=== PATIENT | male | born 1940 | race Caucasian/White ===

== ENCOUNTER 2017-05-05 18:05 | Emergency (ER) | payer OTHER ==
[~2017-05-05] VITALS: Ht 167.6 cm; Wt 92.5 kg
[~2017-05-05 18:05] MED LIST: ACET-1311 PO; ASCO500T3 PO; ASPEC81 PO; ATV5 PO; BROM0.07 OPL; LISI5TAB3 PO; METO25TA56 PO; MULT-506 PO; NTRGSL/4 UT; OXYC-57 PO; PRED1SUS3 OPL; PRLSR20 PO; SERT-234 PO; SIMV80TA2 PO
[2017-05-05 18:07] VITALS: TEMP 37.1; Ht 167.6 cm; Wt 92.5 kg
--- NOTE | 2017-05-05 18:42 | DIAGNOSTIC IMAGING REPORT ---
CHEST ONE VIEW PORTABLE CLINICAL HISTORY: 76 years-old Male presenting with ABDOMINAL PAIN/GI. TECHNIQUE: Portable upright AP view of the chest was obtained. COMPARISON: 01/05/2014. FINDINGS: Atherosclerosis of aortic arch. Cardiac silhouette top normal in size, unchanged. Mildly prominent lung markings at the bases. Otherwise lungs and pleural spaces clear. Osseous structures normal. Upper abdomen normal. IMPRESSION: 1. No acute cardiopulmonary disease. Electronically signed by: Jose Roberto Gordon M.D. 05/05/2017 6:40 PM Dictated Date/Time: 05/05/2017 6:39 PM
--- NOTE | 2017-05-05 18:47 | EMERGENCY ROOM VISIT NOTE ---
History Report prepared by Christi: Gabby Ellis Under the Supervision of: Dr. Reginald Hidalgo D.O. First contact with patient: 18:11 Chief Complaint: ABDOMINAL PAIN Stated Complaint: STOMACH PAIN,ACHES ALL OVER History of Present Illness The patient is a 76 year old male who presents to the Emergency Room with complaints of persistent constipation starting 3 days ago. He has not had any bowel movements in the past 3 days. He tried taking Mylanta yesterday to no significant relief. He started taking Miralax today. He is now having abdominal pain. It worsens with deep breaths. He had some diarrhea 1 week ago which resolved. He denies any melena, hematochezia, chest pain, SOB, or back pain. He has been on Percocet for back pain for the past 4-5 years. He has a history of spinal stenosis. He has not had constipation from Percocet before. He has not started any new medications recently. He does smoke. He denies any alcohol use. He denies any history of diverticulitis, diverticulosis, or kidney stones. He is currently not on any blood thinners. He has had a colonoscopy in the past. He states that he is due for a colonoscopy soon. Source of History: patient Onset: 3 days ago Position: other (global) Quality: other (constipation) Timing: other (persistent) Associated Symptoms: + abdominal pain, No chest pain, No SOB, No back pain, No melena, No hematochezia, No diarrhea Review of Systems See HPI for pertinent positives & negatives. A total of 10 systems reviewed and were otherwise negative. Past Medical & Surgical Medical Problems: (1) Acute cholecystitis (2) Hypertension Family History Cancer Heart disease Hypertension Social History Smoking Status: Current Every Day Smoker Alcohol Use: none Marital Status: Housing Status: lives with family Occupation Status: retired Current/Historical Medications Scheduled Ascorbic Acid (Vitamin C), 1 TAB PO DAILY Finasteride (Proscar), 1 TAB PO DAILY Fluticasone Propionate (Nasal) (Flonase Allergy Relief), 2 SPRAYS SIMONA DAILY Lisinopril (Lisinopril), 5 MG PO HS Loratadine (Claritin), 1 TAB PO DAILY Metoprolol Tartrate (Lopressor) (Lopressor), 25 MG PO BID Multivitamin (Multivitamin), 1 TAB PO DAILY Omeprazole (Prilosec), 20 MG PO BID Sertraline (Zoloft), 100 MG PO HS Simvastatin (Zocor), 80 MG PO HS Tamsulosin Hcl (Flomax), 0.4 MG PO HS Tolterodine Tartrate (Detrol LA), 1 CAP PO DAILY Trazodone Hcl (Trazodone), 100 MG PO HS Scheduled PRN Nitroglycerin (Nitrostat), 0.4 MG UT PRN PRN for CHEST PAIN Oxycodone/Acetaminophen 5MG/325MG (Percocet 5MG/325MG), 1 TABLET PO Q6H PRN for Pain Allergies Coded Allergies: Cefaclor (Verified Allergy, Intermediate, "SWELLED-UP", 05/05/17) Aspirin (Verified Allergy, Unknown, BLEEDING ULCER, 05/05/17) States he now takes 81mg daily with no trouble. Physical Exam Vital Signs Date Time Temp Pulse Resp B/P (MAP) Pulse Ox O2 Delivery O2 Flow Rate FiO2 05/05/17 21:27 100 20 130/76 95 05/05/17 19:54 106 20 121/82 94 Room Air 05/05/17 18:07 37.1 107 20 142/79 96 Room Air Physical Exam GENERAL: Patient is awake, alert, and in no acute distress. Patient is resting comfortably and showing no signs of anxiety EYES: The conjunctivae are clear. The pupils are round and reactive. EARS, NOSE, MOUTH AND THROAT: The nose is without any evidence of any deformity. Mucous membranes are moist tongue is midline NECK: The neck is nontender and supple. RESPIRATORY: Normal respiratory effort is noted there is no evidence of wheezing rhonchi or rales CARDIOVASCULAR: Regular rate and rhythm noted there no murmurs rubs or gallops normal S1 normal S2 GASTROINTESTINAL: The abdomen is moderately distended but soft. Diffuse tenderness to palpation but no guarding or rigidity. BACK: No midline tenderness or or step-off noted range of motion in flexion extension as well as rotation no signs of muscle spasm noted MUSCULOSKELETAL/EXTREMITIES: There is no evidence of gross deformity full range of motion is noted in the hips and shoulders SKIN: There is no obvious evidence of any rash. There are no petechiae, pallor or cyanosis noted. NEUROLOGIC: Patient is awake alert and oriented x3 Medical Decision & Procedures ER Provider Diagnostic Interpretation: X-ray results as stated below per interpretation by me and the radiologist. Radiology results as stated below per my review and radiologist interpretation: CHEST ONE VIEW PORTABLE CLINICAL HISTORY: 76 years-old Male presenting with ABDOMINAL PAIN/GI. TECHNIQUE: Portable upright AP view of the chest was obtained. COMPARISON: 01/05/2014. FINDINGS: Atherosclerosis of aortic arch. Cardiac silhouette top normal in size, unchanged. Mildly prominent lung markings at the bases. Otherwise lungs and pleural spaces clear. Osseous structures normal. Upper abdomen normal. IMPRESSION: 1. No acute cardiopulmonary disease. Electronically signed by: Jose Roberto Gordon M.D. 05/05/2017 6:40 PM Dictated Date/Time: 05/05/2017 6:39 PM ABD/PELVIS NO IV OR ORAL CONT CLINICAL HISTORY: 76 years-old Male presenting with pain, decreased BM. TECHNIQUE: Multidetector CT of the abdomen and pelvis was performed without the use of intravenous contrast. IV contrast: None. A dose lowering technique was used consistent with the principles of ALARA (as low as reasonably achievable). COMPARISON: None. CT DOSE (mGy.cm): The estimated cumulative dose is 921.74 mGy.cm. FINDINGS: Shopfitter topogram: Unremarkable. Lung bases: Minimal dependent changes likely atelectasis. Mosaic attenuation could suggest small airways disease. Multichamber enlargement of the heart. Coronary artery and aortic valve calcification. Trace pericardial effusion. No pleural effusion. Liver: Normal morphology. Density consistent with hepatic steatosis. Biliary: Mild dilatation of the extrahepatic bile duct allowing for noncontrast technique. Cholelithiasis with mild gallbladder distention and gallbladder wall thickening. Trace pericholecystic inflammatory change inferiorly. Pancreas: Mild parenchymal atrophy. Spleen: Normal noncontrast appearance. Adrenal glands: Normal noncontrast appearance. Kidneys and ureters: Bilateral nonobstructing renal calculi, the largest on the left measuring 3 mm and on the right measuring 2 mm. No hydronephrosis. Bladder: Incompletely evaluated secondary to underdistention. Pelvic organs: Prostate enlargement likely secondary to benign prostatic hyperplasia. Bowel: Diverticulosis of the sigmoid colon with mild wall thickening suggestive of chronic diverticular disease. Intramural fat deposition is suggested at multiple sites in the large bowel, which is nonspecific but could suggest chronic inflammatory change, extend exposure to steroids, or obesity. Normal appendix. No bowel obstruction. Peritoneal cavity: No free fluid or intraperitoneal gas. Lymph nodes: No gross lymphadenopathy allowing for noncontrast technique. Few prominent subcentimeter lymph nodes in the portacaval region likely reactive. Vasculature: Atherosclerosis of the normal caliber abdominal aorta. Displacement of intimal calcifications towards the lumen (series 3 image 169) suggest chronic dissection. Abdominal wall: Diastasis of the rectus abdominis. Musculoskeletal: Degenerative changes of the spine. Severe osteopenia. IMPRESSION: 1. Findings highly suspicious for acute cholecystitis. 2. Hepatic steatosis. 3. Bilateral nonobstructing nephrolithiasis. 4. 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 5. Osteopenia. The report will be called/faxed according to standard departmental protocol. Electronically signed by: Jose Roberto Gordon M.D. 05/05/2017 8:00 PM Dictated Date/Time: 05/05/2017 7:53 PM Laboratory Results 05/05/17 18:50 Red Blood Count 4.63, Mean Corpuscular Volume 89.4, Mean Corpuscular Hemoglobin 32.4, Mean Corpuscular Hemoglobin Concent 36.2, Mean Platelet Volume 9.8, Neutrophils (%) (Auto) 79.6, Lymphocytes (%) (Auto) 10.5, Monocytes (%) (Auto) 9.2, Eosinophils (%) (Auto) 0.3, Basophils (%) (Auto) 0.1, Neutrophils # (Auto) 11.80, Lymphocytes # (Auto) 1.56, Monocytes # (Auto) 1.37, Eosinophils # (Auto) 0.04, Basophils # (Auto) 0.02 05/05/17 18:50 Test 05/05/17 18:50 White Blood Count 14.83 K/uL (4.8-10.8) Red Blood Count 4.63 M/uL (4.7-6.1) Hemoglobin 15.0 g/dL (14.0-18.0) Hematocrit 41.4 % (42-52) Mean Corpuscular Volume 89.4 fL (80-100) Mean Corpuscular Hemoglobin 32.4 pg (25-34) Mean Corpuscular Hemoglobin Concent 36.2 g/dl (32-36) Platelet Count 205 K/uL (130-400) Mean Platelet Volume 9.8 fL (7.4-10.4) Neutrophils (%) (Auto) 79.6 % Lymphocytes (%) (Auto) 10.5 % Monocytes (%) (Auto) 9.2 % Eosinophils (%) (Auto) 0.3 % Basophils (%) (Auto) 0.1 % Neutrophils # (Auto) 11.80 K/uL (1.4-6.5) Lymphocytes # (Auto) 1.56 K/uL (1.2-3.4) Monocytes # (Auto) 1.37 K/uL (0.11-0.59) Eosinophils # (Auto) 0.04 K/uL (0-0.5) Basophils # (Auto) 0.02 K/uL (0-0.2) RDW Standard Deviation 44.7 fL (36.4-46.3) RDW Coefficient of Variation 13.6 % (11.5-14.5) Immature Granulocyte % (Auto) 0.3 % Immature Granulocyte # (Auto) 0.04 K/uL (0.00-0.02) Urine Color DK YELLOW Urine Appearance CLEAR (CLEAR) Urine pH 7.5 (4.5-7.5) Urine Specific [place] 1.026 (1.000-1.030) Urine Protein 1+ (NEG) Urine Glucose (UA) NEG (NEG) Urine Ketones TRACE (NEG) Urine Occult Blood 2+ (NEG) Urine Nitrite NEG (NEG) Urine Bilirubin NEG (NEG) Urine Urobilinogen NEG (NEG) Urine Leukocyte Esterase TRACE (NEG) Urine WBC (Auto) 1-5 /hpf (0-5) Urine RBC (Auto) >30 /hpf (0-4) Urine Hyaline Casts (Auto) >30 /lpf (0-5) Urine Epithelial Cells (Auto) >30 /lpf (0-5) Urine Bacteria (Auto) 1+ (NEG) Urine Renal Epithelial Cells /lpf (0-5) Urine Pathogenic Casts /lpf (0) Urine Mucus PRESENT (NONE PRSENT) Anion Gap 9.0 mmol/L (3-11) Est Creatinine Clear Calc Drug Dose 70.0 ml/min Estimated GFR () 88.1 Estimated GFR (Non- 76.1 BUN/Creatinine Ratio 14.2 (10-20) Calcium Level 9.2 mg/dl (8.5-10.1) Total Bilirubin 0.7 mg/dl (0.2-1) Direct Bilirubin 0.2 mg/dl (0-0.2) Aspartate Amino Transf (AST/SGOT) 19 U/L (15-37) Alanine Aminotransferase (ALT/SGPT) 22 U/L (12-78) Alkaline Phosphatase 90 U/L (45-117) Troponin I < 0.015 ng/ml (0-0.045) Total Protein 8.5 gm/dl (6.4-8.2) Albumin 3.7 gm/dl (3.4-5.0) Lipase 63 U/L (73-393) Laboratory results per my review. Medications Administered Medications (Trade) Dose Ordered Sig/Cristina Route Start Time Stop Time Status Last Admin Dose Admin Amoxicillin/ Clavulanate Potassium (Augmentin 875MG Home Pack) 1 homepack UD ONCE PO 05/05/17 20:15 05/05/17 20:16 DC 05/05/17 20:47 1 HOMEPACK Amoxicillin/ Clavulanate Potassium (Augmentin Tab) 875 mg NOW ONCE PO 05/05/17 20:15 05/05/17 20:16 DC 05/05/17 20:47 875 MG ECG Indication: tachycardia Rate (beats per minute): 101 Rhythm: sinus tachycardia Findings: PVC, other (LVH by voltage criteria, no acute ST segment abnormality) Comparison ECG Date: 05-Jan-2011 Change: Increased rate otherwise no change. ED Course 1817: The patient was evaluated in room C7. A complete history and physical examination were performed. 1926: I reevaluated the patient. He is stable. He would like to go home. 2004: NSS 1000 ml @ 999 mls/hr IV, Zofran Inj 4 mg IV, Zosyn Iv 4.5 gm IV. 2005: I discussed the patient's case with Dr. Bustillos, [facility] [place] general surgery. He will evaluate the patient. 2006: I reevaluated the patient. I discussed the results with him. He states that he does not want to stay because his granddaughter needs the car. He will sign out against medical advice. 2015: Augmentin Tab 875 mg PO, Augmentin 875 mg 1 homepack PO, Morphine Sulfate 4 mg IV. 2016: Dr. Bustillos has evaluated the patient. The patient is still refusing to stay. He will sign out again medical advice. Medical Decision Prior records/ancillary studies reviewed. Triage Nursing notes reviewed. The patient's history was concerning for abdominal pain. Differential diagnosis: Etiologies such as appendicitis, diverticulitis, PUD, biliary pathology, UTI, pancreatitis, obstruction, mesenteric ischemia, aortic pathology, infections, inflammatory bowel disease, renal colic, as well as others were entertained. The patient is a 76-year-old male who presented to the emergency department for abdominal pain. The patient also felt constipated. On physical exam he did have significant right upper quadrant tenderness but also diffuse tenderness. The patient's workup was consistent with cholecystitis. He was ordered IV pain medicine IV fluids IV antiemetics and IV antibiotics but the patient did not wish to stay in the hospital for an evaluation and for further management of this cholecystitis. I discussed his case with the on-call general surgeon. He was evaluated by the on-call general surgeon while he was in the emergency department. The patient still signed out against medical dermatologist and was encouraged to return immediately after he went home. The patient stated he had some things he needed to do at home. The patient was encouraged to return to the emergency Department immediately and not have any food or drink. He was started on a course of oral antibiotics but I told him that this would not be a replacement for what he needed which was a cholecystectomy and further evaluation of his hepatobiliary system. The patient was reevaluated multiple times. Medication Reconcilliation Current Medication List: was personally reviewed by me Blood Pressure Screening Patient's blood pressure: Normal blood pressure Blood pressure disposition: Did not require urgent referral Consults Consulting Physician: Dr. Bustillos, [facility] [place] general surgery Returned Call: [phone] I discussed the patient's case with him. He will evaluate the patient. Impression Primary Impression: Cholecystitis Additional Impression: Abdominal pain Scribe Attestation The scribe's documentation has been prepared under my direction and personally reviewed by me in its entirety. I confirm that the note above accurately reflects all work, treatment, procedures, and medical decision making performed by me. Departure Information Dispostion Home / Self-Care Referrals Cindy Gibbons D.O. (PCP) Salas Gibbons D.O. Forms Call Back Authorization, HOME CARE DOCUMENTATION FORM, IMPORTANT VISIT INFORMATION Patient Instructions ED Gallbladder Infec Conf, [facility] Additional Instructions Return to the emergency department immediately as soon as he can for further evaluation and IV antibiotics IV fluids and further evaluation for surgical intervention on your gallbladder. Try not to eat or drink prior to coming back to the emergency department. Continue all medications as prescribed. Problem Qualifiers Additional Impression: Abdominal pain Abdominal location: generalized Qualified Codes: R10.84 - Generalized abdominal pain
[2017-05-05] MEDS ORDERED: FLUT0.15 NAE (18:56)
[2017-05-05] MEDS ORDERED: ASPI81TA21 PO (18:56)
[2017-05-05] MEDS ORDERED: ANXIETY MED PO (18:56)
[2017-05-05] MEDS ORDERED: LSN5 PO (18:56)
[2017-05-05 19:02] LABS: BASO % 0.1 %; BASO ABS # 0.02 K/uL (0-0.2); COMPLETE YES; EOS % 0.3 %; HEMATOCRIT 41.4 % (42-52); IG% 0.3 %; LYMPH % 10.5 %; LYMPH ABS # 1.56 K/uL (1.2-3.4); MEAN CELL VOLUME 89.4 fL (80-100); MEAN CORPUSCULAR HEMOGLOBIN 32.4 pg (25-34); MEAN CORPUSCULAR HGB CONC 36.2 g/dl (32-36); MEAN PLATELET VOLUME 9.8 fL (7.4-10.4); MONO % 9.2 %; NEUT % 79.6 %; PLATELET COUNT 205 K/uL (130-400); RED BLOOD COUNT 4.63 M/uL (4.7-6.1); WHITE BLOOD COUNT 14.83 K/uL (4.8-10.8)
[2017-05-05 19:13] LABS: URINE APPEARANCE CLEAR (CLEAR); URINE COLOR DK YELLOW; URINE EPITHELIAL CELL AUTO >30 /lpf (0-5); URINE NITRITE NEG (NEG); URINE PH 7.5 (4.5-7.5); URINE SPECIFIC GRAVITY 1.026 (1.000-1.030); UROBILINOGEN NEG (NEG)
[2017-05-05 19:19] LABS: BUN/CREATININE RATIO 14.2 (10-20); CALCIUM 9.2 mg/dl (8.5-10.1); CREATININE 0.97 mg/dl (0.60-1.40); POTASSIUM 3.6 mmol/L (3.5-5.1)
[2017-05-05 19:24] LABS: MANUAL MICROSCOPIC REQUIRED? NO; REVIEW REQ? YES; SULFASALICYLIC ACID POS (NEG); URINE BILIRUBIN NEG (NEG)
[2017-05-05 19:26] LABS: URINE MUCUS PRESENT (NONE PRSENT)
--- NOTE | 2017-05-05 20:02 | DIAGNOSTIC IMAGING REPORT ---
ABD/PELVIS NO IV OR ORAL CONT CLINICAL HISTORY: 76 years-old Male presenting with pain, decreased BM. TECHNIQUE: Multidetector CT of the abdomen and pelvis was performed without the use of intravenous contrast. IV contrast: None. A dose lowering technique was used consistent with the principles of ALARA (as low as reasonably achievable). COMPARISON: None. CT DOSE (mGy.cm): The estimated cumulative dose is 921.74 mGy.cm. FINDINGS: Brass Plater topogram: Unremarkable. Lung bases: Minimal dependent changes likely atelectasis. Mosaic attenuation could suggest small airways disease. Multichamber enlargement of the heart. Coronary artery and aortic valve calcification. Trace pericardial effusion. No pleural effusion. Liver: Normal morphology. Density consistent with hepatic steatosis. Biliary: Mild dilatation of the extrahepatic bile duct allowing for noncontrast technique. Cholelithiasis with mild gallbladder distention and gallbladder wall thickening. Trace pericholecystic inflammatory change inferiorly. Pancreas: Mild parenchymal atrophy. Spleen: Normal noncontrast appearance. Adrenal glands: Normal noncontrast appearance. Kidneys and ureters: Bilateral nonobstructing renal calculi, the largest on the left measuring 3 mm and on the right measuring 2 mm. No hydronephrosis. Bladder: Incompletely evaluated secondary to underdistention. Pelvic organs: Prostate enlargement likely secondary to benign prostatic hyperplasia. Bowel: Diverticulosis of the sigmoid colon with mild wall thickening suggestive of chronic diverticular disease. Intramural fat deposition is suggested at multiple sites in the large bowel, which is nonspecific but could suggest chronic inflammatory change, extend exposure to steroids, or obesity. Normal appendix. No bowel obstruction. Peritoneal cavity: No free fluid or intraperitoneal gas. Lymph nodes: No gross lymphadenopathy allowing for noncontrast technique. Few prominent subcentimeter lymph nodes in the portacaval region likely reactive. Vasculature: Atherosclerosis of the normal caliber abdominal aorta. Displacement of intimal calcifications towards the lumen (series 3 image 169) suggest chronic dissection. Abdominal wall: Diastasis of the rectus abdominis. Musculoskeletal: Degenerative changes of the spine. Severe osteopenia. IMPRESSION: 1. Findings highly suspicious for acute cholecystitis. 2. Hepatic steatosis. 3. Bilateral nonobstructing nephrolithiasis. 4. 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 5. Osteopenia. The report will be called/faxed according to standard departmental protocol. Electronically signed by: Jose Roberto Gordon M.D. 05/05/2017 8:00 PM Dictated Date/Time: 05/05/2017 7:53 PM
[2017-05-05] MEDS ORDERED: PIPERACILLIN/TAZOBACTAM 4.5 GM/100ML D5W IV STA (20:04)
[2017-05-05] MEDS ORDERED: ONDANSETRON INJ 2 MG/ML 2 ML VIAL IV STA (20:04)
[2017-05-05] MEDS ORDERED: SODIUM CHLORIDE 0.9% 1000ML 1,000 ML IV STA (20:04)
[2017-05-05] MEDS ORDERED: AMOXICIL/CLAVU 875MG HOME PACK PO ONE (20:15)
[2017-05-05] MEDS ORDERED: AMOXICILLIN/CLAVULANATE TAB 875 MG TAB PO ONE (20:15)
[2017-05-05] MEDS ORDERED: MoRPHine SULFATE 4 MG/ML 1 ML CARP\\VIAL IV PRN (20:15)
--- NOTE | 2017-05-05 20:54 | Medical Consult ---
Consultation Date of Consultation: May 05, 2017. Attending Physician: Reason for Consultation: Cholecystitis History of Present Illness 76-year-old male presented to the emergency department with several day history of abdominal pain. Initially thought this was constipation and gas pains. He denies any history of postprandial pain or similar pains in the past. He had an elevated white count was very tender on exam in the right upper quadrant. A CT scan revealed what appears to be acute cholecystitis. The patient has a history of possible myocardial infarction in the past that was seen on a nuclear stress test, and he occasionally takes nitroglycerin tablets for angina. He denies ever having a history of stent placed. He is not on any blood thinning medications except for a baby aspirin. He says he can walk up 2 flights of stairs without difficulty. He is an active smoker. He endorses some nausea, but denies any fevers. He states he has some things to do before he would be admitted to the hospital. Past Medical/Surgical History Past medical history: Hypertension, nicotine dependence, hyperlipidemia, history of bleeding gastric ulcer, history of myocardial infarction Past surgical history: Denies history of abdominal surgery. Family History Cancer Heart disease Hypertension Social History Smoking Status: Current Every Day Smoker Marital Status: Housing Status: lives with family Occupation Status: retired Allergies Coded Allergies: Cefaclor (Verified Allergy, Intermediate, "SWELLED-UP", 05/05/17) Aspirin (Verified Allergy, Unknown, BLEEDING ULCER, 05/05/17) States he now takes 81mg daily with no trouble. Home Medications Active Reported [Anxiety Med(New)] Unknown Dose PO DIRECTED PRN Flonase Allergy Relief (Fluticasone Propionate (Nasal)) 50 Mcg/Act Spr 2 Sprays SIMONA DAILY Lisinopril 5 Mg Tab 5 Mg PO HS Ecotrin Or Generic (Aspirin) 81 Mg Tab 81 Mg PO HS Tylenol (Acetaminophen) 325 Mg Tab 325 Mg PO PRN Zoloft (Sertraline HCl) 100 Mg Tab 100 Mg PO HS Vitamin C (Ascorbic Acid) 500 Mg Tab 1 Tab PO DAILY Nitrostat (Nitroglycerin) 0.4 Mg Tab 0.4 Mg UT PRN PRN Percocet 5MG/325MG (Oxycodone/Acetaminophen) Tab 1 Tablet PO Q6H PRN PAIN Lopressor (Metoprolol Tartrate) 25 Mg Tab 25 Mg PO BID Prilosec (Omeprazole) 20 Mg Capcr 20 Mg PO BID Multivitamin (Multivitamins) Tab 1 Tab PO DAILY Zocor (Simvastatin) 80 Mg Tab 80 Mg PO HS Current Inpatient Medications 10 point review of systems negative except as above Physical Exam Date Time Temp Pulse Resp B/P (MAP) Pulse Ox O2 Delivery O2 Flow Rate FiO2 05/05/17 19:54 106 20 121/82 94 Room Air 05/05/17 18:07 37.1 107 20 142/79 96 Room Air General Appearance: WD/WN, + moderate distress, + obese Head: normocephalic, atraumatic Eyes: normal inspection, PERRL, EOMI ENT: normal ENT inspection, hearing grossly normal Neck: supple, no adenopathy, no JVD Respiratory/Chest: chest non-tender, no respiratory distress, no accessory muscle use, + crackles Cardiovascular: regular rate, rhythm, no edema, no JVD, normal peripheral pulses Abdomen/GI: normal bowel sounds, soft, no organomegaly, no pulsatile mass, + tenderness (tender to palpation in right upper quadrant with localized guarding and positive Schaefer sign.) Back: normal inspection, no muscle spasm Extremities/Musculoskelatal: normal inspection, no calf tenderness, no pedal edema Neurologic/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: 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, alert, normal mood/affect, oriented x 3 Skin: normal color, warm/dry, no rash Lymphatic: no adenopathy Laboratory Results Last 24 Hours Test 05/05/17 18:50 White Blood Count 14.83 K/uL Red Blood Count 4.63 M/uL Hemoglobin 15.0 g/dL Hematocrit 41.4 % Mean Corpuscular Volume 89.4 fL Mean Corpuscular Hemoglobin 32.4 pg Mean Corpuscular Hemoglobin Concent 36.2 g/dl Platelet Count 205 K/uL Mean Platelet Volume 9.8 fL Neutrophils (%) (Auto) 79.6 % Lymphocytes (%) (Auto) 10.5 % Monocytes (%) (Auto) 9.2 % Eosinophils (%) (Auto) 0.3 % Basophils (%) (Auto) 0.1 % Neutrophils # (Auto) 11.80 K/uL Lymphocytes # (Auto) 1.56 K/uL Monocytes # (Auto) 1.37 K/uL Eosinophils # (Auto) 0.04 K/uL Basophils # (Auto) 0.02 K/uL RDW Standard Deviation 44.7 fL RDW Coefficient of Variation 13.6 % Immature Granulocyte % (Auto) 0.3 % Immature Granulocyte # (Auto) 0.04 K/uL Urine Color DK YELLOW Urine Appearance CLEAR Urine pH 7.5 Urine Specific [place] 1.026 Urine Protein 1+ Urine Glucose (UA) NEG Urine Ketones TRACE Urine Occult Blood 2+ Urine Nitrite NEG Urine Bilirubin NEG Urine Urobilinogen NEG Urine Leukocyte Esterase TRACE Urine WBC (Auto) 1-5 /hpf Urine RBC (Auto) >30 /hpf Urine Hyaline Casts (Auto) >30 /lpf Urine Epithelial Cells (Auto) >30 /lpf Urine Bacteria (Auto) 1+ Urine Renal Epithelial Cells /lpf Urine Pathogenic Casts /lpf Urine Mucus PRESENT Sodium Level 130 mmol/L Potassium Level 3.6 mmol/L Chloride Level 95 mmol/L Carbon Dioxide Level 26 mmol/L Anion Gap 9.0 mmol/L Blood Urea Nitrogen 14 mg/dl Creatinine 0.97 mg/dl Est Creatinine Clear Calc Drug Dose 70.0 ml/min Estimated GFR () 88.1 Estimated GFR (Non- 76.1 BUN/Creatinine Ratio 14.2 Random Glucose 147 mg/dl Calcium Level 9.2 mg/dl Total Bilirubin 0.7 mg/dl Direct Bilirubin 0.2 mg/dl Aspartate Amino Transf (AST/SGOT) 19 U/L Alanine Aminotransferase (ALT/SGPT) 22 U/L Alkaline Phosphatase 90 U/L Troponin I < 0.015 ng/ml Total Protein 8.5 gm/dl Albumin 3.7 gm/dl Lipase 63 U/L ABD/PELVIS NO IV OR ORAL CONT CLINICAL HISTORY: 76 years-old Male presenting with pain, decreased BM. TECHNIQUE: Multidetector CT of the abdomen and pelvis was performed without the use of intravenous contrast. IV contrast: None. A dose lowering technique was used consistent with the principles of ALARA (as low as reasonably achievable). COMPARISON: None. CT DOSE (mGy.cm): The estimated cumulative dose is 921.74 mGy.cm. FINDINGS: Hospitality Housekeeper topogram: Unremarkable. Lung bases: Minimal dependent changes likely atelectasis. Mosaic attenuation could suggest small airways disease. Multichamber enlargement of the heart. Coronary artery and aortic valve calcification. Trace pericardial effusion. No pleural effusion. Liver: Normal morphology. Density consistent with hepatic steatosis. Biliary: Mild dilatation of the extrahepatic bile duct allowing for noncontrast technique. Cholelithiasis with mild gallbladder distention and gallbladder wall thickening. Trace pericholecystic inflammatory change inferiorly. Pancreas: Mild parenchymal atrophy. Spleen: Normal noncontrast appearance. Adrenal glands: Normal noncontrast appearance. Kidneys and ureters: Bilateral nonobstructing renal calculi, the largest on the left measuring 3 mm and on the right measuring 2 mm. No hydronephrosis. Bladder: Incompletely evaluated secondary to underdistention. Pelvic organs: Prostate enlargement likely secondary to benign prostatic hyperplasia. Bowel: Diverticulosis of the sigmoid colon with mild wall thickening suggestive of chronic diverticular disease. Intramural fat deposition is suggested at multiple sites in the large bowel, which is nonspecific but could suggest chronic inflammatory change, extend exposure to steroids, or obesity. Normal appendix. No bowel obstruction. Peritoneal cavity: No free fluid or intraperitoneal gas. Lymph nodes: No gross lymphadenopathy allowing for noncontrast technique. Few prominent subcentimeter lymph nodes in the portacaval region likely reactive. Vasculature: Atherosclerosis of the normal caliber abdominal aorta. Displacement of intimal calcifications towards the lumen (series 3 image 169) suggest chronic dissection. Abdominal wall: Diastasis of the rectus abdominis. Musculoskeletal: Degenerative changes of the spine. Severe osteopenia. IMPRESSION: 1. Findings highly suspicious for acute cholecystitis. 2. Hepatic steatosis. 3. Bilateral nonobstructing nephrolithiasis. 4. 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 5. Osteopenia. The report will be called/faxed according to standard departmental protocol. Assessment & Plan 76-year-old male with likely acute calculus cholecystitis. He does have a history of prior myocardial infarction and some intermittent angina, therefore he will need a cardiac workup prior to any surgical intervention. He also needs a right upper quadrant AROUND for further evaluation of his gallbladder and bile ducts. The patient states that he has to go home and take care of some things, and then he will return to be admitted later this evening Recommend admission to the hospitalist service Nothing by mouth, IV fluids, IV antibiotics Recommend right upper quadrant ultrasound when he returns Recurrent preop cardiac evaluation given history of myocardial infarction We will plan for endoscopic cholecystectomy with possible intraoperative cholangiogram during his hospital stay The risks of the procedure were discussed include but are not limited to bleeding, infection, damage, bile duct, retained stone, bile leak, conversion to open, damage to surrounding structures, need for future more extensive surgery, and the risks of anesthesia The diagnosis, details of the surgery, the plan of care were discussed with the patient, all questions were answered, the patient expressed understanding and agreed with the plan of care as stated. He states he'll return to admitted to the hospitalist service later this evening
[2017-05-05 21:27] VITALS: BP 130/76; PULSE 100; O2SAT 95
[2017-05-05] MEDS ORDERED: FINA5TAB4 PO (23:40)
[2017-05-05] MEDS ORDERED: TAMS0.4C38 PO (23:40)
[2017-05-05] MEDS ORDERED: DTRSR4 PO (23:40)
[2017-05-05] MEDS ORDERED: LORA10TA51 PO (23:40)
[2017-05-05] MEDS ORDERED: TRAZ100T29 PO (23:40)
== END 2017-05-05 20:46 | disposition left against medical advice (07) ==
LOC: C.EDB 18:06 → C.EDC 20:46
DX: K81.2 Acute cholecystitis with chronic cholecystitis (principal); I10 Essential (primary) hypertension; F17.200 Nicotine dependence, unspecified, uncomplicated; Z79.891 Long term (current) use of opiate analgesic; Z82.49 Family history of ischemic heart disease and other diseases of the circulatory system

== ENCOUNTER 2017-05-05 21:41 | Inpatient (IN) | payer OTHER ==
[~2017-05-05] VITALS: Ht 170.2 cm; Wt 92.4 kg
[~2017-05-05 21:41] MED LIST changes: +ANXIETY MED PO; +ASPI81TA21 PO; +FLUT0.15 NAE; +LSN5 PO
[2017-05-05] MEDS ORDERED: ONDANSETRON INJ 2 MG/ML 2 ML VIAL IV STA (21:53)
[2017-05-05] MEDS ORDERED: HYDROmorphone INJ 0.5 MG/0.5 ML SYR IV STA (21:53)
[2017-05-05] MEDS ORDERED: METRONIDAZOLE 500MG / 100ML NSS IV STA (21:53)
[2017-05-05] MEDS ORDERED: LEVAQUIN 750MG / 150ML D5W IV ONE (22:00)
[2017-05-05] MEDS ORDERED: SODIUM CHLORIDE 0.9% 1000ML 1,000 ML IV ONE (22:00)
--- NOTE | 2017-05-05 22:19 | EMERGENCY ROOM VISIT NOTE ---
ED Visit Note First contact with patient: 21:47 76-year-old male with abdominal pain returned after an earlier visit today and was evaluated by Rambo Sebastian PA-C. Please see his note. I also independently evaluated the patient. The patient will be admitted and prepared for possible cholecystectomy. The patient was given IV antibiotics.
[2017-05-05] MEDS ORDERED: ACETAMINOPHEN 325 MG TAB PO PRN (23:00)
[2017-05-05] MEDS ORDERED: ONDANSETRON INJ 2 MG/ML 2 ML VIAL IV PRN (23:00)
[2017-05-05] MEDS ORDERED: TAMS0.4C38 PO (23:40)
[2017-05-05] MEDS ORDERED: DTRSR4 PO (23:40)
[2017-05-05] MEDS ORDERED: FINA5TAB4 PO (23:40)
[2017-05-05] MEDS ORDERED: LORA10TA51 PO (23:40)
[2017-05-05] MEDS ORDERED: TRAZ100T29 PO (23:40)
[2017-05-05] MEDS: MoRPHine SULFATE 2 MG/ML CARP IV PRN (23:42)
[2017-05-06] MEDS ORDERED: PIPERACILL/TAZOBAC CONSULT ACTIVE PRN (00:15)
[2017-05-06] MEDS ORDERED: PIPERACILL/TAZOBAC IV 3.375 GM in DEXTROSE 5% 100ML 100 ML IV ONE (00:30)
[2017-05-06 00:45] VITALS: BP 128/72; PULSE 105; TEMP 36.6; O2SAT 95; Ht 170.2 cm; Wt 92.4 kg
--- NOTE | 2017-05-06 00:50 | History and Physical ---
History & Physical Date & Time of Service: May 05, 2017 at 23:45 Chief Complaint: Gallbladder, Infection Primary Care Physician: Salas Gibbons D.OIsabel History of Present Illness Source: patient, family, clinic records, hospital records 76 year old male with PMH CAD, tobacco use, dyslipidemia, chronic rhinitis presents to the Emergency Room with complaints of Abdominal pain. Pt was in the ER early and signed AMA because he had to gave the car to his granddaughter. Now return back to the ER. Pt said that He continue to have 10/10 abdominal pain , constant, located across the abdomen. Worsening with deep breathing. Pt said that He has not had any bowel movements in the past 3 days. He thought the pain was due to the constipation. He tried taking Mylanta yesterday with no significant relief. He said about 1 week ago he had diarrhea. He does have some nausea but no episodes of vomiting. He was seen by surgery early Dr. Tressa molina recommended to get an U/S and plan for endoscopic cholecystectomy with possible intraoperative cholangiogram. Pt said that he is very active. He said that last time he took nitro for chest discomfort was about 6 to 8 months ago. He denies any chest pain, palpitation, dizziness, fever , vomiting and SOB Past Medical/Surgical History Medical Problems: (1) Hypertension Status: Chronic Family History Cancer Heart disease Hypertension Social History Smoking Status: Current Every Day Smoker Marital Status: Housing status: lives alone Occupational Status: retired Immunizations History of Influenza Vaccine: Yes History of Tetanus Vaccine?: Yes History of Pneumococcal: No History of Hepatitis B Vaccine: Unknown Allergies Coded Allergies: Cefaclor (Verified Allergy, Intermediate, "SWELLED-UP", 05/05/17) Aspirin (Verified Allergy, Unknown, BLEEDING ULCER, 05/05/17) States he now takes 81mg daily with no trouble. Home Medications Scheduled Ascorbic Acid (Vitamin C), 1 TAB PO DAILY Finasteride (Proscar), 1 TAB PO DAILY Fluticasone Propionate (Nasal) (Flonase Allergy Relief), 2 SPRAYS SIMONA DAILY Lisinopril (Lisinopril), 5 MG PO HS Loratadine (Claritin), 1 TAB PO DAILY Metoprolol Tartrate (Lopressor) (Lopressor), 25 MG PO BID Multivitamin (Multivitamin), 1 TAB PO DAILY Omeprazole (Prilosec), 20 MG PO BID Sertraline (Zoloft), 100 MG PO HS Simvastatin (Zocor), 80 MG PO HS Tamsulosin Hcl (Flomax), 0.4 MG PO HS Tolterodine Tartrate (Detrol LA), 1 CAP PO DAILY Trazodone Hcl (Trazodone), 100 MG PO HS Scheduled PRN Nitroglycerin (Nitrostat), 0.4 MG UT PRN PRN for CHEST PAIN Oxycodone/Acetaminophen 5MG/325MG (Percocet 5MG/325MG), 1 TABLET PO Q6H PRN for Pain Review of Systems Constitutional: No fever, No chills Eyes: No worsening of vision, No eye pain ENT: + nasal symptoms, No hearing loss, No sore throat Respiratory: No cough, No sputum, No shortness of breath Cardiovascular: No chest pain, No orthopnea, No claudication, No palpitations Abdomen: + pain, + nausea, + constipation Musculoskeletal: No calf pain Genitourinary - Male: No hematuria, No dysuria Neurologic: No paralysis Psychiatric: No substance abuse Endocrine: No excessive thirst Hematologic / Lymphatic: No abnormal bleeding/bruising Integumentary: No rash, No itch Physical Exam Vital Signs Date Time Temp Pulse Resp B/P (MAP) Pulse Ox O2 Delivery O2 Flow Rate FiO2 05/05/17 23:19 96 20 125/81 93 Room Air 05/05/17 21:44 36.8 112 18 122/71 97 Room Air General Appearance: WD/WN, no apparent distress Head: normocephalic, atraumatic Eyes: PERRL, EOMI ENT: hearing grossly normal Neck: no JVD, trachea midline Respiratory/Chest: normal breath sounds, no respiratory distress, no accessory muscle use Cardiovascular: no edema, no gallop, no JVD, + tachycardia Abdomen/GI: normal bowel sounds, + tenderness (difuse tenderness), + guarding Back: normal inspection Extremities/Musculoskelatal: no calf tenderness Neurologic/Psych: no motor/sensory deficits, alert, normal mood/affect, oriented x 3 Skin: warm/dry, no rash Diagnostics Laboratory Results ABD/PELVIS NO IV OR ORAL CONT CLINICAL HISTORY: 76 years-old Male presenting with pain, decreased BM. TECHNIQUE: Multidetector CT of the abdomen and pelvis was performed without the use of intravenous contrast. IV contrast: None. A dose lowering technique was used consistent with the principles of ALARA (as low as reasonably achievable). COMPARISON: None. CT DOSE (mGy.cm): The estimated cumulative dose is 921.74 mGy.cm. 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 Lung bases: Minimal dependent changes likely atelectasis. Mosaic attenuation could suggest small airways disease. Multichamber enlargement of the heart. Coronary artery and aortic valve calcification. Trace pericardial effusion. No pleural effusion. Liver: Normal morphology. Density consistent with hepatic steatosis. Biliary: Mild dilatation of the extrahepatic bile duct allowing for noncontrast technique. Cholelithiasis with mild gallbladder distention and gallbladder wall thickening. Trace pericholecystic inflammatory change inferiorly. Pancreas: Mild parenchymal atrophy. Spleen: Normal noncontrast appearance. Adrenal glands: Normal noncontrast appearance. Kidneys and ureters: Bilateral nonobstructing renal calculi, the largest on the left measuring 3 mm and on the right measuring 2 mm. No hydronephrosis. Bladder: Incompletely evaluated secondary to underdistention. Pelvic organs: Prostate enlargement likely secondary to benign prostatic hyperplasia. Bowel: Diverticulosis of the sigmoid colon with mild wall thickening suggestive of chronic diverticular disease. Intramural fat deposition is suggested at multiple sites in the large bowel, which is nonspecific but could suggest chronic inflammatory change, extend exposure to steroids, or obesity. Normal appendix. No bowel obstruction. Peritoneal cavity: No free fluid or intraperitoneal gas. Lymph nodes: No gross lymphadenopathy allowing for noncontrast technique. Few prominent subcentimeter lymph nodes in the portacaval region likely reactive. Vasculature: Atherosclerosis of the normal caliber abdominal aorta. Displacement of intimal calcifications towards the lumen (series 3 image 169) suggest chronic dissection. Abdominal wall: Diastasis of the rectus abdominis. Musculoskeletal: Degenerative changes of the spine. Severe osteopenia. IMPRESSION: 1. Findings highly suspicious for acute cholecystitis. 2. Hepatic steatosis. 3. Bilateral nonobstructing nephrolithiasis. 4. 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 5. Osteopenia. The report will be called/faxed according to standard departmental protocol. Electronically signed by: Jose Roberto Gordon M.D. 05/05/2017 8:00 PM Dictated Date/Time: 05/05/2017 7:53 PM Impression Assessment and Plan Acute cholecystitis Present with severe diffuse abdominal pain CT abd/pelvis showed findings highly suspicious for acute cholecystitis Elevated WBC with normal LFTs Was seen by Surgery Dr. Bustillos plan for endoscopic cholecystectomy with possible intraoperative cholangiogram U/S gallbladder pending Received Levaquin and flagyl in the ER Will change abx to zosyn due to QTC prolongation Will keep NPO will need preop cardiac clearance Morphine for pain and IVF CAD Denies any chest pain EKG showed no significant ST changes Cardiac cath done 11/02 showed moderate atherosclerotic coronary artery disease nonobstructive with 25% proximal LAD narrowing and 40% narrowing in the mid LAD. EF 65 % will need preop cardiac clearance Will get an Echo in am aspirin allergies noted on chart Continue metoprolol QTC prolong will repeat EKG in am Avoid meds that cause QTC prolong Hyponatremia Possible related to poor intake On IVF Monitor BMP Dyslipidemia LDL 113 Continue statin Tobacco abuse Counseling on smoking cessation will start on nicotine patch HTN on Lisinopril Will hold AM dose Continue monitor BP BPH Continue flomax/proscar/Detrol Chronic Rhinitis Continue flonase and loratadine Stable DVT px on SCDs ( Anticipate surgery) CODE STATUS FULL CODE Level of Care Med/Surg Resuscitation Status FULL RESUSCITATION VTE Prophylaxis VTE Risk Assessment Done? Y/N: Yes Risk Level: Moderate Given or contraindicated: SCD's
[2017-05-06] MEDS: SODIUM CHLORIDE 0.9% 1000ML 1,000 ML IV SCH ×2 (01:02→11:47)
--- NOTE | 2017-05-06 01:28 | EMERGENCY ROOM VISIT NOTE ---
History First contact with patient: 21:47 Chief Complaint: ABDOMINAL PAIN Stated Complaint: ACUTE CHOLECYSTITIS Nursing Triage Summary: c/o bilateral abd pain x 2 days with nausea. pt was seen here today and left AMA with abx. History of Present Illness The patient is a 76 year old male who presents to the Emergency Room with complaints of abdominal pain for the past 2 days. The patient was seen and evaluated at this emergency department a few hours ago for his symptoms. He had a CT scan consistent with acute cholecystitis. The patient was evaluated by surgery, and recommended admission to the facility. The patient evidently had things that he needed to take care of at home before he could be admitted to the hospital, and signed out AGAINST MEDICAL ADVICE. The patient now returns essentially for admission. He has not had any improvement or worsening of his symptoms over these past few hours. He has not had anything to eat, but does admit having a small amount of water to drink. He is not have new complaints. Please see the ER visit from earlier today for further history of present illness. Review of Systems More than 10 systems were reviewed and otherwise negative with the exception of history of present illness. Past Medical/Surgical History Medical Problems: (1) Acute cholecystitis (2) Hypertension Family History Cancer Heart disease Hypertension Social History Smoking Status: Current Every Day Smoker Alcohol Use: none Marital Status: Housing Status: lives with family Occupation Status: retired Current/Historical Medications Scheduled Ascorbic Acid (Vitamin C), 1 TAB PO DAILY Finasteride (Proscar), 1 TAB PO DAILY Fluticasone Propionate (Nasal) (Flonase Allergy Relief), 2 SPRAYS SIMONA DAILY Lisinopril (Lisinopril), 5 MG PO HS Loratadine (Claritin), 1 TAB PO DAILY Metoprolol Tartrate (Lopressor) (Lopressor), 25 MG PO BID Multivitamin (Multivitamin), 1 TAB PO DAILY Omeprazole (Prilosec), 20 MG PO BID Sertraline (Zoloft), 100 MG PO HS Simvastatin (Zocor), 80 MG PO HS Tamsulosin Hcl (Flomax), 0.4 MG PO HS Tolterodine Tartrate (Detrol LA), 1 CAP PO DAILY Trazodone Hcl (Trazodone), 100 MG PO HS Scheduled PRN Nitroglycerin (Nitrostat), 0.4 MG UT PRN PRN for CHEST PAIN Oxycodone/Acetaminophen 5MG/325MG (Percocet 5MG/325MG), 1 TABLET PO Q6H PRN for Pain Allergies Coded Allergies: Cefaclor (Verified Allergy, Intermediate, "SWELLED-UP", 05/05/17) Aspirin (Verified Allergy, Unknown, BLEEDING ULCER, 05/05/17) States he now takes 81mg daily with no trouble. Physical Exam Vital Signs Date Time Temp Pulse Resp B/P (MAP) Pulse Ox O2 Delivery O2 Flow Rate FiO2 05/05/17 21:44 36.8 112 18 122/71 97 Room Air Physical Exam VITALS: Vitals are noted on the nurse's note and reviewed by myself. Vital signs stable. GENERAL: Well-developed, well-nourished, white male who appears moderately uncomfortable. He is holding his right side abdomen with his right hand. HEART: Regular rate and rhythm without murmurs gallops or rubs. LUNGS: Clear to auscultation bilaterally without wheezes, rales or rhonchi. No retractions or accessory muscle use. ABDOMEN: Positive normal bowel sounds x 4. Soft with right upper quadrant tenderness on palpation. Medical Decision & Procedures Medications Administered Medications (Trade) Dose Ordered Sig/Cristina Route Start Time Stop Time Status Last Admin Dose Admin Sodium Chloride 1,000 ml @ 999 mls/hr Q1H1M ONCE IV 05/05/17 22:00 05/05/17 23:00 DC 05/05/17 22:08 999 MLS/HR Levofloxacin (Levaquin / D5W) 750 mg NOW ONCE IV 05/05/17 22:00 05/05/17 22:02 DC 05/05/17 23:18 750 MG Metronidazole (Flagyl / Nss) 500 mg NOW STAT IV 05/05/17 21:53 05/05/17 22:02 DC 05/05/17 22:08 500 MG Hydromorphone HCl (Dilaudid Inj) 0.5 mg NOW STAT IV 05/05/17 21:53 05/05/17 22:02 DC 05/05/17 22:07 0.5 MG Ondansetron HCl (Zofran Inj) 4 mg NOW STAT IV 05/05/17 21:53 05/05/17 22:02 DC 05/05/17 22:06 4 MG ED Course Physical exam and history were performed. Nursing notes, EMR, and Medication List were personally reviewed. Patient appears to have acute cholecystitis on CT scan performed earlier today. The patient left the department AGAINST MEDICAL ADVICE as he had home responsibilities to attend to. The patient now returns for care. IV access was established. The patient is allergic to cephalosporins and was started on Levaquin and Flagyl here in the department. He was medicated for pain. I discussed the case with the [facility] hospitalist who will admit the patient for further care. The patient had been seen previously by surgeon, Dr. Bustillos , who is also aware of the patient's return and will follow along. Please see the hospitalist dictation for further patient course, plan, and disposition. The chart was completed utilizing [employer] Speech Voice Recognition Software. Grammatical errors, random word insertions, pronoun errors, and incomplete sentences are an occasional consequence of this system due to software limitations, ambient noise, and hardware issues. Any formal questions or concerns about the content, text, or information contained within the body of this dictation should be directly addressed to the provider for clarification. . Medical Decision Differential diagnosis: Etiologies such as appendicitis, diverticulitis, PUD, biliary pathology, UTI, pancreatitis, obstruction, mesenteric ischemia, aortic pathology, infections, inflammatory bowel disease, renal colic, as well as others were entertained. Impression Primary Impression: Acute cholecystitis Departure Information Dispostion Still a Patient Condition FAIR Referrals Salas Gibbons DIsabelO. (PCP) Forms Call Back Authorization, HOME CARE DOCUMENTATION FORM, IMPORTANT VISIT INFORMATION Patient Instructions [facility]
[2017-05-06] MEDS: MoRPHine SULFATE 2 MG/ML CARP IV PRN ×3 (03:21→15:25)
[2017-05-06] MEDS: PIPERACILL/TAZOBAC IV 3.375 GM in DEXTROSE 5% 100ML IV SCH ×3 (05:51→22:41)
--- NOTE | 2017-05-06 06:08 | DIAGNOSTIC IMAGING REPORT ---
GALLBLADDER-ABD LIMITED HISTORY: 76 years-old Male RUQ abd pain. Acute stephon on CT acute right upper quadrant abdominal pain COMPARISON: CT 05/05/2017 TECHNIQUE: Multiple real-time sonographic images of the abdominal right upper quadrant were obtained assessing grayscale appearance and color flow FINDINGS: Pancreas is obscured by bowel gas. There is increased echogenicity of the hepatic parenchyma with the liver measuring up to 19 cm in length. Imaged right kidney is unremarkable without hydronephrosis measuring up to 10 cm in length. Layering stones and sludge are seen within the gallbladder lumen which is mildly distended with the wall measuring 4 mm in width. Trace pericholecystic fluid also noted with positive sonographic Schaefer's sign. Common bile duct is mildly dilated, 1.0 cm. No obstructing stone or mass identified. IMPRESSION: 1. Cholelithiasis and gallbladder sludge with findings suggesting acute cholecystitis. Clinical correlation and surgical consultation recommended. 2. Mild dilation of the common bile duct at 1 cm without obstructing stone or mass identified. The above report was generated using voice recognition software. It may contain grammatical, syntax or spelling errors. Electronically signed by: Cameron Martel M.D. 05/06/2017 6:07 AM Dictated Date/Time: 05/06/2017 6:04 AM
[2017-05-06 06:43] LABS: HEMATOCRIT 40.3 % (42-52); MEAN CORPUSCULAR HEMOGLOBIN 32.4 pg (25-34); MEAN CORPUSCULAR HGB CONC 35.2 g/dl (32-36); PLATELET COUNT 203 K/uL (130-400); RED BLOOD COUNT 4.38 M/uL (4.7-6.1)
[2017-05-06 06:51] LABS: PARTIAL THROMBOPLASTIN RATIO 1.2; PROTHROMBIN TIME (PATIENT) 11.1 SECONDS (9.0-12.0)
[2017-05-06 07:07] LABS: BUN/CREATININE RATIO 14.9 (10-20); CALCIUM 8.3 mg/dl (8.5-10.1); CREATININE 1.03 mg/dl (0.60-1.40); POTASSIUM 3.5 mmol/L (3.5-5.1)
[2017-05-06 07:10] LABS: ALB/GLOB RATIO 0.7 (0.9-2)
[2017-05-06] MEDS ORDERED: PERFLUTREN LIPID MICROSPHERE (DEFINITY) IV ONE (07:17)
[2017-05-06] MEDS ORDERED: MIDAZOLAM HCL 1 MG/ML 2ML VIAL ONE (07:34)
[2017-05-06] MEDS ORDERED: GLYCOPYRROLATE INJ 0.2 MG/ML VIAL ONE (07:34)
[2017-05-06] MEDS ORDERED: LIDOCAINE HCL 2% 2 ML VIAL (20MG/ML) ONE (07:34)
[2017-05-06] MEDS ORDERED: DEXAMETHASONE SOD INJ 4 MG/ML VIAL ONE (07:34)
[2017-05-06] MEDS ORDERED: PROPOFOL IV EMULSION 10 MG/ML 20 ML VIAL IV ONE (07:34)
[2017-05-06] MEDS ORDERED: FENTANYL CITRATE INJ 50 MCG/1 ML 2 ML VIAL ONE (07:34)
[2017-05-06] MEDS ORDERED: ONDANSETRON INJ 2 MG/ML 2 ML VIAL ONE (07:34)
[2017-05-06] MEDS ORDERED: NEOSTIGMINE METHYLSULFATE 5 MG/5 ML SYR ONE (07:34)
[2017-05-06 08:03] VITALS: BP 118/64; PULSE 95; TEMP 37.1; O2SAT 93
--- NOTE | 2017-05-06 08:19 | Surgery Progress Note ---
Surgery Progress Note Date of Service May 06, 2017. Subjective 76 year old male admitted overnight with acute cholecystitis. I saw him in the ED yesterday evening, but he had to go home. Please see my note from yesterday regarding full consultation note. He returned last night, and had a RUQUS that showed gallstones, cholecystitis, and a dilated CBD to 1cm. He was admitted and started on abx. He does have a history of prior [place], and a cardiology consult was placed this morning which is pending. Objective Vital Signs: Date Time Temp Pulse Resp B/P (MAP) Pulse Ox O2 Delivery O2 Flow Rate FiO2 05/06/17 00:45 36.6 105 18 128/72 95 Room Air 05/05/17 23:41 Room Air 05/05/17 23:19 96 20 125/81 93 Room Air 05/05/17 21:44 36.8 112 18 122/71 97 Room Air General Appearance: WD/WN, no apparent distress, + mild distress, + obese Head: normocephalic, atraumatic Neck: supple, no adenopathy, no JVD, trachea midline Respiratory/Chest: chest non-tender, lungs clear, normal breath sounds Cardiovascular: regular rate, rhythm, no edema, no gallop Abdomen: normal bowel sounds, non distended, + tenderness (tender to palpation in RUQ with guarding, + schaefer's sign) Laboratory Results: Results Past 24 Hours Test 05/06/17 06:04 Range/Units White Blood Count 10.70 4.8-10.8 K/uL Red Blood Count 4.38 4.7-6.1 M/uL Hemoglobin 14.2 14.0-18.0 g/dL Hematocrit 40.3 42-52 % Mean Corpuscular Volume 92.0 80-100 fL Mean Corpuscular Hemoglobin 32.4 25-34 pg Mean Corpuscular Hemoglobin Concent 35.2 32-36 g/dl RDW Standard Deviation 46.1 36.4-46.3 fL RDW Coefficient of Variation 13.8 11.5-14.5 % Platelet Count 203 130-400 K/uL Mean Platelet Volume 10.0 7.4-10.4 fL Prothrombin Time 11.1 9.0-12.0 SECONDS Prothromb Time International Ratio 1.0 0.9-1.1 Activated Partial Thromboplast Time 32.2 21.0-31.0 SECONDS Partial Thromboplastin Ratio 1.2 Sodium Level 133 136-145 mmol/L Potassium Level 3.5 3.5-5.1 mmol/L Chloride Level 97 98-107 mmol/L Carbon Dioxide Level 26 21-32 mmol/L Anion Gap 10.0 3-11 mmol/L Blood Urea Nitrogen 15 7-18 mg/dl Creatinine 1.03 0.60-1.40 mg/dl Est Creatinine Clear Calc Drug Dose 67.2 ml/min Estimated GFR () 82.0 Estimated GFR (Non- 70.7 BUN/Creatinine Ratio 14.9 10-20 Random Glucose 118 70-99 mg/dl Calcium Level 8.3 8.5-10.1 mg/dl Total Bilirubin 1.0 0.2-1 mg/dl Aspartate Amino Transf (AST/SGOT) 59 15-37 U/L Alanine Aminotransferase (ALT/SGPT) 52 12-78 U/L Alkaline Phosphatase 87 45-117 U/L Total Protein 7.7 6.4-8.2 gm/dl Albumin 3.3 3.4-5.0 gm/dl Globulin 4.4 2.5-4.0 gm/dl Albumin/Globulin Ratio 0.7 0.9-2 Diagnostic Interpretation: GALLBLADDER-ABD LIMITED HISTORY: 76 years-old Male RUQ abd pain. Acute stephon on CT acute right upper quadrant abdominal pain COMPARISON: CT 05/05/2017 TECHNIQUE: Multiple real-time sonographic images of the abdominal right upper quadrant were obtained assessing grayscale appearance and color flow FINDINGS: Pancreas is obscured by bowel gas. There is increased echogenicity of the hepatic parenchyma with the liver measuring up to 19 cm in length. Imaged right kidney is unremarkable without hydronephrosis measuring up to 10 cm in length. Layering stones and sludge are seen within the gallbladder lumen which is mildly distended with the wall measuring 4 mm in width. Trace pericholecystic fluid also noted with positive sonographic Schaefer's sign. Common bile duct is mildly dilated, 1.0 cm. No obstructing stone or mass identified. IMPRESSION: 1. Cholelithiasis and gallbladder sludge with findings suggesting acute cholecystitis. Clinical correlation and surgical consultation recommended. 2. Mild dilation of the common bile duct at 1 cm without obstructing stone or mass identified. Assessment & Plan 76-year-old male with likely acute calculus cholecystitis. He does have a history of prior myocardial infarction and some intermittent angina, and cardiology consult has been placed. NPO, IV fluids, IV antibiotics We will plan for laparoscopic cholecystectomy with possible intraoperative cholangiogram during his hospital stay, possibly later today or tomorrow pending cardiology recommendations The risks of the procedure were discussed include but are not limited to bleeding, infection, damage, bile duct, retained stone, bile leak, conversion to open, damage to surrounding structures, need for future more extensive surgery, and the risks of anesthesia The diagnosis, details of the surgery, the plan of care were discussed with the patient, all questions were answered, the patient expressed understanding and agreed with the plan of care as stated.
[2017-05-06] MEDS: LORATADINE 10 MG TAB PO SCH (08:57)
[2017-05-06] MEDS: FLUTICASONE PROPIONATE NA SPR 16 GM BTL NAE SCH (08:57)
[2017-05-06] MEDS: METOPROLOL TARTRATE 25 MG TAB PO SCH ×2 (08:58→22:35)
[2017-05-06] MEDS: FINASTERIDE 5 MG TAB PO SCH (08:58)
[2017-05-06] MEDS: PANTOprazole SOD 40 MG TAB PO SCH ×2 (08:58→22:37)
[2017-05-06] MEDS: TOLTERODINE TARTRATE LA 4 MG CAPCR PO SCH (08:59)
--- NOTE | 2017-05-06 09:31 | ECHOCARDIOGRAM REPORT ---
*NOTICE TO RECEIVING [employer] This information is strictly Confidential and protected under [place] law. [place] law prohibits you from making any further disclosure of this information unless further disclosure is expressly permitted by the written consent of the person to whom it pertains or is authorized by law. A general authorization for the release of medical or other information is not sufficient for this purpose. Hospital accepts no responsibility if the information is made available to any other person, INCLUDING THE PATIENT. 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 * Normal LV systolic function, EF 60-65%. * No segmental left ventricular wall motion abnormalities are noted. * Grade III diastolic dysfunction (restrictive physiology). * Aortic valve sclerosis mild, without significant aortic valvular stenosis. * Mild left atrial enlargement. Procedure Details * A complete two-dimensional transthoracic echocardiogram was performed (2D, M-mode, Doppler and color flow Doppler). * A contrast injection of Definity was performed to improve assessment of LV function. * Contrast was injected into an intravenous site in the left arm. * One vial of Definity ultrasound contrast was diluted in normal saline to a total volume of 10 ml. A total of '5' ml of solution was administered during imaging. * Lot # [id number] of Definity utilized for procedure. * Expiration date 06/11. * The attending nurse who injected the contrast agent was CHEL VELAZQUEZ RN. Left Ventricle * The left ventricle is normal in size. * There is mild concentric left ventricular hypertrophy. * The basal septum is thickened and angulated consistent with sigmoid septum. * Ejection Fraction = 60-65%. * Left ventricular systolic function is normal. * No segmental left ventricular wall motion abnormalities are noted. * The left ventricular wall motion is normal. Right Ventricle * The right ventricular cavity size is normal (basal dimension <4.2 cm in right ventricular apical 4-chamber view). * The right ventricular systolic function is normal as assessed by tricuspid annular plane systolic excursion (TAPSE) (normal >1.5 cm). Atria * The left atrium is mildly dilated. * Right atrial size is normal. * No ASD detected; PFO is not assessed. Mitral Valve * The mitral valve is normal in structure and function. Tricuspid Valve * The tricuspid valve is normal in structure and function. Aortic Valve * The aortic valve is trileaflet. * Aortic valve sclerosis mild, without significant aortic valvular stenosis. * No hemodynamically significant valvular aortic stenosis. * There is no significant aortic regurgitation. Pulmonic Valve * The pulmonary valve is not well seen, but the Doppler examination is normal without significant regurgitation or stenosis. Great Vessels * The aortic root is normal size. Pericardium/Pleural * There is no pericardial effusion. Left Ventricular Diastolic Function * Diastolic dysfunction, Grade III (restrictive pattern), consistent with markedly increased left atrial pressure. MMode 2D Measurements and Calculations IVSd 1.8 cm IVSs 2.5 cm LVIDd 4.9 cm LVIDs 3.4 cm LVPWd 1.1 cm LVPWs 2.5 cm IVS/LVPW 1.6 FS 31.1 % EDV(Teich) 114.0 ml ESV(Teich) 47.2 ml EF(Teich) 58.6 % EDV(cubed) 119.3 ml ESV(cubed) 39.1 ml EF(cubed) 67.2 % % IVS thick 40.0 % % LVPW thick 126.6 % LV mass(C)d 289.7 grams LV mass(C)dI 142.4 grams/m\S\2 LV mass(C)s 443.9 grams LV mass(C)sI 218.1 grams/m\S\2 SV(Teich) 66.8 ml SI(Teich) 32.8 ml/m\S\2 SV(cubed) 80.2 ml SI(cubed) 39.4 ml/m\S\2 ACS 0.83 cm asc Aorta Diam 3.2 cm LVOT diam 2.2 cm LVOT area 4.0 cm\S\2 LVAd ap4 34.1 cm\S\2 LVLd ap4 9.1 cm EDV(MOD-sp4) 102.2 ml EDV(sp4-el) 108.2 ml LVAs ap4 19.8 cm\S\2 LVLs ap4 7.7 cm ESV(MOD-sp4) 42.6 ml ESV(sp4-el) 43.2 ml EF(MOD-sp4) 58.3 % EF(sp4-el) 60.1 % LVAd ap2 29.1 cm\S\2 LVLd ap2 9.1 cm EDV(MOD-sp2) 77.6 ml EDV(sp2-el) 78.4 ml LVAs ap2 16.5 cm\S\2 LVLs ap2 7.4 cm ESV(MOD-sp2) 30.7 ml ESV(sp2-el) 31.2 ml EF(MOD-sp2) 60.4 % EF(sp2-el) 60.2 % LVLd %diff 0.02 % EDV(MOD-bp) 89.1 ml LVLs %diff -4.19 % ESV(MOD-bp) 36.7 ml EF(MOD-bp) 58.8 % SV(MOD-sp4) 59.6 ml SI(MOD-sp4) 29.3 ml/m\S\2 SV(MOD-sp2) 46.9 ml SI(MOD-sp2) 23.0 ml/m\S\2 SV(MOD-bp) 52.4 ml SI(MOD-bp) 25.8 ml/m\S\2 SV(sp4-el) 65.0 ml SI(sp4-el) 32.0 ml/m\S\2 SV(sp2-el) 47.2 ml SI(sp2-el) 23.2 ml/m\S\2 Doppler Measurements and Calculations MV E max raul 114.6 cm/sec MV dec time 0.14 sec Ao V2 max 225.9 cm/sec Ao max PG 20.4 mmHg Ao max PG (full) 17.7 mmHg Ao V2 mean 147.0 cm/sec Ao mean PG 10.4 mmHg Ao V2 VTI 40.8 cm CHARMAINE(V,A) 1.4 cm\S\2 CHARMAINE(V,D) 1.4 cm\S\2 AI max raul 328.4 cm/sec AI max PG 43.1 mmHg AI dec slope 212.9 cm/sec\S\2 AI P1/2t 451.8 msec LV V1 max PG 2.7 mmHg LV V1 max 81.9 cm/sec PA V2 max 87.4 cm/sec PA max PG 3.1 mmHg
[2017-05-06 11:54] VITALS: BP 116/72; PULSE 84; TEMP 37.1; O2SAT 94
--- NOTE | 2017-05-06 13:18 | CARDIOLOGY CONSULTATION ---
DATE OF CONSULTATION: 05/06/2017 CONSULTATION REQUESTED BY: Dr. Pacheco. REASON FOR CONSULTATION: Preop risk assessment. HISTORY OF PRESENT ILLNESS: Mr. Hyman is a very pleasant 76-year-old gentleman who presented to [facility] Emergency Department on 05/05/2017 with a complaint of severe abdominal pain. The patient initially left AMA and then came back with continued pain after said he had to give his granddaughter the car. He states his pain has been going on for several days and was not controlled with his p.r.n. oxycodone at home which he used for chronic back pain. He was recently seen by surgery with Dr. Bustillos and was recommended an endoscopic cholecystectomy and possible intraoperative cholangiogram, but it appears that he is now suffering from acute cholecystitis. Cardiac conti, he is without complaint. He denies any chest pain, shortness of breath, palpitations, lightheadedness, dizziness, or syncope. Of note, he has not seen a genetic supervisor since Dr. Cortes in 2010. PAST SURGICAL HISTORY: 1. Cardiac catheterization in 2000 showing moderate nonobstructive coronary artery disease. 2. Knee surgery x2. 3. Colonoscopy. 4. [place] balloon angioplasty to the LAD in 2007. 5. Upper endoscopy. 6. Tonsil and adenoidectomy. 7. Cataract surgery. MEDICAL ILLNESSES: 1. Coronary artery disease. 2. Chronic tobacco abuse. 3. Dyslipidemia. 4. Peptic ulcer disease. 5. History of rheumatic fever as a child. 6. Chronic sinusitis. 7. Spinal stenosis. FAMILY HISTORY: Noncontributory. SOCIAL HISTORY: The patient is a lifelong smoker and continues to smoke a half pack of cigarettes a day. Denies any alcohol or recreational drug use. He is . He lives at home with his granddaughter. He is able to perform all his ADLs. REVIEW OF SYSTEMS: As per HPI, all other review of systems reviewed and negative at this time. ALLERGIES: 1. ASPIRIN, INFLUENZA BLEEDING ULCER. 2. CEFACLOR. MEDICATIONS AN OUTPATIENT: 1. Lisinopril 5 mg daily. 2. Metoprolol tartrate 25 mg b.i.d. 3. Flonase daily. 4. Zoloft daily. 5. Prilosec b.i.d. 6. Claritin daily. 7. Simvastatin 80 mg at bedtime. 8. Flomax daily. 9. Proscar daily. 10. Detrol-LA daily. PHYSICAL EXAMINATION: VITALS: Temperature 37.1, pulse 84, respiratory rate 12, blood pressure 116/72. GENERAL: Awake, alert, oriented x3, in no acute distress. HEENT: Normocephalic, atraumatic. Pupils equal, round, and reactive to light and accommodation. Extraocular muscles intact. Anicteric sclerae. Moist mucous membranes. NECK: No JVD, no bruit. CARDIOVASCULAR: Regular. Positive S4. Normal S1 and S2. No S3. No murmurs or rubs. PULMONARY: Decreased air movement bilaterally with no rales, rhonchi or wheezing. ABDOMEN: Diffusely tender. EXTREMITIES: No clubbing, cyanosis or edema. EXTREMITIES: +2 pedal pulses bilaterally. SKIN: Warm and dry. TEST RESULTS: A 2D echocardiogram was read as normal LV chamber size with mild concentric LVH, sigmoid-appearing septum, normal LV systolic function, EF 60-65%, no segmental left ventricular wall motion abnormalities were noted, grade 3 diastolic dysfunction, restrictive physiology, mild aortic valve sclerosis without stenosis, mild left atrial enlargement. A 12-lead EKG performed in the Emergency Department independently reviewed at this time shows normal sinus rhythm at 94 beats per minute, possible LVH pattern, inverted T waves in the inferior and lateral leads. IMPRESSION: 1. Preoperative risk assessment prior to undergoing cholecystectomy. 2. Coronary artery disease. 3. Restrictive physiology with normal left ventricular systolic function, ejection fraction 60-65%. 4. Tobacco abuse. 5. Hypertension. 6. Dyslipidemia. RECOMMENDATIONS: It was my pleasure to see Mr. Hyman in consultation today. The patient was counseled given his cardiac history but lack of symptoms, at this point, I would place him on a moderate risk for any adverse perioperative cardiovascular event with his risk being approximately less than 5%. He was further counseled that no further cardiac testing or intervention would further lower that risk. He states that he understands, he is accepting of that risk and wishes to proceed with surgery. To medically optimize him, I would continue his metoprolol uninterrupted throughout the yarely and postoperative period. I would also be very cautious with his fluid given the fact he does have a restrictive physiology. Should become volume overload, we can easily diurese him, but I have decreased his fluids from 100 mL per hour to KVO at this time. Thank you very much for allowing me to participate in the care of your patient.
--- NOTE | 2017-05-06 13:24 | Progress Note ---
Internal Med Progress Note Date of Service: May 06, 2017. Provider Documentation: SUBJECTIVE: Seen and examined at bedside States having persistent generalized abd pain, intermittent nausea Denies chest pain, SOB, dizziness No other complaints OBJECTIVE: Vital Signs-as noted below Physical Exam: General Appearance:Moderately built and nourished, no apparent distress Head: normocephalic, Atraumatic Eyes: normal inspection, EOMI, PERRL Neck: supple, Trachea midline Respiratory/Chest: Normal breath sounds, CTA Cardiovascular: S1, S2, No murmur Abdomen/GI:Soft, tender, Bowel sounds diminished Extremities/Musculoskelatal:normal inspection, no edema Neurologic/Psych:AAOX3, grossly no focal neurological deficits Skin: normal color, warm Lab data as noted below. ASSESSMENT & PLAN: Acute cholecystitis CT abd/pelvis: showed findings suggestive of acute cholecystitis normal LFTs Continue IV Fluids, Abx Pain control Appreciate surgery Help Received Levaquin and flagyl in the ER Continue zosyn NPO for now QTC prolongation: Avoid QTC prolonging meds CAD Denies any chest pain EKG: ST-T wave changes S/P Cardiac cath in 11/02 showed moderate atherosclerotic coronary artery disease nonobstructive with 25% proximal LAD narrowing and 40% narrowing in the mid LAD. EF 65 % Cardiology consulted for preop clearance ECHO: no segmental wall motion abnormalities aspirin allergies noted on chart On metoprolol Hyponatremia Possible related to poor intake On IVF Monitor sodium levels Dyslipidemia LDL 113 Continue statin Tobacco abuse Counseling on smoking cessation nicotine patch HTN stable monitor BPH Continue flomax/proscar/Detrol Chronic Rhinitis Continue flonase and loratadine Stable DVT px SCDs as planned for surgery CODE STATUS: Full Code Disposition: Plan to discharge home when stable PROCEDURES: ECHO: Normal LV chamber size with mild concentric LVH, sigmoid appearing septum. * Normal LV systolic function, EF 60-65%. * No segmental left ventricular wall motion abnormalities are noted. * Grade III diastolic dysfunction (restrictive physiology). * Aortic valve sclerosis mild, without significant aortic valvular stenosis. * Mild left atrial enlargement. Vital Signs: Date Time Temp Pulse Resp B/P (MAP) Pulse Ox O2 Delivery O2 Flow Rate FiO2 05/06/17 15:00 36.6 82 16 131/77 (95) 93 Room Air 05/06/17 11:54 37.1 84 18 116/72 (87) 94 Room Air 05/06/17 08:03 37.1 95 18 118/64 (82) 93 Room Air 05/06/17 07:35 Room Air 05/06/17 00:45 36.6 105 18 128/72 95 Room Air 05/05/17 23:41 Room Air 05/05/17 23:19 96 20 125/81 93 Room Air 05/05/17 21:44 36.8 112 18 122/71 97 Room Air Lab Results: Results Past 24 Hours Test 05/06/17 06:04 Range/Units White Blood Count 10.70 4.8-10.8 K/uL Red Blood Count 4.38 4.7-6.1 M/uL Hemoglobin 14.2 14.0-18.0 g/dL Hematocrit 40.3 42-52 % Mean Corpuscular Volume 92.0 80-100 fL Mean Corpuscular Hemoglobin 32.4 25-34 pg Mean Corpuscular Hemoglobin Concent 35.2 32-36 g/dl RDW Standard Deviation 46.1 36.4-46.3 fL RDW Coefficient of Variation 13.8 11.5-14.5 % Platelet Count 203 130-400 K/uL Mean Platelet Volume 10.0 7.4-10.4 fL Prothrombin Time 11.1 9.0-12.0 SECONDS Prothromb Time International Ratio 1.0 0.9-1.1 Activated Partial Thromboplast Time 32.2 21.0-31.0 SECONDS Partial Thromboplastin Ratio 1.2 Sodium Level 133 136-145 mmol/L Potassium Level 3.5 3.5-5.1 mmol/L Chloride Level 97 98-107 mmol/L Carbon Dioxide Level 26 21-32 mmol/L Anion Gap 10.0 3-11 mmol/L Blood Urea Nitrogen 15 7-18 mg/dl Creatinine 1.03 0.60-1.40 mg/dl Est Creatinine Clear Calc Drug Dose 67.2 ml/min Estimated GFR () 82.0 Estimated GFR (Non- 70.7 BUN/Creatinine Ratio 14.9 10-20 Random Glucose 118 70-99 mg/dl Calcium Level 8.3 8.5-10.1 mg/dl Total Bilirubin 1.0 0.2-1 mg/dl Aspartate Amino Transf (AST/SGOT) 59 15-37 U/L Alanine Aminotransferase (ALT/SGPT) 52 12-78 U/L Alkaline Phosphatase 87 45-117 U/L Total Protein 7.7 6.4-8.2 gm/dl Albumin 3.3 3.4-5.0 gm/dl Globulin 4.4 2.5-4.0 gm/dl Albumin/Globulin Ratio 0.7 0.9-2
[2017-05-06] MEDS ORDERED: NURSING VERBAL MED ORDER ONE (14:45)
[2017-05-06 15:00] VITALS: BP 131/77; PULSE 82; TEMP 36.6; O2SAT 93
--- NOTE | 2017-05-06 17:27 | Anesthesiology Progress Note ---
Anesthesia Progress Note Date of Service May 06, 2017. Progress Notes Pt is scheduled for lap choly on 05/07/17. Pt is a 76M h/o CAD, COPD, HTN, GERD , smoker, OA, obesity, h/o rheumatic fever as child. Pt was evaluated by cardiology and is an acceptable risk for surgery. Pt had an TTE on 05/06/17 showing normal LV motion with grade 3 diastolic dysfunction, EF 60-65%. Pt is an acceptable candidate for general anesthesia. Consent was obtained from the patient. All questions and concerns were addressed.
[2017-05-06 22:33] VITALS: BP 156/79; PULSE 87
[2017-05-06] MEDS: TRAZODONE HCL 100 MG TAB PO SCH (22:36)
[2017-05-06] MEDS: SIMVASTATIN 80 MG TAB PO SCH (22:36)
[2017-05-06] MEDS: TAMSULOSIN HCL 0.4 MG CAP PO SCH (22:37)
[2017-05-06] MEDS: LISINOPRIL 5 MG TAB PO SCH (22:37)
[2017-05-06] MEDS: SERTRALINE HCL 100 MG TAB PO SCH (22:37)
[2017-05-06 23:17] VITALS: BP 150/81; PULSE 82; TEMP 36.9; O2SAT 93
[2017-05-07] VITALS (9 sets, daily range): BP systolic 103–138; BP diastolic 66–83; PULSE 70–80; TEMP 36.4–36.6; O2SAT 90–92
[2017-05-07] MEDS: MoRPHine SULFATE 2 MG/ML CARP IV PRN (05:49)
[2017-05-07] MEDS: PIPERACILL/TAZOBAC IV 3.375 GM in DEXTROSE 5% 100ML IV SCH ×3 (05:49→23:17)
[2017-05-07 06:19] LABS: BASO % 0.4 %; BASO ABS # 0.03 K/uL (0-0.2); COMPLETE YES; EOS % 2.8 %; HEMATOCRIT 36.7 % (42-52); IG% 0.3 %; LYMPH % 22.1 %; LYMPH ABS # 1.76 K/uL (1.2-3.4); MEAN CELL VOLUME 91.5 fL (80-100); MEAN CORPUSCULAR HEMOGLOBIN 31.4 pg (25-34); MEAN CORPUSCULAR HGB CONC 34.3 g/dl (32-36); MEAN PLATELET VOLUME 10.1 fL (7.4-10.4); MONO % 11.6 %; NEUT % 62.8 %; PLATELET COUNT 173 K/uL (130-400); RED BLOOD COUNT 4.01 M/uL (4.7-6.1); WHITE BLOOD COUNT 7.96 K/uL (4.8-10.8)
--- NOTE | 2017-05-07 06:51 | Surgery Progress Note ---
Surgery Progress Note Date of Service May 07, 2017. Subjective 76 year old male admitted with acute cholecystitis. Please see my note from first ER visit regarding full consultation note. Patient had cardiology consultation yesterday and echocardiogram which showed some grade 3 diastolic dysfunction. He was deemed to be appropriate risk for surgery. Due to number of add-on cases yesterday, the surgery was deferred to today. This morning he is feeling better, though is continuous still operator in his right upper quadrant. Denies any fevers. Objective Vital Signs: Date Time Temp Pulse Resp B/P (MAP) Pulse Ox O2 Delivery O2 Flow Rate FiO2 05/06/17 23:34 Room Air 05/06/17 23:17 36.9 82 16 150/81 (104) 93 Room Air 05/06/17 22:33 87 156/79 (104) 05/06/17 15:30 Room Air 05/06/17 15:00 36.6 82 16 131/77 (95) 93 Room Air 05/06/17 11:54 37.1 84 18 116/72 (87) 94 Room Air 05/06/17 08:03 37.1 95 18 118/64 (82) 93 Room Air 05/06/17 07:35 Room Air General Appearance: WD/WN, no apparent distress Abdomen: normal bowel sounds, soft, + tenderness (tender to palpation in right upper quadrant, positive Schaefer sign) Laboratory Results: Results Past 24 Hours Test 05/07/17 05:40 Range/Units White Blood Count 7.96 4.8-10.8 K/uL Red Blood Count 4.01 4.7-6.1 M/uL Hemoglobin 12.6 14.0-18.0 g/dL Hematocrit 36.7 42-52 % Mean Corpuscular Volume 91.5 80-100 fL Mean Corpuscular Hemoglobin 31.4 25-34 pg Mean Corpuscular Hemoglobin Concent 34.3 32-36 g/dl Platelet Count 173 130-400 K/uL Mean Platelet Volume 10.1 7.4-10.4 fL Neutrophils (%) (Auto) 62.8 % Lymphocytes (%) (Auto) 22.1 % Monocytes (%) (Auto) 11.6 % Eosinophils (%) (Auto) 2.8 % Basophils (%) (Auto) 0.4 % Neutrophils # (Auto) 5.01 1.4-6.5 K/uL Lymphocytes # (Auto) 1.76 1.2-3.4 K/uL Monocytes # (Auto) 0.92 0.11-0.59 K/uL Eosinophils # (Auto) 0.22 0-0.5 K/uL Basophils # (Auto) 0.03 0-0.2 K/uL RDW Standard Deviation 45.7 36.4-46.3 fL RDW Coefficient of Variation 13.8 11.5-14.5 % Immature Granulocyte % (Auto) 0.3 % Immature Granulocyte # (Auto) 0.02 0.00-0.02 K/uL Assessment & Plan 76-year-old male with likely acute calculus cholecystitis. He has been deemed appropriate risk for surgery from cardiology. NPO, IV fluids, IV antibiotics Plan for laparoscopic cholecystectomy with possible intraoperative cholangiogram today The risks of the procedure were discussed include but are not limited to bleeding, infection, damage, bile duct, retained stone, bile leak, conversion to open, damage to surrounding structures, need for future more extensive surgery, and the risks of anesthesia The diagnosis, details of the surgery, the plan of care were discussed with the patient, all questions were answered, the patient expressed understanding and agreed with the plan of care as stated.
[2017-05-07 06:53] LABS: BUN/CREATININE RATIO 12.2 (10-20); CALCIUM 8.5 mg/dl (8.5-10.1); CREATININE 0.93 mg/dl (0.60-1.40); MAGNESIUM 1.8 mg/dl (1.8-2.4); POTASSIUM 3.4 mmol/L (3.5-5.1)
[2017-05-07] MEDS: FLUTICASONE PROPIONATE NA SPR 16 GM BTL NAE SCH (09:18)
[2017-05-07] MEDS: FINASTERIDE 5 MG TAB PO SCH (09:18)
[2017-05-07] MEDS: PANTOprazole SOD 40 MG TAB PO SCH ×2 (09:19→20:46)
[2017-05-07] MEDS: LORATADINE 10 MG TAB PO SCH (09:19)
[2017-05-07] MEDS: METOPROLOL TARTRATE 25 MG TAB PO SCH ×2 (09:19→20:46)
[2017-05-07] MEDS: TOLTERODINE TARTRATE LA 4 MG CAPCR PO SCH (09:19)
[2017-05-07] MEDS: SODIUM CHLORIDE 0.9% 1000ML 1,000 ML IV SCH ×2 (10:47→16:16)
[2017-05-07] MEDS ORDERED: FENTANYL CITRATE INJ 50 MCG/1 ML 2 ML VIAL ONE ×2 (11:54→13:23)
[2017-05-07] MEDS ORDERED: BUPIVACAINE 0.5 % 5 MG/1 ML MPF 30ML VIAL ONE (12:33)
[2017-05-07] MEDS ORDERED: PROMETHAZINE HCL INJ 12.5 MG in SODIUM CHLORIDE 0.9% 50ML 50 ML IV PRN (14:15)
[2017-05-07] MEDS ORDERED: EpHEDrine SULFATE INJ 50 MG/ML AMP IV PRN (14:15)
[2017-05-07] MEDS ORDERED: ONDANSETRON INJ 2 MG/ML 2 ML VIAL IV PRN (14:15)
[2017-05-07] MEDS ORDERED: FENTANYL CITRATE INJ 50 MCG/1 ML 2 ML VIAL IV PRN (14:15)
[2017-05-07] MEDS ORDERED: ATROPINE SULFATE 0.1 MG/ML 5ML SYR IV PRN (14:15)
[2017-05-07] MEDS ORDERED: NALOXONE HCL 0.4 MG/1 ML VIAL/CARP IV PRN (14:15)
[2017-05-07] MEDS ORDERED: FLUMAZENIL 0.1 MG/1 ML 10 ML VIAL IV PRN (14:15)
[2017-05-07] MEDS ORDERED: LABETALOL HCL IV 5 MG/ML 20ML IV PRN (14:15)
--- NOTE | 2017-05-07 14:24 | DIAGNOSTIC IMAGING REPORT ---
CHOLANGIOGRAM O.R. CLINICAL HISTORY: Upper scopic cholecystectomy COMPARISON STUDY: Gallbladder ultrasound dated 05/05/2017 FLUOROSCOPY TIME: 47 seconds. NUMBER OF FLUOROSCOPIC IMAGES: 12 FINDINGS: The cystic duct was cannulated and contrast was instilled. There are multiple gallbladder filling defects consistent with calculi. There is no evidence of 12 demonstrates a distal common bile duct meniscus. A small nonobstructing calculus cannot be excluded. No additional filling defects are visualized. Contrast was visualized within the duodenum. IMPRESSION: 1. Multiple gallbladder calculi 2. Distal common bile duct meniscus. A small nonobstructing calculus cannot be excluded. Contrast was visualized within the duodenum Electronically signed by: Frank Montoya M.D. 05/07/2017 2:23 PM Dictated Date/Time: 05/07/2017 2:20 PM
[2017-05-07] MEDS ORDERED: ATROPINE SULFATE 0.4 MG/ML 1 ML VIAL ONE (14:43)
[2017-05-07] MEDS ORDERED: IOPAMIDOL 15 ML IV ONE (14:55)
[2017-05-07] MEDS ORDERED: MoRPHine SULFATE 4 MG/ML 1 ML CARP\\VIAL IV PRN (15:00)
[2017-05-07] MEDS ORDERED: EpHEDrine SULFATE 50MG/5ML SYR ONE (15:02)
--- NOTE | 2017-05-07 15:17 | [facility] Post Operative Brief Note ---
Immediate Operative Summary Operative Date May 07, 2017. Pre-Operative Diagnosis Acute Cholecystitis Post-Operative Diagnosis Acute Cholecystitis Procedure(s) Performed Laparoscopic cholecystectomy with intraoperative cholangiogram Surgeon Dr. Bustillos Public Service Administrator Surgeon(s) Jethro Martin PA-C Estimated Blood Loss 20ml Findings very inflamed gallbladder, aspirated, fluid sent for culture. Window of safety obtained, cholangiogram performed and no filling defects. cystic duct divided with 30mm amezcua loaded stapler. cystic artery doubly clipped and divided. gallbladder intrahepatic. Liver bed cauterized, drain left. Specimens A) Gallbladder contents - for culture (sent at 1336) B) Gallbladder Drains 7mm MARVA drain in gallbladder fossa Anesthesia GETA Complication(s) None Disposition Recovery Room / PACU
--- NOTE | 2017-05-07 15:27 | [facility] Operative Report ---
Operative Report Operative Date May 07, 2017. Pre-Operative Diagnosis Acute Cholecystitis Post-Operative Diagnosis acute cholecystitis Procedure(s) Performed Laparoscopic cholecystectomy with intraoperative cholangiogram Surgeon Dr. Bustillos Specialty Transformer Assembler Surgeon(s) Jethro Martin PA-C Estimated Blood Loss 20ml Findings very inflamed gallbladder, aspirated, fluid sent for culture. Window of safety obtained, cholangiogram performed and no filling defects. cystic duct divided with 30mm amezcua loaded stapler. cystic artery doubly clipped and divided. gallbladder intrahepatic. Liver bed cauterized, drain left. Specimens A) Gallbladder contents - for culture (sent at 1336) B) Gallbladder Drains 7mm MARVA drain in gallbladder fossa Anesthesia GETA Complication(s) None Disposition Recovery Room / PACU Indications 76-year-old male presented to the emergency department on Sunday night with acute cholecystitis. He was admitted to the medicine service and placed on antibiotics. He had a preoperative echocardiogram and cardiology risk assessment, and he was deemed an appropriate risk for surgery. Plan for laparoscopic cholecystectomy with intraoperative cholangiogram. The risks of the procedure were discussed, all questions were answered, and the patient agreed to proceed with surgery as planned. Description of Procedure The patient was properly identified, consented, and taken to the operating room where he was placed in the supine position. General endotracheal anesthesia was induced. SCDs and a safety belt were placed. Preoperative antibiotics were administered. The patient's abdomen was prepped and draped in the standard sterile fashion. A surgical timeout was performed and all parties were in agreement that this was the correct patient and procedure to be performed and we continued as planned. A stab incision was made in the left upper quadrant and the Veress needle was inserted. Saline drop test confirmed entry into the peritoneum. The abdomen was insufflated with carbon dioxide, and initially the patient had some bradycardia, and the pneumoperitoneum was released. We then reinflated the abdomen with carbon dioxide which the patient tolerated without incident. An incision was made superior and to the left of the umbilicus overlying the rectus muscle. The abdomen was then entered using the Optiview technique and a 5 mm trocar. The laparoscope was inserted and no damage from initial trocar or Veress needle placement was noted, no gross abnormalities were noted within the 4 quadrants of the abdomen. A 12 mm port was placed in the subxiphoid position and two 5 mm ports were then placed in the right subcostal position. The patient was placed in reverse Trendelenburg position and rotated towards the left. The gallbladder was very inflamed. Multiple omental adhesions were taken down with blunt dissection. We were not able to grasp the gallbladder, so it was aspirated with a large needle. The fluid appeared to be hydropic and was sent for culture. The dome of the gallbladder was then retracted towards the left upper quadrant and the infundibulum was retracted toward the right lower quadrant revealing Calot's triangle. Peritoneal attachments were taken down with electrocautery and blunt dissection. The cystic duct and artery were circumferentially dissected. A window of safety was obtained showing the cystic duct entering the gallbladder with no aberrant structures noted. The Estrada cholangiocatheter was then used to perform an intraoperative cholangiogram which showed no obvious filling defects, and good filling of the duodenum and hepatic radicals with contrast. The cystic duct was dilated and was divided with a 30 mm amezcua loaded endoscopic FLAVIA stapler. The cystic artery was doubly clipped and divided. The gallbladder was then lifted off the gallbladder fossa with electrocautery. The gallbladder was intrahepatic. The liver bed was cauterized for hemostasis. The gallbladder was placed in an Endo Catch bag and removed through the subxiphoid port site. The right upper quadrant was irrigated and hemostasis was found to be good. A 7 mm MARVA drain was then placed in the gallbladder fossa and exited through the right subcostal incision. It was later secured into place with a 3-0 nylon suture. 5 mm trochars were removed under direct visualization and the abdomen was allowed to collapse. The subxiphoid port site fascia was closed with 0 Vicryl suture. The wound was irrigated, and the skin of all ports was closed with 4-0 Monocryl subcuticular sutures. Dermabond was placed over the wounds. The patient was extubated in the operating room and taken to the PACU where he recovered without apparent incident. All sponge, instrument and needle counts were correct at the conclusion of the procedure. The patient tolerated the procedure well. I attest to the content of the Intraoperative Record and any orders documented therein. Any exceptions are noted below.
--- NOTE | 2017-05-07 16:03 | Anesthesiology Progress Note ---
Anesthesia Post Op Note Date & Time May 07, 2017 at 16:03 Vital Signs Pain Intensity: 0 Vital Signs Past 12 Hours Date Time Temp Pulse Resp B/P (MAP) Pulse Ox O2 Delivery O2 Flow Rate FiO2 05/07/17 15:45 36.4 80 16 111/51 93 Nasal Cannula 4 05/07/17 15:40 77 16 126/62 93 Nasal Cannula 4 05/07/17 15:30 79 18 126/78 97 Oxymask 8 05/07/17 15:20 73 16 141/63 97 Oxymask 8 05/07/17 15:13 36.2 77 16 130/56 95 Oxymask 8 05/07/17 09:17 73 128/74 (92) 05/07/17 07:55 90 Room Air 05/07/17 07:52 36.5 70 14 122/70 (87) 90 Room Air 05/07/17 07:30 Room Air Notes Mental Status: alert / awake / arousable, participated in evaluation Pt Amnestic to Procedure: Yes Nausea / Vomiting: adequately controlled Pain: adequately controlled Airway Patency, RR, SpO2: stable & adequate BP & HR: stable & adequate Hydration State: stable & adequate Anesthetic Complications: no major complications apparent
--- NOTE | 2017-05-07 16:47 | Progress Note ---
Internal Med Progress Note Date of Service: May 07, 2017. Provider Documentation: SUBJECTIVE: Seen and examined at bedside, just returned from OR Currently very drowsy from sedation States having pain at surgical site Denies SOB Family at bedside OBJECTIVE: Vital Signs-as noted below Physical Exam: General Appearance:Moderately built and nourished, no apparent distress Head: normocephalic, Atraumatic Eyes: normal inspection, EOMI, PERRL Neck: supple, Trachea midline Respiratory/Chest: Normal breath sounds, CTA Cardiovascular: S1, S2, No murmur Abdomen/GI:Soft, tender, Bowel sounds heard, + drain, Surgical site in bandage Extremities/Musculoskelatal:normal inspection, no edema Neurologic/Psych:AAOX3, grossly no focal neurological deficits Skin: normal color, warm Lab data as noted below. ASSESSMENT & PLAN: Acute cholecystitis CT abd/pelvis: showed findings suggestive of acute cholecystitis S/P Laparoscopic cholecystectomy with intraoperative cholangiogram pod #0 normal LFTs Continue IV Fluids, Abx Pain control Appreciate surgery Help Continue zosyn Advance diet as tolerated QTC prolongation: Avoid QTC prolonging meds CAD Denies any chest pain EKG: ST-T wave changes S/P Cardiac cath in 11/02 showed moderate atherosclerotic coronary artery disease nonobstructive with 25% proximal LAD narrowing and 40% narrowing in the mid LAD. EF 65 % Cardiology consulted for preop clearance ECHO: no segmental wall motion abnormalities aspirin allergies noted on chart On metoprolol Hyponatremia Possible related to poor intake On IVF Monitor sodium levels Resolved Dyslipidemia LDL 113 Continue statin Tobacco abuse Counseling on smoking cessation nicotine patch HTN stable monitor BPH Continue flomax/proscar/Detrol Chronic Rhinitis Continue flonase and loratadine Stable DVT px SCDs for now CODE STATUS: Full Code Disposition: Plan to discharge home when stable PROCEDURES: ECHO: Normal LV chamber size with mild concentric LVH, sigmoid appearing septum. * Normal LV systolic function, EF 60-65%. * No segmental left ventricular wall motion abnormalities are noted. * Grade III diastolic dysfunction (restrictive physiology). * Aortic valve sclerosis mild, without significant aortic valvular stenosis. * Mild left atrial enlargement. Vital Signs: Date Time Temp Pulse Resp B/P (MAP) Pulse Ox O2 Delivery O2 Flow Rate FiO2 05/07/17 16:00 Nasal Cannula 4.0 05/07/17 16:00 Nasal Cannula 4.0 05/07/17 15:45 36.4 80 16 111/51 93 Nasal Cannula 4 05/07/17 15:40 77 16 126/62 93 Nasal Cannula 4 05/07/17 15:30 79 18 126/78 97 Oxymask 8 05/07/17 15:20 73 16 141/63 97 Oxymask 8 05/07/17 15:13 36.2 77 16 130/56 95 Oxymask 8 05/07/17 09:17 73 128/74 (92) 05/07/17 07:55 90 Room Air 05/07/17 07:52 36.5 70 14 122/70 (87) 90 Room Air 05/07/17 07:30 Room Air 05/06/17 23:34 Room Air 05/06/17 23:17 36.9 82 16 150/81 (104) 93 Room Air 05/06/17 22:33 87 156/79 (104) Lab Results: Results Past 24 Hours Test 05/07/17 05:40 Range/Units White Blood Count 7.96 4.8-10.8 K/uL Red Blood Count 4.01 4.7-6.1 M/uL Hemoglobin 12.6 14.0-18.0 g/dL Hematocrit 36.7 42-52 % Mean Corpuscular Volume 91.5 80-100 fL Mean Corpuscular Hemoglobin 31.4 25-34 pg Mean Corpuscular Hemoglobin Concent 34.3 32-36 g/dl Platelet Count 173 130-400 K/uL Mean Platelet Volume 10.1 7.4-10.4 fL Neutrophils (%) (Auto) 62.8 % Lymphocytes (%) (Auto) 22.1 % Monocytes (%) (Auto) 11.6 % Eosinophils (%) (Auto) 2.8 % Basophils (%) (Auto) 0.4 % Neutrophils # (Auto) 5.01 1.4-6.5 K/uL Lymphocytes # (Auto) 1.76 1.2-3.4 K/uL Monocytes # (Auto) 0.92 0.11-0.59 K/uL Eosinophils # (Auto) 0.22 0-0.5 K/uL Basophils # (Auto) 0.03 0-0.2 K/uL RDW Standard Deviation 45.7 36.4-46.3 fL RDW Coefficient of Variation 13.8 11.5-14.5 % Immature Granulocyte % (Auto) 0.3 % Immature Granulocyte # (Auto) 0.02 0.00-0.02 K/uL Sodium Level 139 136-145 mmol/L Potassium Level 3.4 3.5-5.1 mmol/L Chloride Level 103 98-107 mmol/L Carbon Dioxide Level 25 21-32 mmol/L Anion Gap 11.0 3-11 mmol/L Blood Urea Nitrogen 11 7-18 mg/dl Creatinine 0.93 0.60-1.40 mg/dl Est Creatinine Clear Calc Drug Dose 74.4 ml/min Estimated GFR () 92.7 Estimated GFR (Non- 80.0 BUN/Creatinine Ratio 12.2 10-20 Random Glucose 107 70-99 mg/dl Calcium Level 8.5 8.5-10.1 mg/dl Magnesium Level 1.8 1.8-2.4 mg/dl Microbiology Results 05/07/17 Gram Stain, Received Pending 05/07/17 Bacterial Culture, Received Pending
[2017-05-07] MEDS: OXYCODONE/ACETAMINOPHEN 5-325 TAB PO PRN (20:46)
[2017-05-07] MEDS: SIMVASTATIN 80 MG TAB PO SCH (20:46)
[2017-05-07] MEDS: TRAZODONE HCL 100 MG TAB PO SCH (20:46)
[2017-05-07] MEDS: LISINOPRIL 5 MG TAB PO SCH (20:47)
[2017-05-07] MEDS: SERTRALINE HCL 100 MG TAB PO SCH (20:47)
[2017-05-07] MEDS: TAMSULOSIN HCL 0.4 MG CAP PO SCH (20:47)
[2017-05-08] VITALS (8 sets, daily range): BP systolic 102–143; BP diastolic 59–76; PULSE 80–89; TEMP 36.8–37.5; O2SAT 91–94
[2017-05-08] MEDS: OXYCODONE/ACETAMINOPHEN 5-325 TAB PO PRN ×4 (01:47→19:12)
[2017-05-08] MEDS: MoRPHine SULFATE 2 MG/ML CARP IV PRN ×3 (03:40→22:00)
[2017-05-08] MEDS: SODIUM CHLORIDE 0.9% 1000ML 1,000 ML IV SCH ×2 (04:25→17:06)
[2017-05-08 05:38] LABS: BASO % 0.2 %; BASO ABS # 0.02 K/uL (0-0.2); COMPLETE YES; EOS % 0.9 %; HEMATOCRIT 35.9 % (42-52); IG% 0.3 %; LYMPH % 8.9 %; LYMPH ABS # 0.93 K/uL (1.2-3.4); MEAN CELL VOLUME 93.5 fL (80-100); MEAN CORPUSCULAR HEMOGLOBIN 31.5 pg (25-34); MEAN CORPUSCULAR HGB CONC 33.7 g/dl (32-36); MEAN PLATELET VOLUME 9.5 fL (7.4-10.4); MONO % 8.8 %; NEUT % 80.9 %; PLATELET COUNT 171 K/uL (130-400); RED BLOOD COUNT 3.84 M/uL (4.7-6.1)
[2017-05-08] MEDS: PIPERACILL/TAZOBAC IV 3.375 GM in DEXTROSE 5% 100ML IV SCH ×3 (05:42→21:53)
[2017-05-08 06:04] LABS: BUN/CREATININE RATIO 15.1 (10-20); CREATININE 0.94 mg/dl (0.60-1.40); MAGNESIUM 1.8 mg/dl (1.8-2.4); POTASSIUM 3.5 mmol/L (3.5-5.1)
--- NOTE | 2017-05-08 08:07 | Anesthesiology Progress Note ---
Anesthesia Post Op Note Date & Time May 08, 2017 at 08:07 Vital Signs Pain Intensity: 10.0 Vital Signs Past 12 Hours Date Time Temp Pulse Resp B/P (MAP) Pulse Ox O2 Delivery O2 Flow Rate FiO2 05/08/17 07:03 37.2 82 16 102/64 (77) 92 Room Air 05/08/17 03:28 37.0 80 17 117/73 (88) 91 Room Air 05/07/17 23:15 Room Air 05/07/17 23:00 36.6 79 18 103/66 (78) 92 Room Air Notes Mental Status: alert / awake / arousable, participated in evaluation Pt Amnestic to Procedure: Yes Nausea / Vomiting: adequately controlled Pain: adequately controlled Airway Patency, RR, SpO2: stable & adequate BP & HR: stable & adequate Hydration State: stable & adequate Anesthetic Complications: no major complications apparent
[2017-05-08] MEDS: LORATADINE 10 MG TAB PO SCH (08:59)
[2017-05-08] MEDS: TOLTERODINE TARTRATE LA 4 MG CAPCR PO SCH (08:59)
[2017-05-08] MEDS: FINASTERIDE 5 MG TAB PO SCH (08:59)
[2017-05-08] MEDS: FLUTICASONE PROPIONATE NA SPR 16 GM BTL NAE SCH (08:59)
[2017-05-08] MEDS: PANTOprazole SOD 40 MG TAB PO SCH ×2 (09:00→21:52)
[2017-05-08] MEDS: METOPROLOL TARTRATE 25 MG TAB PO SCH ×2 (09:03→21:51)
--- NOTE | 2017-05-08 10:26 | Progress Note ---
Internal Med Progress Note Date of Service: May 08, 2017. Provider Documentation: SUBJECTIVE: Seen and examined at bedside States having pain at surgical site No BM or passing gas yet Denies chest pain, SOB, nausea, dizziness No other complaints OBJECTIVE: Vital Signs-as noted below Physical Exam: General Appearance:Moderately built and nourished, no apparent distress Head: normocephalic, Atraumatic Eyes: normal inspection, EOMI, PERRL Neck: supple, Trachea midline Respiratory/Chest: Normal breath sounds, CTA Cardiovascular: S1, S2, No murmur Abdomen/GI:Soft, tender, Bowel sounds heard, + drain, Surgical site in bandage Extremities/Musculoskelatal:normal inspection, no edema Neurologic/Psych:AAOX3, grossly no focal neurological deficits Skin: normal color, warm Lab data as noted below. ASSESSMENT & PLAN: Acute cholecystitis CT abd/pelvis: showed findings suggestive of acute cholecystitis S/P Laparoscopic cholecystectomy with intraoperative cholangiogram pod #1 normal LFTs Continue IV Fluids, Abx Pain control Appreciate surgery Help Continue zosyn for now Advance diet as tolerated FU cultures Start bowel regimen QTC prolongation: Avoid QTC prolonging meds CAD Denies any chest pain EKG: ST-T wave changes S/P Cardiac cath in 11/02 showed moderate atherosclerotic coronary artery disease nonobstructive with 25% proximal LAD narrowing and 40% narrowing in the mid LAD. EF 65 % Cardiology consulted for preop clearance ECHO: no segmental wall motion abnormalities aspirin allergies noted on chart On metoprolol Hyponatremia Possible related to poor intake On IVF Monitor sodium levels Resolved Dyslipidemia LDL 113 Continue statin Tobacco abuse Counseling on smoking cessation nicotine patch HTN stable monitor BPH Continue flomax/proscar/Detrol Chronic Rhinitis Continue flonase and loratadine Stable DVT px SCDs for now. Encourage ambulation CODE STATUS: Full Code Disposition: Plan to discharge home when stable PROCEDURES: ECHO: Normal LV chamber size with mild concentric LVH, sigmoid appearing septum. * Normal LV systolic function, EF 60-65%. * No segmental left ventricular wall motion abnormalities are noted. * Grade III diastolic dysfunction (restrictive physiology). * Aortic valve sclerosis mild, without significant aortic valvular stenosis. * Mild left atrial enlargement. Vital Signs: Date Time Temp Pulse Resp B/P (MAP) Pulse Ox O2 Delivery O2 Flow Rate FiO2 05/08/17 09:01 86 106/59 (75) 05/08/17 07:15 Room Air 05/08/17 07:03 37.2 82 16 102/64 (77) 92 Room Air 05/08/17 03:28 37.0 80 17 117/73 (88) 91 Room Air 05/07/17 23:15 Room Air 05/07/17 23:00 36.6 79 18 103/66 (78) 92 Room Air 05/07/17 19:15 36.6 18 114/71 (85) 92 Room Air 05/07/17 18:00 36.4 80 16 137/83 (101) 92 Room Air 05/07/17 17:00 36.5 80 16 127/78 (94) 90 Room Air 05/07/17 16:30 36.5 79 16 138/78 (98) 91 Room Air 05/07/17 16:00 Nasal Cannula 4.0 05/07/17 16:00 36.4 79 16 111/69 (83) 91 Nasal Cannula 4.0 05/07/17 16:00 Nasal Cannula 4.0 05/07/17 15:45 36.4 80 16 111/51 93 Nasal Cannula 4 05/07/17 15:40 77 16 126/62 93 Nasal Cannula 4 05/07/17 15:30 79 18 126/78 97 Oxymask 8 05/07/17 15:20 73 16 141/63 97 Oxymask 8 05/07/17 15:13 36.2 77 16 130/56 95 Oxymask 8 Lab Results: Results Past 24 Hours Test 05/08/17 05:26 Range/Units White Blood Count 10.40 4.8-10.8 K/uL Red Blood Count 3.84 4.7-6.1 M/uL Hemoglobin 12.1 14.0-18.0 g/dL Hematocrit 35.9 42-52 % Mean Corpuscular Volume 93.5 80-100 fL Mean Corpuscular Hemoglobin 31.5 25-34 pg Mean Corpuscular Hemoglobin Concent 33.7 32-36 g/dl Platelet Count 171 130-400 K/uL Mean Platelet Volume 9.5 7.4-10.4 fL Neutrophils (%) (Auto) 80.9 % Lymphocytes (%) (Auto) 8.9 % Monocytes (%) (Auto) 8.8 % Eosinophils (%) (Auto) 0.9 % Basophils (%) (Auto) 0.2 % Neutrophils # (Auto) 8.42 1.4-6.5 K/uL Lymphocytes # (Auto) 0.93 1.2-3.4 K/uL Monocytes # (Auto) 0.91 0.11-0.59 K/uL Eosinophils # (Auto) 0.09 0-0.5 K/uL Basophils # (Auto) 0.02 0-0.2 K/uL RDW Standard Deviation 48.1 36.4-46.3 fL RDW Coefficient of Variation 14.0 11.5-14.5 % Immature Granulocyte % (Auto) 0.3 % Immature Granulocyte # (Auto) 0.03 0.00-0.02 K/uL Sodium Level 138 136-145 mmol/L Potassium Level 3.5 3.5-5.1 mmol/L Chloride Level 104 98-107 mmol/L Carbon Dioxide Level 24 21-32 mmol/L Anion Gap 10.0 3-11 mmol/L Blood Urea Nitrogen 14 7-18 mg/dl Creatinine 0.94 0.60-1.40 mg/dl Est Creatinine Clear Calc Drug Dose 73.6 ml/min Estimated GFR () 91.6 Estimated GFR (Non- 79.0 BUN/Creatinine Ratio 15.1 10-20 Random Glucose 125 70-99 mg/dl Calcium Level 8.0 8.5-10.1 mg/dl Magnesium Level 1.8 1.8-2.4 mg/dl Microbiology Results 05/07/17 Gram Stain - Final, Resulted 05/07/17 Bacterial Culture - Preliminary, Resulted Sally Albicans
--- NOTE | 2017-05-08 10:52 | Surgery Progress Note ---
Surgery Progress Note Date of Service May 08, 2017. Subjective POD#1 lap stephon w/ IOC for cholecystitis, drain left. Overall doing well, very sore, tolerating clears. Objective Vital Signs: Date Time Temp Pulse Resp B/P (MAP) Pulse Ox O2 Delivery O2 Flow Rate FiO2 05/08/17 09:01 86 106/59 (75) 05/08/17 07:15 Room Air 05/08/17 07:03 37.2 82 16 102/64 (77) 92 Room Air 05/08/17 03:28 37.0 80 17 117/73 (88) 91 Room Air 05/07/17 23:15 Room Air 05/07/17 23:00 36.6 79 18 103/66 (78) 92 Room Air 05/07/17 19:15 36.6 18 114/71 (85) 92 Room Air 05/07/17 18:00 36.4 80 16 137/83 (101) 92 Room Air 05/07/17 17:00 36.5 80 16 127/78 (94) 90 Room Air 05/07/17 16:30 36.5 79 16 138/78 (98) 91 Room Air 05/07/17 16:00 Nasal Cannula 4.0 05/07/17 16:00 36.4 79 16 111/69 (83) 91 Nasal Cannula 4.0 05/07/17 16:00 Nasal Cannula 4.0 05/07/17 15:45 36.4 80 16 111/51 93 Nasal Cannula 4 05/07/17 15:40 77 16 126/62 93 Nasal Cannula 4 05/07/17 15:30 79 18 126/78 97 Oxymask 8 05/07/17 15:20 73 16 141/63 97 Oxymask 8 05/07/17 15:13 36.2 77 16 130/56 95 Oxymask 8 Physical Exam: MARVA drainage (60 (70cc) ss fluid) General Appearance: WD/WN, no apparent distress Abdomen: normal bowel sounds, non distended, soft, + tenderness (ttp in RUQ, no guarding) Incision(s): clean, dry, intact, no erythema Laboratory Results: Results Past 24 Hours Test 05/08/17 05:26 Range/Units White Blood Count 10.40 4.8-10.8 K/uL Red Blood Count 3.84 4.7-6.1 M/uL Hemoglobin 12.1 14.0-18.0 g/dL Hematocrit 35.9 42-52 % Mean Corpuscular Volume 93.5 80-100 fL Mean Corpuscular Hemoglobin 31.5 25-34 pg Mean Corpuscular Hemoglobin Concent 33.7 32-36 g/dl Platelet Count 171 130-400 K/uL Mean Platelet Volume 9.5 7.4-10.4 fL Neutrophils (%) (Auto) 80.9 % Lymphocytes (%) (Auto) 8.9 % Monocytes (%) (Auto) 8.8 % Eosinophils (%) (Auto) 0.9 % Basophils (%) (Auto) 0.2 % Neutrophils # (Auto) 8.42 1.4-6.5 K/uL Lymphocytes # (Auto) 0.93 1.2-3.4 K/uL Monocytes # (Auto) 0.91 0.11-0.59 K/uL Eosinophils # (Auto) 0.09 0-0.5 K/uL Basophils # (Auto) 0.02 0-0.2 K/uL RDW Standard Deviation 48.1 36.4-46.3 fL RDW Coefficient of Variation 14.0 11.5-14.5 % Immature Granulocyte % (Auto) 0.3 % Immature Granulocyte # (Auto) 0.03 0.00-0.02 K/uL Sodium Level 138 136-145 mmol/L Potassium Level 3.5 3.5-5.1 mmol/L Chloride Level 104 98-107 mmol/L Carbon Dioxide Level 24 21-32 mmol/L Anion Gap 10.0 3-11 mmol/L Blood Urea Nitrogen 14 7-18 mg/dl Creatinine 0.94 0.60-1.40 mg/dl Est Creatinine Clear Calc Drug Dose 73.6 ml/min Estimated GFR () 91.6 Estimated GFR (Non- 79.0 BUN/Creatinine Ratio 15.1 10-20 Random Glucose 125 70-99 mg/dl Calcium Level 8.0 8.5-10.1 mg/dl Magnesium Level 1.8 1.8-2.4 mg/dl Microbiology Results 05/07/17 Gram Stain - Final, Resulted 05/07/17 Bacterial Culture - Preliminary, Resulted Sally Albicans Assessment & Plan 76-year-old male POD#1 lap stephon with IOC and drain placement for acute cholecystitis, doing well advance diet as tolerated h/l iv when tolerating fluids stop abx cont drain possible discharge tomorrow
[2017-05-08] MEDS: DOCUSATE SODIUM 100 MG CAP PO SCH (21:51)
[2017-05-08] MEDS: TRAZODONE HCL 100 MG TAB PO SCH (21:52)
[2017-05-08] MEDS: SIMVASTATIN 80 MG TAB PO SCH (21:52)
[2017-05-08] MEDS: TAMSULOSIN HCL 0.4 MG CAP PO SCH (21:52)
[2017-05-08] MEDS: SERTRALINE HCL 100 MG TAB PO SCH (21:53)
[2017-05-08] MEDS: LISINOPRIL 5 MG TAB PO SCH (21:53)
[2017-05-09] MEDS: OXYCODONE/ACETAMINOPHEN 5-325 TAB PO PRN ×2 (00:15→07:21)
[2017-05-09] MEDS: PIPERACILL/TAZOBAC IV 3.375 GM in DEXTROSE 5% 100ML IV SCH (05:42)
[2017-05-09] MEDS: SODIUM CHLORIDE 0.9% 1000ML 1,000 ML IV SCH (06:32)
[2017-05-09 07:09] VITALS: BP 128/74; PULSE 81; TEMP 37.1; O2SAT 93
[2017-05-09] MEDS: LORATADINE 10 MG TAB PO SCH (08:43)
[2017-05-09] MEDS: TOLTERODINE TARTRATE LA 4 MG CAPCR PO SCH (08:43)
[2017-05-09] MEDS: DOCUSATE SODIUM 100 MG CAP PO SCH (08:43)
[2017-05-09] MEDS: FLUTICASONE PROPIONATE NA SPR 16 GM BTL NAE SCH (08:43)
[2017-05-09] MEDS: METOPROLOL TARTRATE 25 MG TAB PO SCH (08:43)
[2017-05-09] MEDS: FINASTERIDE 5 MG TAB PO SCH (08:43)
[2017-05-09] MEDS: PANTOprazole SOD 40 MG TAB PO SCH (08:43)
[2017-05-09 08:58] LABS: BASO % 0.5 %; BASO ABS # 0.05 K/uL (0-0.2); COMPLETE YES; EOS % 3.2 %; HEMATOCRIT 33.4 % (42-52); IG% 0.2 %; LYMPH % 11.5 %; LYMPH ABS # 1.16 K/uL (1.2-3.4); MEAN CELL VOLUME 92.3 fL (80-100); MEAN CORPUSCULAR HEMOGLOBIN 31.2 pg (25-34); MEAN CORPUSCULAR HGB CONC 33.8 g/dl (32-36); MEAN PLATELET VOLUME 9.9 fL (7.4-10.4); MONO % 12.3 %; NEUT % 72.3 %; PLATELET COUNT 206 K/uL (130-400); RED BLOOD COUNT 3.62 M/uL (4.7-6.1); WHITE BLOOD COUNT 10.07 K/uL (4.8-10.8)
[2017-05-09 09:03] LABS: BUN/CREATININE RATIO 10.7 (10-20); CALCIUM 8.2 mg/dl (8.5-10.1); MAGNESIUM 1.7 mg/dl (1.8-2.4); POTASSIUM 3.7 mmol/L (3.5-5.1)
--- NOTE | 2017-05-09 09:17 | Surgery Progress Note ---
Surgery Progress Note Date of Service May 09, 2017. Subjective Post OP Day: 2 + feeling well, + complaints (Abdominal tenderness around surgical incision sites), + pain controlled, + diet (Tolerating low fiber diet), No bowel movement , No flatus, No nausea, No vomiting POD # 2 s/p laparoscopic cholecystectomy with IOC, MARVA drain left in place. Doing well, still sore. Denies any pain associated with meals. Objective Vital Signs: Date Time Temp Pulse Resp B/P (MAP) Pulse Ox O2 Delivery O2 Flow Rate FiO2 05/09/17 07:20 Room Air 05/09/17 07:09 37.1 81 16 128/74 (92) 93 Room Air 05/09/17 00:05 Room Air 05/08/17 22:49 37.4 84 17 133/76 (95) 93 Room Air 05/08/17 22:17 83 128/72 (90) 05/08/17 19:15 36.8 87 18 143/70 (94) 94 Room Air 05/08/17 15:30 Room Air 05/08/17 15:24 37.5 81 18 112/66 (81) 94 Room Air 05/08/17 12:00 37.3 89 16 102/60 (74) 94 Room Air 05/08/17 09:01 86 106/59 (75) Physical Exam: MARVA drainage (20 ml this AM. 110 ml 05/08/17.) General Appearance: WD/WN, no apparent distress Head: normocephalic, atraumatic Neck: supple, trachea midline Abdomen: no organomegaly, + distended (Mildly), + guarding, + tenderness ( Generalized abdominal TTP) Incision(s): clean, dry, intact, no erythema, no drainage Laboratory Results: Results Past 24 Hours Test 05/08/17 16:59 05/09/17 07:51 Range/Units Bedside Glucose 146 70-99 mg/dl Assessment & Plan POD # 2 s/p laparoscopic cholecystectomy with IOC, MARVA drain in place Doing well, pump tender over abdomen. Reports not quite as bad - Pain Controlled on PO Percocet. Tolerating Low fiber diet, no nausea, vomiting. No BM yet, continue stool softener. MARVA drainage minimal - 20 mL - Will remove today. Okay to D/C from surgical standpoint. Recommend d/c with PO Percocet for pain and PO Colace F/U in 2 weeks in [facility]
[2017-05-09 10:54] VITALS: BP 117/67
--- NOTE | 2017-05-09 11:48 | Progress Note ---
Medicine Progress Note Date & Time of Visit: May 09, 2017 at 11:41. Subjective seen resting in bedside chair in good spirits has some mild abdominal pain on the surgical site after ambulating/tying his shoes pain has been improving as per patient tolerating diet well had BM today no nausea, fever/chills weakness denies chest pain, palpitations, dyspnea, dizziness no other symptoms states he is ready and would like to be discharged today Objective Last 8 Hrs Date Time Temp Pulse Resp B/P (MAP) Pulse Ox O2 Delivery O2 Flow Rate FiO2 05/09/17 10:54 117/67 (84) 05/09/17 07:20 Room Air 05/09/17 07:09 37.1 81 16 128/74 (92) 93 Room Air Physical Exam: General- oriented x 3, not in distress, speaks in sentences with no effort Head- atraumatic Eyes- EOMI, anicteric ENT- oropharynx clear Neck- supple, no JVD, no adenopathy, no thyromegaly Lungs- clear breath sounds bilaterally, no rales/wheezes Heart- regular rhythm; no murmur, normal rate Abdomen- normal bowel sounds, non distended, soft, mild tenderness lap stephon scars: no discharge, bleeding Extremities- no pretibial edema, no calf tenderness; peripheral pulses intact Neuro- alert, oriented x 3;no gross focal deficits Skin- warm & dry Laboratory Results: Last 24 Hours Test 05/08/17 16:59 05/09/17 07:51 Bedside Glucose 146 mg/dl White Blood Count 10.07 K/uL Red Blood Count 3.62 M/uL Hemoglobin 11.3 g/dL Hematocrit 33.4 % Mean Corpuscular Volume 92.3 fL Mean Corpuscular Hemoglobin 31.2 pg Mean Corpuscular Hemoglobin Concent 33.8 g/dl Platelet Count 206 K/uL Mean Platelet Volume 9.9 fL Neutrophils (%) (Auto) 72.3 % Lymphocytes (%) (Auto) 11.5 % Monocytes (%) (Auto) 12.3 % Eosinophils (%) (Auto) 3.2 % Basophils (%) (Auto) 0.5 % Neutrophils # (Auto) 7.28 K/uL Lymphocytes # (Auto) 1.16 K/uL Monocytes # (Auto) 1.24 K/uL Eosinophils # (Auto) 0.32 K/uL Basophils # (Auto) 0.05 K/uL RDW Standard Deviation 46.4 fL RDW Coefficient of Variation 13.7 % Immature Granulocyte % (Auto) 0.2 % Immature Granulocyte # (Auto) 0.02 K/uL Sodium Level 136 mmol/L Potassium Level 3.7 mmol/L Chloride Level 102 mmol/L Carbon Dioxide Level 25 mmol/L Anion Gap 9.0 mmol/L Blood Urea Nitrogen 11 mg/dl Creatinine 1.00 mg/dl Est Creatinine Clear Calc Drug Dose 69.2 ml/min Estimated GFR () 85.0 Estimated GFR (Non- 73.3 BUN/Creatinine Ratio 10.7 Random Glucose 146 mg/dl Calcium Level 8.2 mg/dl Magnesium Level 1.7 mg/dl Chemistry Specimen Hemolysis Assessment & Plan Acute cholecystitis CT abd/pelvis: showed findings suggestive of acute cholecystitis normal LFTs 05/07/17: S/P Laparoscopic cholecystectomy with intraoperative cholangiogram by Dr. Bustillos Pathology: Gangrenous Cholecystitis, no Cholelithiasis Culture: rare Sally placed on Zosyn - cleared for d/c by General Surgery low fiber diet PRN Percocet Colace BID - ff up with Gen Surg Dr. Bustillos in 2 weeks QTC prolongation: QT corrected 510 x 2 days monitor QT interval closely while on Sertraline and Trazodone CAD Cardiology consulted for preop clearance ECHO: no segmental wall motion abnormalities aspirin allergies noted on chart continue metoprolol Hyponatremia Possible related to poor intake resolved Dyslipidemia LDL 113 Continue statin Tobacco abuse Counseling on smoking cessation nicotine patch HTN stable monitor BPH Continue flomax/proscar/Detrol Chronic Rhinitis Continue flonase and loratadine Stable Disposition: d/c home ff up with PCP in 1 week ff up with Gen Surg Dr. Bustillos in 2 weeks Current Inpatient Medications: Current Inpatient Medications Medications (Trade) Dose Ordered Sig/Cristina Route Start Time Stop Time Status Last Admin Dose Admin Acetaminophen (Tylenol Tab) 650 mg Q4H PRN PO 05/05/17 23:00 06/04/17 22:59 Ondansetron HCl (Zofran Inj) 4 mg Q6H PRN IV 05/05/17 23:00 06/04/17 22:59 Morphine Sulfate (MoRPHine SULFATE INJ) 2 mg Q3HWA PRN IV 05/05/17 23:30 05/19/17 23:29 05/08/17 22:00 2 MG Finasteride (Proscar Tab) 5 mg DAILY PO 05/06/17 09:00 06/05/17 08:59 05/09/17 08:43 5 MG Fluticasone Propionate (Flonase Nasal [place]) 2 sprays DAILY SIMONA 05/06/17 09:00 06/05/17 08:59 05/09/17 08:43 2 SPRAYS Lisinopril (Zestril Tab) 5 mg HS PO 05/06/17 21:00 06/05/17 20:59 05/08/17 21:53 5 MG Loratadine (Claritin Tab) 10 mg DAILY PO 05/06/17 09:00 06/05/17 08:59 05/09/17 08:43 10 MG Metoprolol Tartrate (Lopressor Tab) 25 mg BID PO 05/06/17 09:00 06/05/17 08:59 05/09/17 08:43 25 MG Sertraline HCl (Zoloft Tab) 100 mg HS PO 05/06/17 21:00 06/05/17 20:59 05/08/17 21:53 100 MG Simvastatin (Zocor Tab) 80 mg HS PO 05/06/17 21:00 06/05/17 20:59 05/08/17 21:52 80 MG Tamsulosin HCl (Flomax Cap) 0.4 mg HS PO 05/06/17 21:00 06/05/17 20:59 05/08/17 21:52 0.4 MG Tolterodine Tartrate (Detrol LA Cap) 4 mg DAILY PO 05/06/17 09:00 06/05/17 08:59 05/09/17 08:43 4 MG Trazodone HCl (Desyrel Tab) 100 mg HS PO 05/06/17 21:00 06/05/17 20:59 05/08/17 21:52 100 MG Pantoprazole Sodium (Protonix Tab) 40 mg BID PO 05/06/17 09:00 06/05/17 08:59 05/09/17 08:43 40 MG Piperacillin Sod/ Tazobactam Sod 3.375 gm/Dextrose 115 ml @ 28.75 mls/ hr Q8H IV 05/06/17 06:00 05/16/17 05:59 05/09/17 05:42 28.75 MLS/HR Piperacillin Sod/ Tazobactam Sod (Consult) 1 ea UD PRN N/A 05/06/17 00:15 06/05/17 00:14 Morphine Sulfate (MoRPHine SULFATE INJ) 4 mg Q1H PRN IV 05/07/17 15:00 05/21/17 14:59 05/07/17 17:36 4 MG Oxycodone/ Acetaminophen (Percocet 5-325mg Tab) 1 tab Q4H PRN PO 05/07/17 15:00 05/21/17 14:59 05/09/17 07:21 1 TAB Sodium Chloride 1,000 ml @ 75 mls/hr [id number] IV 05/07/17 15:00 06/06/17 14:59 05/09/17 06:32 75 MLS/HR Docusate Sodium (coLACE CAP) 100 mg BID PO 05/08/17 21:00 06/07/17 20:59 05/09/17 08:43 100 MG
[2017-05-09 11:49] VITALS: BP 117/67; PULSE 81; TEMP 37.1; O2SAT 93
[2017-05-09] MEDS ORDERED: CLC100 PO (11:55)
--- NOTE | 2017-05-09 12:00 | Discharge Instructions ---
Discharge Instructions Date of Service May 09, 2017. Admission Reason for Admission: Acute Cholecystitis Discharge Discharge Diagnosis / Problem: Acute Cholecystitis Discharge Goals Goal(s): Diagnostic testing, Therapeutic intervention Activity Recommendations Activity Limitations: as noted below (no heavy exertion until re-evaluated by Primary Care Physician) Driving or Machine Use: no driving while taking Percocet . Instructions / Follow-Up Instructions / Follow-Up TAKE COLACE TWICE A DAY, DRINK PLENTY OF FLUIDS. CALL PRIMARY CARE PHYSICIAN, GENERAL SURGEON OR RETURN TO ER IMMEDIATELY IF WITH : INCREASING ABDOMINAL PAIN, NAUSEA, FEVER/CHILLS. FOLLOW UP WITH PRIMARY CARE PHYSICIAN DR. BRISENO ON Sunday05/01/17 AT 1:05 PM. FOLLOW UP WITH GENERAL SURGEON DR. ANGELA ADAMS IN 2 WEEKS, PLEASE CALL HIS OFFICE FOR AN APPOINTMENT. TEL. NO. Current Hospital Diet Patient's current hospital diet: Low Fiber Diet Discharge Diet Recommended Diet: AHA Diet (Heart Healthy), Low Fiber Diet Procedures Procedures Performed: Laparoscopic cholecystectomy with intraoperative cholangiogram Pending Studies Studies pending at discharge: no Medical Emergencies . Who to Call and When: Medical Emergencies: If at any time you feel your situation is an emergency, please call 911 immediately. . Non-Emergent Contact Non-Emergency issues call your: Primary Care Provider, Surgeon Call Non-Emergent contact if: you have a fever, your pain is not controlled, your pain is worsening, wound has increased drainage, wound has increased redness, wound has increased pain, you have any medication questions . . "Provider Documentation" section prepared by Chuck Guaman. . VTE Core Measure Inpt VTE Proph given/why not?: SCD's
--- NOTE | 2017-05-09 12:06 | Discharge Summary ---
Discharge Summary Date of Service May 09, 2017. Discharge Summary Admission Date: May 05, 2017 at 22:55 Discharge Date: May 09, 2017 Discharge Disposition: Home Principal Diagnosis: Acute cholecystitis Procedures: s/p Laparoscopic Cholecystectomy 05/07/[address] Angela Adams Echo: * -- Conclusions -- * Normal LV chamber size with mild concentric LVH, sigmoid appearing septum. * Normal LV systolic function, EF 60-65%. * No segmental left ventricular wall motion abnormalities are noted. * Grade III diastolic dysfunction (restrictive physiology). * Aortic valve sclerosis mild, without significant aortic valvular stenosis. * Mild left atrial enlargement. Consultations: General Surgery Dr. Angela Adams Pending Studies/Follow-Up: Please refer to hospital course below. Medication Reconciliation New Medications: Docusate Sodium (Docusate Sodium) 100 Mg Cap 100 MG PO BID for 15 Days, #30 CAP 2 Refills Continued Medications: Ascorbic Acid (Vitamin C) 500 Mg Tab 1 TAB PO DAILY Finasteride (Proscar) 5 Mg Tab 1 TAB PO DAILY for 30 Days, #30 TAB 11 Refills Fluticasone Propionate (Nasal) (Flonase Allergy Relief) 50 Mcg/Act Spr 2 SPRAYS SIMONA DAILY Lisinopril (Lisinopril) 5 Mg Tab 5 MG PO HS Loratadine (Claritin) 10 Mg Tab 1 TAB PO DAILY, TAB 5 Refills Metoprolol Tartrate (Lopressor) (Lopressor) 25 Mg Tab 25 MG PO BID, TAB Multivitamin (Multivitamin) Tab 1 TAB PO DAILY, 0 Refills Nitroglycerin (Nitrostat) 0.4 Mg Tab 0.4 MG UT PRN PRN for CHEST PAIN, BTL Omeprazole (Prilosec) 20 Mg Capcr 20 MG PO BID Oxycodone/Acetaminophen 5MG/325MG (Percocet 5MG/325MG) Tab 1 TABLET PO Q6H PRN for Pain, TAB PAIN Sertraline (Zoloft) 100 Mg Tab 100 MG PO HS, TAB Simvastatin (Zocor) 80 Mg Tab 80 MG PO HS Tamsulosin Hcl (Flomax) 0.4 Mg Cap 0.4 MG PO HS, CAP Tolterodine Tartrate (Detrol LA) 4 Mg Capcr 1 CAP PO DAILY for 90 Days, #90 CAP 1 Refill Trazodone Hcl (Trazodone) 100 Mg Tab 100 MG PO HS, TAB Admission Information HPI (per Admitting provider): 76 year old male with PMH CAD, tobacco use, dyslipidemia, chronic rhinitis presents to the Emergency Room with complaints of Abdominal pain. Pt was in the ER early and signed AMA because he had to gave the car to his granddaughter. Now return back to the ER. Pt said that He continue to have 10/10 abdominal pain , constant, located across the abdomen. Worsening with deep breathing. Pt said that He has not had any bowel movements in the past 3 days. He thought the pain was due to the constipation. He tried taking Mylanta yesterday with no significant relief. He said about 1 week ago he had diarrhea. He does have some nausea but no episodes of vomiting. He was seen by surgery early Dr. Adams early recommended to get an U/S and plan for endoscopic cholecystectomy with possible intraoperative cholangiogram. Pt said that he is very active. He said that last time he took nitro for chest discomfort was about 6 to 8 months ago. He denies any chest pain, palpitation, dizziness, fever , vomiting and SOB Physical Exam (per Admitting): General Appearance: WD/WN, no apparent distress Head: normocephalic, atraumatic Eyes: PERRL, EOMI ENT: hearing grossly normal Neck: no JVD, trachea midline Respiratory/Chest: normal breath sounds, no respiratory distress, no accessory muscle use Cardiovascular: no edema, no gallop, no JVD, + tachycardia Abdomen/GI: normal bowel sounds, + tenderness (difuse tenderness), + guarding Back: normal inspection Extremities/Musculoskelatal: no calf tenderness Neurologic/Psych: no motor/sensory deficits, alert, normal mood/affect, oriented x 3 Skin: warm/dry, no rash Hospital Course Acute cholecystitis CT abd/pelvis: showed findings suggestive of acute cholecystitis normal LFTs 05/07/17: S/P Laparoscopic cholecystectomy with intraoperative cholangiogram by Dr. Adams Pathology: Gangrenous Cholecystitis, no Cholelithiasis Culture: rare Sally placed on Zosyn - cleared for d/c by General Surgery low fiber diet PRN Percocet Colace BID - ff up with Gen Surg Dr. Adams in 2 weeks QTC prolongation: QT corrected 510 x 2 days monitor QT interval closely while on Sertraline and Trazodone CAD Cardiology consulted for preop clearance ECHO: no segmental wall motion abnormalities aspirin allergies noted on chart continue metoprolol Hyponatremia Possible related to poor intake resolved Dyslipidemia LDL 113 Continue statin Tobacco abuse Counseling on smoking cessation nicotine patch HTN stable monitor BPH Continue flomax/proscar/Detrol Disposition: d/c home ff up with PCP in 1 week ff up with Gen Surg Dr. Adams in 2 weeks Total time spent on discharge = 30 minutes This includes examination of the patient, discharge planning, medication reconciliation, and communication with other providers. Discharge Instructions Discharge Instructions Date of Service May 09, 2017. Admission Reason for Admission: Acute Cholecystitis Discharge Discharge Diagnosis / Problem: Acute Cholecystitis Discharge Goals Goal(s): Diagnostic testing, Therapeutic intervention Activity Recommendations Activity Limitations: as noted below (no heavy exertion until re-evaluated by Primary Care Physician) Driving or Machine Use: no driving while taking Percocet . Instructions / Follow-Up Instructions / Follow-Up TAKE COLACE TWICE A DAY, DRINK PLENTY OF FLUIDS. CALL PRIMARY CARE PHYSICIAN, GENERAL SURGEON OR RETURN TO ER IMMEDIATELY IF WITH : INCREASING ABDOMINAL PAIN, NAUSEA, FEVER/CHILLS. FOLLOW UP WITH PRIMARY CARE PHYSICIAN DR. BRISENO ON Sunday05/01/17 AT 1:05 PM. FOLLOW UP WITH GENERAL SURGEON DR. ANGELA ADAMS IN 2 WEEKS, PLEASE CALL HIS OFFICE FOR AN APPOINTMENT. TEL. NO. Current Hospital Diet Patient's current hospital diet: Low Fiber Diet Discharge Diet Recommended Diet: AHA Diet (Heart Healthy), Low Fiber Diet Procedures Procedures Performed: Laparoscopic cholecystectomy with intraoperative cholangiogram Pending Studies Studies pending at discharge: no Medical Emergencies . Who to Call and When: Medical Emergencies: If at any time you feel your situation is an emergency, please call 911 immediately. . Non-Emergent Contact Non-Emergency issues call your: Primary Care Provider, Surgeon Call Non-Emergent contact if: you have a fever, your pain is not controlled, your pain is worsening, wound has increased drainage, wound has increased redness, wound has increased pain, you have any medication questions . . "Provider Documentation" section prepared by Chuck Guaman. . VTE Core Measure Inpt VTE Proph given/why not?: SCD's
== END 2017-05-09 13:20 | disposition home or self-care (01) | DRG 418 ==
LOC: C.EDB 21:42 → C.MSW 22:55 → ENRESERV 23:07 → CANRESERV 23:07 → ENRESERV 23:54
PROVIDERS: ADMIT Internal Medicine; ATTEND Internal Medicine
PROC: BF13YZZ Fluoroscopy of Gallbladder and Bile Ducts using Other Contrast (ICD-10-PCS; principal; 2017-05-07 07:30)
PROC: 0FT44ZZ Resection of Gallbladder, Percutaneous Endoscopic Approach (ICD-10-PCS; principal; 2017-05-07 07:30)
DX: K81.0 Acute cholecystitis (principal); E87.1 Hypo-osmolality and hyponatremia; F17.210 Nicotine dependence, cigarettes, uncomplicated; I10 Essential (primary) hypertension; Z82.49 Family history of ischemic heart disease and other diseases of the circulatory system; I25.10 Atherosclerotic heart disease of native coronary artery without angina pectoris; N40.0 Benign prostatic hyperplasia without lower urinary tract symptoms; E78.5 Hyperlipidemia, unspecified

== ENCOUNTER 2017-07-17 12:03 | Emergency (ER) | payer OTHER ==
[~2017-07-17] VITALS: Ht 167.6 cm; Wt 90.7 kg
[~2017-07-17 12:03] MED LIST changes: -ACET-1311 PO; -ANXIETY MED PO; -ASPEC81 PO; -ASPI81TA21 PO; -ATV5 PO; -BROM0.07 OPL; +CLC100 PO; +DTRSR4 PO; +FINA5TAB4 PO; -LISI5TAB3 PO; +LORA10TA51 PO; -PRED1SUS3 OPL; +TAMS0.4C38 PO; +TRAZ100T29 PO
[2017-07-17 12:17] VITALS: TEMP 36.7; Ht 167.6 cm; Wt 90.7 kg
[2017-07-17] MEDS ORDERED: SODIUM CHLORIDE 0.9% 1000ML 1,000 ML IV STA (12:26)
--- NOTE | 2017-07-17 12:56 | EMERGENCY ROOM VISIT NOTE ---
History Report prepared by Christi: Sen Flowers Under the Supervision of: Dr. Severiano Vicente M.D. First contact with patient: 12:22 Chief Complaint: RECTAL BLEEDING Stated Complaint: BLEEDING FROM RECTUM Nursing Triage Summary: rectal bleeding for several days. states it is "gushing like i have a period" History of Present Illness The patient is a 76 year old male who presents to the Emergency Room with complaints of worsening rectal bleeding over the past three days. The patient states that he is going to the bathroom 3-4 times rer day, and every time he is having bright red blood in his stool. He notes that there is no black stools. The patient notes that he had a similar episode happen 2-3 years ago when he was on Plavix, though he is not currently on any blood thinners. He denies any chest pain, shortness of breath, abdominal pain, pain with bowel movements, nausea, vomiting, history of liver disease, any recent transfusions. The patient additionally notes that he got his gall bladder out in April. He has a history of COPD and hypertension. Source of History: patient Onset: three days ago Position: other (rectum) Quality: other (bleeding) Timing: worsening Associated Symptoms: No chest pain, No SOB, No nausea, No vomiting, No abdominal pain, No melena Review of Systems See HPI for pertinent positives and negatives. A total of ten systems were reviewed and were otherwise negative. Past Medical & Surgical Medical Problems: (1) Acute cholecystitis (2) Hypertension Family History Cancer Heart disease Hypertension Social History Smoking Status: Current Every Day Smoker Alcohol Use: none Marital Status: Housing Status: lives with family Occupation Status: retired Current/Historical Medications Scheduled Ascorbic Acid (Vitamin C), 1 TAB PO DAILY Docusate Sodium (Docusate Sodium), 100 MG PO BID Finasteride (Proscar), 1 TAB PO DAILY Fluticasone Propionate (Nasal) (Flonase Allergy Relief), 2 SPRAYS SIMONA DAILY Lisinopril (Lisinopril), 5 MG PO HS Loratadine (Claritin), 1 TAB PO DAILY Metoprolol Tartrate (Lopressor) (Lopressor), 25 MG PO BID Multivitamin (Multivitamin), 1 TAB PO DAILY Omeprazole (Prilosec), 20 MG PO BID Sertraline (Zoloft), 100 MG PO HS Simvastatin (Zocor), 80 MG PO HS Tamsulosin Hcl (Flomax), 0.4 MG PO HS Tolterodine Tartrate (Detrol LA), 1 CAP PO DAILY Trazodone Hcl (Trazodone), 100 MG PO HS Scheduled PRN Nitroglycerin (Nitrostat), 0.4 MG UT PRN PRN for CHEST PAIN Oxycodone/Acetaminophen 5MG/325MG (Percocet 5MG/325MG), 1 TABLET PO Q6H PRN for Pain Allergies Coded Allergies: Cefaclor (Verified Allergy, Intermediate, "SWELLED-UP", 07/17/17) Aspirin (Verified Allergy, Unknown, BLEEDING ULCER, 07/17/17) States he now takes 81mg daily with no trouble. Physical Exam Vital Signs Date Time Temp Pulse Resp B/P (MAP) Pulse Ox O2 Delivery O2 Flow Rate FiO2 07/17/17 14:23 66 20 128/108 95 Room Air 07/17/17 13:07 95 Room Air 07/17/17 13:03 66 07/17/17 12:17 36.7 73 20 131/70 95 Room Air Physical Exam Physical Exam GENERAL: He is oriented to person, place, and time. He appears well-developed and well-nourished. He does not appear distressed. ____ HENT: Exam performed. Head: Normocephalic and atraumatic. Right Ear: External ear normal. No mastoid tenderness. Left Ear: External ear normal. No mastoid tenderness. Mouth/Throat: The oropharynx is clear and moist. No trismus in the jaw. No dental abscesses or uvula swelling. No oropharyngeal exudate or tonsillar abscesses. ____ EYES: Conjunctivae and EOM are normal. Pupils are equal, round, and reactive to light. Right eye exhibits no discharge. Left eye exhibits no discharge. No scleral icterus. ____ NECK: Normal range of motion. Neck supple. No JVD present. No spinous process tenderness present. No carotid bruit present. No rigidity. No tracheal deviation and normal range of motion present. No Brudzinski's sign and no Kernig 's sign noted. ____ CV: Mild systolic murmur grade 1/2. Normal rate, regular rhythm, intact distal pulses. There is no peripheral edema. Palpable radial pulses bue. ____ PULM/CHEST: Scant expiratory wheezes. Effort normal. No respiratory distress. No stridor. He has no rales. Chest Wall: He exhibits no tenderness. ____ ABD: The abdomen is soft. Bowel sounds are normal. He has no distension. No mass is present. There is no tenderness. There is no rebound, no guarding, no Schaefer's sign and no tenderness at McBurney's point. Rovsig negative RECTAL; Hematochezia/ bright red blood per rectum with clots. No hemorrhoids or fissures MUSC/SKEL: Normal range of motion. There is no peripheral edema, tenderness or deformity. LYMPH: No cervical adenopathy. ____ NEURO: He is alert and oriented to person, place, and time. He has normal strength. No cranial nerve deficit or sensory deficit. Coordination and gait normal. GCS eye subscore is 4. GCS verbal subscore is 5. GCS motor subscore is 6. cerbellar tests wnl. ____ SKIN: Skin is warm and dry. He is not diaphoretic. ____ PSYCH: He has a normal mood and affect. His behavior is normal. Judgment and thought content normal. ____ Medical Decision & Procedures Laboratory Results 07/17/17 12:40 Red Blood Count 4.36, Mean Corpuscular Volume 89.7, Mean Corpuscular Hemoglobin 31.2, Mean Corpuscular Hemoglobin Concent 34.8, Mean Platelet Volume 9.7, Neutrophils (%) (Auto) 54.9, Lymphocytes (%) (Auto) 34.6, Monocytes (%) (Auto) 6.4, Eosinophils (%) (Auto) 3.2, Basophils (%) (Auto) 0.8, Neutrophils # (Auto) 4.27, Lymphocytes # (Auto) 2.69, Monocytes # (Auto) 0.50, Eosinophils # (Auto) 0.25, Basophils # (Auto) 0.06 07/17/17 16:11 07/17/17 12:40 Test 07/17/17 12:40 White Blood Count 7.78 K/uL (4.8-10.8) Red Blood Count 4.36 M/uL (4.7-6.1) Hemoglobin 13.6 g/dL (14.0-18.0) Hematocrit 39.1 % (42-52) Mean Corpuscular Volume 89.7 fL (80-100) Mean Corpuscular Hemoglobin 31.2 pg (25-34) Mean Corpuscular Hemoglobin Concent 34.8 g/dl (32-36) Platelet Count 202 K/uL (130-400) Mean Platelet Volume 9.7 fL (7.4-10.4) Neutrophils (%) (Auto) 54.9 % Lymphocytes (%) (Auto) 34.6 % Monocytes (%) (Auto) 6.4 % Eosinophils (%) (Auto) 3.2 % Basophils (%) (Auto) 0.8 % Neutrophils # (Auto) 4.27 K/uL (1.4-6.5) Lymphocytes # (Auto) 2.69 K/uL (1.2-3.4) Monocytes # (Auto) 0.50 K/uL (0.11-0.59) Eosinophils # (Auto) 0.25 K/uL (0-0.5) Basophils # (Auto) 0.06 K/uL (0-0.2) RDW Standard Deviation 48.1 fL (36.4-46.3) RDW Coefficient of Variation 14.7 % (11.5-14.5) Immature Granulocyte % (Auto) 0.1 % Immature Granulocyte # (Auto) 0.01 K/uL (0.00-0.02) Prothrombin Time 10.2 SECONDS (9.0-12.0) Prothromb Time International Ratio 1.0 (0.9-1.1) Activated Partial Thromboplast Time 25.9 SECONDS (21.0-31.0) Partial Thromboplastin Ratio 1.0 Anion Gap 6.0 mmol/L (3-11) Est Creatinine Clear Calc Drug Dose 62.9 ml/min Estimated GFR () 78.3 Estimated GFR (Non- 67.5 BUN/Creatinine Ratio 14.5 (10-20) Calcium Level 8.7 mg/dl (8.5-10.1) Total Bilirubin 0.3 mg/dl (0.2-1) Aspartate Amino Transf (AST/SGOT) 17 U/L (15-37) Alanine Aminotransferase (ALT/SGPT) 22 U/L (12-78) Alkaline Phosphatase 72 U/L (45-117) Total Protein 7.2 gm/dl (6.4-8.2) Albumin 3.7 gm/dl (3.4-5.0) Globulin 3.5 gm/dl (2.5-4.0) Albumin/Globulin Ratio 1.1 (0.9-2) Lipase 106 U/L (73-393) Laboratory results reviewed by me Medications Administered Medications (Trade) Dose Ordered Sig/Cristina Route Start Time Stop Time Status Last Admin Dose Admin Sodium Chloride 1,000 ml @ 125 mls/hr Q8H STAT IV 07/17/17 12:26 07/17/17 17:51 DC 07/17/17 12:53 125 MLS/HR ED Course 1222: The patient was evaluated in room C9. A complete history and physical exam was performed. 1226: Sodium Chloride 1000 ml @ 125 mls/hr IV 1419: VSS. I discussed the results with the patient, and he is feeling better. The bleeding was under control. Hemoglobin was stable, and the patient does not want to stay in the hospital. I discussed the plan of care. If the repeat hemoglobin does not show a significant drop on repeat, then the patient will be discharged to follow up with his PCP. I spoke with the patients PCP, and if there is no significant decline, the patient will follow up ads an outpatient, and if there is a drop, then he will be evaluated by the hospitalist. 1641: VSS. Serial abdominal exam was within normal limits. His repeat hemoglobin was stable, and he will follow up with his PCP. DISCHARGE - Plan of care discussed with patient and questions answered. The patient was given both verbal and printed discharge instructions. The patient verbalized understanding and ability to comply. The patient is to seek outpatient follow up as noted in the discharge instructions. The patient verbalized understanding and ability to comply. The patient is discharged in stable condition. The patient was instructed to return for worsening symptoms. Medical Decision Vital signs stable serial abdominal exams within normal limits repeat hemoglobins within normal limits. Patient will follow-up with PCP. Medication Reconcilliation Current Medication List: was personally reviewed by me Blood Pressure Screening Patient's blood pressure: Normal blood pressure Impression Primary Impression: Hematochezia Scribe Attestation The scribe's documentation has been prepared under my direction and personally reviewed by me in its entirety. I confirm that the note above accurately reflects all work, treatment, procedures, and medical decision making performed by me. The chart was completed utilizing [employer] Speech voice recognition software. Grammatical errors, random word insertions, pronoun errors, and incomplete sentences are an occasional consequence of this system due to software limitations, ambient noise, and hardware issues. Any formal questions or concerns about the content, text, or information contained within the body of this dictation should be directly addressed to the physician for clarification. Departure Information Dispostion Home / Self-Care Referrals Salas Gibbons D.O. (PCP) Forms HOME CARE DOCUMENTATION FORM, IMPORTANT VISIT INFORMATION, WORK / SCHOOL INSTRUCTIONS Patient Instructions ED Hematochezia Stable, My [facility] Additional Instructions Return to the emergency department if you experience chest pain, shortness of breath, abdominal pain, nausea, vomiting, bloody vomit, or worsening of symptoms
[2017-07-17 13:06] LABS: BASO % 0.8 %; BASO ABS # 0.06 K/uL (0-0.2); EOS % 3.2 %; EOS ABS # 0.25 K/uL (0-0.5); HEMATOCRIT 39.1 % (42-52); HEMOGLOBIN 13.6 g/dL (14.0-18.0); IG# 0.01 K/uL (0.00-0.02); LYMPH % 34.6 %; LYMPH ABS # 2.69 K/uL (1.2-3.4); MEAN CELL VOLUME 89.7 fL (80-100); MEAN CORPUSCULAR HEMOGLOBIN 31.2 pg (25-34); MEAN CORPUSCULAR HGB CONC 34.8 g/dl (32-36); MEAN PLATELET VOLUME 9.7 fL (7.4-10.4); MONO % 6.4 %; NEUT % 54.9 %; NEUT ABS # 4.27 K/uL (1.4-6.5); PLATELET COUNT 202 K/uL (130-400); RED CELL DISTRIBUTION WIDTH CV 14.7 % (11.5-14.5); RED CELL DISTRIBUTION WIDTH SD 48.1 fL (36.4-46.3); WHITE BLOOD COUNT 7.78 K/uL (4.8-10.8)
[2017-07-17 13:07] VITALS: O2SAT 95
[2017-07-17 13:16] LABS: PTT PATIENT 25.9 SECONDS (21.0-31.0)
[2017-07-17 13:35] LABS: ALBUMIN 3.7 gm/dl (3.4-5.0); CALCIUM 8.7 mg/dl (8.5-10.1); CREATININE 1.07 mg/dl (0.60-1.40); POTASSIUM 4.1 mmol/L (3.5-5.1)
[2017-07-17 13:37] LABS: TOTAL PROTEIN 7.2 gm/dl (6.4-8.2)
[2017-07-17 14:23] VITALS: BP 128/108; PULSE 66; O2SAT 95
[2017-07-17 16:29] LABS: HEMATOCRIT 40.5 % (42-52); HEMOGLOBIN 14.2 g/dL (14.0-18.0)
== END 2017-07-17 17:01 | disposition home or self-care (01) ==
LOC: C.EDB 12:05 → C.EDC 17:01
DX: K92.1 Melena (principal); J44.9 Chronic obstructive pulmonary disease, unspecified; I10 Essential (primary) hypertension; Z90.49 Acquired absence of other specified parts of digestive tract; Z80.9 Family history of malignant neoplasm, unspecified; Z82.49 Family history of ischemic heart disease and other diseases of the circulatory system; F17.210 Nicotine dependence, cigarettes, uncomplicated; Z79.899 Other long term (current) drug therapy

== ENCOUNTER 2019-05-27 04:43 | Inpatient (IN) ==
--- NOTE | 2019-05-01 16:18 | PAT Medication Instructions ---
Medication Instructions Date of Service May 01, 2019 Home Medications aspirin 81 mg PO QPM 05/01/19 [History Confirmed 05/01/19] atorvastatin 80 mg PO PM 05/01/19 [History Confirmed 05/01/19] diclofenac sodium [Voltaren] 2 g TOPICAL QID 05/01/19 [History Confirmed 05/01/19] finasteride 5 mg PO QPM 05/01/19 [History Confirmed 05/01/19] fluticasone propionate [Flonase Allergy Relief] 1 spray INTRANASAL DAILY 05/01/19 [History Confirmed 05/01/19] gabapentin 100 mg PO TID 05/01/19 [History Confirmed 05/01/19] hydrocortisone 1 applic TOPICAL BID PRN 05/01/19 [History Confirmed 05/01/19] lisinopril 5 mg PO QPM 05/01/19 [History Confirmed 05/01/19] loratadine [Claritin] 10 mg PO DAILY PRN 05/01/19 [History Confirmed 05/01/19] metoprolol tartrate 25 mg PO BID 05/01/19 [History Confirmed 05/01/19] multivitamin 1 tab PO QAM 05/01/19 [History Confirmed 05/01/19] nitroglycerin 0.4 mg SUBLINGUAL UD PRN 05/01/19 [History Confirmed 05/01/19] omeprazole 20 mg PO BID 05/01/19 [History Confirmed 05/01/19] oxycodone-acetaminophen 1 tab PO QID 05/01/19 [History Confirmed 05/01/19] ropinirole 0.5 mg PO HS 05/01/19 [History Confirmed 05/01/19] sertraline 100 mg PO QPM 05/01/19 [History Confirmed 05/01/19] tamsulosin 0.4 mg PO HS 05/01/19 [History Confirmed 05/01/19] tolterodine [Detrol LA] 4 mg PO QPM 05/01/19 [History Confirmed 05/01/19] trazodone 100 mg PO HS 05/01/19 [History Confirmed 05/01/19] varenicline [Chantix] 1 mg PO BID 05/01/19 [History Confirmed 05/01/19] Continue as directed nitroglycerin 0.4 mg SUBLINGUAL UD PRN (if needed) STOP taking 24 hours before surgery ropinirole 0.5 mg PO HS 05/01/19 [History Confirmed 05/01/19] diclofenac sodium [Voltaren] 2 g TOPICAL QID 05/01/19 [History Confirmed 05/01/19] DO NOT take the morning of surgery loratadine [Claritin] 10 mg PO DAILY PRN 05/01/19 [History Confirmed 05/01/19] multivitamin 1 tab PO QAM 05/01/19 [History Confirmed 05/01/19] varenicline [Chantix] 1 mg PO BID 05/01/19 [History Confirmed 05/01/19] Take morning of surgery With a small sip of water, OTHERWISE NOTHING TO EAT OR DRINK AFTER MIDNIGHT: fluticasone propionate [Flonase Allergy Relief] 1 spray INTRANASAL DAILY 05/01/19 [History Confirmed 05/01/19] gabapentin 100 mg PO TID 05/01/19 [History Confirmed 05/01/19] metoprolol tartrate 25 mg PO BID 05/01/19 [History Confirmed 05/01/19] omeprazole 20 mg PO BID 05/01/19 [History Confirmed 05/01/19] oxycodone-acetaminophen 1 tab PO QID 05/01/19 [History Confirmed 05/01/19] (okay to take up to 4 hours prior to surgery if needed) Take evening before surgery aspirin 81 mg PO QPM 05/01/19 [History Confirmed 05/01/19] atorvastatin 80 mg PO PM 05/01/19 [History Confirmed 05/01/19] finasteride 5 mg PO QPM 05/01/19 [History Confirmed 05/01/19] gabapentin 100 mg PO TID 05/01/19 [History Confirmed 05/01/19] lisinopril 5 mg PO QPM 05/01/19 [History Confirmed 05/01/19] loratadine [Claritin] 10 mg PO DAILY PRN 05/01/19 [History Confirmed 05/01/19] (if needed) metoprolol tartrate 25 mg PO BID 05/01/19 [History Confirmed 05/01/19] omeprazole 20 mg PO BID 05/01/19 [History Confirmed 05/01/19] oxycodone-acetaminophen 1 tab PO QID 05/01/19 [History Confirmed 05/01/19] sertraline 100 mg PO QPM 05/01/19 [History Confirmed 05/01/19] tamsulosin 0.4 mg PO HS 05/01/19 [History Confirmed 05/01/19] tolterodine [Detrol LA] 4 mg PO QPM 05/01/19 [History Confirmed 05/01/19] trazodone 100 mg PO HS 05/01/19 [History Confirmed 05/01/19] varenicline [Chantix] 1 mg PO BID 05/01/19 [History Confirmed 05/01/19] Other Notes If you have any questions please call us at [phone] or [phone] or [phone] or [phone]
--- NOTE | 2019-05-02 08:23 | Anesthesiology Consultation ---
Date of Service May 02, 2019 Assessment & Plan (1) Encounter for pre-operative examination: - Awaiting review preop testing (labs). - Awaiting surgeon-ordered PCP clearance ([facility]). - Cardiology: 02/21/19: Stable cardiac symptoms with Mild intermittent chest pain unchanged (cardiac cath done 09/2018 revealed moderate, non-obstructive CAD). Continued on same regimen. T/C addition of nitrates to regimen in future if anginal symptoms become more pronounced. Plan for next ECHO 08/2019. [No chest pain complaints at PAT visit subsequently 05/02/19]. History Surgery Operation Date: 05/27/19 07:00 Proposed Procedures p Right Total Knee Arthroplasty - Erlin Alves MD Height/Weight Height: 5 ft 6 in Weight: 94.1 kg Allergies Allergy/AdvReac Type Severity Reaction Status Date / Time cefaclor Allergy Intermediate swelling Verified 05/02/19 08:23 aspirin Allergy Unknown bleeding Verified 05/02/19 08:23 ulcer (tolerates 81mg) Medications Home Medications Medication Instructions Recorded Confirmed Last Taken aspirin 81 mg PO QPM 05/01/19 05/01/19 Unknown atorvastatin 80 mg PO PM 05/01/19 05/01/19 Unknown diclofenac sodium [Voltaren] 2 g TOPICAL QID 05/01/19 05/01/19 Unknown finasteride 5 mg PO QPM 05/01/19 05/01/19 Unknown fluticasone propionate [Flonase 1 spray INTRANASAL DAILY 05/01/19 05/01/19 Unknown Allergy Relief] gabapentin 100 mg PO TID 05/01/19 05/01/19 Unknown hydrocortisone 1 applic TOPICAL BID PRN 05/01/19 05/01/19 Unknown lisinopril 5 mg PO QPM 05/01/19 05/01/19 Unknown loratadine [Claritin] 10 mg PO DAILY PRN 05/01/19 05/01/19 Unknown metoprolol tartrate 25 mg PO BID 05/01/19 05/01/19 Unknown multivitamin 1 tab PO QAM 05/01/19 05/01/19 Unknown nitroglycerin 0.4 mg SUBLINGUAL UD PRN 05/01/19 05/01/19 Unknown omeprazole 20 mg PO BID 05/01/19 05/01/19 Unknown oxycodone-acetaminophen 1 tab PO QID 05/01/19 05/01/19 Unknown ropinirole 0.5 mg PO HS 05/01/19 05/01/19 Unknown sertraline 100 mg PO QPM 05/01/19 05/01/19 Unknown tamsulosin 0.4 mg PO HS 05/01/19 05/01/19 Unknown tolterodine [Detrol LA] 4 mg PO QPM 05/01/19 05/01/19 Unknown trazodone 100 mg PO HS 05/01/19 05/01/19 Unknown varenicline [Chantix] 1 mg PO BID 05/01/19 05/01/19 Unknown Past Medical History Medical History Anxiety BPH (benign prostatic hyperplasia) CAD (coronary artery disease) moderate, non-obstructive per 09/2018 cardiac cath, hx balloon angioplasty in 2007 per records Depression GERD (gastroesophageal reflux disease) controlled [place] (hard of hearing) History of GI bleed + gastric ulcer Hyperlipidemia Hypertension Insomnia Obesity Osteoarthritis Poor historian Restless leg Sciatica Sleep apnea non compliant w/ cpap Spinal stenosis Valvular heart disease mild aortic stenosis per 09/2018 cardiac cath Exercise / Class Metabolic Activity III < 4 Walking/Shop/Light housework Past Surgical History Surgical History History of cardiac cath 09/2018 - [facility] - CP - NO STENTS 2010 [facility] - NO STENTS 2007 - BALLOON ANGIOPLASTY LAD PER MEDICAL RECORD 2000 - [facility] - NO STENTS History of cataract surgery History of cholecystectomy History of colonoscopy History of esophagogastroduodenoscopy (EGD) History of right knee surgery x 2 History of tonsillectomy and adenoidectomy Past Anesthesia History No Hx of Anesthesia Complications and No Family Hx of Anesthesia Complications History of PONV No Hx of PONV and No Hx of Motion Sickness Social History Smoking Status: Current every day smoker tobacco type: cigarettes Smoking cigarettes per day: 1/4 ppd Do You Dip or Chew Tobacco: No Hx Alcohol Use: No Hx Substance Use: No substance use type: does not use Review of Systems Reflux controlled. Patient denies chest pain, shortness of breath, cough, wheezing, palpitations. Physical Exam Vital Signs VITALS BP 154/80 P 65 TEMP 98.3 SP02 97%RA RESP 16 PHYSICAL Full neck and c-spine range of motion. Full TMJ range of motion. TMD 3.5 finger breaths Mallampati Score 3 Dentition: no remaining teeth Lungs: clear throughout to auscultation Cardiac: regular rate and rhythm, II/ systolic murmur Spine: normal Carotid arteries: negative bruit Extremities: no edema Testing Electrocardiogram Date: 09/13/18 ST with first degree AVB at 73bpm. Anteroseptal infarct, age undertermined. ST/TWA, consider inferior ischemia. *Subsequent cardiac cath done 10/02/18 revealing moderate, non-obstructive CAD." Echocardiogram Date: 05/06/17 EF 60-65%. No RWMA. Mild cLVH. Sigmoid appearing septum. Grade III DD. Mild AV sclerosis. Mild LAE. Cardiac Catheterization Date: 10/02/18 Coronary Anatomy Dominant: Left Left Main (% Stenosis): Normal (Very short) LAD (% Stenosis): Proximal (40%) and Distal (Mild irregularities) D1 (% Stenosis): Ostial (100%, thin vessel) D2 (% Stenosis): Normal Circumflex (% Stenosis): Mid (Mild irregularity) OM1 (% Stenosis): Normal (Large trifurcating vessel) L PL1 (% Stenosis): Normal L PL2 (% Stenosis): Normal L PDA (% Stenosis): Normal R PDA (% Stenosis): Mid (30% in nondominant vessel) Aortic Regurgitation: 2+ (Mildly dilated aortic root) Mildly calcified aortic valve with 12 mm peak to peak aortic valve gradient reflecting mild aortic stenosis Medical therapy recommended Other Testing CT Thorax: 03/30/19: No evidence of lung cancer. Ectatatic ascending aorta measuring 3.9cm. Severe coronary artery calcification.
[2019-05-02 10:10] LABS: Basophils # (auto) 0.04 K/uL (0-0.2); Basophils % (auto) 0.6 %; Eosinophils # (auto) 0.18 K/uL (0-0.5); Eosinophils % (auto) 2.6 %; Hematocrit (blood only) 39.2 % (42-52); Hemoglobin 13.4 g/dL (14.0-18.0); Immature Granulocytes # (auto) 0.02 K/uL (0.00-0.02); Immature Granulocytes % (auto) 0.3 %; Lymphocytes # (auto) 2.08 K/uL (1.2-3.4); Lymphocytes % (auto) 30.2 %; Mean Corpuscular Hgb Conc 34.2 g/dL (32-36); Mean Corpuscular Volume 90.7 fL (80-100); Mean Platelet Volume 10.3 fL (7.4-10.4); Monocytes # (auto) 0.49 K/uL (0.11-0.59); Monocytes % (auto) 7.1 %; Neutrophils # (auto) 4.07 K/uL (1.4-6.5); Neutrophils % (auto) 59.2 %; Platelet Count 191 K/uL (130-400); RDW Coefficient of Variation 14.7 % (11.5-14.5); RDW Standard Deviation 49.1 fL (36.4-46.3); Red Blood Count 4.32 M/uL (4.7-6.1); White Blood Count 6.88 K/uL (4.8-10.8)
[2019-05-02 10:18] LABS: Alanine Aminotransferase 24 U/L (12-78); Albumin Level 3.5 gm/dl (3.4-5.0); Aspartate Aminotransferase 19 U/L (15-37); BUN Creatinine Ratio 14.7 (10-20); Bilirubin Direct < 0.1 mg/dl (0-0.2); Blood Urea Nitrogen 16 mg/dl (7-18); Calcium 8.7 mg/dl (8.5-10.1); Carbon Dioxide 25 mmol/L (21-32); Chloride 107 mmol/L (98-107); Creatinine Clr Calc Pharmacy 62.1 ml/min; Est GFR (African American) 77.2; Est GFR (Non-African American) 66.6; Glucose 147 mg/dl (70-99); Potassium 3.6 mmol/L (3.5-5.1); Sodium 138 mmol/L (136-145)
[2019-05-02 10:21] LABS: Alkaline Phosphatase 69 U/L (45-117); Bilirubin,Total 0.3 mg/dl (0.2-1); Total Protein 7.4 gm/dl (6.4-8.2)
[2019-05-02 10:32] LABS: Partial Thromboplastin Ratio 0.9; Partial Thromboplastin Time 25.7 Seconds (21.0-31.0); Prothrombin Time 10.3 Seconds (9.0-12.0)
[2019-05-27] MEDS ORDERED: SCOPOLAMINE 1.5 MG TDSY ONE (05:42)
[2019-05-27] MEDS ORDERED: SCOPOLAMINE 1.5 MG TDSY TD SCH (06:00)
[2019-05-27] MEDS ORDERED: ROPIVACAINE 0.5% HCL/PF 150 MG, BUPIVACAINE 0.5% MPF 30 ML, EPINEPHrine 0.15 MG, Ketoro... INFIL SCH (06:00)
[2019-05-27] MEDS ORDERED: LR 60ML/HR IV SCH (06:00)
[2019-05-27] MEDS ORDERED: LR 500ML BOLUS IV SCH (06:00)
[2019-05-27] MEDS ORDERED: CEFAZOLIN 2000MG 2,000 MG/15 ML SYR IV SCH (06:00)
[2019-05-27] MEDS ORDERED: TRANEXAMIC ACID 1,000 MG **IV Pre-op IV SCH (06:00)
[2019-05-27] MEDS ORDERED: BUPIVACAINE 0.5 % 5 MG/1 ML PF 10ML VIAL ONE (06:20)
[2019-05-27] MEDS ORDERED: EPINEPHrine INJ 1 MG/ML AMP ONE (06:21)
[2019-05-27] MEDS ORDERED: ROPIVACAINE 0.5% 5 MG/ML 30 ML VIAL ONE (06:21)
[2019-05-27] MEDS ORDERED: TRANEXAMIC ACID 1,000 MG **IV Intra-op IV SCH (06:30)
[2019-05-27] MEDS ORDERED: fentaNYL citrate 100 MCG/2 ML VIAL ONE (06:32)
[2019-05-27] MEDS ORDERED: MIDAZOLAM HCL 1 MG/ML 2ML VIAL ONE (06:33)
[2019-05-27] MEDS ORDERED: PROPOFOL IV EMULSION 10 MG/ML 20 ML VIAL IV ONE ×2 (06:36→09:13)
--- NOTE | 2019-05-27 06:40 | History & Physical Bridge Note ---
Date of Service May 27, 2019 History & Physical Bridge Note I have examined the patient, reviewed the History & Physical and in the interval since the performance of the History & Physical I have noted the following changes of clinical significance: no changes noted
[2019-05-27] MEDS ORDERED: ORTHO JOINT ANESTHETIC ONE (07:03)
[2019-05-27] MEDS ORDERED: ONDANSETRON INJ 2 MG/ML 2 ML VIAL IV PRN ×2 (07:24→10:20)
[2019-05-27] MEDS ORDERED: LABETALOL HCL IV 5 MG/ML 20ML IV PRN (07:24)
[2019-05-27] MEDS ORDERED: ePHEDrine sulfate 50 MG/ML AMP IV PRN (07:24)
[2019-05-27] MEDS ORDERED: fentaNYL citrate 100 MCG/2 ML VIAL IV PRN (07:24)
[2019-05-27] MEDS ORDERED: ATROPINE SULFATE 0.1 MG/ML 10ML SYR IV PRN (07:24)
[2019-05-27] MEDS ORDERED: PHENYLEPHRINE 100MCG/ML 5ML SYR IV PRN (07:24)
[2019-05-27] MEDS ORDERED: DEXAMETHASONE SOD INJ 4 MG/ML VIAL ONE (07:38)
[2019-05-27] MEDS ORDERED: ONDANSETRON INJ 2 MG/ML 2 ML VIAL ONE (09:09)
--- NOTE | 2019-05-27 09:57 | Post Operative Brief Note ---
Immediate Post Op Note v1 Date of Surgery May 27, 2019 Pre & Post Diagnosis Operation Date: 05/27/19 07:00 Pre-Op Diagnosis: Right Knee Osteoarthritis Post-Op Diagnosis: Right Knee Osteoarthritis I identified the patient and participated in the time-out.: Yes Procedure Operation Date: 05/27/19 07:00 Actual Procedures p Right Total Knee Arthroplasty(Right) - Erlin Alves MD Surgeon Erlin Alves MD Filament Cutter J STUART PAAllen Estimated Blood Loss 100 Findings Consistent with Post-Op Diagnosis Fluids 1200 cc Specimens Right knee contents Anesthesia Type MAC Spinal Regional Complications none
--- NOTE | 2019-05-27 10:01 | Operative Report ---
Post Operative Report Pre & Post Diagnosis Operation Date: 05/27/19 07:00 Pre-Op Diagnosis: Right Knee Osteoarthritis Post-Op Diagnosis: Right Knee Osteoarthritis I identified the patient and participated in the time-out.: Yes Procedure Operation Date: 05/27/19 07:00 Actual Procedures p Right Total Knee Arthroplasty(Right) - Erlin Alves MD Surgeon Erlin Alves MD Spool Winder Rajinder DAVIDSON PA-C Estimated Blood Loss 100 Findings See Below Severe degenerative right knee OA with bone on bone medial compartment, absent patella with advancement of quad muscle distally. Scarring of quad to pouch. Fluids 1200 cc Specimens Right knee contents Drains n/a Anesthesia Type MAC Spinal Regional Complications none Indications This is a 78-year-old male who has clinical and radiographic findings consistent with end-stage osteoarthritis of the a right knee, following a long history of previous patellectomy. I recommended that a right total knee replacement be pe rformed. The patient understands the risks of surgery, which include but not limited to: bleeding, infection, re-operation, damage to nerves and arteries, continued knee pain, knee stiffness, DVT, and . The patient understands all of these instructions and explanations, all of his questions have been satisfactorily addressed and the patient has elected to proceed. Informed consent was signed. Description of Procedure FINDINGS: Examined Under Anesthesia: ROM -- There was 5 degrees to 125 degrees of flexion Ligamentous examination -- revealed stable Minor, posterior drawer, varus stress at 0 and 30 degrees, valgus stress at zero and 30 and 1 mm of opening. [place] Type IV changes of the medial compartment with [id number], the meniscus was macerated. Type II-III changes of the lateral compartment. The patella was absent per prior patellectomy may and the VMO complex was advanced distal and centrally. Varus alignment of the right lower extremity. Indications: IMPLANTS: 1. Femur: Triathlon #5 Right PS. 2. Tibia: Triathlon #5 [place] with 12 x 50 mm stem. 3. Insert: Triathlon #5 x 11 mm PS X3 poly. 4. Simplex cement. Procedure: The patient was taken to the Operating Room and placed in the supine position after spinal and adductor canal nerve block was administered. My initials and a multidisciplinary time-out were used to identify the right leg as the correct operative limb. A tourniquet was placed high in the thigh. Prior to the incision, 2 grams of intravenous Ancef were given. The right leg was then prepped and draped in a standard sterile fashion. An Esmarch was used to exsanguinate the leg and the tourniquet was inflated to 250 mmHg. The planned mid-line 16 cm incision was created exposing the extensor mechanism and advanced VMO. A medial parapatellar arthrotomy was made and the VMO was elevated with a Hendricks, the overlying fascia of the VMO was split in line with the fibers, to allow exposure of the distal femur. There was significant scarring of the undersurface of the quad tendon in the suprapatellar pouch that was bluntly dissected. The femur was addressed first and the guide jone was placed intramedullary. The initial cutting block was placed with 5 degrees of valgus and removing 10 mm for the anterior cut. The cut was made and the 4-in-1 cutting block for a size 5 femur was placed. These cuts and the cuts to place the box were made in the standard fashion. Our attention was then drawn to the tibia cut with the external cutting guide, taking 4 mm from the medial low side. There was sufficient extension and flexion gap to fit a 11 mm spacer. A #5 Tibial baseplate fit well. A trial with a 11 mm spacer showed excellent stability in both flexion and extension, with good ligament balance. Range of motion of 0-120 degrees. The tibial baseplate was pinned and the final preparation for the keel and stem was made. A stem was used due to some areas of soft bone, to avoid subsidence. All components were removed. The tourniquet was deflated. Hemostasis was obtained. 90 ml of total knee cocktail were injected into the soft tissues and periosteum. A bone plug was placed in the femur and covered with bone wax. After a 15 minute break, the limb was exsanguinated again and the tourniquet was re-inflated. All surfaces were copiously irrigated prior to placement of the components. The femoral component and Tibial baseplate were cemented and an 11 mm trial placed and the range of motion and stability were unchanged. Once the cement had cured, the 11 mm X3 poly was placed. The extensor mechanism and VMO fascia were closed with 1-0 and 0 Vicryl with the knee bent approximately 60 degrees in a standard fashion. The subcutaneous layer was closed with 3-0 Vicryl. The skin was closed with Zipline. The limb was cleaned and dried. 4x4 dressing was placed over top followed by ABDs, sterile Webril, and a foot to thigh Kameron bandage. The patient was then transferred to the Recovery Room in stable condition. The sponge and needle counts were correct. POST-OP INSTRUCTIONS: The patient will be WBAT. The patient will be admitted to the hospital. The patient will use the knee immobilizer when ambulating and standing for 48 hours max or until good quad control is achieved. Labs will be obtained during the stay. DVT prophylaxis will included aspirin for 6 weeks, TEDs, and mechanical foot pumps. The dressing will be changed prior to their discharge or postop day #2 and covered with a Silverlon dressing, whichever comes first. I attest to the content of the Intraoperative Record and any orders documented therein. Any exceptions are noted below.
[2019-05-27] MEDS ORDERED: METOCLOPRAMIDE HCL INJ 5 MG/ML 2 ML VIAL IV PRN (10:20)
[2019-05-27] MEDS ORDERED: DiphenhydrAMINE HCL 50 MG/ML VIAL IV PRN (10:20)
[2019-05-27] MEDS ORDERED: LORATADINE 10 MG TAB PO PRN (10:20)
[2019-05-27] MEDS ORDERED: ALUMINUM/MAGNESIUM SUSP 30 ML UDC PO PRN (10:20)
[2019-05-27] MEDS ORDERED: MAGNESIUM HYDROXIDE SUSP 30 ML UDC PO PRN (10:20)
[2019-05-27] MEDS ORDERED: BISACODYL 10 MG SUPP PR PRN (10:20)
[2019-05-27] MEDS ORDERED: NITROGLYCERIN SL 0.4 MG/TAB TAB SL PRN (10:20)
[2019-05-27] MEDS ORDERED: NALOXONE HCL 0.4 MG/1 ML VIAL/CARP IV PRN (10:20)
[2019-05-27] MEDS ORDERED: HYDROmorphone INJ 0.5 MG/0.5 ML SYR IV PRN (10:20)
--- NOTE | 2019-05-27 10:22 | Operative Report ---
Post Operative Report Pre & Post Diagnosis Operation Date: 05/27/19 07:00 Pre-Op Diagnosis: Right Knee Osteoarthritis Post-Op Diagnosis: Right Knee Osteoarthritis I identified the patient and participated in the time-out.: Yes Procedure Operation Date: 05/27/19 07:00 Actual Procedures p Right Total Knee Arthroplasty(Right) - Erlin Alves MD Surgeon Erlin Alves MD Child Care Director Rajinder DAVIDSON PA-C Estimated Blood Loss 100 Findings Consistent with Post-Op Diagnosis Specimens bone and soft tissue Complications none Description of Procedure Please see Dr Alves operative report for full details. I was assistant chief nursing officer during entire case to include prepping, draping, limb and instrument handling, wound closure, dressings. I attest to the content of the Intraoperative Record and any orders documented therein. Any exceptions are noted below.
--- NOTE | 2019-05-27 10:43 | Anesthesiology Progress Note ---
Date of Service May 27, 2019 Anesthesia Post Procedure Vital Signs Vital Signs: Temp Pulse Pulse Resp BP Pulse Ox 05/27/19 10:35 69 17 129/66 94 05/27/19 10:25 72 18 136/66 95 05/27/19 10:15 78 24 126/65 96 05/27/19 10:07 36.6 C 80 13 117/56 L 92 05/27/19 05:33 36.7 C 73 20 132/66 95 Pain Intensity Lower Back: Pain Intensity: 1 Right Knee: Pain Intensity: 1 Transfer of Care Handoff Completed per policy Notes Mental Status: alert / awake / arousable Patient Amnestic to Procedure: Yes Nausea / Vomiting: adequately controlled Pain: adequately controlled Airway Patency, RR, SpO2: stable & adequate BP & HR: stable & adequate Hydration State: stable & adequate Neuraxial Anesthesia: was administered and sensory block is resolving Anesthetic Complications: no major complications apparent and Pt Satisfied with anesthetic care
--- NOTE | 2019-05-27 10:52 | XRay Report ---
XR knee RT 1 or 2V routine CLINICAL HISTORY: Postoperative study. DEGENERATIVE ARTHRITIS COMPARISON: 04/30/2019 DISCUSSION: There are postsurgical changes of a total right knee arthroplasty. No patella is visualiz ed. There are stable soft tissue calcifications within the anterolateral soft tissues. There are vasc ular calcifications present posteriorly. There is air present within the joint consistent with recent surgery. IMPRESSION: 1. Postsurgical changes of a total right knee arthroplasty 2. Absent patella Electronically signed by: Frank Montoya M.D. 05/27/2019 10:51 AM
[2019-05-27] MEDS ORDERED: HYDROCORTISONE HC 2.5% CRM 30GM TUBE EXT PRN (11:43)
--- NOTE | 2019-05-27 13:03 | Hospitalist Consultation ---
Date of Consultation May 27, 2019 History of Present Illness Attending Physician: Erlin Alves MD Allergies Allergy/AdvReac Type Severity Reaction Status Date / Time cefaclor Allergy Intermediate swelling Verified 05/27/19 05:23 aspirin Allergy Mild bleeding Verified 05/27/19 05:23 ulcer (tolerates 81mg) Home Medications Home Medications Medication Instructions Recorded Confirmed Type aspirin 81 mg PO QPM 05/01/19 05/27/19 History atorvastatin 80 mg PO PM 05/01/19 05/27/19 History diclofenac sodium [Voltaren] 4 g TOPICAL QID 05/01/19 05/27/19 History finasteride 5 mg PO QPM 05/01/19 05/27/19 History fluticasone propionate [Flonase 1 spray INTRANASAL DAILY 05/01/19 05/27/19 History Allergy Relief] gabapentin 100 mg PO TID 05/01/19 05/27/19 History lisinopril 5 mg PO QPM 05/01/19 05/27/19 History loratadine [Claritin] 10 mg PO DAILY PRN 05/01/19 05/27/19 History metoprolol tartrate 25 mg PO BID 05/01/19 05/27/19 History multivitamin 1 tab PO QAM 05/01/19 05/27/19 History nitroglycerin 0.4 mg SUBLINGUAL UD PRN 05/01/19 05/27/19 History omeprazole 20 mg PO BID 05/01/19 05/27/19 History oxycodone-acetaminophen 1 tab PO Q6H PRN 05/01/19 05/27/19 History ropinirole 0.5 mg PO HS 05/01/19 05/27/19 History sertraline 100 mg PO QPM 05/01/19 05/27/19 History tamsulosin 0.4 mg PO HS 05/01/19 05/27/19 History tolterodine [Detrol LA] 4 mg PO QPM 05/01/19 05/27/19 History trazodone 100 mg PO HS 05/01/19 05/27/19 History hydrocortisone [Proctosol HC] 1 applic HI QPM PRN 05/27/19 05/27/19 History Patient History Social History Preferred Language: Georgian Communication Ability: Effective Lamp Decorator Required: No Beliefs That Will Affect Care: None Current Living Situation: Alone Other Information That Helps Us Care for You: No Feels Safe at Home: Yes Safety Concerns: Feels Safe At This Time Smoking Status: Current every day smoker Tobacco Type: cigarettes ; Cigarettes Per Day: 1/4 ppd ; Do You Dip or Chew Tobacco: No ; Second Hand Exposure: Yes ; Tobacco Cessation Education Requested by Patient: No Hx Alcohol Use: No Hx Substance Use: No Results & Data Vital Signs (Past 12 Hours) Vital Signs Temp Pulse Pulse Resp BP Pulse Ox 05/27/19 12:08 66 16 151/68 H 96 05/27/19 11:45 36.5 C 67 16 132/67 95 05/27/19 11:18 36.4 C L 67 15 128/73 96 05/27/19 10:55 75 15 119/69 96 05/27/19 10:45 36.4 C L 66 22 139/58 L 95 05/27/19 10:35 69 17 129/66 94 05/27/19 10:25 72 18 136/66 95 05/27/19 10:15 78 24 126/65 96 05/27/19 10:07 36.6 C 80 13 117/56 L 92 05/27/19 05:33 36.7 C 73 20 132/66 95
[2019-05-27] MEDS: ACETAMINOPHEN 500 MG TAB PO SCH ×2 (13:30→22:09)
[2019-05-27] MEDS: GABAPENTIN 100 MG CAP PO SCH ×2 (13:30→22:07)
[2019-05-27] MEDS: SODIUM CHLORIDE 0.9% 1000ML 1,000 ML IV SCH ×2 (13:31→23:31)
--- NOTE | 2019-05-27 16:32 | Orthopedic Progress Note ---
Date of Service May 27, 2019 Assessment & Plan (1) Osteoarthritis of right knee: POD # 0 s/p R TKA, doing as well as expected. Resume diet. Continue pain control. PT/OT. WBAT RLE: use immobilizer for 48 hours max or until demonstrates good quad control, and walker. Medicine consult for medical management. DVT Prophylaxis: TEDs and foot pumps while in hospital, ASA BID for 6 weeks. D/C planning. Present on Admission?: Yes Subjective Expected pain right knee. Overall doing well. Review of Systems Review of Systems: All systems reviewed & are unremarkable except as noted in HPI & below Physical Exam Physical Exam: RLE: Dressing clean, dry, intact. Neurovascularly intact. Calf soft and non-tender. Results & Data Vital Signs (Past 12 Hours) Vital Signs Temp Pulse Pulse Resp BP Pulse Ox 05/27/19 15:15 36.4 C L 77 18 156/73 H 97 05/27/19 14:19 36.6 C 72 16 150/67 H 96 05/27/19 13:07 36.7 C 74 16 150/71 H 92 05/27/19 12:08 66 16 151/68 H 96 05/27/19 11:45 36.5 C 67 16 132/67 95 05/27/19 11:18 36.4 C L 67 15 128/73 96 05/27/19 10:55 75 15 119/69 96 05/27/19 10:45 36.4 C L 66 22 139/58 L 95 05/27/19 10:35 69 17 129/66 94 05/27/19 10:25 72 18 136/66 95 05/27/19 10:15 78 24 126/65 96 05/27/19 10:07 36.6 C 80 13 117/56 L 92 05/27/19 05:33 36.7 C 73 20 132/66 95 Diagnostic Findings AP & Lateral Right knee show expected findings following cemented right TKA, components in excellent position. o fracture or dislocation. Patient has a previous history of patellectomy.
--- NOTE | 2019-05-27 17:19 | Internal Medicine Consult Note ---
Date of Consultation May 27, 2019 Assessment & Plan (1) Status post total right knee replacement: POD # 0. Doing well postop. (2) CAD (coronary artery disease): Preoperative echocardiogram showed segmental wall motion abnormalities, overall EF 50-54%. No anginal symptoms. Resume aspirin when okay from surgical perspective. Continue metoprolol, lisinopril, statin. (3) Hypertension: Continue metoprolol and lisinopril with hold parameters. (4) Hyperlipidemia: Continue atorvastatin. (5) BPH (benign prostatic hyperplasia): Continue finasteride and tamsulosin. Monitor for postoperative urinary retention. (6) DVT prophylaxis: Per Ortho protocol. (7) Encounter for consultation: Thank you for this consultation. We will follow the patient with you during their hospital stay. My cell # is [phone]. You can reach a member of the [facility] Medicine Team 15/01 via pager @ [phone]. History of Present Illness Reason for Consultation: Consult for medical management Requesting Physician: Dr. Alves Attending Physician: Erlin Alves MD History of Present Illness 78-year-old male followed by Dr. Krystal Ferrera for Family Medicine. History of ischemic heart disease, hypertension, dyslipidemia, BPH, and other problems noted below. Right total knee arthroplasty performed today by Dr. Alves under MAC spinal regional anesthesia. Doing well postoperatively. No chest pain, cough, SOB, nausea, vomiting. Pain well-controlled. Allergies Allergy/AdvReac Type Severity Reaction Status Date / Time cefaclor Allergy Intermediate swelling Verified 05/27/19 05:23 aspirin Allergy Mild bleeding Verified 05/27/19 05:23 ulcer (tolerates 81mg) Home Medications Home Medications Medication Instructions Recorded Confirmed Type aspirin 81 mg PO QPM 05/01/19 05/27/19 History atorvastatin 80 mg PO PM 05/01/19 05/27/19 History diclofenac sodium [Voltaren] 4 g TOPICAL QID 05/01/19 05/27/19 History finasteride 5 mg PO QPM 05/01/19 05/27/19 History fluticasone propionate [Flonase 1 spray INTRANASAL DAILY 05/01/19 05/27/19 Hi story Allergy Relief] gabapentin 100 mg PO TID 05/01/19 05/27/19 History lisinopril 5 mg PO QPM 05/01/19 05/27/19 History loratadine [Claritin] 10 mg PO DAILY PRN 05/01/19 05/27/19 History metoprolol tartrate 25 mg PO BID 05/01/19 05/27/19 History multivitamin 1 tab PO QAM 05/01/19 05/27/19 History nitroglycerin 0.4 mg SUBLINGUAL UD PRN 05/01/19 05/27/19 History omeprazole 20 mg PO BID 05/01/19 05/27/19 History oxycodone-acetaminophen 1 tab PO Q6H PRN 05/01/19 05/27/19 History ropinirole 0.5 mg PO HS 05/01/19 05/27/19 History sertraline 100 mg PO QPM 05/01/19 05/27/19 History tamsulosin 0.4 mg PO HS 05/01/19 05/27/19 History tolterodine [Detrol LA] 4 mg PO QPM 05/01/19 05/27/19 History trazodone 100 mg PO HS 05/01/19 05/27/19 History hydrocortisone [Proctosol HC] 1 applic ND QPM PRN 05/27/19 05/27/19 History Patient History Medical History Anxiety BPH (benign prostatic hyperplasia) CAD (coronary artery disease) moderate, non-obstructive per 09/2018 cardiac cath, hx balloon angioplasty in 2007 per records Depression GERD (gastroesophageal reflux disease) controlled History of GI bleed + gastric ulcer KNIK (hard of hearing) Hyperlipidemia Hypertension Insomnia Obesity Osteoarthritis Poor historian Restless leg Sciatica Sleep apnea non compliant w/ cpap Spinal stenosis Valvular heart disease mild aortic stenosis per 09/2018 cardiac cath Surgical History History of cardiac cath 09/2018 - [facility] - CP - NO STENTS 2010 - [facility] - NO STENTS 2007 - BALLOON ANGIOPLASTY LAD PER MEDICAL RECORD 2000 - [facility] - NO STENTS History of cataract surgery History of cholecystectomy History of colonoscopy History of esophagogastroduodenoscopy (EGD) History of right knee surgery x 2 History of tonsillectomy and adenoidectomy Family History (Updated 05/27/19 @ 22:59 by Nando Ann MD) Mother Heart disease Leukemia Father Lung cancer Brother Cancer Social History Preferred Language: Syriac Communication Ability: Effective Animal Sticker Required: No Beliefs That Will Affect Care: None Current Living Situation: Alone Other Information That Helps Us Care for You: No Feels Safe at Home: Yes Safety Concerns: Feels Safe At This Time Smoking Status: Current every day smoker Tobacco Type: cigarettes ; Cigarettes Per Day: 1/4 ppd ; Do You Dip or Chew Tobacco: No ; Second Hand Exposure: Yes ; Tobacco Cessation Education Requested by Patient: No Hx Alcohol Use: No Hx Substance Use: No Review of Systems Constitutional: no fever and no weight loss Ear, Nose, Mouth, Throat: + post nasal drip Respiratory: + cough (cough from postnasal drainage); no dyspnea Cardiovascular: no chest pain and no edema Gastrointestinal: + diarrhea/loose stools; no nausea, no vomiting and no blood in stools Genitourinary: + urinary hesitancy and + urinary urgency; no dysuria and no hematuria Musculoskeletal: + joint pain Hematologic / Lymphatic: + easy bruising Physical Exam Constitutional: WD/WN, vitals as above no acute distress Eyes: PERRL, conjunctivae normal, anicteric sclerae ENMT: external ear and nose normal, oropharynx normal Mouth: + edentulous Neck: trachea midline, no thyromegaly Respiratory: normal respiratory effort, lungs clear to auscultation Cardiovascular: Rate/Rhythm: regular rate Heart Sounds: + murmur (II/ systolic murmur at base); no gallop and no cardiac rub Vessels: no JVD Extremities: no calf tenderness and no edema Gastrointestinal (Abdomen): normal bowel sounds, soft, nontender, no hepatosplenomegaly Musculoskeletal: Head/Neck/Chest: neck supple Extremities: no cyanosis and no clubbing Knee: + knee abnormal to inspection (right knee wrapped with elastic bandage) Skin: no rashes, warm and dry Neurologic: PERRL, EOMI no facial palsy no dysarthria or aphasia Psychiatric: Orientation: alert and oriented x 3 Affect: euthymic affect Lymphatic: no cervical lymphadenopathy Results & Data Vital Signs (Past 12 Hours) Vital Signs Temp Pulse Pulse Resp BP Pulse Ox 05/27/19 15:15 36.4 C L 77 18 156/73 H 97 05/27/19 14:19 36.6 C 72 16 150/67 H 96 05/27/19 13:07 36.7 C 74 16 150/71 H 92 05/27/19 12:08 66 16 151/68 H 96 05/27/19 11:45 36.5 C 67 16 132/67 95 05/27/19 11:18 36.4 C L 67 15 128/73 96 05/27/19 10:55 75 15 119/69 96 05/27/19 10:45 36.4 C L 66 22 139/58 L 95 05/27/19 10:35 69 17 129/66 94 05/27/19 10:25 72 18 136/66 95 05/27/19 10:15 78 24 126/65 96 05/27/19 10:07 36.6 C 80 13 117/56 L 92 05/27/19 05:33 36.7 C 73 20 132/66 95 Laboratory Results Preoperative labs were done on 05/02/2019. Hemoglobin 13.4, white count 6880, platelet count 191,000. PT, INR, PTT normal. Normal electrolytes, BUN 16, creatinine 1.07, glucose 147. Diagnostic Findings Echocardiogram performed at [facility] on 05/13/2019 demonstrated mild concentric LVH, mid inferior wall hypokinesis, posterior wall hypokinesis, overall LVEF 50-54%, moderate calcification of aortic valve with moderate aortic stenosis and moderate aortic regurgitation, mild mitral regurgitation. ECG Additional Comments: EKG performed 05/15/2019 reviewed and demonstrated normal sinus rhythm at 84/minute, possible age-indeterminate septal infarct, T wave inversions inferiorly and laterally.
[2019-05-27] MEDS: FERROUS GLUCONATE 324 MG TAB PO SCH (17:27)
[2019-05-27] MEDS: CHECK SCOPOLAMINE PATCH PLACEMENT SCH ×2 (17:27→23:31)
[2019-05-27] MEDS: CEFAZOLIN 2000MG 2,000 MG/15 ML SYR IV SCH ×2 (17:27→23:30)
[2019-05-27] MEDS: ASCORBIC ACID 500 MG TAB PO SCH (17:27)
[2019-05-27] MEDS ORDERED: SENNA 8.6 MG TAB PO SCH (21:00)
[2019-05-27] MEDS ORDERED: ROPINIROLE HCL 0.25 MG TABLET PO SCH (21:00)
[2019-05-27] MEDS ORDERED: SERTRALINE HCL 100 MG TABLET PO SCH (21:00)
[2019-05-27] MEDS ORDERED: FINASTERIDE 5 MG TAB PO SCH (21:00)
[2019-05-27] MEDS ORDERED: TOLTERODINE TARTRATE LA 4 MG CAPCR PO SCH (21:00)
[2019-05-27] MEDS ORDERED: ATORVASTATIN 40 MG TAB PO SCH (21:00)
[2019-05-27] MEDS ORDERED: LISINOPRIL 5 MG TAB PO SCH (21:00)
[2019-05-27] MEDS ORDERED: TAMSULOSIN HCL 0.4 MG CAP PO SCH (21:00)
[2019-05-27] MEDS ORDERED: TRAZODONE HCL 100 MG TAB PO SCH (21:00)
[2019-05-27] MEDS: OXYCODONE HCL IR 5 MG TAB (IMMEDIATE RELEASE) PO PRN (21:43)
[2019-05-27] MEDS: DOCUSATE SODIUM 100 MG CAP PO SCH (22:06)
[2019-05-27] MEDS: PANTOprazole 40 MG TAB PO SCH (22:06)
[2019-05-27] MEDS: ASPIRIN 81 MG ECTAB PO SCH (22:08)
[2019-05-27] MEDS: METOPROLOL TARTRATE 25 MG TAB PO SCH (22:08)
[2019-05-28] MEDS: OXYCODONE HCL IR 5 MG TAB (IMMEDIATE RELEASE) PO PRN ×2 (03:46→07:50)
[2019-05-28] MEDS: ACETAMINOPHEN 500 MG TAB PO SCH ×2 (06:10→13:11)
[2019-05-28 07:46] LABS: Hematocrit (blood only) 30.6 % (42-52); Hemoglobin 10.6 g/dL (14.0-18.0); Mean Corpuscular Hemoglobin 31.3 pg (25-34); Mean Corpuscular Hgb Conc 34.6 g/dL (32-36); Mean Corpuscular Volume 90.3 fL (80-100); Mean Platelet Volume 10.3 fL (7.4-10.4); Platelet Count 166 K/uL (130-400); RDW Coefficient of Variation 14.5 % (11.5-14.5); RDW Standard Deviation 47.9 fL (36.4-46.3); Red Blood Count 3.39 M/uL (4.7-6.1); White Blood Count 11.46 K/uL (4.8-10.8)
[2019-05-28] MEDS: ASPIRIN 81 MG ECTAB PO SCH (07:51)
[2019-05-28] MEDS: METOPROLOL TARTRATE 25 MG TAB PO SCH (07:51)
[2019-05-28] MEDS: GABAPENTIN 100 MG CAP PO SCH ×2 (07:52→13:11)
[2019-05-28] MEDS: FERROUS GLUCONATE 324 MG TAB PO SCH (07:52)
[2019-05-28] MEDS: PANTOprazole 40 MG TAB PO SCH (07:52)
[2019-05-28] MEDS: DOCUSATE SODIUM 100 MG CAP PO SCH (07:52)
[2019-05-28] MEDS: ASCORBIC ACID 500 MG TAB PO SCH (07:52)
--- NOTE | 2019-05-28 08:11 | Anesthesiology Progress Note ---
Date of Service May 28, 2019 Anesthesia Post Procedure Vital Signs Vital Signs: Temp Pulse Pulse Pulse Pulse Resp BP 05/28/19 08:02 36.7 C 65 13 130/70 05/28/19 03:41 36.7 C 65 16 122/62 05/27/19 23:21 36.4 C L 65 16 159/62 H 05/27/19 19:50 36.6 C 70 18 158/88 H 05/27/19 15:15 36.4 C L 77 18 156/73 H 05/27/19 14:19 36.6 C 72 16 150/67 H 05/27/19 13:07 36.7 C 74 16 150/71 H 05/27/19 12:08 66 16 151/68 H 05/27/19 11:45 36.5 C 67 16 132/67 05/27/19 11:18 36.4 C L 67 15 128/73 05/27/19 10:55 75 15 119/69 05/27/19 10:45 36.4 C L 66 22 139/58 L 05/27/19 10:35 69 17 129/66 05/27/19 10:25 72 18 136/66 05/27/19 10:15 78 24 126/65 05/27/19 10:07 36.6 C 80 13 117/56 L Pulse Ox 05/28/19 08:02 92 05/28/19 03:41 94 05/27/19 23:21 94 05/27/19 19:50 96 05/27/19 15:15 97 05/27/19 14:19 96 05/27/19 13:07 92 05/27/19 12:08 96 05/27/19 11:45 95 05/27/19 11:18 96 05/27/19 10:55 96 05/27/19 10:45 95 05/27/19 10:35 94 05/27/19 10:25 95 05/27/19 10:15 96 05/27/19 10:07 92 Pain Intensity Lower Back: Pain Intensity: 1 Right Knee: Pain Intensity: 3 Notes Mental Status: alert / awake / arousable and participated in evaluation Patient Amnestic to Procedure: Yes Nausea / Vomiting: adequately controlled Pain: adequately controlled Airway Patency, RR, SpO2: stable & adequate BP & HR: stable & adequate Hydration State: stable & adequate Neuraxial Anesthesia: was administered and sensory block resolved Anesthetic Complications: no major complications apparent and Pt Satisfied with anesthetic care
[2019-05-28 08:14] LABS: BUN Creatinine Ratio 15.9 (10-20); Calcium 8.5 mg/dl (8.5-10.1); Creatinine Clr Calc Pharmacy 53.9 ml/min; Est GFR (African American) 65.2; Est GFR (Non-African American) 56.3; Potassium 3.6 mmol/L (3.5-5.1)
--- NOTE | 2019-05-28 08:36 | Orthopedic Progress Note ---
Date of Service May 28, 2019 Assessment & Plan (1) Osteoarthritis of right knee: POD # 1 s/p R TKA, doing as well as expected. Resume diet. Continue pain control. PT/OT. WBAT RLE: use immobilizer for 48 hours max or until demonstrates good quad control, and walker. May sit without immobilizer. Medicine consult for medical management. DVT Prophylaxis: TEDs and foot pumps while in hospital, ASA BID for 6 weeks. Will change dressing to Silverlon POD #2 or prior to d/c. D/C planning. Subjective Feeling pretty good. Sciatic symptoms are bothering more than right knee. Review of Systems Review of Systems: All systems reviewed & are unremarkable except as noted in HPI & below Physical Exam Physical Exam: Sitting comfortably eating brakfast. LLE: dressing clean, dry, intact. Neuro unchanged. Results & Data Vital Signs (Past 12 Hours) Vital Signs Temp Pulse Pulse Resp BP Pulse Ox 05/28/19 08:02 36.7 C 65 13 130/70 92 05/28/19 03:41 36.7 C 65 16 122/62 94 05/27/19 23:21 36.4 C L 65 16 159/62 H 94 Laboratory Results 05/28/19 05/28/19 Range/Units 07:01 07:01 WBC 11.46 H (4.8-10.8) K/uL RBC 3.39 L (4.7-6.1) M/uL Hgb 10.6 L (14.0-18.0) g/dL Hct 30.6 L (42-52) % MCV 90.3 (80-100) fL MCH 31.3 (25-34) pg MCHC 34.6 (32-36) g/dL RDW Std Deviation 47.9 H (36.4-46.3) fL RDW Coeff of Deborah 14.5 (11.5-14.5) % Plt Count 166 (130-400) K/uL MPV 10.3 (7.4-10.4) fL Sodium 137 (136-145) mmol/L Potassium 3.6 (3.5-5.1) mmol/L Chloride 107 (98-107) mmol/L Carbon Dioxide 25 (21-32) mmol/L Anion Gap 5.0 (3-11) BUN 20 H (7-18) mg/dl Creatinine 1.23 (0.6-1.4) mg/dl Est Cr Clr Drug Dosing 53.9 ml/min Est GFR ( Amer) 65.2 Est GFR (Non-Af Amer) 56.3 BUN/Creatinine Ratio 15.9 (10-20) Glucose 140 H (70-99) mg/dl Calcium 8.5 (8.5-10.1) mg/dl
[2019-05-28] MEDS ORDERED: FLUTICASONE PROPIONATE NA SPR 16 GM BTL SCH (09:00)
[2019-05-28] MEDS ORDERED: MULTIVITAMIN TAB PO SCH ×2 (09:00)
--- NOTE | 2019-05-29 20:09 | Discharge Summary ---
ADMITTING DIAGNOSIS: Right knee osteoarthritis. DISCHARGE DIAGNOSIS: Right knee osteoarthritis. CONDITION ON DISCHARGE: Stable. PROCEDURE PERFORMED: Status post right total knee arthroplasty on 05/27/[address] Alves. CONSULTATIONS: Anesthesia, medicine. HOSPITAL COURSE: A 78-year-old male admitted to [facility] status post right total knee arthroplasty on 05/27/2019 with spinal anesthetic and a femoral nerve block. The patient tolerated surgery without complication. He was admitted to the med/surg floor. Postoperative day zero, able to tolerate a regular diet, received in house physical therapy. Initially did have loose stools that improved throughout the hospital stay. The patient continued to receive IV and p.o. pain medication throughout the night. Postop day 1, labs were performed and within normal limits. Some mild postop anemia with hemoglobin at 10.6. The patient is asymptomatic. The patient tolerating p.o. fluids. IV fluids were discontinued. The patient tolerating p.o. pain medication, p.o. diet, able to void. DVT prophylaxis included TAVO hose and foot pumps during his hospital stay. Oral DVT prophylaxis included aspirin 81 mg b.i.d., which on postop day 1 was given. The patient met with social work and would like to go home with home health physical therapy. Dr. Alves met with the patient on postop day 1 in the morning. He was hoping to go home later that day. He was then rounded on in the early afternoon around lunchtime after receiving a round of physical therapy and would like to proceed with discharge. DISCHARGE INSTRUCTIONS AND MEDICATIONS: The patient was discharged to home where he lives by himself with a granddaughter nearby. He was discharged on a regular diet. Weightbear as tolerated to the right lower extremity with knee immobilizer for another 24 hours with mobility for a total of 48 hours while ambulating. He also has a walker. Dressing was changed to a Silverlon dressing, which will remain on for 14 days until followup. This is waterproof. The patient will continue with bilateral lower extremity TAVO hose when he is up and about. He can remove to bathe and at night. DVT prophylaxis will also include 81 mg aspirin twice a day. The patient was discharged on medications to include [id number] Tylenol 1000 mg every 8 hours, aspirin 81 mg b.i.d. x6 weeks, vitamin C 500 mg b.i.d. x2 weeks, ferrous sulfate 324 mg b.i.d. x2 weeks, oxycodone 5 mg 1-2 tablets every 6 hours p.r.n. pain, dispensed #30 tablets with zero refills. These were all e-prescribed to his pharmacy. The patient is scheduled to follow up at our office on 06/11/2019 at 11:15 a.m. He was advised otherwise to call if he has any further problems, questions, or concerns. Our number is [phone]. MTDD
== END 2019-05-28 16:00 | disposition home health service (06) | DRG 470 ==
LOC: ASU 04:43 → 3E 10:20

== ENCOUNTER 2019-06-02 15:17 | Observation (INO) ==
[2019-06-02 17:04] LABS: Basophils # (auto) 0.04 K/uL (0-0.2); Basophils % (auto) 0.4 %; Eosinophils # (auto) 0.15 K/uL (0-0.5); Eosinophils % (auto) 1.6 %; Hematocrit (blood only) 36.2 % (42-52); Hemoglobin 12.4 g/dL (14.0-18.0); Immature Granulocytes # (auto) 0.04 K/uL (0.00-0.02); Immature Granulocytes % (auto) 0.4 %; Lymphocytes # (auto) 1.57 K/uL (1.2-3.4); Mean Corpuscular Hemoglobin 31.2 pg (25-34); Mean Corpuscular Hgb Conc 34.3 g/dL (32-36); Mean Corpuscular Volume 91.2 fL (80-100); Mean Platelet Volume 9.7 fL (7.4-10.4); Monocytes # (auto) 0.69 K/uL (0.11-0.59); Monocytes % (auto) 7.5 %; Neutrophils # (auto) 6.74 K/uL (1.4-6.5); Neutrophils % (auto) 73.1 %; Platelet Count 269 K/uL (130-400); RDW Coefficient of Variation 14.6 % (11.5-14.5); RDW Standard Deviation 48.3 fL (36.4-46.3); Red Blood Count 3.97 M/uL (4.7-6.1); White Blood Count 9.23 K/uL (4.8-10.8)
[2019-06-02] MEDS ORDERED: OXYCODONE HCL IR 5 MG TAB (IMMEDIATE RELEASE) PO STA (17:10)
--- NOTE | 2019-06-02 17:10 | XRay Report ---
XR chest 1V portable CLINICAL HISTORY: Dyspnea COMPARISON STUDY: 05/05/2017 FINDINGS: The heart is mildly enlarged. There is mild basilar interstitial prominence similar to the prior study, and likely chronic. There is no overt failure. There is no lobar consolidation. There ar e no pleural effusions.[ IMPRESSION: Mild cardiomegaly and stable mild basilar interstitial thickening. No acute findings. Electronically signed by: Frank Montoya M.D. 06/02/2019 5:09 PM
[2019-06-02 17:20] LABS: Partial Thromboplastin Time 25.8 Seconds (21.0-31.0); Prothrombin Time 10.3 Seconds (9.0-12.0)
[2019-06-02 17:21] LABS: Albumin Level 3.7 gm/dl (3.4-5.0); BUN Creatinine Ratio 11.4 (10-20); Calcium 9.5 mg/dl (8.5-10.1); Creatinine Clr Calc Pharmacy 66.9 ml/min; Est GFR (African American) 84.8; Est GFR (Non-African American) 73.2; Potassium 3.7 mmol/L (3.5-5.1)
[2019-06-02 17:29] LABS: Albumin Globulin Ratio 0.8 (0.9-2); Bilirubin,Total 0.6 mg/dl (0.2-1); Globulin 4.4 gm/dl (2.5-4.0); Total Protein 8.1 gm/dl (6.4-8.2); Troponin I 0.124 ng/ml (0-0.045)
[2019-06-02 17:52] LABS: Influenza A virus by PCR Neg for Influ A (Neg); Influenza B virus by PCR Neg for Influ B (Neg)
[2019-06-02 18:13] LABS: Appearance Urine Clear (Clear); Bacteria Urine Automated Negative (Negative); Bilirubin Urine Negative (Negative); Blood Urine Trace (Negative); Cast Urine Automated 0 /lpf (0-5); Color Urine Yellow; Glucose Urine UA Negative (Negative); Ketones Urine Negative (Negative); Leukocyte Esterase Urine 1+ (Negative); Nitrite Urine Negative (Negative); Specific Gravity Urine 1.011 (1.000-1.030); Urobilinogen Urine Negative (Negative)
[2019-06-02 18:22] LABS: Protein Urine Negative (Negative); Sulfosalicylic Acid Urine Negative (Negative)
[2019-06-02] MEDS ORDERED: OPTIRAY 320 125ml IV PRN (18:37)
--- NOTE | 2019-06-02 18:49 | CT Scan Report ---
CT ANGIOGRAM OF THE CHEST CLINICAL HISTORY: Dyspnea POSSIBLE PULMONARY EMBOLISM COMPARISON STUDY: 01/05/2011, chest x-ray dated 06/02/2019 TECHNIQUE: Following the IV administration of 115 mL of Optiray-320, CT angiogram of the thorax was p erformed from the thoracic inlet to the lung bases utilizing the pulmonary embolus protocol. Images a re reviewed in the axial, sagittal, and coronal planes. IV contrast was administered without complica tion. MIP imaging was performed. A dose lowering technique was utilized adhering to the principles o f ALARA. CT DOSE: 642.38 mGy.cm FINDINGS: No pathologically enlarged axillary mediastinal or hilar lymph nodes were visualized. There is mild ectasia of the ascending thoracic aorta which measures 38 mm at the level of the main p ulmonary artery. Atheromatous changes are present within the distal descending thoracic aorta. There were no pulmonary artery filling defects to indicate acute pulmonary embolism. No pleural effusions are visualized. There are minor dependent atelectatic changes. There are no areas of focal parenchymal consolidation to indicate a pneumonia. There are coronary artery calcifications. IMPRESSION: 1. No acute intrathoracic findings 2. No evidence of acute pulmonary embolism 3. No evidence of focal pulmonary consolidation Electronically signed by: Frank Montoya M.D. 06/02/2019 6:47 PM
[2019-06-02] MEDS ORDERED: NITROGLYCERIN 2% OINTMENT 30GM TUBE EXT SCH (19:15)
[2019-06-02] MEDS ORDERED: METOPROLOL TARTRATE 25 MG TAB PO STA (19:19)
[2019-06-02] MEDS ORDERED: ACETAMINOPHEN 325 MG TAB PO STA (20:13)
--- NOTE | 2019-06-02 20:35 | CT Scan Report ---
CT head/brain wo con CLINICAL HISTORY: Severe headache. COMPARISON STUDY: No previous studies for comparison. TECHNIQUE: Axial CT of the brain is performed from the vertex to the skull base. IV contrast was not administered for this examination. A dose lowering technique was utilized adhering to the principles of ALARA. CT DOSE: 1949.28 mGycm FINDINGS: No intra or extra-axial mass lesions are visualized. There is no CT evidence of acute cortical infarc tion. There is no evidence of midline shift. There is no acute hemorrhage. No calvarial fractures ar e visualized. There are patchy white matter hypodensities likely on a small vessel basis. There is no evidence of pathologic ventricular dilatation. There is minimal paranasal sinus mucosal thickening. There is no evidence of acute sinusitis. There are tiny incidental parafalcine lipomas. The contrast appears enhanced, secondary to a CT scan of the chest performed earlier in the evening IMPRESSION: No acute intracranial findings Electronically signed by: Frank Montoya M.D. 06/02/2019 8:34 PM
--- NOTE | 2019-06-02 20:38 | History & Physical Report ---
Date of Service June 02, 2019 Assessment & Plan (1) Uncontrolled hypertension: Unclear precipitant Troponin elevation secondary to above hx CAD status post stent hyperlipidemia COPD, ongoing tobacco abuse, no acute lung issues past alcohol abuse Recent right knee surgery, no issues as per patient Hyperglycemia, likely prediabetes, hemoglobin A1c of 6.26 April 2019 OBS PCU Facilitate home BP meds, may need titration Follow troponin, TTE if with progression PT OT eval nicotine patch PRN DVT Prophylaxis. Aspirin BID as per postop orthopedic rx Full code History of Present Illness Chief Complaint: Feeling woozy Primary Care Provider: Salas Gibbons, History obtained from patient, family, and records. Medical history significant for CAD, hypertension, hyperlipidemia, COPD, ongoing tobacco abuse, past alcohol abuse. Recent confinement last week under orthopedic service for elective right knee surgery for osteoarthritis. Patient discharged on aspirin 81 mg twice daily 6-week course for DVT prophylaxis. Last night, patient noted symptoms of wooziness, not feeling right. Achy headache symptoms. Usual sinus congestion. No chest pain, S OB. Tolerable right knee discomfort. Does not check blood pressure at home. Compliant with home meds. Denies dietary indiscretion. No unusual stress. 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 Allergies Allergy/AdvReac Type Severity Reaction Status Date / Time cefaclor Allergy Intermediate swelling Verified 06/02/19 19:47 aspirin Allergy Mild bleeding Verified 06/02/19 19:47 ulcer (tolerates 81mg) Home Medications Home Medications Medication Instructions Recorded Confirmed Type atorvastatin 80 mg PO PM 05/01/19 06/02/19 History finasteride 5 mg PO QPM 05/01/19 06/02/19 History fluticasone propionate [Flonase 1 spray INTRANASAL DAILY 05/01/19 06/02/19 History Allergy Relief] gabapentin 100 mg PO TID 05/01/19 06/02/19 History lisinopril 5 mg PO QPM 05/01/19 06/02/19 History loratadine [Claritin] 10 mg PO DAILY PRN 05/01/19 06/02/19 History metoprolol tartrate 25 mg PO BID 05/01/19 06/02/19 History multivitamin 1 tab PO QAM 05/01/19 06/02/19 History nitroglycerin 0.4 mg SUBLINGUAL UD PRN 05/01/19 06/02/19 History omeprazole 20 mg PO BID 05/01/19 06/02/19 History ropinirole 0.5 mg PO HS 05/01/19 06/02/19 History sertraline 100 mg PO QPM 05/01/19 06/02/19 History tamsulosin 0.4 mg PO HS 05/01/19 06/02/19 History tolterodine [Detrol LA] 4 mg PO QPM 05/01/19 06/02/19 History trazodone 100 mg PO HS 05/01/19 06/02/19 History hydrocortisone [Proctosol HC] 1 applic MI QPM PRN 05/27/19 06/02/19 History acetaminophen [Tylenol Extra 1,000 mg PO Q8 PRN #60 tab 05/28/19 06/02/19 Rx Strength] ascorbic acid (vitamin C) [Vitamin 500 mg PO BIDM 14 Days #28 tab 05/28/19 06/02/19 Rx C] aspirin [Ecotrin Low Strength] 81 mg PO BID 45 Days #90 tab 05/28/19 06/02/19 Rx ferrous gluconate 324 mg PO BIDM 14 Days #28 tab 05/28/19 06/02/19 Rx oxycodone 5 - 10 mg PO Q4H PRN #30 tab 05/28/19 06/02/19 Rx celecoxib 200 mg PO BID 06/02/19 06/02/19 History oxycodone-acetaminophen 1 tab PO Q6H PRN 06/02/19 06/02/19 History Past Med/Surg History Medical History Anxiety BPH (benign prostatic hyperplasia) CAD (coronary artery disease) moderate, non-obstructive per 09/2018 cardiac cath, hx balloon angioplasty in 2007 per records Depression GERD (gastroesophageal reflux disease) controlled History of GI bleed + gastric ulcer FALSE PASS (hard of hearing) Hyperlipidemia Hypertension Insomnia Obesity Osteoarthritis Poor historian Restless leg Sciatica Sleep apnea non compliant w/ cpap Spinal stenosis Valvular heart disease mild aortic stenosis per 09/2018 cardiac cath Surgical History History of cardiac cath 09/2018 - [facility] - CP - NO STENTS 2010 - [facility] - NO STENTS 2007 - BALLOON ANGIOPLASTY LAD PER MEDICAL RECORD 2000 - [facility] - NO STENTS History of cataract surgery History of cholecystectomy History of colonoscopy History of esophagogastroduodenoscopy (EGD) History of right knee surgery x 2 History of tonsillectomy and adenoidectomy Status post total right knee replacement Family History Mother Heart disease Leukemia Father Lung cancer Brother Cancer Social History Preferred Language: Icelandic Communication Ability: Effective Sustainability Engineer Required: No Beliefs That Will Affect Care: None marital status: / Current Living Situation: Alone Current Living Situation Comment: Lives in apartment Other Information That Helps Us Care for You: No Feels Safe at Home: Yes Safety Concerns: Feels Safe At This Time Smoking Status: Current every day smoker Tobacco Type: cigarettes ; Cigarettes Per Day: 5 ; Second Hand Exposure: Yes ; Tobacco Cessation Education Requested by Patient: No Hx Alcohol Use: No Hx Substance Use: Yes (post-op pain medication) substance use type: painkillers Last Used Substance: Hours (ago) Review of Systems Review of Systems: As per HPI, all 10 systems reviewed, all other ROS negative Physical Exam Physical Exam: GENERAL: Slightly anxious and comfortable, episodic jerking in pain (chronic as per family), no respiratory distress, slightly hard of hearing, somewhat restless, obese SKIN: Pallor , warm HEENT: Pale palpebral conjunctivae, chronic ptosis, moist buccal mucosa NECK : Supple, short neck, no tenderness CHEST : Decreased breath sounds, no tenderness HEART : RRR, no obvious murmurs ABDOMEN: Some distention, nontender EXTREMITIES : Minimal RLE swelling/tenderness, no other conspicuous deformities noted NEUROLOGIC : Coherent, slightly hard of hearing, no facial asymmetry, episodic jerking in pain (chronic as per family), no other gross focality Results & Data Vital Signs (Past 12 Hours) Vital Signs Temp Pulse Pulse Resp BP BP Pulse Ox 06/02/19 18:12 98 H 21 181/96 H 95 06/02/19 17:10 97 H 16 93 06/02/19 17:01 88 14 93 06/02/19 17:00 86 23 183/84 H 94 06/02/19 16:53 83 17 93 06/02/19 16:49 86 16 168/81 H 92 06/02/19 15:36 36.8 C 90 20 170/88 H 96 Laboratory Results Laboratory Results WBC 9.23 K/uL (4.8-10.8) 06/02/19 16:34 RBC 3.97 M/uL (4.7-6.1) L 06/02/19 16:34 Hgb 12.4 g/dL (14.0-18.0) L 06/02/19 16:34 Hct 36.2 % (42-52) L 06/02/19 16:34 MCV 91.2 fL (80-100) 06/02/19 16:34 MCH 31.2 pg (25-34) 06/02/19 16:34 MCHC 34.3 g/dL (32-36) 06/02/19 16:34 RDW Std Deviation 48.3 fL (36.4-46.3) H 06/02/19 16:34 RDW Coeff of Deborah 14.6 % (11.5-14.5) H 06/02/19 16:34 Plt Count 269 K/uL (130-400) 06/02/19 16:34 MPV 9.7 fL (7.4-10.4) 06/02/19 16:34 Immature Gran % (Auto) 0.4 % 06/02/19 16:34 Neut % (Auto) 73.1 % 06/02/19 16:34 Lymph % (Auto) 17.0 % 06/02/19 16:34 Clare % (Auto) 7.5 % 06/02/19 16:34 Eos % (Auto) 1.6 % 06/02/19 16:34 Baso % (Auto) 0.4 % 06/02/19 16:34 Immature Gran # (Auto) 0.04 K/uL (0.00-0.02) H 06/02/19 16:34 Neut # (Auto) 6.74 K/uL (1.4-6.5) H 06/02/19 16:34 Lymph # (Auto) 1.57 K/uL (1.2-3.4) 06/02/19 16:34 Clare # (Auto) 0.69 K/uL (0.11-0.59) H 06/02/19 16:34 Eos # (Auto) 0.15 K/uL (0-0.5) 06/02/19 16:34 Baso # (Auto) 0.04 K/uL (0-0.2) 06/02/19 16:34 PT 10.3 Seconds (9.0-12.0) 06/02/19 16:34 INR 1.0 (0.9-1.1) 06/02/19 16:34 APTT 25.8 Seconds (21.0-31.0) 06/02/19 16:34 PTT Ratio 1.0 06/02/19 16:34 Sodium 137 mmol/L (136-145) 06/02/19 16:34 Potassium 3.7 mmol/L (3.5-5.1) 06/02/19 16:34 Chloride 103 mmol/L (98-107) 06/02/19 16:34 Carbon Dioxide 28 mmol/L (21-32) 06/02/19 16:34 Anion Gap 6.0 (3-11) 06/02/19 16:34 BUN 11 mg/dl (7-18) 06/02/19 16:34 Creatinine 0.99 mg/dl (0.6-1.4) 06/02/19 16:34 Est Cr Clr Drug Dosing 66.9 ml/min 06/02/19 16:34 Est GFR ( Amer) 84.8 06/02/19 16:34 Est GFR (Non-Af Amer) 73.2 06/02/19 16:34 BUN/Creatinine Ratio 11.4 (10-20) 06/02/19 16:34 Glucose 122 mg/dl (70-99) H 06/02/19 16:34 Calcium 9.5 mg/dl (8.5-10.1) 06/02/19 16:34 Total Bilirubin 0.6 mg/dl (0.2-1) 06/02/19 16:34 AST 33 U/L (15-37) 06/02/19 16:34 ALT 24 U/L (12-78) 06/02/19 16:34 Alkaline Phosphatase 81 U/L (45-117) 06/02/19 16:34 Troponin I 0.124 ng/ml (0-0.045) H* 06/02/19 16:34 Total Protein 8.1 gm/dl (6.4-8.2) 06/02/19 16:34 Albumin 3.7 gm/dl (3.4-5.0) 06/02/19 16:34 Globulin 4.4 gm/dl (2.5-4.0) H 06/02/19 16:34 Albumin/Globulin Ratio 0.8 (0.9-2) L 06/02/19 16:34 Urine Color Yellow 06/02/19 17:21 Urine Appearance Clear (Clear) 06/02/19 17:21 Urine pH 8.0 (4.5-7.5) H 06/02/19 17:21 Ur Specific [place] 1.011 (1.000-1.030) 06/02/19 17:21 Urine Protein Negative (Negative) 06/02/19 17:21 Urine Glucose (UA) Negative (Negative) 06/02/19 17:21 Urine Ketones Negative (Negative) 06/02/19 17:21 Urine Blood Trace (Negative) H 06/02/19 17:21 Urine Nitrite Negative (Negative) 06/02/19 17:21 Urine Bilirubin Negative (Negative) 06/02/19 17:21 Urine Urobilinogen Negative (Negative) 06/02/19 17:21 Ur Leukocyte Esterase 1+ (Negative) H 06/02/19 17:21 Urine WBC (Auto) 1-5 /hpf (0-5) 06/02/19 17:21 Urine RBC (Auto) 5-10 /hpf (0-4) H 06/02/19 17:21 U Hyaline Cast (Auto) 0 /lpf (0-5) 06/02/19 17:21 U Epithel Cells (Auto) 10-20 /lpf (0-5) H 06/02/19 17:21 Urine Bacteria (Auto) Negative (Negative) 06/02/19 17:21 Influenza Type A (PCR) Neg for Influ A (Neg) 06/02/19 16:54 Influenza Type B (PCR) Neg for Influ B (Neg) 06/02/19 16:[address] head: No acute intracranial findings CT chest angio: 1. No acute intrathoracic findings 2. No evidence of acute pulmonary embolism 3. No evidence of focal pulmonary consolidation. EKG as per my interpretation : rate 85, NSR, LAD, LAFB, 1 AVB, LVH, MI WP
[2019-06-02] MEDS ORDERED: lisinopriL 5 MG TAB PO SCH (20:45)
[2019-06-02 21:06] LABS: Magnesium 1.5 mg/dl (1.8-2.4); Thyroid Stimulating Hormone 0.721 uIu/ml (0.300-4.500)
[2019-06-02] MEDS ORDERED: NSS + 20MEQ KCL 20 MEQ/1,000 ML BAG IV ONE (22:05)
[2019-06-02] MEDS ORDERED: ACETAMINOPHEN 325 MG TAB PO PRN (22:05)
[2019-06-02] MEDS ORDERED: LORATADINE 10 MG TAB PO PRN (22:05)
[2019-06-02] MEDS ORDERED: NITROGLYCERIN SL 0.4 MG/TAB TAB SL PRN (22:05)
[2019-06-02] MEDS ORDERED: LORazepam 0.25 MG/0.5 ML VIAL IV PRN (22:05)
[2019-06-02] MEDS ORDERED: MoRPHine SULFATE 4 MG/ML 1 ML CARP\\VIAL IV PRN (22:05)
[2019-06-02] MEDS ORDERED: ATORVASTATIN 40 MG TAB PO SCH (22:05)
[2019-06-02] MEDS ORDERED: FINASTERIDE 5 MG TAB PO SCH (22:05)
[2019-06-02] MEDS ORDERED: PROMETHAZINE HCL 12.5 MG in SODIUM CHLORIDE 0.9% 50 ML IV PRN (22:05)
--- NOTE | 2019-06-02 22:26 | Emergency Department Note ---
Entered by Cornelia John acting as a scribe for Jamison Palacios DO History of Present Illness General Chief complaint: Shortness of Breath/Dyspnea Stated complaint: SOB, NOT FEELING RIGHT Source: patient History of Present Illness Onset (ago): day(s) 1 Location: left (lung) and right (lung) Pain Consistency: + other (persistent) Maximum Pain Intensity: 6 Quality: + other (shortness of breath) Exacerbated By: + movement Associated symptoms: + shortness of breath and + other (Positive light he adedness, shaky. Negative abdominal pain, dysuria.); no chest pain Treatments prior to arrival: none The patient is a 78 year old male presenting to the Emergency Department complaining of persistent shortness of breath starting 1 day ago. The patient reports that he is short of breath and doesnt feel like he is getting enough air. He states that he is congested and is draining a clear phlegm into his throat and that he usually experiences this but it is worse than usual. He explains that he feels light headed. He notes that walking around worsens his symptoms. He adds that he had a right total knee replacement done [address] Reilly Orthopedic surgeon. The patient reports that he feels shaky. He notes that he has not taken any medications for his shortness of breath. He patient denies new cough, abdominal pain, dysuria, chest pain, new redness to or drainage to his right knee. Home Medications Home Medications Medication Instructions Recorded Confirmed Type atorvastatin 80 mg PO PM 05/01/19 06/02/19 History finasteride 5 mg PO QPM 05/01/19 06/02/19 History fluticasone propionate [Flonase 1 spray INTRANASAL DAILY 05/01/19 06/02/19 Hi story Allergy Relief] gabapentin 100 mg PO TID 05/01/19 06/02/19 History lisinopril 5 mg PO QPM 05/01/19 06/02/19 History loratadine [Claritin] 10 mg PO DAILY PRN 05/01/19 06/02/19 History metoprolol tartrate 25 mg PO BID 05/01/19 06/02/19 History multivitamin 1 tab PO QAM 05/01/19 06/02/19 History nitroglycerin 0.4 mg SUBLINGUAL UD PRN 05/01/19 06/02/19 History omeprazole 20 mg PO BID 05/01/19 06/02/19 History ropinirole 0.5 mg PO HS 05/01/19 06/02/19 History sertraline 100 mg PO QPM 05/01/19 06/02/19 History tamsulosin 0.4 mg PO HS 05/01/19 06/02/19 History tolterodine [Detrol LA] 4 mg PO QPM 05/01/19 06/02/19 History trazodone 100 mg PO HS 05/01/19 06/02/19 History hydrocortisone [Proctosol HC] 1 applic MI QPM PRN 05/27/19 06/02/19 History acetaminophen [Tylenol Extra 1,000 mg PO Q8 PRN #60 tab 05/28/19 06/02/19 Rx Strength] ascorbic acid (vitamin C) [Vitamin 500 mg PO BIDM 14 Days #28 tab 05/28/19 06/02/19 Rx C] aspirin [Ecotrin Low Strength] 81 mg PO BID 45 Days #90 tab 05/28/19 06/02/19 Rx ferrous gluconate 324 mg PO BIDM 14 Days #28 tab 05/28/19 06/02/19 Rx oxycodone 5 - 10 mg PO Q4H PRN #30 tab 05/28/19 06/02/19 Rx celecoxib 200 mg PO BID 06/02/19 06/02/19 History oxycodone-acetaminophen 1 tab PO Q6H PRN 06/02/19 06/02/19 History Allergies Allergy/AdvReac Type Severity Reaction Status Date / Time cefaclor Allergy Intermediate swelling Verified 06/02/19 19:47 aspirin Allergy Mild bleeding Verified 06/02/19 19:47 ulcer (tolerates 81mg) Past Med/Surg History Medical History Anxiety BPH (benign prostatic hyperplasia) CAD (coronary artery disease) moderate, non-obstructive per 09/2018 cardiac cath, hx balloon angioplasty in 2007 per records Depression GERD (gastroesophageal reflux disease) controlled History of GI bleed + gastric ulcer [place] (hard of hearing) Hyperlipidemia Hypertension Insomnia Obesity Osteoarthritis Poor historian Restless leg Sciatica Sleep apnea non compliant w/ cpap Spinal stenosis Valvular heart disease mild aortic stenosis per 09/2018 cardiac cath Surgical History History of cardiac cath 09/2018 - [facility] - CP - NO STENTS 2010 - [facility] - NO STENTS 2007 - BALLOON ANGIOPLASTY LAD PER MEDICAL RECORD 2000 - [facility] - NO STENTS History of cataract surgery History of cholecystectomy History of colonoscopy History of esophagogastroduodenoscopy (EGD) History of right knee surgery x 2 History of tonsillectomy and adenoidectomy Status post total right knee replacement Family History Mother Heart disease Leukemia Father Lung cancer Brother Cancer Social History Preferred Language: Tamazight Communication Ability: Effective Art Psychotherapist Required: No Beliefs That Will Affect Care: None marital status: / Current Living Situation: Alone Feels Safe at Home: Yes Smoking Status: Current every day smoker Tobacco Type: cigarettes ; Cigarettes Per Day: 1/4 ppd ; Second Hand Exposure: Yes ; Hx Alcohol Use: No Hx Substance Use: No Review of Systems See HPI for pertinent positives & negatives. and A total of 10 systems reviewed and were otherwise negative Physical Exam Vital Signs Vital Signs - 24 hr 06/02/19 15:36 06/02/19 16:49 06/02/19 16:52 Temperature 36.8 C Temperature Source Oral Pulse Rate 90 86 Pulse Rate [Left Finger] Pulse Rate from SpO2 Sensor 86 Pulse Rhythm Regular Pulse Strength Normal Respiratory Rate 20 16 Respiratory Effort / Characteristics Non-Labored Spontaneous Respiratory Depth Normal Respiratory Pattern Regular Blood Pressure 170/88 H 168/81 H Blood Pressure [Right Arm] Blood Pressure Mean 115 117 Blood Pressure Mean [Right Arm] Blood Pressure Position Sitting Pulse Oximetry 96 92 Oxygen Delivery Method Room Air Room Air Room Air Sepsis Recent Fever Within 48 Hours No Sepsis New/Unexplained Change in Mental Status No Sepsis Action Taken by Nursing No Action Required 06/02/19 16:53 06/02/19 17:00 06/02/19 17:01 Temperature Temperature Source Pulse Rate 83 86 88 Pulse Rate [Left Finger] Pulse Rate from SpO2 Sensor 83 87 88 Pulse Rhythm Pulse Strength Respiratory Rate 17 23 14 Respiratory Effort / Characteristics Respiratory Depth Respiratory Pattern Blood Pressure 183/84 H Blood Pressure [Right Arm] Blood Pressure Mean 121 Blood Pressure Mean [Right Arm] Blood Pressure Position Pulse Oximetry 93 94 93 Oxygen Delivery Method Room Air Room Air Room Air Sepsis Recent Fever Within 48 Hours Sepsis New/Unexplained Change in Mental Status Sepsis Action Taken by Nursing 06/02/19 17:10 06/02/19 17:24 06/02/19 17:30 Temperature Temperature Source Pulse Rate 97 H 92 H 96 H Pulse Rate [Left Finger] Pulse Rate from SpO2 Sensor 97 H 92 H 92 H Pulse Rhythm Pulse Strength Respiratory Rate 16 18 17 Respiratory Effort / Characteristics Respiratory Depth Respiratory Pattern Blood Pressure 166/100 H Blood Pressure [Right Arm] Blood Pressure Mean 131 Blood Pressure Mean [Right Arm] Blood Pressure Position Pulse Oximetry 93 95 95 Oxygen Delivery Method Room Air Room Air Room Air Sepsis Recent Fever Within 48 Hours Sepsis New/Unexplained Change in Mental Status Sepsis Action Taken by Nursing 06/02/19 17:31 06/02/19 17:40 06/02/19 17:50 Temperature Temperature Source Pulse Rate 95 H 94 H 98 H Pulse Rate [Left Finger] Pulse Rate from SpO2 Sensor 96 H 92 H 98 H Pulse Rhythm Pulse Strength Respiratory Rate 14 9 L 34 H Respiratory Effort / Characteristics Respiratory Depth Respiratory Pattern Blood Pressure Blood Pressure [Right Arm] Blood Pressure Mean Blood Pressure Mean [Right Arm] Blood Pressure Position Pulse Oximetry 95 94 96 Oxygen Delivery Method Room Air Room Air Room Air Sepsis Recent Fever Within 48 Hours Sepsis New/Unexplained Change in Mental Status Sepsis Action Taken by Nursing 06/02/19 18:00 06/02/19 18:01 06/02/19 18:10 Temperature Temperature Source Pulse Rate 99 H 97 H 98 H Pulse Rate [Left Finger] Pulse Rate from SpO2 Sensor 99 H 97 H 98 H Pulse Rhythm Pulse Strength Respiratory Rate 20 19 28 H Respiratory Effort / Characteristics Respiratory Depth Respiratory Pattern Blood Pressure 181/96 H Blood Pressure [Right Arm] Blood Pressure Mean 146 Blood Pressure Mean [Right Arm] Blood Pressure Position Pulse Oximetry 96 94 93 Oxygen Delivery Method Room Air Room Air Room Air Sepsis Recent Fever Within 48 Hours Sepsis New/Unexplained Change in Mental Status Sepsis Action Taken by Nursing 06/02/19 18:12 06/02/19 18:20 06/02/19 20:32 Temperature Temperature Source Pulse Rate 97 H 94 H Pulse Rate [Left Finger] 98 H Pulse Rate from SpO2 Sensor 97 H 94 H Pulse Rhythm Pulse Strength Respiratory Rate 21 23 23 Respiratory Effort / Characteristics Respiratory Depth Respiratory Pattern Blood Pressure 151/93 H Blood Pressure [Right Arm] 181/96 H Blood Pressure Mean 107 Blood Pressure Mean [Right Arm] 124 Blood Pressure Position Pulse Oximetry 95 95 95 Oxygen Delivery Method Room Air Room Air Room Air Sepsis Recent Fever Within 48 Hours Sepsis New/Unexplained Change in Mental Status Sepsis Action Taken by Nursing 06/02/19 20:40 06/02/19 20:43 Temperature Temperature Source Pulse Rate 95 H 92 H Pulse Rate [Left Finger] Pulse Rate from SpO2 Sensor 98 H 93 H Pulse Rhythm Pulse Strength Respiratory Rate 22 22 Respiratory Effort / Characteristics Respiratory Depth Respiratory Pattern Blood Pressure 177/104 H Blood Pressure [Right Arm] Blood Pressure Mean 125 Blood Pressure Mean [Right Arm] Blood Pressure Position Pulse Oximetry 93 95 Oxygen Delivery Method Room Air Room Air Sepsis Recent Fever Within 48 Hours Sepsis New/Unexplained Change in Mental Status Sepsis Action Taken by Nursing GENERAL: Patient is sitting at edge of bed. Walker at bedside. Talking in full sentences. Nontoxic. EYE EXAM: normal conjunctiva. OROPHARYNX: no exudate, no erythema, lips, buccal mucosa, and tongue normal and mucous membranes are moist NECK: supple, no nuchal rigidity, no adenopathy, non-tender LUNGS: Clear to auscultation. Normal chest wall mechanics HEART: no murmurs, S1 normal and S2 normal ABDOMEN: abdomen soft, non-tender, normo-active bowel sounds, no masses, no rebound or guarding. BACK: Back is symmetrical on inspection and there is no deformity, no midline tenderness, no CVA tenderness. SKIN: no rashes and no bruising UPPER EXTREMITIES: upper extremities are grossly normal. LOWER EXTREMITIES: Right calf larger than left with mild pitting edema. Surgical dressing in place. Right knee mild surrounding bruising. NEURO EXAM: Normal sensorium, cranial nerves II-XII grossly intact, normal speech, no gross weakness of arms, no gross weakness of legs. Course Course ED COURSE: Vital signs were reviewed and showed hypertensive. The patients medical record was reviewed The above diagnostic studies were performed and reviewed. ED treatments and interventions as stated above. 1621: The patient was evaluated in room A9B. A complete history and physical examination was performed. 1904: I discussed the patients case with Dr. Pablo Arenas hospitalist. He will evaluate the patient for further management. 1909: I updated the patient. 1911: Upon reevaluation, I discussed my findings with the patient and his sister in law who understands and agrees with the treatment plan. Based on the patients age, coexisting illnesses, exam and lab findings the decision to treat as an inpatient was made. The patient remained stable while under my care. The patient will be evaluated for further management. Administered Medications Lisinopril (Zestril) 5 mg PO QPM KD Stop: 07/02/19 20:44 Last Admin: 06/02/19 21:42 Dose: 5 mg Documented by: [id number] Discontinued Medications Acetaminophen (Tylenol) 650 mg PO NOW STA Stop: 06/02/19 20:14 Last Admin: 06/02/19 20:44 Dose: 650 mg Documented by: [id number] Ioversol (Optiray 320 125ml) 115 ml IV ONCE PRN PRN Reason: Interaction Checking Stop: 06/06/19 18:36 Last Admin: 06/02/19 18:38 Dose: 115 ml Documented by: [id number] Metoprolol Tartrate (Lopressor) 25 mg PO NOW STA Stop: 06/02/19 19:20 Last Admin: 06/02/19 20:44 Dose: 25 mg Documented by: [id number] Nitroglycerin (Nitro-Bid 2%) 2 inch EXT Q6H KD Stop: 07/02/19 19:14 Last Admin: 06/02/19 20:24 Dose: Not Given Documented by: [id number] Oxycodone HCl (Roxicodone Immediate Rel) 5 mg PO NOW STA Stop: 06/02/19 17:11 Last Admin: 06/02/19 17:19 Dose: 5 mg Documented by: [id number] Medical Decision Making Differential Diagnosis Differential diagnoses includes but is not limited to pneumonia, bronchitis, COPD/Asthma exacerbation, pneumothorax, pulmonary embolism, congestive heart failure, acute coronary syndrome Medical Records Attestation: I reviewed the patient's medical records. Home Medications Current Medication List: was personally reviewed by me Laboratory Data Attestation: I reviewed the patient's lab results. Result diagrams: 06/02/19 16:34 06/02/19 16:34 Lab Results 06/02/19 06/02/19 06/02/19 Range/Units 16:34 16:34 16:34 WBC 9.23 (4.8-10.8) K/uL RBC 3.97 L (4.7-6.1) M/uL Hgb 12.4 L (14.0-18.0) g/dL Hct 36.2 L (42-52) % MCV 91.2 (80-100) fL MCH 31.2 (25-34) pg MCHC 34.3 (32-36) g/dL RDW Std Deviation 48.3 H (36.4-46.3) fL RDW Coeff of Deborah 14.6 H (11.5-14.5) % Plt Count 269 (130-400) K/uL MPV 9.7 (7.4-10.4) fL Immature Gran % (Auto) 0.4 % Neut % (Auto) 73.1 % Lymph % (Auto) 17.0 % Sampson % (Auto) 7.5 % Eos % (Auto) 1.6 % Baso % (Auto) 0.4 % Immature Gran # (Auto) 0.04 H (0.00-0.02) K/uL Neut # (Auto) 6.74 H (1.4-6.5) K/uL Lymph # (Auto) 1.57 (1.2-3.4) K/uL Sampson # (Auto) 0.69 H (0.11-0.59) K/uL Eos # (Auto) 0.15 (0-0.5) K/uL Baso # (Auto) 0.04 (0-0.2) K/uL PT 10.3 (9.0-12.0) Seconds INR 1.0 (0.9-1.1) APTT 25.8 (21.0-31.0) Seconds PTT Ratio 1.0 Sodium 137 (136-145) mmol/L Potassium 3.7 (3.5-5.1) mmol/L Chloride 103 (98-107) mmol/L Carbon Dioxide 28 (21-32) mmol/L Anion Gap 6.0 (3-11) BUN 11 (7-18) mg/dl Creatinine 0.99 (0.6-1.4) mg/dl Est Cr Clr Drug Dosing 66.9 ml/min Est GFR ( Amer) 84.8 Est GFR (Non-Af Amer) 73.2 BUN/Creatinine Ratio 11.4 (10-20) Glucose 122 H (70-99) mg/dl Calcium 9.5 (8.5-10.1) mg/dl Magnesium 1.5 L (1.8-2.4) mg/dl Total Bilirubin 0.6 (0.2-1) mg/dl AST 33 (15-37) U/L ALT 24 (12-78) U/L Alkaline Phosphatase 81 (45-117) U/L Troponin I 0.124 H* (0-0.045) ng/ml Total Protein 8.1 (6.4-8.2) gm/dl Albumin 3.7 (3.4-5.0) gm/dl Globulin 4.4 H (2.5-4.0) gm/dl Albumin/Globulin Ratio 0.8 L (0.9-2) TSH 0.721 (0.300-4.500) uIu/ml Urine Color Urine Appearance (Clear) Urine pH (4.5-7.5) Ur Specific [place] (1.000-1.030) Urine Protein (Negative) Urine Glucose (UA) (Negative) Urine Ketones (Negative) Urine Blood (Negative) Urine Nitrite (Negative) Urine Bilirubin (Negative) Urine Urobilinogen (Negative) Ur Leukocyte Esterase (Negative) Urine WBC (Auto) (0-5) /hpf Urine RBC (Auto) (0-4) /hpf U Hyaline Cast (Auto) (0-5) /lpf U Epithel Cells (Auto) (0-5) /lpf Urine Bacteria (Auto) (Negative) Influenza Type A (PCR) (Neg) Influenza Type B (PCR) (Neg) 06/02/19 06/02/19 Range/Units 16:54 17:21 WBC (4.8-10.8) K/uL RBC (4.7-6.1) M/uL Hgb (14.0-18.0) g/dL Hct (42-52) % MCV (80-100) fL MCH (25-34) pg MCHC (32-36) g/dL RDW Std Deviation (36.4-46.3) fL RDW Coeff of Deborah (11.5-14.5) % Plt Count (130-400) K/uL MPV (7.4-10.4) fL Immature Gran % (Auto) % Neut % (Auto) % Lymph % (Auto) % Sampson % (Auto) % Eos % (Auto) % Baso % (Auto) % Immature Gran # (Auto) (0.00-0.02) K/uL Neut # (Auto) (1.4-6.5) K/uL Lymph # (Auto) (1.2-3.4) K/uL Sampson # (Auto) (0.11-0.59) K/uL Eos # (Auto) (0-0.5) K/uL Baso # (Auto) (0-0.2) K/uL PT (9.0-12.0) Seconds INR (0.9-1.1) APTT (21.0-31.0) Seconds PTT Ratio Sodium (136-145) mmol/L Potassium (3.5-5.1) mmol/L Chloride (98-107) mmol/L Carbon Dioxide (21-32) mmol/L Anion Gap (3-11) BUN (7-18) mg/dl Creatinine (0.6-1.4) mg/dl Est Cr Clr Drug Dosing ml/min Est GFR ( Amer) Est GFR (Non-Af Amer) BUN/Creatinine Ratio (10-20) Glucose (70-99) mg/dl Calcium (8.5-10.1) mg/dl Magnesium (1.8-2.4) mg/dl Total Bilirubin (0.2-1) mg/dl AST (15-37) U/L ALT (12-78) U/L Alkaline Phosphatase (45-117) U/L Troponin I (0-0.045) ng/ml Total Protein (6.4-8.2) gm/dl Albumin (3.4-5.0) gm/dl Globulin (2.5-4.0) gm/dl Albumin/Globulin Ratio (0.9-2) TSH (0.300-4.500) uIu/ml Urine Color Yellow Urine Appearance Clear (Clear) Urine pH 8.0 H (4.5-7.5) Ur Specific [place] 1.011 (1.000-1.030) Urine Protein Negative (Negative) Urine Glucose (UA) Negative (Negative) Urine Ketones Negative (Negative) Urine Blood Trace H (Negative) Urine Nitrite Negative (Negative) Urine Bilirubin Negative (Negative) Urine Urobilinogen Negative (Negative) Ur Leukocyte Esterase 1+ H (Negative) Urine WBC (Auto) 1-5 (0-5) /hpf Urine RBC (Auto) 5-10 H (0-4) /hpf U Hyaline Cast (Auto) 0 (0-5) /lpf U Epithel Cells (Auto) 10-20 H (0-5) /lpf Urine Bacteria (Auto) Negative (Negative) Influenza Type A (PCR) Neg for Influ A (Neg) Influenza Type B (PCR) Neg for Influ B (Neg) Imaging Data Radiologist's Impression: Radiology results as stated below per my review and the radiologist's interpretation: CT ANGIOGRAM OF THE CHEST CLINICAL HISTORY: Dyspnea POSSIBLE PULMONARY EMBOLISM COMPARISON STUDY: 01/05/2011, chest x-ray dated 06/02/2019 TECHNIQUE: Following the IV administration of 115 mL of Optiray-320, CT a ngiogram of the thorax was performed from the thoracic inlet to the lung bases utilizing the pulmonary embolus protocol. Images are reviewed in the axial, sagittal, and coronal planes. IV contrast was administered without complication. MIP imaging was performed. A dose lowering technique was utilized adhering to the principles of ALARA. CT DOSE: 642.38 mGy.cm FINDINGS: No pathologically enlarged axillary mediastinal or hilar lymph nodes were visualized. There is mild ectasia of the ascending thoracic aorta which measures 38 mm at the level of the main pulmonary artery. Atheromatous changes are present within the distal descending thoracic aorta. There were no pulmonary artery filling defects to indicate acute pulmonary embolism. No pleural effusions are visualized. There are minor dependent atelectatic changes. There are no areas of focal parenchymal consolidation to indicate a pneumonia. There are coronary artery calcifications. IMPRESSION: 1. No acute intrathoracic findings 2. No evidence of acute pulmonary embolism 3. No evidence of focal pulmonary consolidation Electronically signed by: Frank Montoya M.D. 06/02/2019 6:47 PM XR chest 1V portable CLINICAL HISTORY: Dyspnea COMPARISON STUDY: 05/05/2017 FINDINGS: The heart is mildly enlarged. There is mild basilar interstitial prominence similar to the prior study, and likely chronic. There is no overt failure. There is no lobar consolidation. There are no pleural effusions.[ IMPRESSION: Mild cardiomegaly and stable mild basilar interstitial thickening. No acute findings. Electronically signed by: Frank Montoya M.D. 06/02/2019 5:09 PM ECG Data Attestation: I personally reviewed and interpreted this ECG as follows: Indication: + SOB/dyspnea Rate (beats per minute): 85 Rhythm: + sinus rhythm ECG Mobile: + Left axis deviation ECG Findings: + Other (Septal Q waves. Normal QTC. Non-specific ST changes in high lateral leads.); no PVCs Comparison ECG Date: from (05/06/17) Change: the following changes noted (Lateral leads have improved. ) Blood Pressure Blood Pressure Findings: Elevated blood pressure Blood Pressure Disposition: further management by hospitalist JERRELL Narrative Patient is a 78-year-old male that presents the ER for can ingestion shortness of breath and lightheadedness which is been present for last night. Denies any chest pain. IV was established blood work was obtained and shows no significant leukocytosis or anemia. INR was unremarkable. BMP was unremarkable but there is a mild hypo-magnesium at 1.5. Troponin was detectable at 0.125. EKG was nondiagnostic. Chest x-ray unremarkable. UA was contaminated. Influenza was negative. Patient was fairly hypertensive and placed on Nitropaste with systolic blood pressures in the 180s. He was updated bedside and admitted to the hospital for non-STEMI on 2 inch Nitropaste. Patient had also received aspirin orally. Impression & Plan Non-ST elevation IN (NSTEMI), SOB (shortness of breath) Discharge Plan Visit Data *Final* Discharge Date/Time: 06/02/19 21:39 Chief Complaint: Shortness of Breath/Dyspnea Stated Complaint: SOB, NOT FEELING RIGHT ED Provider: Jamison Palacios Discharge Problem: Non-ST elevation IN (NSTEMI), SOB (shortness of breath) Patient Disposition: Admitted As Inpatient Discharge Instructions Interventions: ED Discharge Assessment Last Done: 06/02/19 21:39 The scribe's documentation has been prepared under my direction and personally reviewed by me in its entirety. I confirm that the note above accurately reflects all work, treatment, procedures, and medical decision making performed by me.
[2019-06-02] MEDS: OXYCODONE HCL IR 5 MG TAB (IMMEDIATE RELEASE) PO PRN (22:48)
[2019-06-02] MEDS: GABAPENTIN 100 MG CAP PO SCH (22:49)
[2019-06-02] MEDS: ASPIRIN 81 MG ECTAB PO SCH (22:49)
[2019-06-02] MEDS ORDERED: lisinopriL 5 MG TAB PO ONE (23:15)
[2019-06-02] MEDS: MAGNESIUM SULFATE / D5W 1 GM/100 ML BAG IV SCH (23:32)
[2019-06-03] MEDS: MAGNESIUM SULFATE / D5W 1 GM/100 ML BAG IV SCH (00:26)
[2019-06-03] MEDS ORDERED: METOPROLOL TARTRATE 25 MG TAB PO SCH ×2 (05:15→09:00)
[2019-06-03 05:46] LABS: Basophils # (auto) 0.05 K/uL (0-0.2); Basophils % (auto) 0.7 %; Eosinophils # (auto) 0.26 K/uL (0-0.5); Eosinophils % (auto) 3.4 %; Hematocrit (blood only) 35.2 % (42-52); Immature Granulocytes # (auto) 0.02 K/uL (0.00-0.02); Immature Granulocytes % (auto) 0.3 %; Lymphocytes # (auto) 2.12 K/uL (1.2-3.4); Lymphocytes % (auto) 27.6 %; Mean Corpuscular Hemoglobin 31.5 pg (25-34); Mean Corpuscular Hgb Conc 34.1 g/dL (32-36); Mean Corpuscular Volume 92.4 fL (80-100); Mean Platelet Volume 9.2 fL (7.4-10.4); Monocytes # (auto) 0.78 K/uL (0.11-0.59); Monocytes % (auto) 10.1 %; Neutrophils # (auto) 4.46 K/uL (1.4-6.5); Neutrophils % (auto) 57.9 %; Platelet Count 227 K/uL (130-400); RDW Coefficient of Variation 14.7 % (11.5-14.5); RDW Standard Deviation 49.6 fL (36.4-46.3); Red Blood Count 3.81 M/uL (4.7-6.1); White Blood Count 7.69 K/uL (4.8-10.8)
[2019-06-03 06:16] LABS: Calcium 9.2 mg/dl (8.5-10.1); Creatinine Clr Calc Pharmacy 76.2 ml/min; Est GFR (Non-African American) 82.9; Potassium 3.7 mmol/L (3.5-5.1)
[2019-06-03 06:30] LABS: Troponin I 0.157 ng/ml (0-0.045)
[2019-06-03] MEDS: OXYCODONE HCL IR 5 MG TAB (IMMEDIATE RELEASE) PO PRN (07:47)
[2019-06-03] MEDS: ASPIRIN 81 MG ECTAB PO SCH (07:48)
[2019-06-03] MEDS: GABAPENTIN 100 MG CAP PO SCH ×2 (07:50→14:31)
[2019-06-03] MEDS ORDERED: CeleBREX 200 MG CAP PO SCH (08:00)
[2019-06-03] MEDS ORDERED: FERROUS GLUCONATE 324 MG TAB PO SCH (08:00)
[2019-06-03] MEDS ORDERED: FLUTICASONE PROPIONATE NA SPR 16 GM BTL SCH (09:00)
[2019-06-03] MEDS ORDERED: MULTIVITAMIN TAB PO SCH (09:00)
[2019-06-03] MEDS ORDERED: PANTOprazole 40 MG TAB PO SCH (09:00)
[2019-06-03] MEDS ORDERED: lisinopriL 5 MG TAB PO ONE ×2 (13:16→14:57)
--- NOTE | 2019-06-03 20:17 | Discharge Summary ---
Date of Service June 03, 2019 Admission HPI Per Admitting Provider History obtained from patient, family, and records. Medical history significant for CAD, hypertension, hyperlipidemia, COPD, ongoing tobacco abuse, past alcohol abuse. Recent confinement last week under orthopedic service for elective right knee surgery for osteoarthritis. Patient discharged on aspirin 81 mg twice daily 6-week course for DVT prophylaxis. Last night, patient noted symptoms of wooziness, not feeling right. Achy headache symptoms. Usual sinus congestion. No chest pain, SOB. Tolerable right knee discomfort. Does not check blood pressure at home. Compliant with home meds. Denies dietary indiscretion. No unusual stress. 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 Admission Exam Per Admitting Provider GENERAL: Slightly anxious and comfortable, episodic jerking in pain (chronic as per family), no respiratory distress, slightly hard of hearing, somewhat restless, obese SKIN: Pallor , warm HEENT: Pale palpebral conjunctivae, chronic ptosis, moist buccal mucosa NECK : Supple, short neck, no tenderness CHEST : Decreased breath sounds, no tenderness HEART : RRR, no obvious murmurs ABDOMEN: Some distention, nontender EXTREMITIES : Minimal RLE swelling/tenderness, no other conspicuous deformities noted NEUROLOGIC : Coherent, slightly hard of hearing, no facial asymmetry, episodic jerking in pain (chronic as per family), no other gross focality Principal Diagnosis Hypertensive urgency, NSTEMI Discharge Exam GENERAL: Elderly male, anxious, episodic jerking in pain (post op knee), in no respiratory distress HEENT: EOMI, PERRL, moist buccal mucosa NECK : Supple, short neck, no tenderness CHEST/LUNGS : Decreased breath sounds, no wheezing, rhonchi, crackles HEART : RRR, no obvious murmurs ABDOMEN:positive bowel sounds, mild distention, nontender, no guarding EXTREMITIES : Minimal RLE swelling/tenderness, moves all 4 extremities spontaneously SKIN: Pallor , warm, dry, no rashes or lesions noted NEURO/PSYCH : alert and oriented, anxious, slightly hard of hearing, no facial asymmetry, episodic jerking in pain (from knee pain/ recent surgery),moves all 4 extremities spontaneously Discharge Data Allergies Allergy/AdvReac Type Severity Reaction Status Date / Time cefaclor Allergy Intermediate swelling Verified 06/02/19 19:47 aspirin Allergy Mild bleeding Verified 06/02/19 19:47 ulcer (tolerates 81mg) Consultations 06/02/19 19:05 ED Decision to Admit Stat 06/02/19 22:05 Consult Case Management - Discharge Planning Routine Ordered Studies 06/02/19 16:29 CT angio chest PE protocol Stat 06/02/19 20:09 CT head/brain wo con Stat Hospital Course (1) Uncontrolled hypertension: Unclear precipitant NSTEMI Troponin elevation secondary to above - peaked at 0.16, will stop trending - pt denies any current chest pain Hypertensive urgency Hypertension (uncontrolled) - BP home meds adjusted (increased lisinopril from 5 mg to 10 mg daily) - discussed with the pt that anxiety and knee pain likely contribute to his BP elevation as well - pt did not wish to stay in the hospital for BP control - on last re-check his SBP was 210 mm Hg - pt had family members at the bedside who came to pick him up, despite our discussion and explanation of possible end organ damage and even poss. due to uncontrolled BP, pt decided to leave AMA, signed the form in front of the nurse who co-signed as witness - recommended to cont. lisinopril 10 mg daily - recommended to check BP at home 3 times a day and keep a log of these numbers - recommended to follow up with PCP within 1 week Hx CAD status post stent hyperlipidemia COPD, ongoing tobacco abuse, no acute lung issues Past alcohol abuse Recent right knee surgery, no issues as per patient - however cont. to have intermittent pain in his knee Hyperglycemia, likely prediabetes -hemoglobin A1c of 6.2% April 2019 Tobacco abuse nicotine patch PRN - pt not interested DVT Prophylaxis. Aspirin BID as per postop orthopedic rx Total Time Total Time Spent Total Time Spent (In Minutes): 40 Total Time Includes: Examination of the Patient, Discharge Planning, Medication Reconciliation and Communication With Other Providers Discharge Plan Discharge Items Patient Disposition: Against Medical Advice Reason For Visit: HTN URGENCY Discharge Diagnosis: Hypertensive urgency, NSTEMI Activity: Resume your previous activity Activity Comment: as tolerated, pace yourself, ask for help as needed Non-emergency contact: Primary Care Provider Call non-emergency contact if: you have any medication questions and your symptoms worsen Follow-up/Referrals: Salas Gibbons, DO [Primary Care Provider] - Diet: Heart Healthy and Low Sodium (2gm) Addtl Attending Provider Instructions: Take lisinopril 10 mg daily instead of 5 mg daily. Check your blood pressure at home, 3 times a day, and keep a log. Bring this to your primary care provider so your blood pressure medications can be adjusted. You should see your primary care doctor within 1 week. Pending Studies at Discharge: No Stand-Alone Forms: [facility], Smoking Cessation Medications and DC Order Prescriptions: New lisinopril 10 mg Tablet 10 mg PO QPM 30 Days Qty: 30 RF: 0 Continued multivitamin Tablet 1 tab PO QAM RF: 0 atorvastatin 80 mg Tablet 80 mg PO PM RF: 0 tolterodine [Detrol LA] 4 mg Capsule,Extended Release 24hr 4 mg PO QPM RF: 0 sertraline 100 mg Tablet 100 mg PO QPM RF: 0 tamsulosin 0.4 mg Capsule 0.4 mg PO HS RF: 0 trazodone 100 mg Tablet 100 mg PO HS RF: 0 ropinirole 0.5 mg Tablet 0.5 mg PO HS RF: 0 nitroglycerin 0.4 mg Tablet, Sublingual 0.4 mg sublingual UD PRN (Reason: Chest Pain) RF: 0 gabapentin 100 mg Capsule 100 mg PO TID RF: 0 fluticasone propionate [Flonase Allergy Relief] 50 mcg/actuation [place],[employer] pension 1 spray INTRANASAL DAILY RF: 0 finasteride 5 mg Tablet 5 mg PO QPM RF: 0 loratadine [Claritin] 10 mg Tablet 10 mg PO DAILY PRN (Reason: Allergy Symptoms) RF: 0 metoprolol tartrate 25 mg Tablet 25 mg PO BID RF: 0 omeprazole 20 mg Tablet,Delayed Release (Dr/Ec) 20 mg PO BID RF: 0 hydrocortisone [Proctosol HC] 2.5 % cream with perineal applicator 1 applic [place] QPM PRN (Reason: Hemorrhoids) RF: 0 aspirin [Ecotrin Low Strength] 81 mg Tablet,Delayed Release (Dr/Ec) 81 mg PO BID 45 Days Qty: 90 RF: 0 acetaminophen [Tylenol Extra Strength] 500 mg Tablet 1,000 mg PO Q8 PRN (Reason: pain) Qty: 60 RF: 0 oxycodone 5 mg Tablet 5 - 10 mg PO Q4H PRN (Reason: pain) Qty: 30 RF: 0 ferrous gluconate 324 mg (38 mg iron) Tablet 324 mg PO BIDM 14 Days Qty: 28 RF: 0 ascorbic acid (vitamin C) [Vitamin C] 500 mg Tablet 500 mg PO BIDM 14 Days Qty: 28 RF: 0 celecoxib 200 mg capsule 200 mg PO BID RF: 0 oxycodone-acetaminophen 5-325 mg tablet 1 tab PO Q6H PRN (Reason: Pain) RF: 0 Discontinued lisinopril 5 mg Tablet 5 mg PO QPM RF: 0 Discharge Orders: Left Against Medical Advice (Routine); Ordered 06/03/19 Ordered By: Diego Melvin Admission Data Admit Date/Time: 06/02/19 20:45 Attending Provider: Diego Melvin Admit Provider: Kenny Dye Primary Care Provider: Slaas Gibbons Other Providers: Radha Shah ; [facility] Other Interventions: Discharge Summary Assessment (RN) Last Done: 06/03/19 16:30 DC Date/Time DO NOT enter until pt leaves facility: 06/03/19 16:20
[2019-06-03] MEDS ORDERED: lisinopriL 10 MG TAB PO SCH (21:00)
== END 2019-06-03 16:20 | disposition left against medical advice (07) ==
LOC: ED 15:17 → 2S 15:17

== ENCOUNTER 2019-09-12 21:38 | Inpatient (IN) ==
--- NOTE | 2019-09-12 22:00 | Emergency Department Note ---
History of Present Illness General Chief complaint: Shortness of Breath/Dyspnea Time Seen by Provider: 09/12/19 21:46 History of Present Illness Maximum Pain Intensity: 5 This is a 78-year-old male presenting to the emergency department for evaluation of shortness of breath symptoms for the past 3 days. The patient symptoms seem to worsen when he lays down, and he has not been able to sleep the last 3 days because of this. He did contact the ambulance as he felt worse tonight, and did receive a DuoNeb in route to the ER. The DuoNeb did help his breathing, and he evidently feels much better. The patient has a history of an STEMI and coronary artery disease. He evidently is on a course of prednisone and amoxicillin for his symptoms, but this does not seem to be helping his discomfort. He does not report fever or recent travel history. No weight gain or swelling of his legs. He rates his current discomfort a 5/10, which is improved from his 8/10 earlier. Home Medications Home Medications Medication Instructions Recorded Confirmed Type atorvastatin [Lipitor] 80 mg PO HS 05/01/19 09/12/19 History finasteride [Proscar] 5 mg PO QAM 05/01/19 09/12/19 History fluticasone propionate [Flonase 2 spray INTRANASAL DAILY 05/01/19 09/12/19 History Allergy Relief] gabapentin [Neurontin] 100 mg PO TID 05/01/19 09/12/19 History loratadine [Claritin] 10 mg PO DAILY PRN 05/01/19 09/12/19 History multivitamin 1 tab PO QAM 05/01/19 09/12/19 History nitroglycerin [Nitrostat] 0.4 mg SUBLINGUAL UD PRN 05/01/19 09/12/19 History omeprazole 20 mg PO BID 05/01/19 09/12/19 History ropinirole 0.5 mg PO HS 05/01/19 09/12/19 History sertraline [Zoloft] 100 mg PO QAM 05/01/19 09/12/19 History tamsulosin [Flomax] 0.4 mg PO HS 05/01/19 09/12/19 History trazodone 100 mg PO HS 05/01/19 09/12/19 History hydrocortisone [Proctosol HC] 1 applic [place] QPM PRN 05/27/19 09/12/19 History oxycodone-acetaminophen [Percocet] 1 tab PO Q6H PRN 06/02/19 09/12/19 History acetaminophen [Tylenol Extra 1,000 mg PO Q8 PRN 09/12/19 09/12/19 History Strength] aspirin [Ecotrin Low Strength] 162 mg PO QAM 09/12/19 09/12/19 History fluticasone furoate-vilanterol 1 inh INHALATION DAILY 09/12/19 09/12/19 History [Breo Ellipta] isosorbide mononitrate 30 mg PO QAM 09/12/19 09/12/19 History lisinopril [Zestril] 40 mg PO DAILY 09/12/19 09/12/19 History metoprolol succinate [Toprol XL] 25 mg PO QAM 09/12/19 09/12/19 History oxycodone [Roxicodone] 5 - 10 mg PO Q4H PRN 09/12/19 09/12/19 History prednisone 0 mg PO DAILY 09/12/19 09/12/19 History Allergies Allergy/AdvReac Type Severity Reaction Status Date / Time cefaclor Allergy Intermediate swelling Verified 09/12/19 22:50 aspirin Allergy Mild bleeding Verified 09/12/19 22:50 ulcer (tolerates 81mg) Past Med/Surg History Medical History Anxiety BPH (benign prostatic hyperplasia) CAD (coronary artery disease) moderate, non-obstructive per 09/2018 cardiac cath, hx balloon angioplasty in 2007 per records Depression GERD (gastroesophageal reflux disease) controlled History of GI bleed + gastric ulcer QUINAULT (hard of hearing) Hyperlipidemia Hypertension Insomnia Obesity Osteoarthritis Poor historian Restless leg Sciatica Sleep apnea non compliant w/ cpap Spinal stenosis Valvular heart disease mild aortic stenosis per 09/2018 cardiac cath Surgical History History of cardiac cath 09/2018 - [facility] - CP - NO STENTS 2010 - [facility] - NO STENTS 2007 - BALLOON ANGIOPLASTY LAD PER MEDICAL RECORD 2000 - [facility] - NO STENTS History of cataract surgery History of cholecystectomy History of colonoscopy History of esophagogastroduodenoscopy (EGD) History of right knee surgery x 2 History of tonsillectomy and adenoidectomy Status post total right knee replacement Social History Preferred Language: Malawian Communication Ability: Effective Paid Search Analyst Required: No Beliefs That Will Affect Care: None marital status: / Current Living Situation: Alone Current Living Situation Comment: Lives in apartment Other Information That Helps Us Care for You: No Feels Safe at Home: Yes Safety Concerns: Feels Safe At This Time Smoking Status: Current every day smoker Tobacco Type: cigarettes ; Cigarettes Per Day: 20 ; Second Hand Exposure: Yes ; Hx Alcohol Use: No Hx Substance Use: No Review of Systems A total of 10 systems reviewed and were otherwise negative Physical Exam Vital Signs Vital Signs - 24 hr 09/12/19 21:40 09/12/19 21:42 09/12/19 21:50 Temperature 36.7 C Temperature Source Oral Pulse Rate 102 H Pulse Rate [Apical] Respiratory Rate 22 Respiratory Effort / Characteristics Respiratory Depth Normal Blood Pressure 157/91 H Blood Pressure [Right Arm] Blood Pressure Mean 113 Blood Pressure Mean [Right Arm] Pulse Oximetry 87 L Oxygen Delivery Method Room Air Room Air Nasal Cannula Oxygen Flow Rate 2 Sepsis Recent Fever Within 48 Hours No Sepsis Action Taken by Nursing No Action Required 09/12/19 21:59 09/12/19 22:35 09/12/19 23:34 Temperature Temperature Source Pulse Rate Pulse Rate [Apical] 94 H 93 H Respiratory Rate 18 22 Respiratory Effort / Characteristics Non-Labored Spontaneous Short of Breath Respiratory Depth Normal Blood Pressure Blood Pressure [Right Arm] 153/77 H Blood Pressure Mean Blood Pressure Mean [Right Arm] 102 Pulse Oximetry 94 96 Oxygen Delivery Method Nasal Cannula Nasal Cannula Nasal Cannula Oxygen Flow Rate 2 2 2.5 Sepsis Recent Fever Within 48 Hours Sepsis Action Taken by Nursing VITALS: Vitals are noted on the nurse's note and reviewed by myself. Vital signs with O2 saturation of 87% on room air GENERAL: Elderly white male who appears in mild discomfort. He is able to speak in full sentences and does have a noted dry cough. HEAD: Normocephalic atraumatic. EARS: External ear normal. External auditory canals clear, tympanic membranes pearly christine without erythema or effusion bilaterally. NECK: Supple without nuchal rigidity. No lymphadenopathy. No thyromegaly. Cervical spine is nontender. HEART: Regular rate and rhythm with coarse systolic murmur LUNGS: Generally clear in the upper [place] with mild bibasilar crackles ABDOMEN: Positive normal bowel sounds x 4. Soft, nontender, without masses or organomegaly. No guarding or rebound tenderness. MUSCULOSKELETAL: No muscle atrophy, erythema, or edema noted. Full range of motion in all extremities. NEURO: Patient was alert and oriented to person place and time. CN II through XII grossly intact. SKIN: The skin was without rashes, erythema, edema, or bruising. Capillary refill less than 2 seconds. Course Administered Medications Acetaminophen (Tylenol) 650 mg PO Q4H PRN PRN Reason: Pain or Fever Stop: 10/13/19 00:31 Last Admin: 09/13/19 02:57 Dose: 650 mg Documented by: [id number] Oxycodone HCl (Roxicodone Immediate Rel) 5 mg PO Q4H PRN PRN Reason: Pain Stop: 09/27/19 00:54 Last Admin: 09/13/19 01:45 Dose: 5 mg Documented by: [id number] Discontinued Medications Albuterol (Duoneb) 3 ml NEB NOW STA Stop: 09/12/19 23:05 Last Admin: 09/12/19 23:33 Dose: 3 ml Documented by: [id number] Furosemide (Lasix) 40 mg IV NOW STA Stop: 09/12/19 22:29 Last Admin: 09/12/19 22:45 Dose: 40 mg Documented by: [id number] Calcium Gluconate 1,000 mg/ (Sodium Chloride) 60 mls @ 240 mls/hr IV NOW STA Stop: 09/12/19 23:17 Last Infusion: 09/12/19 23:50 Dose: 0 mls/hr Documented by: [id number] Admin: 09/12/19 23:27 Dose: 240 mls/hr Documented by: [id number] Magnesium Sulfate/Dextrose (Magnesium Sulfate / D5w) 1 gm in 100 mls @ 100 mls/hr IV Q1H KD Stop: 09/13/19 05:13 Last Admin: 09/13/19 04:46 Dose: 100 mls/hr Documented by: [id number] Infusion: 09/13/19 04:41 Dose: 100 mls/hr Documented by: [id number] Admin: 09/13/19 03:41 Dose: 100 mls/hr Documented by: [id number] Infusion: 09/13/19 03:41 Dose: 0 mls/hr Documented by: [id number] Admin: 09/13/19 02:37 Dose: 100 mls/hr Documented by: [id number] Infusion: 09/13/19 02:37 Dose: 100 mls/hr Documented by: [id number] Admin: 09/13/19 01:45 Dose: 100 mls/hr Documented by: [id number] Metoprolol Tartrate (Lopressor) 12.5 mg PO NOW STA Stop: 09/13/19 00:16 Last Admin: 09/13/19 01:46 Dose: 12.5 mg Documented by: [id number] Potassium Chloride (Klor-Con M20) 40 meq PO NOW STA Stop: 09/12/19 23:04 Last Admin: 09/12/19 23:26 Dose: 40 meq Documented by: [id number] Medical Decision Making Differential Diagnosis Differential diagnosis: Etiologies such as infections, reactive airway disease, COPD, pneumonia, pleural effusion, pulmonary edema, ARDS, pneumothorax, CHF, cardiac ischemia, cardiac tamponade, dysrhythmia, anemia, pulmonary embolism, musculoskeletal, gastrointestinal process, as well as others were entertained. Laboratory Data Result diagrams: 09/12/19 21:45 09/12/19 21:45 Lab Results 09/12/19 09/12/19 09/12/19 Range/Units 21:45 21:45 22:05 WBC 9.39 (4.8-10.8) K/uL RBC 4.08 L (4.7-6.1) M/uL Hgb 12.0 L (14.0-18.0) g/dL Hct 35.9 L (42-52) % MCV 88.0 (80-100) fL MCH 29.4 (25-34) pg MCHC 33.4 (32-36) g/dL RDW Std Deviation 47.9 H (36.4-46.3) fL RDW Coeff of Deborah 14.9 H (11.5-14.5) % Plt Count 211 (130-400) K/uL MPV 10.3 (7.4-10.4) fL Immature Gran % (Auto) 0.1 % Neut % (Auto) 87.7 % Lymph % (Auto) 9.4 % [place] % (Auto) 2.1 % Eos % (Auto) 0.4 % Baso % (Auto) 0.3 % Immature Gran # (Auto) 0.01 (0.00-0.02) K/uL Neut # (Auto) 8.23 H (1.4-6.5) K/uL Lymph # (Auto) 0.88 L (1.2-3.4) K/uL [place] # (Auto) 0.20 (0.11-0.59) K/uL Eos # (Auto) 0.04 (0-0.5) K/uL Baso # (Auto) 0.03 (0-0.2) K/uL PT (9.0-12.0) Seconds INR (0.9-1.1) APTT (21.0-31.0) Seconds PTT Ratio VBG pH (7.36-7.41) VBG pCO2 (38-50) mmHg VBG pO2 mmHg VBG HCO3 mmol/L VBG O2 Saturation % VBG Base Excess mEq/L Barometric Pressure mm/Hg Sodium 135 L (136-145) mmol/L Potassium 3.5 (3.5-5.1) mmol/L Chloride 104 (98-107) mmol/L Carbon Dioxide 24 (21-32) mmol/L Anion Gap 7.0 (3-11) BUN 15 (7-18) mg/dl Creatinine 1.01 (0.6-1.4) mg/dl Est Cr Clr Drug Dosing Not Reportable Est GFR ( Amer) 82.8 Est GFR (Non-Af Amer) 71.4 BUN/Creatinine Ratio 15.0 (10-20) Glucose 150 H (70-99) mg/dl Calcium 8.1 L (8.5-10.1) mg/dl Magnesium 0.8 L* (1.8-2.4) mg/dl Total Bilirubin 0.4 (0.2-1) mg/dl AST 27 (15-37) U/L ALT 31 (12-78) U/L Alkaline Phosphatase 99 (45-117) U/L Troponin I 0.031 (0-0.045) ng/ml NT-Pro-B Natriuret Pep 4592 H (0-1800) pg/ml Total Protein 7.6 (6.4-8.2) gm/dl Albumin 3.6 (3.4-5.0) gm/dl Globulin 4.0 (2.5-4.0) gm/dl Albumin/Globulin Ratio 0.9 (0.9-2) Lipase 64 L (73-393) U/L TSH 0.665 (0.300-4.500) uIu/ml Influenza Type A Ag Neg for Influ A (Neg) Influenza Type B Ag Neg for Influ B (Neg) 09/12/19 09/12/19 Range/Units 22:12 22:12 WBC (4.8-10.8) K/uL RBC (4.7-6.1) M/uL Hgb (14.0-18.0) g/dL Hct (42-52) % MCV (80-100) fL MCH (25-34) pg MCHC (32-36) g/dL RDW Std Deviation (36.4-46.3) fL RDW Coeff of Edborah (11.5-14.5) % Plt Count (130-400) K/uL MPV (7.4-10.4) fL Immature Gran % (Auto) % Neut % (Auto) % Lymph % (Auto) % [place] % (Auto) % Eos % (Auto) % Baso % (Auto) % Immature Gran # (Auto) (0.00-0.02) K/uL Neut # (Auto) (1.4-6.5) K/uL Lymph # (Auto) (1.2-3.4) K/uL [place] # (Auto) (0.11-0.59) K/uL Eos # (Auto) (0-0.5) K/uL Baso # (Auto) (0-0.2) K/uL PT 11.6 (9.0-12.0) Seconds INR 1.1 (0.9-1.1) APTT 29.1 (21.0-31.0) Seconds PTT Ratio 1.0 VBG pH 7.42 H (7.36-7.41) VBG pCO2 39 (38-50) mmHg VBG pO2 47 mmHg VBG HCO3 25 mmol/L VBG O2 Saturation 81.0 % VBG Base Excess 0.4 mEq/L Barometric Pressure 733.7 mm/Hg Sodium (136-145) mmol/L Potassium (3.5-5.1) mmol/L Chloride (98-107) mmol/L Carbon Dioxide (21-32) mmol/L Anion Gap (3-11) BUN (7-18) mg/dl Creatinine (0.6-1.4) mg/dl Est Cr Clr Drug Dosing Est GFR ( Amer) Est GFR (Non-Af Amer) BUN/Creatinine Ratio (10-20) Glucose (70-99) mg/dl Calcium (8.5-10.1) mg/dl Magnesium (1.8-2.4) mg/dl Total Bilirubin (0.2-1) mg/dl AST (15-37) U/L ALT (12-78) U/L Alkaline Phosphatase (45-117) U/L Troponin I (0-0.045) ng/ml NT-Pro-B Natriuret Pep (0-1800) pg/ml Total Protein (6.4-8.2) gm/dl Albumin (3.4-5.0) gm/dl Globulin (2.5-4.0) gm/dl Albumin/Globulin Ratio (0.9-2) Lipase (73-393) U/L TSH (0.300-4.500) uIu/ml Influenza Type A Ag (Neg) Influenza Type B Ag (Neg) Imaging Data Radiologist's Impression: XR chest 1V portable HISTORY: 78 years-old Male Cough, SOB acute cough with shortness of breath COMPARISON: CTA of the chest and chest radiograph 06/02/2019 TECHNIQUE: Portable AP view of the chest FINDINGS: Cardiac silhouette is enlarged, unchanged. Pulmonary vascular congestion with mild interstitial coarsening. Bibasilar consolidative opacities are noted along with small pleural effusions. No pneumothorax. Degenerative changes of the shoulders and spine. IMPRESSION: 1. Cardiomegaly with pulmonary edema. 2. Bibasilar consolidation suggests atelectasis, pneumonia or aspiration pneumonitis. 3. Small pleural effusions. ECG Data Attestation: I personally reviewed and interpreted this ECG as follows: Indication: + SOB/dyspnea Additional Comments: Sinus tachycardia with occasional Premature ventricular complexes @102bpm Left anterior fascicular block Left ventricular hypertrophy with QRS widening Anteroseptal infarct (cited on or before 02-JUN-2019) T wave abnormality When compared with ECG of 02-JUN-2019 16:52, Premature ventricular complexes are now Present MDM Narrative Physical exam and history were performed. Nursing notes, EMR, and Medication List were personally reviewed. Patient appears to have difficulty breathing worsening over the past few days. On examination the patient is slightly tachycardic and does have an O2 sat of 87% on room air. He does have bibasilar crackles on exam. IV access was established and labs were obtained. Chest x-ray was performed and he was placed on the butcher fish. The patient was given oxygen via nasal cannula which immediately corrected his oxygen was 94%. The patient's blood work is as above and was reviewed. He does not have a significantly elevated white blood cell count. He is mildly anemic at 12. INR is 1.1 and VBG is essentially normal. BUN is 15 and creatinine is 1.01. Glucose is 150. He is hypomagnesemic at 0.8. Troponin is not elevated, but is detectable at 0.031. BNP is over 4500 and this certainly could contribute to his symptoms. He was given IV Lasix here in the ER. Chest x-ray was reviewed by myself and radiology showing bibasilar consolidations which could be atelectasis or pneumonia. Clinically at this time he does not seem to have a distinct pneumonia, but certainly could be in CHF. Influenza swab was performed and negative. The patient remained in normal sinus rhythm on the butcher fish with a rate of 75. He did not have significant ST changes but did have frequent PVCs. On reevaluation the patient does feel improved and is much more comfortable. He does not seem well for discharge home. The case was discussed with the on-call hospitalist, who agreed to evaluate the patient here in the ER. Please see their dictation for further patient course, plan, and disposition. The chart was completed utilizing [facility] Speech Voice Recognition Software. Grammatical errors, random word insertions, pronoun errors, and incomplete sentences are an occasional consequence of this system due to software limitations, ambient noise, and hardware issues. Any formal questions or concerns about the content, text, or information contained within the body of this dictation should be directly addressed to the provider for clarification. . Impression & Plan Acute hypoxemic respiratory failure, SOB (shortness of breath), CHF (congestive heart failure), Hypomagnesemia Discharge Plan Visit Data *Final* Discharge Date/Time: 09/13/19 00:12 Chief Complaint: Shortness of Breath/Dyspnea ED Provider: Jamison Palacios ED Midlevel Provider: Rambo Sebastian Discharge Problem: Acute hypoxemic respiratory failure, SOB (shortness of breath), CHF (congestive heart failure), Hypomagnesemia Patient Disposition: Admitted As Inpatient Discharge Instructions Interventions: ED Discharge Assessment Last Done: 09/13/19 00:12
[2019-09-12 22:11] LABS: Basophils # (auto) 0.03 K/uL (0-0.2); Basophils % (auto) 0.3 %; Eosinophils # (auto) 0.04 K/uL (0-0.5); Eosinophils % (auto) 0.4 %; Hematocrit (blood only) 35.9 % (42-52); Immature Granulocytes # (auto) 0.01 K/uL (0.00-0.02); Immature Granulocytes % (auto) 0.1 %; Lymphocytes # (auto) 0.88 K/uL (1.2-3.4); Lymphocytes % (auto) 9.4 %; Mean Corpuscular Hemoglobin 29.4 pg (25-34); Mean Corpuscular Hgb Conc 33.4 g/dL (32-36); Mean Platelet Volume 10.3 fL (7.4-10.4); Monocytes % (auto) 2.1 %; Neutrophils # (auto) 8.23 K/uL (1.4-6.5); Neutrophils % (auto) 87.7 %; Platelet Count 211 K/uL (130-400); RDW Coefficient of Variation 14.9 % (11.5-14.5); RDW Standard Deviation 47.9 fL (36.4-46.3); Red Blood Count 4.08 M/uL (4.7-6.1); White Blood Count 9.39 K/uL (4.8-10.8)
[2019-09-12 22:18] LABS: Alanine Aminotransferase 31 U/L (12-78); Albumin Level 3.6 gm/dl (3.4-5.0); Aspartate Aminotransferase 27 U/L (15-37); Blood Urea Nitrogen 15 mg/dl (7-18); Calcium 8.1 mg/dl (8.5-10.1); Carbon Dioxide 24 mmol/L (21-32); Chloride 104 mmol/L (98-107); Est GFR (African American) 82.8; Est GFR (Non-African American) 71.4; Glucose 150 mg/dl (70-99); Lipase 64 U/L (73-393); Potassium 3.5 mmol/L (3.5-5.1); Sodium 135 mmol/L (136-145)
[2019-09-12 22:22] LABS: Albumin Globulin Ratio 0.9 (0.9-2); Alkaline Phosphatase 99 U/L (45-117); Bilirubin,Total 0.4 mg/dl (0.2-1); NT Pro B Type Natriuretic Pept 4592 pg/ml (0-1800); Total Protein 7.6 gm/dl (6.4-8.2); Troponin I 0.031 ng/ml (0-0.045)
--- NOTE | 2019-09-12 22:23 | XRay Report ---
XR chest 1V portable HISTORY: 78 years-old Male Cough, SOB acute cough with shortness of breath COMPARISON: CTA of the chest and chest radiograph 06/02/2019 TECHNIQUE: Portable AP view of the chest FINDINGS: Cardiac silhouette is enlarged, unchanged. Pulmonary vascular congestion with mild interstitial coars ening. Bibasilar consolidative opacities are noted along with small pleural effusions. No pneumothora x. Degenerative changes of the shoulders and spine. IMPRESSION: 1. Cardiomegaly with pulmonary edema. 2. Bibasilar consolidation suggests atelectasis, pneumonia or aspiration pneumonitis. 3. Small pleural effusions. ACT 112: Negative or not required by law. The above report was generated using voice recognition software. It may contain grammatical, syntax o r spelling errors. Electronically signed by: Cameron Martel M.D. 09/12/2019 10:21 PM
[2019-09-12 22:24] LABS: Base Excess VBG 0.4 mEq/L; pH VBG 7.42 (7.36-7.41)
[2019-09-12] MEDS ORDERED: FUROSEMIDE 40 MG/4 ML VIAL IV STA (22:28)
[2019-09-12 22:33] LABS: INR 1.1 (0.9-1.1); Partial Thromboplastin Time 29.1 Seconds (21.0-31.0); Prothrombin Time 11.6 Seconds (9.0-12.0)
[2019-09-12] MEDS ORDERED: CALCIUM GLUCONATE 10% 1,000 MG in SODIUM CHLORIDE 0.9% 50 ML IV STA (23:03)
[2019-09-12] MEDS ORDERED: POTASSIUM CHLORIDE 20 MEQ TABCR PO STA (23:03)
[2019-09-12] MEDS ORDERED: ALBUT/IPRATROP 3MG/0.5MG NEB 3 ML VIAL NEB STA (23:04)
--- NOTE | 2019-09-12 23:36 | History & Physical Report ---
Date of Service September 12, 2019 Assessment & Plan (1) Acute hypoxemic respiratory failure: Secondary tp decompensated heart failure hx chronic systolic heart failure EF 45%, TTE 2019) hx CAD status post angioplasty hx valvular heart disease (moderate aortic stenosis/aortic regurgitation) Possible progression of cardiomyopathy hypertension, slightly elevated hyperlipidemia on statin Rx COPD, pulmonary status at baseline (symptoms did not respond to outpatient prednisone course) chronic anemia, hemoglobin at baseline prediabetes as per records, recent hemoglobin A1c of 6.26 May 2019 Past alcohol use ongoing tobacco abuse PCU Supplemental O2 Diuretic rx Strict I/Os, daily weights, CHF education, fluid restriction for now Cardiology consult RE decompensated heart failure Stop prednisone Nicotine patch DVT prophylaxis per Lovenox subcu Full code Text document was generated using [employer] voice recognition software. It may contain grammatical or spelling errors. Kindly contact undersigned for clarification of any documentation item in question. History of Present Illness Chief Complaint: Shortness of breath Primary Care Provider: Salas Gibbons DO History obtained from patient, family, and records. Medical history significant for chronic systolic heart failure EF 45%, TTE 2019), CAD status post angioplasty, valvular heart disease (moderate aortic stenosis/aortic regurgitation), hypertension, hyperlipidemia, COPD, chronic anemia (baseline hemoglobin of 12 ), prediabetes as per records, ongoing tobacco abuse, past alcohol abuse. Recent confinement last May 2019 for hypertensive urgency. Patient left hospital AGAINST MEDICAL ADVICE. 2 months ago, patient complaining of chest pain at Cardiology appointment. l Patient declined confinement as per records. Nuclear stress test demonstrated small area of apical posterior lateral ischemia with mild diffuse hypokinesis. Intermittent chest tightness complaints on outpatient [facility] follow-up visit last month. Updated TTE result from 07/2019 showed EF 45 to 49%. Mild diffuse LV hypokinesis. Diastolic dysfunction, concentric LVH. Moderate aortic valve stenosis. Moderate aortic valve regurgitation. Mild mitral regurgitation. Mild tricuspid regurgitation. Option of medical management versus cardiac catheterization for anginal symptoms discussed with patient. Patient chose medical management consisting of addition of Toprol XL and isosorbide to her regimen. 3 days history of shortness of breath even at rest and worse on lying down. No unusual cough symptoms. No chest pain. Compliant with home medications. Does not think he is retaining fluid. Seen at PCPs office 3 days ago. Breo Ellipta inhaler prescribed for COPD. Prednisone later added to regimen without improvement of symptoms. Patient brought to the ER for evaluation. Received IV Lasix for CHF. 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 Allergies Allergy/AdvReac Type Severity Reaction Status Date / Time cefaclor Allergy Intermediate swelling Verified 09/12/19 22:50 aspirin Allergy Mild bleeding Verified 09/12/19 22:50 ulcer (tolerates 81mg) Home Medications Home Medications Medication Instructions Recorded Confirmed Type atorvastatin [Lipitor] 80 mg PO HS 05/01/19 09/12/19 History finasteride [Proscar] 5 mg PO QAM 05/01/19 09/12/19 History fluticasone propionate [Flonase 2 spray INTRANASAL DAILY 05/01/19 09/12/19 History Allergy Relief] gabapentin [Neurontin] 100 mg PO TID 05/01/19 09/12/19 History loratadine [Claritin] 10 mg PO DAILY PRN 05/01/19 09/12/19 History multivitamin 1 tab PO QAM 05/01/19 09/12/19 History nitroglycerin [Nitrostat] 0.4 mg SUBLINGUAL UD PRN 05/01/19 09/12/19 History omeprazole 20 mg PO BID 05/01/19 09/12/19 History ropinirole 0.5 mg PO HS 05/01/19 09/12/19 History sertraline [Zoloft] 100 mg PO QAM 05/01/19 09/12/19 History tamsulosin [Flomax] 0.4 mg PO HS 05/01/19 09/12/19 History trazodone 100 mg PO HS 05/01/19 09/12/19 History hydrocortisone [Proctosol HC] 1 applic MD QPM PRN 05/27/19 09/12/19 History oxycodone-acetaminophen [Percocet] 1 tab PO Q6H PRN 06/02/19 09/12/19 History acetaminophen [Tylenol Extra 1,000 mg PO Q8 PRN 09/12/19 09/12/19 History Strength] aspirin [Ecotrin Low Strength] 162 mg PO QAM 09/12/19 09/12/19 History fluticasone furoate-vilanterol 1 inh INHALATION DAILY 09/12/19 09/12/19 History [Breo Ellipta] isosorbide mononitrate 30 mg PO QAM 09/12/19 09/12/19 History lisinopril [Zestril] 40 mg PO DAILY 09/12/19 09/12/19 History metoprolol succinate [Toprol XL] 25 mg PO QAM 09/12/19 09/12/19 History oxycodone [Roxicodone] 5 - 10 mg PO Q4H PRN 09/12/19 09/12/19 History prednisone 0 mg PO DAILY 09/12/19 09/12/19 History Past Med/Surg History Medical History Anxiety BPH (benign prostatic hyperplasia) CAD (coronary artery disease) moderate, non-obstructive per 09/2018 cardiac cath, hx balloon angioplasty in 2007 per records Depression GERD (gastroesophageal reflux disease) controlled History of GI bleed + gastric ulcer [place] (hard of hearing) Hyperlipidemia Hypertension Insomnia Obesity Osteoarthritis Poor historian Restless leg Sciatica Sleep apnea non compliant w/ cpap Spinal stenosis Valvular heart disease mild aortic stenosis per 09/2018 cardiac cath Surgical History History of cardiac cath 09/2018 - [facility] - CP - NO STENTS 2010 - [facility] - NO STENTS 2007 - BALLOON ANGIOPLASTY LAD PER MEDICAL RECORD 2000 - [facility] - NO STENTS History of cataract surgery History of cholecystectomy History of colonoscopy History of esophagogastroduodenoscopy (EGD) History of right knee surgery x 2 History of tonsillectomy and adenoidectomy Status post total right knee replacement Social History Preferred Language: Mexican Communication Ability: Effective Cloud Administrator Required: No Beliefs That Will Affect Care: None marital status: / Current Living Situation: Alone Current Living Situation Comment: Lives in apartment Other Information That Helps Us Care for You: No Feels Safe at Home: Yes Safety Concerns: Feels Safe At This Time Smoking Status: Current every day smoker Tobacco Type: cigarettes ; Cigarettes Per Day: 20 ; Second Hand Exposure: Yes ; Hx Alcohol Use: No Hx Substance Use: No Review of Systems Review of Systems: As per HPI, all 10 systems reviewed, all other ROS negative Physical Exam Physical Exam: GENERAL: slightly uncomfortable, hard of hearing, obese, minimal respiratory distress, somewhat restless SKIN: Pallor , warm HEENT: Pale palpebral conjunctivae, no ptosis, moist buccal mucosa, nasal cannula in place NECK : Supple, short neck, no tenderness CHEST : Decreased breath sounds, bibasilar crackles , no tenderness HEART : RRR, systolic murmur ABDOMEN: Some distention, nontender EXTREMITIES : Minimal LE swelling, no LE tenderness, no other conspicuous deformities noted NEUROLOGIC : Coherent, no facial asymmetry, mild hearing impairment, no other gross focality Results & Data Vital Signs (Past 12 Hours) Vital Signs Temp Pulse Pulse Resp BP BP Pulse Ox 09/12/19 23:34 93 H 22 96 09/12/19 22:35 94 H 18 153/77 H 94 09/12/19 21:40 36.7 C 102 H 22 157/91 H 87 L Laboratory Results Laboratory Results WBC 9.39 K/uL (4.8-10.8) 09/12/19 21:45 RBC 4.08 M/uL (4.7-6.1) L 09/12/19 21:45 Hgb 12.0 g/dL (14.0-18.0) L 09/12/19 21:45 Hct 35.9 % (42-52) L 09/12/19 21:45 MCV 88.0 fL (80-100) 09/12/19 21:45 MCH 29.4 pg (25-34) 09/12/19 21:45 MCHC 33.4 g/dL (32-36) 09/12/19 21:45 RDW Std Deviation 47.9 fL (36.4-46.3) H 09/12/19 21:45 RDW Coeff of Deborah 14.9 % (11.5-14.5) H 09/12/19 21:45 Plt Count 211 K/uL (130-400) 09/12/19 21:45 MPV 10.3 fL (7.4-10.4) 09/12/19 21:45 Immature Gran % (Auto) 0.1 % 09/12/19 21:45 Neut % (Auto) 87.7 % 09/12/19 21:45 Lymph % (Auto) 9.4 % 09/12/19 21:45 Cache % (Auto) 2.1 % 09/12/19 21:45 Eos % (Auto) 0.4 % 09/12/19 21:45 Baso % (Auto) 0.3 % 09/12/19 21:45 Immature Gran # (Auto) 0.01 K/uL (0.00-0.02) 09/12/19 21:45 Neut # (Auto) 8.23 K/uL (1.4-6.5) H 09/12/19 21:45 Lymph # (Auto) 0.88 K/uL (1.2-3.4) L 09/12/19 21:45 Cache # (Auto) 0.20 K/uL (0.11-0.59) 09/12/19 21:45 Eos # (Auto) 0.04 K/uL (0-0.5) 09/12/19 21:45 Baso # (Auto) 0.03 K/uL (0-0.2) 09/12/19 21:45 PT 11.6 Seconds (9.0-12.0) 09/12/19 22:12 INR 1.1 (0.9-1.1) 09/12/19 22:12 APTT 29.1 Seconds (21.0-31.0) 09/12/19 22:12 PTT Ratio 1.0 09/12/19 22:12 VBG pH 7.42 (7.36-7.41) H 09/12/19 22:12 VBG pCO2 39 mmHg (38-50) 09/12/19 22:12 VBG pO2 47 mmHg 09/12/19 22:12 VBG HCO3 25 mmol/L 09/12/19 22:12 VBG O2 Saturation 81.0 % 09/12/19 22:12 VBG Base Excess 0.4 mEq/L 09/12/19 22:12 Barometric Pressure 733.7 mm/Hg 09/12/19 22:12 Sodium 135 mmol/L (136-145) L 09/12/19 21:45 Potassium 3.5 mmol/L (3.5-5.1) 09/12/19 21:45 Chloride 104 mmol/L (98-107) 03/20/20 21:45 Carbon Dioxide 24 mmol/L (21-32) 09/12/19 21:45 Anion Gap 7.0 (3-11) 09/12/19 21:45 BUN 15 mg/dl (7-18) 09/12/19 21:45 Creatinine 1.01 mg/dl (0.6-1.4) 09/12/19 21:45 Est Cr Clr Drug Dosing Not Reportable 09/12/19 21:45 Est GFR ( Amer) 82.8 09/12/19 21:45 Est GFR (Non-Af Amer) 71.4 09/12/19 21:45 BUN/Creatinine Ratio 15.0 (10-20) 09/12/19 21:45 Glucose 150 mg/dl (70-99) H 09/12/19 21:45 Calcium 8.1 mg/dl (8.5-10.1) L 09/12/19 21:45 Total Bilirubin 0.4 mg/dl (0.2-1) 09/12/19 21:45 AST 27 U/L (15-37) 09/12/19 21:45 ALT 31 U/L (12-78) 09/12/19 21:45 Alkaline Phosphatase 99 U/L (45-117) 09/12/19 21:45 Troponin I 0.031 ng/ml (0-0.045) 09/12/19 21:45 NT-Pro-B Natriuret Pep 4592 pg/ml (0-1800) H 09/12/19 21:45 Total Protein 7.6 gm/dl (6.4-8.2) 09/12/19 21:45 Albumin 3.6 gm/dl (3.4-5.0) 09/12/19 21:45 Globulin 4.0 gm/dl (2.5-4.0) 09/12/19 21:45 Albumin/Globulin Ratio 0.9 (0.9-2) 09/12/19 21:45 Lipase 64 U/L (73-393) L 09/12/19 21:45 Influenza Type A Ag Neg for Influ A (Neg) 09/12/19 22:05 Influenza Type B Ag Neg for Influ B (Neg) 09/12/19 22:05 Diagnostic Findings Chest x-ray : 1. Cardiomegaly with pulmonary edema. 2. Bibasilar consolidation suggests atelectasis, pneumonia or aspiration pneumonitis. 3. Small pleural effusions. EKG as per my interpretation : Rate 105, sinus tachycardia, LAD, LAFB, LVH, T wave inversion, lateral leads, MD WP
[2019-09-13 00:02] LABS: Magnesium 0.8 mg/dl (1.8-2.4)
[2019-09-13] MEDS ORDERED: METOPROLOL TARTRATE 25 MG TAB PO STA (00:15)
[2019-09-13] MEDS ORDERED: LEVALBUTEROL 1.25MG/0.5ML NEB INH PRN (00:32)
[2019-09-13] MEDS ORDERED: PROMETHAZINE HCL 12.5 MG in SODIUM CHLORIDE 0.9% 50 ML IV PRN (00:32)
[2019-09-13] MEDS ORDERED: IPRATROPIUM BROMIDE NEB SOLN 0.02% 2.5 ML VIAL INH PRN (00:32)
[2019-09-13] MEDS ORDERED: LORATADINE 10 MG TAB PO PRN (00:32)
[2019-09-13] MEDS ORDERED: XOPENEX/ATROVENT 1.25mg/0.5MG NEB COMBO NEB PRN (00:32)
[2019-09-13 01:04] LABS: Thyroid Stimulating Hormone 0.665 uIu/ml (0.300-4.500)
[2019-09-13] MEDS: MAGNESIUM SULFATE / D5W 1 GM/100 ML BAG IV SCH ×5 (01:45→05:55)
[2019-09-13] MEDS: OXYCODONE HCL IR 5 MG TAB (IMMEDIATE RELEASE) PO PRN ×3 (01:45→14:09)
[2019-09-13] MEDS: ACETAMINOPHEN 325 MG TAB PO PRN (02:57)
[2019-09-13 05:58] LABS: Basophils # (auto) 0.01 K/uL (0-0.2); Basophils % (auto) 0.1 %; Eosinophils # (auto) 0.01 K/uL (0-0.5); Eosinophils % (auto) 0.1 %; Hematocrit (blood only) 34.5 % (42-52); Hemoglobin 11.5 g/dL (14.0-18.0); Immature Granulocytes # (auto) 0.02 K/uL (0.00-0.02); Immature Granulocytes % (auto) 0.3 %; Lymphocytes % (auto) 15.2 %; Mean Corpuscular Hemoglobin 29.8 pg (25-34); Mean Corpuscular Hgb Conc 33.3 g/dL (32-36); Mean Corpuscular Volume 89.4 fL (80-100); Mean Platelet Volume 10.1 fL (7.4-10.4); Monocytes # (auto) 0.53 K/uL (0.11-0.59); Monocytes % (auto) 6.7 %; Neutrophils % (auto) 77.6 %; Platelet Count 222 K/uL (130-400); RDW Standard Deviation 48.4 fL (36.4-46.3); Red Blood Count 3.86 M/uL (4.7-6.1); White Blood Count 7.87 K/uL (4.8-10.8)
[2019-09-13 06:27] LABS: BUN Creatinine Ratio 15.5 (10-20); Calcium 8.2 mg/dl (8.5-10.1); Creatinine Clr Calc Pharmacy 58.5 ml/min; Est GFR (African American) 73.8; Est GFR (Non-African American) 63.7; Magnesium 2.4 mg/dl (1.8-2.4)
[2019-09-13 06:52] LABS: Troponin I 0.233 ng/ml (0-0.045)
[2019-09-13 07:37] LABS: Estimated Average Glucose 131 mg/dl; Hemoglobin A1C 6.2 % (4.5-5.6)
[2019-09-13] MEDS: METOPROLOL SUCC 25MG EXT REL TAB PO SCH (07:51)
[2019-09-13] MEDS: PANTOprazole 40 MG TAB PO SCH ×2 (07:51→20:38)
[2019-09-13] MEDS: FINASTERIDE 5 MG TAB PO SCH (07:51)
[2019-09-13] MEDS: FUROSEMIDE 40 MG in SYRINGE 0 ML IV SCH ×2 (07:52→20:35)
[2019-09-13] MEDS: lisinopriL 40 MG TAB PO SCH (07:52)
[2019-09-13] MEDS: MULTIVITAMIN TAB PO SCH (07:52)
[2019-09-13] MEDS: GABAPENTIN 100 MG CAP PO SCH ×3 (07:52→20:38)
[2019-09-13] MEDS: ASPIRIN 81 MG ECTAB PO SCH (07:52)
[2019-09-13] MEDS: SERTRALINE HCL 100 MG TABLET PO SCH (07:53)
[2019-09-13] MEDS: ENOXAPARIN INJ 30 MG/0.3 ML SYR SQ SCH (07:53)
[2019-09-13] MEDS: ISOSORBIDE MONO EXTENDED REL 30 MG TABCR PO SCH (07:54)
[2019-09-13] MEDS: POTASSIUM CHLORIDE 20 MEQ TABCR PO SCH ×2 (07:54→20:40)
[2019-09-13] MEDS ORDERED: FUROSEMIDE 40 MG/4 ML VIAL IV SCH (09:00)
--- NOTE | 2019-09-13 10:42 | Electrocardiogram Report ---
Test Reason : Blood Pressure : / mmHG Vent. Rate : 102 BPM Atrial Rate : 102 BPM P-R Int : 184 ms QRS Dur : 124 ms QT Int : 388 ms P-R-T Axes : 000 -46 098 degrees QTc Int : 505 ms Sinus tachycardia with occasional Premature ventricular complexes Left anterior fascicular block Left ventricular hypertrophy with QRS widening Anteroseptal infarct (cited on or before 02-JUN-2019) T wave abnormality, consider lateral ischemia Abnormal ECG When compared with ECG of 02-JUN-2019 16:52, Premature ventricular complexes are now Present Left anterior fascicular block is now Present Confirmed by Demario Chowdhury ([id number]) on 09/13/2019 10:42:08 AM Referred By: REFERRED SELF Confirmed By:Bunny Chowdhury
--- NOTE | 2019-09-13 12:06 | Cardiology Consultation ---
Date of Consultation September 13, 2019 Assessment & Plan (1) CHF (congestive heart failure): (2) Acute hypoxemic respiratory failure: (3) Non-ST elevation AR (NSTEMI): (4) Aortic stenosis: 78 patient admitted with acute decompensated heart failure with subsequent hypoxemic respiratory failure. Continue IV diuretic therapy, Lasix 40 mg every 12 hours. Repeat resting 2D transthoracic echocardiogram to reassess LV systolic function/wall motion. Troponins are mildly elevated, however, possibly secondary to hypoxemic respiratory failure in the setting of acute decompensated heart failure with mildly reduced ejection fraction. Recent EF 45% per echocardiogram and nuclear stress testing. Recommend repeat troponin. If trending upward significantly, will add IV heparin. Continue aspirin, beta-maximino, statin, and TOM inhibitor at this time. Results of recent Lexiscan nuclear stress test reviewed suggesting apical posterior lateral ischemia. Patient has a chronic occlusion of of a large diagonal branch vessel that may account for this area of ischemia. Continue medical management for time being. Patient is requesting discharge today, however, I have convinced him to stay an additional 24 hours for medical management. We will continue to reassess him on a daily basis. Consider performing left heart catheterization with coronary angiography prior to discharge given results of recent Lexiscan nuclear stress test and mild further decline in LV systolic function. Thank you for allowing to participate in the care of your patient. History of Present Illness Reason for Consultation: Congestive heart failure Requesting Physician: Dr. Ann Attending Physician: Nando Ann MD History of Present Illness 78-year-old patient with complex cardiovascular history listed below presents with 3-day history of progressive shortness of breath at rest and with activity. Positive orthopnea. Patient evaluated by cardiology 08/11/2019. Medical management versus repeat cardiac catheterization discussed during that visit. Patient prescribed isosor bide monohydrate 30 mg daily. Patient reports worsening congestion, rhinorrhea, postnasal drip, and cough over the past week. Minimal sputum production noted. Denies fever, chills, or sick contacts. Progressive dyspnea over the past 48 hours. He awoke to use the restroom last evening. Had difficulty returning to his room. Notes associated lightheadedness and near syncope. Currently denies any chest pain or heaviness. Occasional lower extremity edema noted. Admits to excessive fluid intake, 2 L of diet Coke daily. Denies any alcohol use. Smokes 1 pack of cigarettes per day. Patient would like to be discharged home now. States "I go crazy in the hospital". Tolerated a.m. meal. No signs/symptoms of GI/ blood loss. Cardiac history copied from the medical center medical record: 1. Atherosclerotic coronary disease status post balloon angioplasty of the left anterior descending November of 2007 2. Diagnostic cardiac catheterization 2010 with moderate nonobstructive coronary disease 3. Diagnostic cardiac catheterization for intermittent chest discomfort October 02, 2018, 40% left anterior descending with chronic total occlusion thin small diagonal branch 4.. Chronic obstructive lung disease 5. Chronic tobacco use in cessation 6. Hyperlipidemia on therapy 7. Calcific non rheumatic aortic valve disease with mild/mod aortic stenosis, moderate aortic insufficiency Lexiscan nuclear stress test report 07/24/2019: Abnormal Lexiscan nuclear stress test demonstrating a small area of apical posterior lateral ischemia. Abnormal gated SPECT imaging demonstrating mild diffuse left ventricular hypokinesis. The LV ejection fraction is calculated at 43%. 2D echocardiogram report 07/24/2019: The qualitative LV ejection fraction is 45-49% (mildly reduced). There is mild diffuse left ventricular hypokinesis. The LV wall thickness is mildly increased (concentric). The left ventricular diastolic function is moderately abnormal (grade II). The aortic valve is moderately calcified. Moderate aortic valve stenosis is present. Moderate aortic valve regurgitation is present. Mild mitral regurgitation is present. Mild tricuspid regurgitation is present. Compared to last available study changes are noted as follows: Left ventricular systolic function has mildly declined. Cardiac cath report summary 09/2018: Left dominant coronary anatomy Near separate origins left anterior descending and left circumflex with very short left main Left anterior descending: Type III vessel with 40% proximal lesion at diagonal/septal moderate irregularities distally. Thin long first diagonal branch with chronic occlusion filling via left to left collaterals Left circumflex: Very large and long, dominant giving rise to very large tri furcating obtuse marginal, 3 posterior lateral branches and a small posterior descending artery along the AV groove. There is moderate irregularities in the left circumflex Right coronary artery: Essentially nondominant with 2 large right ventricular branches the terminal right ventricular branch does supply a small portion of the PDA distribution LV angiography: Not performed Aortic angiography: Mild aortic root dilatation, moderate 2+ aortic insufficiency Mildly calcified aortic valve with 12 mm peak to peak aortic valve gradient reflecting mild aortic stenosis Allergies Allergy/AdvReac Type Severity Reaction Status Date / Time cefaclor Allergy Intermediate swelling Verified 09/12/19 22:50 aspirin Allergy Mild bleeding Verified 09/12/19 22:50 ulcer (tolerates 81mg) Home Medications Home Medications Medication Instructions Recorded Confirmed Type atorvastatin [Lipitor] 80 mg PO HS 05/01/19 09/12/19 History finasteride [Proscar] 5 mg PO QAM 05/01/19 09/12/19 History fluticasone propionate [Flonase 2 spray INTRANASAL DAILY 05/01/19 09/12/19 History Allergy Relief] gabapentin [Neurontin] 100 mg PO TID 05/01/19 09/12/19 History loratadine [Claritin] 10 mg PO DAILY PRN 05/01/19 09/12/19 History multivitamin 1 tab PO QAM 05/01/19 09/12/19 History nitroglycerin [Nitrostat] 0.4 mg SUBLINGUAL UD PRN 05/01/19 09/12/19 History omeprazole 20 mg PO BID 05/01/19 09/12/19 History ropinirole 0.5 mg PO HS 05/01/19 09/12/19 History sertraline [Zoloft] 100 mg PO QAM 05/01/19 09/12/19 History tamsulosin [Flomax] 0.4 mg PO HS 05/01/19 09/12/19 History trazodone 100 mg PO HS 05/01/19 09/12/19 History hydrocortisone [Proctosol HC] 1 applic SD QPM PRN 05/27/19 09/12/19 History oxycodone-acetaminophen [Percocet] 1 tab PO Q6H PRN 06/02/19 09/12/19 History acetaminophen [Tylenol Extra 1,000 mg PO Q8 PRN 09/12/19 09/12/19 History Strength] aspirin [Ecotrin Low Strength] 162 mg PO QAM 09/12/19 09/12/19 History fluticasone furoate-vilanterol 1 inh INHALATION DAILY 09/12/19 09/12/19 History [Breo Ellipta] isosorbide mononitrate 30 mg PO QAM 09/12/19 09/12/19 History lisinopril [Zestril] 40 mg PO DAILY 09/12/19 09/12/19 History metoprolol succinate [Toprol XL] 25 mg PO QAM 09/12/19 09/12/19 History oxycodone [Roxicodone] 5 - 10 mg PO Q4H PRN 09/12/19 09/12/19 History prednisone 0 mg PO DAILY 09/12/19 09/12/19 History Patient History Medical History Anxiety BPH (benign prostatic hyperplasia) CAD (coronary artery disease) moderate, non-obstructive per 09/2018 cardiac cath, hx balloon angioplasty in 2007 per records Depression GERD (gastroesophageal reflux disease) controlled History of GI bleed + gastric ulcer [place] (hard of hearing) Hyperlipidemia Hypertension Insomnia Obesity Osteoarthritis Poor historian Restless leg Sciatica Sleep apnea non compliant w/ cpap Spinal stenosis Valvular heart disease mild aortic stenosis per 09/2018 cardiac cath Surgical History History of cardiac cath 09/2018 - [facility] - - NO STENTS 2010 - [facility] - NO STENTS 2007 - BALLOON ANGIOPLASTY LAD PER MEDICAL RECORD 2000 - [facility] - NO STENTS History of cataract surgery History of cholecystectomy History of colonoscopy History of esophagogastroduodenoscopy (EGD) History of right knee surgery x 2 History of tonsillectomy and adenoidectomy Status post total right knee replacement Family History Mother Heart disease Leukemia Father Lung cancer Brother Cancer Social History Preferred Language: Bengali Communication Ability: Effective Lab Systems Analyst Required: No Beliefs That Will Affect Care: None marital status: / Current Living Situation: Alone Current Living Situation Comment: Lives in apartment Other Information That Helps Us Care for You: No Feels Safe at Home: Yes Safety Concerns: Feels Safe At This Time Smoking Status: Current every day smoker Tobacco Type: cigarettes ; Cigarettes Per Day: 20 ; Second Hand Exposure: Yes ; Hx Alcohol Use: No Hx Substance Use: No Review of Systems Review of Systems: All systems reviewed & are unremarkable except as noted in HPI & below Physical Exam Constitutional: well developed, well nourished and + ill appearing Respiratory: Auscultation: + diminished lung sounds (Bases bilaterally), + rales (Bases bilaterally), + rhonchi and + wheezes (Mild end expiratory wheeze) Cardiovascular: Rate/Rhythm: regular rate and regular rhythm Heart Sounds: normal S1, normal S2 and + murmur (2/6 systolic ejection murmur heard best at the right second intercostal space.) Vessels: + JVD and radial pulses present Extremities: no edema Gastrointestinal (Abdomen): Inspection/Auscultation: abdomen normal to inspection and normal bowel sounds; abdomen not distended Percussion/Palpation: abdomen soft; abdomen nontender, no guarding and abdomen not rigid Musculoskeletal: no cyanosis or clubbing, extremities motor strength 5/5 Skin: no rashes, warm and dry Neurologic: moves all extremities; no focal motor deficits Psychiatric: A+Ox3, euthymic affect Results & Data ([facility]) Vital Signs (Past 12 Hours) Vital Signs Temp Pulse Pulse Resp BP Pulse Ox 09/13/19 11:30 36.3 C L 69 20 125/65 95 09/13/19 07:49 94 09/13/19 07:34 36.4 C L 69 22 127/71 97 09/13/19 07:21 71 09/13/19 04:28 36.4 C L 75 20 132/66 94 09/13/19 00:18 36.6 C 94 H 24 148/77 H 91 09/13/19 00:10 96 H 20 152/90 H 96 ECG Additional Comments: ECG demonstrates sinus tachycardia with left ventricular hypertrophy and secondary QRS widening. Compared to prior ECGs reviewed in the epic record, QRS duration has increased from 104 ms up to [address]-T wave abnormality in the inferior leads has resolved. (1) CHF (congestive heart failure) Heart failure chronicity: acute on chronic Heart failure type: combined systolic and diastolic Qualified Code(s): I50.43 - Acute on chronic combined systolic (congestive) and diastolic (congestive) heart failure (2) Aortic stenosis Cardiac valve disease etiology: nonrheumatic Qualified Code(s): I35.0 - Nonrheumatic aortic (valve) stenosis
[2019-09-13] MEDS: LORazepam 0.5 MG TAB PO PRN (18:01)
--- NOTE | 2019-09-13 18:23 | Electrocardiogram Report ---
Test Reason : Blood Pressure : / mmHG Vent. Rate : 066 BPM Atrial Rate : 066 BPM P-R Int : 242 ms QRS Dur : 108 ms QT Int : 470 ms P-R-T Axes : 052 -27 181 degrees QTc Int : 492 ms Sinus rhythm with 1st degree A-V block with Fusion complexes Minimal voltage criteria for LVH, may be normal variant T wave abnormality, consider lateral ischemia vs LVH Abnormal ECG Compared to the last EKG, T wave inversions are new Confirmed by Demario Chowdhury ([id number]) on 09/13/2019 6:23:32 PM Referred By: REFERRED SELF Confirmed By:Bunny Chowdhury
--- NOTE | 2019-09-13 18:59 | Hospitalist Progress Note ---
Date of Service September 13, 2019 Assessment & Plan (1) CHF (congestive heart failure): Presented with dyspnea and hypoxia. Checks x-ray demonstrated pulmonary edema. Acute on chronic CHF. Cardiology consulted. Check echocardiogram. Continue diuretics. (2) CAD (coronary artery disease): No anginal symptoms. Troponins slightly elevated, trending downward-demand ischemia versus non-STEMI. Continue aspirin, metoprolol, statin. (3) Aortic stenosis: Check echocardiogram. Management per Cardiology. (4) Acute hypoxemic respiratory failure: Presented with acute hypoxic respiratory failure secondary to pulmonary edema. Supplemental oxygen as necessary. (5) Hypomagnesemia: Serum magnesium 0.8. Received replacement. Magnesium today 2.4. Hypomagnesemia could be secondary to PPI. Follow. (6) DVT prophylaxis: Subcutaneous enoxaparin. Follow. (7) Discharge planning issues: Anticipated discharge to home. Family Practice follow-up with Dr. Salas Ferrera. Cardiology follow-up. Admission and Anticipated Discharge Date Admission Date: September 12, 2019 Subjective Recheck for CHF and other problems. Patient seen in their room around 1410. Admitted last night with CHF and hypoxic respiratory failure. Received IV furosemide with improvement. Less short of breath today. No chest pain. Anxious to go home, but encouraged to stay at least another 24 hours by Cardiology. Review of Systems: Constitutional- no fever. Cardiac- as noted above. Pulmonary- no cough. GI- no nausea, vomiting, diarrhea, melena, hematochezia. - no urinary symptoms. Otherwise, as noted above. Physical Exam Constitutional: no acute distress Respiratory: no respiratory distress Auscultation: + rales (bibasilar) Cardiovascular: Rate/Rhythm: regular rate and regular rhythm (with ectopy) Heart Sounds: + murmur (III/ sys murmur at base); no gallop (none appreciated) and no cardiac rub Vessels: + JVD Extremities: no calf tenderness and no edema Gastrointestinal (Abdomen): normal bowel sounds, soft, nontender, no hepatosplenomegaly Skin: no rashes, warm and dry Psychiatric: Orientation: alert and oriented x 3 Results & Data ([facility]) Vital Signs (Past 12 Hours) Vital Signs Temp Pulse Pulse Resp BP Pulse Ox 09/13/19 15:33 36.6 C 72 18 151/80 H 93 09/13/19 14:50 67 09/13/19 11:30 36.3 C L 69 20 125/65 95 09/13/19 07:49 94 09/13/19 07:34 36.4 C L 69 22 127/71 97 09/13/19 07:21 71 Laboratory Results Laboratory Results - last 24 hr 09/12/19 09/12/19 09/12/19 21:45 21:45 21:45 WBC 9.39 RBC 4.08 L Hgb 12.0 L Hct 35.9 L MCV 88.0 MCH 29.4 MCHC 33.4 RDW Std Deviation 47.9 H RDW Coeff of Deborah 14.9 H Plt Count 211 MPV 10.3 Immature Gran % (Auto) 0.1 Neut % (Auto) 87.7 Lymph % (Auto) 9.4 [place] % (Auto) 2.1 Eos % (Auto) 0.4 Baso % (Auto) 0.3 Immature Gran # (Auto) 0.01 Neut # (Auto) 8.23 H Lymph # (Auto) 0.88 L [place] # (Auto) 0.20 Eos # (Auto) 0.04 Baso # (Auto) 0.03 PT INR APTT PTT Ratio VBG pH VBG pCO2 VBG pO2 VBG HCO3 VBG O2 Saturation VBG Base Excess Barometric Pressure Sodium 135 L Potassium 3.5 Chloride 104 Carbon Dioxide 24 Anion Gap 7.0 BUN 15 Creatinine 1.01 Est Cr Clr Drug Dosing Not Reportable Est GFR ( Amer) 82.8 Est GFR (Non-Af Amer) 71.4 BUN/Creatinine Ratio 15.0 Glucose 150 H Estimat Average Glucose 131 Hemoglobin A1c 6.2 H Calcium 8.1 L Magnesium 0.8 L* Total Bilirubin 0.4 AST 27 ALT 31 Alkaline Phosphatase 99 Troponin I 0.031 NT-Pro-B Natriuret Pep 4592 H Total Protein 7.6 Albumin 3.6 Globulin 4.0 Albumin/Globulin Ratio 0.9 Lipase 64 L TSH 0.665 Influenza Type A Ag Influenza Type B Ag 09/12/19 09/12/19 09/12/19 22:05 22:12 22:12 WBC RBC Hgb Hct MCV MCH MCHC RDW Std Deviation RDW Coeff of Deborah Plt Count MPV Immature Gran % (Auto) Neut % (Auto) Lymph % (Auto) [place] % (Auto) Eos % (Auto) Baso % (Auto) Immature Gran # (Auto) Neut # (Auto) Lymph # (Auto) [place] # (Auto) Eos # (Auto) Baso # (Auto) PT 11.6 INR 1.1 APTT 29.1 PTT Ratio 1.0 VBG pH 7.42 H VBG pCO2 39 VBG pO2 47 VBG HCO3 25 VBG O2 Saturation 81.0 VBG Base Excess 0.4 Barometric Pressure 733.7 Sodium Potassium Chloride Carbon Dioxide Anion Gap BUN Creatinine Est Cr Clr Drug Dosing Est GFR ( Amer) Est GFR (Non-Af Amer) BUN/Creatinine Ratio Glucose Estimat Average Glucose Hemoglobin A1c Calcium Magnesium Total Bilirubin AST ALT Alkaline Phosphatase Troponin I NT-Pro-B Natriuret Pep Total Protein Albumin Globulin Albumin/Globulin Ratio Lipase TSH Influenza Type A Ag Neg for Influ A Influenza Type B Ag Neg for Influ B 09/13/19 09/13/19 09/13/19 05:18 05:18 12:44 WBC 7.87 RBC 3.86 L Hgb 11.5 L Hct 34.5 L MCV 89.4 MCH 29.8 MCHC 33.3 RDW Std Deviation 48.4 H RDW Coeff of Deborah 15.0 H Plt Count 222 MPV 10.1 Immature Gran % (Auto) 0.3 Neut % (Auto) 77.6 Lymph % (Auto) 15.2 [place] % (Auto) 6.7 Eos % (Auto) 0.1 Baso % (Auto) 0.1 Immature Gran # (Auto) 0.02 Neut # (Auto) 6.10 Lymph # (Auto) 1.20 [place] # (Auto) 0.53 Eos # (Auto) 0.01 Baso # (Auto) 0.01 PT INR APTT PTT Ratio VBG pH VBG pCO2 VBG pO2 VBG HCO3 VBG O2 Saturation VBG Base Excess Barometric Pressure Sodium 135 L Potassium 4.0 Chloride 102 Carbon Dioxide 28 Anion Gap 5.0 BUN 17 Creatinine 1.11 Est Cr Clr Drug Dosing 58.5 Est GFR ( Amer) 73.8 Est GFR (Non-Af Amer) 63.7 BUN/Creatinine Ratio 15.5 Glucose 135 H Estimat Average Glucose Hemoglobin A1c Calcium 8.2 L Magnesium 2.4 Total Bilirubin AST ALT Alkaline Phosphatase Troponin I 0.233 H* 0.186 H* NT-Pro-B Natriuret Pep Total Protein Albumin Globulin Albumin/Globulin Ratio Lipase TSH Influenza Type A Ag Influenza Type B Ag ECG Additional Comments: EKG performed at 1239 reviewed and demonstrated NSR at 70 / min, PVC's, first degree AV block, biphasic & inverted T waves laterally. (1) CHF (congestive heart failure) Heart failure chronicity: acute on chronic Heart failure type: combined systolic and diastolic Qualified Code(s): I50.43 - Acute on chronic combined systolic (congestive) and diastolic (congestive) heart failure (2) Aortic stenosis Cardiac valve disease etiology: nonrheumatic Qualified Code(s): I35.0 - Nonrheumatic aortic (valve) stenosis
[2019-09-13] MEDS: ROPINIROLE HCL 0.25 MG TABLET PO SCH (20:39)
[2019-09-13] MEDS: TRAZODONE HCL 100 MG TAB PO SCH (20:39)
[2019-09-13] MEDS: TAMSULOSIN HCL 0.4 MG CAP PO SCH (20:40)
[2019-09-13] MEDS: ATORVASTATIN 40 MG TAB PO SCH (20:41)
[2019-09-14] MEDS: OXYCODONE HCL IR 5 MG TAB (IMMEDIATE RELEASE) PO PRN ×2 (06:02→21:31)
[2019-09-14 06:51] LABS: BUN Creatinine Ratio 20.9 (10-20); Calcium 8.4 mg/dl (8.5-10.1); Creatinine Clr Calc Pharmacy 59.6 ml/min; Est GFR (African American) 77.2; Est GFR (Non-African American) 66.6; Magnesium 2.1 mg/dl (1.8-2.4); Potassium 3.8 mmol/L (3.5-5.1)
--- NOTE | 2019-09-14 07:49 | XRay Report ---
XR chest 1V portable HISTORY: 78 years-old Male CHF acute shortness of breath with congestive heart failure COMPARISON: Chest radiograph 09/12/2019, CTA of the chest 06/02/2019 TECHNIQUE: Portable AP view of the chest FINDINGS: Cardiac silhouette is enlarged. Pulmonary vascular congestion with moderately decreased pulmonary dean ma. Small pleural effusions persist along with mild bibasilar opacities, also improved in the interva l. No pneumothorax. Degenerative changes of the shoulders and spine. Calcified plaque of the thoracic aorta. IMPRESSION: 1. Cardiomegaly and pulmonary vascular congestion with moderately improved pulmonary edema. 2. Small pleural effusions with decreased bibasilar consolidative opacities. ACT 112: Negative or not required by law. The above report was generated using voice recognition software. It may contain grammatical, syntax o r spelling errors. Electronically signed by: Cameron Martel M.D. 09/14/2019 7:47 AM
[2019-09-14] MEDS: ENOXAPARIN INJ 30 MG/0.3 ML SYR SQ SCH (08:07)
[2019-09-14] MEDS: SERTRALINE HCL 100 MG TABLET PO SCH (08:08)
[2019-09-14] MEDS: PANTOprazole 40 MG TAB PO SCH ×2 (08:08→20:04)
[2019-09-14] MEDS: GABAPENTIN 100 MG CAP PO SCH ×3 (08:08→20:04)
[2019-09-14] MEDS: FINASTERIDE 5 MG TAB PO SCH (08:09)
[2019-09-14] MEDS: ISOSORBIDE MONO EXTENDED REL 30 MG TABCR PO SCH (08:09)
[2019-09-14] MEDS: POTASSIUM CHLORIDE 20 MEQ TABCR PO SCH ×2 (08:09→20:06)
[2019-09-14] MEDS: MULTIVITAMIN TAB PO SCH (08:09)
[2019-09-14] MEDS: METOPROLOL SUCC 25MG EXT REL TAB PO SCH (08:09)
[2019-09-14] MEDS: ASPIRIN 81 MG ECTAB PO SCH (08:09)
[2019-09-14] MEDS: lisinopriL 40 MG TAB PO SCH (08:10)
[2019-09-14] MEDS ORDERED: SODIUM CHLORIDE 0.65% NA SOLN 45 ML (OCEAN) ONE (09:59)
--- NOTE | 2019-09-14 11:34 | Cardiology Progress Note ---
Date of Service September 14, 2019 Assessment & Plan (1) Acute on chronic systolic ACC/AHA stage C congestive heart failure: (2) Acute hypoxemic respiratory failure: (3) Non-ST elevation DC (NSTEMI): (4) Aortic stenosis: Volume status improved with IV diuretic therapy. Recommend discontinuat ion of IV Lasix today. Results of recent cardiac studies as well as further decline of LV systolic function discussed with patient at bedside. Risk versus benefit of repeat cardiac catheterization with coronary angiography discussed at length. Patient is agreeable to proceed with cardiac catheterization in a.m. With presence of diminished right femoral pulse, recommend arterial duplex for further evaluation. Previous coronary angiogram films reviewed from 09/2018. N.p.o. except medications after midnight. Subjective Patient seen and examined the bedside. Respiratory status improved. Weight is down approximately 4 kg since admission. Fluid balance remains negative. Renal function is stable. Patient denies chest pain or palpitations. Voices concern regarding results of recent cardiovascular tests. Denies cough, fever, or chills. No orthopnea or paroxysmal nocturnal dyspnea. Review of Systems Review of Systems: All systems reviewed & are unremarkable except as noted in HPI & below Physical Exam Constitutional: well developed, well nourished and + ill appearing Respiratory: Auscultation: + diminished lung sounds (Bases bilaterally); no rales (Bases bilaterally), no rhonchi and no wheezes (Mild end expiratory wheeze) Cardiovascular: Rate/Rhythm: regular rate and regular rhythm Heart Sounds: normal S1, normal S2 and + murmur (2/6 systolic ejection murmur heard best at the right second intercostal space.) Vessels: radial pulses present; no JVD and + femoral pulses abnormal (Diminished right femoral arterial pulse. Palpable left femoral arterial pulse.) Extremities: no edema Gastrointestinal (Abdomen): Inspection/Auscultation: abdomen normal to inspection and normal bowel sounds; abdomen not distended Percussion/Palpation: abdomen soft; abdomen nontender, no guarding and abdomen not rigid Musculoskeletal: no cyanosis or clubbing, extremities motor strength 5/5 Skin: no rashes, warm and dry Neurologic: moves all extremities; no focal motor deficits Psychiatric: A+Ox3, euthymic affect Results & Data Vital Signs (Past 12 Hours) Vital Signs Temp Pulse Pulse Resp BP Pulse Ox 09/14/19 08:16 36.4 C L 73 20 116/68 91 03/22/20 07:35 72 09/14/19 04:30 36.7 C 76 20 137/68 92 09/13/19 23:35 73 (1) Aortic stenosis Cardiac valve disease etiology: nonrheumatic Qualified Code(s): I35.0 - Nonrheumatic aortic (valve) stenosis
--- NOTE | 2019-09-14 13:57 | Ultrasound Report ---
US arterial duplex LE RT HISTORY: 78 years-old Male Diminished right femoral artery pulse. COMPARISON: None TECHNIQUE: Multiple real-time sonographic images of the right lower extremity arterial structures wer e obtained assessing grayscale appearance, color and spectral flow FINDINGS: There is a least moderate mostly calcified plaque noted throughout the right lower extremity arterial structures. Triphasic waveforms are noted within the common femoral, profunda femoris, superficial f emoral, popliteal and peroneal arteries. Blunted monophasic waveforms of the proximal posterior tibia l artery. The mid and distal portions of the posterior tibial artery are not visualized. Biphasic wav eforms within the anterior tibial artery. Monophasic and blunted dorsalis pedis arteries.. Peak systo lic velocity of 210 cm/s noted within the superficial femoral artery. IMPRESSION: 1. Blunted monophasic waveforms of the proximal posterior tibial artery with the mid and distal porti ons of the vessel not visualized, possibly secondary to vessel occlusion versus high-grade stenosis. 2. Blunted monophasic waveforms of the dorsalis pedis artery suggests high-grade stenosis.. ACT 112: Negative or not required by law. The above report was generated using voice recognition software. It may contain grammatical, syntax o r spelling errors. Electronically signed by: Cameron Martel M.D. 09/14/2019 1:56 PM
[2019-09-14] MEDS: LORazepam 0.5 MG TAB PO PRN (14:04)
--- NOTE | 2019-09-14 19:55 | Hospitalist Progress Note ---
Date of Service September 14, 2019 Assessment & Plan (1) CHF (congestive heart failure): Presented with dyspnea and hypoxia. Checks x-ray demonstrated pulmonary edema. Acute on chronic CHF. Cardiology consulted. Echocardiogram showed segmental wall motion abnormalities, overall LVEF 35-40%, moderate , mild-moderate AI, mild-moderate MR. Continue diuretics. (2) CAD (coronary artery disease): No anginal symptoms. Troponins slightly elevated, trending downward-demand ischemia versus non-STEMI. Cardiac cath recommended and anticipated for tomorrow. Continue aspirin, metoprolol, statin. (3) Aortic stenosis: Moderate per echo Management per Cardiology. (4) Acute hypoxemic respiratory failure: Presented with acute hypoxic respiratory failure secondary to pulmonary edema. Supplemental oxygen as necessary. (5) Hypomagnesemia: Serum magnesium 0.8. Received replacement. Magnesium yesterday 2.4. Hypomagnesemia could be secondary to PPI. Follow. (6) Hyperlipidemia: LDL-c = 46. Continue atorvastatin. (7) DVT prophylaxis: Subcutaneous enoxaparin. Follow. (8) Discharge planning issues: Anticipated discharge to home. Family Practice follow-up with Dr. Salas Ferrera. Cardiology follow-up. Admission and Anticipated Discharge Date Admission Date: September 12, 2019 Subjective Recheck for CHF and other problems. Patient seen in their room around 1030. Feels better. No chest pain. Less SOB. Review of Systems: Constitutional- no fever. Cardiac- as noted above. Pulmonary- no cough. GI- no nausea, vomiting, diarrhea, melena, hematochezia. - no urinary symptoms. Otherwise, as noted above. Physical Exam Constitutional: no acute distress Respiratory: no respiratory distress Auscultation: + rales (bibasilar) Cardiovascular: Rate/Rhythm: regular rate and regular rhythm Heart Sounds: + murmur (III/ sys murmur at base); no gallop (none appreciated) and no cardiac rub Vessels: + JVD Extremities: no calf tenderness and no edema Gastrointestinal (Abdomen): normal bowel sounds, soft, nontender, no hepatosplenomegaly Skin: no rashes, warm and dry Psychiatric: Orientation: alert and oriented x 3 Results & Data ([facility]) Vital Signs (Past 12 Hours) Vital Signs Temp Pulse Pulse Resp BP BP Pulse Ox 09/14/19 19:00 36.5 C 73 18 154/73 H 94 09/14/19 16:27 68 09/14/19 15:12 36.8 C 70 18 111/68 93 09/14/19 12:22 36.4 C L 76 20 109/65 98 09/14/19 08:16 36.4 C L 73 20 116/68 91 Laboratory Results Laboratory Results - last 24 hr 09/14/19 05:17 Sodium 137 Potassium 3.8 Chloride 104 Carbon Dioxide 28 Anion Gap 5.0 BUN 22 H Creatinine 1.07 Est Cr Clr Drug Dosing 59.6 Est GFR ( Amer) 77.2 Est GFR (Non-Af Amer) 66.6 BUN/Creatinine Ratio 20.9 H Glucose 107 H Calcium 8.4 L Magnesium 2.1 Triglycerides 158 H Cholesterol 117 LDL Cholesterol, Calc 46 VLDL Cholesterol, Calc 32 HDL Cholesterol 39 Cholesterol/HDL Ratio 3 Diagnostic Findings Chest x-ray- CHF improved. (1) CHF (congestive heart failure) Heart failure chronicity: acute on chronic Heart failure type: combined systolic and diastolic Qualified Code(s): I50.43 - Acute on chronic combined systolic (congestive) and diastolic (congestive) heart failure (2) Aortic stenosis Cardiac valve disease etiology: nonrheumatic Qualified Code(s): I35.0 - Nonrheumatic aortic (valve) stenosis
[2019-09-14] MEDS: ATORVASTATIN 40 MG TAB PO SCH (20:04)
[2019-09-14] MEDS: TAMSULOSIN HCL 0.4 MG CAP PO SCH (20:05)
[2019-09-14] MEDS: TRAZODONE HCL 100 MG TAB PO SCH (20:05)
[2019-09-14] MEDS: ROPINIROLE HCL 0.25 MG TABLET PO SCH (20:06)
[2019-09-15] MEDS: OXYCODONE HCL IR 5 MG TAB (IMMEDIATE RELEASE) PO PRN ×2 (04:59→22:48)
[2019-09-15 06:43] LABS: BUN Creatinine Ratio 22.8 (10-20); Calcium 8.6 mg/dl (8.5-10.1); Creatinine Clr Calc Pharmacy 55.3 ml/min; Est GFR (Non-African American) 60.4; Potassium 4.1 mmol/L (3.5-5.1)
[2019-09-15] MEDS ORDERED: HEPARIN (PORCINE) 1000 UNIT/ML 10 ML (CATH LAB USE ONLY) ONE (07:14)
[2019-09-15] MEDS ORDERED: NiCARDipine HCL INJ 2.5 MG/ML 10 ML AMP ONE (07:14)
[2019-09-15] MEDS ORDERED: MIDAZOLAM HCL 1 MG/ML 2ML VIAL ONE (07:14)
[2019-09-15] MEDS ORDERED: fentaNYL citrate 100 MCG/2 ML VIAL ONE (07:14)
[2019-09-15] MEDS ORDERED: NITROGLYCERIN/D5W 100MCG/ML 20ML SYR ONE (07:15)
--- NOTE | 2019-09-15 08:18 | Pre Anesthesia Assessment ---
Date of Service September 15, 2019 Pre Sedation Assessment Vital Signs Temp Pulse Pulse Resp BP BP Pulse Ox 09/15/19 09:40 68 18 168/68 H 94 09/15/19 09:25 66 18 150/69 H 90 09/15/19 08:06 67 09/15/19 07:31 66 18 129/63 96 09/15/19 03:28 36.4 C L 79 19 147/76 H 94 09/14/19 23:09 36.6 C 80 20 131/64 92 09/14/19 22:19 72 09/14/19 19:00 36.5 C 73 18 154/73 H 94 09/14/19 16:27 68 09/14/19 15:12 36.8 C 70 18 111/68 93 09/14/19 12:22 36.4 C L 76 20 109/65 98 Cardiovascular RRR, no murmur, no edema + S1 normal and + S2 normal no JVD Respiratory + respiratory effort normal no crackles (bases ), no rales, no rhonchi and no wheezes Pre-Sedation Airway Assessment Smoking Status: Current every day smoker Hx Sleep Apnea: No Short, Thick Neck: No Thyromental Distance: > or= 3.5 Finger Breadths Oral Cavity: + WNL Mallampati Class: III ASA: ASA3 NPO Status Date of Last Intake of Fluids: 09/14/19 Time of Last Intake of Fluids: 20:00 Date of Last Intake of Solid Food: 09/14/19 Time of Last Intake of Solid Foods: 20:00 Procedure Planning Contraindications for Sedation: none Current Medications Reviewed: Yes Notes The planned sedation has been discussed with the patient. Informed Consent was obtained. I have identified the patient, determined the appropriateness of sedation and have assessed the patient immediately prior to the procedure. All medicine(s) and interventions are by my order.
--- NOTE | 2019-09-15 09:23 | Post Anesthesia Assessment ---
Date of Service September 15, 2019 Post Sedation Assessment Vital Signs Temp Pulse Pulse Resp BP BP Pulse Ox 09/15/19 09:40 68 18 168/68 H 94 09/15/19 09:25 66 18 150/69 H 90 09/15/19 08:06 67 09/15/19 07:31 66 18 129/63 96 09/15/19 03:28 36.4 C L 79 19 147/76 H 94 09/14/19 23:09 36.6 C 80 20 131/64 92 09/14/19 22:19 72 09/14/19 19:00 36.5 C 73 18 154/73 H 94 09/14/19 16:27 68 09/14/19 15:12 36.8 C 70 18 111/68 93 09/14/19 12:22 36.4 C L 76 20 109/65 98 Recovery Score Activity: Moves 4 extremities Respiration: Deep Breath/Cough Circulation: +/-20% PreAnes Value Consciousness: Fully Awake Oxygen Saturation: > 92% On Room Air Discharge Sedation Level of Care: Fast Track Phase II Post Sedation Plan On clinical assessment, the patient appears to have tolerated the sedation without complications. Patient is recovering as anticipated. Patient will continue to be monitored by nursing and may be discharged when sedation discharge criteria are met per below protocol. Upon Completions of procedure up to 15 minutes continue every 5 minute vital signs and the P.A.R. score; then discharge to a Phase I or Fast Track to Phase II per the following guidelines: * Discharge Patient to appropriate Phase II area if PAR is 8 or greater or return to pre- procedure baseline. The post - procedure orders will be as di rected. * If PAR score is less than 8 or not return to pre-procedure baseline then patient will follow Phase I monitoring till PAR is reached for Phase II. The Phase I may be done in procedure room or may call to secure a Phase I area. * If naloxone or flumazenil are used for reversal, hold in Phase I for continued monitoring from when last reversal dose was given for a minimum of 60 minutes or longer pending the nurse and/or physician discretion of patient condition before discharge to Phase II. Please call the Sedation Physician to re-evaluate and complete post-note for discharge to Phase II area. Do NOT discharge from procedure sedation or Phase 1 until post- sedation evaluation note is complete by procedure /sedation MD Sedation Discharge Instructions to be given to the patient at discharge to home.
--- NOTE | 2019-09-15 09:25 | Cardiac Catheterization ---
Cardiac Cath Procedure Full Procedure Date September 15, 2019 Pre-Procedure Diagnosis Pre-Procedure Diagnosis: Non STEMI and CHF AUC Score AUC Score: 8 Post-Procedure Diagnosis Post-Procedure Diagnosis: Moderate CAD Procedure(s) Performed Procedure(s) Performed: Coronary Angiography Hospital Medical Assistant Devon Harrison DO Export Administrator(s) Marlena PERSONNEL MANAGER Estimated Blood Loss Estimated Blood Loss: 8cc Medication(s) Medication(s): Fentanyl, Heparin, Lidocaine 1%, Nicardipine, Nitroglycerin and Versed Summary of Findings The quality of the study is fair. Patient had difficulty lying still during procedure due to chronic low back pain. Codominant coronary anatomy. The left main is a very short vessel with nearly separate ostia of the left anterior descending and left circumflex arteries. The LAD is a large type III vessel which wraps around the left ventricular apex. The first diagonal branch vessel is totally occluded proximally and could be seen filling late via left to left collaterals. There is a second and third diagonal branch vessel which are of small to moderate caliber demonstrating diffuse mild to moderate luminal irregularities with stenosis ranging from 10 to 30%. The proximal LAD is moderately calcified and mild to moderately diseased with a 30% stenosis followed by a small area of aneurysmal dilatation. The remainder of the LAD demonstrates mild luminal irregularities with stenosis ranging from 10 to 20%. The left circumflex is a large codominant vessel gives rise to a large first obtuse marginal branch vessel which then bifurcates in its midsegment. It then wraps around the AV groove giving rise to 2 small posterior lateral branch vessel and a small posterior descending artery. The left circumflex and its branch vessels demonstrated mild luminal irregularities with stenosis ranging from 10 to 20%. The right coronary artery is a small codominant vessel. Mode rate focal ostial calcification. 60% ostial stenosis noted on initial injections. Patient treated with a total of 200 mcg of intracoronary nitro as well as 1 sublingual nitroglycerin during the procedure. The stenosis improved to approximately 50% with nitrates. There is a 40% proximal stenosis noted. 30% distal stenosis. Small RV marginal branch and posterior descending artery demonstrate mild luminal irregularities without significant stenosis. No EKG changes or angina appreciated. Hemodynamics Rest Ao:: 116/51/77 Final Ao: 132/65/98 LV: N/A Recommendations Recommendations: Medical Therapy and/or Counseling (Continue evidence-based treatment for systolic heart failure. Titrate long-acting nitrates and beta- maximino as tolerated.) Specimens Specimens: None Radiation Exposure (mGy) 1975 Contrast (mls) 110cc Fluids (cc crystalloids) Fluids (cc crystalloids): 97 Nss Anesthesia Moderate sedation. Start 0840. End 0916. Sedation monitor: Adiel TOLENTINO Procedural Complication(s) None Disposition PCU I attest to the content of the Intraoperative Record and any orders documented therein. Any exceptions are noted below. ACC Data: Territory Account Executive Cardiac Status Clinical evaluation leading to the procedure CAD Presenation: Non STEMI Anginal Classification: CCS II Heart Failure: NYHA Class: CCS IV Cardiogenic Shock within 24 Hours: No Cardiac Arrest within 24 Hours: No Imaging Studies Past 6 Months: Yes Stress Studies Past 6 Months: Yes Stress Testing w/SPECT MPI: Yes - Positive and Risk/Extent of Ischemia (High) STEMI OR Non-STEMI Symptom Onset Date: 09/12/19 Symptom Onset Time: 09:40 Coronary Anatomy Dominant: Co-Dominant Left Main (% Stenosis): Normal (Short vessel with near separate ostium's of the left anterior descending and left circumflex arteries.) LAD (% Stenosis): Proximal (30% followed by a focal area of aneurysmal dilatation.), Mid (10-20%) and Distal (10-20%) D1 (% Stenosis): Proximal (100% fills via left to left collaterals) D2 (% Stenosis): Mid (10-20% diffuse) D3 (% Stenosis): Mid (10-20% diffuse) Circumflex (% Stenosis): Proximal (10%) OM1 (% Stenosis): Proximal (10%) L PL1 (% Stenosis): Mid (10%) L PL2 (% Stenosis): Mid (10%) L PDA (% Stenosis): Mid (10%) RCA (% Stenosis): Ostial (Moderate focal calcification, 60% stenosis improving to 50% with addition of nitroglycerin), Proximal (40%) and Distal (30%) R PDA (% Stenosis): Normal AM (% Stenosis): Normal Diagnostic Physicians Name: Devon Harrison DO Status: Urgent Closure Device Percutaneous Entry Location: Radial Closure Device: Radial Band Recommendations: Medical Therapy and/or Counseling (Continue evidence-based treatment for systolic heart failure. Titrate long-acting nitrates and beta- maximino as tolerated.) Intraprocedure Events Significant Disection: No Perforation: No
[2019-09-15] MEDS ORDERED: ACETAMINOPHEN 325 MG TAB PO PRN (09:44)
--- NOTE | 2019-09-15 09:56 | Cardiology Progress Note ---
Date of Service September 15, 2019 Assessment & Plan (1) Acute on chronic systolic ACC/AHA stage C congestive heart failure: (2) Acute hypoxemic respiratory failure: (3) Non-ST elevation TN (NSTEMI): (4) Aortic stenosis: Cardiac catheterization performed today without intervention. Stable mo derate coronary artery disease noted. Recommend titration of isosorbide monohydrate to 60 mg daily. Consider transition of lisinopril to Entresto pending review of repeat renal function panel in 1 week. Continue beta-maximino therapy, Toprol-XL 25 mg daily. With decline in left ventricular ejection fraction patient will require maintenance diuretic therapy in the outpatient setting. Recommend Lasix 40 mg daily to begin tomorrow, 09/16/2019. Repeat basic metabolic panel in 1 week. Outpatient heart failure clinic follow-up in 1 week. Post-procedural activity restrictions: ACTIVITY RECOMMENDATIONS: It is common to feel weak and fatigue for a few days. * Do not drive or operate any motorized equipment for the next three days. * Limit stair usage (2 or 3 trips a day only) for the next three days. * Do not lift anything heavier than 10 pounds for the next three days. * Do not engage in vigorous exercise or any sports for the next five days. * You may shower the day after your procedure, but do not immerse the area for three days. Cleanse the site gently with soap and water. SPECIAL CARE INSTRUCTIONS: * You may replace the pressure dressing or band-aid the morning after the procedure. * After your procedure, it is normal to have a small bruise or small lump at the site. Examine your site daily for any change in the bruise or lump, redness, swelling, drainage or numbness. Notify your doctor if any change. BLEEDING: * If there is a small amount of bleeding at the site, lie down and apply firm pressure with a clean cloth for ten minutes. When the bleeding stops, lie quietly keeping the procedure limb straight for six hours. Notify your doctor as soon as possible. * If the bleeding does not stop after ten minutes or if there is a large amount of bleeding or spurting, call 911 immediately. Continue to lie down and hold firm pressure until help arrives. SKIN IRRITATION: * You may experience some redness and/or swelling in the area where radiation was administered. If any skin irritation occurs, please contact your family physician. Subjective Patient seen and examined the bedside. Cardiac catheterization demonstrating stable moderate coronary artery disease. No significant change in anatomy when compared to prior angiogram performed 09/2018. Patient tolerated procedure well. Shortness of breath markedly improved with diuretic therapy since admission. Lasix on hold this morning in anticipation of cardiac catheterization. Review of Systems Review of Systems: All systems reviewed & are unremarkable except as noted in HPI & below Physical Exam Constitutional: well developed, well nourished and + ill appearing ENMT: Mallampati Class: III Respiratory: normal respiratory effort Auscultation: + diminished lung sounds (Bases bilaterally); no crackles (bases ), no rales, no rhonchi and no wheezes Cardiovascular: RRR, no murmur, no edema Rate/Rhythm: regular rate and regular rhythm Heart Sounds: normal S1, normal S2 and + murmur (2/6 systolic ejection murmur heard best at the right second intercostal space.) Vessels: radial pulses present; no JVD and + femoral pulses abnormal (Diminished right femoral arterial pulse. Palpable left femoral arterial pulse.) Extremities: no edema Gastrointestinal (Abdomen): Inspection/Auscultation: abdomen normal to inspection and normal bowel sounds; abdomen not distended Percussion/Palpation: abdomen soft; abdomen nontender, no guarding and abdomen not rigid Musculoskeletal: no cyanosis or clubbing, extremities motor strength 5/5 Skin: no rashes, warm and dry Neurologic: moves all extremities; no focal motor deficits Psychiatric: A+Ox3, euthymic affect Results & Data Vital Signs (Past 12 Hours) Vital Signs Temp Pulse Pulse Resp BP BP Pulse Ox 09/15/19 09:40 68 18 168/68 H 94 09/15/19 09:25 66 18 150/69 H 90 09/15/19 08:06 67 09/15/19 07:31 66 18 129/63 96 09/15/19 03:28 36.4 C L 79 19 147/76 H 94 09/14/19 23:09 36.6 C 80 20 131/64 92 09/14/19 22:19 72 (1) Aortic stenosis Cardiac valve disease etiology: nonrheumatic Qualified Code(s): I35.0 - Nonrheumatic aortic (valve) stenosis
[2019-09-15] MEDS: ISOSORBIDE MONO EXTENDED REL 30 MG TABCR PO SCH (10:04)
[2019-09-15] MEDS: GABAPENTIN 100 MG CAP PO SCH ×3 (10:40→20:24)
[2019-09-15] MEDS: POTASSIUM CHLORIDE 20 MEQ TABCR PO SCH ×2 (10:40→20:25)
[2019-09-15] MEDS: MULTIVITAMIN TAB PO SCH (10:40)
[2019-09-15] MEDS: ASPIRIN 81 MG ECTAB PO SCH (10:41)
[2019-09-15] MEDS: SERTRALINE HCL 100 MG TABLET PO SCH (10:41)
[2019-09-15] MEDS: PANTOprazole 40 MG TAB PO SCH ×2 (10:41→20:25)
[2019-09-15] MEDS: lisinopriL 40 MG TAB PO SCH (10:41)
[2019-09-15] MEDS: METOPROLOL SUCC 25MG EXT REL TAB PO SCH (10:41)
[2019-09-15] MEDS: FINASTERIDE 5 MG TAB PO SCH (10:41)
[2019-09-15] MEDS: ISOSORBIDE MONO EXTENDED REL 60 MG TABCR PO SCH (11:14)
[2019-09-15] MEDS: TRAZODONE HCL 100 MG TAB PO SCH (20:24)
[2019-09-15] MEDS: TAMSULOSIN HCL 0.4 MG CAP PO SCH (20:24)
[2019-09-15] MEDS: ROPINIROLE HCL 0.25 MG TABLET PO SCH (20:25)
[2019-09-15] MEDS: ATORVASTATIN 40 MG TAB PO SCH (20:25)
--- NOTE | 2019-09-15 21:32 | Hospitalist Progress Note ---
Date of Service September 15, 2019 Assessment & Plan (1) CHF (congestive heart failure): Presented with dyspnea and hypoxia. Checks x-ray demonstrated pulmonary edema. Acute on chronic CHF. Cardiology consulted. Echocardiogram showed segmental wall motion abnormalities, overall LVEF 35-40%, moderate , mild-moderate AI, mild-moderate MR. Continue diuretics. (2) CAD (coronary artery disease): No anginal symptoms. Troponins slightly elevated, trending downward-demand ischemia versus non-STEMI. Cardiac cath showed multivessel disease, no targets for intervention. Increase isosorbide mononitrate to 60 mg daily. Continue aspirin, metoprolol, statin. (3) Aortic stenosis: Moderate per echo Management per Cardiology. (4) Acute hypoxemic respiratory failure: Presented with acute hypoxic respiratory failure secondary to pulmonary edema. Supplemental oxygen as necessary. (5) Hypomagnesemia: Serum magnesium 0.8. Received replacement. Magnesium 2.1 on 09/13. Hypomagnesemia could be secondary to PPI. Follow. (6) Hyperlipidemia: LDL-c = 46. Continue atorvastatin. (7) DVT prophylaxis: Subcutaneous enoxaparin. Follow. (8) Discharge planning issues: Anticipated discharge to home. [facility] Practice follow-up with Dr. Salas Ferrera. Cardiology follow-up. Admission and Anticipated Discharge Date Admission Date: September 12, 2019 Subjective Recheck for CHF and other problems. Patient seen in their room around 1400. Cardiac cath went well today; no PCI, medical management recommended. No chest pain. Less SOB. Review of Systems: Constitutional- no fever. Cardiac- as noted above. Pulmonary- no cough. GI- no nausea, vomiting, diarrhea, melena, hematochezia. - no urinary symptoms. Otherwise, as noted above. Physical Exam Constitutional: no acute distress Respiratory: no respiratory distress Auscultation: + rales (bibasilar) Cardiovascular: Rate/Rhythm: regular rate and regular rhythm Heart Sounds: + murmur (III/ sys murmur at base); no gallop (none appreciated) and no cardiac rub Vessels: + JVD Extremities: no calf tenderness and no edema Gastrointestinal (Abdomen): normal bowel sounds, soft, nontender, no hepatosplenomegaly Musculoskeletal: right radial cath site without hematoma Skin: no rashes, warm and dry Psychiatric: Orientation: alert and oriented x 3 Results & Data ([place]) Vital Signs (Past 12 Hours) Vital Signs Temp Pulse Pulse Resp BP Pulse Ox 09/15/19 19:11 36.4 C L 67 18 123/65 95 09/15/19 15:29 36.4 C L 70 18 115/61 94 09/15/19 15:01 71 09/15/19 12:53 79 20 123/63 93 09/15/19 12:25 71 20 118/63 92 09/15/19 11:59 36.4 C L 71 20 104/60 93 09/15/19 11:45 72 20 149/73 H 98 09/15/19 11:30 36.7 C 73 18 136/62 97 09/15/19 11:13 36.3 C L 70 20 149/64 H 97 09/15/19 11:03 63 14 140/67 95 09/15/19 10:45 71 16 142/66 H 94 09/15/19 10:29 36.3 C L 69 20 144/61 H 93 09/15/19 10:15 73 20 143/74 H 93 09/15/19 09:59 63 20 153/76 H 93 09/15/19 09:40 68 18 168/68 H 94 Laboratory Results 09/15/19 05:23 (1) CHF (congestive heart failure) Heart failure chronicity: acute on chronic Heart failure type: combined systolic and diastolic Qualified Code(s): I50.43 - Acute on chronic combined systolic (congestive) and diastolic (congestive) heart failure (2) Aortic stenosis Cardiac valve disease etiology: nonrheumatic Qualified Code(s): I35.0 - Nonrheumatic aortic (valve) stenosis
[2019-09-15] MEDS: ACETAMINOPHEN 325 MG TAB PO PRN (22:48)
[2019-09-16] MEDS: PANTOprazole 40 MG TAB PO SCH (08:00)
[2019-09-16] MEDS: POTASSIUM CHLORIDE 20 MEQ TABCR PO SCH (08:00)
[2019-09-16] MEDS: ASPIRIN 81 MG ECTAB PO SCH (08:01)
[2019-09-16] MEDS: SERTRALINE HCL 100 MG TABLET PO SCH (08:01)
[2019-09-16] MEDS: GABAPENTIN 100 MG CAP PO SCH (08:01)
[2019-09-16] MEDS: FINASTERIDE 5 MG TAB PO SCH (08:02)
[2019-09-16] MEDS: ISOSORBIDE MONO EXTENDED REL 60 MG TABCR PO SCH (08:02)
[2019-09-16] MEDS: MULTIVITAMIN TAB PO SCH (08:02)
[2019-09-16] MEDS: METOPROLOL SUCC 25MG EXT REL TAB PO SCH (08:02)
[2019-09-16] MEDS: lisinopriL 40 MG TAB PO SCH (08:02)
[2019-09-16 08:20] LABS: Magnesium 1.9 mg/dl (1.8-2.4)
[2019-09-16] MEDS ORDERED: FUROSEMIDE 40 MG TAB PO SCH (09:00)
[2019-09-16] MEDS: OXYCODONE HCL IR 5 MG TAB (IMMEDIATE RELEASE) PO PRN (09:04)
--- NOTE | 2019-09-16 10:33 | Hospitalist Progress Note ---
Date of Service September 16, 2019 Assessment & Plan (1) CHF (congestive heart failure): Presented with dyspnea and hypoxia. Checks x-ray demonstrated pulmonary edema. Acute on chronic CHF. Cardiology consulted. Echocardiogram showed segmental wall motion abnormalities, overall LVEF 35-40%, moderate , mild-moderate AI, mild-moderate MR. Discharge on furosemide 40 mg daily. CHF instructions given. (2) CAD (coronary artery disease): No anginal symptoms. Troponins slightly elevated, trending downward-demand ischemia versus non-STEMI. Cardiac cath showed multivessel disease, no targets for intervention. Increased isosorbide mononitrate to 60 mg daily. Continue aspirin, metoprolol, statin. (3) Aortic stenosis: Moderate per echo Follow-up management per Cardiology. (4) Acute hypoxemic respiratory failure: Presented with acute hypoxic respiratory failure secondary to pulmonary edema. Supplemental oxygen as necessary. (5) Hypomagnesemia: Serum magnesium 0.8. Received replacement. Magnesium today = 1.9. Hypomagnesemia could be secondary to PPI. Discharge on Mg oxide 400 BID. Follow. (6) Hyperlipidemia: LDL-c = 46. Continue atorvastatin. (7) DVT prophylaxis: Subcutaneous enoxaparin. Follow. (8) Discharge planning issues: Discharge to home. Family Practice follow-up with Dr. Salas Ferrera. Cardiology follow-up with Lata Munoz PA-C. Admission and Anticipated Discharge Date Admission Date: September 12, 2019 Subjective Recheck for CHF and other problems. Patient seen in their room around 1020. Doing well. No chest pain or SOB. Ready to go home. Review of Systems: Constitutional- no fever. Cardiac- as noted above. Pulmonary- no cough. GI- no nausea, vomiting, diarrhea, melena, hematochezia. - no urinary symptoms. Otherwise, as noted above. Physical Exam Constitutional: no acute distress Respiratory: no respiratory distress Auscultation: + rales (bibasilar) Cardiovascular: Rate/Rhythm: regular rate and regular rhythm Heart Sounds: + murmur (III/ sys murmur at base); no gallop (none appreciated) and no cardiac rub Vessels: + JVD Extremities: no calf tenderness and no edema Gastrointestinal (Abdomen): normal bowel sounds, soft, nontender, no hepatosplenomegaly Skin: no rashes, warm and dry Psychiatric: Orientation: alert and oriented x 3 Results & Data ([facility]) Vital Signs (Past 12 Hours) Vital Signs Temp Pulse Resp BP Pulse Ox 09/16/19 08:09 74 117/68 09/16/19 07:26 36.9 C 77 18 139/74 96 09/16/19 04:00 36.4 C L 77 17 148/80 H 91 09/15/19 23:08 36.4 C L 64 19 132/69 94 Laboratory Results Laboratory Results - last 24 hr 09/16/19 07:57 Potassium 4.0 Magnesium 1.9 (1) CHF (congestive heart failure) Heart failure chronicity: acute on chronic Heart failure type: combined systolic and diastolic Qualified Code(s): I50.43 - Acute on chronic combined systolic (congestive) and diastolic (congestive) heart failure (2) Aortic stenosis Cardiac valve disease etiology: nonrheumatic Qualified Code(s): I35.0 - Nonrheumatic aortic (valve) stenosis
--- NOTE | 2019-09-16 11:17 | Discharge Summary ---
Date of Service Date of Admission: 09/12/19 Date of Discharge: 09/16/19 Admission HPI Per Admitting Provider History obtained from patient, family, and records. Medical history significant for chronic systolic heart failure EF 45%, TTE 2019), CAD status post angioplasty, valvular heart disease (moderate aortic stenosis/aortic regurgitation), hypertension, hyperlipidemia, COPD, chronic anemia (baseline hemoglobin of 12 ), prediabetes as per records, ongoing tobacco abuse, past alcohol abuse. Recent confinement last May 2019 for hypertensive urgency. Patient left hospital AGAINST MEDICAL ADVICE. 2 months ago, patient complaining of chest pain at Cardiology appointment. l Patient declined confinement as per records. Nuclear stress test demonstrated small area of apical posterior lateral ischemia with mild diffuse hypokinesis. Intermittent chest tightness complaints on outpatient [facility] Cardiology follow-up visit last month. Updated TTE result from 07/2019 showed EF 45 to 49%. Mild diffuse LV hypokinesis. Diastolic dysfunction, concentric LVH. Moderate aortic valve stenosis. Moderate aortic valve regurgitation. Mild mitral regurgitation. Mild tricuspid regurgitation. Option of medical management versus cardiac catheterization for anginal symptoms discussed with patient. Patient chose medical management consisting of addition of Toprol XL and isosorbide to her regimen. 3 days history of shortness of breath even at rest and worse on lying down. No unusual cough symptoms. No chest pain. Compliant with home medications. Does not think he is retaining fluid. Seen at PCPs office 3 days ago. Breo Ellipta inhaler prescribed for COPD. Prednisone later added to regimen without improvement of symptoms. Patient brought to the ER for evaluation. Received IV Lasix for CHF. Principal Diagnosis acute on chronic left ventricular systolic heart failure OTHER ACUTE / NEW DIAGNOSES: acute hypoxic respiratory failure non-ST elevation myocardial infarction aortic stenosis, moderate peripheral vascular disease hypomagnesemia Discharge Data Allergies Allergy/AdvReac Type Severity Reaction Status Date / Time cefaclor Allergy Intermediate swelling Verified 09/12/19 22:50 aspirin Allergy Mild bleeding Verified 09/12/19 22:50 ulcer (tolerates 81mg) Consultations 09/12/19 22:59 ED Decision to Admit Stat 09/13/19 00:32 Consult Cardiology Routine Consult Case Management - Discharge Planning Routine 09/15/19 07:00 Consult Cardiac Catheterization Routine Procedures Performed Operation Date: 09/15/19 08:00 Actual Procedures s Cineradiography w/Routine Exam - Devon Harrison, DO p Cath, Left with Cors and Albert Osorio O DO [place] Ordered Studies 09/14/19 11:54 US arterial duplex LE RT Urgent 09/15/19 06:36 CL Cath Imgs for PACS use only Routine Hospital Course (1) CHF (congestive heart failure): Presented with dyspnea and hypoxia. Checks x-ray demonstrated pulmonary edema. Acute on chronic CHF. Cardiology consulted. Echocardiogram showed segmental wall motion abnormalities, overall LVEF 35-40%, moderate , mild-moderate AI, mild-moderate MR. Discharged on furosemide 40 mg daily. CHF instructions given. (2) CAD (coronary artery disease): No anginal symptoms. Troponins slightly elevated, trending downward-demand ischemia versus non-STEMI. Cardiac cath showed multivessel disease, no targets for intervention. Increased isosorbide mononitrate to 60 mg daily. Continue aspirin, metoprolol, statin. (3) Aortic stenosis: Moderate per echo Follow-up management per Cardiology. (4) Acute hypoxemic respiratory failure: Presented with acute hypoxic respiratory failure secondary to pulmonary edema. Supplemental oxygen as necessary. (5) Hypomagnesemia: Serum magnesium 0.8. Received replacement. Magnesium day of discharge 1.9. Hypomagnesemia could be secondary to PPI. Discharge on Mg oxide 400 BID. Follow. (6) Hyperlipidemia: LDL-c = 46. Continue atorvastatin. (7) Peripheral vascular disease: Arterial duplex of right lower extremity performed in preparation for cardiac catheterization. Plaque was noted throughout the right lower extremity arteries. Triphasic waveforms were noted within the common femoral, profunda femoris, superficial femoral, popliteal, and peroneal arteries. Blunted monophasic waveforms noted in the proximal posterior tibial artery. Mid and distal portions of the posterior tibial artery not visualized. Biphasic waveforms noted within the anterior tibial artery. Monophasic and blunted dorsalis pedis arteries. Ongoing risk factor modification. Referral to Vascular Surgery if symptoms develop. (8) DVT prophylaxis: Subcutaneous enoxaparin. Follow. (9) Discharge planning issues: Discharged to home. Family Practice follow-up with Dr. Salas Ferrera. Cardiology follow-up with Lata Munoz PA-C. Total Time Total Time Spent Total Time Spent (In Minutes): 40 Discharge Plan Discharge Items Patient Disposition: Home - Self-Care Reason For Visit: trouble breathing Discharge Diagnosis: congestive heart failure (fluid in lungs) Activity: As commented below Activity Comment: Gradually increase activity. Rest when necessary. Non-emergency contact: Primary Care Provider, Hospitalist and Chemical Engineering Professor Call non-emergency contact if: you have any medication questions and your symptoms worsen Follow-up/Referrals: Tyler Pennington MD [Physician] - (10/24/2019 1:00 PM Tyler Pennington MD) Salas Gibbons DO [Primary Care Provider] - 09/19/19 11:10 am (09/19/2019 11:10 AM Provider Salas Gibbons DO [facility] ) Lata Munoz PA-C [Physician [employer]] - (09/22/2019 11:00 AM Lata Munoz PA-C) Diet: Heart Healthy Addtl Attending Provider Instructions: MEDICATION CHANGES: furosemide (Lasix) 40 mg daily in the morning potassium chloride 10 mEq twice a day magnesium oxide 400 mg twice a day isosorbide mononitrate (Imdur) 60 mg daily (new dose) SUMMARY OF TEST RESULTS: Flu test was negative. Chest x-ray showed fluid in lungs (congestive heart failure). Heart catheterization showed some blockage in the coronary arteries, but no need for stents or bypass surgery. Magnesium level was low. OTHER INSTRUCTIONS: Seek medical attention if you have: * temperature above 101 * chest pain or trouble breathing * abdominal pain, nausea, vomiting * diarrhea, dark stools or bloody stools * any unanswered questions or concerns Call 911 if symptoms are severe. Please take good care of yourself. Call if you have any questions or problems. You can reach a [facility] hospitalist on duty at [facility] 24 hours a day by calling [phone]. My cell # is [phone]. INSTRUCTIONS FOR CONGESTIVE HEART FAILURE Call 911 and go to the Emergency Room if: * You have tightness or pain in your chest that does not go away with rest or Nitroglycerin * You are very short of breath even with rest Call your doctor if any of the following symptoms or problems start or get worse: * Shortness of breath or difficulty breathing * Wake up at night short of breath * Chest pain * Cough * Swelling of your hands, fee, or legs * More fatigued or tired with your normal activity * Palpitations - sudden fast heart beats WEIGHT * Weigh yourself every morning after using the bathroom. * Use the same scale. * Wear the same amount of clothing. * Write your weight down on your chart. * Call your doctor if you gain more than 2-3 pounds in 1-2 days. MEDICATIONS * Use this discharge instruction sheet for instructions. * Take your medications at the time your doctor ordered. * Do not skip a dose of your medicines. * If you miss a dose of medicine, take as soon as possible, but DO NOT DOUBLE A DOSE. * Read your medicine information when you get home. * Know all of the side effects of your medicine. * Call your doctor's office if you have any side effects. * Be sure all of your doctors know what medicine and herbs you take (including cold, flu, and herbal medicine). * Pain Medicine: If you do not get relief from your pain, please call your doctor for help. Take the following with you to your follow-up doctor appointments: * Weight Chart * Medication List * List of questions Do not drink excessive alcohol, beer or wine. Pending Studies at Discharge: No Stand-Alone Forms: My [facility] [place], Smoking Cessation Medications and DC Order Prescriptions: New furosemide 40 mg Tablet 40 mg PO QAM Qty: 30 RF: 5 isosorbide mononitrate 60 mg Tablet Extended Release 24 Hr 60 mg PO QAM Qty: 30 RF: 5 potassium chloride 10 mEq tablet,ER particles/crystals 10 meq PO BID Qty: 60 RF: 5 magnesium oxide 400 mg magnesium tablet 400 mg PO BID Qty: 60 RF: 5 Continued multivitamin Tablet 1 tab PO QAM RF: 0 atorvastatin [Lipitor] 80 mg Tablet 80 mg PO HS RF: 0 sertraline [Zoloft] 100 mg Tablet 100 mg PO QAM RF: 0 tamsulosin [Flomax] 0.4 mg Capsule 0.4 mg PO HS RF: 0 trazodone 100 mg Tablet 100 mg PO HS RF: 0 ropinirole 0.5 mg Tablet 0.5 mg PO HS RF: 0 nitroglycerin [Nitrostat] 0.4 mg Tablet, Sublingual 0.4 mg sublingual UD PRN (Reason: Chest Pain) RF: 0 gabapentin [Neurontin] 100 mg Capsule 100 mg PO TID RF: 0 fluticasone propionate [Flonase Allergy Relief] 50 mcg/actuation [place],Suspension 2 spray INTRANASAL DAILY RF: 0 finasteride [Proscar] 5 mg Tablet 5 mg PO QAM RF: 0 loratadine [Claritin] 10 mg Tablet 10 mg PO DAILY PRN (Reason: Allergy Symptoms) RF: 0 omeprazole 20 mg Tablet,Delayed Release (Dr/Ec) 20 mg PO BID RF: 0 hydrocortisone [Proctosol HC] 2.5 % cream with perineal applicator 1 applic OK QPM PRN (Reason: Hemorrhoids) RF: 0 oxycodone-acetaminophen [Percocet] 5-325 mg tablet 1 tab PO Q6H PRN (Reason: Pain) RF: 0 lisinopril [Zestril] 20 mg tablet 40 mg PO DAILY RF: 0 aspirin [Ecotrin Low Strength] 81 mg tablet,delayed release (DR/EC) 162 mg PO QAM RF: 0 metoprolol succinate [Toprol XL] 25 mg tablet extended release 24 hr 25 mg PO QAM RF: 0 Breo Ellipta 100-25 mcg/dose blister with device 1 inh INHALATION DAILY RF: 0 oxycodone [Roxicodone] 5 mg tablet 5 - 10 mg PO Q4H PRN (Reason: Pain) RF: 0 acetaminophen [Tylenol Extra Strength] 500 mg tablet 1,000 mg PO Q8 PRN (Reason: Pain) RF: 0 Discontinued prednisone 20 mg tablet 0 mg PO DAILY RF: 0 isosorbide mononitrate 30 mg tablet extended release 24 hr 30 mg PO QAM RF: 0 Discharge Orders: Discharge Order (Routine); Ordered 09/16/19 Ordered By: Nando Rendon/Other Patient Handouts: ED Cardiac Cath Post Bleed Hematom, Furosemide tablets, A1C Admission Data Admit Date/Time: 09/12/19 23:39 Attending Provider: Nando Ann Admit Provider: Kenny Dye Primary Care Provider: Salas Gibbons Other Providers: Tyler Pennington ; Kenny Dye ; Devon Harrison Other Interventions: Discharge Summary Assessment (RN) Last Done: 09/16/19 11:40 DC Date/Time DO NOT enter until pt leaves facility: 09/16/19 13:30
--- NOTE | 2019-09-16 12:56 | Cardiology Progress Note ---
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 Isosorbide monohydrate titrated to 60 mg daily. Continue Lasix 40 mg daily in the outpatient setting. Repeat basic metabolic panel in 1 week. Consider transition of lisinopril to Entresto pending review of repeat BMP. Toprol-XL 25 mg daily will be continued as previously ordered. Close cardiology follow-up with heart failure clinic in 1 week. Appointment scheduled 09/22/2019. Post catheterization activity restrictions: ACTIVITY RECOMMENDATIONS: It is common to feel weak and fatigue for a few days. * Do not drive or operate any motorized equipment for the next three days. * Limit stair usage (2 or 3 trips a day only) for the next three days. * Do not lift anything heavier than 10 pounds for the next three days. * Do not engage in vigorous exercise or any sports for the next five days. * You may shower the day after your procedure, but do not immerse the area for three days. Cleanse the site gently with soap and water. SPECIAL CARE INSTRUCTIONS: * You may replace the pressure dressing or band-aid the morning after the procedure. * After your procedure, it is normal to have a small bruise or small lump at the site. Examine your site daily for any change in the bruise or lump, redness, swelling, drainage or numbness. Notify your doctor if any change. BLEEDING: * If there is a small amount of bleeding at the site, lie down and apply firm pressure with a clean cloth for ten minutes. When the bleeding stops, lie quietly keeping the procedure limb straight for six hours. Notify your doctor as soon as possible. * If the bleeding does not stop after ten minutes or if there is a large amount of bleeding or spurting, call 911 immediately. Continue to lie down and hold firm pressure until help arrives. SKIN IRRITATION: * You may experience some redness and/or swelling in the area where radiation was administered. If any skin irritation occurs, please contact your family physician. Subjective Patient seen and examined the bedside. Feeling well from a cardiovascular perspective. Notes mild residual nonproductive cough. No lightheadedness, diz ziness, syncope, or near syncope. Denies chest discomfort or heaviness. Anxious for discharge. Review of Systems Review of Systems: All systems reviewed & are unremarkable except as noted in HPI & below Physical Exam Constitutional: well developed, well nourished and + ill appearing ENMT: Mallampati Class: III Respiratory: normal respiratory effort Auscultation: + diminished lung sounds (Bases bilaterally); no crackles (bases ), no rales, no rhonchi and no wheezes Cardiovascular: RRR, no murmur, no edema Rate/Rhythm: regular rate and regular rhythm Heart Sounds: normal S1, normal S2 and + murmur (2/6 systolic ejection murmur heard best at the right second intercostal space.) Vessels: radial pulses present (No ecchymosis or hematoma of the right anterior wrist.); no JVD and + femoral pulses abnormal (Diminished right femoral arterial pulse. Palpable left femoral arterial pulse.) Extremities: no edema Gastrointestinal (Abdomen): Inspection/Auscultation: abdomen normal to inspection and normal bowel sounds; abdomen not distended Percussion/Palpation: abdomen soft; abdomen nontender, no guarding and abdomen not rigid Musculoskeletal: no cyanosis or clubbing, extremities motor strength 5/5 Skin: no rashes, warm and dry Neurologic: moves all extremities; no focal motor deficits Psychiatric: A+Ox3, euthymic affect Results & Data Vital Signs (Past 12 Hours) Vital Signs Temp Pulse Pulse Resp BP BP Pulse Ox 09/16/19 11:42 36.8 C 69 20 129/63 98 09/16/19 11:40 36.9 C 74 18 117/68 129/63 96 09/16/19 08:09 74 117/68 09/16/19 07:26 36.9 C 77 18 139/74 96 09/16/19 07:15 81 09/16/19 04:00 36.4 C L 77 17 148/80 H 91 (1) Aortic stenosis Cardiac valve disease etiology: nonrheumatic Qualified Code(s): I35.0 - Nonrheumatic aortic (valve) stenosis
== END 2019-09-16 13:30 | disposition home or self-care (01) | DRG 280 ==
LOC: ED 21:38 → 2S 23:39 → SUATTDRO 23:39 → 2S 09-13 00:12

== ENCOUNTER 2020-10-05 00:08 | Inpatient (IN) ==
--- NOTE | 2020-10-05 00:53 | Emergency Department Note ---
Impression & Plan Paranoid delusion ED Provider Note Name: SHYAM PINK Age: 79 Sex: M Arrives Via: Ambulance Informant: Patient, Police ED Provider: Emanuel Mccrary MD Chief Complaint: Mental Health Evaluation Impression: Paranoid Delusions Medical Decision Makin yr old male with what appears to be history of visual hallucinations per chart, arrives with police after making increasingly bizarre statements and feeling he is being watched. Apparently this evening he had a loaded gun he was carrying around in his walker. On exam he appears to admit he is being monit ored and watched. He appears medically clear and CT head, ekg, labs, are all unremarkable. There is no clear evidence of infection nor significant electrolyte abnormality. Medically cleared and signed out to Dr Rosas pending mental health evaluation. Prior Medical Record and Triage/Nursing Notes reviewed by Me Additional history obtained from chart Differentials:Mood disorder, infection, hypoglycemia, electrolyte abnormalities, cardiac sources, intracerebral event, toxicologic, trauma, neurologic, as well as other pathologies. Vital Signs: reviewed and remarkable for no significant abnormalitie Labs:Reviewed and remarkable for no significant abnormalities Imaging:[facility] Radiologist interpretation reviewed by me: CT Head no acute findings EKG:Per My Interpretation: Indication : Sinus with 1st av block 83 bpm and qtc 507 with similar LBBB to EKG 06/20/20. No ischemia nor ectopy appreciated Consults:Mental health case management Plan: Disposition: Signed out to Dr Rosas Condition: Good History of Present Illness:79 yr old male arrives for evaluation of acute psychiatric illness. patient with worsening hallucinations and agitation over the last few days. Associated with increased falls. He notes he hit his head yesterday. he states he is being watched and that he had to load his gun. Per police he has been walking around with a loaded gun in his walker. Apparently worsening agitation has worried family. Patient states he feels well and denies headache, neck pain, back pain, leg swelling, weakness, urinary/bowel changes, chest pain, sob, abdominal pain nor other symptoms. Denies drug nor alcohol u se. Denies anyone harming him. ROS: See above HPI for pertinent positives & negatives. A total of 10 systems reviewed and were otherwise negative. Past Medical History:See Below Past Surgical History:See Below Family History:See Below Social History:See Below Home Medications:See Below Allergies:cefaclor, aspirin Vitals:Blood Pressure: 106/62, Pulse 95, RR 20, T 37.1C, O2 95% on RA Physical Exam: GENERAL: Patient is elderly and mildly agitated appearing and in minimal distress. EYES: No scleral icterus, unremarkable pupils. ENT: Mucous membranes moist, no nasal congestion. NECK: No masses appreciated, nomeningismus, trachea is midline. RESPIRATORY: No dyspnea. Clear to auscultation and equal bilaterally. No wheeze, no rhonchi. CARDIOVASCULAR: Regular rate and rhythm.No murmurs, rubs, gallops appreciated. GASTROINTESTINAL: Abdomen soft, non-tender, no peritonitis.Bowel sounds positive.No masses appreciated. BACK: No midline tenderness, no CVA tenderness EXTREMITIES: Normal motion all extremities, no cyanosis, no edema. NEUROLOGIC: Alert and oriented, no acute motor or sensory deficits, no focal weakness, cranial nerves grossly intact. SKIN: No rash, no jaundice, no diaphoresis. PSYCH: Seems a bit distant and agitated though follows commands and answer questions, periodically looking in corners of room. GCS: 15 ED Course: Times/Reassessments: multiple, sleeping, no distress Emanuel Mccrary MD Past Med/Surg History Medical History (Updated 10/05/20 @ 06:33 by Emanuel Mccrary MD) Anxiety BPH (benign prostatic hyperplasia) CAD (coronary artery disease) cath 09/15/19 demonstrated 100% occlusion D1 with collaterals, otherwise multivessel disease without severe stenosis COPD (chronic obstructive pulmonary disease) Depression GERD (gastroesophageal reflux disease) controlled Heart attack History of GI bleed + gastric ulcer [place] (hard of [place]) Hyperlipidemia Insomnia Irregular heartbeat Non-ST elevation [place] (NSTEMI) Obesity Osteoarthritis Peripheral vascular disease Poor historian Restless leg Sciatica Seasonal allergies Sleep apnea non compliant w/ cpap Smoking Spinal stenosis Stomach ulcer Valvular heart disease mild aortic stenosis per 09/2018 cardiac cath Surgical History (Updated 06/20/20 @ 00:18 by Nando Ann MD) History of cardiac cath 09/2018 - [facility] - CP - NO STENTS 2010 - [facility] - NO STENTS 2007 - BALLOON ANGIOPLASTY LAD PER MEDICAL RECORD 2000 - [facility] - NO STENTS History of cataract surgery History of cholecystectomy History of colonoscopy History of esophagogastroduodenoscopy (EGD) History of right knee surgery x 2 History of tonsillectomy and adenoidectomy Status post total right knee replacement Family History Mother Heart disease Leukemia Father Lung cancer Brother Cancer Other Allergies Hypertension Denies family history of No family history of adverse response to anesthesia Stroke Social History Smoking Status: Current every day smoker Cigarettes Per Day: 20; Second Hand Exposure: Yes; Hx Alcohol Use: No Hx Substance Use: No Preferred Language: Kinyarwanda Communication Ability: Effective Lead Shop Operator Required: No Beliefs That Will Affect Care: None marital status: / Current Living Situation: Alone Current Living Situation Comment: Lives in apartment Feels Safe at Home: Yes Assistive Devices: Glasses and Walker Allergies Allergies Allergy/AdvReac Type Severity Reaction Status Date / Time cefaclor Allergy Intermediate swelling Verified 10/05/20 01:44 aspirin Allergy Mild bleeding Verified 10/05/20 01:44 ulcer (tolerates 81mg) Home Meds Home Medications Medication Instructions Recorded Confirmed atorvastatin [Lipitor] 80 mg PO HS 05/01/19 10/05/20 finasteride [Proscar] 5 mg PO QAM 05/01/19 10/05/20 fluticasone propionate [Flonase 2 spray INTRANASAL DAILY 05/01/19 10/05/20 Allergy Relief] loratadine [Claritin] 10 mg PO DAILY PRN 05/01/19 10/05/20 multivitamin 1 tab PO QAM 05/01/19 10/05/20 nitroglycerin [Nitrostat] 0.4 mg SUBLINGUAL UD PRN 05/01/19 10/05/20 omeprazole 20 mg PO BID 05/01/19 10/05/20 ropinirole 0.5 mg PO HS 05/01/19 10/05/20 tamsulosin [Flomax] 0.4 mg PO HS 05/01/19 10/05/20 trazodone 50 mg PO HS 05/01/19 10/05/20 hydrocortisone [Proctosol HC] 1 applic [place] QPM PRN 05/27/19 10/05/20 oxycodone-acetaminophen [Percocet] 1 tab PO Q6H PRN 06/02/19 10/05/20 acetaminophen [Tylenol Extra 1,000 mg PO Q8 PRN 09/12/19 10/05/20 Strength] aspirin [Ecotrin Low Strength] 162 mg PO QAM 09/12/19 10/05/20 metoprolol succinate [Toprol XL] 25 mg PO QAM 09/12/19 10/05/20 Entresto 1 tab PO BID 06/19/20 10/05/20 duloxetine 60 mg PO HS 06/19/20 10/05/20 ipratropium-albuterol 3 ml INHALATION TID 06/19/20 10/05/20 Previous Rx's Medication Instructions Recorded furosemide 40 mg PO QAM #30 tab 09/16/19 isosorbide mononitrate 60 mg PO QAM #30 tab 09/16/19 lidocaine 1 patch TOPICAL DAILY #15 ea 06/21/20 magnesium oxide 400 mg PO BID #60 cap 06/21/20 potassium chloride 10 meq PO BID #60 cap 06/21/20 Results & Data (ED) Vital Signs Vital Signs - 24 hr 10/05/20 00:24 10/05/20 07:11 Temperature 37.1 C Temperature Source Oral Pulse Rate 95 H Pulse Rate [Finger] 90 Respiratory Rate 20 20 Respiratory Effort / Characteristics Non-Labored Respiratory Depth Normal Respiratory Pattern Regular Blood Pressure 106/62 Blood Pressure [Left Arm] 129/80 Blood Pressure Mean 76 Blood Pressure Mean [Left Arm] 96 Blood Pressure Position Sitting Pulse Oximetry 95 94 Oxygen Delivery Method Room Air Room Air Sepsis Recent Fever Within 48 Hours No Sepsis New/Unexplained Change in Mental Status No Sepsis Action Taken by Nursing No Action Required Laboratory Data Result diagrams: 10/05/20 01:23 10/05/20 01:23 Lab Results 10/05/20 10/05/20 10/05/20 Range/Units 01:23 01:23 01:23 WBC 8.25 (4.8-10.8) K/uL RBC 4.08 L (4.7-6.1) M/uL Hgb 12.4 L (14.0-18.0) g/dL Hct 35.0 L (42-52) % MCV 85.8 (80-100) fL MCH 30.4 (25-34) pg MCHC 35.4 (32-36) g/dL RDW Std Deviation 47.0 H (36.4-46.3) fL RDW Coeff of Deborah 14.9 H (11.5-14.5) % Plt Count 224 (130-400) K/uL MPV 9.7 (7.4-10.4) fL Immature Gran % (Auto) 0.2 % Neut % (Auto) 67.4 % Lymph % (Auto) 23.2 % [place] % (Auto) 7.2 % Eos % (Auto) 1.6 % Baso % (Auto) 0.4 % Neut # (Auto) 5.57 (1.4-6.5) K/uL Lymph # (Auto) 1.91 (1.2-3.4) K/uL [place] # (Auto) 0.59 (0.11-0.59) K/uL Eos # (Auto) 0.13 (0-0.5) K/uL Baso # (Auto) 0.03 (0-0.2) K/uL Immature Gran # (Auto) 0.02 (0.00-0.02) K/uL Sodium 130 L (136-145) mmol/L Potassium 3.8 (3.5-5.1) mmol/L Chloride 98 (98-107) mmol/L Carbon Dioxide 23 (21-32) mmol/L Anion Gap 9.0 (3-11) BUN 11 (7-18) mg/dl Creatinine 0.91 (0.6-1.4) mg/dl Est Cr Clr Drug Dosing Not Reportable Est GFR ( Amer) 93.2 Est GFR (Non-Af Amer) 80.4 BUN/Creatinine Ratio 12.5 (10-20) Glucose 103 H (70-99) mg/dl Calcium 6.8 L (8.5-10.1) mg/dl Total Bilirubin 0.4 (0.2-1) mg/dl AST 25 (15-37) U/L ALT 26 (12-78) U/L Alkaline Phosphatase 79 (45-117) U/L Total Protein 7.3 (6.4-8.2) gm/dl Albumin 3.6 (3.4-5.0) gm/dl Globulin 3.7 (2.5-4.0) gm/dl Albumin/Globulin Ratio 1.0 (0.9-2) TSH 0.524 (0.300-4.500) uIu/ml Urine Color Urine Appearance (Clear) Urine pH (4.5-7.5) Ur Specific [place] (1.000-1.030) Urine Protein (Negative) Urine Glucose (UA) (Negative) Urine Ketones (Negative) Urine Blood (Negative) Urine Nitrite (Negative) Urine Bilirubin (Negative) Urine Urobilinogen (Negative) Ur Leukocyte Esterase (Negative) Urine WBC (Auto) (0-5) /hpf Urine RBC (Auto) (0-4) /hpf U Hyaline Cast (Auto) (0-5) /lpf U Epithel Cells (Auto) (0-5) /lpf Urine Bacteria (Auto) (Negative) Salicylates 5.1 (2.8-20) mg/dl Urine Opiates Screen (Neg) Ur Methadone, Qual (Neg) Acetaminophen < 2 L (10-30) ug/ml Urine Barbiturates (Neg) Ur Phencyclidine (PCP) (Neg) U Amphetamin/Meth Scrn (Neg) MDMA (Ecstasy) Screen (Neg) U Benzodiazepines Scrn (Neg) Ur Cocaine Metabolite (Neg) U Marijuana (THC) Screen (Neg) Ethyl Alcohol mg/dL (0-3) mg/dl COVID-19 Eval Order SARS-CoV-2 (PCR) (Negative) Influenza Type A (PCR) (Neg) Influenza Type B (PCR) (Neg) RSV (RT-PCR) (Neg) 10/05/20 10/05/20 10/05/20 Range/Units 01:23 02:00 02:00 WBC (4.8-10.8) K/uL RBC (4.7-6.1) M/uL Hgb (14.0-18.0) g/dL Hct (42-52) % MCV (80-100) fL MCH (25-34) pg MCHC (32-36) g/dL RDW Std Deviation (36.4-46.3) fL RDW Coeff of Deborah (11.5-14.5) % Plt Count (130-400) K/uL MPV (7.4-10.4) fL Immature Gran % (Auto) % Neut % (Auto) % Lymph % (Auto) % [place] % (Auto) % Eos % (Auto) % Baso % (Auto) % Neut # (Auto) (1.4-6.5) K/uL Lymph # (Auto) (1.2-3.4) K/uL [place] # (Auto) (0.11-0.59) K/uL Eos # (Auto) (0-0.5) K/uL Baso # (Auto) (0-0.2) K/uL Immature Gran # (Auto) (0.00-0.02) K/uL Sodium (136-145) mmol/L Potassium (3.5-5.1) mmol/L Chloride (98-107) mmol/L Carbon Dioxide (21-32) mmol/L Anion Gap (3-11) BUN (7-18) mg/dl Creatinine (0.6-1.4) mg/dl Est Cr Clr Drug Dosing Est GFR ( Amer) Est GFR (Non-Af Amer) BUN/Creatinine Ratio (10-20) Glucose (70-99) mg/dl Calcium (8.5-10.1) mg/dl Total Bilirubin (0.2-1) mg/dl AST (15-37) U/L ALT (12-78) U/L Alkaline Phosphatase (45-117) U/L Total Protein (6.4-8.2) gm/dl Albumin (3.4-5.0) gm/dl Globulin (2.5-4.0) gm/dl Albumin/Globulin Ratio (0.9-2) TSH (0.300-4.500) uIu/ml Urine Color Yellow Urine Appearance Clear (Clear) Urine pH 6.5 (4.5-7.5) Ur Specific [place] 1.010 (1.000-1.030) Urine Protein Trace H (Negative) Urine Glucose (UA) Negative (Negative) Urine Ketones Negative (Negative) Urine Blood Negative (Negative) Urine Nitrite Negative (Negative) Urine Bilirubin Negative (Negative) Urine Urobilinogen Negative (Negative) Ur Leukocyte Esterase Negative (Negative) Urine WBC (Auto) 1-5 (0-5) /hpf Urine RBC (Auto) 5-10 H (0-4) /hpf U Hyaline Cast (Auto) 0 (0-5) /lpf U Epithel Cells (Auto) 10-20 H (0-5) /lpf Urine Bacteria (Auto) Negative (Negative) Salicylates (2.8-20) mg/dl Urine Opiates Screen Neg (Neg) Ur Methadone, Qual Neg (Neg) Acetaminophen (10-30) ug/ml Urine Barbiturates Neg (Neg) Ur Phencyclidine (PCP) Neg (Neg) U Amphetamin/Meth Scrn Neg (Neg) MDMA (Ecstasy) Screen Neg (Neg) U Benzodiazepines Scrn Neg (Neg) Ur Cocaine Metabolite Neg (Neg) U Marijuana (THC) Screen Neg (Neg) Ethyl Alcohol mg/dL < 3.0 (0-3) mg/dl COVID-19 Eval Order SARS-CoV-2 (PCR) (Negative) Influenza Type A (PCR) (Neg) Influenza Type B (PCR) (Neg) RSV (RT-PCR) (Neg) 10/05/20 10/05/20 Range/Units Unknown Unknown WBC (4.8-10.8) K/uL RBC (4.7-6.1) M/uL Hgb (14.0-18.0) g/dL Hct (42-52) % MCV (80-100) fL MCH (25-34) pg MCHC (32-36) g/dL RDW Std Deviation (36.4-46.3) fL RDW Coeff of Deborah (11.5-14.5) % Plt Count (130-400) K/uL MPV (7.4-10.4) fL Immature Gran % (Auto) % Neut % (Auto) % Lymph % (Auto) % [place] % (Auto) % Eos % (Auto) % Baso % (Auto) % Neut # (Auto) (1.4-6.5) K/uL Lymph # (Auto) (1.2-3.4) K/uL [place] # (Auto) (0.11-0.59) K/uL Eos # (Auto) (0-0.5) K/uL Baso # (Auto) (0-0.2) K/uL Immature Gran # (Auto) (0.00-0.02) K/uL Sodium (136-145) mmol/L Potassium (3.5-5.1) mmol/L Chloride (98-107) mmol/L Carbon Dioxide (21-32) mmol/L Anion Gap (3-11) BUN (7-18) mg/dl Creatinine (0.6-1.4) mg/dl Est Cr Clr Drug Dosing Est GFR ( Amer) Est GFR (Non-Af Amer) BUN/Creatinine Ratio (10-20) Glucose (70-99) mg/dl Calcium (8.5-10.1) mg/dl Total Bilirubin (0.2-1) mg/dl AST (15-37) U/L ALT (12-78) U/L Alkaline Phosphatase (45-117) U/L Total Protein (6.4-8.2) gm/dl Albumin (3.4-5.0) gm/dl Globulin (2.5-4.0) gm/dl Albumin/Globulin Ratio (0.9-2) TSH (0.300-4.500) uIu/ml Urine Color Urine Appearance (Clear) Urine pH (4.5-7.5) Ur Specific [place] (1.000-1.030) Urine Protein (Negative) Urine Glucose (UA) (Negative) Urine Ketones (Negative) Urine Blood (Negative) Urine Nitrite (Negative) Urine Bilirubin (Negative) Urine Urobilinogen (Negative) Ur Leukocyte Esterase (Negative) Urine WBC (Auto) (0-5) /hpf Urine RBC (Auto) (0-4) /hpf U Hyaline Cast (Auto) (0-5) /lpf U Epithel Cells (Auto) (0-5) /lpf Urine Bacteria (Auto) (Negative) Salicylates (2.8-20) mg/dl Urine Opiates Screen (Neg) Ur Methadone, Qual (Neg) Acetaminophen (10-30) ug/ml Urine Barbiturates (Neg) Ur Phencyclidine (PCP) (Neg) U Amphetamin/Meth Scrn (Neg) MDMA (Ecstasy) Screen (Neg) U Benzodiazepines Scrn (Neg) Ur Cocaine Metabolite (Neg) U Marijuana (THC) Screen (Neg) Ethyl Alcohol mg/dL (0-3) mg/dl COVID-19 Eval Order CovFluRsv at [facility] SARS-CoV-2 (PCR) NEGATIVE (Negative) Influenza Type A (PCR) Negative (Neg) Influenza Type B (PCR) Negative (Neg) RSV (RT-PCR) Negative (Neg) Imaging Data Radiologist's Impression: Head CT 10/05/20 00:50 CT OF THE HEAD WITHOUT CONTRAST CLINICAL HISTORY: falls, psychosis COMPARISON STUDY: Head CT June 12, 2019. CT DOSE: 829.26 mGy.cm TECHNIQUE: Helical axial images of the head were obtained without IV contrast. Automated exposure control was utilized for the study. A dose lowering technique was utilized adhering to the principles of ALARA. FINDINGS: No acute intracranial hemorrhage, midline shift or mass effect is present. White matter hypodensities suggest small vessel disease. The ventricular system is unremarkable. The basal cisterns are patent. No extra- axial collections are present. There are no findings to suggest acute dural sinus thrombosis or acute territorial infarct. No significant calvarial abnormalities are present. There is mild ethmoid sinus mucosal thickening. IMPRESSION: No acute intracranial findings. ACT 112: Negative or not required by law. Electronically signed by: Lionel Sprague M.D. 10/05/2020 6:51 AM Discharge Plan Visit Data Chief Complaint: Mental Health Evaluation Stated Complaint: MENTAL HEALTH ED Provider: Emanuel Mccrary Discharge Problem: Paranoid delusion Forms Stand Alone Forms: [facility], Suicide Prevention Resources Prescriptions Prescriptions: No Action multivitamin Tablet 1 tab PO QAM RF: 0 atorvastatin [Lipitor] 80 mg Tablet 80 mg PO HS RF: 0 tamsulosin [Flomax] 0.4 mg Capsule 0.4 mg PO HS RF: 0 trazodone 100 mg Tablet 50 mg PO HS RF: 0 ropinirole 0.5 mg Tablet 0.5 mg PO HS RF: 0 nitroglycerin [Nitrostat] 0.4 mg Tablet, Sublingual 0.4 mg sublingual UD PRN (Reason: Chest Pain) RF: 0 fluticasone propionate [Flonase Allergy Relief] 50 mcg/actuation [place],S uspension 2 spray INTRANASAL DAILY RF: 0 finasteride [Proscar] 5 mg Tablet 5 mg PO QAM RF: 0 loratadine [Claritin] 10 mg Tablet 10 mg PO DAILY PRN (Reason: Allergy Symptoms) RF: 0 omeprazole 20 mg Tablet,Delayed Release (Dr/Ec) 20 mg PO BID RF: 0 hydrocortisone [Proctosol HC] 2.5 % cream with perineal applicator 1 applic [place] QPM PRN (Reason: Hemorrhoids) RF: 0 oxycodone-acetaminophen [Percocet] 5-325 mg tablet 1 tab PO Q6H PRN (Reason: Pain) RF: 0 ipratropium-albuterol 0.5 mg-3 mg(2.5 mg base)/3 mL solution for nebulization 3 ml INHALATION TID RF: 0 duloxetine 60 mg capsule,delayed release(DR/EC) 60 mg PO HS RF: 0 Entresto 24-26 mg Tablet 1 tab PO BID RF: 0 lidocaine 5 % adhesive patch,medicated 1 patch topical DAILY Qty: 15 RF: 0 potassium chloride 10 mEq capsule, extended release 10 meq PO BID Qty: 60 RF: 5 magnesium oxide 400 mg magnesium capsule 400 mg PO BID Qty: 60 RF: 5 aspirin [Ecotrin Low Strength] 81 mg tablet,delayed release (DR/EC) 162 mg PO QAM RF: 0 metoprolol succinate [Toprol XL] 25 mg tablet extended release 24 hr 25 mg PO QAM RF: 0 acetaminophen [Tylenol Extra Strength] 500 mg tablet 1,000 mg PO Q8 PRN (Reason: Pain) RF: 0 furosemide 40 mg Tablet 40 mg PO QAM Qty: 30 RF: 5 isosorbide mononitrate 60 mg Tablet Extended Release 24 Hr 60 mg PO QAM Qty: 30 RF: 5
[2020-10-05 01:43] LABS: Basophils # (auto) 0.03 K/uL (0-0.2); Basophils % (auto) 0.4 %; Eosinophils # (auto) 0.13 K/uL (0-0.5); Eosinophils % (auto) 1.6 %; Hemoglobin 12.4 g/dL (14.0-18.0); Immature Granulocytes # (auto) 0.02 K/uL (0.00-0.02); Immature Granulocytes % (auto) 0.2 %; Lymphocytes # (auto) 1.91 K/uL (1.2-3.4); Lymphocytes % (auto) 23.2 %; Mean Corpuscular Hemoglobin 30.4 pg (25-34); Mean Corpuscular Hgb Conc 35.4 g/dL (32-36); Mean Corpuscular Volume 85.8 fL (80-100); Mean Platelet Volume 9.7 fL (7.4-10.4); Monocytes # (auto) 0.59 K/uL (0.11-0.59); Monocytes % (auto) 7.2 %; Neutrophils # (auto) 5.57 K/uL (1.4-6.5); Neutrophils % (auto) 67.4 %; Platelet Count 224 K/uL (130-400); RDW Coefficient of Variation 14.9 % (11.5-14.5); Red Blood Count 4.08 M/uL (4.7-6.1); White Blood Count 8.25 K/uL (4.8-10.8)
[2020-10-05 02:08] LABS: Acetaminophen < 2 ug/ml (10-30); Salicylate 5.1 mg/dl (2.8-20)
[2020-10-05 02:09] LABS: Alanine Aminotransferase 26 U/L (12-78); Albumin Level 3.6 gm/dl (3.4-5.0); Aspartate Aminotransferase 25 U/L (15-37); BUN Creatinine Ratio 12.5 (10-20); Blood Urea Nitrogen 11 mg/dl (7-18); Calcium 6.8 mg/dl (8.5-10.1); Carbon Dioxide 23 mmol/L (21-32); Chloride 98 mmol/L (98-107); Est GFR (African American) 93.2; Est GFR (Non-African American) 80.4; Glucose 103 mg/dl (70-99); Potassium 3.8 mmol/L (3.5-5.1); Sodium 130 mmol/L (136-145)
[2020-10-05 02:19] LABS: Alkaline Phosphatase 79 U/L (45-117); Bilirubin,Total 0.4 mg/dl (0.2-1); Globulin 3.7 gm/dl (2.5-4.0); Thyroid Stimulating Hormone 0.524 uIu/ml (0.300-4.500); Total Protein 7.3 gm/dl (6.4-8.2)
[2020-10-05 02:28] LABS: Appearance Urine Clear (Clear); Bacteria Urine Automated Negative (Negative); Bilirubin Urine Negative (Negative); Blood Urine Negative (Negative); Cast Urine Automated 0 /lpf (0-5); Color Urine Yellow; Glucose Urine UA Negative (Negative); Ketones Urine Negative (Negative); Leukocyte Esterase Urine Negative (Negative); Nitrite Urine Negative (Negative); Protein Urine Trace (Negative); Urobilinogen Urine Negative (Negative); pH Urine 6.5 (4.5-7.5)
[2020-10-05 02:40] LABS: Influenza A virus by PCR Negative (Neg); Influenza B virus by PCR Negative (Neg); RSV by PCR Negative (Neg); SARS CoV2 RNA(COVID-19) InHosp NEGATIVE (Negative)
[2020-10-05 02:43] LABS: Amphetamines+Metham, Urine Neg (Neg); Barbiturates, Urine Neg (Neg); Benzodiazepine, Urine Neg (Neg); Cocaine, Urine Neg (Neg); MDMA (Ecstacy), Urine Neg (Neg); Methadone, Urine Neg (Neg); Opiate, Urine Neg (Neg); Phencyclidine, Urine Neg (Neg)
--- NOTE | 2020-10-05 06:52 | CT Scan Report ---
CT OF THE HEAD WITHOUT CONTRAST CLINICAL HISTORY: falls, psychosis COMPARISON STUDY: Head CT June 12, 2019. CT DOSE: 829.26 mGy.cm TECHNIQUE: Helical axial images of the head were obtained without IV contrast. Automated exposure con trol was utilized for the study. A dose lowering technique was utilized adhering to the principles o f ALARA. FINDINGS: No acute intracranial hemorrhage, midline shift or mass effect is present. White matter hyp odensities suggest small vessel disease. The ventricular system is unremarkable. The basal cisterns a re patent. No extra-axial collections are present. There are no findings to suggest acute dural sinus thrombosis or acute territorial infarct. No significant calvarial abnormalities are present. There i s mild ethmoid sinus mucosal thickening. IMPRESSION: No acute intracranial findings. ACT 112: Negative or not required by law. Electronically signed by: Lionel Sprague M.D. 10/05/2020 6:51 AM
[2020-10-05] MEDS ORDERED: oxyCODONE/ACETAMINOPHEN 5mg/325mg TAB PO PRN (07:32)
[2020-10-05] MEDS ORDERED: LORATADINE 10 MG TAB PO PRN (07:32)
[2020-10-05] MEDS ORDERED: ACETAMINOPHEN HOME PACK 500 MG TABLET PO PRN (07:32)
--- NOTE | 2020-10-05 08:28 | Emergency Department Note ---
ED Visit Note I assumed care at the change of shift. The patient had presented paranoid and delusional. Laboratory work returned showing a somewhat low sodium. A magnesium was added onto the laboratory testing and this returned with a critically low value. The patient was ordered for IV saline, IV magnesium. Given the electrolyte abnormalities, the patient will require a medical hospitalization with a psychiatric consult. I did speak with case management, the on-call hospitalist has been consulted. Diagnosis: Hyponatremia, hypomagnesia, confusion, paranoia .
[2020-10-05] MEDS ORDERED: FUROSEMIDE 40 MG TAB PO SCH (09:00)
[2020-10-05] MEDS: ASPIRIN 81 MG ECTAB PO SCH (09:38)
[2020-10-05] MEDS: SACUBITRIL-VALSARTAN 24-26 MG TAB PO SCH ×2 (09:39→20:02)
[2020-10-05] MEDS: ISOSORBIDE MONO EXTENDED REL 60 MG TABCR PO SCH (09:40)
[2020-10-05] MEDS: POTASSIUM CHLORIDE 10 MEQ TABCR PO SCH ×2 (09:40→20:02)
[2020-10-05] MEDS: FINASTERIDE 5 MG TAB PO SCH (09:41)
[2020-10-05] MEDS: MULTIVITAMIN TAB PO SCH (09:41)
[2020-10-05] MEDS: METOPROLOL SUCC 25MG EXT REL TAB PO SCH (09:43)
[2020-10-05 10:16] LABS: Magnesium 0.9 mg/dl (1.8-2.4); Phosphorus 3.2 mg/dl (2.5-4.9)
[2020-10-05] MEDS ORDERED: SODIUM CHLORIDE 0.9% 1000ML 500 ML IV ONE (10:22)
[2020-10-05] MEDS: ALBUT/IPRATROP 3MG/0.5MG NEB 3 ML VIAL INH SCH ×3 (10:33→19:23)
[2020-10-05] MEDS ORDERED: CALCIUM GLUCONATE 10% 10 ML VIAL IV STA (10:41)
[2020-10-05] MEDS: MAGNESIUM SULFATE / D5W 1 GM/100 ML BAG IV SCH ×2 (10:45→12:45)
[2020-10-05] MEDS ORDERED: CALCIUM GLUCONATE 1000 MG/60 ML NSS IV ONE (11:06)
[2020-10-05] MEDS ORDERED: POTASSIUM CHLORIDE CRTAB 20 MEQ TABCR PO STA ×2 (11:29→13:45)
[2020-10-05] MEDS ORDERED: CALCIUM GLUCONATE 10% 1,000 MG in SODIUM CHLORIDE 0.9% 50 ML IV ONE ×2 (11:30→16:05)
--- NOTE | 2020-10-05 11:43 | History & Physical Report ---
Date of Service October 05, 2020 Assessment & Plan (1) Visual hallucination: (2) Paranoid delusion: This is a 79-year-old male who has significant past medical history of chronic HFrEF, CAD, HTN, HLD, moderate aortic stenosis, T2DM, COPD, long-term tobacco abuse, RLS, LS as with neurogenic claudication, LOLA not on CPAP, depression with anxiety, GERD who presents to ED via 302 petition by police secondary to visual hallucinations x1 day. Patient is alert and oriented x3 but with strong visual hallucinations that occurred yesterday while at home. Patient felt he saw multiple people in his house, "spraying webs," and also saw a "skinny, unsure of gender, person dressed in blue jeans and a red shirt," in his room. He had 2 loaded guns at bedside prior to going to bed. He denied any suicidal or homicidal ideations but was very frightened of the unknown individuals in house; therefore he called police. Police were unable to find anybody in the home. He was brought to ED on 302 petition. Initially felt to be medically stable but upon further lab evaluation was found to have severe electrolyte derangements and therefore medical admission was warranted. No prior history of psychiatric illness. Does have diagnosis depression with anxiety on epic. Admit to med telemetry 1:1 prn consult psych correct electrolyte abnormalities, ? playing a role although mental status is intact check vit b12, rpr ct head negative hold narcotics, pt denies elicit drug use, drug tox screen negative no s/sx of infection consider neuro eval if sx persist Diarrhea pt reports diarrhea x 2 weeks, no other abd sx or signs of infection check stool culture, stool for cdiff likely culprit of hypomag (3) Hypomagnesemia: mag, 0.9 received 2g IV mag sulfate in ED repeat @ 1500, replace as needed (4) Hypocalcemia: Calcium 6.8, may be in setting of low mag Obtain vitamin D and PTH levels Received 1 g calcium gluconate in ED Repeat BMP this afternoon (5) Hyponatremia: Sodium 130 Hold Lasix, although he did receive dose today Serum osm, urine sodium and urine osm Received 1 L of IVF in ED Repeat BMP at 1500 Denies any excessive thirst or drinking (6) CAD (coronary artery disease): (7) CHF (congestive heart failure): (8) Aortic stenosis: Chronic HFrEF Last echo 05/2020-EF 40 to 45%, left ventricular hypokinesis, moderate aortic valve stenosis, mild AR Continue ASA, statin, Imdur, Entresto, metoprolol Hold Lasix for now in setting of hyponatremia Daily weights, strict I's and O's Heart healthy diet (9) COPD (chronic obstructive pulmonary disease): No acute exacerbation Continue nebs (10) Smoking: Tobacco abuse will nicotine supplementation as patient has prior history of hallucinations with Chantix (11) BPH (benign prostatic hyperplasia): Continue finasteride and Flomax (12) DVT prophylaxis: Lovenox Dispo: Admit to med telemetry, consult psychiatry, consult case management given 302 petition and possible placement needed Full code PCP: Junaid Gibbons Patient was seen and examined in collaboration with Dr. Cesar, please see addendum History of Present Illness Chief Complaint: Visual hallucinations x1 day. Primary Care Provider: Salas Gibbons, DO This is a 79-year-old male who has significant past medical history of chronic HFrEF, CAD, HTN, HLD, moderate aortic stenosis, T2DM, COPD, long-term tobacco abuse, RLS, LS as with neurogenic claudication, LOLA not on CPAP, depression with anxiety, GERD who presents to ED via 302 petition by police secondary to visual hallucinations x1 day. Patient lives on his own but recently granddaughter has been staying with him and checks on him frequently. He states he was in his normal state of health until yesterday when he noticed people in his house, "spraying webs." He thought people were associated with granddaughter but is really unsure who they were. He told his granddaughter what he was seeing. Later that night when he was going to bed he went to his room, shot and locked his door. He then got to guns out of bedside drawer, loaded 1 and tried to go to sleep. When he tried to go to sleep he noticed somebody come in his room who was, "very skinny, in jeans and a red short, and then they disappeared." Patient was extremely frightened by somebody in his room who he did not know and he called 911. When 911 arrived he states the very skinny individual in jeans and a red shirt disappeared, he thinks maybe they went under his TV stand because they were so skinny. His granddaughter was very frightened. Due to visual hallucinations and loaded weapons at bedside police obtain 302 petition and brought patient to ED. Patient continues to smoke 1 pack a day but denies alcohol use. He states 25 years ago he was a heavy alcohol user but quit at the request of his . He denies any illicit drug use including marijuana or cocaine. He does use prescription opiates and states he takes 4 a day. He denies taking extra medications. He admits to being compliant with his medications and he is able to tell me what he is taking. He feels this is all very, "silly and calling the police was a mistake." "What I am seeing is there and nobody leaves me." He denies any recent illness, fever, chills, sweats, lightheadedness, dizziness, chest pain, shortness breath, cough, nausea, vomiting, abdominal pain, melena, hematochezia. He has been having episodes of diarrhea for the past 2 weeks. He admits to 3-4 bowel movements daily. He stopped taking his oral magnesium and this did improve slightly. He also has been taking Imodium with improvement. Per chart patient does have history of depression with anxiety but he denies any perfecto mental illness or psychiatric hospitalizations. He does take Cymbalta but elicits this is secondary to chronic back pain with radiculopathy. He denies any suicidal or homicidal ideations and had no intentions to hurt anyone with his guns. He was afraid secondary to an unknown stranger in his room. In ED patient remained hemodynamically stable. He was alert and oriented and able to answer all questions appropriately. He did have significant electrolyte abnormalities including magnesium 1.9, calcium 6.8, sodium 130. Lab work otherwise unremarkable and urine drug tox screen negative. CT of head was negative. Allergies Allergy/AdvReac Type Severity Reaction Status Date / Time cefaclor Allergy Intermediate swelling Verified 10/05/20 01:44 aspirin Allergy Mild bleeding Verified 10/05/20 01:44 ulcer (tolerates 81mg) Home Medications Medication Instructions Recorded Confirmed Type atorvastatin [Lipitor] 80 mg PO HS 05/01/19 10/05/20 History finasteride [Proscar] 5 mg PO QAM 05/01/19 10/05/20 History fluticasone propionate [Flonase 2 spray INTRANASAL DAILY 05/01/19 10/05/20 History Allergy Relief] loratadine [Claritin] 10 mg PO DAILY PRN 05/01/19 10/05/20 History multivitamin 1 tab PO QAM 05/01/19 10/05/20 History nitroglycerin [Nitrostat] 0.4 mg SUBLINGUAL UD PRN 05/01/19 10/05/20 History omeprazole 20 mg PO BID 05/01/19 10/05/20 History ropinirole 0.5 mg PO HS 05/01/19 10/05/20 History tamsulosin [Flomax] 0.4 mg PO HS 05/01/19 10/05/20 History trazodone 50 mg PO HS 05/01/19 10/05/20 History hydrocortisone [Proctosol HC] 1 applic PA QPM PRN 05/27/19 10/05/20 History oxycodone-acetaminophen [Percocet] 1 tab PO Q6H PRN 06/02/19 10/05/20 History acetaminophen [Tylenol Extra 1,000 mg PO Q8 PRN 09/12/19 10/05/20 History Strength] aspirin [Ecotrin Low Strength] 162 mg PO QAM 09/12/19 10/05/20 History metoprolol succinate [Toprol XL] 25 mg PO QAM 09/12/19 10/05/20 History furosemide 40 mg PO QAM #30 tab 09/16/19 10/05/20 Rx isosorbide mononitrate 60 mg PO QAM #30 tab 09/16/19 10/05/20 Rx Entresto 1 tab PO BID 06/19/20 10/05/20 History duloxetine 60 mg PO HS 06/19/20 10/05/20 History ipratropium-albuterol 3 ml INHALATION TID 06/19/20 10/05/20 History lidocaine 1 patch TOPICAL DAILY #15 ea 06/21/20 10/05/20 Rx magnesium oxide 400 mg PO BID #60 cap 06/21/20 10/05/20 Rx potassium chloride 10 meq PO BID #60 cap 06/21/20 10/05/20 Rx duloxetine 30 mg PO HS 10/05/20 10/05/20 History Past Med/Surg History Medical History Anxiety BPH (benign prostatic hyperplasia) CAD (coronary artery disease) cath 09/15/19 demonstrated 100% occlusion D1 with collaterals, otherwise multivessel disease without severe stenosis COPD (chronic obstructive pulmonary disease) Depression GERD (gastroesophageal reflux disease) controlled Heart attack History of GI bleed + gastric ulcer [place] (hard of hearing) Hyperlipidemia Insomnia Irregular heartbeat Non-ST elevation MA (NSTEMI) Obesity Osteoarthritis Peripheral vascular disease Poor historian Restless leg Sciatica Seasonal allergies Sleep apnea non compliant w/ cpap Smoking Spinal stenosis Stomach ulcer Valvular heart disease mild aortic stenosis per 09/2018 cardiac cath Surgical History History of cardiac cath 09/2018 - [facility] - CP - NO STENTS 2010 - [facility] - NO STENTS 2007 - B[facility]OON ANGIOPLASTY LAD PER MEDICAL RECORD 2000 - [facility] - NO STENTS History of cataract surgery History of cholecystectomy History of colonoscopy History of esophagogastroduodenoscopy (EGD) History of right knee surgery x 2 History of tonsillectomy and adenoidectomy Status post total right knee replacement Family History Mother Heart disease Leukemia Father Lung cancer Brother Cancer Other Allergies Hypertension Denies family history of No family history of adverse response to anesthesia Stroke Social History Smoking Status: Current every day smoker Cigarettes Per Day: 20; Second Hand Exposure: Yes; Tobacco Cessation Education Requested by Patient: Yes Hx Alcohol Use: No Hx Substance Use: No Preferred Language: Stateless Communication Ability: Unable Director Of Orthopedics Required: No Beliefs That Will Affect Care: None (raised Christianity ) marital status: / Current Living Situation: Alone Current Living Situation Comment: Lives in apartment Other Information That Helps Us Care for You: No Feels Safe at Home: Yes Safety Concerns: Feels Safe At This Time Assistive Devices: Cane Review of Systems Review of Systems: All systems reviewed & are unremarkable except as noted in HPI & below Physical Exam Physical Exam: Constitutional: Elderly, male, sitting up in wheelchair, WD/WN, vitals as above, NAD, sitting up in bed, pleasant, conversing easily but slightly difficult to understand secondary edentulous Head: Normocephalic, Atraumatic Eyes: PERRL, conjunctivae normal, anicteric sclerae ENMT: external ear and nose normal, oropharynx normal Neck: trachea midline, no thyromegaly normal visual inspection Respiratory: normal respiratory effort, lungs clear to auscultation, no wheeze, rales, rhonchi. Normal insp/exp effort, no accessory muscle use Cardiovascular: RRR, 2/6 harsh RON noted RUSB, bilateral nonpitting ankle and pedal edema, no erythema Vessels: no JVD or carotid bruit Chest: normal inspection of chest Abdomen: normal bowel sounds, soft, nontender, no hepatosplenomegaly Musculoskeletal: no cyanosis or clubbing, extremities motor strength 5/5 Skin: no rashes, warm and dry normal turgor Neurologic: PERRL, EOMI, accommodation nl, no face palsy, no dysarthria CN's II-XI intact bilaterally and moves all extremities Psychiatric: A+Ox3, euthymic affect Lymphatic: no cervical or axillary lymphadenopathy : deferred Results & Data Results & Data ([facility]) Vital Signs (Past 12 Hours) Vital Signs Temp Pulse Pulse Resp BP BP Pulse Ox 10/05/20 10:42 78 16 97 10/05/20 07:11 90 20 129/80 94 10/05/20 00:24 37.1 C 95 H 20 106/[address] 10/05/20 00:50 CT OF THE HEAD WITHOUT CONTRAST CLINICAL HISTORY: falls, psychosis COMPARISON STUDY: Head CT June 12, 2019. CT DOSE: 829.26 mGy.cm TECHNIQUE: Helical axial images of the head were obtained without IV contrast. Automated exposure control was utilized for the study. A dose lowering technique was utilized adhering to the principles of ALARA. FINDINGS: No acute intracranial hemorrhage, midline shift or mass effect is present. White matter hypodensities suggest small vessel disease. The ventricular system is unremarkable. The basal cisterns are patent. No extra- axial collections are present. There are no findings to suggest acute dural sinus thrombosis or acute territorial infarct. No significant calvarial abnormalities are present. There is mild ethmoid sinus mucosal thickening. IMPRESSION: No acute intracranial findings. ACT 112: Negative or not required by law. Electronically signed by: Lionel Sprague M.D. 10/05/2020 6:51 AM Medications Administered Home Medications Medication Instructions Recorded Confirmed atorvastatin [Lipitor] 80 mg PO HS 05/01/19 10/05/20 finasteride [Proscar] 5 mg PO QAM 05/01/19 10/05/20 fluticasone propionate [Flonase 2 spray INTRANASAL DAILY 05/01/19 10/05/20 Allergy Relief] loratadine [Claritin] 10 mg PO DAILY PRN 05/01/19 10/05/20 multivitamin 1 tab PO QAM 05/01/19 10/05/20 nitroglycerin [Nitrostat] 0.4 mg SUBLINGUAL UD PRN 05/01/19 10/05/20 omeprazole 20 mg PO BID 05/01/19 10/05/20 ropinirole 0.5 mg PO HS 05/01/19 10/05/20 tamsulosin [Flomax] 0.4 mg PO HS 05/01/19 10/05/20 trazodone 50 mg PO HS 05/01/19 10/05/20 hydrocortisone [Proctosol HC] 1 applic PA QPM PRN 05/27/19 10/05/20 oxycodone-acetaminophen [Percocet] 1 tab PO Q6H PRN 06/02/19 10/05/20 acetaminophen [Tylenol Extra 1,000 mg PO Q8 PRN 09/12/19 10/05/20 Strength] aspirin [Ecotrin Low Strength] 162 mg PO QAM 09/12/19 10/05/20 metoprolol succinate [Toprol XL] 25 mg PO QAM 09/12/19 10/05/20 Entresto 1 tab PO BID 06/19/20 10/05/20 duloxetine 60 mg PO HS 06/19/20 10/05/20 ipratropium-albuterol 3 ml INHALATION TID 06/19/20 10/05/20 duloxetine 30 mg PO HS 10/05/20 10/05/20 Previous Rx's Medication Instructions Recorded furosemide 40 mg PO QAM #30 tab 09/16/19 isosorbide mononitrate 60 mg PO QAM #30 tab 09/16/19 lidocaine 1 patch TOPICAL DAILY #15 ea 06/21/20 magnesium oxide 400 mg PO BID #60 cap 06/21/20 potassium chloride 10 meq PO BID #60 cap 06/21/20 Albuterol (Albut/Ipratrop 3mg/0.5mg Neb 3 Ml Vial) 3 ml INH TID [facility] Stop: 11/04/20 08:59 Last Admin: 10/05/20 10:33 Dose: 3 ml Documented by: [id number] Aspirin (Aspirin 81 Mg Ectab) 162 mg PO [facility] Stop: 11/04/20 08:59 Last Admin: 10/05/20 09:38 Dose: 162 mg Documented by: [id number] Finasteride ([facility]aster[facility] 5 Mg Tab) [facility] Stop: 11/04/20 08:59 Last Admin: 10/05/20 09:41 Dose: 5 mg Documented by: [id number] Magnesium Sulfate/Dextrose (Magnesium Sulfate / D5w) 1 gm in 100 mls @ 100 mls/hr IV Q1H [facility] Stop: 10/05/20 12:21 Last Admin: 10/05/20 10:45 Dose: 100 mls/hr Documented by: [id number] Calcium Gluconate 1,000 mg/ (Sodium Chloride) 60 mls @ 240 mls/hr IV ONE ONE Stop: 10/05/20 11:44 Last Admin: 10/05/20 11:40 Dose: 240 mls/hr Documented by: [id number] Isosorbide Mononitrate (Isosorbide [place] Extended Rel 60 Mg Tabcr) 60 mg PO [facility] Stop: 11/04/20 08:59 Last Admin: 10/05/20 09:40 Dose: 60 mg Documented by: [id number] Metoprolol Succinate (Metoprolol Succ 25mg Ext Rel Tab) 25 mg PO [facility] Stop: 11/04/20 08:59 Last Admin: 10/05/20 09:43 Dose: 25 mg Documented by: [id number] Multivitamins (Multivitamin Tab) 1 tab PO [facility] Stop: 11/04/20 08:59 Last Admin: 10/05/20 09:41 Dose: 1 tab Documented by: [id number] Non-Formulary Medication (Magnesium Oxide) 400 mg PO BID [facility] Stop: 11/04/20 08:59 Last Admin: 10/05/20 10:45 Dose: Not Given Documented by: [id number] Non-Formulary Medication (Omeprazole) 20 mg PO BID [facility] Stop: 11/04/20 08:59 Last Admin: 10/05/20 10:58 Dose: Not Given Documented by: [id number] Potassium Chloride (Potassium Chloride 10 Meq Tabcr) 10 meq PO BID [facility] Stop: 11/04/20 08:59 Last Admin: 10/05/20 09:40 Dose: 10 meq Documented by: [id number] Sacubitril/Valsartan (Sacubitril-Valsartan 24-26 Mg Tab) 1 tab PO BID [facility] Stop: 11/04/20 08:59 Last Admin: 10/05/20 09:39 Dose: 1 tab Documented by: [id number] Discontinued Medications Calcium Gluconate (Calcium Gluconate 1000 Mg/60 Ml Nss) Confirm Administered Dose 1,000 mg IV .STK-MED ONE Stop: 10/05/20 11:07 Last Admin: 10/05/20 11:16 Dose: Not Given Documented by: [id number] Furosemide (Furosemide 40 Mg Tab) 40 mg PO QAM [facility] Stop: 11/04/20 08:59 Last Admin: 10/05/20 09:40 Dose: 40 mg Documented by: [id number] Sodium Chloride (Nss 1000ml) 500 mls @ 999 mls/hr IV .Q31M ONE Stop: 10/05/20 10:52 Last Admin: 10/05/20 10:58 Dose: 999 mls/hr Documented by: [id number] ECG Rate (beats per minute): 83 Rhythm: normal sinus Findings: + 1st degree AV block and + LBBB COVID-19 Results Results COVID-19 Adm Lab Results: RBC 4.37 M/uL (4.7-6.1) L 10/12/20 WBC 6.00 K/uL (4.8-10.8) 10/12/20 Hgb 13.3 g/dL (14.0-18.0) L 10/12/20 Hct 38.4 % (42-52) L 10/12/20 Plt Count 247 K/uL (130-400) 10/12/20 Neutrophils (%) (Auto) 67.4 % 10/05/20 Lymphocytes (%) (Auto) 23.2 % 10/05/20 Monocytes # (Auto) 0.59 K/uL (0.11-0.59) 10/05/20 Eosinophils # (Auto) 0.13 K/uL (0-0.5) 10/05/20 Immature Granulocyte % (Auto) 0.2 % 10/05/20 Neutrophils # (Auto) 5.57 K/uL (1.4-6.5) 10/05/20 Lymphocytes # (Auto) 1.91 K/uL (1.2-3.4) 10/05/20 Monocytes # (Auto) 0.59 K/uL (0.11-0.59) 10/05/20 Eosinophils # (Auto) 0.13 K/uL (0-0.5) 10/05/20 Basophils # (Auto) 0.03 K/uL (0-0.2) 10/05/20 Immature Granulocyte # (Auto) 0.02 K/uL (0.00-0.02) 10/05/20 Na 131 mmol/L (136-145) L 10/12/20 K 4.3 mmol/L (3.5-5.1) 10/12/20 Cl 99 mmol/L (98-107) 10/12/20 CO2 27 mmol/L (21-32) 10/12/20 Anion Gap 5.0 (3-11) 10/12/20 BUN 18 mg/dl (7-18) 10/12/20 Creatinine 0.89 mg/dl (0.6-1.4) 10/12/20 BUN/Creatinine Ratio 19.6 (10-20) 10/12/20 Glucose Level 100 mg/dl (70-99) H 10/12/20 Ca 9.1 mg/dl (8.5-10.1) 10/12/20 Phosphorus Level 3.4 mg/dl (2.5-4.9) 10/11/20 Total Bilirubin 0.6 mg/dl (0.2-1) 10/08/20 AST/SGOT 48 U/L (15-37) H 10/08/20 ALT/SGPT 33 U/L (12-78) 10/08/20 Alkaline Phosphatase 74 U/L (45-117) 10/08/20 Total Protein 7.2 gm/dl (6.4-8.2) 10/08/20 Albumin 3.1 gm/dl (3.4-5.0) L 10/08/20 Globulin 4.1 gm/dl (2.5-4.0) H 10/08/20 Albumin/Globulin Ratio 0.8 (0.9-2) L 10/08/20 Total CK 1323 U/L (39-308) H 10/07/20 Troponin I 1.520 ng/ml (0-0.045) H* 10/08/20 OV-Hmc-B-Type Natriuretic Pep 3149 pg/ml (0-1800) H 10/10/20 Procalcitonin < 0.05 ng/ml (0-0.5) 10/09/20 PTT 25.0 Seconds (21.0-31.0) 10/07/20 INR 1.1 (0.9-1.1) 10/07/20 COVID-19 PCR NEGATIVE (Negative) 10/05/20 Influenza Virus Type A (PCR) Negative (Neg) 10/05/20 Influenza Virus Type B (PCR) Negative (Neg) 10/05/20 POC pH 7.43 (7.35-7.45) 10/07/20 POC pCO2 40 mmHg (35-46) 10/07/20 POC pO2 114 mmHg (80-95) H 10/07/20 POC HCO3 26 tj/L (19-24) H 10/07/20 POC Total CO2 28 mmol/L (24-31) 10/07/20 POC Base Excess 2.0 tj/L (-9-1.8) H 10/07/20 ABG pH 7.45 (7.35-7.45) 10/06/20 ABG pCO2 33 mmHg (35-46) L 10/06/20 ABG pO2 60 mmHg (80-95) L 10/06/20 ABG HCO3 22 mmol/L (19-24) 10/06/20 ABG O2 Saturation 91.6 % (90-95) 10/06/20 ABG Base Excess -1.1 mEq/L (-9-1.8) 10/06/20 Chest X-Ray 10/10/20 Code Status & VTE Plan Code Status Full code VTE Prophylaxis Plan VTE Prophylaxis will be ordered: Yes Supervising Physician Co-Signing Physician Notes Pt was seen and examined. Agreed with Tana MUSTAFA exam, assessment and plan. 79-year-old male who has significant past medical history of chronic HFrEF, CAD, HTN, HLD, moderate aortic stenosis, T2DM, COPD, long-term tobacco abuse, RLS, LS as with neurogenic claudication, LOLA not on CPAP, depression with anxiety, GERD who presents to ED via 302 petition by police secondary to visual hallucinations. Pt said that last night he noticed there were people in his house spraying webs. He said that he could not tell who they were and informed his granddaughter about it. Later that night he locked himself in his room and loaded his gun and placed it in the drawer. He said that he tried to fall asleep he noticed someone was in his room. He was frightened and called 911. When the survey associate came he explained them what he saw. He said to the survey associate maybe the person went under his TV stand because the person was so skinny. Due to visual hallucinations and loaded weapons at bedside police obtain 302 petition and brought patient to ED for eval. denies any illicit drug use including marijuana or cocaine, alcohol. He takes prescription opiates and He denies taking extra medications. In the ED lab showed calcium 6.8 and Na 130. urine drug tox screen negative. CT of head was negative. Pt is back to his baseline. Psych consult. Will replace calcium. Will check PTH, Mag. EKG read LBBB, but when i compared his EKG with his previous one there were no significant changes. I spoke to cardio about the EKG and cardiology reviewed it (No official consult was placed), no significant changed. Pt is asymptomatic. Will get a resting echo. Will monitor electrolytes. Continue 1 to 1 observation. Continue monitor closely. MD Arsenio (1) CHF (congestive heart failure) Heart failure chronicity: acute on chronic Heart failure type: combined systolic and diastolic Qualified Code(s): I50.43 - Acute on chronic combined systolic (congestive) and diastolic (congestive) heart failure (2) Aortic stenosis Cardiac valve disease etiology: nonrheumatic Qualified Code(s): I35.0 - Nonrheumatic aortic (valve) stenosis
[2020-10-05] MEDS ORDERED: ONDANSETRON INJ 2 MG/ML 2 ML VIAL IV PRN (12:27)
[2020-10-05] MEDS ORDERED: ACETAMINOPHEN 325 MG TAB PO PRN (12:27)
[2020-10-05] MEDS ORDERED: MAGNESIUM HYDROXIDE SUSP 30 ML UDC PO PRN (12:27)
[2020-10-05] MEDS ORDERED: ALUMINUM/MAGNESIUM SUSP 30 ML UDC PO PRN (12:27)
[2020-10-05] MEDS ORDERED: POLYETHYLENE (MIRALAX) 17 GM PACK PO PRN (12:27)
[2020-10-05] MEDS ORDERED: MAGNESIUM SULFATE / D5W 1 GM/100 ML BAG IV SCH (12:45)
--- NOTE | 2020-10-05 13:57 | Psychiatric Consultation ---
Date of Consultation October 05, 2020 Impression / Recommendations Impression Dr. Lucero Melendez was directly involved in review and discussion of the patient's case and participated in medical decision making regarding treatment recommendations. RECOMMENDATIONS: 10/05/20 - Psychiatric consultation was requested by our hospitalist team to evaluate the patient due to acute onset of paranoia/delusions and visual hallucinations. Pt is prescribed 90mg of duloxetine daily - which he states was initiated for chronic back pain and has been helpful. - Agree with further work-up to assess for possible organic etiology. Onset of confusion/paranoia/delusions seems to be rather acute, which indicates his symptoms are less likely to be directly related to a primary psychiatric condition. Furthermore, visual hallucinations more likely associated with organic etiology (metabolic encephalopathy/delirium, neurodegenerative diseases, seizures, retinal pathology, drug/alcohol withdrawal). It is highly unlikely that patient is developing a new onset thought disorder at his age. - Stretching the differential, there is also possibility that these are hypnagogic/hypnopompic visual hallucinations, which could indicate possible narcolepsy or other sleep disorder. It is being mentioned by the patient that he has been falling out of bed intermittently due to excessive movements while sleeping/dreaming - last known fall was 3 weeks ago. He denies history of sleep studies. This history also begs the question of possible head injury leading to acute mental status change. - It will be helpful to get collateral information from the patient's granddaughter. He did sign an TESSA for communication, but requested we use "discretion", allowing us to gather information but requesting only "general stuff" be revealed to family. This will help to further determine recommendations regarding discharge planning. - Recommend contacting police to confirm that firearms have been secured, given the acute safety concerns for possible harm to self or others that occurred prior to patient's admission. - Appreciate the opportunity to participate in this interesting case, please reach out to our service with any additional questions or updates. Risk Factors Assessment Do You Have Access To A Gun?: Yes (though reported to have been secured by police) Psych History Identifying Data 79-year-old male admitted medically on 10/05/20 after presenting to the ED with reports of visual hallucinations and paranoia/delusions. Pt was brought to the ED by police, who completed a 302 petitioning statement based on his paranoid behaviors and having unsafe access to guns. Psychiatric consultation was requested to evaluate patient for hallucinations, paranoia. Chief Complaint "Where are you from? Ah...[place] people." History of Present Illness Eugene Hyman is a 79-year-old male admitted medically on 10/05/20 after presenting to the ED with reported paranoia/delusions and visual hallucinations. ED documentation suggests the police had been dispatched to the patient's home by the patient himself, stating that someone was in his living room. Pt had reported seeing an individual in his living room, but could not see their face. He had armed himself with a loaded gun and had a second unloaded gun accessible due to the "intruder" being in his house. The patient was able to give a detailed report of the events he observed, but when police arrived there was no evidence of what patient had described. Due to concern regarding "delusions and hallucinations" as well as patient having access to firearms in this state, police encouraged the patient to present to the ED. 302 petitioning statement completed by police - "Eugene Hyman called 911 saying someone was in his living room, that he was with them but that they can't see him. Boogie had armed himself with a loaded 38 special 5-shot revolver. Boogie was unable to see the intruder's faces to describe them, but said she was wearing a plaid shirt and jeans. When police arrived she disappeared. The intruder was painting/spraying cobwebs that were dissolving while officers were there. Boogie also said the intruder was painting spots on his weinberg. Boogie is partially aware he is seeing things. There was a second unloaded revolver in his walker." Pt was admitted medically after work-up showed electrolyte abnormalities; QTc was 507. Pt was cooperative with psychiatric assessment. While exchanging introductions, the patient states "where are you from? [place]." He was asked what led to his hospitalization and states "Eh...nothing" then elaborated with "I pulled a gun on someone and they got upset." Pt is agreeable with sharing details. He states prior to the event mentioned above, he believed he had seen 3-4 people (his granddaughter included) who had been "looking like they were entertaining or something, didn't think nothing of it." He states that later in the evening he had seen a woman in his home, and though he initially thought his granddaughter let her in, he was concerned about the intruder. He states he had a loaded gun in case he needed to use it "to defend myself." Pt describes her as "a skinny thing, wearing jeans and a red flannel shirt. I couldn't see her face cause she was wearing one of those gas mask things." Pt states that the woman disappeared when the police arrived at his home and he continues to be surprised that they found no evidence of the "break-in." Pt did report a history of visual hallucinations when on Chantix in the past. Pt does indicate that his family has been more concerned about him "misreading things", but he was unable to provide an example. He states his granddaughter does not live with him, but visits "2-3 times a day, she's around. Comes over when she needs something." Pt states he had been and twice and does miss his . Pt admits to episodes of low mood in the past, but states "they were short, a couple days at most." Pt admits that he worries sometimes, but states "it all depends on the situation. You gotta take everything into consideration." He states he had been started on duloxetine for chronic back pain and does find that it has been helpful. He does not have a history of formal psychiatric treatment per his report. Pt admits to history of alcohol abuse, but quit 30 years ago. Denies other substance use and toxicology was negative for other concerning substances. Pt denies acute concerns, and is normalizing the role that the firearms played in his situation. 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 Ya know?" Past Psychiatric History Current Psychiatric Diagnosis: Pt denies Outpatient Services: None; PCP prescribes duloxetine, though patient states this is for chronic back pain. Previous Psych Admissions: Denied Do You Have Access To A Gun?: Yes (though reported to have been secured by police) History of Previous Suicide Attempt: No Past Medication Trials: Per external medication list - Cymbalta - Chantix - reported hallucinations - Zoloft - Trazodone Allergies Allergy/AdvReac Type Severity Reaction Status Date / Time cefaclor Allergy Intermediate swelling Verified 10/05/20 01:44 aspirin Allergy Mild bleeding Verified 10/05/20 01:44 ulcer (tolerates 81mg) Home Medications Medication Instructions Recorded Confirmed Type atorvastatin [Lipitor] 80 mg PO HS 05/01/19 10/05/20 History finasteride [Proscar] 5 mg PO QAM 05/01/19 10/05/20 History fluticasone propionate [Flonase 2 spray INTRANASAL DAILY 05/01/19 10/05/20 History Allergy Relief] loratadine [Claritin] 10 mg PO DAILY PRN 05/01/19 10/05/20 History multivitamin 1 tab PO QAM 05/01/19 10/05/20 History nitroglycerin [Nitrostat] 0.4 mg SUBLINGUAL UD PRN 05/01/19 10/05/20 History omeprazole 20 mg PO BID 05/01/19 10/05/20 History ropinirole 0.5 mg PO HS 05/01/19 10/05/20 History tamsulosin [Flomax] 0.4 mg PO HS 05/01/19 10/05/20 History trazodone 50 mg PO HS 05/01/19 10/05/20 History hydrocortisone [Proctosol HC] 1 applic MN QPM PRN 05/27/19 10/05/20 History oxycodone-acetaminophen [Percocet] 1 tab PO Q6H PRN 06/02/19 10/05/20 History acetaminophen [Tylenol Extra 1,000 mg PO Q8 PRN 09/12/19 10/05/20 History Strength] aspirin [Ecotrin Low Strength] 162 mg PO QAM 09/12/19 10/05/20 History metoprolol succinate [Toprol XL] 25 mg PO QAM 09/12/19 10/05/20 History furosemide 40 mg PO QAM #30 tab 09/16/19 10/05/20 Rx isosorbide mononitrate 60 mg PO QAM #30 tab 09/16/19 10/05/20 Rx Entresto 1 tab PO BID 06/19/20 10/05/20 History duloxetine 60 mg PO HS 06/19/20 10/05/20 History ipratropium-albuterol 3 ml INHALATION TID 06/19/20 10/05/20 History lidocaine 1 patch TOPICAL DAILY #15 ea 06/21/20 10/05/20 Rx magnesium oxide 400 mg PO BID #60 cap 06/21/20 10/05/20 Rx potassium chloride 10 meq PO BID #60 cap 06/21/20 10/05/20 Rx duloxetine 30 mg PO HS 10/05/20 10/05/20 History Family History "My family was all nuts, but my oldest brother had it real bad." Unable to be more specific with family history of psychiatric diagnoses. Substance Abuse History Pt admits to smoking "little cigars" - generally a pack (20) per day. Pt states he has a history of alcohol abuse, but quit cold turkey 30 years ago at his 's request. Pt denies experimentation or abuse of illicit substances in the past. 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[employer]) Marital Status: ( and x2; second passed in 2010) Number Of Children: 1 son; 1 daughter - 1 granddaughter living locally, supportive Beliefs That Will Affect Care: None (raised [place] ) History of Legal Problems: Denied Patient History Medical History Anxiety BPH (benign prostatic hyperplasia) CAD (coronary artery disease) cath 09/15/19 demonstrated 100% occlusion D1 with collaterals, otherwise multivessel disease without severe stenosis COPD (chronic obstructive pulmonary disease) Depression GERD (gastroesophageal reflux disease) controlled Heart attack History of GI bleed + gastric ulcer [place] (hard of hearing) Hyperlipidemia Insomnia Irregular heartbeat Non-ST elevation [place] (NSTEMI) Obesity Osteoarthritis Peripheral vascular disease Poor historian Restless leg Sciatica Seasonal allergies Sleep apnea non compliant w/ cpap Smoking Spinal stenosis Stomach ulcer Valvular heart disease mild aortic stenosis per 09/2018 cardiac cath Surgical History History of cardiac cath 09/2018 - [facility] - - NO STENTS 2010 - [facility] - NO STENTS 2008 - BALLOON ANGIOPLASTY LAD PER MEDICAL RECORD 2000 - [facility] - NO STENTS History of cataract surgery History of cholecystectomy History of colonoscopy History of esophagogastroduodenoscopy (EGD) History of right knee surgery x 2 History of tonsillectomy and adenoidectomy Status post total right knee replacement Family History Mother Heart disease Leukemia Father Lung cancer Brother Cancer Other Allergies Hypertension Denies family history of No family history of adverse response to anesthesia Stroke Social History Smoking Status: Current every day smoker Cigarettes Per Day: 20; Second Hand Exposure: Yes; Tobacco Cessation Education Requested by Patient: Yes Hx Alcohol Use: No Hx Substance Use: No Preferred Language: Lao Communication Ability: 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 Pt is casually dressed, appropriate for clinical setting (wearing hospital gown and scrub pants). He has short strawberry blonde/white hair, some stubble. Overall level of hygiene and grooming appear adequate. Eye Contact: good eye contact Speech: + loud speech (hyperverbal, raspy voice) speech is dysarthric and is difficult to understand at times; heavy [place] accent Mood: no depressed mood Thought Process: + tangential thought process Thought Content: + paranoid and + delusions; no hopelessness and no worthlessness delusions/paranoia seem to be isolated to the incident leading to his admission, as he does believe this event truly occurred. He is not continuing to express new delusions/paranoia related to hospitalization. Suicidal Thoughts: denies suicidal thoughts and denies suicidal intent Homicidal Thoughts: denies homicidal thoughts Hallucinations: no auditory hallucinations and no visual hallucinations denies visual hallucinations presently, but admits to complex visual hallucinations prior to admission Cognition: recent memory grossly intact and language grossly intact Estimated Intelligence: consistent with education level Insight: + limited insight Judgement: + limited judgement Vital Signs (Past 24 Hours): Last Vital Signs Temp 36.4 C L 10/05/20 12:27 Pulse 81 10/05/20 12:27 Resp 22 10/05/20 12:27 BP 122/60 10/05/20 12:27 Pulse Ox 96 10/05/20 12:27 Review of Systems Constitutional: denied Cardiovascular: reports intermittent chest pain Respiratory: reports intermittent shortness of breath Gastrointestinal: denied Neurological: denied Musculoskeletal: reports chronic pain affecting back and legs Psychiatric: denies symptoms other than stated above Total of at least 10 systems reviewed, pertinent positives as above and in HPI. Results & Data (PSY) Medications Administered Albuterol (Albut/Ipratrop 3mg/0.5mg Neb 3 Ml Vial) 3 ml INH TID [facility] Stop: 11/04/20 08:59 Last Admin: 10/05/20 10:33 Dose: 3 ml Documented by: [id number] Aspirin (Aspirin 81 Mg Ectab) 162 mg PO [facility] Stop: 11/04/20 08:59 Last Admin: 10/05/20 09:38 Dose: 162 mg Documented by: [id number] Finasteride ([facility]asteride 5 Mg Tab) [facility] [place]: 11/04/20 08:59 Last Admin: 10/05/20 09:41 Dose: 5 mg Documented by: [id number] Isosorbide Mononitrate (Isosorbide Mineral Extended Rel 60 Mg Tabcr) 60 mg PO [facility] Stop: 11/04/20 08:59 Last Admin: 10/05/20 09:40 Dose: 60 mg Documented by: [id number] Metoprolol Succinate (Metoprolol Succ 25mg Ext Rel Tab) 25 mg PO [facility] Stop: 11/04/20 08:59 Last Admin: 10/05/20 09:43 Dose: 25 mg Documented by: [id number] Multivitamins (Multivitamin Tab) 1 [facility] [place]: 11/04/20 08:59 Last Admin: 10/05/20 09:41 Dose: 1 tab Documented by: [id number] Non-Formulary Medication (Magnesium Oxide) 400 mg PO BID [facility] Stop: 11/04/20 08:59 Last Admin: 10/05/20 10:45 Dose: Not Given Documented by: [id number] Potassium Chloride (Potassium Chloride 10 Meq Tabcr) 10 meq PO BID [facility] Stop: 11/04/20 08:59 Last Admin: 10/05/20 09:40 Dose: 10 meq Documented by: [id number] Sacubitril/Valsartan (Sacubitril-Valsartan 24-26 Mg Tab) 1 tab PO BID [facility] Stop: 11/04/20 08:59 Last Admin: 10/05/20 09:39 Dose: 1 tab Documented by: [id number] Coding Level of Care Code 74345 U Intl Hosp Care Lvl 3
[2020-10-05 15:44] LABS: BUN Creatinine Ratio 13.6 (10-20); Creatinine Clr Calc Pharmacy 75.2 ml/min; Est GFR (African American) 95.4; Est GFR (Non-African American) 82.3; Magnesium 1.5 mg/dl (1.8-2.4); Potassium 3.5 mmol/L (3.5-5.1)
[2020-10-05] MEDS ORDERED: MAGNESIUM SULFATE / D5W 1 GM/100 ML BAG IV ONE (16:05)
[2020-10-05] MEDS: DULoxetine HCL 30 MG CAP PO SCH (20:00)
[2020-10-05] MEDS: DULoxetine HCL 60 MG CAP PO SCH (20:00)
[2020-10-05] MEDS: traZODone HCL 100 MG TAB PO SCH (20:01)
[2020-10-05] MEDS: rOPINIRole HCL 0.25 MG TABLET PO SCH (20:03)
[2020-10-05] MEDS: ATORVASTATIN 40 MG TAB PO SCH (20:03)
[2020-10-05] MEDS: TAMSULOSIN HCL 0.4 MG CAP PO SCH (20:04)
[2020-10-05] MEDS: MAGNESIUM OXIDE 400 MG TAB PO SCH (20:35)
[2020-10-05 23:03] LABS: Calcium 7.8 mg/dl (8.5-10.1); Creatinine Clr Calc Pharmacy 79.8 ml/min; Est GFR (African American) 97.7; Est GFR (Non-African American) 84.3; Magnesium 1.8 mg/dl (1.8-2.4); Potassium 3.7 mmol/L (3.5-5.1)
[2020-10-06] MEDS ORDERED: NICOTINE POLACRILEX 2 MG GUM MT PRN (05:31)
[2020-10-06] MEDS ORDERED: OLANZapine 10 MG/2.1 ML SDV IM STA ×2 (06:12→22:40)
--- NOTE | 2020-10-06 06:18 | Electrocardiogram Report ---
Test Reason : Blood Pressure : / mmHG Vent. Rate : 083 BPM Atrial Rate : 083 BPM P-R Int : 272 ms QRS Dur : 122 ms QT Int : 432 ms P-R-T Axes : 085 -60 085 degrees QTc Int : 507 ms Sinus rhythm with 1st degree A-V block Left axis deviation Left bundle branch block Abnormal ECG When compared with ECG of 20-JUN-2020 08:43, Left bundle branch block is now Present Confirmed by Celestine Grimes ([id number]) on 10/06/2020 6:17:46 AM Referred By: REFERRED SELF Confirmed By:Celestine Grimes
[2020-10-06] MEDS: NICOTINE 14 MG/24 HR PATCH TD SCH ×3 (06:27→07:34)
[2020-10-06] MEDS: OLANZapine 10 MG/2.1 ML SDV IM PRN ×2 (07:45→12:22)
[2020-10-06] MEDS: ALBUT/IPRATROP 3MG/0.5MG NEB 3 ML VIAL INH SCH ×3 (07:51→20:16)
[2020-10-06] MEDS: POTASSIUM CHLORIDE 10 MEQ TABCR PO SCH ×2 (08:15→22:11)
[2020-10-06] MEDS: ASPIRIN 81 MG ECTAB PO SCH (08:15)
[2020-10-06] MEDS: MAGNESIUM OXIDE 400 MG TAB PO SCH ×2 (08:15→22:12)
[2020-10-06] MEDS: SACUBITRIL-VALSARTAN 24-26 MG TAB PO SCH ×2 (08:15→22:11)
[2020-10-06] MEDS: ISOSORBIDE MONO EXTENDED REL 60 MG TABCR PO SCH (08:15)
[2020-10-06] MEDS: MULTIVITAMIN TAB PO SCH (08:15)
[2020-10-06] MEDS: METOPROLOL SUCC 25MG EXT REL TAB PO SCH (08:16)
[2020-10-06] MEDS: FINASTERIDE 5 MG TAB PO SCH (08:16)
--- NOTE | 2020-10-06 08:55 | Hospitalist Progress Note ---
Date of Service October 06, 2020 Assessment & Plan (1) Visual hallucination: (2) Paranoid delusion: This is a 79-year-old male who has significant past medical history of chronic HFrEF, CAD, HTN, HLD, moderate aortic stenosis, T2DM, COPD, long-term tobacco abuse, RLS, LS as with neurogenic claudication, LOLA not on CPAP, depression with anxiety, GERD who presents to ED via 302 petition by police secondary to visual hallucinations x1 day. Patient is alert and oriented x3 but with strong visual hallucinations that occurred yesterday while at home. Patient felt he saw multiple people in his house, "spraying webs," and also saw a "skinny, unsure of gender, person dressed in blue jeans and a red shirt," in his room. He had 2 loaded guns at bedside prior to going to bed. He denied any suicidal or homicidal ideations but was very frightened of the unknown individuals in house; therefore he called police. Police were unable to find anybody in the home. He was brought to ED on 302 petition. Initially felt to be medically stable but upon further lab evaluation was found to have severe electrolyte derangements and therefore medical admission was warranted. No prior history of psychiatric illness. Does have diagnosis depression with anxiety on epic. Admit to med telemetry 1:1 prn consult psych correct electrolyte abnormalities, ? playing a role although mental status is intact check vit b12, rpr ct head negative hold narcotics, pt denies elicit drug use, drug tox screen negative no s/sx of infection consider neuro eval if sx persist This morning 10/06/20 AM, patient agitated, julianne christine was called, patient was placed in restraints, given Zyprexa. Continues to be agitated however/possibly somewhat confused, mumbling. Psychiatry consulted again, Given prolonged QTC, worried about Zyprexa. Per psychiatry, can try Depakote/valproic acid. Metabolic acid ordered. Diarrhea pt reports diarrhea x 2 weeks, no other abd sx or signs of infection check stool culture, stool for cdiff likely culprit of hypomag ? new LBBB Per EKG on admission, patient has new LBBB Per admitting provider, EKG was discussed prior to official read, and felt as it was not new LBBB We will consult cardiology for official recommendations (3) Hypomagnesemia: mag, 0.9 received 2g IV mag sulfate in ED repeat @ 1500, replace as needed (4) Hypocalcemia: Calcium 6.8, may be in setting of low mag Obtain vitamin D and PTH levels Received 1 g calcium gluconate in ED Repeat BMP this afternoon (5) Hyponatremia: Sodium 130 Hold Lasix, although he did receive dose today Serum osm 271, urine osm 127 (low) and urine sodium 30 Received 1 L of IVF in ED Repeat BMP at 1500 Denies any excessive thirst or drinking Repeat sodium improved, will also further discuss with nephrology (6) CAD (coronary artery disease): (7) CHF (congestive heart failure): (8) Aortic stenosis: Chronic HFrEF Last echo 05/2020-EF 40 to 45%, left ventricular hypokinesis, moderate aortic valve stenosis, mild AR Continue ASA, statin, Imdur, Entresto, metoprolol Hold Lasix for now in setting of hyponatremia Daily weights, strict I's and O's Heart healthy diet (9) COPD (chronic obstructive pulmonary disease): No acute exacerbation Continue nebs (10) Smoking: Tobacco abuse will nicotine supplementation as patient has prior history of hallucinations with Chantix (11) BPH (benign prostatic hyperplasia): Continue finasteride and Flomax (12) DVT prophylaxis: Lovenox Dispo: Admit to med telemetry, consult psychiatry, consult case management given 302 petition and possible placement needed Full code PCP: Junaid Gibbons Admission and Anticipated Discharge Date Admission Date: October 05, 2020 Subjective This morning patient was code christine. Per discussion with healthcare providers, patient was able to answer most questions appropriately yesterday, and said it was silly to call the police. Night seem to be uneventful for the patient. However earlier this morning about 6:45 AM, patient became restless and agitated, and was placed into restraints, and received Zyprexa. I was just paged by nursing staff, 9:30 AM, as patient continues to be restless, kicking, biting his IV site off. Patient is laying in bed, mumbling, with his eyes closed however after asking him several times to open his eyes, he does open his eyes. However he then continues to be agitated. I called psychiatry liaison as patient has also prolonged QTC and worried about more doses of Zyprexa. Per Ligia psychiatry liaison, she will contact psychiatrist/physician. In addition, EKG on admission, shows new left bundle branch block, will discuss further with cardiology. We will also further discuss with nephrology electrolyte abnormalities. Review of Systems Review of Systems: Unobtainable due to cognitive status Physical Exam Physical Exam: Unable to obtain full physical exam as patient is in restraints, and kicking, agitated he is breathing comfortably on room air, he is able to follow simple commands, such as opening his eyes for me. He is moving all extremities. Results & Data Results & Data ([facility]) Vital Signs (Past 12 Hours) Vital Signs Temp Pulse Pulse Resp BP Pulse Ox 10/06/20 04:17 37.2 C 94 H 20 135/73 96 10/06/20 00:09 88 10/05/20 23:12 36.9 C 86 18 128/70 93 Laboratory Results 10/05/20 10/05/20 10/05/20 Range/Units 22:27 20:16 16:40 Sodium 135 L (136-145) mmol/L Potassium 3.7 (3.5-5.1) mmol/L Chloride 102 (98-107) mmol/L Carbon Dioxide 26 (21-32) mmol/L Anion Gap 7.0 (3-11) BUN 14 (7-18) mg/dl Creatinine 0.83 (0.6-1.4) mg/dl Est Cr Clr Drug Dosing 79.8 ml/min Est GFR ( Amer) 97.7 Est GFR (Non-Af Amer) 84.3 BUN/Creatinine Ratio 17.0 (10-20) Glucose 111 H (70-99) mg/dl POC Glucose 122 H (70-99) mg/dl Osmolality (280-300) mOsm/kg Calcium 7.8 L (8.5-10.1) mg/dl Phosphorus (2.5-4.9) mg/dl Magnesium 1.8 (1.8-2.4) mg/dl Vitamin B12 (193-986) pg/ml 25-OH Vitamin D Total (30-100) ng/ml PTH Intact (18.4-80.1) pg/ml Urine Osmolality (500-800) mOsm/kg Ur Random Sodium 30 mmol/L RPR 10/05/20 10/05/20 10/05/20 Range/Units 16:40 14:58 13:01 Sodium 131 L (136-145) mmol/L Potassium 3.5 (3.5-5.1) mmol/L Chloride 99 (98-107) mmol/L Carbon Dioxide 25 (21-32) mmol/L Anion Gap 7.0 (3-11) BUN 12 (7-18) mg/dl Creatinine 0.88 (0.6-1.4) mg/dl Est Cr Clr Drug Dosing 75.2 ml/min Est GFR ( Amer) 95.4 Est GFR (Non-Af Amer) 82.3 BUN/Creatinine Ratio 13.6 (10-20) Glucose 113 H (70-99) mg/dl POC Glucose (70-99) mg/dl Osmolality (280-300) mOsm/kg Calcium 7.0 L (8.5-10.1) mg/dl Phosphorus (2.5-4.9) mg/dl Magnesium 1.5 L (1.8-2.4) mg/dl Vitamin B12 (193-986) pg/ml 25-OH Vitamin D Total (30-100) ng/ml PTH Intact (18.4-80.1) pg/ml Urine Osmolality 127 L (500-800) mOsm/kg Ur Random Sodium mmol/L RPR Pending 10/05/20 10/05/20 10/05/20 Range/Units 13:01 13:01 13:01 Sodium (136-145) mmol/L Potassium (3.5-5.1) mmol/L Chloride (98-107) mmol/L Carbon Dioxide (21-32) mmol/L Anion Gap (3-11) BUN (7-18) mg/dl Creatinine (0.6-1.4) mg/dl Est Cr Clr Drug Dosing ml/min Est GFR ( Amer) Est GFR (Non-Af Amer) BUN/Creatinine Ratio (10-20) Glucose (70-99) mg/dl POC Glucose (70-99) mg/dl Osmolality (280-300) mOsm/kg Calcium (8.5-10.1) mg/dl Phosphorus (2.5-4.9) mg/dl Magnesium (1.8-2.4) mg/dl Vitamin B12 721 (193-986) pg/ml 25-OH Vitamin D Total 32.6 (30-100) ng/ml PTH Intact 78.0 (18.4-80.1) pg/ml Urine Osmolality (500-800) mOsm/kg Ur Random Sodium mmol/L RPR 10/05/20 10/05/20 Range/Units 13:01 01:23 Sodium (136-145) mmol/L Potassium (3.5-5.1) mmol/L Chloride (98-107) mmol/L Carbon Dioxide (21-32) mmol/L Anion Gap (3-11) BUN (7-18) mg/dl Creatinine (0.6-1.4) mg/dl Est Cr Clr Drug Dosing ml/min Est GFR ( Amer) Est GFR (Non-Af Amer) BUN/Creatinine Ratio (10-20) Glucose (70-99) mg/dl POC Glucose (70-99) mg/dl Osmolality 271 L (280-300) mOsm/kg Calcium (8.5-10.1) mg/dl Phosphorus 3.2 (2.5-4.9) mg/dl Magnesium 0.9 L* (1.8-2.4) mg/dl Vitamin B12 (193-986) pg/ml 25-OH Vitamin D Total (30-100) ng/ml PTH Intact (18.4-80.1) pg/ml Urine Osmolality (500-800) mOsm/kg Ur Random Sodium mmol/L RPR Medications Administered Current Inpatient Medications Acetaminophen (Acetaminophen 325 Mg Tab) 650 mg PO Q4H PRN PRN Reason: Pain or Fever Stop: 11/04/20 12:26 Al Hydrox/Mg Hydrox/Simethicone (Aluminum/Magnesium Susp 30 Ml Udc) 15 ml PO Q4H PRN PRN Reason: Dyspepsia Stop: 11/04/20 12:26 Albuterol (Albut/Ipratrop 3mg/0.5mg Neb 3 Ml Vial) 3 ml INH TID KD Stop: 11/04/20 08:59 Last Admin: 10/06/20 07:51 Dose: Not Given Documented by: Aspirin (Aspirin 81 Mg Ectab) 162 mg PO QAM KD Stop: 11/04/20 08:59 Last Admin: 10/06/20 08:15 Dose: Not Given Documented by: Atorvastatin Calcium (Atorvastatin 40 Mg Tab) 80 mg PO HS [facility] Stop: 11/04/20 20:59 Last Admin: 10/05/20 20:03 Dose: 80 mg Documented by: Duloxetine HCl (Duloxetine Hcl 60 Mg Cap) 60 mg PO [facility] Stop: 11/04/20 20:59 Last Admin: 10/05/20 20:00 Dose: 60 mg Documented by: Duloxetine HCl (Duloxetine Hcl 30 Mg Cap) 30 mg PO HS [facility] Stop: 11/04/20 20:59 Last Admin: 10/05/20 20:00 Dose: 30 mg Documented by: Finasteride (Finasteride 5 Mg Tab) [facility] Stop: 11/04/20 08:59 Last Admin: 10/06/20 08:16 Dose: Not Given Documented by: Isosorbide Mononitrate (Isosorbide [place] Extended Rel 60 Mg Tabcr) 60 [facility] [place] Stop: 11/04/20 08:59 Last Admin: 10/06/20 08:15 Dose: Not Given Documented by: Loratadine (Loratadine 10 Mg Tab) 10 mg PO DAILY PRN PRN Reason: Allergy Symptoms Stop: 11/04/20 07:31 Magnesium Hydroxide (Magnesium Hydroxide Susp 30 Ml Udc) 30 ml PO Q12H PRN PRN Reason: Constipation Stop: 11/04/20 12:26 Magnesium Oxide (Magnesium Oxide 400 Mg Tab) 400 mg PO BID [facility] Stop: 11/04/20 20:59 Last Admin: 10/06/20 08:15 Dose: Not Given Documented by: Metoprolol Succinate (Metoprolol Succ 25mg Ext Rel Tab) [facility] [place] Stop: 11/04/20 08:59 Last Admin: 10/06/20 08:16 Dose: Not Given Documented by: Miscellaneous (Remove Nicoderm Patch) 1 ea N/A DAILY@0859 [facility] Stop: 11/06/20 08:58 Multivitamins (Multivitamin Tab) 1 tab PO [facility] Stop: 11/04/20 08:59 Last Admin: 10/06/20 08:15 Dose: Not Given Documented by: Nicotine (Nicotine 14 Mg/24 Hr Patch) 14 mg TD [facility] Stop: 11/05/20 05:34 Last Admin: 10/06/20 07:34 Dose: 14 mg Documented by: Nicotine Polacrilex (Nicotine Polacrilex 2 Mg Gum) 1 piece MT Q1H PRN PRN Reason: smoking urge Stop: 11/05/20 05:30 Olanzapine (Olanzapine 10 Mg/2.1 Ml Sdv) 2.5 mg IM Q4H PRN PRN Reason: Anxiety/Agitation Stop: 11/05/20 06:12 Last Admin: 10/06/20 07:45 Dose: 2.5 mg Documented by: Ondansetron HCl (Ondansetron Inj 2 Mg/Ml 2 Ml Vial) 4 mg IV Q6H PRN PRN Reason: Nausea Stop: 11/04/20 12:26 Polyethylene Glycol (Polyethylene (Miralax) 17 Gm Pack) 17 gm PO DAILY PRN PRN Reason: Constipation Stop: 11/04/20 12:26 Potassium Chloride (Potassium Chloride 10 Meq Tabcr) 10 meq PO BID [facility] Stop: 11/04/20 08:59 Last Admin: 10/06/20 08:15 Dose: Not Given Documented by: Ropinirole HCl (Ropinirole Hcl 0.25 Mg Tablet) 0.5 mg PO [facility] Stop: 11/04/20 20:59 Last Admin: 10/05/20 20:03 Dose: 0.5 mg Documented by: Sacubitril/Valsartan (Sacubitril-Valsartan 24-26 Mg Tab) 1 tab PO BID [facility] Stop: 11/04/20 08:59 Last Admin: 10/06/20 08:15 Dose: Not Given Documented by: Tamsulosin HCl (Tamsulosin Hcl 0.4 Mg Cap) 0.4 mg PO [facility] Stop: 11/04/20 20:59 Last Admin: 10/05/20 20:04 Dose: 0.4 mg Documented by: Trazodone HCl (Trazodone Hcl 100 Mg Tab) 50 mg PO [facility] Stop: 11/04/20 20:59 Last Admin: 10/05/20 20:01 Dose: 50 mg Documented by: (1) CHF (congestive heart failure) Heart failure chronicity: acute on chronic Heart failure type: combined systolic and diastolic Qualified Code(s): I50.43 - Acute on chronic combined systolic (congestive) and diastolic (congestive) heart failure (2) Aortic stenosis Cardiac valve disease etiology: nonrheumatic Qualified Code(s): I35.0 - Nonrheumatic aortic (valve) stenosis
--- NOTE | 2020-10-06 09:52 | Nephrology Consultation ---
Date of Consultation October 06, 2020 Assessment & Plan (1) Electrolyte and fluid disorder: He presented October 05 with serum sodium 130, magnesium 0.9, calcium 6.8, serum albumin 3.6. Thyroid function tests were within normal limits. Chemistries were improved as of late last night after supplementation. Sodium correcting at appropriate rate of about 5 mEq/L in 20 or so hours. Osmolality o f serum and urine as well as random urine sodium most consistent with polydipsia. In a patient like this with known smoking history, chronic heart failure with reduced ejection fraction, untreated sleep apnea, would get chest x-ray if possible. PCP was probably correct in attributing electrolyte abnormalities to PPI use earlier this month; recent diarrhea could have been from increase in magnesium dose earlier this month to address low mag as OP in early September. Not sure / cannot tell if pt actually followed through w/ PCP recommendations to lower PPI dose; could improve HB sx potentially by lowering asa usage if appropriate. calcium handling likely affected by low mag. his chemistries have normalized on labs late this am; he is not eating, drinking, or taking po meds so not clear how long labs will stay that way. -CXR 2 view should be ordered when he is less agitated > may shed light on low Na; though labs from admission most c/w polydipsic hyponatremia -f/u bmp, mag from today -Investigate whether aspirin can be lowered to daily to daily 81 mg instead of 162 appreciate consult; will follow with you Present on Admission?: Yes History of Present Illness Reason for Consultation: Electrolyte imbalance, hyponatremia Requesting Physician: Dr. Melvin Attending Physician: Diego Melvin MD History of Present Illness 79-year-old male whom I am asked to evaluate for electro light imbalance and hyponatremia was admitted yesterday to police brought him to the hospital to evaluate paranoid delusions and visual hallucinations. Found on presentation to have significant lecture light abnormalities, including medium 0.9, calcium 6.8, sodium 130. Past medical history includes chronic systolic heart failure (May 2020 EF 40 to 45% with LV hypokinesis and moderate aortic valve stenosis), coronary artery disease, COPD active tobacco abuse, type 2 diabetes, restless leg syndrome, sleep apnea not on CPAP, GERD and history of remote gastric ulcer approximately 2010, depression and anxiety. [facility] to [facility] that he had fallen out of bed most recently 3 weeks back but intermittently due to excessive movements while sleeping. He has no prior history of severe psychiatric illness. He was brought to the ER on a 302 petition after calling the police to come and protect him from multiple people whom he saw in his house; he was noted to have 2 loaded guns at bedside when the police arrived to his home. They were unable to find anyone in the home. Drug tox screen was negative as was CT of the head. No evidence of infection. He did report 2 weeks of diarrhea prior to presentation. He has had issues with low magnesium recently. June 28, outpatient magnesium was 1.1. On September 28, patient magnesium was 0.4 with lower calcium values as well. In early September, PCP reviewed these labs and advised patient to lower PPI to once daily and to double magnesium dosing. Incidentally, baseline creatinine is 1.0-1.2. He takes 162 mg daily aspirin. Pt is extremely agitated this am and overnight. He is on 1:1 at my eval and restrained. he is not eating, has refused po meds, would not allow labs this am though I note that late am after I saw him at 0950 labs were drawn. Allergies Allergy/AdvReac Type Severity Reaction Status Date / Time cefaclor Allergy Intermediate swelling Verified 10/05/20 01:44 aspirin Allergy Mild bleeding Verified 10/05/20 01:44 ulcer (tolerates 81mg) Home Medications Medication Instructions Recorded Confirmed Type atorvastatin [Lipitor] 80 mg PO HS 05/01/19 10/05/20 History finasteride [Proscar] 5 mg PO QAM 05/01/19 10/05/20 History fluticasone propionate [Flonase 2 spray INTRANASAL DAILY 05/01/19 10/05/20 History Allergy Relief] loratadine [Claritin] 10 mg PO DAILY PRN 05/01/19 10/05/20 History multivitamin 1 tab PO QAM 05/01/19 10/05/20 History nitroglycerin [Nitrostat] 0.4 mg SUBLINGUAL UD PRN 05/01/19 10/05/20 History omeprazole 20 mg PO BID 05/01/19 10/05/20 History ropinirole 0.5 mg PO HS 05/01/19 10/05/20 History tamsulosin [Flomax] 0.4 mg PO HS 05/01/19 10/05/20 History trazodone 50 mg PO HS 05/01/19 10/05/20 History hydrocortisone [Proctosol HC] 1 applic [place] QPM PRN 05/27/19 10/05/20 History oxycodone-acetaminophen [Percocet] 1 tab PO Q6H PRN 06/02/19 10/05/20 History acetaminophen [Tylenol Extra 1,000 mg PO Q8 PRN 09/12/19 10/05/20 History Strength] aspirin [Ecotrin Low Strength] 162 mg PO QAM 09/12/19 10/05/20 History metoprolol succinate [Toprol XL] 25 mg PO QAM 09/12/19 10/05/20 History furosemide 40 mg PO QAM #30 tab 09/16/19 10/05/20 Rx isosorbide mononitrate 60 mg PO QAM #30 tab 09/16/19 10/05/20 Rx Entresto 1 tab PO BID 06/19/20 10/05/20 History duloxetine 60 mg PO HS 06/19/20 10/05/20 History ipratropium-albuterol 3 ml INHALATION TID 06/19/20 10/05/20 History lidocaine 1 patch TOPICAL DAILY #15 ea 06/21/20 10/05/20 Rx magnesium oxide 400 mg PO BID #60 cap 06/21/20 10/05/20 Rx potassium chloride 10 meq PO BID #60 cap 06/21/20 10/05/20 Rx duloxetine 30 mg PO HS 10/05/20 10/05/20 History Patient History Medical History Anxiety BPH (benign prostatic hyperplasia) CAD (coronary artery disease) cath 09/15/19 demonstrated 100% occlusion D1 with collaterals, otherwise multivessel disease without severe stenosis COPD (chronic obstructive pulmonary disease) Depression GERD (gastroesophageal reflux disease) controlled Heart attack History of GI bleed + gastric ulcer [place] (hard of hearing) Hyperlipidemia Insomnia Irregular heartbeat Non-ST elevation [place] (NSTEMI) Obesity Osteoarthritis Peripheral vascular disease Poor historian Restless leg Sciatica Seasonal allergies Sleep apnea non compliant w/ cpap Smoking Spinal stenosis Stomach ulcer Valvular heart disease mild aortic stenosis per 09/2018 cardiac cath Surgical History History of cardiac cath 09/2018 - [facility] - CP - NO STENTS 2010 - [facility] - NO STENTS 2007 - BALLOON ANGIOPLASTY LAD PER MEDICAL RECORD 2000 - [facility] - NO STENTS History of cataract surgery History of cholecystectomy History of colonoscopy History of esophagogastroduodenoscopy (EGD) History of right knee surgery x 2 History of tonsillectomy and adenoidectomy Status post total right knee replacement Family History Mother Heart disease Leukemia Father Lung cancer Brother Cancer Other Allergies Hypertension Denies family history of No family history of adverse response to anesthesia Stroke Social History Smoking Status: Current every day smoker Cigarettes Per Day: 20; Second Hand Exposure: Yes; Tobacco Cessation Education Requested by Patient: Yes Hx Alcohol Use: No Hx Substance Use: No Preferred Language: Algerian Communication Ability: Unable Speech Therapist Early Intervention Required: No Beliefs That Will Affect Care: None (raised Sabianist ) marital status: / Current Living Situation: Alone Current Living Situation Comment: Lives in apartment Other Information That Helps Us Care for You: No Feels Safe at Home: Yes Safety Concerns: Feels Safe At This Time Assistive Devices: Walker Review of Systems Review of Systems: Unobtainable due to mental health condition Physical Exam Constitutional: well developed, well nourished, + acute distress (agitation), + obese and + combative lying flat on RA in bed in 2 point restraints; extremely angry /agitated during exam writhing and yelling Eyes: EOM intact bilaterally ENMT: Ears: no external ear abnormality Nose: no external nose abnormality Mouth: + dry oral mucous membranes and + poor dentition Neck: no nuchal rigidity Respiratory: normal respiratory effort Auscultation: lungs clear to auscultation bilaterally (anterior and suboptimal exam; pt not cooperating) and + diminished lung sounds Cardiovascular: Rate/Rhythm: regular rate and regular rhythm Extremities: no edema Gastrointestinal (Abdomen): Inspection/Auscultation: normal bowel sounds Percussion/Palpation: abdomen soft; abdomen nontender Musculoskeletal: Extremities: strength 5/5 throughout Skin: no rashes, warm and dry + ecchymosis (R buttock not examined but reported by nursing) Neurologic: vaughan, fluent speech, no tremor observed though rubs L side w/ L fingertips (?near pill rolling) Psychiatric: Apperance: + disheveled Eye Contact: + poor eye contact (keeps eyes squeezed shut) Speech: + loud speech Affect: + irritable affect and + angry affect Mood: + angry mood Insight: + poor insight Judgement: + po or judgement Results & Data ([facility]) Vital Signs (Past 12 Hours) Vital Signs Temp Pulse Pulse Resp BP Pulse Ox 10/06/20 04:17 37.2 C 94 H 20 135/73 96 10/06/20 00:09 88 10/05/20 23:12 36.9 C 86 18 128/70 93 Laboratory Results 10/05/20 01:23 10/05/20 22:27 (Admission labs) urine osmolality 127, random urine sodium 30, serum osmolality 271 (Admission labs) PTH 78, 25 hydroxy vitamin D 33 Magnesium 1.8, calcium 7.8 <<October 05 2300 labs Admission urinalysis: pH 6.5 specific gravity 1010 trace protein on dipstick, 5- 10 red cells, 10-20 epithelial cells. Other indices negative VBG reviewed and without significant abnormalities Diagnostic Findings ECG with new left bundle branch block Head CT without acute intracranial abnormality
[2020-10-06] MEDS ORDERED: VALPROATE SOD 500 MG in DEXTROSE 5% 50 ML IV ONE ×2 (10:00→11:15)
[2020-10-06 11:12] LABS: Hematocrit (blood only) 36.1 % (42-52); Hemoglobin 12.7 g/dL (14.0-18.0); Mean Corpuscular Hemoglobin 30.5 pg (25-34); Mean Corpuscular Hgb Conc 35.2 g/dL (32-36); Mean Corpuscular Volume 86.8 fL (80-100); Mean Platelet Volume 9.6 fL (7.4-10.4); Platelet Count 270 K/uL (130-400); RDW Coefficient of Variation 15.4 % (11.5-14.5); RDW Standard Deviation 48.6 fL (36.4-46.3); Red Blood Count 4.16 M/uL (4.7-6.1); White Blood Count 7.98 K/uL (4.8-10.8)
[2020-10-06 12:12] LABS: BUN Creatinine Ratio 12.4 (10-20); Calcium 8.5 mg/dl (8.5-10.1); Est GFR (African American) 78.4; Est GFR (Non-African American) 67.7; Magnesium 1.9 mg/dl (1.8-2.4); Phosphorus 3.1 mg/dl (2.5-4.9); Potassium 4.4 mmol/L (3.5-5.1)
--- NOTE | 2020-10-06 12:50 | Psychiatric Progress Note ---
Date of Service October 06, 2020 Impression / Recommendations Impression Dr. Lucero Melendez was directly involved in review and discussion of the patient's case and participated in medical decision making regarding treatment recommendations. RECOMMENDATIONS: 10/05/20 - Psychiatric consultation was requested by our hospitalist team to evaluate the patient due to acute onset of paranoia/delusions and visual hallucinations. Pt is prescribed 90mg of duloxetine daily - which he states was initiated for chronic back pain and has been helpful. - Agree with further work-up to assess for possible organic etiology. Onset of confusion/paranoia/delusions seems to be rather acute, which indicates his symptoms are less likely to be directly related to a primary psychiatric condition. Furthermore, visual hallucinations more likely associated with organic etiology (metabolic encephalopathy/delirium, neurodegenerative diseases, seizures, retinal pathology, drug/alcohol withdrawal). It is highly unlikely that patient is developing a new onset thought disorder at his age. - Stretching the differential, there is also possibility that these are hypnagogic/hypnopompic visual hallucinations, which could indicate possible narcolepsy or other sleep disorder. It is being mentioned by the patient that he has been falling out of bed intermittently due to excessive movements while sleeping/dreaming - last known fall was 3 weeks ago. He denies history of sleep studies. This history also begs the question of possible head injury leading to acute mental status change. - It will be helpful to get collateral information from the patient's granddaughter. He did sign an TESSA for communication, but requested we use "discretion", allowing us to gather information but requesting only "general stuff" be revealed to family. This will help to further determine recommendations regarding discharge planning. - Recommend contacting police to confirm that firearms have been secured, given the acute safety concerns for possible harm to self or others that occurr ed prior to patient's admission. - Appreciate the opportunity to participate in this interesting case, please reach out to our service with any additional questions or updates. 10/06/20 - Pt is presenting as delirious. He is disoriented and confused, agitated, pulling at soft arm restraints. Speech is dysarthric at baseline, but this is more pronounced currently. - Avoid antipsychotic medications given prolonged QTc - olanzapine IM prn was discontinued. Cardiology consultation was requested by the hospitalist service for LBBB. - 1mg lorazepam IV q4h prn anxiety initiated, could titrate if necessary to target behavior, though with caution given patient's age and history of respiratory conditions. Although benzodiazepines are not generally ideal to manage acute agitation in an elderly patient, it does seem to be the most appropriate option at this time given patient's prolonged QTc and continued agitation which is putting patient at risk of harm to self and others. There is a potential risk of associated with IV/IM lorazepam and IM olanzapine being given within 1 hour of each other. Would particularly suggest avoiding olanzapine. - Would continue valproic acid 500mg TID for the time being, given limited medication options to target acute agitation. LFTs reviewed and within normal limits. Monitor for signs of toxicity given advanced age. Would need to check blood level after 5 days if patient is continued on this medication longer term. - Consideration could be given to transfer to ICU and use of ketamine if patient continues to be agitated with acute risk of harm to self and others. Admittedly our service is not familiar with this process and ideally additional input from a more familiar service could be obtained if this were to be consider. Risk Factors Assessment Do You Have Access To A Gun?: Yes (though reported to have been secured by police) Interval History Identifying Information 79-year-old male admitted medically on 10/05/20 after presenting to the ED with reports of visual hallucinations and paranoia/delusions. Pt was brought to the ED by police, who completed a 302 petitioning statement based on his paranoid behaviors and having unsafe access to guns. Psychiatric consultation was requested to evaluate patient for hallucinations, paranoia. Chief Complaint "Eldon, come here Eldon. Get this damn thing off me." Review of Systems Notes Pt is unable to participate in productive review of systems. He is yelling out, requesting his "jacket" (which he is not wearing) be removed because he is hot. Subjective Subjective Patient's case was reviewed and discussed during morning report with psychiatric nurse liaison and supervising psychiatrist. Received report that patient was a code christine around 6:30-7:00 this morning, reportedly related to resistance assistance with ambulating to the bathroom. Pt is in soft-limb restraints and was reportedly continuing to present as agitated, pulling a restraints and yelling out. Request was received from primary team to offer medication recommendations. Pt had 3 doses of IM olanzapine 2.5mg in attempts to improved escalating behavior. Given that patient had just been given olanzapine IM, he was not a candidate for IM/IV lorazepam for an hour after his last dose. Pt was given IV valproic acid 500mg. This provider did meet with the patient to assess his behavior. Pt was yelling loudly, demonstrating agitated behavior. He was yelling out of "Eldon" and asking that he help to remove his "jacket" - patient was dressed in a hospital gown. Pt's eyes were tightly closed for most of our encounter. He did not verbalize knowledge of where he was when asked, he is not able to participate in productive conversation and does appear delirious at this time. Physical Exam Psychiatric Orientation: + not oriented x 3 Disoriented, rambling, clearly confused. Apperance: + disheveled and appeared stated age Elderly, male - laying in bed, constantly pulling at soft limb restraints. Frequently attempting to reposition himself. Eye Contact: + poor eye contact (eyes tightly closed for most of encounter) Motor Behavior: + psychomotor agitation (agitated, pulling at soft limb restraints) Speech: + abnormal rate/rhythm/volume of speech rambling speech, primarily dysarthric - he is calling out to "Eldon" to help remove his "jacket" - though he is not wearing one. Affect: + irritable affect and + angry affect Thought Process: + tangential thought process (disoriented, delirious) Thought Content: + delusions Hallucinations: unable to communicate, seems to be responding to stimuli - calling out to "Eldon" Cognition: + recent memory not intact, + attention not intact and + language not intact Insight: + severely impaired insight Judgement: + severely impaired judgement Vital Signs (Past 24 Hours) Last Vital Signs Temp 37.2 C 10/06/20 04:17 Pulse 94 H 10/06/20 04:17 Resp 20 10/06/20 04:17 BP 135/73 10/06/20 04:17 Pulse Ox 96 10/06/20 04:17 Results & Data ([facility]) Laboratory Results Laboratory Results - last 24 hr 10/05/20 10/05/20 10/05/20 13:01 13:01 13:01 WBC RBC Hgb Hct MCV MCH MCHC RDW Std Deviation RDW Coeff of Deborah Plt Count MPV Sodium Potassium Chloride Carbon Dioxide Anion Gap BUN Creatinine Est Cr Clr Drug Dosing Est GFR ( Amer) Est GFR (Non-Af Amer) BUN/Creatinine Ratio Glucose POC Glucose Osmolality 271 L Calcium Phosphorus Magnesium Vitamin B12 721 25-OH Vitamin D Total PTH Intact 78.0 Urine Osmolality Ur Random Sodium RPR 10/05/20 10/05/20 10/05/20 13:01 13:01 14:58 WBC RBC Hgb Hct MCV MCH MCHC RDW Std Deviation RDW Coeff of Deborah Plt Count MPV Sodium 131 L Potassium 3.5 Chloride 99 Carbon Dioxide 25 Anion Gap 7.0 BUN 12 Creatinine 0.88 Est Cr Clr Drug Dosing 75.2 Est GFR ( Amer) 95.4 Est GFR (Non-Af Amer) 82.3 BUN/Creatinine Ratio 13.6 Glucose 113 H POC Glucose Osmolality Calcium 7.0 L Phosphorus Magnesium 1.5 L Vitamin B12 25-OH Vitamin D Total 32.6 PTH Intact Urine Osmolality Ur Random Sodium RPR Pending 10/05/20 10/05/20 10/05/20 16:40 16:40 20:16 WBC RBC Hgb Hct MCV MCH MCHC RDW Std Deviation RDW Coeff of Deborah Plt Count MPV Sodium Potassium Chloride Carbon Dioxide Anion Gap BUN Creatinine Est Cr Clr Drug Dosing Est GFR ( Amer) Est GFR (Non-Af Amer) BUN/Creatinine Ratio Glucose POC Glucose 122 H Osmolality Calcium Phosphorus Magnesium Vitamin B12 25-OH Vitamin D Total PTH Intact Urine Osmolality 127 L Ur Random Sodium 30 RPR 10/05/20 10/06/20 10/06/20 22:27 10:55 10:55 WBC 7.98 RBC 4.16 L Hgb 12.7 L Hct 36.1 L MCV 86.8 MCH 30.5 MCHC 35.2 RDW Std Deviation 48.6 H RDW Coeff of Deborah 15.4 H Plt Count 270 MPV 9.6 Sodium 135 L 138 Potassium 3.7 4.4 D Chloride 102 105 Carbon Dioxide 26 26 Anion Gap 7.0 7.0 BUN 14 13 Creatinine 0.83 1.05 Est Cr Clr Drug Dosing 79.8 63.0 Est GFR ( Amer) 97.7 78.4 Est GFR (Non-Af Amer) 84.3 67.7 BUN/Creatinine Ratio 17.0 12.4 Glucose 111 H 106 H POC Glucose Osmolality Calcium 7.8 L 8.5 Phosphorus 3.1 Magnesium 1.8 1.9 Vitamin B12 25-OH Vitamin D Total PTH Intact Urine Osmolality Ur Random Sodium RPR Current Inpatient Medications Current Inpatient Medications: Current Inpatient Medications Acetaminophen (Acetaminophen 325 Mg Tab) 650 mg PO Q4H PRN PRN Reason: Pain or Fever Stop: 11/04/20 12:26 Al Hydrox/Mg Hydrox/Simethicone (Aluminum/Magnesium Susp 30 Ml Udc) 15 ml PO Q4H PRN PRN Reason: Dyspepsia Stop: 11/04/20 12:26 Albuterol (Albut/Ipratrop 3mg/0.5mg Neb 3 Ml Vial) 3 ml INH TID [facility] Stop: 11/04/20 08:59 Last Admin: 10/06/20 12:45 Dose: Not Given Documented by: Aspirin (Aspirin 81 Mg Ectab) 162 mg PO QAM [facility] Stop: 11/04/20 08:59 Last Admin: 10/06/20 08:15 Dose: Not Given Documented by: Atorvastatin Calcium (Atorvastatin 40 Mg Tab) 80 mg PO [facility] Stop: 11/04/20 20:59 Last Admin: 10/05/20 20:03 Dose: 80 mg Documented by: Duloxetine HCl (Duloxetine Hcl 60 Mg Cap) 60 mg PO [facility] Stop: 11/04/20 20:59 Last Admin: 10/05/20 20:00 Dose: 60 mg Documented by: Duloxetine HCl (Duloxetine Hcl 30 Mg Cap) 30 mg PO [facility] Stop: 11/04/20 20:59 Last Admin: 10/05/20 20:00 Dose: 30 mg Documented by: Finasteride ([facility]asteride 5 Mg Tab) [facility] [place] Stop: 11/04/20 08:59 Last Admin: 10/06/20 08:16 Dose: Not Given Documented by: Isosorbide Mononitrate (Isosorbide [place] Extended Rel 60 Mg Tabcr) 60 [facility] [place] Stop: 11/04/20 08:59 Last Admin: 10/06/20 08:15 Dose: Not Given Documented by: Loratadine (Loratadine 10 Mg Tab) 10 mg PO DAILY PRN PRN Reason: Allergy Symptoms Stop: 11/04/20 07:31 Magnesium Hydroxide (Magnesium Hydroxide Susp 30 Ml Udc) 30 ml PO Q12H PRN PRN Reason: Constipation Stop: 11/04/20 12:26 Magnesium Oxide (Magnesium Oxide 400 Mg Tab) 400 mg PO BID [facility] Stop: 11/04/20 20:59 Last Admin: 10/06/20 08:15 Dose: Not Given Documented by: Metoprolol Succinate (Metoprolol Succ 25mg Ext Rel Tab) 25 mg PO QAM [facility] Stop: 11/04/20 08:59 Last Admin: 10/06/20 08:16 Dose: Not Given Documented by: Miscellaneous (Remove Nicoderm Patch) 1 ea N/A DAILY@0859 [facility] Stop: 11/06/20 08:58 Multivitamins (Multivitamin Tab) 1 tab PO QAM [facility] Stop: 11/04/20 08:59 Last Admin: 10/06/20 08:15 Dose: Not Given Documented by: Nicotine (Nicotine 14 Mg/24 Hr Patch) 14 mg TD QAM [facility] Stop: 11/05/20 05:34 Last Admin: 10/06/20 07:34 Dose: 14 mg Documented by: Nicotine Polacrilex (Nicotine Polacrilex 2 Mg Gum) 1 piece MT Q1H PRN PRN Reason: smoking urge Stop: 11/05/20 05:30 Olanzapine (Olanzapine 10 Mg/2.1 Ml Sdv) 2.5 mg IM Q4H PRN PRN Reason: Anxiety/Agitation Stop: 11/05/20 06:12 Last Admin: 10/06/20 12:22 Dose: 2.5 mg Documented by: Ondansetron HCl (Ondansetron Inj 2 Mg/Ml 2 Ml Vial) 4 mg IV Q6H PRN PRN Reason: Nausea Stop: 11/04/20 12:26 Polyethylene Glycol (Polyethylene (Miralax) 17 Gm Pack) 17 gm PO DAILY PRN PRN Reason: Constipation Stop: 11/04/20 12:26 Potassium Chloride (Potassium Chloride 10 Meq Tabcr) 10 meq PO BID [facility] Stop: 11/04/20 08:59 Last Admin: 10/06/20 08:15 Dose: Not Given Documented by: Ropinirole HCl (Ropinirole Hcl 0.25 Mg Tablet) 0.5 mg PO HS [facility] Stop: 11/04/20 20:59 Last Admin: 10/05/20 20:03 Dose: 0.5 mg Documented by: Sacubitril/Valsartan (Sacubitril-Valsartan 24-26 Mg Tab) 1 tab PO BID [facility] Stop: 11/04/20 08:59 Last Admin: 10/06/20 08:15 Dose: Not Given Documented by: Tamsulosin HCl (Tamsulosin Hcl 0.4 Mg Cap) 0.4 mg PO [facility] Stop: 11/04/20 20:59 Last Admin: 10/05/20 20:04 Dose: 0.4 mg Documented by: Trazodone HCl (Trazodone Hcl 100 Mg Tab) 50 mg PO [facility] Stop: 11/04/20 20:59 Last Admin: 10/05/20 20:01 Dose: 50 mg Documented by:
[2020-10-06] MEDS ORDERED: LORazepam 2 MG/ML VIAL (IM USE) IM PRN (13:22)
--- NOTE | 2020-10-06 13:29 | Cardiology Consultation ---
Date of Consultation October 06, 2020 Assessment & Plan (1) LBBB (left bundle branch block): Cardiology consultation requested regarding possible new left bundle branch block. Prior ECGs reviewed. It appears he has an intermittent left bundle pattern. Specifically, ECG performed on September 12, 2019 at 21:42 is nearly identical to the ECG performed during this admission. There are no reports of anginal symptoms, dyspnea, palpitations, syncope or near syncope preceding the current hospitalization. No further testing is warranted at this time. (2) Nonsustained ventricular tachycardia: 2 brief salvos recorded overnight. Patient is quite agitated and has not received his beta-maximino. Likely noncompliant with beta-maximino therapy prior to admission. Electrolyte derangements also contribute including hypomagnesemia, and hypokalemia. He is currently refusing oral medications. Recommend intravenous Lopressor, 2.5 mg every 6 hours. Resume Toprol-XL when patient's mental status has improved. Replace electrolytes to maintain a serum potassium level greater than 4.0, and a serum magnesium level greater than 2.0. (3) Electrolyte and fluid disorder: Supplement potassium and magnesium as indicated. (4) CAD (coronary artery disease): Most recent cardiac catheterization performed 09/12/2019 due to elevated troponins and congestive heart failure. First diagonal branch occlusion visualized filling late via left to left collaterals, otherwise, no significant obstructive coronary disease. (5) Paranoid delusion: Etiology of acute delirium unclear. Hyponatremia improving since admission. Serum electrolytes replaced as indicated. Normal TSH, B12 noted. His urine drug screen demonstrates undetectable opiates and ethanol. No overt signs of infection. Patient is afebrile with normal white blood cell count. Urinalysis is benign. Further evaluation and treatment as per internal medicine and psychiatry. (6) Visual hallucination: History of Present Illness Reason for Consultation: LBBB Requesting Physician: Dr. Melvin Attending Physician: Diego Melvin MD History of Present Illness 79-year-old patient presented to the ER via 302 by police. Patient suffered hallucinations prior to arrival. Reports seeing individuals in his home. This prompted him to pull a gun from his bedside cabinet and loaded. The police were summoned who ultimately brought the patient to the ER for further evaluation and treatment. He is unable to offer meaningful history due to confusion and on going hallucinations. He is agitated and combative. Per chart review, his granddaughter frequently checks on him. He was in his usual state of health up until approximately 2 days ago. There is no reported chest discomfort or shortness of breath. No recent medication changes from a cardiovascular perspective. He does chronically utilize narcotic pain medication and some antidepressive meds. No recent weight gain, edema, orthopnea, or PND. A cardiology consultation was requested on admission due to left bundle branch block on ECG. Allergies Allergy/AdvReac Type Severity Reaction Status Date / Time cefaclor Allergy Intermediate swelling Verified 10/05/20 01:44 aspirin Allergy Mild bleeding Verified 10/05/20 01:44 ulcer (tolerates 81mg) Home Medications Medication Instructions Recorded Confirmed Type atorvastatin [Lipitor] 80 mg PO HS 05/01/19 10/05/20 History finasteride [Proscar] 5 mg PO QAM 05/01/19 10/05/20 History fluticasone propionate [Flonase 2 spray INTRANASAL DAILY 05/01/19 10/05/20 History Allergy Relief] loratadine [Claritin] 10 mg PO DAILY PRN 05/01/19 10/05/20 History multivitamin 1 tab PO QAM 05/01/19 10/05/20 History nitroglycerin [Nitrostat] 0.4 mg SUBLINGUAL UD PRN 05/01/19 10/05/20 History omeprazole 20 mg PO BID 05/01/19 10/05/20 History ropinirole 0.5 mg PO HS 05/01/19 10/05/20 History tamsulosin [Flomax] 0.4 mg PO HS 05/01/19 10/05/20 History trazodone 50 mg PO HS 05/01/19 10/05/20 History hydrocortisone [Proctosol HC] 1 applic PA QPM PRN 05/27/19 10/05/20 History oxycodone-acetaminophen [Percocet] 1 tab PO Q6H PRN 06/02/19 10/05/20 History acetaminophen [Tylenol Extra 1,000 mg PO Q8 PRN 09/12/19 10/05/20 History Strength] aspirin [Ecotrin Low Strength] 162 mg PO QAM 09/12/19 10/05/20 History metoprolol succinate [Toprol XL] 25 mg PO QAM 09/12/19 10/05/20 History furosemide 40 mg PO QAM #30 tab 09/16/19 10/05/20 Rx isosorbide mononitrate 60 mg PO QAM #30 tab 09/16/19 10/05/20 Rx Entresto 1 tab PO BID 06/19/20 10/05/20 History duloxetine 60 mg PO HS 06/19/20 10/05/20 History ipratropium-albuterol 3 ml INHALATION TID 06/19/20 10/05/20 History lidocaine 1 patch TOPICAL DAILY #15 ea 06/21/20 10/05/20 Rx magnesium oxide 400 mg PO BID #60 cap 06/21/20 10/05/20 Rx potassium chloride 10 meq PO BID #60 cap 06/21/20 10/05/20 Rx duloxetine 30 mg PO HS 10/05/20 10/05/20 History Patient History Medical History Anxiety BPH (benign prostatic hyperplasia) CAD (coronary artery disease) cath 09/15/19 demonstrated 100% occlusion D1 with collaterals, otherwise multivessel disease without severe stenosis COPD (chronic obstructive pulmonary disease) Depression GERD (gastroesophageal reflux disease) controlled Heart attack History of GI bleed + gastric ulcer [place] (hard of hearing) Hyperlipidemia Insomnia Irregular heartbeat Non-ST elevation AL (NSTEMI) Obesity Osteoarthritis Peripheral vascular disease Poor historian Restless leg Sciatica Seasonal allergies Sleep apnea non compliant w/ cpap Smoking Spinal stenosis Stomach ulcer Valvular heart disease mild aortic stenosis per 09/2018 cardiac cath Surgical History History of cardiac cath 09/2018 - [facility] - [facility] - NO STENTS 2010 - [facility] - NO STENTS 2007 - [facility] ANGIOPLASTY LAD PER MEDICAL RECORD 2000 - [facility] - NO STENTS History of cataract surgery History of cholecystectomy History of colonoscopy History of esophagogastroduodenoscopy (EGD) History of right knee surgery x 2 History of tonsillectomy and adenoidectomy Status post total right knee replacement Family History Mother Heart disease Leukemia Father Lung cancer Brother Cancer Other Allergies Hypertension Denies family history of No family history of adverse response to anesthesia Stroke Social History Smoking Status: Current every day smoker Cigarettes Per Day: 20; Second Hand Exposure: Yes; Tobacco Cessation Education Requested by Patient: Yes Hx Alcohol Use: No Hx Substance Use: No Preferred Language: [place] Communication Ability: Unable Revenue Manager Required: No Beliefs That Will Affect Care: None (raised [place] ) marital status: / Current Living Situation: Alone Current Living Situation Comment: Lives in apartment Other Information That Helps Us Care for You: No Feels Safe at Home: Yes Safety Concerns: Feels Safe At This Time Assistive Devices: Walker Review of Systems Review of Systems: Unobtainable due to cognitive status Physical Exam Constitutional: + obese, + disheveled and + combative; no acute distress Eyes: + abnormal pupil size (Constricted pupils bilaterally, although, reactive) Respiratory: no respiratory distress and no labored breathing Auscultation: no crackles, no rales, no rhonchi and no wheezes Cardiovascular: Rate/Rhythm: regular rate and regular rhythm Heart Sounds: normal S1 and normal S2; no murmur Vessels: no JVD Extremities: no edema Gastrointestinal (Abdomen): Inspection/Auscultation: abdomen normal to inspection and normal bowel sounds; abdomen not distended Percussion/Palpation: abdomen nontender, no guarding and abdomen not rigid Neurologic: moves all extremities Motor/Sensory: no tremor Results & Data ([facility]) Vital Signs (Past 12 Hours) Vital Signs Temp Pulse Resp BP Pulse Ox 10/06/20 04:17 37.2 C 94 H 20 135/73 96 (1) CAD (coronary artery disease) Associated angina: unspecified whether angina present Coronary Disease-A ssociated Artery/Lesion type: douglas artery [place] vs. transplanted heart: douglas heart Qualified Code(s): I25.10 - Atherosclerotic heart disease of douglas coronary artery without angina pectoris
[2020-10-06] MEDS: LORazepam 1 MG/2 ML VIAL IV PRN (14:04)
[2020-10-06] MEDS: METOPROLOL TARTRATE 1 MG/ML VIAL IV SCH ×2 (15:51→23:07)
[2020-10-06] MEDS ORDERED: LORazepam 0.5 MG/1 ML VIAL IV STA (16:29)
[2020-10-06] MEDS ORDERED: VANCOMYCIN HCL 2,000 MG in SODIUM CHLORIDE 0.9% 500 ML IV ONE (17:45)
[2020-10-06 17:54] LABS: Base Excess ABG -1.1 mEq/L (-9-1.8); HCO3 ABG 22 mmol/L (19-24); Oxygen Saturation ABG 91.6 % (90-95); PCO2 ABG 33 mmHg (35-46); PO2 ABG 60 mmHg (80-95); pH ABG 7.45 (7.35-7.45)
[2020-10-06 18:25] LABS: Allen Test POS (Pos)
--- NOTE | 2020-10-06 18:30 | XRay Report ---
XR chest 1V portable CLINICAL HISTORY: AMS, infect. eval COMPARISON STUDY: Chest radiograph September 14, 2019. Chest CT June 19, 2020. FINDINGS: Lung volumes are normal. There is no pneumothorax or pleural effusion. Cardiomegaly is unch anged. Interstitial thickening is present. No consolidation is identified. Linear left basilar opacit y favors atelectasis. IMPRESSION: 1. Interstitial thickening. This favors pulmonary vascular congestion with possible mild pulmonary ed jeremy. An infectious process could appear similar but is considered less likely. 2. Stable cardiomegaly. ACT 112: Negative or not required by law. Electronically signed by: Lionel Sprague M.D. 10/06/2020 6:29 PM
[2020-10-06] MEDS ORDERED: VANCOMYCIN CONSULT ACTIVE PRN (19:45)
--- NOTE | 2020-10-06 19:50 | Pharmacy Report ---
Pharmacy Abx Initial Consult - Date of Service October 06, 2020 - Pharmacy Dosing Scope Date of Consult: 10/06/20 Consultation requested by: Dr. Melvin Pharmacy is consulted to initiate VANC IV dosing therapy, order appropriate labs and adjust drug dose/frequency. - Subjective The patient is a 79 year old M admitted on 10/05/20 10:36. Ordered Vanc/amp/ceftriaxone for possible meningitis. Pt reports cefaclor allergy. Pt has received cefazolin since that allery being reported. Discussed with provider, will trial amp/ceftriaxone. - Objective Height: 5 ft 6 in Weight: 96.5 kg Vital Signs (Past 12hrs): Vital Signs Temp Pulse Resp BP Pulse Ox 10/06/20 15:42 37.3 C 117 H 20 146/60 H 95 Lab Results (24hrs): Laboratory Tests (24 Hours) 10/06/20 10/06/20 10/05/20 10:55 10:55 22:27 WBC 7.98 Creatinine 1.05 0.83 Est Cr Clr Drug Dosing 63.0 79.8 - Assessment & Plan Plan Patient meets criteria for vancomycin AUC dosing nomogram AUC/NAYA is the preferred PK/PD target for vancomycin Target AUC/NAYA = 400-600 AUC guided dosing is effective and associated with decreased risk of nephrotoxicity Pharmacy will continue to follow and will adjust dose/frequency as necessary. Thank you.
[2020-10-06] MEDS: AMPICILLIN 2,000 MG in SODIUM CHLOR 0.9% AD-VAN 100 ML IV SCH (21:38)
[2020-10-06] MEDS: cefTRIAXone SODIUM 2,000 MG in DEXTROSE 5% 50 ML IV SCH (22:10)
[2020-10-06] MEDS: DULoxetine HCL 60 MG CAP PO SCH (22:10)
[2020-10-06] MEDS: DULoxetine HCL 30 MG CAP PO SCH (22:10)
[2020-10-06] MEDS: traZODone HCL 100 MG TAB PO SCH (22:11)
[2020-10-06] MEDS: TAMSULOSIN HCL 0.4 MG CAP PO SCH (22:11)
[2020-10-06] MEDS: rOPINIRole HCL 0.25 MG TABLET PO SCH (22:12)
[2020-10-06] MEDS: ATORVASTATIN 40 MG TAB PO SCH (22:12)
[2020-10-06] MEDS: VALPROATE SOD 500 MG in DEXTROSE 5% 50 ML IV SCH (22:35)
[2020-10-07] MEDS: AMPICILLIN 2,000 MG in SODIUM CHLOR 0.9% AD-VAN 100 ML IV SCH ×5 (01:42→16:48)
[2020-10-07] MEDS: METOPROLOL TARTRATE 1 MG/ML VIAL IV SCH ×4 (03:41→22:33)
[2020-10-07] MEDS ORDERED: VANCOMYCIN HCL 1,250 MG in SODIUM CHLORIDE 0.9% 250 ML IV SCH (04:00)
[2020-10-07 07:12] LABS: Hematocrit (blood only) 36.5 % (42-52); Hemoglobin 12.5 g/dL (14.0-18.0); Mean Corpuscular Hemoglobin 30.3 pg (25-34); Mean Corpuscular Hgb Conc 34.2 g/dL (32-36); Mean Corpuscular Volume 88.4 fL (80-100); Mean Platelet Volume 9.6 fL (7.4-10.4); Platelet Count 252 K/uL (130-400); RDW Coefficient of Variation 15.6 % (11.5-14.5); RDW Standard Deviation 49.7 fL (36.4-46.3); Red Blood Count 4.13 M/uL (4.7-6.1); White Blood Count 11.48 K/uL (4.8-10.8)
[2020-10-07] MEDS: ALBUT/IPRATROP 3MG/0.5MG NEB 3 ML VIAL INH SCH ×3 (07:20→19:39)
[2020-10-07 07:41] LABS: Albumin Level 3.5 gm/dl (3.4-5.0); BUN Creatinine Ratio 13.9 (10-20); Calcium 7.7 mg/dl (8.5-10.1); Creatinine Clr Calc Pharmacy 71.2 ml/min; Est GFR (African American) 90.8; Est GFR (Non-African American) 78.4; Magnesium 2.1 mg/dl (1.8-2.4); Potassium 3.9 mmol/L (3.5-5.1)
[2020-10-07 07:46] LABS: Albumin Globulin Ratio 0.9 (0.9-2); Bilirubin,Total 0.9 mg/dl (0.2-1); Globulin 3.9 gm/dl (2.5-4.0); Phosphorus 3.3 mg/dl (2.5-4.9); Total Protein 7.4 gm/dl (6.4-8.2)
[2020-10-07] MEDS: LORazepam 1 MG/2 ML VIAL IV PRN (07:47)
[2020-10-07] MEDS: NICOTINE 14 MG/24 HR PATCH TD SCH (07:56)
[2020-10-07] MEDS ORDERED: ACETAMINOPHEN 1000 MG/100 ML IV IV ONE (08:07)
[2020-10-07] MEDS ORDERED: FUROSEMIDE 20 MG in SYRINGE 0 ML IV ONE (08:30)
[2020-10-07] MEDS: cefTRIAXone SODIUM 2,000 MG in DEXTROSE 5% 50 ML IV SCH (09:31)
[2020-10-07] MEDS: THIAMINE HCL 100 MG in SYRINGE 9 ML IV SCH (09:32)
[2020-10-07] MEDS: FOLIC ACID 1 MG in SYRINGE 9.8 ML IV SCH (09:32)
[2020-10-07] MEDS: FINASTERIDE 5 MG TAB PO SCH (09:35)
[2020-10-07] MEDS: POTASSIUM CHLORIDE 10 MEQ TABCR PO SCH ×3 (09:35→21:42)
[2020-10-07] MEDS: MAGNESIUM OXIDE 400 MG TAB PO SCH ×3 (09:35→21:43)
[2020-10-07] MEDS: SACUBITRIL-VALSARTAN 24-26 MG TAB PO SCH ×3 (09:35→21:42)
[2020-10-07] MEDS: ISOSORBIDE MONO EXTENDED REL 60 MG TABCR PO SCH (09:35)
[2020-10-07] MEDS: ASPIRIN 81 MG ECTAB PO SCH (09:35)
[2020-10-07] MEDS: MULTIVITAMIN TAB PO SCH (09:35)
[2020-10-07] MEDS: METOPROLOL SUCC 25MG EXT REL TAB PO SCH (09:36)
[2020-10-07] MEDS: VALPROATE SOD 500 MG in DEXTROSE 5% 50 ML IV SCH ×3 (10:00→20:00)
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
--- NOTE | 2020-10-07 11:51 | Cardiology Progress Note ---
Date of Service October 07, 2020 Assessment & Plan (1) LBBB (left bundle branch block): Intermittent left bundle branch block documented on prior ECG. Specifically, ECG performed on September 12, 2019 at 21:42 is nearly identical to the ECG performed during this admission. Ejection fraction 40-45% per most recent echocardiogram in May. There are no reports of anginal symptoms, dyspnea, palpitations, syncope or near syncope preceding the current hospitalization. Repeat ECG performed 10/06/2020 unchanged. (2) Acute heart failure with reduced ejection fraction and diastolic dysfunction: Patient with history of ischemic cardiomyopathy and ejection fraction of 40-45%. Mild vascular congestion noted on x-ray due to positive fluid balance (1200cc) in the setting of IV antibiotic therapy and medications. Has not received chronic heart failure medications including Entresto, nitrates, and diuretic therapy. Recommend cautious addition of 20 mg IV Lasix x1 now then daily to improve fluid balance. He is currently not consuming anything by mouth. Monitor fluid balance and renal function closely. Resume oral medications when patient able. (3) Aortic stenosis: Moderate per most recent echocardiogram 05/2020. (4) Nonsustained ventricular tachycardia: No recurrence with resumption of beta-maximino therapy. Resume Toprol-XL. Replace electrolytes to maintain a serum potassium level greater than 4.0, and a serum magnesium level greater than 2.0. (5) CAD (coronary artery disease): Most recent cardiac catheterization performed 09/12/2019 due to elevated troponins and congestive heart failure. First diagonal branch occlusion visualized filling late via left to left collaterals, otherwise, no significant obstructive coronary disease. (6) Electrolyte and fluid disorder: Per nephrology. Normal electrolytes today per a.m. labs. (7) Paranoid delusion: Etiology of acute delirium unclear. Serum sodium currently normal. Vital signs remain stable with adequate oxygenation. I suspect there is an element of volume overload due to noncompliance with current chronic heart failure therapies including diuretic, however, I do not believe this is the cause of his acute delirium. No overt signs of infection with benign urinalysis, however, consider blood cultures if patient sedated/cooperative. Normal TSH, B12 noted. ABG demonstrates normal PCO2 without significant hypoxemia. Urine drug screen demonstrates undetectable opiates and ethanol. Further evaluation and treatment as per internal medicine and psychiatry. Admission and Anticipated Discharge Date Admission Date: October 05, 2020 Subjective Patient seen and examined the bedside. Sedated this morning. Telemetry reveals sinus rhythm and sinus tachycardia with heart rate averaging approximate 100 bpm. No recurrent ventricular tachycardia on telemetry. Electrolyte derangement improved. Patient unable to offer history. Review of Systems Review of Systems: Unobtainable due to cognitive status Physical Exam Constitutional: + obese, + disheveled and + combative; no acute distress Eyes: + abnormal pupil size (Constricted pupils bilaterally, although, reactive) Respiratory: no respiratory distress and no labored breathing Auscultation: no crackles, no rales, no rhonchi and no wheezes Cardiovascular: Rate/Rhythm: regular rate and regular rhythm Heart Sounds: normal S1, normal S2 and + murmur (3/6 mid to late peaking medium to high- pitched systolic ejection murmur.) Vessels: no JVD Extremities: no edema Gastrointestinal (Abdomen): Inspection/Auscultation: abdomen normal to inspection and normal bowel sounds; abdomen not distended Percussion/Palpation: abdomen nontender, no guarding and abdomen not rigid Neurologic: moves all extremities Motor/Sensory: no tremor Results & Data ([facility]) Vital Signs (Past 12 Hours) Vital Signs Temp Pulse Pulse Resp BP BP BP 10/07/20 11:22 36.8 C 87 12 153/85 H 10/07/20 10:57 91 H 147/77 H 10/07/20 07:45 37.3 C 108 H 18 132/72 10/07/20 03:52 37.0 C 94 H 20 129/76 10/07/20 03:41 94 H 129/76 Pulse Ox 10/07/20 11:22 100 10/07/20 10:57 10/07/20 07:45 94 10/07/20 03:52 10/07/20 03:41 (1) CAD (coronary artery disease) Associated angina: unspecified whether angina present Coronary Disease- Associated Artery/Lesion type: telida artery [place] vs. transplanted heart: telida heart Qualified Code(s): I25.10 - Atherosclerotic heart disease of telida coronary artery without angina pectoris (2) Aortic stenosis Cardiac valve disease etiology: nonrheumatic Qualified Code(s): I35.0 - Nonrheumatic aortic (valve) stenosis
--- NOTE | 2020-10-07 11:53 | Hospitalist Progress Note ---
Date of Service October 07, 2020 Assessment & Plan Admission and Anticipated Discharge Date Admission Date: October 05, 2020 Subjective Talked to granddaughter, Larisa Hyman, yesterday and updated her. At that time she mentioned that patient was falling the previous week, and then his mental status changed on Sunday, when he started to see people in his home. She is unaware of any dementia or any other mental status issues with the patient. She says that often he would remind her to do things. I just tried to update Larisa about patient's move to ICU for further close monitoring and treatment. I was only able to leave a message. Yoanna Melvin MD Results & Data Results & Data ([facility]) Vital Signs (Past 12 Hours) Vital Signs Temp Pulse Pulse Resp BP BP BP 10/07/20 11:22 36.8 C 87 12 153/85 H 10/07/20 10:57 91 H 147/77 H 10/07/20 07:45 37.3 C 108 H 18 132/72 10/07/20 03:52 37.0 C 94 H 20 129/76 10/07/20 03:41 94 H 129/76 Pulse Ox 10/07/20 11:22 100 10/07/20 10:57 10/07/20 07:45 94 10/07/20 03:52 10/07/20 03:41
--- NOTE | 2020-10-07 12:23 | Neurology Consultation ---
Date of Consultation October 07, 2020 Assessment & Plan (1) Altered mental status: 1. LP done under fluro - labs pending glucose normal 2. need repeat imaging of brain once respiratory and meningitis is r/o as source of AMS 3. miotic pupils concern for herniation however- gag intact 4. continue antibiotic and taper to cultures. 5. EEG - generalize slowing 6. further evaluation of dementia and ongoing hallucinations after acute illness is treated will continue to follow with you Present on Admission?: Yes (2) Acute hypoxemic respiratory failure: 1. currently on bipap due to 30% CO2 retention 2. CHF vs pneumonia vs meningitis Present on Admission?: Yes Supervising Physician Co-Signing Physician Notes I have seen and discussed above patient with Dr Jenae Bean, neurology. Pt seen and examines, please see my separate note. LAURA Bean MD History of Present Illness Reason for Consultation: AMS, hallucinations Requesting Physician: Diego Melvin MD Attending Physician: Diego Melvin MD History of Present Illness Eugene is a 79 year old male with PMH- chronic HFrEF, CAD, HTN, HLD, moderate aortic stenosis, DM2, COPD, tobacco abuse, RLS, LS as with neurogenic claudication, LOLA not on CPAP, depression with anxiety, GERD who presented to [facility] ED via 302 petition by police secondary to visual hallucinations x1 day on 10/05/2020. He had strong visual hallucinations while at home. There were multiple people in his house, "spraying webs," and also saw a "skinny, unsure of gender, person dressed in blue jeans and a red shirt," in his room. He had 2 loaded guns at bedside prior to going to bed because he was very frightened of the unknown individuals in house; he called police. Police were unable to find anybody in the home. He was brought to ED on 302 petition. He was thought to be medically stable but lab evaluation was found to have severe electrolyte derangements and therefore medical admission was warranted. He is current in ICU for respiratory depression. He had a LP under fluro and currently on 30 bipap. no ROS due to AMS Allergies Allergy/AdvReac Type Severity Reaction Status Date / Time cefaclor Allergy Intermediate swelling Verified 10/05/20 01:44 aspirin Allergy Mild bleeding Verified 10/05/20 01:44 ulcer (tolerates 81mg) Home Medications Medication Instructions Recorded Confirmed Type atorvastatin [Lipitor] 80 mg PO HS 05/01/19 10/05/20 History finasteride [Proscar] 5 mg PO QAM 05/01/19 10/05/20 History fluticasone propionate [Flonase 2 spray INTRANASAL DAILY 05/01/19 10/05/20 History Allergy Relief] loratadine [Claritin] 10 mg PO DAILY PRN 05/01/19 10/05/20 History multivitamin 1 tab PO QAM 05/01/19 10/05/20 History nitroglycerin [Nitrostat] 0.4 mg SUBLINGUAL UD PRN 05/01/19 10/05/20 History omeprazole 20 mg PO BID 05/01/19 10/05/20 History ropinirole 0.5 mg PO HS 05/01/19 10/05/20 History tamsulosin [Flomax] 0.4 mg PO HS 05/01/19 10/05/20 History trazodone 50 mg PO HS 05/01/19 10/05/20 History hydrocortisone [Proctosol HC] 1 applic VT QPM PRN 05/27/19 10/05/20 History oxycodone-acetaminophen [Percocet] 1 tab PO Q6H PRN 06/02/19 10/05/20 History acetaminophen [Tylenol Extra 1,000 mg PO Q8 PRN 09/12/19 10/05/20 History Strength] aspirin [Ecotrin Low Strength] 162 mg PO QAM 09/12/19 10/05/20 History metoprolol succinate [Toprol XL] 25 mg PO QAM 09/12/19 10/05/20 History furosemide 40 mg PO QAM #30 tab 09/16/19 10/05/20 Rx isosorbide mononitrate 60 mg PO QAM #30 tab 09/16/19 10/05/20 Rx Entresto 1 tab PO BID 06/19/20 10/05/20 History duloxetine 60 mg PO HS 06/19/20 10/05/20 History ipratropium-albuterol 3 ml INHALATION TID 06/19/20 10/05/20 History lidocaine 1 patch TOPICAL DAILY #15 ea 06/21/20 10/05/20 Rx magnesium oxide 400 mg PO BID #60 cap 06/21/20 10/05/20 Rx potassium chloride 10 meq PO BID #60 cap 06/21/20 10/05/20 Rx duloxetine 30 mg PO HS 10/05/20 10/05/20 History Patient History Medical History Anxiety BPH (benign prostatic hyperplasia) CAD (coronary artery disease) cath 09/15/19 demonstrated 100% occlusion D1 with collaterals, otherwise multivessel disease without severe stenosis COPD (chronic obstructive pulmonary disease) Depression GERD (gastroesophageal reflux disease) controlled Heart attack History of GI bleed + gastric ulcer [place] (hard of hearing) Hyperlipidemia Insomnia Irregular heartbeat Non-ST elevation [place] (NSTEMI) Obesity Osteoarthritis Peripheral vascular disease Poor historian Restless leg Sciatica Seasonal allergies Sleep apnea non compliant w/ cpap Smoking Spinal stenosis Stomach ulcer Valvular heart disease mild aortic stenosis per 09/2018 cardiac cath Surgical History History of cardiac cath 09/2018 - [facility] - - NO STENTS 2010 - [facility] - NO STENTS 2007 - BALLOON ANGIOPLASTY LAD PER MEDICAL RECORD 2000 - [facility] - NO STENTS History of cataract surgery History of cholecystectomy History of colonoscopy History of esophagogastroduodenoscopy (EGD) History of right knee surgery x 2 History of tonsillectomy and adenoidectomy Status post total right knee replacement Family History Mother Heart disease Leukemia Father Lung cancer Brother Cancer Other Allergies Hypertension Denies family history of No family history of adverse response to anesthesia Stroke Social History Smoking Status: Current every day smoker Cigarettes Per Day: 20; Second Hand Exposure: Yes; Tobacco Cessation Education Requested by Patient: Yes Hx Alcohol Use: No Hx Substance Use: No Preferred Language: Lao Communication Ability: Unable Occupational Health Professional Required: No Beliefs That Will Affect Care: None (raised [employer] ) marital status: / Current Living Situation: Alone Current Living Situation Comment: Lives in apartment Other Information That Helps Us Care for You: No Feels Safe at Home: Yes Safety Concerns: Feels Safe At This Time Assistive Devices: Walker Review of Systems Review of Systems: Unobtainable due to cognitive status Physical Exam Physical Exam: Physical Exam: Constitutional: appearance nourished, ill appearing Ears, Nose, Mouth and Throat: mucous membranes moist, no injection and skin normal, eyes normal Cardiovascular: RRR systolic murmer Respiratory: course breath sounds Musculoskeletal: no peripheral edema Skin: no stigmata of neurocutaneous disease noted and normal and intact Eyes: miotic pupils minimal reaction, decreased corneal response NEUROLOGIC EXAMINATION: Mental status: does not follow to open eyes Cranial Nerves minimal corneal R>L Reflexes: Deep tendon reflexes decreased and up going toes Sensory: deep stimulation minimal grimice Coordination: does not follow commands but does move spontaneously LE with suctioning, slight posturing on left UE Gait/Stance: lying in bed Motor: moves LE spontaneously Strength: unable to assess Results & Data ([facility]) Vital Signs (Past 12 Hours) Vital Signs Temp Pulse Pulse Resp BP BP BP 10/07/20 12:09 33 H 10/07/20 11:22 36.8 C 87 12 153/85 H 10/07/20 10:57 91 H 147/77 H 10/07/20 08:00 100 H 10/07/20 07:45 37.3 C 108 H 18 132/72 10/07/20 03:52 37.0 C 94 H 20 129/76 10/07/20 03:41 94 H 129/76 Pulse Ox Pulse Ox 10/07/20 12:09 98 10/07/20 11:22 100 10/07/20 10:57 10/07/20 08:00 95 10/07/20 07:45 94 10/07/20 03:52 10/07/20 03:41 Laboratory Results Abnormal lab results 10/06/20 10/07/20 10/07/20 Range/Units 17:38 06:50 06:50 WBC 11.48 H (4.8-10.8) K/uL RBC 4.13 L (4.7-6.1) M/uL Hgb 12.5 L (14.0-18.0) g/dL Hct 36.5 L (42-52) % RDW Std Deviation 49.7 H (36.4-46.3) fL RDW Coeff of Deborah 15.6 H (11.5-14.5) % ABG pCO2 33 L (35-46) mmHg ABG pO2 60 L (80-95) mmHg Chloride 111 H (98-107) mmol/L Glucose 125 H (70-99) mg/dl Calcium 7.7 L (8.5-10.1) mg/dl AST 57 H (15-37) U/L NT-Pro-B Natriuret Pep 23699 H (0-1800) pg/ml Diagnostic Findings CT chest- No acute traumatic findings within the chest.. Minimal groundglass opacity within the right middle lobe which may reflect an infectious process or atelectasis. Moderate cardiomegaly and coronary artery calcification.
--- NOTE | 2020-10-07 12:27 | XRay Report ---
SINGLE VIEW CHEST CLINICAL HISTORY: Hypoxia. Apneic episodes. FINDINGS: 2 AP, portable, upright chest radiographs are compared to study dated 10/06/2020 and correla mara with chest CT dated 06/19/2020. The heart is markedly enlarged noting atherosclerotic calcificati on of the thoracic aorta. There is pulmonary vascular congestion. There are bibasilar airspace opacit ies, left greater than right. No large pleural effusion or pneumothorax is seen. The skeletal structu res are osteopenic. The bony thorax is grossly intact. IMPRESSION: 1. Cardiomegaly with evidence of congestive failure. 2. Bibasilar airspace opacities likely represent scarring/atelectasis. Correlate clinically for evide nce of a superimposed infectious/inflammatory pneumonitis. ACT 112: Negative or not required by law. Electronically signed by: Ronal Can M.D. 10/07/2020 12:26 PM
[2020-10-07 12:30] LABS: iSTAT Arterial Blood Gas HCO3 25 meg/L (19-24); iSTAT Arterial Blood Gas pCO2 50 mmHg (35-46); iSTAT Arterial Blood Gas pH 7.31 (7.35-7.45); iSTAT Arterial Blood Gas pO2 164 mmHg (80-95); iSTAT Carbon Dioxide 26 mmol/L (24-31)
[2020-10-07 12:35] LABS: INR 1.1 (0.9-1.1); Prothrombin Time 10.9 Seconds (9.0-12.0)
[2020-10-07 12:40] LABS: Albumin Level 3.3 gm/dl (3.4-5.0); BUN Creatinine Ratio 15.1 (10-20); Calcium 7.5 mg/dl (8.5-10.1); Creatinine Clr Calc Pharmacy 79.8 ml/min; Est GFR (African American) 97.7; Est GFR (Non-African American) 84.3; Potassium 3.7 mmol/L (3.5-5.1)
[2020-10-07] MEDS: FUROSEMIDE 20 MG in SYRINGE 0 ML IV SCH (12:43)
[2020-10-07] MEDS: ACYCLOVIR SOD 650 MG in DEXTROSE 5% 100 ML IV SCH ×2 (12:43→19:54)
[2020-10-07 12:46] LABS: Albumin Globulin Ratio 0.9 (0.9-2); Bilirubin,Total 0.5 mg/dl (0.2-1); Globulin 3.7 gm/dl (2.5-4.0); Troponin I 1.39 ng/ml (0-0.045)
--- NOTE | 2020-10-07 13:08 | Critical Care Consultation ---
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 As such, he was transferred to the ICU for further medical monitoring. Neuro - Sedation: Precedex Analgesia: None at present - Patient responsive to painful/tactile stimuli, but is unable to follow commands since ~8-10AM, transferred to ICU around noon - Current mentation likely multifactorial- - Ativan 1mg this AM, acute hypercapnic respiratory failure. - Ammonia just mildly elevated. - CT-Head on arrival without acute process. No FNDs on exam - PT/INR/Plt grossly WNL, lower concern for acute CVA. - Lytes now normal, but noted that on arrival was hyponatremic, hypomagnesemic, hypocalcemic - Does not seem that home medications are likely contributing at present - However, in the setting of his ongoing work-up for agitated delirium/delu sions, also have to consider other etiologies, including infectious. - Proceed with LP and characterization studies to evaluate for CSF infection. Attempted in ICU, will consult radiology for guided LP. Await opening pressure, r/o NPH. - BCX ordered. - Continue antibiotics. Begin acyclovir. - Continue Precedex. Monitor airway. - Continue Depakote per Neurology for agitated delirium metformin - Await further recommendations from Psych, Neurology. Per psych: Cardiac - - Currently hemodynamically stable. - Patient has known h/o CAD, HFrEF, moderate . Upon arrival to ICU, troponin at 1.390; ECG without acute changes in conduction or repolarization. 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 Will trend. Continue CCM. - BNP elevated to >60728, last echo in 06/13 demonstrating EF 40-45%. Net positive ~1L since admission with CXR demonstrating mild vascular congestion in setting of his medications. Continue Lasix. Monitor renal function. - QTc 500 - avoid prolonging agents including antipsychotics if possible - Continue ASA, statin, Imdur, Toprol, Entresto - Cardiology, nephrology following. Respiratory - - Sudden deterioration today with intermittent periods of apnea, hypoxia on oximetry in PCU following Ativan receipt several hours prior - In setting of pulmonary vascular congestion on CXR, suspect this acute hypoxemic, hypercapnic respiratory failure (revealed by ABG) is likely 2/2 oversedation and component of pulmonary edema - Continue work-up above - Continue BiPAP for now, wean as appropriate - Lasix therapy as above GI - - Review of chart revealing of 2-week history of diarrhea prior to admission - No BMs while here yet - Await stool studies once available - Certainly can consider adding bowel regimen should no natural BM occur soon - NPO for now RENAL/LYTES - - Serum and urine osmolality, alongside random urine sodium, collected early in hospital course were suggestive of possible dilutional polydipsia -- in setting of PPI use, too, may explain early electrolyte derangements - No electrolyte disturbances at present - Nephrology, cardiology following - Cr, BUN stable right now - monitor in setting of diuresis - Replace lytes as needed - - Cuenca catheter, strict I+Os ENDO - - Known history of T2DM. Hold home medications. ICU Hyperglycemia protocol. HEME - - Stable H&H, INR, PTT - Continue to monitor on daily labs ID - - Unclear whether or not infectious component into patient's current AMS and presenting agitated delirium and hallucinations - No significant leukocytosis, fever, procalc while here -- however, patient's age is taken into consideration - As above in Neuro -- continue ID work-up with further CSF characterization/cultures/Igs - BCX ordered - await results (not taken at admission; these cultures will be s/p ABX initiation) - Monitor for fevers - Continue amp, cftx, vanc for now - Add acyclovir for possible HSV encephalitis until ruled-out INTEGUMENTARY - - No major concerns at present LINES/IV ACCESS - PIVs intact. DVT PROPHYLAXIS - - SCDs - Hold anticoagulation in setting of LP, can consider starting tomorrow. Thank you for allowing us to be part of this patient's care. Please refer to Dr. Arias's documentation for any further recommendations. (2) Elevated brain natriuretic peptide (BNP) level: (3) Altered mental status: (4) LBBB (left bundle branch block): (5) Electrolyte and fluid disorder: (6) DVT prophylaxis: (7) Hyponatremia: (8) Hypocalcemia: (9) Paranoid delusion: (10) Hypokalemia: (11) Visual hallucination: (12) Smoking: (13) COPD (chronic obstructive pulmonary disease): (14) Chronic systolic (congestive) heart failure: (15) Chest pain: (16) Elevated troponin: (17) Hypoxia: (18) Chronic nonallergic rhinitis: (19) Sleep apnea: (20) Peripheral vascular disease: (21) Aortic stenosis: (22) CAD (coronary artery disease): Supervising Physician Co-Signing Physician Notes Dr. Avilez was the resident-physician during care of patient. I separately evaluated patient for ernandez portions of the history and the exam. I was present during the critical portion of medical decision making, and I discussed the case with the resident. I generally agree with the findings and plan except for any additions/exceptions noted. 79-year-old male with acute psychosis and delirium of unclear etiology. He likely has underlying dementia. Neurology consultation is pending. Lumbar puncture was attempted at bedside, but failed. Successful lumbar puncture was performed by interventional radiology with the guidance of fluoroscopy. Bio fire testing is pending. 0 WBCs were seen. Likely not bacterial meningitis. Currently on meningitis doses of vancomycin, ceftriaxone, ampicillin and acyclovir. Will discontinue with bio fire testing is negative. He has acute mild CHF exacerbation which we will treat with low-dose diuretics and BiPAP therapy as needed. He is currently heavily sedated from the Ativan he received on the floor. We will continue to use as needed Precedex if he continues to be severely agitated. Psychiatry is following the patient as well. Thus far work- up for his agitated delirium has been largely negative. No obvious infectious etiology has been found. CK is mildly elevated likely due to agitation. Does not have evidence of fever or rigidity. No hyperreflexia. Unlikely to be serotonin syndrome or neuroleptic malignant syndrome. He will likely need an MRI of the brain when he is more calm. I updated the patient's granddaughter and son over the phone. I have personally spent 56 minutes of critical care time in the direct management of this patient. This is a life/limb threatening event. This includes time spent evaluating patient, direct bedside care, chart review, placing orders, interpretation of diagnostic studies, discussion with cons ultants, patient, and/or family members regarding treatment decisions, as well as other required patient management activities. This time is exclusive of all separately billable procedures, and teaching time and separate from and in addition to any other critical care service time. 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 Patient was transferred down to the ICU from PCU for decreased responsiveness, periods of apnea, and hypoxia. As the patient is unable to respond to questions on his arrival to the ICU, the entirety of his history is obtained from notes entered to the system, as well as communication with the hospitalist. Aside from depression and anxiety, patient has no significant psychiatric history or known history of dementia. He is on Cymbalta for back pain. He was noted to have diarrhea for approximately 2 weeks prior to his presentation, but without other symptoms related to GI distress. Review of his notes does reveal that it seems that his visual hallucinations primarily began this week, but in the week prior, he may have been falling more. Over the preceding few weeks, history is noted that he has been falling out of bed due to excessive movements in sleep. He is also noted to have started a PPI earlier this month. Upon his arrival, patient was noted to be hemodynamically stable, but have metabolic abnormalities, including hyponatremia to 130, hypomagnesemia to 0.9, hypocalcemia to 6.8, and mild hypoalbuminemia to 3.8. Low serum osmolality at 271, and low urine osmolality at 127. TFTs normal. Urine drug screen negative, urinalysis bland - although he is noted to use Percocet several times a day (prescribed) for pain. CT of the head without acute process. Chest x-ray demonstrated interstitial thickening, likely representing pulmonary vascular congestion and mild edema. Throughout his course, he has been followed by multiple specialists, including n ephrology, psychiatry, cardiology, and now neurology. He underwent electrolyte repletion, which are now normalized on labs. Nephrology had noted that his osmolalities could possibly be explained by polydipsia; also noted that diarrhea and PPI use could account for some of the electrolyte arrangements as well. Throughout his hospital course here, he has been noted to be in agitated delirium on several occasions. He was started on Depakote. Because of agitation this AM, he was given Ativan 1mg x 1. Subsequently thereafter, he did develop severe depression in awareness/responsiveness, and was also noted to be hypoxic and apneic on several occasions. As such, computer operations supervisor was consulted for further management here. He was started on BiPAP. He was hemodynamically stable on transport. He is still unable to answer questions, but does respond to painful stimuli. Allergies Allergy/AdvReac Type Severity Reaction Status Date / Time cefaclor Allergy Intermediate swelling Verified 10/05/20 01:44 aspirin Allergy Mild bleeding Verified 10/05/20 01:44 ulcer (tolerates 81mg) Home Medications Medication Instructions Recorded Confirmed Type atorvastatin [Lipitor] 80 mg PO HS 05/01/19 10/05/20 History finasteride [Proscar] 5 mg PO QAM 05/01/19 10/05/20 History fluticasone propionate [Flonase 2 spray INTRANASAL DAILY 05/01/19 10/05/20 History Allergy Relief] loratadine [Claritin] 10 mg PO DAILY PRN 05/01/19 10/05/20 History multivitamin 1 tab PO QAM 05/01/19 10/05/20 History nitroglycerin [Nitrostat] 0.4 mg SUBLINGUAL UD PRN 05/01/19 10/05/20 History omeprazole 20 mg PO BID 05/01/19 10/05/20 History ropinirole 0.5 mg PO HS 05/01/19 10/05/20 History tamsulosin [Flomax] 0.4 mg PO HS 05/01/19 10/05/20 History trazodone 50 mg PO HS 05/01/19 10/05/20 History hydrocortisone [Proctosol HC] 1 applic [place] QPM PRN 05/27/19 10/05/20 History oxycodone-acetaminophen [Percocet] 1 tab PO Q6H PRN 06/02/19 10/05/20 History acetaminophen [Tylenol Extra 1,000 mg PO Q8 PRN 09/12/19 10/05/20 History Strength] aspirin [Ecotrin Low Strength] 162 mg PO QAM 09/12/19 10/05/20 History metoprolol succinate [Toprol XL] 25 mg PO QAM 09/12/19 10/05/20 History furosemide 40 mg PO QAM #30 tab 09/16/19 10/05/20 Rx isosorbide mononitrate 60 mg PO QAM #30 tab 09/16/19 10/05/20 Rx Entresto 1 tab PO BID 06/19/20 10/05/20 History duloxetine 60 mg PO HS 06/19/20 10/05/20 History ipratropium-albuterol 3 ml INHALATION TID 06/19/20 10/05/20 History lidocaine 1 patch TOPICAL DAILY #15 ea 06/21/20 10/05/20 Rx magnesium oxide 400 mg PO BID #60 cap 06/21/20 10/05/20 Rx potassium chloride 10 meq PO BID #60 cap 06/21/20 10/05/20 Rx duloxetine 30 mg PO HS 10/05/20 10/05/20 History Patient History Medical History Anxiety BPH (benign prostatic hyperplasia) CAD (coronary artery disease) cath 09/15/19 demonstrated 100% occlusion D1 with collaterals, otherwise multivessel disease without severe stenosis COPD (chronic obstructive pulmonary disease) Depression GERD (gastroesophageal reflux disease) controlled Heart attack History of GI bleed + gastric ulcer [place] (hard of hearing) Hyperlipidemia Insomnia Irregular heartbeat Non-ST elevation NE (NSTEMI) Obesity Osteoarthritis Peripheral vascular disease Poor historian Restless leg Sciatica Seasonal allergies Sleep apnea non compliant w/ cpap Smoking Spinal stenosis Stomach ulcer Valvular heart disease mild aortic stenosis per 09/2018 cardiac cath Surgical History History of cardiac cath 09/2018 - [facility] - CP - NO STENTS 2010 - [facility] - NO STENTS 2007 - B[facility]OON ANGIOPLASTY LAD PER MEDICAL RECORD 2000 - [facility] - NO STENTS History of cataract surgery History of cholecystectomy History of colonoscopy History of esophagogastroduodenoscopy (EGD) History of right knee surgery x 2 History of tonsillectomy and adenoidectomy Status post total right knee replacement Family History Mother Heart disease Leukemia Father Lung cancer Brother Cancer Other Allergies Hypertension Denies family history of No family history of adverse response to anesthesia Stroke Social History Smoking Status: Current every day smoker Cigarettes Per Day: 20; Second Hand Exposure: Yes; Tobacco Cessation Education Requested by Patient: Yes Hx Alcohol Use: No Hx Substance Use: No Preferred Language: Citizen Of [place] Communication Ability: Unable Lead Tinner Required: No Beliefs That Will Affect Care: None (raised Evangelical ) marital status: / Current Living Situation: Alone Current Living Situation Comment: Lives in apartment Other Information That Helps Us Care for You: No Feels Safe at Home: Yes Safety Concerns: Feels Safe At This Time Assistive Devices: Walker Review of Systems Review of Systems: as per HPI Physical Exam Physical Exam: General: Ill and somnolent 79-year-old male who is responsive to painful stimuli and intermittently moans. He is in no acute distress. HEENT: Mucous membranes do appear moist. Pupils are approximately 2 mm and equal. Sluggishly reactive to light. Corneal reflex present. Neck veins appear flat. No appreciable JVD is noted. Cardiac: Normal rate, regular rhythm. S1 and S2 are present. There is a grade 2 out of 6 systolic ejection murmur best heard up at the right upper sternal border that does radiate to the left. Respiratory: Mild respiratory effort with equal expansion of the chest. No use of accessory muscles. Upper airway sounds do resonated into the lung shukla. Murmur makes it difficult to auscultate clearly. Of what could be heard, intermittent expiratory rhonchi, globally diminished breath sounds. Abdominal: Normoactive bowel sounds. Abdomen is soft, nondistended does not elicit facial grimace to palpation. Extremities: Radial pulses and dorsalis pedis pulses 2+ bilaterally. No peripheral edema in the lower extremities bilaterally. Neurologic: Cranial nerve II exam, as above. Flaccid tone with rotation in upper and lower extremities. 1+ patellar reflexes bilaterally. No clonus. Results & Data Results & Data ([facility]) Vital Signs (Past 12 Hours) Vital Signs Temp Pulse Pulse Resp BP BP BP 10/07/20 12:09 33 H 10/07/20 11:22 36.8 C 87 12 153/85 H 10/07/20 10:57 91 H 147/77 H 10/07/20 08:00 100 H 10/07/20 07:45 37.3 C 108 H 18 132/72 10/07/20 03:52 37.0 C 94 H 20 129/76 10/07/20 03:41 94 H 129/76 Pulse Ox Pulse Ox 10/07/20 12:09 98 10/07/20 11:22 100 10/07/20 10:57 10/07/20 08:00 95 10/07/20 07:45 94 10/07/20 03:52 10/07/20 03:41 (1) CAD (coronary artery disease) Associated angina: unspecified whether angina present Coronary Disease- Associated Artery/Lesion type: [place] artery [place] vs. transplanted heart: [place] heart Qualified Code(s): I25.10 - Atherosclerotic heart disease of [place] coronary artery without angina pectoris (2) Aortic stenosis Cardiac valve disease etiology: nonrheumatic Qualified Code(s): I35.0 - Nonrheumatic aortic (valve) stenosis (3) Chest pain Chest pain type: unspecified Qualified Code(s): R07.9 - Chest pain, unspecified
[2020-10-07] MEDS ORDERED: STAT IV Infusion **Titration per Protocol STA (13:12)
[2020-10-07] MEDS: DEXMEDETOMIDINE HCL 200 MCG in SODIUM CHLORIDE 0.9% 48 ML IV SCH ×2 (13:24→18:31)
[2020-10-07] MEDS ORDERED: LIDOCAINE HCL 1% 20 ML VIAL ONE (13:49)
--- NOTE | 2020-10-07 14:24 | Procedure Note ---
Procedure Note Date of Service October 07, 2020 Note A time-out was performed. My hands were washed immediately prior to the procedure. Surgical cap and gloves were worn during the procedure. The patient was placed in the right lateral decubitus position with help from the nursing staff. The area was cleansed and draped in usual sterile fashion using a chlorhexidine scrub. Anesthesia was achieved with 1% lidocaine. A 20-gauge 3.5- inch spinal needle was placed in the L4 interspace. I was unable to successfully introduce the needle into the appropriate space. No fluid was obtained. The procedure was aborted. The patient had no immediate complications and tolerated the procedure well. Estimated blood loss was 3 ml. Coding CPT Codes Neurology - Neurology: 46061 Lumbar Puncture, diagnostic ([id number]) [facility] [place] Procedure Codes (Charges) Neurology Neurology: 43439 Lumbar Puncture, diagnostic
[2020-10-07] MEDS ORDERED: VANCOMYCIN HCL 1,500 MG in SODIUM CHLORIDE 0.9% 500 ML IV SCH (16:00)
--- NOTE | 2020-10-07 16:43 | Hospitalist Progress Note ---
Date of Service October 07, 2020 Assessment & Plan (1) Visual hallucination: (2) Paranoid delusion: This is a 79-year-old male who has significant past medical history of chronic HFrEF, CAD, HTN, HLD, moderate aortic stenosis, T2DM, COPD, long-term tobacco abuse, RLS, LS as with neurogenic claudication, LOLA not on CPAP, depression with anxiety, GERD who presents to ED via 302 petition by police secondary to visual hallucinations x1 day. Patient is alert and oriented x3 but with strong visual hallucinations that occurred yesterday while at home. Patient felt he saw multiple people in his house, "spraying webs," and also saw a "skinny, unsure of gender, person dressed in blue jeans and a red shirt," in his room. He had 2 loaded guns at bedside prior to going to bed. He denied any suicidal or homicidal ideations but was very frightened of the unknown individuals in house; therefore he called police. Police were unable to find anybody in the home. He was brought to ED on 302 petition. Initially felt to be medically stable but upon further lab evaluation was found to have severe electrolyte derangements and therefore medical admission was warranted. No prior history of psychiatric illness. Does have diagnosis depression with anxiety on epic. 1:1 prn consulted psychiatry correct electrolyte abnormalities, ? playing a role checked vit [id number] 721 (wnl), RPR- negative, TSH - wnl CT head negative hold narcotics, pt denies elicit drug use, drug tox screen negative no s/sx of infection consider neuro eval if sx persist AM 10/06/20 AM, patient agitated, julianne christine was called, patient was placed in restraints, given Zyprexa. Continues to be agitated however/possibly somewhat confused, mumbling. Psychiatry consulted again, Given prolonged QTC, worried about Zyprexa. Per psychiatry, started on 500 IV Depakote/valproic acid, TID and ativan. 10/07 overnight continues to be agitated, required Zyprexa again. document coordinator received Ativan, then became calm. However some hours later developed frequent apnea and desaturated to 70s percent. He was started on BiPAP and ICU was contacted. Patient was transferred to ICU for further care and treatment. Currently sedated on Precedex drip , plan for LP. Diarrhea pt reports diarrhea x 2 weeks, no other abd sx or signs of infection check stool culture, stool for cdiff likely culprit of hypomag ? new LBBB Per EKG on admission, patient has new LBBB Per admitting provider, EKG was discussed prior to official read, and felt as it was not new LBBB Consulted cardiology for official recommendations (3) Hypomagnesemia: mag, 0.9 Replace and monitor (4) Hypocalcemia: Calcium 6.8, may be in setting of low mag Obtain vitamin D and PTH levels Received 1 g calcium gluconate in ED Replace and monitor (5) Hyponatremia: Sodium 130 Hold Lasix, although he did receive dose today Serum osm 271, urine osm 127 (low) and urine sodium 30 Received 1 L of IVF in ED Repeat BMP at 1500 Denies any excessive thirst or drinking Repeat sodium improved, also further discussed with nephrology Per nephrology, also obtained CXR for further eval (6) CAD (coronary artery disease): (7) CHF (congestive heart failure): (8) Aortic stenosis: Chronic HFrEF Last echo 05/2020-EF 40 to 45%, left ventricular hypokinesis, moderate aortic valve stenosis, mild AR Continue ASA, statin, Imdur, Entresto, metoprolol Hold Lasix for now in setting of hyponatremia Daily weights, strict I's and O's Heart healthy diet (9) COPD (chronic obstructive pulmonary disease): No acute exacerbation Continue nebs (10) Smoking: Tobacco abuse will nicotine supplementation as patient has prior history of hallucinations with Chantix (11) BPH (benign prostatic hyperplasia): Continue finasteride and Flomax (12) DVT prophylaxis: Lovenox Dispo: Currently in ICU, consult case management given 302 petition and possible placement needed Full code PCP: Dr. Junaid Gibbons Admission and Anticipated Discharge Date Admission Date: October 05, 2020 Subjective Patient seen in a follow-up of altered mental status Overnight patient was still agitated, required Zyprexa. Continued to be in PCU, in restraints. Early this morning, received Ativan for agitation, then some hours later however developed frequent apneic episodes and desaturated to 70s%. Pt was placed on BiPAP and was transferred to ICU for further close monitoring and treatment. In the meantime neurology was contacted fo further evaluation of AMS. Review of Systems Review of Systems: Unobtainable due to cognitive status Physical Exam Constitutional: WD/WN, vitals as above Eyes: PERRL, conjunctivae normal, anicteric sclerae ENMT: external ear and nose normal, oropharynx normal Neck: normal visual inspection Respiratory: + respiratory distress and + labored breathing pt on BiPAP Cardiovascular: Rate/Rhythm: regular rate Heart Sounds: + murmur (systolic) Chest (Breasts): Chest: normal inspection of chest Gastrointestinal (Abdomen): Inspection/Auscultation: abdomen normal to inspection Percussion/Palpation: abdomen soft; no guarding and abdomen not rigid + bowel sounds Musculoskeletal: Head/Neck/Chest: normocephalic and head atraumatic Skin: + dry skin Neurologic: moves all extremities, + confused and + obtunded (after receiving ativan) Psychiatric: pt confused and sedated (after given ativan) Lymphatic: no lymphedema Results & Data Results & Data ([facility]) Vital Signs (Past 12 Hours) Vital Signs Temp Pulse Pulse Resp BP BP Pulse Ox 10/07/20 14:51 36.5 C 82 17 111/60 100 10/07/20 14:20 36.7 C 82 15 88 L 10/07/20 14:15 36.7 C 103/62 100 10/07/20 14:12 36.7 C 83 19 99/49 L 10/07/20 14:10 36.6 C 87 17 71 L 10/07/20 14:00 36.6 C 89 18 94 10/07/20 13:52 36.5 C 85 17 115/73 92 10/07/20 13:50 36.5 C 88 18 97 10/07/20 13:40 36.5 C 88 21 97 10/07/20 13:30 36.5 C 86 20 95 10/07/20 13:20 36.5 C 83 13 94 10/07/20 13:10 36.6 C 85 28 H 94 10/07/20 13:00 36.6 C 91 H 12 98 10/07/20 12:59 96 H 30 H 10/07/20 12:51 36.6 C 84 17 136/66 93 10/07/20 12:50 36.6 C 83 17 93 10/07/20 12:40 36.6 C 78 19 95 10/07/20 12:30 36.6 C 80 18 94 10/07/20 12:20 36.7 C 80 15 96 10/07/20 12:10 36.5 C 78 16 98 10/07/20 12:09 33 H 98 10/07/20 12:00 36.0 C L 82 11 L 99 10/07/20 11:51 77 17 137/70 98 10/07/20 11:50 87 19 10/07/20 11:22 36.8 C 87 12 153/85 H 100 10/07/20 10:57 91 H 147/77 H 10/07/20 08:00 100 H 10/07/20 07:45 37.3 C 108 H 18 132/72 94 Pulse Ox 10/07/20 14:51 10/07/20 14:20 10/07/20 14:15 10/07/20 14:12 10/07/20 14:10 10/07/20 14:00 10/07/20 13:52 10/07/20 13:50 10/07/20 13:40 10/07/20 13:30 10/07/20 13:20 10/07/20 13:10 10/07/20 13:00 10/07/20 12:59 10/07/20 12:51 10/07/20 12:50 10/07/20 12:40 10/07/20 12:30 10/07/20 12:20 10/07/20 12:10 10/07/20 12:09 10/07/20 12:00 10/07/20 11:51 10/07/20 11:50 10/07/20 11:22 10/07/20 10:57 10/07/20 08:00 95 10/07/20 07:45 Laboratory Results 10/07/20 10/07/20 10/07/20 Range/Units 16:08 16:08 16:08 WBC (4.8-10.8) K/uL RBC (4.7-6.1) M/uL Hgb (14.0-18.0) g/dL Hct (42-52) % MCV (80-100) fL MCH (25-34) pg MCHC (32-36) g/dL RDW Std Deviation (36.4-46.3) fL RDW Coeff of Deborah (11.5-14.5) % Plt Count (130-400) K/uL MPV (7.4-10.4) fL PT (9.0-12.0) Seconds INR (0.9-1.1) APTT (21.0-31.0) Seconds PTT Ratio POC pH (7.35-7.45) POC pCO2 (35-46) mmHg POC pO2 (80-95) mmHg POC HCO3 (19-24) tj/L POC Total CO2 (24-31) mmol/L POC Base Excess (-9-1.8) tj/L ABG pH (7.35-7.45) ABG pCO2 (35-46) mmHg ABG pO2 (80-95) mmHg ABG HCO3 (19-24) mmol/L POC ABG O2 Sat (90-95) % ABG O2 Saturation (90-95) % ABG Base Excess (-9-1.8) mEq/L Suhail Test (Pos) Barometric Pressure mm/Hg Oxygen Given Sodium (136-145) mmol/L Potassium (3.5-5.1) mmol/L Chloride (98-107) mmol/L Carbon Dioxide (21-32) mmol/L Anion Gap (3-11) BUN (7-18) mg/dl Creatinine (0.6-1.4) mg/dl Est Cr Clr Drug Dosing ml/min Est GFR ( Amer) Est GFR (Non-Af Amer) BUN/Creatinine Ratio (10-20) Glucose (70-99) mg/dl Calcium (8.5-10.1) mg/dl Phosphorus (2.5-4.9) mg/dl Magnesium (1.8-2.4) mg/dl Total Bilirubin (0.2-1) mg/dl AST (15-37) U/L ALT (12-78) U/L Alkaline Phosphatase (45-117) U/L Ammonia (11-32) umol/L Total Creatine Kinase (39-308) U/L Troponin I (0-0.045) ng/ml NT-Pro-B Natriuret Pep (0-1800) pg/ml Total Protein (6.4-8.2) gm/dl Albumin (3.4-5.0) gm/dl Globulin (2.5-4.0) gm/dl Albumin/Globulin Ratio (0.9-2) Procalcitonin (0-0.5) ng/ml Fld Lyme DNA (PCR) Pending Fluid Comment CSF Appearance Bloody CSF Color Red Xanthrochromic No xanthochromia CSF WBC 0 (0-5) /uL CSF RBC 7650 (0-) /uL CSF Cell Count Tube # 3 CSF Chemistry Tube # Pending CSF Glucose 75 H (40-70) mg/dl CSF Lactate 2.9 H (0.6-2.2) mmol/L CSF Total Protein CSF Lyme IgG (Immblot) CSF Lyme IgG Bands Det CSF Lyme IgM (Immblot) CSF Lyme IgM Bands Det CSF C.neoform/gat PCR Pending CSF CMV DNA (PCR) Pending CSF Enterovirus (PCR) Pending CSF E. coli K1 (PCR) Pending CSF H. influenzae (PCR) Pending CSF HSV I (PCR) Pending CSF HSV II (PCR) Pending CSF HHV 6 (PCR) Pending CSF L.monocytogenes PCR Pending CSF N. meningitidis PCR Pending CSF Parechovirus (PCR) Pending CSF S. agalactiae (PCR) Pending CSF S. pneumoniae (PCR) Pending CSF VZV DNA (PCR) Pending Nasal Screen MRSA (PCR) (Negative) Valproic Acid (50-100) mcg/ml RPR (Nonreactive) Lyme Specimen Source Pending 10/07/20 10/07/20 10/07/20 Range/Units 16:08 16:08 12:14 WBC (4.8-10.8) K/uL RBC (4.7-6.1) M/uL Hgb (14.0-18.0) g/dL Hct (42-52) % MCV (80-100) fL MCH (25-34) pg MCHC (32-36) g/dL RDW Std Deviation (36.4-46.3) fL RDW Coeff of Deborah (11.5-14.5) % Plt Count (130-400) K/uL MPV (7.4-10.4) fL PT (9.0-12.0) Seconds INR (0.9-1.1) APTT (21.0-31.0) Seconds PTT Ratio POC pH 7.31 L (7.35-7.45) POC pCO2 50 H (35-46) mmHg POC pO2 164 H (80-95) mmHg POC HCO3 25 H (19-24) tj/L POC Total CO2 26 (24-31) mmol/L POC Base Excess -1.0 (-9-1.8) tj/L ABG pH (7.35-7.45) ABG pCO2 (35-46) mmHg ABG pO2 (80-95) mmHg ABG HCO3 (19-24) mmol/L POC ABG O2 Sat 99.0 H (90-95) % ABG O2 Saturation (90-95) % ABG Base Excess (-9-1.8) mEq/L Suhail Test (Pos) Barometric Pressure mm/Hg Oxygen Given Sodium (136-145) mmol/L Potassium (3.5-5.1) mmol/L Chloride (98-107) mmol/L Carbon Dioxide (21-32) mmol/L Anion Gap (3-11) BUN (7-18) mg/dl Creatinine (0.6-1.4) mg/dl Est Cr Clr Drug Dosing ml/min Est GFR ( Amer) Est GFR (Non-Af Amer) BUN/Creatinine Ratio (10-20) Glucose (70-99) mg/dl Calcium (8.5-10.1) mg/dl Phosphorus (2.5-4.9) mg/dl Magnesium (1.8-2.4) mg/dl Total Bilirubin (0.2-1) mg/dl AST (15-37) U/L ALT (12-78) U/L Alkaline Phosphatase (45-117) U/L Ammonia (11-32) umol/L Total Creatine Kinase (39-308) U/L Troponin I (0-0.045) ng/ml NT-Pro-B Natriuret Pep (0-1800) pg/ml Total Protein (6.4-8.2) gm/dl Albumin (3.4-5.0) gm/dl Globulin (2.5-4.0) gm/dl Albumin/Globulin Ratio (0.9-2) Procalcitonin (0-0.5) ng/ml Fld Lyme DNA (PCR) Fluid Comment CSF Appearance CSF Color Xanthrochromic CSF WBC (0-5) /uL CSF RBC (0-) /uL CSF Cell Count Tube # CSF Chemistry Tube # CSF Glucose (40-70) mg/dl CSF Lactate (0.6-2.2) mmol/L CSF Total Protein Pending CSF Lyme IgG (Immblot) Pending CSF Lyme IgG Bands Det Pending CSF Lyme IgM (Immblot) Pending CSF Lyme IgM Bands Det Pending CSF C.neoform/gat PCR CSF CMV DNA (PCR) CSF Enterovirus (PCR) CSF E. coli K1 (PCR) CSF H. influenzae (PCR) CSF HSV I (PCR) CSF HSV II (PCR) CSF HHV 6 (PCR) CSF L.monocytogenes PCR CSF N. meningitidis PCR CSF Parechovirus (PCR) CSF S. agalactiae (PCR) CSF S. pneumoniae (PCR) CSF VZV DNA (PCR) Nasal Screen MRSA (PCR) (Negative) Valproic Acid (50-100) mcg/ml RPR (Nonreactive) Lyme Specimen Source 10/07/20 10/07/20 10/07/20 Range/Units 12:11 12:11 12:11 WBC (4.8-10.8) K/uL RBC (4.7-6.1) M/uL Hgb (14.0-18.0) g/dL Hct (42-52) % MCV (80-100) fL MCH (25-34) pg MCHC (32-36) g/dL RDW Std Deviation (36.4-46.3) fL RDW Coeff of Deborah (11.5-14.5) % Plt Count (130-400) K/uL MPV (7.4-10.4) fL PT 10.9 (9.0-12.0) Seconds INR 1.1 (0.9-1.1) APTT 25.0 (21.0-31.0) Seconds PTT Ratio 1.0 POC pH (7.35-7.45) POC pCO2 (35-46) mmHg POC pO2 (80-95) mmHg POC HCO3 (19-24) tj/L POC Total CO2 (24-31) mmol/L POC Base Excess (-9-1.8) tj/L ABG pH (7.35-7.45) ABG pCO2 (35-46) mmHg ABG pO2 (80-95) mmHg ABG HCO3 (19-24) mmol/L POC ABG O2 Sat (90-95) % ABG O2 Saturation (90-95) % ABG Base Excess (-9-1.8) mEq/L Suhail Test (Pos) Barometric Pressure mm/Hg Oxygen Given Sodium (136-145) mmol/L Potassium (3.5-5.1) mmol/L Chloride (98-107) mmol/L Carbon Dioxide (21-32) mmol/L Anion Gap (3-11) BUN (7-18) mg/dl Creatinine (0.6-1.4) mg/dl Est Cr Clr Drug Dosing ml/min Est GFR ( Amer) Est GFR (Non-Af Amer) BUN/Creatinine Ratio (10-20) Glucose (70-99) mg/dl Calcium (8.5-10.1) mg/dl Phosphorus (2.5-4.9) mg/dl Magnesium (1.8-2.4) mg/dl Total Bilirubin (0.2-1) mg/dl AST (15-37) U/L ALT (12-78) U/L Alkaline Phosphatase (45-117) U/L Ammonia 35.7 H (11-32) umol/L Total Creatine Kinase (39-308) U/L Troponin I (0-0.045) ng/ml NT-Pro-B Natriuret Pep (0-1800) pg/ml Total Protein (6.4-8.2) gm/dl Albumin (3.4-5.0) gm/dl Globulin (2.5-4.0) gm/dl Albumin/Globulin Ratio (0.9-2) Procalcitonin (0-0.5) ng/ml Fld Lyme DNA (PCR) Fluid Comment CSF Appearance CSF Color Xanthrochromic CSF WBC (0-5) /uL CSF RBC (0-) /uL CSF Cell Count Tube # CSF Chemistry Tube # CSF Glucose (40-70) mg/dl CSF Lactate (0.6-2.2) mmol/L CSF Total Protein CSF Lyme IgG (Immblot) CSF Lyme IgG Bands Det CSF Lyme IgM (Immblot) CSF Lyme IgM Bands Det CSF C.neoform/gat PCR CSF CMV DNA (PCR) CSF Enterovirus (PCR) CSF E. coli K1 (PCR) CSF H. influenzae (PCR) CSF HSV I (PCR) CSF HSV II (PCR) CSF HHV 6 (PCR) CSF L.monocytogenes PCR CSF N. meningitidis PCR CSF Parechovirus (PCR) CSF S. agalactiae (PCR) CSF S. pneumoniae (PCR) CSF VZV DNA (PCR) Nasal Screen MRSA (PCR) (Negative) Valproic Acid 34 L (50-100) mcg/ml RPR (Nonreactive) Lyme Specimen Source 10/07/20 10/07/20 10/07/20 Range/Units 12:11 11:55 06:50 WBC (4.8-10.8) K/uL RBC (4.7-6.1) M/uL Hgb (14.0-18.0) g/dL Hct (42-52) % MCV (80-100) fL MCH (25-34) pg MCHC (32-36) g/dL RDW Std Deviation (36.4-46.3) fL RDW Coeff of Deborah (11.5-14.5) % Plt Count (130-400) K/uL MPV (7.4-10.4) fL PT (9.0-12.0) Seconds INR (0.9-1.1) APTT (21.0-31.0) Seconds PTT Ratio POC pH (7.35-7.45) POC pCO2 (35-46) mmHg POC pO2 (80-95) mmHg POC HCO3 (19-24) tj/L POC Total CO2 (24-31) mmol/L POC Base Excess (-9-1.8) tj/L ABG pH (7.35-7.45) ABG pCO2 (35-46) mmHg ABG pO2 (80-95) mmHg ABG HCO3 (19-24) mmol/L POC ABG O2 Sat (90-95) % ABG O2 Saturation (90-95) % ABG Base Excess (-9-1.8) mEq/L Suhail Test (Pos) Barometric Pressure mm/Hg Oxygen Given Sodium 140 (136-145) mmol/L Potassium 3.7 (3.5-5.1) mmol/L Chloride 110 H (98-107) mmol/L Carbon Dioxide 23 (21-32) mmol/L Anion Gap 7.0 (3-11) BUN 13 (7-18) mg/dl Creatinine 0.83 (0.6-1.4) mg/dl Est Cr Clr Drug Dosing 79.8 ml/min Est GFR ( Amer) 97.7 Est GFR (Non-Af Amer) 84.3 BUN/Creatinine Ratio 15.1 (10-20) Glucose 120 H (70-99) mg/dl Calcium 7.5 L (8.5-10.1) mg/dl Phosphorus (2.5-4.9) mg/dl Magnesium (1.8-2.4) mg/dl Total Bilirubin 0.5 (0.2-1) mg/dl AST 57 H (15-37) U/L ALT 31 (12-78) U/L Alkaline Phosphatase 73 (45-117) U/L Ammonia (11-32) umol/L Total Creatine Kinase 1323 H (39-308) U/L Troponin I 1.390 H* (0-0.045) ng/ml NT-Pro-B Natriuret Pep (0-1800) pg/ml Total Protein 7.0 (6.4-8.2) gm/dl Albumin 3.3 L (3.4-5.0) gm/dl Globulin 3.7 (2.5-4.0) gm/dl Albumin/Globulin Ratio 0.9 (0.9-2) Procalcitonin < 0.05 (0-0.5) ng/ml Fld Lyme DNA (PCR) Fluid Comment CSF Appearance CSF Color Xanthrochromic CSF WBC (0-5) /uL CSF RBC (0-) /uL CSF Cell Count Tube # CSF Chemistry Tube # CSF Glucose (40-70) mg/dl CSF Lactate (0.6-2.2) mmol/L CSF Total Protein CSF Lyme IgG (Immblot) CSF Lyme IgG Bands Det CSF Lyme IgM (Immblot) CSF Lyme IgM Bands Det CSF C.neoform/gat PCR CSF CMV DNA (PCR) CSF Enterovirus (PCR) CSF E. coli K1 (PCR) CSF H. influenzae (PCR) CSF HSV I (PCR) CSF HSV II (PCR) CSF HHV 6 (PCR) CSF L.monocytogenes PCR CSF N. meningitidis PCR CSF Parechovirus (PCR) CSF S. agalactiae (PCR) CSF S. pneumoniae (PCR) CSF VZV DNA (PCR) Nasal Screen MRSA (PCR) Negative (Negative) Valproic Acid (50-100) mcg/ml RPR (Nonreactive) Lyme Specimen Source 10/07/20 10/07/20 10/06/20 Range/Units 06:50 06:50 17:38 WBC 11.48 H (4.8-10.8) K/uL RBC 4.13 L (4.7-6.1) M/uL Hgb 12.5 L (14.0-18.0) g/dL Hct 36.5 L (42-52) % MCV 88.4 (80-100) fL MCH 30.3 (25-34) pg MCHC 34.2 (32-36) g/dL RDW Std Deviation 49.7 H (36.4-46.3) fL RDW Coeff of Deborah 15.6 H (11.5-14.5) % Plt Count 252 (130-400) K/uL MPV 9.6 (7.4-10.4) fL PT (9.0-12.0) Seconds INR (0.9-1.1) APTT (21.0-31.0) Seconds PTT Ratio POC pH (7.35-7.45) POC pCO2 (35-46) mmHg POC pO2 (80-95) mmHg POC HCO3 (19-24) tj/L POC Total CO2 (24-31) mmol/L POC Base Excess (-9-1.8) tj/L ABG pH 7.45 (7.35-7.45) ABG pCO2 33 L (35-46) mmHg ABG pO2 60 L (80-95) mmHg ABG HCO3 22 (19-24) mmol/L POC ABG O2 Sat (90-95) % ABG O2 Saturation 91.6 (90-95) % ABG Base Excess -1.1 (-9-1.8) mEq/L Suhail Test POS (Pos) Barometric Pressure 729.1 mm/Hg Oxygen Given ROOM AIR Sodium 142 (136-145) mmol/L Potassium 3.9 (3.5-5.1) mmol/L Chloride 111 H (98-107) mmol/L Carbon Dioxide 25 (21-32) mmol/L Anion Gap 6.0 (3-11) BUN 13 (7-18) mg/dl Creatinine 0.93 (0.6-1.4) mg/dl Est Cr Clr Drug Dosing 71.2 ml/min Est GFR ( Amer) 90.8 Est GFR (Non-Af Amer) 78.4 BUN/Creatinine Ratio 13.9 (10-20) Glucose 125 H (70-99) mg/dl Calcium 7.7 L (8.5-10.1) mg/dl Phosphorus 3.3 (2.5-4.9) mg/dl Magnesium 2.1 (1.8-2.4) mg/dl Total Bilirubin 0.9 (0.2-1) mg/dl AST 57 H (15-37) U/L ALT 33 (12-78) U/L Alkaline Phosphatase 78 (45-117) U/L Ammonia (11-32) umol/L Total Creatine Kinase (39-308) U/L Troponin I (0-0.045) ng/ml NT-Pro-B Natriuret Pep 37015 H (0-1800) pg/ml Total Protein 7.4 (6.4-8.2) gm/dl Albumin 3.5 (3.4-5.0) gm/dl Globulin 3.9 (2.5-4.0) gm/dl Albumin/Globulin Ratio 0.9 (0.9-2) Procalcitonin (0-0.5) ng/ml Fld Lyme DNA (PCR) Fluid Comment CSF Appearance CSF Color Xanthrochromic CSF WBC (0-5) /uL CSF RBC (0-) /uL CSF Cell Count Tube # CSF Chemistry Tube # CSF Glucose (40-70) mg/dl CSF Lactate (0.6-2.2) mmol/L CSF Total Protein CSF Lyme IgG (Immblot) CSF Lyme IgG Bands Det CSF Lyme IgM (Immblot) CSF Lyme IgM Bands Det CSF C.neoform/gat PCR CSF CMV DNA (PCR) CSF Enterovirus (PCR) CSF E. coli K1 (PCR) CSF H. influenzae (PCR) CSF HSV I (PCR) CSF HSV II (PCR) CSF HHV 6 (PCR) CSF L.monocytogenes PCR CSF N. meningitidis PCR CSF Parechovirus (PCR) CSF S. agalactiae (PCR) CSF S. pneumoniae (PCR) CSF VZV DNA (PCR) Nasal Screen MRSA (PCR) (Negative) Valproic Acid (50-100) mcg/ml RPR (Nonreactive) Lyme Specimen Source 10/05/20 Range/Units 13:01 WBC (4.8-10.8) K/uL RBC (4.7-6.1) M/uL Hgb (14.0-18.0) g/dL Hct (42-52) % MCV (80-100) fL MCH (25-34) pg MCHC (32-36) g/dL RDW Std Deviation (36.4-46.3) fL RDW Coeff of Deborah (11.5-14.5) % Plt Count (130-400) K/uL MPV (7.4-10.4) fL PT (9.0-12.0) Seconds INR (0.9-1.1) APTT (21.0-31.0) Seconds PTT Ratio POC pH (7.35-7.45) POC pCO2 (35-46) mmHg POC pO2 (80-95) mmHg POC HCO3 (19-24) tj/L POC Total CO2 (24-31) mmol/L POC Base Excess (-9-1.8) tj/L ABG pH (7.35-7.45) ABG pCO2 (35-46) mmHg ABG pO2 (80-95) mmHg ABG HCO3 (19-24) mmol/L POC ABG O2 Sat (90-95) % ABG O2 Saturation (90-95) % ABG Base Excess (-9-1.8) mEq/L Suhail Test (Pos) Barometric Pressure mm/Hg Oxygen Given Sodium (136-145) mmol/L Potassium (3.5-5.1) mmol/L Chloride (98-107) mmol/L Carbon Dioxide (21-32) mmol/L Anion Gap (3-11) BUN (7-18) mg/dl Creatinine (0.6-1.4) mg/dl Est Cr Clr Drug Dosing ml/min Est GFR ( Amer) Est GFR (Non-Af Amer) BUN/Creatinine Ratio (10-20) Glucose (70-99) mg/dl Calcium (8.5-10.1) mg/dl Phosphorus (2.5-4.9) mg/dl Magnesium (1.8-2.4) mg/dl Total Bilirubin (0.2-1) mg/dl AST (15-37) U/L ALT (12-78) U/L Alkaline Phosphatase (45-117) U/L Ammonia (11-32) umol/L Total Creatine Kinase (39-308) U/L Troponin I (0-0.045) ng/ml NT-Pro-B Natriuret Pep (0-1800) pg/ml Total Protein (6.4-8.2) gm/dl Albumin (3.4-5.0) gm/dl Globulin (2.5-4.0) gm/dl Albumin/Globulin Ratio (0.9-2) Procalcitonin (0-0.5) ng/ml Fld Lyme DNA (PCR) Fluid Comment CSF Appearance CSF Color Xanthrochromic CSF WBC (0-5) /uL CSF RBC (0-) /uL CSF Cell Count Tube # CSF Chemistry Tube # CSF Glucose (40-70) mg/dl CSF Lactate (0.6-2.2) mmol/L CSF Total Protein CSF Lyme IgG (Immblot) CSF Lyme IgG Bands Det CSF Lyme IgM (Immblot) CSF Lyme IgM Bands Det CSF C.neoform/gat PCR CSF CMV DNA (PCR) CSF Enterovirus (PCR) CSF E. coli K1 (PCR) CSF H. influenzae (PCR) CSF HSV I (PCR) CSF HSV II (PCR) CSF HHV 6 (PCR) CSF L.monocytogenes PCR CSF N. meningitidis PCR CSF Parechovirus (PCR) CSF S. agalactiae (PCR) CSF S. pneumoniae (PCR) CSF VZV DNA (PCR) Nasal Screen MRSA (PCR) (Negative) Valproic Acid (50-100) mcg/ml RPR Nonreactive (Nonreactive) Lyme Specimen Source Medications Administered Current Inpatient Medications Acetaminophen (Acetaminophen 325 Mg Tab) 650 mg PO Q4H PRN PRN Reason: Pain or Fever Stop: 11/04/20 12:26 Al Hydrox/Mg Hydrox/Simethicone (Aluminum/Magnesium Susp 30 Ml Udc) 15 ml PO Q4H PRN PRN Reason: Dyspepsia Stop: 11/04/20 12:26 Albuterol (Albut/Ipratrop 3mg/0.5mg Neb 3 Ml Vial) 3 ml INH TID KD Stop: 11/04/20 08:59 Last Admin: 10/07/20 13:01 Dose: 3 ml Documented by: Aspirin (Aspirin 81 Mg Ectab) 162 mg PO QAM KD Stop: 11/04/20 08:59 Last Admin: 10/07/20 09:35 Dose: Not Given Documented by: Atorvastatin Calcium (Atorvastatin 40 Mg Tab) 80 mg PO HS KD Stop: 11/04/20 20:59 Last Admin: 10/06/20 22:12 Dose: Not Given Documented by: Duloxetine HCl (Duloxetine Hcl 60 Mg Cap) 60 mg PO HS [facility] Stop: 11/04/20 20:59 Last Admin: 10/06/20 22:10 Dose: Not Given Documented by: Duloxetine HCl (Duloxetine Hcl 30 Mg Cap) 30 mg PO HS [facility] Stop: 11/04/20 20:59 Last Admin: 10/06/20 22:10 Dose: Not Given Documented by: Finasteride (Finasteride 5 Mg Tab) 5 mg PO QAM KD Stop: 11/04/20 08:59 Last Admin: 10/07/20 09:35 Dose: Not Given Documented by: Lorazepam (Ativan) 1 mg in 2 mls @ 2 mls/min IV Q4H PRN PRN Reason: Agitation Stop: 11/05/20 13:31 Last Admin: 10/07/20 07:47 Dose: 2 mls/min Documented by: Valproic Acid 500 mg/ Dextrose 55 mls @ 55 mls/hr IV TID KD Stop: 11/05/20 20:59 Last Infusion: 10/07/20 15:31 Dose: Infused Documented by: Ceftriaxone Sodium 2,000 mg/ (Dextrose) 70 mls @ 140 mls/hr IV Q12H [facility] Stop: 10/16/20 17:59 Last Infusion: 10/07/20 10:47 Dose: Infused Documented by: Ampicillin Sodium 2,000 mg/ (Sodium Chloride) 100 mls @ 200 mls/hr IV Q4H KD Stop: 10/16/20 17:59 Last Admin: 10/07/20 16:48 Dose: 200 mls/hr Documented by: Thiamine HCl 100 mg/ Syringe 10 mls @ 2 mls/min IV QAM KD Stop: 11/06/20 08:59 Last Admin: 10/07/20 09:32 Dose: 2 mls/min Documented by: Folic Acid 1 mg/ Syringe 10 mls @ 5 mls/min IV QAM KD Stop: 11/06/20 08:59 Last Admin: 10/07/20 09:32 Dose: 5 mls/min Documented by: Furosemide 20 mg/ Syringe 2 mls @ 4 mls/min IV DAILY KD Stop: 11/06/20 11:59 Last Admin: 10/07/20 12:43 Dose: 4 mls/min Documented by: Acyclovir Sodium 650 mg/ (Dextrose) 113 mls @ 100 mls/hr IV Q8H [facility] Stop: 10/17/20 12:14 Last Infusion: 10/07/20 15:31 Dose: Infused Documented by: Dexmedetomidine HCl 200 mcg/ (Sodium Chloride) 50 mls @ 9.65 mls/hr IV .Q5H11M [facility]; Protocol Stop: 10/11/20 13:59 Last Titration: 10/07/20 15:31 Dose: 0.4 mcg/kg/hr, 9.7 mls/hr Documented by: Vancomycin HCl 1,500 mg/ (Sodium Chloride) 530 mls @ 200 mls/hr IV Q12H [facility] Stop: 10/17/20 15:59 Last Admin: 10/07/20 16:48 Dose: 200 mls/hr Documented by: Isosorbide Mononitrate (Isosorbide Daniels Extended Rel 60 Mg Tabcr) 60 mg PO [facility] Stop: 11/04/20 08:59 Last Admin: 10/07/20 09:35 Dose: Not Given Documented by: Loratadine (Loratadine 10 Mg Tab) 10 mg PO DAILY PRN PRN Reason: Allergy Symptoms Stop: 11/04/20 07:31 Magnesium Hydroxide (Magnesium Hydroxide Susp 30 Ml Udc) 30 ml PO Q12H PRN PRN Reason: Constipation Stop: 11/04/20 12:26 Magnesium Oxide (Magnesium Oxide 400 Mg Tab) 400 mg PO BID [facility] Stop: 11/04/20 20:59 Last Admin: 10/07/20 09:35 Dose: Not Given Documented by: Metoprolol Succinate (Metoprolol Succ 25mg Ext Rel Tab) [facility] [place]: 11/04/20 08:59 Last Admin: 10/07/20 09:36 Dose: Not Given Documented by: Metoprolol Tartrate (Metoprolol Tartrate 1 Mg/Ml Vial) 2.5 mg IV Q6H [facility] Stop: 11/05/20 15:59 Last Admin: 10/07/20 16:48 Dose: 2.5 mg Documented by: Miscellaneous (Remove Nicoderm Patch) 1 ea N/A DAILY@[id number] [facility] Stop: 11/06/20 08:58 Last Admin: 10/07/20 07:48 Dose: 1 ea Documented by: Miscellaneous Information (Vancomycin Consult Active) 1 ea N/A UD PRN PRN Reason: Consult Stop: 11/05/20 19:44 Multivitamins (Multivitamin Tab) 1 tab PO QAM [facility] Stop: 11/04/20 08:59 Last Admin: 10/07/20 09:35 Dose: Not Given Documented by: Nicotine (Nicotine 14 Mg/24 Hr Patch) 14 mg TD QAM [facility] Stop: 11/05/20 05:34 Last Admin: 10/07/20 07:56 Dose: 14 mg Documented by: Nicotine Polacrilex (Nicotine Polacrilex 2 Mg Gum) 1 piece MT Q1H PRN PRN Reason: smoking urge Stop: 11/05/20 05:30 Ondansetron HCl (Ondansetron Inj 2 Mg/Ml 2 Ml Vial) 4 mg IV Q6H PRN PRN Reason: Nausea Stop: 11/04/20 12:26 Polyethylene Glycol (Polyethylene (Miralax) 17 Gm Pack) 17 gm PO DAILY PRN PRN Reason: Constipation Stop: 11/04/20 12:26 Potassium Chloride (Potassium Chloride 10 Meq Tabcr) 10 meq PO BID [facility] Stop: 11/04/20 08:59 Last Admin: 10/07/20 09:35 Dose: Not Given Documented by: Ropinirole HCl (Ropinirole Hcl 0.25 Mg Tablet) 0.5 mg PO [facility] Stop: 11/04/20 20:59 Last Admin: 10/06/20 22:12 Dose: Not Given Documented by: Sacubitril/Valsartan (Sacubitril-Valsartan 24-26 Mg Tab) 1 tab PO BID [facility] Stop: 11/04/20 08:59 Last Admin: 10/07/20 09:35 Dose: Not Given Documented by: Tamsulosin HCl (Tamsulosin Hcl 0.4 Mg Cap) 0.4 mg PO [facility] Stop: 11/04/20 20:59 Last Admin: 10/06/20 22:11 Dose: Not Given Documented by: Trazodone HCl (Trazodone Hcl 100 Mg Tab) 50 mg PO [facility] Stop: 11/04/20 20:59 Last Admin: 10/06/20 22:11 Dose: Not Given Documented by: (1) CAD (coronary artery disease) Associated angina: unspecified whether angina present Coronary Disease-Associated Artery/Lesion type: [place] artery [place] vs. transplanted heart: [place] heart Qualified Code(s): I25.10 - Atherosclerotic heart disease of [place] coronary artery without angina pectoris (2) CHF (congestive heart failure) Heart failure chronicity: acute on chronic Heart failure type: combined systolic and diastolic Qualified Code(s): I50.43 - Acute on chronic combined systolic (congestive) and diastolic (congestive) heart failure (3) Aortic stenosis Cardiac valve disease etiology: nonrheumatic Qualified Code(s): I35.0 - Nonrheumatic aortic (valve) stenosis
[2020-10-07 16:47] LABS: CSF Glucose 75 mg/dl (40-70)
[2020-10-07 16:50] LABS: CSF Count Tube # 3
[2020-10-07 16:51] LABS: Appearance CSF Bloody; CSF Xanthrochromic No xanthochromia; Color CSF Red; Red Blood Cell CSF (A) 7650 /uL (0-); White Blood Cell CSF (A) 0 /uL (0-5)
[2020-10-07 16:54] LABS: Lactate CSF 2.9 mmol/L (0.6-2.2)
--- NOTE | 2020-10-07 17:00 | Fluoroscopy Report ---
FLUOROSCOPICALLY GUIDED LUMBAR PUNCTURE CLINICAL HISTORY: AMS, decreased responsiveness, hallucinations FLUOROSCOPY TIME: 1 minute and 48 seconds. NUMBER OF FLUOROSCOPIC IMAGES: 6. PROCEDURE: Given patient's altered mental status, the procedure, risks and benefits were discussed wi th the patient's son including the risk of spinal headache, bleeding and infection. The patient's son agreed to the procedure and informed written consent was obtained. The procedure was performed by Dr Isabel Sprague following a timeout. The right L4-L5 interlaminar space was targeted. Skin overlying the space was prepped and draped in sterile fashion and local anesthesia was achieved with 1% lidocaine. Under intermittent fluoroscopic guidance, a 5 inch, 22-gauge spinal needle was directed into the thec al sac. There was return of only a small amount of cerebrospinal fluid. Therefore, the right L3-L4 in terlaminar space was targeted with a 20-gauge 5 inch needle. CSF was initially blood-tinged but quick ly cleared. A total of 6.5 cc of CSF was collected in 4 vials and sent to the laboratory as ordered. The needle was removed. The patient tolerated the procedure well and no immediate complications were evident. IMPRESSION: Successful fluoroscopically guided lumbar puncture with collection of 6.5 cc of cerebrospinal fluid w hich was sent to the laboratory for analysis as ordered. CSF initially blood tinged but quickly clear ed. ACT 112: Negative or not required by law. Electronically signed by: Lionel Sprague M.D. 10/07/2020 4:59 PM
--- NOTE | 2020-10-07 17:06 | Billing Data ---
Date of Service October 07, 2020 Coding Level of Care Code Critical Care 1st 30-74 mins Time Spent (min) 56
[2020-10-07 17:25] LABS: iSTAT Arterial Blood Gas HCO3 28 meg/L (19-24); iSTAT Arterial Blood Gas pCO2 61 mmHg (35-46); iSTAT Arterial Blood Gas pH 7.27 (7.35-7.45); iSTAT Arterial Blood Gas pO2 110 mmHg (80-95); iSTAT Carbon Dioxide 30 mmol/L (24-31)
[2020-10-07 18:08] LABS: Cryptococcus neoformans/ga PCR Not Detected (NotDetected); Cytomegalovirus PCR Not Detected (NotDetected); Enterovirus PCR Not Detected (NotDetected); Escherichia coli K1 PCR Not Detected (NotDetected); Haemophilius influenzae PCR Not Detected (NotDetected); Herpes Simplex Virus 1 PCR Not Detected (NotDetected); Herpes Simplex Virus 2 PCR Not Detected (NotDetected); Human Herpes Virus 6 PCR Not Detected (NotDetected); Human Parechovirus PCR Not Detected (NotDetected); Listeria monocytogenes PCR Not Detected (NotDetected); Neisseria meningitidis PCR Not Detected (NotDetected); Streptococcus agalactiae PCR Not Detected (NotDetected); Streptococcus pneumoniae PCR Not Detected (NotDetected); Varicella Zoster Virus PCR Not Detected (NotDetected)
[2020-10-07 19:59] LABS: CSF Chemistry Tube # 1
--- NOTE | 2020-10-07 20:55 | Consultation Report ---
DATE OF CONSULTATION: 10/07/2020 HISTORY OF PRESENT ILLNESS: We are asked to see this patient in evaluation of a change in mentation. He was admitted on 10/05/2020 for a change in mentation. He was described as being alert and oriented, but with strong visual hallucinations. He was brought to the Emergency Room on a 302 petition. He had called the police and indicated that there was someone in his home. He apparently had weapons available. The police were not able to find anyone at the home. His tox screen on admission was negative, but he was to be taking narcotics up to 4 times a day and it was thought that in part perhaps there was a component of narcotic withdrawal playing into this. On admission, his CT of the head noncontrast was unremarkable and I have reviewed that. His white count was normal. Sodium was 130. Glucose was 103, calcium was 6.8 with a normal albumin. COVID and influenza virus testing negative. The patient had received several doses of Zyprexa. The patient was given Ativan on this morning, but later in the morning, he had apnea and a drop in O2 saturation, was transferred to the ICU. He was placed on BiPAP. He underwent a diagnostic lumbar puncture, which showed xanthochromia and no white cells. Protein is pending. Viral titers are negative. His laboratory data today is notable for a glucose of 120, calcium of 7.5, AST of 57 and ammonia of 35. CK of 1300. His albumin was 3.3, which is mildly low. PTH is pending. Chest x-ray today showed cardiomegaly with evidence of congestive failure, bibasilar airspace opacities likely representing scarring or atelectasis. PHYSICAL EXAMINATION: On our examination, he had received Precedex an hour or so prior for lumbar puncture. He was on a BiPAP. His respiratory rate earlier was approximately 16, pulse 88, blood pressure 133/67, FIO2 28%. The patient was only responsive to deep suctioning. He moved his right arm somewhat more than his left arm. His pupils were miotic and not reactive. There was no fixed gaze preference. There was no doll's eyes. The right corneal was trace present. No facial grimace. No withdrawal to pain for stimulation in the extremities. Reflexes were symmetric. Toes were bilaterally upgoing. Neck was supple. IMPRESSION: Global encephalopathy, query related to CO2 retention and earlier hypoxemia, although CO2 retention typically would not cause miotic pupils. The patient has not received pain medication to suggest it is related. The atypical phenothiazines have been reported as causing miosis. Alternatively, the patient could have a pontine localization for his current mentation, although it would need to be bilateral pontine given his motor findings. PLAN: Close addressing of respiratory status. If mentation remains unchanged in spite of normalization of CO2, then would consider a CT of the head and a CTA of the head and neck. An MRI would be the most helpful piece of information, but likely it would be technically quite difficult. The patient appears to have mild hypocalcemia, which does not entirely correct for the level of albumin. EEG performed earlier this morning showed no evidence of seizure or subclinical status epilepticus. Consider repeat if mentation remains unchanged. Given the absence of white cells in the CSF, if the antibiotics currently being used are being used for empiric treatment for meningitis, I believe they can be discontinued. Depakote has been given at some point for behavior issues, I believe this can be held at present. Agree with thiamine and folic acid supplementation. We will follow with you.
[2020-10-07] MEDS: DULoxetine HCL 60 MG CAP PO SCH ×2 (21:28→21:42)
[2020-10-07] MEDS: ATORVASTATIN 40 MG TAB PO SCH ×2 (21:28→21:42)
[2020-10-07] MEDS: TAMSULOSIN HCL 0.4 MG CAP PO SCH ×2 (21:28→21:42)
[2020-10-07] MEDS: traZODone HCL 100 MG TAB PO SCH ×2 (21:28→21:42)
[2020-10-07] MEDS: DULoxetine HCL 30 MG CAP PO SCH ×2 (21:28→21:42)
[2020-10-07] MEDS: rOPINIRole HCL 0.25 MG TABLET PO SCH ×2 (21:29→21:43)
[2020-10-07] MEDS ORDERED: POTASSIUM CHLORIDE / WTR 10 MEQ/100 ML PLCT IV ONE (21:45)
[2020-10-08 00:04] LABS: iSTAT Arterial Blood Gas HCO3 26 meg/L (19-24); iSTAT Arterial Blood Gas pCO2 40 mmHg (35-46); iSTAT Arterial Blood Gas pH 7.43 (7.35-7.45); iSTAT Arterial Blood Gas pO2 114 mmHg (80-95); iSTAT Carbon Dioxide 28 mmol/L (24-31); iSTAT Hematocrit 37 % (42-52); iSTAT Hemoglobin 12.6 g/dl (14.0-18.0); iSTAT Potassium 3.9 mmol/L (3.3-5.0); iSTAT Sodium 143 mmol/L (135-144)
[2020-10-08] MEDS ORDERED: VANCOMYCIN TROUGH ONE ×2 (03:30→15:30)
[2020-10-08] MEDS: ACYCLOVIR SOD 650 MG in DEXTROSE 5% 100 ML IV SCH (03:50)
[2020-10-08] MEDS: METOPROLOL TARTRATE 1 MG/ML VIAL IV SCH ×5 (03:50→23:16)
[2020-10-08 04:32] LABS: Hematocrit (blood only) 37.7 % (42-52); Hemoglobin 12.6 g/dL (14.0-18.0); Mean Corpuscular Hemoglobin 30.1 pg (25-34); Mean Corpuscular Hgb Conc 33.4 g/dL (32-36); Mean Corpuscular Volume 90.2 fL (80-100); Mean Platelet Volume 9.2 fL (7.4-10.4); Platelet Count 200 K/uL (130-400); RDW Coefficient of Variation 15.7 % (11.5-14.5); RDW Standard Deviation 51.1 fL (36.4-46.3); Red Blood Count 4.18 M/uL (4.7-6.1); White Blood Count 9.32 K/uL (4.8-10.8)
[2020-10-08 04:56] LABS: Albumin Level 3.1 gm/dl (3.4-5.0); BUN Creatinine Ratio 18.9 (10-20); Calcium 7.7 mg/dl (8.5-10.1); Creatinine Clr Calc Pharmacy 78.6 ml/min; Est GFR (African American) 98.7; Est GFR (Non-African American) 85.1; Magnesium 2.1 mg/dl (1.8-2.4); Potassium 3.8 mmol/L (3.5-5.1)
[2020-10-08 04:59] LABS: Albumin Globulin Ratio 0.8 (0.9-2); Bilirubin,Total 0.6 mg/dl (0.2-1); Globulin 4.1 gm/dl (2.5-4.0); Phosphorus 3.6 mg/dl (2.5-4.9); Total Protein 7.2 gm/dl (6.4-8.2)
--- NOTE | 2020-10-08 06:12 | Electrocardiogram Report ---
Test Reason : Blood Pressure : / mmHG Vent. Rate : 115 BPM Atrial Rate : 115 BPM P-R Int : 168 ms QRS Dur : 118 ms QT Int : 362 ms P-R-T Axes : 000 244 098 degrees QTc Int : 500 ms Poor data quality, interpretation may be adversely affected Suspect arm lead reversal, interpretation assumes no reversal Sinus tachycardia Possible Inferior infarct , age undetermined Lateral infarct , age undetermined Anteroseptal infarct Abnormal ECG When compared with ECG of 05-OCT-2020 00:58, Probable Limb lead reversal is now present Confirmed by Celestine Grimes ([id number]) on 10/08/2020 6:12:24 AM Referred By: REFERRED SELF Confirmed By:Celestine Grimes
--- NOTE | 2020-10-08 06:37 | Electrocardiogram Report ---
Test Reason : Blood Pressure : / mmHG Vent. Rate : 087 BPM Atrial Rate : 087 BPM P-R Int : 234 ms QRS Dur : 130 ms QT Int : 432 ms P-R-T Axes : 073 -56 092 degrees QTc Int : 519 ms Sinus rhythm with 1st degree A-V block Left axis deviation Left ventricular hypertrophy with QRS widening Septal infarct T wave abnormality, consider lateral ischemia Abnormal ECG When compared with ECG of 06-OCT-2020 20:58, IN interval has increased Criteria for Inferior infarct are no longer Present Questionable change in initial forces of Anterolateral leads Confirmed by Celestine Grimes ([id number]) on 10/08/2020 6:36:57 AM Referred By: REFERRED SELF Confirmed By:Celestine Grimes
--- NOTE | 2020-10-08 06:51 | Critical Care Progress Note ---
Date of Service October 08, 2020 Assessment & Plan (1) Acute heart failure with reduced ejection fraction and diastolic dysfu nction: Eugene is a 79-year-old male with a notable past medical history of heart failure with reduced ejection fraction, CAD, moderate aortic stenosis, hypertension, hyperlipidemia, type 2 diabetes, COPD, tobacco abuse, LOLA on CPAP, and depression with anxiety who presented to [facility] by 302 for visual hallucinations and concern for the potential of firearm use in this context at home, subsequently to have electrolyte abnormalities upon arrival; two days into his course, he developed impaired responsiveness with intermittent periods of apnea and hypoxia. As such, he was transferred to the ICU for further medical monitoring and work-up. Neuro - Sedation: None Analgesia: None at present - Patient did demonstrate increased responsiveness last night and this AM - responded to some questions - Suspect primary precipitating factor for poor responsiveness and decreased respiratory drive is 2/2 oversedation - also possibly contributory: - Dementia - likely has degree of this based on chart review - Initial acute hypoxemic, hypercapnic respiratory failure likely contributory - [employer] infex seeming less likely - CSF demonstrating bloody tap, but no WBCs. CSF biofire live-negative at this point. Awaiting Lyme serologies, CSF Cx - Awaiting BCX - Initial CT-Head on arrival without acute process. Does have pinpoint pupils. ?pontine involvement - Mild hypoCa - otherwise, lytes normal- on arrival was hyponatremic, hypomagnesemic, hypocalcemic - Does not seem that home medications are likely contributing at present - Discontinue ABX, acyclovir - Continue Depakote per Neurology for agitated delirium Cardiac - - Currently hemodynamically stable. - Patient has known h/o CAD, HFrEF, moderate . Upon arrival to ICU, troponin at 1.390; ECG without acute changes in conduction or repolarization. 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 Will trend. Continue CCM. - Likely has mild component of CHF exacerbation -- BNP elevated to >81752, last echo in 06/13 demonstrating EF 40-45%. Net positive ~2.5L since admission with CXR demonstrating mild vascular congestion in setting of his medications. Continue scheduled Lasix. Monitor renal function. - QTc 500 - avoid prolonging agents including antipsychotics if possible - Continue ASA, statin, Imdur, Toprol, Entresto - Cardiology, nephrology following. Respiratory - - Acute hypoxemic, hypercapnic respiratory failure yesterday likely primarily due to oversedation - In setting of pulmonary vascular congestion on CXR, suspect this acute hypoxemic, hypercapnic respiratory failure (revealed by ABG) is likely 2/2 oversedation and component of pulmonary edema from CHF - Continue work-up above - Continue BiPAP for now, wean as appropriate - Lasix therapy as above GI - - Review of chart revealing of 2-week history of diarrhea prior to admission - Await stool studies once available - Certainly can consider adding bowel regimen should no natural BM occur soon - Resume normal diet RENAL/LYTES - - Serum and urine osmolality, alongside random urine sodium, collected early in hospital course were suggestive of possible dilutional polydipsia -- in setting of PPI use, too, may explain early electrolyte derangements - No significant electrolyte disturbances at present - Nephrology, cardiology following - Cr, BUN stable right now - monitor in setting of diuresis - Replace lytes as needed - - Cuenca catheter, strict I+Os ENDO - - Known history of T2DM. Hold home medications. ICU Hyperglycemia protocol. HEME - - Stable H&H, INR, PTT - Continue to monitor on daily labs ID - - Seems unlikely that infection is primary etiology for AMS and presenting agitated delirium and hallucinations - No significant leukocytosis, fever, procalc while here - As above in Neuro -- CSF unrevealing of signs of infection at present - BCX ordered - await results (not taken at admission; these cultures will be s/p ABX initiation) - Discontinue ABX, acyclovir INTEGUMENTARY - - No major concerns at present LINES/IV ACCESS - - PIVs intact. DVT PROPHYLAXIS - - SCDs Dispo: Stable for transfer up to medical floors. Primary team aware. Thank you for allowing us to be part of this patient's care. Please refer to Dr. Arias's documentation for any further recommendations. (2) Elevated brain natriuretic peptide (BNP) level: (3) Altered mental status: (4) LBBB (left bundle branch block): (5) Electrolyte and fluid disorder: (6) DVT prophylaxis: (7) Hyponatremia: (8) Hypocalcemia: (9) Paranoid delusion: (10) Hypokalemia: (11) Visual hallucination: (12) Smoking: (13) COPD (chronic obstructive pulmonary disease): (14) Chronic systolic (congestive) heart failure: (15) Chest pain: (16) Elevated troponin: (17) Hypoxia: (18) Chronic nonallergic rhinitis: (19) Sleep apnea: (20) Peripheral vascular disease: (21) Aortic stenosis: (22) CAD (coronary artery disease): Admission and Anticipated Discharge Date Admission Date: October 05, 2020 Supervising Physician Co-Signing Physician Notes Dr. Avilez was the resident-physician during care of patient. I separately evalua mara patient for ernandez portions of the history and the exam. I was present during the critical portion of medical decision making, and I discussed the case with the resident. I generally agree with the findings and plan except for any additions/exceptions noted. Patient mental status has significantly improved this morning. He is cooperative with exam but sometimes confused. LP yesterday was negative for evidence of bacterial meningitis. HSV PCR was negative as well. All antibiotics have been discontinued. Patient was stable for transfer to floor. This was communicated to the hospitalist as well. He was discussed on multidisciplinary rounds. Subjective Per overnight team, patient did demonstrate increased responsiveness last night. He did intermittently respond to a few questions, although he was noted to be confused. At 1 point, he even sat at the edge of the bed. On assessment this morning, patient is not responding to my tactile or verbal stimuli. However, on reassessment, he awakens and responds to my questions - although not with appropriate answers. He remains hemodynamically stable. Does not appear in any obvious distress. Review of Systems Review of Systems: As per HPI Physical Exam Physical Exam: General: Somnolent 79-year-old male who intermittently moans. Wakes and responds to questions, although not appropriately. HEENT: Mucous membranes do appear moist. Pupils are approximately 2 mm and equal. Without change from previous exam. Sluggishly reactive to light. Corneal reflex present. Neck veins appear flat. No appreciable JVD is noted. Cardiac: Normal rate, regular rhythm. S1 and S2 are present. There is a grade 2 out of 6 systolic ejection murmur best heard up at the right upper sternal border that does radiate to the left. Respiratory: BiPAP in place. Upper airway sounds do resonate into the lung sh[place]la still. Murmur makes it difficult to auscultate clearly. Of what could be heard, intermittent expiratory rhonchi, globally diminished breath sounds. Abdominal: Normoactive bowel sounds. Abdomen is soft, nondistended does not elicit facial grimace to palpation. Extremities: Radial pulses and dorsalis pedis pulses 2+ bilaterally. No peripheral edema in the lower extremities bilaterally. Neurologic: Cranial nerve II exam, as above. Maintained flaccid tone while sleeping on previous assessment. Not appreciated in LEs. 1+ patellar reflex. Babinski downgoing. No clonus. Results & Data Results & Data ([facility]) Vital Signs (Past 12 Hours) Vital Signs Temp Pulse Pulse Resp BP Pulse Ox 10/08/20 05:52 37.3 C 85 19 139/64 96 10/08/20 04:52 37.2 C 94 H 18 163/73 H 94 10/08/20 03:52 37.3 C 86 19 129/77 98 10/08/20 03:30 88 17 100 10/08/20 03:04 37.4 C 86 16 142/78 H 95 10/08/20 02:54 37.1 C 88 16 161/80 H 99 10/08/20 01:51 37.7 C H 88 16 128/62 93 10/08/20 00:52 38.0 C H 96 H 21 133/65 98 10/08/20 00:00 92 H 10/07/20 23:51 38.2 C H 93 H 18 124/66 100 10/07/20 23:21 38.3 C H 90 16 143/82 H 99 10/07/20 23:10 94 H 19 100 10/07/20 22:52 38.2 C H 96 H 23 170/88 H 100 10/07/20 21:51 37.9 C H 92 H 18 124/65 91 10/07/20 20:51 37.9 C H 94 H 18 117/61 99 10/07/20 19:51 37.5 C 88 17 142/68 H 100 10/07/20 19:39 88 17 100 10/07/20 19:25 96 H 17 99 10/07/20 18:51 37.2 C 96 H 15 159/77 H 96 Resident Activity Tracking Resident Involvement: Resident Care Provided Care Provided: Adult Hospital Medicine (1) CAD (coronary artery disease) Associated angina: unspecified whether angina present Coronary Disease- Associated Artery/Lesion type: [place] artery [place] vs. transplanted heart: [place] heart Qualified Code(s): I25.10 - Atherosclerotic heart disease of [place] coronary artery without angina pectoris (2) Aortic stenosis Cardiac valve disease etiology: nonrheumatic Qualified Code(s): I35.0 - Nonrheumatic aortic (valve) stenosis (3) Chest pain Chest pain type: unspecified Qualified Code(s): R07.9 - Chest pain, unspecified
[2020-10-08] MEDS: ALBUT/IPRATROP 3MG/0.5MG NEB 3 ML VIAL INH SCH ×3 (06:59→19:33)
--- NOTE | 2020-10-08 07:40 | XRay Report ---
XR chest 1V portable HISTORY: Shortness of breath. Pneumonia. Follow-up. COMPARISON: Chest 10/07/2020. FINDINGS: The cardiac silhouette remains mildly enlarged. Mild pulmonary vascular congestion has impr cruzito. The left base airspace opacity has also improved. No pneumothorax. No pleural effusions. IMPRESSION: 1. Stable mild cardiomegaly. 2. Interval improvement in the pulmonary vascular congestion and bibasilar airspace opacities. ACT 112: Negative or not required by law. Electronically signed by: Chandu Bone M.D. 10/08/2020 7:39 AM
--- NOTE | 2020-10-08 08:43 | Hospitalist Progress Note ---
Date of Service October 08, 2020 Assessment & Plan (1) Visual hallucination: (2) Paranoid delusion: This is a 79-year-old male who has significant past medical history of chronic HFrEF, CAD, HTN, HLD, moderate aortic stenosis, T2DM, COPD, long-term tobacco abuse, RLS, LS as with neurogenic claudication, LOLA not on CPAP, depression with anxiety, GERD who presents to ED via 302 petition by police secondary to visual hallucinations x1 day. Patient is alert and oriented x3 but with strong visual hallucinations that occurred yesterday while at home. Patient felt he saw multiple people in his house, "spraying webs," and also saw a "skinny, unsure of gender, person dressed in blue jeans and a red shirt," in his room. He had 2 loaded guns at bedside prior to going to bed. He denied any suicidal or homicidal ideations but was very frightened of the unknown individuals in house; therefore he called police. Police were unable to find anybody in the home. He was brought to ED on 302 petition. Initially felt to be medically stable but upon further lab evaluation was found to have severe electrolyte derangements and therefore medical admission was warranted. No prior history of psychiatric illness. Does have diagnosis depression with anxiety on epic. 1:1 prn consulted psychiatry correct electrolyte abnormalities, ? playing a role checked vit [id number] 721 (wnl), RPR- negative, TSH - wnl CT head negative hold narcotics, pt denies elicit drug use, drug tox screen negative no s/sx of infection consider neuro eval if sx persist AM 10/06/20 AM, patient agitated, julianne christine was called, patient was placed in restraints, given Zyprexa. Continues to be agitated however/possibly somewhat confused, mumbling. Psychiatry consulted again, Given prolonged QTC, worried about Zyprexa. Per psychiatry, started on 500 IV Depakote/valproic acid, TID and ativan. 10/07 overnight continues to be agitated, required Zyprexa again. head coach received Ativan, then became calm. However some hours later developed frequent apnea and desaturated to 70s percent. He was started on BiPAP and ICU was contacted. Patient was transferred to ICU for further care and treatment. Currently sedated on Precedex drip , plan for LP. 10/08 Pt is awake but somewhat confused but cooperative. Per ICU provider, ok to downgrade from ICU now. LP obtained on 10/07/20. Absence of WBCs in the CSF, not likely meningitis. Recommend to obtain MRI, order CT head CTA head and neck. Continue thiamine and folic acid. Neurology consulted, appreciate their input. Brain MRI ordered Elevated troponin - possibly component of mild CHF exacerbation -CXR w/ pulm. congestion Last echo 05/2020-EF 40 to 45%, left ventricular hypokinesis, moderate aortic valve stenosis, mild AR -received IV lasix 20 on 10/07 -cardiology following Diarrhea pt reports diarrhea x 2 weeks, no other abd sx or signs of infection check stool culture, stool for cdiff likely culprit of hypomag Intermittent LBBB Per EKG on admission, patient has new LBBB Per admitting provider, EKG was discussed prior to official read, and felt as it was not new LBBB Consulted cardiology for official recommendations - noted on previous ECG as well in August 2019 (3) Hypomagnesemia: mag, 0.9 Replace and monitor (4) Hypocalcemia: Calcium 6.8, may be in setting of low mag Obtain vitamin D and PTH levels Received 1 g calcium gluconate in ED Replace and monitor (5) Hyponatremia: Sodium 130 Hold Lasix, although he did receive dose today Serum osm 271, urine osm 127 (low) and urine sodium 30 Received 1 L of IVF in ED Denies any excessive thirst or drinking Repeat sodium improved, also further discussed with nephrology (6) CAD (coronary artery disease): (7) CHF (congestive heart failure): (8) Aortic stenosis: Chronic HFrEF now w/ mild exacerbation Last echo 05/2020-EF 40 to 45%, left ventricular hypokinesis, moderate aortic valve stenosis, mild AR Continue ASA, statin, Imdur, Entresto, metoprolol if pt ok to take PO Held Lasix initially in setting of hyponatremia Daily weights, strict I's and O's Heart healthy diet CXR showing pulm. congestion pt received IV lasix Cardiology following (9) COPD (chronic obstructive pulmonary disease): No acute exacerbation Continue nebs (10) Smoking: Tobacco abuse will nicotine supplementation as patient has prior history of hallucinations with Chantix (11) BPH (benign prostatic hyperplasia): Continue finasteride and Flomax (12) DVT prophylaxis: Lovenox Dispo: Currently in ICU, plan to downgrade to PCU consult case management given 302 petition and possible placement needed Full code PCP: Dr. Junaid Gibbons Admission and Anticipated Discharge Date Admission Date: October 05, 2020 Subjective Patient seen in a follow-up of altered mental status Patient seen and examined in ICU Was on Precedex drip and BiPAP yesterday He is currently awake, and he is not combative, breathing on room air. Per ICU provider, patient safe to be transferred out of ICU. For recommendations from neurology, will try to obtain brain MRI. Patient currently has no complaints, his speech is somewhat slurred, however he has no dentures. He does not seem to be aware of being in the hospital or reasons why. Review of Systems Review of Systems: No complaints at this time, specifically no shortness of breath or chest pain Physical Exam Physical Exam: Constitutional: WD/WN, vitals as above Eyes: PERRL, EOMI, conjunctivae normal, anicteric sclerae ENMT: external ear and nose normal, oropharynx normal Neck: normal visual inspection Respiratory: no respiratory distress, breathing comfortably on RA Cardiovascular: Rate/Rhythm: regular rate Heart Sounds: + murmur (systolic) Chest (Breasts): Chest: normal inspection of chest Gastrointestinal (Abdomen): Inspection/Auscultation: abdomen normal to inspection Percussion/Palpation: abdomen soft; no guarding and abdomen not rigid + bowel sounds Musculoskeletal: Head/Neck/Chest: normocephalic and head atraumatic Skin: + dry skin Neurologic: awake and alert, speech somewhat slurred (pt has no dentures), confused, moves all extremities Psychiatric: pt confused but cooperative Lymphatic: no lymphedema Results & Data Results & Data ([facility]) Vital Signs (Past 12 Hours) Vital Signs Temp Pulse Pulse Resp BP Pulse Ox 10/08/20 08:00 37.9 C H 95 H 24 98 10/08/20 07:52 37.9 C H 94 H 22 165/86 H 97 10/08/20 07:02 93 H 24 93 10/08/20 07:01 93 H 24 93 10/08/20 06:59 37.6 C H 89 21 165/89 H 93 10/08/20 05:52 37.3 C 85 19 139/64 96 10/08/20 04:52 37.2 C 94 H 18 163/73 H 94 10/08/20 03:52 37.3 C 86 19 129/77 98 10/08/20 03:30 88 17 100 10/08/20 03:04 37.4 C 86 16 142/78 H 95 10/08/20 02:54 37.1 C 88 16 161/80 H 99 10/08/20 01:51 37.7 C H 88 16 128/62 93 10/08/20 00:52 38.0 C H 96 H 21 133/65 98 10/08/20 00:00 92 H 10/07/20 23:51 38.2 C H 93 H 18 124/66 100 10/07/20 23:21 38.3 C H 90 16 143/82 H 99 10/07/20 23:10 94 H 19 100 10/07/20 22:52 38.2 C H 96 H 23 170/88 H 100 10/07/20 21:51 37.9 C H 92 H 18 124/65 91 10/07/20 20:51 37.9 C H 94 H 18 117/61 99 Laboratory Results 10/08/20 10/08/20 10/08/20 Range/Units 04:19 04:19 00:21 WBC 9.32 (4.8-10.8) K/uL RBC 4.18 L (4.7-6.1) M/uL Hgb 12.6 L (14.0-18.0) g/dL POC Hgb (14.0-18.0) g/dl Hct 37.7 L (42-52) % POC Hct (42-52) % MCV 90.2 (80-100) fL MCH 30.1 (25-34) pg MCHC 33.4 (32-36) g/dL RDW Std Deviation 51.1 H (36.4-46.3) fL RDW Coeff of Deborah 15.7 H (11.5-14.5) % Plt Count 200 (130-400) K/uL MPV 9.2 (7.4-10.4) fL PT (9.0-12.0) Seconds INR (0.9-1.1) APTT (21.0-31.0) Seconds PTT Ratio POC pH (7.35-7.45) POC pCO2 (35-46) mmHg POC pO2 (80-95) mmHg POC HCO3 (19-24) tj/L POC Total CO2 (24-31) mmol/L POC Base Excess (-9-1.8) tj/L POC ABG O2 Sat (90-95) % POC Sodium (135-144) mmol/L Sodium 144 (136-145) mmol/L POC Potassium (3.3-5.0) mmol/L Potassium 3.8 (3.5-5.1) mmol/L Chloride 110 H (98-107) mmol/L Carbon Dioxide 29 (21-32) mmol/L Anion Gap 5.0 (3-11) BUN 15 (7-18) mg/dl Creatinine 0.81 (0.6-1.4) mg/dl Est Cr Clr Drug Dosing 78.6 ml/min Est GFR ( Amer) 98.7 Est GFR (Non-Af Amer) 85.1 BUN/Creatinine Ratio 18.9 (10-20) Glucose 111 H (70-99) mg/dl POC Glucose (70-99) mg/dl Calcium 7.7 L (8.5-10.1) mg/dl Phosphorus 3.6 (2.5-4.9) mg/dl Magnesium 2.1 (1.8-2.4) mg/dl Total Bilirubin 0.6 (0.2-1) mg/dl AST 48 H (15-37) U/L ALT 33 (12-78) U/L Alkaline Phosphatase 74 (45-117) U/L Ammonia (11-32) umol/L Total Creatine Kinase (39-308) U/L Troponin I 1.520 H* (0-0.045) ng/ml Total Protein 7.2 (6.4-8.2) gm/dl Albumin 3.1 L (3.4-5.0) gm/dl Globulin 4.1 H (2.5-4.0) gm/dl Albumin/Globulin Ratio 0.8 L (0.9-2) Fld Lyme DNA (PCR) Fluid Comment CSF Appearance CSF Color Xanthrochromic CSF WBC (0-5) /uL CSF RBC (0-) /uL CSF Cell Count Tube # CSF Chemistry Tube # CSF Glucose (40-70) mg/dl CSF Lactate (0.6-2.2) mmol/L CSF Total Protein (15-45) mg/dl CSF Lyme IgG (Immblot) CSF Lyme IgG Bands Det CSF Lyme IgM (Immblot) CSF Lyme IgM Bands Det CSF C.neoform/gat PCR (NotDetected) CSF CMV DNA (PCR) (NotDetected) CSF Enterovirus (PCR) (NotDetected) CSF E. coli K1 (PCR) (NotDetected) CSF H. influenzae (PCR) (NotDetected) CSF HSV I (PCR) (NotDetected) CSF HSV II (PCR) (NotDetected) CSF HHV 6 (PCR) (NotDetected) CSF L.monocytogenes PCR (NotDetected) CSF N. meningitidis PCR (NotDetected) CSF Parechovirus (PCR) (NotDetected) CSF S. agalactiae (PCR) (NotDetected) CSF S. pneumoniae (PCR) (NotDetected) CSF VZV DNA (PCR) (NotDetected) Nasal Screen MRSA (PCR) (Negative) Valproic Acid (50-100) mcg/ml Lyme Specimen Source 10/07/20 10/07/20 10/07/20 Range/Units 23:49 23:46 18:12 WBC (4.8-10.8) K/uL RBC (4.7-6.1) M/uL Hgb (14.0-18.0) g/dL POC Hgb 12.6 L (14.0-18.0) g/dl Hct (42-52) % POC Hct 37 L (42-52) % MCV (80-100) fL MCH (25-34) pg MCHC (32-36) g/dL RDW Std Deviation (36.4-46.3) fL RDW Coeff of Deborah (11.5-14.5) % Plt Count (130-400) K/uL MPV (7.4-10.4) fL PT (9.0-12.0) Seconds INR (0.9-1.1) APTT (21.0-31.0) Seconds PTT Ratio POC pH 7.43 (7.35-7.45) POC pCO2 40 (35-46) mmHg POC pO2 114 H (80-95) mmHg POC HCO3 26 H (19-24) tj/L POC Total CO2 28 (24-31) mmol/L POC Base Excess 2.0 H (-9-1.8) tj/L POC ABG O2 Sat 99.0 H (90-95) % POC Sodium 143 (135-144) mmol/L Sodium (136-145) mmol/L POC Potassium 3.9 (3.3-5.0) mmol/L Potassium (3.5-5.1) mmol/L Chloride (98-107) mmol/L Carbon Dioxide (21-32) mmol/L Anion Gap (3-11) BUN (7-18) mg/dl Creatinine (0.6-1.4) mg/dl Est Cr Clr Drug Dosing ml/min Est GFR ( Amer) Est GFR (Non-Af Amer) BUN/Creatinine Ratio (10-20) Glucose (70-99) mg/dl POC Glucose 106 H (70-99) mg/dl Calcium (8.5-10.1) mg/dl Phosphorus (2.5-4.9) mg/dl Magnesium (1.8-2.4) mg/dl Total Bilirubin (0.2-1) mg/dl AST (15-37) U/L ALT (12-78) U/L Alkaline Phosphatase (45-117) U/L Ammonia (11-32) umol/L Total Creatine Kinase (39-308) U/L Troponin I 1.700 H* (0-0.045) ng/ml Total Protein (6.4-8.2) gm/dl Albumin (3.4-5.0) gm/dl Globulin (2.5-4.0) gm/dl Albumin/Globulin Ratio (0.9-2) Fld Lyme DNA (PCR) Fluid Comment CSF Appearance CSF Color Xanthrochromic CSF WBC (0-5) /uL CSF RBC (0-) /uL CSF Cell Count Tube # CSF Chemistry Tube # CSF Glucose (40-70) mg/dl CSF Lactate (0.6-2.2) mmol/L CSF Total Protein (15-45) mg/dl CSF Lyme IgG (Immblot) CSF Lyme IgG Bands Det CSF Lyme IgM (Immblot) CSF Lyme IgM Bands Det CSF C.neoform/gat PCR (NotDetected) CSF CMV DNA (PCR) (NotDetected) CSF Enterovirus (PCR) (NotDetected) CSF E. coli K1 (PCR) (NotDetected) CSF H. influenzae (PCR) (NotDetected) CSF HSV I (PCR) (NotDetected) CSF HSV II (PCR) (NotDetected) CSF HHV 6 (PCR) (NotDetected) CSF L.monocytogenes PCR (NotDetected) CSF N. meningitidis PCR (NotDetected) CSF Parechovirus (PCR) (NotDetected) CSF S. agalactiae (PCR) (NotDetected) CSF S. pneumoniae (PCR) (NotDetected) CSF VZV DNA (PCR) (NotDetected) Nasal Screen MRSA (PCR) (Negative) Valproic Acid (50-100) mcg/ml Lyme Specimen Source 10/07/20 10/07/20 10/07/20 Range/Units 17:10 16:08 16:08 WBC (4.8-10.8) K/uL RBC (4.7-6.1) M/uL Hgb (14.0-18.0) g/dL POC Hgb (14.0-18.0) g/dl Hct (42-52) % POC Hct (42-52) % MCV (80-100) fL MCH (25-34) pg MCHC (32-36) g/dL RDW Std Deviation (36.4-46.3) fL RDW Coeff of Deborah (11.5-14.5) % Plt Count (130-400) K/uL MPV (7.4-10.4) fL PT (9.0-12.0) Seconds INR (0.9-1.1) APTT (21.0-31.0) Seconds PTT Ratio POC pH 7.27 L (7.35-7.45) POC pCO2 61 H (35-46) mmHg POC pO2 110 H (80-95) mmHg POC HCO3 28 H (19-24) tj/L POC Total CO2 30 (24-31) mmol/L POC Base Excess 1.0 (-9-1.8) tj/L POC ABG O2 Sat 97.0 H (90-95) % POC Sodium (135-144) mmol/L Sodium (136-145) mmol/L POC Potassium (3.3-5.0) mmol/L Potassium (3.5-5.1) mmol/L Chloride (98-107) mmol/L Carbon Dioxide (21-32) mmol/L Anion Gap (3-11) BUN (7-18) mg/dl Creatinine (0.6-1.4) mg/dl Est Cr Clr Drug Dosing ml/min Est GFR ( Amer) Est GFR (Non-Af Amer) BUN/Creatinine Ratio (10-20) Glucose (70-99) mg/dl POC Glucose (70-99) mg/dl Calcium (8.5-10.1) mg/dl Phosphorus (2.5-4.9) mg/dl Magnesium (1.8-2.4) mg/dl Total Bilirubin (0.2-1) mg/dl AST (15-37) U/L ALT (12-78) U/L Alkaline Phosphatase (45-117) U/L Ammonia (11-32) umol/L Total Creatine Kinase (39-308) U/L Troponin I (0-0.045) ng/ml Total Protein (6.4-8.2) gm/dl Albumin (3.4-5.0) gm/dl Globulin (2.5-4.0) gm/dl Albumin/Globulin Ratio (0.9-2) Fld Lyme DNA (PCR) Pending Fluid Comment CSF Appearance CSF Color Xanthrochromic CSF WBC (0-5) /uL CSF RBC (0-) /uL CSF Cell Count Tube # CSF Chemistry Tube # CSF Glucose (40-70) mg/dl CSF Lactate (0.6-2.2) mmol/L CSF Total Protein (15-45) mg/dl CSF Lyme IgG (Immblot) CSF Lyme IgG Bands Det CSF Lyme IgM (Immblot) CSF Lyme IgM Bands Det CSF C.neoform/gat PCR Not Detected (NotDetected) CSF CMV DNA (PCR) Not Detected (NotDetected) CSF Enterovirus (PCR) Not Detected (NotDetected) CSF E. coli K1 (PCR) Not Detected (NotDetected) CSF H. influenzae (PCR) Not Detected (NotDetected) CSF HSV I (PCR) Not Detected (NotDetected) CSF HSV II (PCR) Not Detected (NotDetected) CSF HHV 6 (PCR) Not Detected (NotDetected) CSF L.monocytogenes PCR Not Detected (NotDetected) CSF N. meningitidis PCR Not Detected (NotDetected) CSF Parechovirus (PCR) Not Detected (NotDetected) CSF S. agalactiae (PCR) Not Detected (NotDetected) CSF S. pneumoniae (PCR) Not Detected (NotDetected) CSF VZV DNA (PCR) Not Detected (NotDetected) Nasal Screen MRSA (PCR) (Negative) Valproic Acid (50-100) mcg/ml Lyme Specimen Source Pending 10/07/20 10/07/20 10/07/20 Range/Units 16:08 16:08 16:08 WBC (4.8-10.8) K/uL RBC (4.7-6.1) M/uL Hgb (14.0-18.0) g/dL POC Hgb (14.0-18.0) g/dl Hct (42-52) % POC Hct (42-52) % MCV (80-100) fL MCH (25-34) pg MCHC (32-36) g/dL RDW Std Deviation (36.4-46.3) fL RDW Coeff of Deborah (11.5-14.5) % Plt Count (130-400) K/uL MPV (7.4-10.4) fL PT (9.0-12.0) Seconds INR (0.9-1.1) APTT (21.0-31.0) Seconds PTT Ratio POC pH (7.35-7.45) POC pCO2 (35-46) mmHg POC pO2 (80-95) mmHg POC HCO3 (19-24) tj/L POC Total CO2 (24-31) mmol/L POC Base Excess (-9-1.8) tj/L POC ABG O2 Sat (90-95) % POC Sodium (135-144) mmol/L Sodium (136-145) mmol/L POC Potassium (3.3-5.0) mmol/L Potassium (3.5-5.1) mmol/L Chloride (98-107) mmol/L Carbon Dioxide (21-32) mmol/L Anion Gap (3-11) BUN (7-18) mg/dl Creatinine (0.6-1.4) mg/dl Est Cr Clr Drug Dosing ml/min Est GFR ( Amer) Est GFR (Non-Af Amer) BUN/Creatinine Ratio (10-20) Glucose (70-99) mg/dl POC Glucose (70-99) mg/dl Calcium (8.5-10.1) mg/dl Phosphorus (2.5-4.9) mg/dl Magnesium (1.8-2.4) mg/dl Total Bilirubin (0.2-1) mg/dl AST (15-37) U/L ALT (12-78) U/L Alkaline Phosphatase (45-117) U/L Ammonia (11-32) umol/L Total Creatine Kinase (39-308) U/L Troponin I (0-0.045) ng/ml Total Protein (6.4-8.2) gm/dl Albumin (3.4-5.0) gm/dl Globulin (2.5-4.0) gm/dl Albumin/Globulin Ratio (0.9-2) Fld Lyme DNA (PCR) Fluid Comment CSF Appearance Bloody CSF Color Red Xanthrochromic No xanthochromia CSF WBC 0 (0-5) /uL CSF RBC 7650 (0-) /uL CSF Cell Count Tube # 3 CSF Chemistry Tube # 1 CSF Glucose 75 H (40-70) mg/dl CSF Lactate 2.9 H (0.6-2.2) mmol/L CSF Total Protein 407.6 H (15-45) mg/dl CSF Lyme IgG (Immblot) Pending CSF Lyme IgG Bands Det Pending CSF Lyme IgM (Immblot) Pending CSF Lyme IgM Bands Det Pending CSF C.neoform/gat PCR (NotDetected) CSF CMV DNA (PCR) (NotDetected) CSF Enterovirus (PCR) (NotDetected) CSF E. coli K1 (PCR) (NotDetected) CSF H. influenzae (PCR) (NotDetected) CSF HSV I (PCR) (NotDetected) CSF HSV II (PCR) (NotDetected) CSF HHV 6 (PCR) (NotDetected) CSF L.monocytogenes PCR (NotDetected) CSF N. meningitidis PCR (NotDetected) CSF Parechovirus (PCR) (NotDetected) CSF S. agalactiae (PCR) (NotDetected) CSF S. pneumoniae (PCR) (NotDetected) CSF VZV DNA (PCR) (NotDetected) Nasal Screen MRSA (PCR) (Negative) Valproic Acid (50-100) mcg/ml Lyme Specimen Source 10/07/20 10/07/20 10/07/20 Range/Units 12:14 12:11 12:11 WBC (4.8-10.8) K/uL RBC (4.7-6.1) M/uL Hgb (14.0-18.0) g/dL POC Hgb (14.0-18.0) g/dl Hct (42-52) % POC Hct (42-52) % MCV (80-100) fL MCH (25-34) pg MCHC (32-36) g/dL RDW Std Deviation (36.4-46.3) fL RDW Coeff of Deborah (11.5-14.5) % Plt Count (130-400) K/uL MPV (7.4-10.4) fL PT 10.9 (9.0-12.0) Seconds INR 1.1 (0.9-1.1) APTT 25.0 (21.0-31.0) Seconds PTT Ratio 1.0 POC pH 7.31 L (7.35-7.45) POC pCO2 50 H (35-46) mmHg POC pO2 164 H (80-95) mmHg POC HCO3 25 H (19-24) tj/L POC Total CO2 26 (24-31) mmol/L POC Base Excess -1.0 (-9-1.8) tj/L POC ABG O2 Sat 99.0 H (90-95) % POC Sodium (135-144) mmol/L Sodium (136-145) mmol/L POC Potassium (3.3-5.0) mmol/L Potassium (3.5-5.1) mmol/L Chloride (98-107) mmol/L Carbon Dioxide (21-32) mmol/L Anion Gap (3-11) BUN (7-18) mg/dl Creatinine (0.6-1.4) mg/dl Est Cr Clr Drug Dosing ml/min Est GFR ( Amer) Est GFR (Non-Af Amer) BUN/Creatinine Ratio (10-20) Glucose (70-99) mg/dl POC Glucose (70-99) mg/dl Calcium (8.5-10.1) mg/dl Phosphorus (2.5-4.9) mg/dl Magnesium (1.8-2.4) mg/dl Total Bilirubin (0.2-1) mg/dl AST (15-37) U/L ALT (12-78) U/L Alkaline Phosphatase (45-117) U/L Ammonia (11-32) umol/L Total Creatine Kinase (39-308) U/L Troponin I (0-0.045) ng/ml Total Protein (6.4-8.2) gm/dl Albumin (3.4-5.0) gm/dl Globulin (2.5-4.0) gm/dl Albumin/Globulin Ratio (0.9-2) Fld Lyme DNA (PCR) Fluid Comment CSF Appearance CSF Color Xanthrochromic CSF WBC (0-5) /uL CSF RBC (0-) /uL CSF Cell Count Tube # CSF Chemistry Tube # CSF Glucose (40-70) mg/dl CSF Lactate (0.6-2.2) mmol/L CSF Total Protein (15-45) mg/dl CSF Lyme IgG (Immblot) CSF Lyme IgG Bands Det CSF Lyme IgM (Immblot) CSF Lyme IgM Bands Det CSF C.neoform/gat PCR (NotDetected) CSF CMV DNA (PCR) (NotDetected) CSF Enterovirus (PCR) (NotDetected) CSF E. coli K1 (PCR) (NotDetected) CSF H. influenzae (PCR) (NotDetected) CSF HSV I (PCR) (NotDetected) CSF HSV II (PCR) (NotDetected) CSF HHV 6 (PCR) (NotDetected) CSF L.monocytogenes PCR (NotDetected) CSF N. meningitidis PCR (NotDetected) CSF Parechovirus (PCR) (NotDetected) CSF S. agalactiae (PCR) (NotDetected) CSF S. pneumoniae (PCR) (NotDetected) CSF VZV DNA (PCR) (NotDetected) Nasal Screen MRSA (PCR) (Negative) Valproic Acid 34 L (50-100) mcg/ml Lyme Specimen Source 10/07/20 10/07/20 10/07/20 Range/Units 12:11 12:11 11:55 WBC (4.8-10.8) K/uL RBC (4.7-6.1) M/uL Hgb (14.0-18.0) g/dL POC Hgb (14.0-18.0) g/dl Hct (42-52) % POC Hct (42-52) % MCV (80-100) fL MCH (25-34) pg MCHC (32-36) g/dL RDW Std Deviation (36.4-46.3) fL RDW Coeff of Deborah (11.5-14.5) % Plt Count (130-400) K/uL MPV (7.4-10.4) fL PT (9.0-12.0) Seconds INR (0.9-1.1) APTT (21.0-31.0) Seconds PTT Ratio POC pH (7.35-7.45) POC pCO2 (35-46) mmHg POC pO2 (80-95) mmHg POC HCO3 (19-24) tj/L POC Total CO2 (24-31) mmol/L POC Base Excess (-9-1.8) tj/L POC ABG O2 Sat (90-95) % POC Sodium (135-144) mmol/L Sodium 140 (136-145) mmol/L POC Potassium (3.3-5.0) mmol/L Potassium 3.7 (3.5-5.1) mmol/L Chloride 110 H (98-107) mmol/L Carbon Dioxide 23 (21-32) mmol/L Anion Gap 7.0 (3-11) BUN 13 (7-18) mg/dl Creatinine 0.83 (0.6-1.4) mg/dl Est Cr Clr Drug Dosing 79.8 ml/min Est GFR ( Amer) 97.7 Est GFR (Non-Af Amer) 84.3 BUN/Creatinine Ratio 15.1 (10-20) Glucose 120 H (70-99) mg/dl POC Glucose (70-99) mg/dl Calcium 7.5 L (8.5-10.1) mg/dl Phosphorus (2.5-4.9) mg/dl Magnesium (1.8-2.4) mg/dl Total Bilirubin 0.5 (0.2-1) mg/dl AST 57 H (15-37) U/L ALT 31 (12-78) U/L Alkaline Phosphatase 73 (45-117) U/L Ammonia 35.7 H (11-32) umol/L Total Creatine Kinase 1323 H (39-308) U/L Troponin I 1.390 H* (0-0.045) ng/ml Total Protein 7.0 (6.4-8.2) gm/dl Albumin 3.3 L (3.4-5.0) gm/dl Globulin 3.7 (2.5-4.0) gm/dl Albumin/Globulin Ratio 0.9 (0.9-2) Fld Lyme DNA (PCR) Fluid Comment CSF Appearance CSF Color Xanthrochromic CSF WBC (0-5) /uL CSF RBC (0-) /uL CSF Cell Count Tube # CSF Chemistry Tube # CSF Glucose (40-70) mg/dl CSF Lactate (0.6-2.2) mmol/L CSF Total Protein (15-45) mg/dl CSF Lyme IgG (Immblot) CSF Lyme IgG Bands Det CSF Lyme IgM (Immblot) CSF Lyme IgM Bands Det CSF C.neoform/gat PCR (NotDetected) CSF CMV DNA (PCR) (NotDetected) CSF Enterovirus (PCR) (NotDetected) CSF E. coli K1 (PCR) (NotDetected) CSF H. influenzae (PCR) (NotDetected) CSF HSV I (PCR) (NotDetected) CSF HSV II (PCR) (NotDetected) CSF HHV 6 (PCR) (NotDetected) CSF L.monocytogenes PCR (NotDetected) CSF N. meningitidis PCR (NotDetected) CSF Parechovirus (PCR) (NotDetected) CSF S. agalactiae (PCR) (NotDetected) CSF S. pneumoniae (PCR) (NotDetected) CSF VZV DNA (PCR) (NotDetected) Nasal Screen MRSA (PCR) Negative (Negative) Valproic Acid (50-100) mcg/ml Lyme Specimen Source Medications Administered Current Inpatient Medications Acetaminophen (Acetaminophen 325 Mg Tab) 650 mg PO Q4H PRN PRN Reason: Pain or Fever Stop: 11/04/20 12:26 Al Hydrox/Mg Hydrox/Simethicone (Aluminum/Magnesium Susp 30 Ml Udc) 15 ml PO Q4H PRN PRN Reason: Dyspepsia Stop: 11/04/20 12:26 Albuterol (Albut/Ipratrop 3mg/0.5mg Neb 3 Ml Vial) 3 ml INH TID [facility] Stop: 11/04/20 08:59 Last Admin: 10/08/20 06:59 Dose: 3 ml Documented by: Aspirin (Aspirin 81 Mg Ectab) 162 mg PO QAM [facility] Stop: 11/04/20 08:59 Last Admin: 10/07/20 09:35 Dose: Not Given Documented by: Atorvastatin Calcium (Atorvastatin 40 Mg Tab) 80 mg PO HS [facility] Stop: 11/04/20 20:59 Last Admin: 10/07/20 21:42 Dose: Not Given Documented by: Duloxetine HCl (Duloxetine Hcl 60 Mg Cap) 60 mg PO HS [facility] Stop: 11/04/20 20:59 Last Admin: 10/07/20 21:42 Dose: Not Given Documented by: Duloxetine HCl (Duloxetine Hcl 30 Mg Cap) 30 mg PO HS [facility] Stop: 11/04/20 20:59 Last Admin: 10/07/20 21:42 Dose: Not Given Documented by: Finasteride (Finasteride 5 Mg Tab) 5 mg PO QAM [facility] Stop: 11/04/20 08:59 Last Admin: 10/07/20 09:35 Dose: Not Given Documented by: Lorazepam (Ativan) 1 mg in 2 mls @ 2 mls/min IV Q4H PRN PRN Reason: Agitation Stop: 11/05/20 13:31 Last Admin: 10/07/20 07:47 Dose: 2 mls/min Documented by: Valproic Acid 500 mg/ Dextrose 55 mls @ 55 mls/hr IV TID [facility] Stop: 11/05/20 20:59 Last Infusion: 10/07/20 21:03 Dose: Infused Documented by: Thiamine HCl 100 mg/ Syringe 10 mls @ 2 mls/min IV QAM [facility] Stop: 11/06/20 08:59 Last Admin: 10/07/20 09:32 Dose: 2 mls/min Documented by: Folic Acid 1 mg/ Syringe 10 mls @ 5 mls/min IV QAM [facility] Stop: 11/06/20 08:59 Last Admin: 10/07/20 09:32 Dose: 5 mls/min Documented by: Furosemide 20 mg/ Syringe 2 mls @ 4 mls/min IV DAILY [facility] Stop: 11/06/20 11:59 Last Admin: 10/07/20 12:43 Dose: 4 mls/min Documented by: Acyclovir Sodium 650 mg/ (Dextrose) 113 mls @ 100 mls/hr IV Q8H [facility] Stop: 10/17/20 12:14 Last Infusion: 10/08/20 04:58 Dose: Infused Documented by: Dexmedetomidine HCl 200 mcg/ (Sodium Chloride) 50 mls @ 0 mls/hr IV .Q0M [facility]; Protocol Stop: 10/11/20 13:59 Last Admin: 10/07/20 18:31 Dose: Not Given Documented by: Isosorbide Mononitrate (Isosorbide [place] Extended Rel 60 Mg Tabcr) [facility] [place] Stop: 11/04/20 08:59 Last Admin: 10/07/20 09:35 Dose: Not Given Documented by: Loratadine (Loratadine 10 Mg Tab) 10 mg PO DAILY PRN PRN Reason: Allergy Symptoms Stop: 11/04/20 07:31 Magnesium Hydroxide (Magnesium Hydroxide Susp 30 Ml Udc) 30 ml PO Q12H PRN PRN Reason: Constipation Stop: 11/04/20 12:26 Magnesium Oxide (Magnesium Oxide 400 Mg Tab) 400 mg PO BID [facility] Stop: 11/04/20 20:59 Last Admin: 10/07/20 21:43 Dose: Not Given Documented by: Metoprolol Succinate (Metoprolol Succ 25mg Ext Rel Tab) 25 mg PO [facility] Stop: 11/04/20 08:59 Last Admin: 10/07/20 09:36 Dose: Not Given Documented by: Metoprolol Tartrate (Metoprolol Tartrate 1 Mg/Ml Vial) 2.5 mg IV Q6H [facility] Stop: 11/05/20 15:59 Last Admin: 10/08/20 03:50 Dose: 2.5 mg Documented by: Miscellaneous (Remove Nicoderm Patch) 1 ea N/A DAILY@[id number] [facility] Stop: 11/06/20 08:58 Last Admin: 10/08/20 04:06 Dose: 1 ea Documented by: Multivitamins (Multivitamin Tab) 1 [facility] Stop: 11/04/20 08:59 Last Admin: 10/07/20 09:35 Dose: Not Given Documented by: Nicotine (Nicotine 14 Mg/24 Hr Patch) 14 mg TD [facility] Stop: 11/05/20 05:34 Last Admin: 10/07/20 07:56 Dose: 14 mg Documented by: Nicotine Polacrilex (Nicotine Polacrilex 2 Mg Gum) 1 piece MT Q1H PRN PRN Reason: smoking urge Stop: 11/05/20 05:30 Ondansetron HCl (Ondansetron Inj 2 Mg/Ml 2 Ml Vial) 4 mg IV Q6H PRN PRN Reason: Nausea Stop: 11/04/20 12:26 Polyethylene Glycol (Polyethylene (Miralax) 17 Gm Pack) 17 gm PO DAILY PRN PRN Reason: Constipation Stop: 11/04/20 12:26 Potassium Chloride (Potassium Chloride 10 Meq Tabcr) 10 meq PO BID [facility] Stop: 11/04/20 08:59 Last Admin: 10/07/20 21:42 Dose: Not Given Documented by: Ropinirole HCl (Ropinirole Hcl 0.25 Mg Tablet) 0.5 mg PO [facility] Stop: 11/04/20 20:59 Last Admin: 10/07/20 21:43 Dose: Not Given Documented by: Sacubitril/Valsartan (Sacubitril-Valsartan 24-26 Mg Tab) 1 tab PO BID [facility] Stop: 11/04/20 08:59 Last Admin: 10/07/20 21:42 Dose: Not Given Documented by: Tamsulosin HCl (Tamsulosin Hcl 0.4 Mg Cap) 0.4 mg PO [facility] Stop: 11/04/20 20:59 Last Admin: 10/07/20 21:42 Dose: Not Given Documented by: Trazodone HCl (Trazodone Hcl 100 Mg Tab) 50 mg PO [facility] Stop: 11/04/20 20:59 Last Admin: 10/07/20 21:42 Dose: Not Given Documented by: (1) CAD (coronary artery disease) Coronary Disease-Associated Artery/Lesion type: [place] artery [place] vs. transplanted heart: [place] heart Associated angina: unspecified whether angina present Qualified Code(s): I25.10 - Atherosclerotic heart disease of [place] coronary artery without angina pectoris (2) CHF (congestive heart failure) Heart failure chronicity: acute on chronic Heart failure type: combined systolic and diastolic Qualified Code(s): I50.43 - Acute on chronic combined systolic (congestive) and diastolic (congestive) heart failure (3) Aortic stenosis Cardiac valve disease etiology: nonrheumatic Qualified Code(s): I35.0 - Nonrheumatic aortic (valve) stenosis
[2020-10-08] MEDS: VALPROATE SOD 500 MG in DEXTROSE 5% 50 ML IV SCH ×3 (09:06→22:06)
[2020-10-08] MEDS: THIAMINE HCL 100 MG in SYRINGE 9 ML IV SCH (09:07)
[2020-10-08] MEDS: FOLIC ACID 1 MG in SYRINGE 9.8 ML IV SCH (09:07)
[2020-10-08] MEDS: FUROSEMIDE 20 MG in SYRINGE 0 ML IV SCH (09:07)
[2020-10-08] MEDS: NICOTINE 14 MG/24 HR PATCH TD SCH (09:08)
[2020-10-08] MEDS: POTASSIUM CHLORIDE 10 MEQ TABCR PO SCH ×2 (09:09→22:05)
[2020-10-08] MEDS: ASPIRIN 81 MG ECTAB PO SCH (09:09)
[2020-10-08] MEDS: SACUBITRIL-VALSARTAN 24-26 MG TAB PO SCH ×2 (09:09→21:23)
[2020-10-08] MEDS: MULTIVITAMIN TAB PO SCH (09:09)
[2020-10-08] MEDS: ISOSORBIDE MONO EXTENDED REL 60 MG TABCR PO SCH (09:09)
[2020-10-08] MEDS: FINASTERIDE 5 MG TAB PO SCH (09:09)
[2020-10-08] MEDS: MAGNESIUM OXIDE 400 MG TAB PO SCH ×2 (09:09→22:06)
[2020-10-08] MEDS: METOPROLOL SUCC 25MG EXT REL TAB PO SCH (09:09)
--- NOTE | 2020-10-08 11:42 | Billing Data ---
Date of Service October 08, 2020 Coding Level of Care Code 89630 Subseq Hosp Care Lvl 2
--- NOTE | 2020-10-08 11:45 | Cardiology Progress Note ---
Date of Service October 08, 2020 Assessment & Plan (1) Elevated troponin I level: Suspect type II event, demand ischemia in the setting of hypoxemia, known/fixed coronary disease with diagonal branch vessel occlusion per prior catheterization, volume overload/CHF, and sedation. ECG without significant ST changes however, nondiagnostic due to left bundle branch block pattern. Echocardiogram ordered for wall motion assessment. I would not recommend systemic anticoagulation currently. (2) LBBB (left bundle branch block): Intermittent left bundle branch block documented on prior ECG. Specifically, ECG performed on September 12, 2019 at 21:42 is nearly identical to the ECG performed during this admission. Ejection fraction 40-45% per most recent echocardiogram in May. Repeat ECG performed 10/06/2020, 10/07/20 unchanged. (3) Acute heart failure with reduced ejection fraction and diastolic dysfunction: Continue IV Lasix until patient able to resume oral medications. Resume chronic heart failure medications including Entresto, nitrates, and pending speech pathology evaluation. Mild vascular congestion noted on prior x-ray improved per repeat study today. Monitor fluid balance and renal function daily. (4) Aortic stenosis: Moderate per most recent echocardiogram 05/2020. (5) Nonsustained ventricular tachycardia: Increase IV Lopressor to 5 mg every 6 hours. Resume oral metoprolol pending speech pathology evaluation. Replace electrolytes to maintain a serum potassium level greater than 4.0, and a serum magnesium level greater than 2.0. (6) CAD (coronary artery disease): Most recent cardiac catheterization performed 09/12/2019 due to elevated troponins and congestive heart failure. First diagonal branch occlusion visualized filling late via left to left collaterals, otherwise, no significant obstructive coronary disease. (7) Electrolyte and fluid disorder: Per nephrology. Normal electrolytes today per a.m. labs. Admission and Anticipated Discharge Date Admission Date: October 05, 2020 Subjective Patient seen and examined the bedside. More alert and appropriate today. Able to follow commands and answer some questions appropriately. No longer combative. BiPAP discontinued. Oxygen saturation adequate on room air. Troponins assessed yesterday and found to be mildly elevated after patient's hypoxic and unresponsive episode. He adamantly denies any chest discomfort although poor historian. Denies any chest pain or shortness of breath prior to hospitalization. Fluid balance -1228 cc with IV Lasix. Renal function remains stable. He is not receiving oral medications due to possible swallowing dysfunction/aspiration. Speech medicine consulted. 4 beat lizzie of nons ustained VT recorded. Electrolytes stable today. Review of Systems Review of Systems: All systems reviewed & are unremarkable except as noted in Subjective Physical Exam Constitutional: + obese and + disheveled; no acute distress and not combative Eyes: + abnormal pupil size (Constricted pupils bilaterally, although, reactive) Respiratory: no respiratory distress and no labored breathing Auscultation: no crackles, no rales, no rhonchi and no wheezes Cardiovascular: Rate/Rhythm: regular rate and regular rhythm Heart Sounds: normal S1, normal S2 and + murmur (3/6 mid to late peaking medium to high- pitched systolic ejection murmur.) Vessels: no JVD Extremities: no edema Gastrointestinal (Abdomen): Inspection/Auscultation: abdomen normal to inspection and normal bowel sounds; abdomen not distended Percussion/Palpation: abdomen nontender, no guarding and abdomen not rigid Neurologic: moves all extremities and + focal motor deficit Motor/Sensory: no tremor Psychiatric: Orientation: alert and cooperative Results & Data ([facility]) Vital Signs (Past 12 Hours) Vital Signs Temp Pulse Pulse Pulse Resp BP BP 10/08/20 10:54 36.8 C 81 22 126/71 10/08/20 09:09 101 H 159/96 H 10/08/20 08:00 37.9 C H 95 H 24 10/08/20 07:52 37.9 C H 94 H 22 165/86 H 10/08/20 07:02 93 H 24 10/08/20 07:01 93 H 24 10/08/20 06:59 37.6 C H 89 21 165/89 H 10/08/20 05:52 37.3 C 85 19 139/64 10/08/20 04:52 37.2 C 94 H 18 163/73 H 10/08/20 03:52 37.3 C 86 19 129/77 10/08/20 03:30 88 17 10/08/20 03:04 37.4 C 86 16 142/78 H 10/08/20 02:54 37.1 C 88 16 161/80 H 10/08/20 01:51 37.7 C H 88 16 128/62 10/08/20 00:52 38.0 C H 96 H 21 133/65 10/08/20 00:00 92 H 10/07/20 23:51 38.2 C H 93 H 18 124/66 Pulse Ox 10/08/20 10:54 92 10/08/20 09:09 10/08/20 08:00 98 10/08/20 07:52 97 10/08/20 07:02 93 10/08/20 07:01 93 10/08/20 06:59 93 10/08/20 05:52 96 10/08/20 04:52 94 10/08/20 03:52 98 10/08/20 03:30 100 10/08/20 03:04 95 10/08/20 02:54 99 10/08/20 01:51 93 10/08/20 00:52 98 10/08/20 00:00 10/07/20 23:51 100 (1) Aortic stenosis Cardiac valve disease etiology: nonrheumatic Qualified Code(s): I35.0 - Nonrheumatic aortic (valve) stenosis (2) CAD (coronary artery disease) Coronary Disease-Associated Artery/Lesion type: [place] artery [place] vs. transplanted heart: [place] heart Associated angina: unspecified whether angina present Qualified Code(s): I25.10 - Atherosclerotic heart disease of [place] coronary artery without angina pectoris
--- NOTE | 2020-10-08 11:59 | Magnetic Resonance Report ---
Brain MRI WITHOUT CONTRAST HISTORY: Altered mental status. Visual hallucinations. TECHNIQUE: Multiplanar multisequence MRI of the brain was performed without the use of contrast. COMPARISON STUDY: Head CT 10/05/2020. FINDINGS: Significant motion artifact resulting in suboptimal evaluation of the brain. There is a 2 c m hypointense focus within the right anterior temporal lobe with associated encephalomalacia. This benoit ggests old hemorrhage in the setting of prior trauma or an old infarct. Evidence for bilateral lens r eplacement. Small retention cyst within the left maxillary sinus. The mastoid air cells are clear. Th e major vascular flow voids at the skull base are well-maintained. The ventricles and sulci demonstra te mild age-related involutional changes. Periventricular white matter T2 hyperintensity is nonspecif ic but favors mild microvascular ischemic change. No definite mass, acute hematoma, midline shift. IMPRESSION: 1. Suboptimal study due to motion artifact. No definite acute intracranial abnormality. 2. A 2 cm focus of encephalomalacia with associated hypointense signal suggesting hemosiderin. This i s likely due to an old infarct or old trauma. ACT 112: Negative or not required by law. Electronically signed by: Chandu Bone M.D. 10/08/2020 11:57 AM
[2020-10-08] MEDS: DOXYCYCLINE HYCLATE 100 MG in DEXTROSE 5% 100 ML IV SCH ×2 (12:33→21:25)
[2020-10-08] MEDS: cefTRIAXone SODIUM 2,000 MG in DEXTROSE 5% 50 ML IV SCH (12:39)
--- NOTE | 2020-10-08 13:20 | Neurology Progress Note ---
Date of Service October 08, 2020 Assessment & Plan (1) Altered mental status: 1. LP done under fluro - labs pending glucose normal - no revealing findings thus far 2. MRI no new stroke old stroke or trauma- more likely 3. continue to monitory but significant improvement since yesterday 4. continue antibiotic and taper to cultures. 5. EEG - generalize slowing 6. further evaluation of dementia as outpatient will sign off for now and follow up in 4-6 weeks in neurlogy Jenae Chase [facility] (2) Acute hypoxemic respiratory failure: 1. doing well on room air 2. CHF vs pneumonia vs meningitis Admission and Anticipated Discharge Date Admission Date: October 05, 2020 Supervising Physician Co-Signing Physician Notes Patient was seen and examined. Sitter at bedside. PAtient is awake and conversive. He is not oriented to why he is here and amnestic to earlier events. He lives alone. He is oriented to age and following commands. LP results reviewed and consistent with traumatic tap. I do not believe this patient has meningitis or encephalitis. Paranoid delusions in this age group may be suggestive of FTD. Agree with use of Valproic acid as mood stabilizer. QTC>500 so antipsychotic medications are limited. Ok to defer on any additional neurological testing at this time. May benefit from rehab. Will need to follow up with psych and Neuro as outpatient. Justin Knight is a 79 year old male with PMH- chronic HFrEF, CAD, HTN, HLD, moderate aortic stenosis, DM2, COPD, tobacco abuse, RLS, LS as with neurogenic claudication, LOLA not on CPAP, depression with anxiety, GERD who presented to [facility] ED via 302 petition by police secondary to visual hallucinations x1 day on 10/05/2020. He had strong visual hallucinations while at home. There were multiple people in his house, "spraying webs," and also saw a "skinny, unsure of gender, person dressed in blue jeans and a red shirt," in his room. He had 2 loaded guns at bedside prior to going to bed because he was very frightened of the unknown individuals in house; he called police. Police were unable to find anybody in the home. He was brought to ED on 302 petition. He was thought to be medically stable but lab evaluation was found to have severe electrolyte derangements and therefore medical admission was warranted. He was transferred to ICU for respiratory depression. He had a LP under fluoro and 30 bipap due to CO2 retention. Today his was transferred to the floor. He is asking for food and drink specifically coffee and diet pepsi. he is complaining of shoulder pain but that is not new and right knee pain which is not new. denies CP, SOB, abdominal pain, one sided weakness, numbness tingling, vision changes. Review of Systems Review of Systems: All systems reviewed & are unremarkable except as noted in HPI & below Physical Exam Physical Exam: Physical Exam: Constitutional: appearance over nourished, sitting up in bed Ears, Nose, Mouth and Throat: mucous membranes moist, no injection and skin normal, eyes normal Cardiovascular: RRR systolic murmer Respiratory: normal respiratory effort Musculoskeletal: no peripheral edema Skin: no stigmata of neurocutaneous disease noted and normal and intact Eyes: miotic pupils EOMI NEUROLOGIC EXAMINATION: Mental status: oriented to person, 2020, can repeat no ifs ands or buts, repeats flag tree ball but can only recall flag, know ring, thumb Cranial Nerves smile eye brow raise symmetric Reflexes: Deep tendon reflexes decreased and neutral toes Sensory: intact to light and cool touch Coordination: finger to nose no bipass Gait/Stance: sitting up in bed, gait not assessed Motor: follow commands Strength: 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 hip flex right 4+/5 restricted by pain in knee, left 5/5 Results & Data ([facility]) Vital Signs (Past 12 Hours) Vital Signs Temp Pulse Pulse Pulse Resp BP BP 10/08/20 12:53 36.7 C 90 18 151/60 H 10/08/20 12:48 90 151/60 H 10/08/20 10:54 36.8 C 81 22 10/08/20 09:09 101 H 159/96 H 10/08/20 08:00 37.9 C H 95 H 24 10/08/20 07:52 37.9 C H 94 H 22 165/86 H 10/08/20 07:02 93 H 24 10/08/20 07:01 93 H 24 10/08/20 06:59 37.6 C H 89 21 165/89 H 10/08/20 05:52 37.3 C 85 19 139/64 10/08/20 04:52 37.2 C 94 H 18 163/73 H 10/08/20 03:52 37.3 C 86 19 129/77 10/08/20 03:30 88 17 10/08/20 03:04 37.4 C 86 16 142/78 H 10/08/20 02:54 37.1 C 88 16 161/80 H 10/08/20 01:51 37.7 C H 88 16 128/62 BP Pulse Ox 10/08/20 12:53 93 10/08/20 12:48 10/08/20 10:54 126/71 92 10/08/20 09:09 10/08/20 08:00 98 10/08/20 07:52 97 10/08/20 07:02 93 10/08/20 07:01 93 10/08/20 06:59 93 10/08/20 05:52 96 10/08/20 04:52 94 10/08/20 03:52 98 10/08/20 03:30 100 10/08/20 03:04 95 10/08/20 02:54 99 10/08/20 01:51 93 Laboratory Results Abnormal lab results 10/07/20 10/07/20 10/07/20 Range/Units 12:11 16:08 16:08 RBC (4.7-6.1) M/uL Hgb (14.0-18.0) g/dL POC Hgb (14.0-18.0) g/dl Hct (42-52) % POC Hct (42-52) % RDW Std Deviation (36.4-46.3) fL RDW Coeff of Deborah (11.5-14.5) % POC pH (7.35-7.45) POC pCO2 (35-46) mmHg POC pO2 (80-95) mmHg POC HCO3 (19-24) tj/L POC Base Excess (-9-1.8) tj/L POC ABG O2 Sat (90-95) % Chloride 110 H (98-107) mmol/L Glucose 120 H (70-99) mg/dl POC Glucose (70-99) mg/dl Calcium 7.5 L (8.5-10.1) mg/dl AST 57 H (15-37) U/L Total Creatine Kinase 1323 H (39-308) U/L Troponin I 1.390 H* (0-0.045) ng/ml Albumin 3.3 L (3.4-5.0) gm/dl Globulin (2.5-4.0) gm/dl Albumin/Globulin Ratio (0.9-2) CSF Glucose 75 H (40-70) mg/dl CSF Lactate 2.9 H (0.6-2.2) mmol/L CSF Total Protein 407.6 H (15-45) mg/dl 10/07/20 10/07/20 10/07/20 Range/Units 17:10 18:12 23:46 RBC (4.7-6.1) M/uL Hgb (14.0-18.0) g/dL POC Hgb (14.0-18.0) g/dl Hct (42-52) % POC Hct (42-52) % RDW Std Deviation (36.4-46.3) fL RDW Coeff of Deborah (11.5-14.5) % POC pH 7.27 L (7.35-7.45) POC pCO2 61 H (35-46) mmHg POC pO2 110 H (80-95) mmHg POC HCO3 28 H (19-24) tj/L POC Base Excess (-9-1.8) tj/L POC ABG O2 Sat 97.0 H (90-95) % Chloride (98-107) mmol/L Glucose (70-99) mg/dl POC Glucose 106 H (70-99) mg/dl Calcium (8.5-10.1) mg/dl AST (15-37) U/L Total Creatine Kinase (39-308) U/L Troponin I 1.700 H* (0-0.045) ng/ml Albumin (3.4-5.0) gm/dl Globulin (2.5-4.0) gm/dl Albumin/Globulin Ratio (0.9-2) CSF Glucose (40-70) mg/dl CSF Lactate (0.6-2.2) mmol/L CSF Total Protein (15-45) mg/dl 10/07/20 10/08/20 10/08/20 Range/Units 23:49 00:21 04:19 RBC (4.7-6.1) M/uL Hgb (14.0-18.0) g/dL POC Hgb 12.6 L (14.0-18.0) g/dl Hct (42-52) % POC Hct 37 L (42-52) % RDW Std Deviation (36.4-46.3) fL RDW Coeff of Deborah (11.5-14.5) % POC pH (7.35-7.45) POC pCO2 (35-46) mmHg POC pO2 114 H (80-95) mmHg POC HCO3 26 H (19-24) tj/L POC Base Excess 2.0 H (-9-1.8) tj/L POC ABG O2 Sat 99.0 H (90-95) % Chloride 110 H (98-107) mmol/L Glucose 111 H (70-99) mg/dl POC Glucose (70-99) mg/dl Calcium 7.7 L (8.5-10.1) mg/dl AST 48 H (15-37) U/L Total Creatine Kinase (39-308) U/L Troponin I 1.520 H* (0-0.045) ng/ml Albumin 3.1 L (3.4-5.0) gm/dl Globulin 4.1 H (2.5-4.0) gm/dl Albumin/Globulin Ratio 0.8 L (0.9-2) CSF Glucose (40-70) mg/dl CSF Lactate (0.6-2.2) mmol/L CSF Total Protein (15-45) mg/dl 10/08/20 Range/Units 04:19 RBC 4.18 L (4.7-6.1) M/uL Hgb 12.6 L (14.0-18.0) g/dL POC Hgb (14.0-18.0) g/dl Hct 37.7 L (42-52) % POC Hct (42-52) % RDW Std Deviation 51.1 H (36.4-46.3) fL RDW Coeff of Deborah 15.7 H (11.5-14.5) % POC pH (7.35-7.45) POC pCO2 (35-46) mmHg POC pO2 (80-95) mmHg POC HCO3 (19-24) tj/L POC Base Excess (-9-1.8) tj/L POC ABG O2 Sat (90-95) % Chloride (98-107) mmol/L Glucose (70-99) mg/dl POC Glucose (70-99) mg/dl Calcium (8.5-10.1) mg/dl AST (15-37) U/L Total Creatine Kinase (39-308) U/L Troponin I (0-0.045) ng/ml Albumin (3.4-5.0) gm/dl Globulin (2.5-4.0) gm/dl Albumin/Globulin Ratio (0.9-2) CSF Glucose (40-70) mg/dl CSF Lactate (0.6-2.2) mmol/L CSF Total Protein (15-45) mg/dl Diagnostic Findings MRI brain- Suboptimal study due to motion artifact. No definite acute intracranial abnormality. A 2 cm focus of encephalomalacia with associated hypointense signal suggesting hemosiderin. This is likely due to an old infarct or old trauma. CXR-Stable mild cardiomegaly. Interval improvement in the pulmonary vascular congestion and bibasilar airspace opacities.
--- NOTE | 2020-10-08 14:09 | Communication Note ---
Date of Service: October 08, 2020 Psychiatric Consultation-Liaison Service has continued to follow patient's case. Pt's presentation is most consistent with agitated delirium. Onset was acute in nature and visual hallucinations are more consistent with delirium or other organic etiology than with a primary psychiatric disorder. Collateral information was obtained from the patient's granddaughter who indicated that the patient does not have a history of treatment for any psychiatric conditions (patient had reported duloxetine was for pain management, which is certainly reasonable). She admitted that his behavior at time of presentation was very unusual for him, that he is not regularly reporting "seeing things" at home and is not generally agitated or harsh in nature. She denies a notable decline in patient's memory or cognitive status and admits "he remembers things well and reminds me of things." She did indicate that his sleep is a concern and that he has had 6-7 incidents of falling out of bed in the last week alone. Pt is not on a 302 warrant or commitment (has only a 302 petitioning statement). As his behavior is most likely related to acute delirium and not a primary psychiatric condition, it seems most appropriate to continue to treat patient's delirium and utilize frequent reorientation and other behavioral strategies. He does not meet commitment criteria for a 302 inpatient psychiatric admission, and it is suggested patient and family be involved in discussing a safe and appropriate discharge plan as patient approaches medical stability. Helpful Delirium Interventions - Regular review of potential physiological contributors (routine labs, medication review, ensure nutrition/hydration) - as a reminder, elements of delirium can continue for weeks or even months after the "cause" has been treated - Maintain healthy sleep/wake cycles - offer ear plugs, limit daytime napping, ample light during daytime hours, keep room dark and quiet at night - Address sensory impairments and pain - ensure access to hearing aids/glasses, active pain monitoring - Facilitate mobility and physical activity during the day - out of bed daily or as often as possible - Provide cognitive and environmental stimulation - frequent orientation to person/place/time/event, update orientation board, encourage use of familiar personal items, stable daily routine -regular MSE at various times during day - Routine education about delirium - provide education to family/intermediate staff - Judicious use of psychotropic medications - use of neuroleptics should be minimized only to situations in which patient is demonstrating behavior suggestive of risk of harm to self or others (agitation/aggression, not maintaining necessary IV sites, etc) Article Reference: Lincoln HINTON, Debby NM, Evelyne A, Janneth O, Cassia KOHLER. Responding to Ten Common Delirium Misconceptions With Best Evidence: An Educational Review for Clinicians. J Neuropsychiatry Clin Neurosci. 2018;30(1):51-57. doi:[email or web address]
[2020-10-08] MEDS: DULoxetine HCL 60 MG CAP PO SCH (21:19)
[2020-10-08] MEDS: traZODone HCL 100 MG TAB PO SCH (21:20)
[2020-10-08] MEDS: rOPINIRole HCL 0.25 MG TABLET PO SCH (21:20)
[2020-10-08] MEDS: TAMSULOSIN HCL 0.4 MG CAP PO SCH (21:21)
[2020-10-08] MEDS: DULoxetine HCL 30 MG CAP PO SCH (21:22)
[2020-10-08] MEDS: ATORVASTATIN 40 MG TAB PO SCH (21:23)
[2020-10-09] MEDS: METOPROLOL TARTRATE 1 MG/ML VIAL IV SCH (05:28)
[2020-10-09 06:28] LABS: Hematocrit (blood only) 36.6 % (42-52); Hemoglobin 12.6 g/dL (14.0-18.0); Mean Corpuscular Hemoglobin 30.2 pg (25-34); Mean Corpuscular Hgb Conc 34.4 g/dL (32-36); Mean Corpuscular Volume 87.8 fL (80-100); Mean Platelet Volume 9.5 fL (7.4-10.4); Platelet Count 204 K/uL (130-400); RDW Coefficient of Variation 15.6 % (11.5-14.5); RDW Standard Deviation 49.4 fL (36.4-46.3); Red Blood Count 4.17 M/uL (4.7-6.1); White Blood Count 7.54 K/uL (4.8-10.8)
[2020-10-09 06:46] LABS: BUN Creatinine Ratio 26.9 (10-20); Creatinine Clr Calc Pharmacy 61.5 ml/min; Est GFR (African American) 79.3; Est GFR (Non-African American) 68.4; Magnesium 1.9 mg/dl (1.8-2.4); Potassium 3.7 mmol/L (3.5-5.1)
[2020-10-09 07:07] LABS: Phosphorus 2.4 mg/dl (2.5-4.9)
[2020-10-09] MEDS: ALBUT/IPRATROP 3MG/0.5MG NEB 3 ML VIAL INH SCH ×3 (07:16→19:20)
--- NOTE | 2020-10-09 08:00 | Hospitalist Progress Note ---
Date of Service October 09, 2020 Assessment & Plan (1) Visual hallucination: (2) Paranoid delusion: This is a 79-year-old male who has significant past medical history of chronic HFrEF, CAD, HTN, HLD, moderate aortic stenosis, T2DM, COPD, long-term tobacco abuse, RLS, LS as with neurogenic claudication, LOLA not on CPAP, depression with anxiety, GERD who presents to ED via 302 petition by police secondary to visual hallucinations x1 day. Patient is alert and oriented x3 but with strong visual hallucinations that occurred yesterday while at home. Patient felt he saw multiple people in his house, "spraying webs," and also saw a "skinny, unsure of gender, person dressed in blue jeans and a red shirt," in his room. He had 2 loaded guns at bedside prior to going to bed. He denied any suicidal or homicidal ideations but was very frightened of the unknown individuals in house; therefore he called police. Police were unable to find anybody in the home. He was brought to ED on 302 petition. Initially felt to be medically stable but upon further lab evaluation was found to have severe electrolyte derangements and therefore medical admission was warranted. No prior history of psychiatric illness. Does have diagnosis depression with anxiety on epic. 1:1 prn consulted psychiatry correct electrolyte abnormalities, ? playing a role checked vit [id number] 721 (wnl), RPR- negative, TSH - wnl CT head negative hold narcotics, pt denies elicit drug use, drug tox screen negative no s/sx of infection, blood cultx - negative consider neuro eval if sx persist AM 10/06/20 AM, patient agitated, julianne christine was called, patient was placed in restraints, given Zyprexa. Continues to be agitated however/possibly somewhat confused, mumbling. Psychiatry consulted again, Given prolonged QTC, worried about Zyprexa. Per psychiatry, started on 500 IV Depakote/valproic acid, TID and ativan. 10/07 overnight continues to be agitated, required Zyprexa again. 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 However some hours later developed frequent apnea and desaturated to 70s percent. He was started on BiPAP and ICU was contacted. Patient was transferred to ICU for further care and treatment. Currently sedated on Precedex drip , plan for LP. 10/08 Pt is awake but somewhat confused but cooperative. Per ICU provider, ok to downgrade from ICU now. LP obtained on 10/07/20. Absence of WBCs in the CSF, not likely meningitis. Recommend to obtain MRI, order CT head CTA head and neck. Continue thiamine and folic acid. Neurology consulted, appreciate their input. Brain MRI ordered 10/09 Patient sitting up in the chair, in no acute distress, cooperative, answering questions appropriately. However he does insist on seeing people in his house. LP consistent with traumatic tap. CSF cultx - negative. CSF Viral panel- negative. MRI does not show any new stroke, possibly old stroke. Neurology consulted, not likely meningitis or encephalitis. Recommend to continue valproic acid/Depakote for mood stabilization. Likely secondary to frontotemporal dementia. Patient also seen by psychiatry, feel that patient had delirium. Follow-up with psychiatry and neurology. Recommendations for delirium interventions noted. Infectious etiology seems to be ruled out, will obtain procalcitonin before DCing Abx Elevated troponin - demand ischemia in the setting of hypoxemia, mild CHF exacerbation, no significant ECG changes - pt denies any chest pain however was sedated previously Acute heart failure with reduced ejection fraction and diastolic dysfunction -CXR w/ pulm. congestion, proBNP elevated Last echo 05/2020-EF 40 to 45%, left ventricular hypokinesis, moderate aortic valve stenosis, mild AR -received daily IV lasix 20 since 10/07 -pt was NPO d/t confusion/ sedation , now PO meds restarted -repeat CXR much improved -Current echo shows no significant change from previous. LV systolic function mildly reduced. EF 40 to 45%. Moderate concentric LVH. Aortic valve is moderately calcified. Moderate valvular aortic stenosis. Mild aortic regurg. Mild to moderate mitral regurg. -Cardiology following Diarrhea pt reports diarrhea x 2 weeks, no other abd sx or signs of infection check stool culture, stool for cdiff likely culprit of hypomag Intermittent LBBB Per EKG on admission, patient has new LBBB Per admitting provider, EKG was discussed prior to official read, and felt as it was not new LBBB Consulted cardiology for official recommendations - noted on previous ECG as well in August 2019 (3) Hypomagnesemia: mag, 0.9 Replace and monitor (4) Hypocalcemia: Calcium 6.8, may be in setting of low mag Obtain vitamin D and PTH levels Received 1 g calcium gluconate in ED Replace and monitor (5) Hyponatremia: Sodium 130 Hold Lasix, although he did receive dose today Serum osm 271, urine osm 127 (low) and urine sodium 30 Received 1 L of IVF in ED Denies any excessive thirst or drinking Repeat sodium improved, also further discussed with nephrology (6) CAD (coronary artery disease): (7) CHF (congestive heart failure): (8) Aortic stenosis: Chronic HFrEF now w/ mild exacerbation Last echo 05/2020-EF 40 to 45%, left ventricular hypokinesis, moderate aortic valve stenosis, mild AR Continue ASA, statin, Imdur, Entresto, metoprolol if pt ok to take PO Held Lasix initially in setting of hyponatremia Daily weights, strict I's and O's Heart healthy diet CXR showing pulm. congestion pt received IV lasix Cardiology following (9) COPD (chronic obstructive pulmonary disease): No acute exacerbation Continue nebs (10) Smoking: Tobacco abuse will nicotine supplementation as patient has prior history of hallucinations with Chantix (11) BPH (benign prostatic hyperplasia): Continue finasteride and Flomax (12) DVT prophylaxis: Lovenox Dispo: PCU consult case management given 302 petition and possible placement needed Full code PCP: Dr. Junaid Gibbons Admission and Anticipated Discharge Date Admission Date: October 05, 2020 Subjective Patient seen in a follow-up of altered mental status Was on Precedex drip and BiPAP in ICU Now in PCU, currently awake, and he is not combative, breathing on room air. He is sitting up in chair answering questions appropriately, however he still thinks that there were certainly people there in his house. No chest pain, shortness of breath, abdominal pain. Reports good appetite. PT/OT ordered CM aware Review of Systems Review of Systems: All systems reviewed & are unremarkable except as noted in HPI & below Constitutional: no fever and no chills Respiratory: no cough and no dyspnea Cardiovascular: no chest pain and no palpitations Gastrointestinal: no abdominal pain, no vomiting and no hematemesis Physical Exam Constitutional: WD/WN, vitals as above Eyes: PERRL, conjunctivae normal, anicteric sclerae ENMT: external ear and nose normal, oropharynx normal Neck: normal visual inspection Respiratory: normal respiratory effort, lungs clear to auscultation no respiratory distress and no labored breathing Auscultation: no wheezes Cardiovascular: Rate/Rhythm: regular rate Heart Sounds: + murmur (systolic) Chest (Breasts): Chest: normal inspection of chest Gastrointestinal (Abdomen): Inspection/Auscultation: abdomen normal to inspection Percussion/Palpation: abdomen soft; no guarding and abdomen not rigid Musculoskeletal: Head/Neck/Chest: normocephalic and head atraumatic Skin: + dry skin Neurologic: PERRL, EOMI, accommodation nl, no face palsy, no dysarthria moves all extremities Psychiatric: A+Ox3, euthymic affect (however insists that there were ppl in his house) Lymphatic: no lymphedema Results & Data Results & [facility] ([facility]) Vital Signs (Past 12 Hours) Vital Signs Temp Pulse Pulse Pulse Resp BP BP 10/09/20 07:25 36.7 C 76 19 104/63 10/09/20 07:16 85 18 10/09/20 05:28 78 129/81 10/09/20 04:20 36.2 C L 78 19 129/81 10/09/20 00:00 89 10/08/20 23:16 92 H 100/61 10/08/20 22:48 36.9 C 92 H 20 100/61 Pulse Ox 10/09/20 07:25 93 10/09/20 07:16 94 10/09/20 05:28 10/09/20 04:20 95 10/09/20 00:00 10/08/20 23:16 10/08/20 22:48 92 Laboratory Results 10/09/20 10/09/20 10/08/20 Range/Units 06:15 06:15 20:39 WBC 7.54 (4.8-10.8) K/uL RBC 4.17 L (4.7-6.1) M/uL Hgb 12.6 L (14.0-18.0) g/dL Hct 36.6 L (42-52) % MCV 87.8 (80-100) fL MCH 30.2 (25-34) pg MCHC 34.4 (32-36) g/dL RDW Std Deviation 49.4 H (36.4-46.3) fL RDW Coeff of Deborah 15.6 H (11.5-14.5) % Plt Count 204 (130-400) K/uL MPV 9.5 (7.4-10.4) fL Sodium 139 (136-145) mmol/L Potassium 3.7 (3.5-5.1) mmol/L Chloride 105 (98-107) mmol/L Carbon Dioxide 25 (21-32) mmol/L Anion Gap 9.0 (3-11) BUN 28 H D (7-18) mg/dl Creatinine 1.04 (0.6-1.4) mg/dl Est Cr Clr Drug Dosing 61.5 ml/min Est GFR ( Amer) 79.3 Est GFR (Non-Af Amer) 68.4 BUN/Creatinine Ratio 26.9 H (10-20) Glucose 100 H (70-99) mg/dl POC Glucose 85 (70-99) mg/dl Calcium 8.0 L (8.5-10.1) mg/dl Phosphorus 2.4 L D (2.5-4.9) mg/dl Magnesium 1.9 (1.8-2.4) mg/dl Total Bilirubin (0.2-1) mg/dl AST (15-37) U/L ALT (12-78) U/L Alkaline Phosphatase (45-117) U/L Total Creatine Kinase (39-308) U/L Troponin I (0-0.045) ng/ml Total Protein (6.4-8.2) gm/dl Albumin (3.4-5.0) gm/dl Globulin (2.5-4.0) gm/dl Albumin/Globulin Ratio (0.9-2) 10/08/20 10/07/20 Range/Units 16:13 12:11 WBC (4.8-10.8) K/uL RBC (4.7-6.1) M/uL Hgb (14.0-18.0) g/dL Hct (42-52) % MCV (80-100) fL MCH (25-34) pg MCHC (32-36) g/dL RDW Std Deviation (36.4-46.3) fL RDW Coeff of Deborah (11.5-14.5) % Plt Count (130-400) K/uL MPV (7.4-10.4) fL Sodium 140 (136-145) mmol/L Potassium 3.7 (3.5-5.1) mmol/L Chloride 110 H (98-107) mmol/L Carbon Dioxide 23 (21-32) mmol/L Anion Gap 7.0 (3-11) BUN 13 (7-18) mg/dl Creatinine 0.83 (0.6-1.4) mg/dl Est Cr Clr Drug Dosing 79.8 ml/min Est GFR ( Amer) 97.7 Est GFR (Non-Af Amer) 84.3 BUN/Creatinine Ratio 15.1 (10-20) Glucose 120 H (70-99) mg/dl POC Glucose 151 H (70-99) mg/dl Calcium 7.5 L (8.5-10.1) mg/dl Phosphorus (2.5-4.9) mg/dl Magnesium (1.8-2.4) mg/dl Total Bilirubin 0.5 (0.2-1) mg/dl AST 57 H (15-37) U/L ALT 31 (12-78) U/L Alkaline Phosphatase 73 (45-117) U/L Total Creatine Kinase 1323 H (39-308) U/L Troponin I 1.390 H* (0-0.045) ng/ml Total Protein 7.0 (6.4-8.2) gm/dl Albumin 3.3 L (3.4-5.0) gm/dl Globulin 3.7 (2.5-4.0) gm/dl Albumin/Globulin Ratio 0.9 (0.9-2) Medications Administered Current Inpatient Medications Acetaminophen (Acetaminophen 325 Mg Tab) 650 mg PO Q4H PRN PRN Reason: Pain or Fever Stop: 11/04/20 12:26 Last Admin: 10/08/20 23:16 Dose: 650 mg Documented by: Al Hydrox/Mg Hydrox/Simethicone (Aluminum/Magnesium Susp 30 Ml Udc) 15 ml PO Q4H PRN PRN Reason: Dyspepsia Stop: 11/04/20 12:26 Albuterol (Albut/Ipratrop 3mg/0.5mg Neb 3 Ml Vial) 3 ml INH TID [facility] Stop: 11/04/20 08:59 Last Admin: 10/09/20 07:16 Dose: 3 ml Documented by: Aspirin (Aspirin 81 Mg Ectab) 162 mg PO QAM [facility] Stop: 11/04/20 08:59 Last Admin: 10/08/20 09:09 Dose: Not Given Documented by: Atorvastatin Calcium (Atorvastatin 40 Mg Tab) 80 mg PO [facility] Stop: 11/04/20 20:59 Last Admin: 10/08/20 21:23 Dose: 80 mg Documented by: Duloxetine HCl (Duloxetine Hcl 60 Mg Cap) 60 mg PO [facility] Stop: 11/04/20 20:59 Last Admin: 10/08/20 21:19 Dose: 60 mg Documented by: Duloxetine HCl (Duloxetine Hcl 30 Mg Cap) 30 mg PO [facility] Stop: 11/04/20 20:59 Last Admin: 10/08/20 21:22 Dose: 30 mg Documented by: [facility]asteride ([facility]asteride 5 Mg Tab) [facility] [place] Stop: 11/04/20 08:59 Last Admin: 10/08/20 09:09 Dose: Not Given Documented by: Lorazepam (Ativan) 1 mg in 2 mls @ 2 mls/min IV Q4H PRN PRN Reason: Agitation Stop: 11/05/20 13:31 Last Admin: 10/07/20 07:47 Dose: 2 mls/min Documented by: Valproic Acid 500 mg/ Dextrose 55 mls @ 55 mls/hr IV TID [facility] Stop: 11/05/20 20:59 Last Infusion: 10/08/20 23:12 Dose: Infused Documented by: Thiamine HCl 100 mg/ Syringe 10 mls @ 2 mls/min IV QAM [facility] Stop: 11/06/20 08:59 Last Admin: 10/08/20 09:07 Dose: 2 mls/min Documented by: Folic Acid 1 mg/ Syringe 10 mls @ 5 mls/min IV QAM [facility] Stop: 11/06/20 08:59 Last Admin: 10/08/20 09:07 Dose: 5 mls/min Documented by: Furosemide 20 mg/ Syringe 2 mls @ 4 mls/min IV DAILY [facility] Stop: 11/06/20 11:59 Last Admin: 10/08/20 09:07 Dose: 4 mls/min Documented by: Ceftriaxone Sodium 2,000 mg/ (Dextrose) 70 mls @ 100 mls/hr IV DAILY@1100 KD; Protocol Stop: 10/10/20 10:59 Last Infusion: 10/08/20 13:30 Dose: Infused Documented by: Doxycycline Hyclate 100 mg/ (Dextrose) 110 mls @ 50 mls/hr IV Q12 [facility] Stop: 10/10/20 10:29 Last Infusion: 10/09/20 00:15 Dose: Infused Documented by: Isosorbide Mononitrate (Isosorbide [place] Extended Rel 60 Mg Tabcr) 60 mg PO QAM [facility] Stop: 11/04/20 08:59 Last Admin: 10/08/20 09:09 Dose: Not Given Documented by: Loratadine (Loratadine 10 Mg Tab) 10 mg PO DAILY PRN PRN Reason: Allergy Symptoms Stop: 11/04/20 07:31 Magnesium Hydroxide (Magnesium Hydroxide Susp 30 Ml Udc) 30 ml PO Q12H PRN PRN Reason: Constipation Stop: 11/04/20 12:26 Magnesium Oxide (Magnesium Oxide 400 Mg Tab) 400 mg PO BID [facility] Stop: 11/04/20 20:59 Last Admin: 10/08/20 22:06 Dose: 400 mg Documented by: Metoprolol Succinate (Metoprolol Succ 25mg Ext Rel Tab) [facility] [place] Stop: 11/04/20 08:59 Last Admin: 10/08/20 09:09 Dose: Not Given Documented by: Metoprolol Tartrate (Metoprolol Tartrate 1 Mg/Ml Vial) 5 mg IV Q6 [facility] Stop: 11/07/20 11:59 Last Admin: 10/09/20 05:28 Dose: 5 mg Documented by: Miscellaneous (Remove Nicoderm Patch) 1 ea N/A DAILY@0859 [facility] Stop: 11/06/20 08:58 Last Admin: 10/08/20 04:06 Dose: 1 ea Documented by: Multivitamins (Multivitamin Tab) 1 tab [facility] [place] Stop: 11/04/20 08:59 Last Admin: 10/08/20 09:09 Dose: Not Given Documented by: Nicotine (Nicotine 14 Mg/24 Hr Patch) 14 mg TD [facility] Stop: 11/05/20 05:34 Last Admin: 10/08/20 09:08 Dose: 14 mg Documented by: Nicotine Polacrilex (Nicotine Polacrilex 2 Mg Gum) 1 piece MT Q1H PRN PRN Reason: smoking urge Stop: 11/05/20 05:30 Last Admin: 10/08/20 21:39 Dose: 1 piece Documented by: Ondansetron HCl (Ondansetron Inj 2 Mg/Ml 2 Ml Vial) 4 mg IV Q6H PRN PRN Reason: Nausea Stop: 11/04/20 12:26 Polyethylene Glycol (Polyethylene (Miralax) 17 Gm Pack) 17 gm PO DAILY PRN PRN Reason: Constipation Stop: 11/04/20 12:26 Potassium Chloride (Potassium Chloride 10 Meq Tabcr) 10 meq PO BID [facility] Stop: 11/04/20 08:59 Last Admin: 10/08/20 22:05 Dose: 10 meq Documented by: Ropinirole HCl (Ropinirole Hcl 0.25 Mg Tablet) 0.5 mg PO HS [facility] Stop: 11/04/20 20:59 Last Admin: 10/08/20 21:20 Dose: 0.5 mg Documented by: Sacubitril/Valsartan (Sacubitril-Valsartan 24-26 Mg Tab) 1 tab PO BID [facility] Stop: 11/04/20 08:59 Last Admin: 10/08/20 21:23 Dose: 1 tab Documented by: Tamsulosin HCl (Tamsulosin Hcl 0.4 Mg Cap) 0.4 mg PO HS [facility] Stop: 11/04/20 20:59 Last Admin: 10/08/20 21:21 Dose: 0.4 mg Documented by: Trazodone HCl (Trazodone Hcl 100 Mg Tab) 50 mg PO HS [facility] Stop: 11/04/20 20:59 Last Admin: 10/08/20 21:20 Dose: 50 mg Documented by: (1) CAD (coronary artery disease) Associated angina: unspecified whether angina present Coronary Disease- Associated Artery/Lesion type: [place] artery [place] vs. transplanted heart: [place] heart Qualified Code(s): I25.10 - Atherosclerotic heart disease of [place] coronary artery without angina pectoris (2) CHF (congestive heart failure) Heart failure chronicity: acute on chronic Heart failure type: combined systolic and diastolic Qualified Code(s): I50.43 - Acute on chronic combined systolic (congestive) and diastolic (congestive) heart failure (3) Aortic stenosis Cardiac valve disease etiology: nonrheumatic Qualified Code(s): I35.0 - Nonrheumatic aortic (valve) stenosis
[2020-10-09] MEDS ORDERED: POTASSIUM CHLORIDE 10 MEQ TABCR PO STA (08:11)
[2020-10-09] MEDS: SACUBITRIL-VALSARTAN 24-26 MG TAB PO SCH ×2 (08:31→21:09)
[2020-10-09] MEDS: FINASTERIDE 5 MG TAB PO SCH (08:31)
[2020-10-09] MEDS: ISOSORBIDE MONO EXTENDED REL 60 MG TABCR PO SCH (08:31)
[2020-10-09] MEDS: MAGNESIUM OXIDE 400 MG TAB PO SCH ×2 (08:31→21:06)
[2020-10-09] MEDS: NICOTINE 14 MG/24 HR PATCH TD SCH (08:31)
[2020-10-09] MEDS: METOPROLOL SUCC 25MG EXT REL TAB PO SCH (08:31)
[2020-10-09] MEDS: MULTIVITAMIN TAB PO SCH (08:31)
[2020-10-09] MEDS: FOLIC ACID 1 MG in SYRINGE 9.8 ML IV SCH (08:32)
[2020-10-09] MEDS: POTASSIUM CHLORIDE 10 MEQ TABCR PO SCH ×2 (08:32→21:09)
[2020-10-09] MEDS: ASPIRIN 81 MG ECTAB PO SCH (08:32)
[2020-10-09] MEDS: FUROSEMIDE 20 MG in SYRINGE 0 ML IV SCH (08:32)
[2020-10-09] MEDS: THIAMINE HCL 100 MG in SYRINGE 9 ML IV SCH (08:32)
[2020-10-09] MEDS: FOLIC ACID 1 MG TAB PO SCH (08:48)
[2020-10-09] MEDS: DOXYCYCLINE HYCLATE 100 MG CAP PO SCH ×2 (08:48→21:09)
[2020-10-09] MEDS: THIAMINE HCL 100 MG TAB PO SCH (08:48)
[2020-10-09] MEDS ORDERED: DIVALPROEX EXTENDED RELEASE 500 MG TAB PO SCH (09:00)
[2020-10-09] MEDS: cefTRIAXone SODIUM 2,000 MG in DEXTROSE 5% 50 ML IV SCH (11:30)
--- NOTE | 2020-10-09 12:43 | Cardiology Progress Note ---
Date of Service October 09, 2020 Assessment & Plan (1) Elevated troponin I level: Suspect type II event, demand ischemia in the setting of hypoxemia, known/fixed coronary disease with diagonal branch vessel occlusion per prior catheterization, volume overload/CHF, and sedation. ECG without significant ST changes however, nondiagnostic due to left bundle branch block pattern. Echocardiogram without change Patient recovering from acute delirium. Stable cardiac status. With usual medications resumed including beta-maximino therapy. Outpatient cardiovascular appointment already scheduled 12/09/2020 (2) LBBB (left bundle branch block): Intermittent left bundle branch block documented on prior ECG. Specifically, ECG performed on September 12, 2019 at 21:42 is nearly identical to the ECG performed during this admission. Ejection fraction 40-45% per most recent echocardiogram in May. Repeat ECG performed 10/06/2020, 10/07/20 unchanged. (3) Acute heart failure with reduced ejection fraction and diastolic dysfunction: Volume status stable (4) Aortic stenosis: Moderate per most recent echocardiogram 05/2020. (5) Nonsustained ventricular tachycardia: Patient has resumed oral medications this morning including metoprolol. No additional intervention warranted (6) CAD (coronary artery disease): Most recent cardiac catheterization performed 09/12/2019 due to elevated troponins and congestive heart failure. First diagonal branch occlusion visualized filling late via left to left collaterals, otherwise, no significant obstructive coronary disease. (7) Electrolyte and fluid disorder: Admission and Anticipated Discharge Date Admission Date: October 05, 2020 Subjective Patient was seen and examined, chart, medications, telemetry reviewed. Patient awake and conversant this morning oriented. No focal complaints or discomfort. Mental status appears to have cleared Physical Exam Constitutional: WD/WN, vitals as above Eyes: PERRL, conjunctivae normal, anicteric sclerae ENMT: external ear and nose normal, oropharynx normal Neck: trachea midline, no thyromegaly Respiratory: normal respiratory effort, lungs clear to auscultation Cardiovascular: Rate/Rhythm: regular rate and regular rhythm Heart Sounds: normal S1, normal S2 and + murmur (Grade 2/6 systolic, no diastolic); no gallop Palpation: normal PMI Vessels: normal carotid upstroke and radial pulses present; no JVD and no carotid bruit Extremities: no edema Gastrointestinal (Abdomen): normal bowel sounds, soft, nontender, no hepatosplenomegaly Musculoskeletal: no cyanosis or clubbing, extremities motor strength 5/5 Skin: no rashes, warm and dry Neurologic: PERRL, EOMI, accommodation nl, no face palsy, no dysarthria Psychiatric: A+Ox3, euthymic affect Results & Data ([facility]) Vital Signs (Past 12 Hours) Vital Signs Temp Pulse Pulse Pulse Resp BP BP 10/09/20 11:18 36.8 C 82 19 94/61 L 10/09/20 08:01 79 10/09/20 07:25 36.7 C 76 19 104/63 10/09/20 07:16 85 18 10/09/20 05:28 78 129/81 10/09/20 04:20 36.2 C L 78 19 129/81 Pulse Ox 10/09/20 11:18 96 10/09/20 08:01 10/09/20 07:25 93 10/09/20 07:16 94 10/09/20 05:28 10/09/20 04:20 95 Laboratory Results Laboratory Results - last 24 hr 10/08/20 10/08/20 10/09/20 16:13 20:39 06:15 WBC RBC Hgb Hct MCV MCH MCHC RDW Std Deviation RDW Coeff of Deborah Plt Count MPV Sodium 139 Potassium 3.7 Chloride 105 Carbon Dioxide 25 Anion Gap 9.0 BUN 28 H D Creatinine 1.04 Est Cr Clr Drug Dosing 61.5 Est GFR ( Amer) 79.3 Est GFR (Non-Af Amer) 68.4 BUN/Creatinine Ratio 26.9 H Glucose 100 H POC Glucose 151 H 85 Calcium 8.0 L Phosphorus 2.4 L D Magnesium 1.9 Procalcitonin 10/09/20 10/09/20 10/09/20 06:15 09:20 11:35 WBC 7.54 RBC 4.17 L Hgb 12.6 L Hct 36.6 L MCV 87.8 MCH 30.2 MCHC 34.4 RDW Std Deviation 49.4 H RDW Coeff of Deborah 15.6 H Plt Count 204 MPV 9.5 Sodium Potassium Chloride Carbon Dioxide Anion Gap BUN Creatinine Est Cr Clr Drug Dosing Est GFR ( Amer) Est GFR (Non-Af Amer) BUN/Creatinine Ratio Glucose POC Glucose 159 H Calcium Phosphorus Magnesium Procalcitonin < 0.05 (1) Aortic stenosis Cardiac valve disease etiology: nonrheumatic Qualified Code(s): I35.0 - Nonrheumatic aortic (valve) stenosis (2) CAD (coronary artery disease) Coronary Disease-Associated Artery/Lesion type: [place] artery [place] vs. transplanted heart: [place] heart Associated angina: unspecified whether angina present Qualified Code(s): I25.10 - Atherosclerotic heart disease of [place] coronary artery without angina pectoris
[2020-10-09 18:28] LABS: BUN Creatinine Ratio 31.3 (10-20); Calcium 8.1 mg/dl (8.5-10.1); Creatinine Clr Calc Pharmacy 57.1 ml/min; Est GFR (African American) 72.5; Est GFR (Non-African American) 62.6; Magnesium 1.7 mg/dl (1.8-2.4); Potassium 3.4 mmol/L (3.5-5.1)
[2020-10-09] MEDS: DIVALPROEX EXTENDED RELEASE 250 MG TABCR PO SCH (21:06)
[2020-10-09] MEDS: DULoxetine HCL 60 MG CAP PO SCH (21:07)
[2020-10-09] MEDS: traZODone HCL 100 MG TAB PO SCH (21:07)
[2020-10-09] MEDS: DULoxetine HCL 30 MG CAP PO SCH (21:08)
[2020-10-09] MEDS: TAMSULOSIN HCL 0.4 MG CAP PO SCH (21:08)
[2020-10-09] MEDS: rOPINIRole HCL 0.25 MG TABLET PO SCH (21:08)
[2020-10-09] MEDS: ATORVASTATIN 40 MG TAB PO SCH (21:09)
[2020-10-10 07:01] LABS: Hematocrit (blood only) 36.6 % (42-52); Hemoglobin 12.6 g/dL (14.0-18.0); Mean Corpuscular Hgb Conc 34.4 g/dL (32-36); Mean Corpuscular Volume 87.1 fL (80-100); Mean Platelet Volume 9.2 fL (7.4-10.4); Platelet Count 215 K/uL (130-400); RDW Coefficient of Variation 15.4 % (11.5-14.5); RDW Standard Deviation 49.3 fL (36.4-46.3); White Blood Count 5.63 K/uL (4.8-10.8)
[2020-10-10] MEDS: ALBUT/IPRATROP 3MG/0.5MG NEB 3 ML VIAL INH SCH ×3 (07:18→19:25)
[2020-10-10 07:32] LABS: BUN Creatinine Ratio 31.5 (10-20); Calcium 8.7 mg/dl (8.5-10.1); Creatinine Clr Calc Pharmacy 71.2 ml/min; Est GFR (African American) 93.2; Est GFR (Non-African American) 80.4; Magnesium 1.9 mg/dl (1.8-2.4); Potassium 3.6 mmol/L (3.5-5.1)
[2020-10-10 07:35] LABS: Phosphorus 3.2 mg/dl (2.5-4.9)
[2020-10-10] MEDS: POTASSIUM CHLORIDE 10 MEQ TABCR PO SCH ×2 (08:06→20:58)
[2020-10-10] MEDS: ISOSORBIDE MONO EXTENDED REL 60 MG TABCR PO SCH (08:07)
[2020-10-10] MEDS: DOXYCYCLINE HYCLATE 100 MG CAP PO SCH ×2 (08:07→20:55)
[2020-10-10] MEDS: SACUBITRIL-VALSARTAN 24-26 MG TAB PO SCH ×2 (08:07→20:56)
[2020-10-10] MEDS: FINASTERIDE 5 MG TAB PO SCH (08:07)
[2020-10-10] MEDS: THIAMINE HCL 100 MG TAB PO SCH (08:07)
[2020-10-10] MEDS: MULTIVITAMIN TAB PO SCH (08:07)
[2020-10-10] MEDS: METOPROLOL SUCC 25MG EXT REL TAB PO SCH ×2 (08:08→20:57)
[2020-10-10] MEDS: NICOTINE 14 MG/24 HR PATCH TD SCH (08:08)
[2020-10-10] MEDS: MAGNESIUM OXIDE 400 MG TAB PO SCH ×2 (08:08→20:58)
[2020-10-10] MEDS: DIVALPROEX EXTENDED RELEASE 250 MG TABCR PO SCH ×2 (08:08→20:56)
[2020-10-10] MEDS: ASPIRIN 81 MG ECTAB PO SCH (08:08)
[2020-10-10] MEDS: FOLIC ACID 1 MG TAB PO SCH (08:08)
[2020-10-10] MEDS ORDERED: POTASSIUM CHLORIDE 10 MEQ TABCR PO STA (09:12)
--- NOTE | 2020-10-10 09:22 | Hospitalist Progress Note ---
Date of Service October 10, 2020 Assessment & Plan (1) Visual hallucination: (2) Paranoid delusion: This is a 79-year-old male who has significant past medical history of chronic HFrEF, CAD, HTN, HLD, moderate aortic stenosis, T2DM, COPD, long-term tobacco abuse, RLS, LS as with neurogenic claudication, LOLA not on CPAP, depression with anxiety, GERD who presents to ED via 302 petition by police secondary to visual hallucinations x1 day. Patient is alert and oriented x3 but with strong visual hallucinations that occurred yesterday while at home. Patient felt he saw multiple people in his house, "spraying webs," and also saw a "skinny, unsure of gender, person dressed in blue jeans and a red shirt," in his room. He had 2 loaded guns at bedside prior to going to bed. He denied any suicidal or homicidal ideations but was very frightened of the unknown individuals in house; therefore he called police. Police were unable to find anybody in the home. He was brought to ED on 302 petition. Initially felt to be medically stable but upon further lab evaluation was found to have severe electrolyte derangements and therefore medical admission was warranted. No prior history of psychiatric illness. Does have diagnosis depression with anxiety on epic. 1:1 prn consulted psychiatry correct electrolyte abnormalities, ? playing a role checked vit [id number] 721 (wnl), RPR- negative, TSH - wnl CT head negative hold narcotics, pt denies elicit drug use, drug tox screen negative no s/sx of infection, blood cultx - negative consider neuro eval if sx persist AM 10/06/20 AM, patient agitated, julianne christine was called, patient was placed in restraints, given Zyprexa. Continues to be agitated however/possibly somewhat confused, mumbling. Psychiatry consulted again, Given prolonged QTC, worried about Zyprexa. Per psychiatry, started on 500 IV Depakote/valproic acid, TID and ativan. 10/07 overnight continues to be agitated, required Zyprexa again. 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 However some hours later developed frequent apnea and desaturated to 70s percent. He was started on BiPAP and ICU was contacted. Patient was transferred to ICU for further care and treatment. Currently sedated on Precedex drip , plan for LP. 10/08 Pt is awake but somewhat confused but cooperative. Per ICU provider, ok to downgrade from ICU now. LP obtained on 10/07/20. Absence of WBCs in the CSF, not likely meningitis. Recommend to obtain MRI, order CT head CTA head and neck. Continue thiamine and folic acid. Neurology consulted, appreciate their input. Brain MRI ordered 10/09 Patient sitting up in the chair, in no acute distress, cooperative, answering questions appropriately. However he does insist on seeing people in his house. LP consistent with traumatic tap. CSF cultx - negative. CSF Viral panel- negative. MRI does not show any new stroke, possibly old stroke. Neurology consulted, not likely meningitis or encephalitis. Recommend to continue valproic acid/Depakote for mood stabilization. Likely secondary to frontotemporal dementia. Patient also seen by psychiatry, feel that patient had delirium. Follow-up with psychiatry and neurology. Recommendations for delirium interventions noted. 10/10 Patient is to be back to baseline as far as mental status. Reports he was having diarrhea prior to his incident of hallucination. He was taking several medications to help with diarrhea. He is wondering if that could be contributing. Stool cultures were ordered on admission however not obtained. Discussed with nursing staff. Patient continues to complain of loose stools. Currently breathing on room air, will likely restart p.o. furosemide at lower dose in the morning depending on blood pressure. Will recheck chest x-ray and proBNP. BP on the lower side. Elevated troponin - demand ischemia in the setting of hypoxemia, mild CHF exacerbation, no significant ECG changes - pt denies any chest pain however was sedated previously Acute heart failure with reduced ejection fraction and diastolic dysfunction -CXR w/ pulm. congestion, proBNP elevated Last echo 05/2020-EF 40 to 45%, left ventricular hypokinesis, moderate aortic valve stenosis, mild AR -received daily IV lasix 20 since 10/07 -pt was NPO d/t confusion/ sedation , now PO meds restarted -repeat CXR much improved -Current echo shows no significant change from previous. LV systolic function mildly reduced. EF 40 to 45%. Moderate concentric LVH. Aortic valve is moderately calcified. Moderate valvular aortic stenosis. Mild aortic regurg. Mild to moderate mitral regurg. -Cardiology following, most p.o. meds restarted, likely will restart furosemide in the morning. BP on lower side. We will recheck proBNP and chest x-ray. Patient is currently breathing comfortably on room air. Intermittent LBBB Discussed w/ cardiology, LBBB is not new (despite ECG read on admission) - noted on previous ECG as well in August 2019 Diarrhea pt reports diarrhea x 2 weeks prior to admission, no other abd sx or signs of infection stool culture, stool for cdiff -ordered on admission but not collected Discussed with nursing staff, as patient continues to complain of loose stools likely culprit of hypomag/ electrolyte abnormalities (3) Hypomagnesemia: mag, 0.9 Replace and monitor likely secondary to prolonged diarrhea (4) Hypocalcemia: Calcium 6.8, may be in setting of low mag Obtain vitamin D and PTH levels Received 1 g calcium gluconate in ED Replace and monitor (5) Hyponatremia: Sodium 130 Held Lasix on admission Serum osm 271, urine osm 127 (low) and urine sodium 30 Received 1 L of IVF in ED Denies any excessive thirst or drinking Repeat sodium improved, also further discussed with nephrology (6) CAD (coronary artery disease): (7) CHF (congestive heart failure): (8) Aortic stenosis: Chronic HFrEF now w/ mild exacerbation Last echo 05/2020-EF 40 to 45%, left ventricular hypokinesis, moderate aortic valve stenosis, mild AR Continue ASA, statin, Imdur, Entresto, metoprolol if pt ok to take PO Held Lasix initially in setting of hyponatremia Daily weights, strict I's and O's Heart healthy diet CXR showing pulm. congestion pt received IV lasix Cardiology following (9) COPD (chronic obstructive pulmonary disease): No acute exacerbation Continue nebs (10) Smoking: Tobacco abuse will nicotine supplementation as patient has prior history of hallucinations with Chantix (11) BPH (benign prostatic hyperplasia): Continue finasteride and Flomax (12) DVT prophylaxis: Lovenox Dispo: PCU consult case management given 302 petition and possible placement needed Full code PCP: Dr. Junaid Gibbons Admission and Anticipated Discharge Date Admission Date: October 05, 2020 Subjective Patient seen in a follow-up of altered mental status Was on Precedex drip and BiPAP in ICU Now in PCU, currently awake, and he is not combative, breathing on room air. He is sitting up in chair answering questions appropriately, however he still thinks that there were certainly people there in his house. No chest pain, shortness of breath, abdominal pain. Reports good appetite. Patient tells me that prior to his incident of hallucinations, he was having diarrhea for about 2 weeks, and he was taking multiple medications to stop diarrhea. He is wondering if that could be contributing to his altered mental status. Stool studies were ordered on admission, however not collected. Discussed this with nursing staff. Reordered stool studies. Patient continues to complain of having loose stools. PT/OT ordered - recommend rehab CM aware Review of Systems Review of Systems: All systems reviewed & are unremarkable except as noted in HPI & below Constitutional: no fever and no chills Respiratory: no cough and no dyspnea Cardiovascular: no chest pain and no palpitations Gastrointestinal: + diarrhea/loose stools; no abdominal pain, no nausea and no vomiting Physical Exam Constitutional: WD/WN, vitals as above Eyes: PERRL, conjunctivae normal, anicteric sclerae ENMT: external ear and nose normal, oropharynx normal Neck: normal visual inspection Respiratory: normal respiratory effort, lungs clear to auscultation no respiratory distress and no labored breathing Auscultation: no wheezes Cardiovascular: Rate/Rhythm: regular rate Heart Sounds: + murmur (systolic) Chest (Breasts): Chest: normal inspection of chest Gastrointestinal (Abdomen): Inspection/Auscultation: abdomen normal to inspection Percussion/Palpation: abdomen soft; no guarding and abdomen not rigid Musculoskeletal: Head/Neck/Chest: normocephalic and head atraumatic Skin: + dry skin Neurologic: PERRL, EOMI, accommodation nl, no face palsy, no dysarthria moves all extremities Psychiatric: A+Ox3, euthymic affect (however insists that there were ppl in his house) Lymphatic: no lymphedema Results & Data Results & Data ([facility]) Vital Signs (Past 12 Hours) Vital Signs Temp Pulse Pulse Resp BP BP Pulse Ox 10/10/20 07:31 36.6 C 70 18 100/64 93 10/10/20 07:18 72 16 94 10/10/20 03:55 36.5 C 84 20 100/61 95 10/10/20 00:10 36.4 C L 81 20 146/76 H 93 Laboratory Results 10/10/20 10/10/20 10/10/20 Range/Units 07:27 06:51 06:51 WBC 5.63 (4.8-10.8) K/uL RBC 4.20 L (4.7-6.1) M/uL Hgb 12.6 L (14.0-18.0) g/dL Hct 36.6 L (42-52) % MCV 87.1 (80-100) fL MCH 30.0 (25-34) pg MCHC 34.4 (32-36) g/dL RDW Std Deviation 49.3 H (36.4-46.3) fL RDW Coeff of Deborah 15.4 H (11.5-14.5) % Plt Count 215 (130-400) K/uL MPV 9.2 (7.4-10.4) fL Sodium 135 L (136-145) mmol/L Potassium 3.6 (3.5-5.1) mmol/L Chloride 104 (98-107) mmol/L Carbon Dioxide 24 (21-32) mmol/L Anion Gap 7.0 (3-11) BUN 29 H (7-18) mg/dl Creatinine 0.91 (0.6-1.4) mg/dl Est Cr Clr Drug Dosing 71.2 ml/min Est GFR ( Amer) 93.2 Est GFR (Non-Af Amer) 80.4 BUN/Creatinine Ratio 31.5 H (10-20) Glucose 112 H (70-99) mg/dl POC Glucose 120 H (70-99) mg/dl Calcium 8.7 (8.5-10.1) mg/dl Phosphorus 3.2 (2.5-4.9) mg/dl Magnesium 1.9 (1.8-2.4) mg/dl Procalcitonin (0-0.5) ng/ml 10/09/20 10/09/20 10/09/20 Range/Units 20:52 18:01 16:29 WBC (4.8-10.8) K/uL RBC (4.7-6.1) M/uL Hgb (14.0-18.0) g/dL Hct (42-52) % MCV (80-100) fL MCH (25-34) pg MCHC (32-36) g/dL RDW Std Deviation (36.4-46.3) fL RDW Coeff of Deborah (11.5-14.5) % Plt Count (130-400) K/uL MPV (7.4-10.4) fL Sodium 137 (136-145) mmol/L Potassium 3.4 L (3.5-5.1) mmol/L Chloride 103 (98-107) mmol/L Carbon Dioxide 27 (21-32) mmol/L Anion Gap 7.0 (3-11) BUN 35 H (7-18) mg/dl Creatinine 1.12 (0.6-1.4) mg/dl Est Cr Clr Drug Dosing 57.1 ml/min Est GFR ( Amer) 72.5 Est GFR (Non-Af Amer) 62.6 BUN/Creatinine Ratio 31.3 H (10-20) Glucose 135 H (70-99) mg/dl POC Glucose 112 H 120 H (70-99) mg/dl Calcium 8.1 L (8.5-10.1) mg/dl Phosphorus (2.5-4.9) mg/dl Magnesium 1.7 L (1.8-2.4) mg/dl Procalcitonin (0-0.5) ng/ml 10/09/20 10/09/20 Range/Units 11:35 09:20 WBC (4.8-10.8) K/uL RBC (4.7-6.1) M/uL Hgb (14.0-18.0) g/dL Hct (42-52) % MCV (80-100) fL MCH (25-34) pg MCHC (32-36) g/dL RDW Std Deviation (36.4-46.3) fL RDW Coeff of Deborah (11.5-14.5) % Plt Count (130-400) K/uL MPV (7.4-10.4) fL Sodium (136-145) mmol/L Potassium (3.5-5.1) mmol/L Chloride (98-107) mmol/L Carbon Dioxide (21-32) mmol/L Anion Gap (3-11) BUN (7-18) mg/dl Creatinine (0.6-1.4) mg/dl Est Cr Clr Drug Dosing ml/min Est GFR ( Amer) Est GFR (Non-Af Amer) BUN/Creatinine Ratio (10-20) Glucose (70-99) mg/dl POC Glucose 159 H (70-99) mg/dl Calcium (8.5-10.1) mg/dl Phosphorus (2.5-4.9) mg/dl Magnesium (1.8-2.4) mg/dl Procalcitonin < 0.05 (0-0.5) ng/ml Medications Administered Current Inpatient Medications Acetaminophen (Acetaminophen 325 Mg Tab) 650 mg PO Q4H PRN PRN Reason: Pain or Fever Stop: 11/04/20 12:26 Last Admin: 10/08/20 23:16 Dose: 650 mg Documented by: Al Hydrox/Mg Hydrox/Simethicone (Aluminum/Magnesium Susp 30 Ml Udc) 15 ml PO Q4H PRN PRN Reason: Dyspepsia Stop: 11/04/20 12:26 Albuterol (Albut/Ipratrop 3mg/0.5mg Neb 3 Ml Vial) 3 ml INH TID [facility] Stop: 11/04/20 08:59 Last Admin: 10/10/20 07:18 Dose: 3 ml Documented by: Aspirin (Aspirin 81 Mg Ectab) 162 mg PO QAM [facility] Stop: 11/04/20 08:59 Last Admin: 10/10/20 08:08 Dose: 162 mg Documented by: Atorvastatin Calcium (Atorvastatin 40 Mg Tab) 80 mg PO HS [facility] Stop: 11/04/20 20:59 Last Admin: 10/09/20 21:09 Dose: 80 mg Documented by: Divalproex Sodium (Divalproex Extended Release 250 Mg Tabcr) 750 mg PO BID [facility] Stop: 11/08/20 20:59 Last Admin: 10/10/20 08:08 Dose: 750 mg Documented by: Doxycycline Hyclate (Doxycycline Hyclate 100 Mg Cap) 100 mg PO BID [facility] Stop: 10/14/20 21:01 Last Admin: 10/10/20 08:07 Dose: 100 mg Documented by: Duloxetine HCl (Duloxetine Hcl 60 Mg Cap) 60 mg PO [facility] Stop: 11/04/20 20:59 Last Admin: 10/09/20 21:07 Dose: 60 mg Documented by: Duloxetine HCl (Duloxetine Hcl 30 Mg Cap) 30 mg PO [facility] Stop: 11/04/20 20:59 Last Admin: 10/09/20 21:08 Dose: 30 mg Documented by: Finasteride (Finasteride 5 Mg Tab) 5 mg PO QAM [facility] Stop: 11/04/20 08:59 Last Admin: 10/10/20 08:07 Dose: 5 mg Documented by: Folic Acid (Folic Acid 1 Mg Tab) 1 mg PO QAM [facility] Stop: 11/08/20 08:59 Last Admin: 10/10/20 08:08 Dose: 1 mg Documented by: Lorazepam (Ativan) 1 mg in 2 mls @ 2 mls/min IV Q4H PRN PRN Reason: Agitation Stop: 11/05/20 13:31 Last Admin: 10/07/20 07:47 Dose: 2 mls/min Documented by: Isosorbide Mononitrate (Isosorbide [place] Extended Rel 60 Mg Tabcr) 60 mg PO [facility] Stop: 11/04/20 08:59 Last Admin: 10/10/20 08:07 Dose: 60 mg Documented by: Loratadine (Loratadine 10 Mg Tab) 10 mg PO DAILY PRN PRN Reason: Allergy Symptoms Stop: 11/04/20 07:31 Magnesium Hydroxide (Magnesium Hydroxide Susp 30 Ml Udc) 30 ml PO Q12H PRN PRN Reason: Constipation Stop: 11/04/20 12:26 Magnesium Oxide (Magnesium Oxide 400 Mg Tab) 400 mg PO BID [facility] Stop: 11/04/20 20:59 Last Admin: 10/10/20 08:08 Dose: 400 mg Documented by: Metoprolol Succinate (Metoprolol Succ 25mg Ext Rel Tab) [facility] Stop: 11/04/20 08:59 Last Admin: 10/10/20 08:08 Dose: 25 mg Documented by: Miscellaneous (Remove Nicoderm Patch) 1 ea N/A DAILY@0859 [facility] Stop: 11/06/20 08:58 Last Admin: 10/10/20 08:09 Dose: 1 ea Documented by: Multivitamins (Multivitamin Tab) [facility] Stop: 11/04/20 08:59 Last Admin: 10/10/20 08:07 Dose: 1 tab Documented by: Nicotine (Nicotine 14 Mg/24 Hr Patch) 14 mg TD [facility] Stop: 11/05/20 05:34 Last Admin: 10/10/20 08:08 Dose: 14 mg Documented by: Nicotine Polacrilex (Nicotine Polacrilex 2 Mg Gum) 1 piece MT Q1H PRN PRN Reason: smoking urge Stop: 11/05/20 05:30 Last Admin: 10/08/20 21:39 Dose: 1 piece Documented by: Ondansetron HCl (Ondansetron Inj 2 Mg/Ml 2 Ml Vial) 4 mg IV Q6H PRN PRN Reason: Nausea Stop: 11/04/20 12:26 Polyethylene Glycol (Polyethylene (Miralax) 17 Gm Pack) 17 gm PO DAILY PRN PRN Reason: Constipation Stop: 11/04/20 12:26 Potassium Chloride (Potassium Chloride 10 Meq Tabcr) 10 meq PO BID [facility] Stop: 11/04/20 08:59 Last Admin: 10/10/20 08:06 Dose: 10 meq Documented by: Ropinirole HCl (Ropinirole Hcl 0.25 Mg Tablet) 0.5 mg PO [facility] Stop: 11/04/20 20:59 Last Admin: 10/09/20 21:08 Dose: 0.5 mg Documented by: Sacubitril/Valsartan (Sacubitril-Valsartan 24-26 Mg Tab) 1 tab PO BID [facility] Stop: 11/04/20 08:59 Last Admin: 10/10/20 08:07 Dose: 1 tab Documented by: Tamsulosin HCl (Tamsulosin Hcl 0.4 Mg Cap) 0.4 mg PO [facility] Stop: 11/04/20 20:59 Last Admin: 10/09/20 21:08 Dose: 0.4 mg Documented by: Thiamine HCl (Thiamine Hcl 100 Mg Tab) [facility] Stop: 11/08/20 08:59 Last Admin: 10/10/20 08:07 Dose: 100 mg Documented by: Trazodone HCl (Trazodone Hcl 100 Mg Tab) 50 mg PO [facility] Stop: 11/04/20 20:59 Last Admin: 10/09/20 21:07 Dose: 50 mg Documented by: (1) CAD (coronary artery disease) Coronary Disease-Associated Artery/Lesion type: [place] artery [place] vs. transplanted heart: [place] heart Associated angina: unspecified whether angina present Qualified Code(s): I25.10 - Atherosclerotic heart disease of [place] coronary artery without angina pectoris (2) CHF (congestive heart failure) Heart failure chronicity: acute on chronic Heart failure type: combined systolic and diastolic Qualified Code(s): I50.43 - Acute on chronic combined systolic (congestive) and diastolic (congestive) heart failure (3) Aortic stenosis Cardiac valve disease etiology: nonrheumatic Qualified Code(s): I35.0 - Nonrheumatic aortic (valve) stenosis
--- NOTE | 2020-10-10 10:57 | XRay Report ---
XR chest 1V portable CLINICAL HISTORY: Shortness of breath, pneumonia, follow-up study COMPARISON STUDY: 10/08/2020 FINDINGS: The heart remains enlarged. There is resolving pulmonary vascular congestion. Left basilar opacities are likely atelectatic[ IMPRESSION: Cardiomegaly and resolving pulmonary vascular congestion. Left basilar atelectatic change s. ACT 112: Negative or not required by law. Electronically signed by: Frank Montoya M.D. 10/10/2020 10:56 AM
--- NOTE | 2020-10-10 13:38 | Cardiology Progress Note ---
Date of Service October 10, 2020 Assessment & Plan (1) Elevated troponin I level: Suspect type II event, demand ischemia in the setting of hypoxemia, known/fixed coronary disease with diagonal branch vessel occlusion per prior catheterization, volume overload/CHF, and sedation. ECG without significant ST changes however, nondiagnostic due to left bundle branch block pattern. Echocardiogram without change Patient recovering from acute delirium. Will increase beta-maximino slightly to 12.5 mg additional dose of metoprolol succinate in the evening We will recommend discontinuing Requip (ordered) given arrhythmias and delirium (2) LBBB (left bundle branch block): Intermittent left bundle branch block documented on prior ECG. Specifically, ECG performed on September 12, 2019 at 21:42 is nearly identical to the ECG performed during this admission. Ejection fraction 40-45% per most recent echocardiogram in May. Repeat ECG performed 10/06/2020, 10/07/20 unchanged. (3) Acute heart failure with reduced ejection fraction and diastolic dysfunction: Volume status stable Will likely resume oral furosemide in a.m. (4) Aortic stenosis: Moderate per most recent echocardiogram 05/2020. (5) Nonsustained ventricular tachycardia: Patient has resumed oral medications this morning including metoprolol. No additional intervention warranted (6) CAD (coronary artery disease): Most recent cardiac catheterization performed 09/12/2019 due to elevated troponins and congestive heart failure. First diagonal branch occlusion visualized filling late via left to left collaterals, otherwise, no significant obstructive coronary disease. (7) Electrolyte and fluid disorder: Per nephrology. Normal electrolytes today per a.m. labs. Admission and Anticipated Discharge Date Admission Date: October 05, 2020 Subjective Patient was seen and examined, chart, medications, telemetry reviewed. Patient awake and conversant this morning oriented. No focal complaints or discomfort. Mental status appears to have improved. Brief run of nonsustained ventricular tachycardia on 2 occasions yesterday. No chest pains, shortness of breath, dizziness or lightheadedness. Review of Systems Review of Systems: All systems reviewed & are unremarkable except as noted in HPI & below Physical Exam Constitutional: WD/WN, vitals as above Eyes: PERRL, conjunctivae normal, anicteric sclerae ENMT: external ear and nose normal, oropharynx normal Neck: trachea midline, no thyromegaly Respiratory: normal respiratory effort, lungs clear to auscultation Cardiovascular: Rate/Rhythm: regular rate and regular rhythm Heart Sounds: normal S1, normal S2 and + murmur (Grade 2/6 systolic, no diastolic); no gallop Palpation: normal PMI Vessels: normal carotid upstroke and radial pulses present; no JVD and no carotid bruit Extremities: no edema Gastrointestinal (Abdomen): normal bowel sounds, soft, nontender, no hepatosplenomegaly Musculoskeletal: no cyanosis or clubbing, extremities motor strength 5/5 Skin: no rashes, warm and dry Neurologic: PERRL, EOMI, accommodation nl, no face palsy, no dysarthria Psychiatric: Orientation: alert and oriented x 3 Affect: + flat affect Results & Data ([facility]) Vital Signs (Past 12 Hours) Vital Signs Temp Pulse Pulse Pulse Resp BP BP 10/10/20 13:26 80 20 10/10/20 11:38 36.8 C 79 20 110/65 10/10/20 08:00 83 10/10/20 07:31 36.6 C 70 18 100/64 10/10/20 07:18 72 16 10/10/20 03:55 36.5 C 84 20 100/61 Pulse Ox 10/10/20 13:26 94 10/10/20 11:38 96 10/10/20 08:00 10/10/20 07:31 93 10/10/20 07:18 94 10/10/20 03:55 95 (1) Aortic stenosis Cardiac valve disease etiology: nonrheumatic Qualified Code(s): I35.0 - Nonrheumatic aortic (valve) stenosis (2) CAD (coronary artery disease) Coronary Disease-Associated Artery/Lesion type: [place] artery [place] vs. transplanted heart: [place] heart Associated angina: unspecified whether angina present Qualified Code(s): I25.10 - Atherosclerotic heart disease of [place] coronary artery without angina pectoris
[2020-10-10] MEDS: ATORVASTATIN 40 MG TAB PO SCH (20:56)
[2020-10-10] MEDS: DULoxetine HCL 60 MG CAP PO SCH (20:57)
[2020-10-10] MEDS: TAMSULOSIN HCL 0.4 MG CAP PO SCH (20:58)
[2020-10-10] MEDS: DULoxetine HCL 30 MG CAP PO SCH (20:59)
[2020-10-10] MEDS: traZODone HCL 100 MG TAB PO SCH (20:59)
[2020-10-11 05:13] LABS: Lyme DNA PCR CSF or Synovial Not detected (Not Detected); Lyme DNA Source CSF
[2020-10-11] MEDS: ALBUT/IPRATROP 3MG/0.5MG NEB 3 ML VIAL INH SCH (07:28)
[2020-10-11] MEDS: THIAMINE HCL 100 MG TAB PO SCH (07:48)
[2020-10-11] MEDS: NICOTINE 14 MG/24 HR PATCH TD SCH (07:48)
[2020-10-11] MEDS: POTASSIUM CHLORIDE 10 MEQ TABCR PO SCH ×2 (07:49→21:19)
[2020-10-11] MEDS: ISOSORBIDE MONO EXTENDED REL 60 MG TABCR PO SCH (07:49)
[2020-10-11] MEDS: METOPROLOL SUCC 25MG EXT REL TAB PO SCH ×2 (07:49→21:18)
[2020-10-11] MEDS: MULTIVITAMIN TAB PO SCH (07:49)
[2020-10-11] MEDS: ASPIRIN 81 MG ECTAB PO SCH (07:49)
[2020-10-11] MEDS: FOLIC ACID 1 MG TAB PO SCH (07:50)
[2020-10-11] MEDS: MAGNESIUM OXIDE 400 MG TAB PO SCH (07:50)
[2020-10-11] MEDS: SACUBITRIL-VALSARTAN 24-26 MG TAB PO SCH ×2 (07:50→21:20)
[2020-10-11] MEDS: DOXYCYCLINE HYCLATE 100 MG CAP PO SCH (07:50)
[2020-10-11] MEDS: FINASTERIDE 5 MG TAB PO SCH (07:50)
[2020-10-11] MEDS: DIVALPROEX EXTENDED RELEASE 250 MG TABCR PO SCH ×2 (07:50→21:17)
[2020-10-11 07:59] LABS: Hematocrit (blood only) 38.2 % (42-52); Hemoglobin 13.1 g/dL (14.0-18.0); Mean Corpuscular Hemoglobin 30.1 pg (25-34); Mean Corpuscular Hgb Conc 34.3 g/dL (32-36); Mean Corpuscular Volume 87.8 fL (80-100); Mean Platelet Volume 9.7 fL (7.4-10.4); Platelet Count 227 K/uL (130-400); RDW Coefficient of Variation 15.3 % (11.5-14.5); RDW Standard Deviation 49.1 fL (36.4-46.3); Red Blood Count 4.35 M/uL (4.7-6.1); White Blood Count 5.32 K/uL (4.8-10.8)
[2020-10-11 08:28] LABS: BUN Creatinine Ratio 24.4 (10-20); Creatinine Clr Calc Pharmacy 76.7 ml/min; Est GFR (African American) 97.2; Est GFR (Non-African American) 83.9; Potassium 3.9 mmol/L (3.5-5.1)
[2020-10-11 08:29] LABS: Phosphorus 3.4 mg/dl (2.5-4.9)
--- NOTE | 2020-10-11 08:42 | Hospitalist Progress Note ---
Date of Service October 11, 2020 Assessment & Plan (1) Visual hallucination: (2) Paranoid delusion: This is a 79-year-old male who has significant past medical history of chronic HFrEF, CAD, HTN, HLD, moderate aortic stenosis, T2DM, COPD, long-term tobacco abuse, RLS, LS as with neurogenic claudication, LOLA not on CPAP, depression with anxiety, GERD who presents to ED via 302 petition by police secondary to visual hallucinations x1 day. Patient is alert and oriented x3 but with strong visual hallucinations that occurred yesterday while at home. Patient felt he saw multiple people in his house, "spraying webs," and also saw a "skinny, unsure of gender, person dressed in blue jeans and a red shirt," in his room. He had 2 loaded guns at bedside prior to going to bed. He denied any suicidal or homicidal ideations but was very frightened of the unknown individuals in house; therefore he called police. Police were unable to find anybody in the home. He was brought to ED on 302 petition. Initially felt to be medically stable but upon further lab evaluation was found to have severe electrolyte derangements and therefore medical admission was warranted. No prior history of psychiatric illness. Does have diagnosis depression with anxiety on epic. 1:1 prn consulted psychiatry correct electrolyte abnormalities, ? playing a role checked vit [id number] 721 (wnl), RPR- negative, TSH - wnl CT head negative hold narcotics, pt denies elicit drug use, drug tox screen negative no s/sx of infection, blood cultx - negative consider neuro eval if sx persist AM 10/06/20 AM, patient agitated, julianne christine was called, patient was placed in restraints, given Zyprexa. Continues to be agitated however/possibly somewhat confused, mumbling. Psychiatry consulted again, Given prolonged QTC, worried about Zyprexa. Per psychiatry, started on 500 IV Depakote/valproic acid, TID and ativan. 10/07 overnight continues to be agitated, required Zyprexa again. clinical unit coordinator received Ativan, then became calm. However some hours later developed frequent apnea and desaturated to 70s percent. He was started on BiPAP and ICU was contacted. Patient was transferred to ICU for further care and treatment. Currently sedated on Precedex drip , plan for LP. 10/08 Pt is awake but somewhat confused but cooperative. Per ICU provider, ok to downgrade from ICU now. LP obtained on 10/07/20. Absence of WBCs in the CSF, not likely meningitis. Recommend to obtain MRI, order CT head CTA head and neck. Continue thiamine and folic acid. Neurology consulted, appreciate their input. Brain MRI ordered 10/09 Patient sitting up in the chair, in no acute distress, cooperative, answering questions appropriately. However he does insist on seeing people in his house. LP consistent with traumatic tap. CSF cultx - negative. CSF Viral panel- negative. MRI does not show any new stroke, possibly old stroke. Neurology consulted, not likely meningitis or encephalitis. Recommend to continue valproic acid/Depakote for mood stabilization. Likely secondary to frontotemporal dementia. Patient also seen by psychiatry, feel that patient had delirium. Follow-up with psychiatry and neurology. Recommendations for delirium interventions noted. 10/10 Patient is to be back to baseline as far as mental status. Reports he was having diarrhea prior to his incident of hallucination. He was taking several medications to help with diarrhea. He is wondering if that could be contributing. Stool cultures were ordered on admission however not obtained. Discussed with nursing staff. Patient continues to complain of loose stools. Currently breathing on room air, will likely restart p.o. furosemide at lower dose in the morning depending on blood pressure. Will recheck chest x-ray and proBNP. BP on the lower side. 10/11 Mental status seems to be at the baseline. Stool studies obtained. Per cardiology isosorbide dose decreased due to low BP. PT recommending rehab, patient not interested, will need to discuss further with the family and CM Elevated troponin - demand ischemia in the setting of hypoxemia, mild CHF exacerbation, no significant ECG changes - pt denies any chest pain however was sedated previously Acute heart failure with reduced ejection fraction and diastolic dysfunction -CXR w/ pulm. congestion, proBNP elevated Last echo 05/2020-EF 40 to 45%, left ventricular hypokinesis, moderate aortic valve stenosis, mild AR -received daily IV lasix 20 since 10/07 -pt was NPO d/t confusion/ sedation , now PO meds restarted -repeat CXR much improved -Current echo shows no significant change from previous. LV systolic function mildly reduced. EF 40 to 45%. Moderate concentric LVH. Aortic valve is moderately calcified. Moderate valvular aortic stenosis. Mild aortic regurg. Mild to moderate mitral regurg. -Cardiology following, most p.o. meds restarted, likely will restart furosemide in the morning. BP on lower side. We will recheck proBNP and chest x-ray. Patient is currently breathing comfortably on room air. Intermittent LBBB Discussed w/ cardiology, LBBB is not new (despite ECG read on admission) - noted on previous ECG as well in August 2019 Diarrhea pt reports diarrhea x 2 weeks prior to admission, no other abd sx or signs of infection stool culture, stool for cdiff -ordered on admission but not collected Discussed with nursing staff, as patient continues to complain of loose stools Stool studies obtained now, follow-up results likely culprit of hypomag/ electrolyte abnormalities (3) Hypomagnesemia: mag, 0.9 Replace and monitor likely secondary to prolonged diarrhea (4) Hypocalcemia: Calcium 6.8, may be in setting of low mag Obtain vitamin D and PTH levels Received 1 g calcium gluconate in ED Replace and monitor (5) Hyponatremia: Sodium 130 Held Lasix on admission Serum osm 271, urine osm 127 (low) and urine sodium 30 Received 1 L of IVF in ED Denies any excessive thirst or drinking Repeat sodium improved, also further discussed with nephrology (6) CAD (coronary artery disease): (7) CHF (congestive heart failure): (8) Aortic stenosis: Chronic HFrEF now w/ mild exacerbation Last echo 05/2020-EF 40 to 45%, left ventricular hypokinesis, moderate aortic valve stenosis, mild AR Continue ASA, statin, Imdur, Entresto, metoprolol if pt ok to take PO Held Lasix initially in setting of hyponatremia Daily weights, strict I's and O's Heart healthy diet CXR showing pulm. congestion pt received IV lasix Cardiology following (9) COPD (chronic obstructive pulmonary disease): No acute exacerbation Continue nebs (10) Smoking: Tobacco abuse will nicotine supplementation as patient has prior history of hallucinations with Chantix (11) BPH (benign prostatic hyperplasia): Continue finasteride and Flomax (12) DVT prophylaxis: Lovenox Dispo: PCU consult case management given 302 petition and possible placement needed Full code PCP: Dr. Junaid Gibbons Admission and Anticipated Discharge Date Admission Date: October 05, 2020 Subjective Patient seen in a follow-up of altered mental status Awake, cooperative, breathing on room air. He is sitting up in chair answering questions appropriately, however he still thinks that there were certainly people there in his house. No chest pain, shortness of breath, abdominal pain. Reports good appetite. Patient tells me that prior to his incident of hallucinations, he was having diarrhea for about 2 weeks, and he was taking multiple medications to stop d iarrhea. He is wondering if that could be contributing to his altered mental status. Stool studies were ordered on admission, however not collected. Discussed this with nursing staff. Reordered stool studies. Patient continues to complain of having loose stools. PT/OT ordered - recommend rehab CM aware Review of Systems Review of Systems: All systems reviewed & are unremarkable except as noted in HPI & below Constitutional: no fever and no chills Respiratory: no cough and no dyspnea Cardiovascular: no chest pain and no palpitations Gastrointestinal: + diarrhea/loose stools; no abdominal pain, no nausea and no vomiting Physical Exam Constitutional: WD/WN, vitals as above Eyes: PERRL, conjunctivae normal, anicteric sclerae ENMT: external ear and nose normal, oropharynx normal Neck: normal visual inspection Respiratory: normal respiratory effort, lungs clear to auscultation no respiratory distress and no labored breathing Auscultation: no wheezes Cardiovascular: Rate/Rhythm: regular rate Heart Sounds: + murmur (systolic) Chest (Breasts): Chest: normal inspection of chest Gastrointestinal (Abdomen): Inspection/Auscultation: abdomen normal to inspection Percussion/Palpation: abdomen soft; no guarding and abdomen not rigid Musculoskeletal: Head/Neck/Chest: normocephalic and head atraumatic Skin: + dry skin Neurologic: PERRL, EOMI, accommodation nl, no face palsy, no dysarthria moves all extremities Psychiatric: A+Ox3, euthymic affect (however insists that there were ppl in his house) Lymphatic: no lymphedema Results & Data Results & Data ([facility]) Vital Signs (Past 12 Hours) Vital Signs Temp Pulse Resp BP BP Pulse Ox 10/11/20 08:03 36.2 C L 80 18 122/72 91 10/11/20 07:28 76 16 94 10/11/20 03:14 36.2 C L 74 18 106/71 94 10/10/20 23:11 36.4 C L 77 18 115/73 94 Laboratory Results 10/11/20 10/11/20 10/11/20 Range/Units 07:30 07:22 07:22 WBC 5.32 (4.8-10.8) K/uL RBC 4.35 L (4.7-6.1) M/uL Hgb 13.1 L (14.0-18.0) g/dL Hct 38.2 L (42-52) % MCV 87.8 (80-100) fL MCH 30.1 (25-34) pg MCHC 34.3 (32-36) g/dL RDW Std Deviation 49.1 H (36.4-46.3) fL RDW Coeff of Deborah 15.3 H (11.5-14.5) % Plt Count 227 (130-400) K/uL MPV 9.7 (7.4-10.4) fL Sodium 134 L (136-145) mmol/L Potassium 3.9 (3.5-5.1) mmol/L Chloride 102 (98-107) mmol/L Carbon Dioxide 27 (21-32) mmol/L Anion Gap 5.0 (3-11) BUN 21 H (7-18) mg/dl Creatinine 0.84 (0.6-1.4) mg/dl Est Cr Clr Drug Dosing 76.7 ml/min Est GFR ( Amer) 97.2 Est GFR (Non-Af Amer) 83.9 BUN/Creatinine Ratio 24.4 H (10-20) Glucose 99 (70-99) mg/dl POC Glucose 108 H (70-99) mg/dl Calcium 9.0 (8.5-10.1) mg/dl Phosphorus 3.4 (2.5-4.9) mg/dl Magnesium 2.0 (1.8-2.4) mg/dl NT-Pro-B Natriuret Pep (0-1800) pg/ml Fld Lyme DNA (PCR) (Not Detected) Lyme Specimen Source 10/10/20 10/10/20 10/10/20 Range/Units 20:11 16:31 11:37 WBC (4.8-10.8) K/uL RBC (4.7-6.1) M/uL Hgb (14.0-18.0) g/dL Hct (42-52) % MCV (80-100) fL MCH (25-34) pg MCHC (32-36) g/dL RDW Std Deviation (36.4-46.3) fL RDW Coeff of Deborah (11.5-14.5) % Plt Count (130-400) K/uL MPV (7.4-10.4) fL Sodium (136-145) mmol/L Potassium (3.5-5.1) mmol/L Chloride (98-107) mmol/L Carbon Dioxide (21-32) mmol/L Anion Gap (3-11) BUN (7-18) mg/dl Creatinine (0.6-1.4) mg/dl Est Cr Clr Drug Dosing ml/min Est GFR ( Amer) Est GFR (Non-Af Amer) BUN/Creatinine Ratio (10-20) Glucose (70-99) mg/dl POC Glucose 119 H 107 H 112 H (70-99) mg/dl Calcium (8.5-10.1) mg/dl Phosphorus (2.5-4.9) mg/dl Magnesium (1.8-2.4) mg/dl NT-Pro-B Natriuret Pep (0-1800) pg/ml Fld Lyme DNA (PCR) (Not Detected) Lyme Specimen Source 10/10/20 10/07/20 Range/Units 06:51 16:08 WBC (4.8-10.8) K/uL RBC (4.7-6.1) M/uL Hgb (14.0-18.0) g/dL Hct (42-52) % MCV (80-100) fL MCH (25-34) pg MCHC (32-36) g/dL RDW Std Deviation (36.4-46.3) fL RDW Coeff of Deborah (11.5-14.5) % Plt Count (130-400) K/uL MPV (7.4-10.4) fL Sodium (136-145) mmol/L Potassium (3.5-5.1) mmol/L Chloride (98-107) mmol/L Carbon Dioxide (21-32) mmol/L Anion Gap (3-11) BUN (7-18) mg/dl Creatinine (0.6-1.4) mg/dl Est Cr Clr Drug Dosing ml/min Est GFR ( Amer) Est GFR (Non-Af Amer) BUN/Creatinine Ratio (10-20) Glucose (70-99) mg/dl POC Glucose (70-99) mg/dl Calcium (8.5-10.1) mg/dl Phosphorus (2.5-4.9) mg/dl Magnesium (1.8-2.4) mg/dl NT-Pro-B Natriuret Pep 3149 H (0-1800) pg/ml Fld Lyme DNA (PCR) Not detected (Not Detected) Lyme Specimen Source CSF Medications Administered Current Inpatient Medications Acetaminophen (Acetaminophen 325 Mg Tab) 650 mg PO Q4H PRN PRN Reason: Pain or Fever Stop: 11/04/20 12:26 Last Admin: 10/08/20 23:16 Dose: 650 mg Documented by: Al Hydrox/Mg Hydrox/Simethicone (Aluminum/Magnesium Susp 30 Ml Udc) 15 ml PO Q4H PRN PRN Reason: Dyspepsia Stop: 11/04/20 12:26 Albuterol (Albut/Ipratrop 3mg/0.5mg Neb 3 Ml Vial) 3 ml INH TID [facility] Stop: 11/04/20 08:59 Last Admin: 10/11/20 07:28 Dose: 3 ml Documented by: Aspirin (Aspirin 81 Mg Ectab) 162 mg PO QAM [facility] Stop: 11/04/20 08:59 Last Admin: 10/11/20 07:49 Dose: 162 mg Documented by: Atorvastatin Calcium (Atorvastatin 40 Mg Tab) 80 mg PO [facility] Stop: 11/04/20 20:59 Last Admin: 10/10/20 20:56 Dose: 80 mg Documented by: Divalproex Sodium (Divalproex Extended Release 250 Mg Tabcr) 750 mg PO BID [facility] Stop: 11/08/20 20:59 Last Admin: 10/11/20 07:50 Dose: 750 mg Documented by: Doxycycline Hyclate (Doxycycline Hyclate 100 Mg Cap) 100 mg PO BID [facility] Stop: 10/14/20 21:01 Last Admin: 10/11/20 07:50 Dose: 100 mg Documented by: Duloxetine HCl (Duloxetine Hcl 60 Mg Cap) 60 mg PO [facility] Stop: 11/04/20 20:59 Last Admin: 10/10/20 20:57 Dose: 60 mg Documented by: Duloxetine HCl (Duloxetine Hcl 30 Mg Cap) 30 mg PO [facility] Stop: 11/04/20 20:59 Last Admin: 10/10/20 20:59 Dose: 30 mg Documented by: Finasteride ([facility] 5 Mg Tab) [facility] [place] Stop: 11/04/20 08:59 Last Admin: 10/11/20 07:50 Dose: 5 mg Documented by: Folic Acid (Folic Acid 1 Mg Tab) [facility] [place] Stop: 11/08/20 08:59 Last Admin: 10/11/20 07:50 Dose: 1 mg Documented by: Furosemide (Furosemide 20 Mg Tab) [facility] [place] Stop: 11/10/20 08:59 Lorazepam (Ativan) 1 mg in 2 mls @ 2 mls/min IV Q4H PRN PRN Reason: Agitation Stop: 11/05/20 13:31 Last Admin: 10/07/20 07:47 Dose: 2 mls/min Documented by: Thiamine HCl 100 mg/ Syringe 10 mls @ 2 mls/[facility] [place] Stop: 11/10/20 08:59 Folic Acid 1 mg/ Syringe 10 mls @ 5 mls/min IV [facility] Stop: 11/10/20 08:59 Isosorbide Mononitrate (Isosorbide Boyd Extended Rel 60 Mg Tabcr) 60 mg PO [facility] Stop: 11/04/20 08:59 Last Admin: 10/11/20 07:49 Dose: 60 mg Documented by: Lactobacillus Acidoph/Casei/Rhamnos (Advanced Probiotic 1250 Mg Capsule) 2 cap PO DAILY [facility] Stop: 11/10/20 08:59 Loratadine (Loratadine 10 Mg Tab) 10 mg PO DAILY PRN PRN Reason: Allergy Symptoms Stop: 11/04/20 07:31 Magnesium Hydroxide (Magnesium Hydroxide Susp 30 Ml Udc) 30 ml PO Q12H PRN PRN Reason: Constipation Stop: 11/04/20 12:26 Metoprolol Succinate (Metoprolol Succ 25mg Ext Rel Tab) [facility] [place] Stop: 11/04/20 08:59 Last Admin: 10/11/20 07:49 Dose: 25 mg Documented by: Metoprolol Succinate (Metoprolol Succ 25mg Ext Rel Tab) 12.5 mg PO QPM [facility] Stop: 11/09/20 20:59 Last Admin: 10/10/20 20:57 Dose: 12.5 mg Documented by: Miscellaneous (Remove Nicoderm Patch) 1 ea N/A DAILY@0859 [facility] Stop: 11/06/20 08:58 Last Admin: 10/11/20 07:48 Dose: 1 ea Documented by: Multivitamins (Multivitamin Tab) 1 tab PO QAM [facility] Stop: 11/04/20 08:59 Last Admin: 10/11/20 07:49 Dose: 1 tab Documented by: Nicotine (Nicotine 14 Mg/24 Hr Patch) 14 mg TD QAM [facility] Stop: 11/05/20 05:34 Last Admin: 10/11/20 07:48 Dose: 14 mg Documented by: Nicotine Polacrilex (Nicotine Polacrilex 2 Mg Gum) 1 piece MT Q1H PRN PRN Reason: smoking urge Stop: 11/05/20 05:30 Last Admin: 10/08/20 21:39 Dose: 1 piece Documented by: Ondansetron HCl (Ondansetron Inj 2 Mg/Ml 2 Ml Vial) 4 mg IV Q6H PRN PRN Reason: Nausea Stop: 11/04/20 12:26 Polyethylene Glycol (Polyethylene (Miralax) 17 Gm Pack) 17 gm PO DAILY PRN PRN Reason: Constipation Stop: 11/04/20 12:26 Potassium Chloride (Potassium Chloride 10 Meq Tabcr) 10 meq PO BID [facility] Stop: 11/04/20 08:59 Last Admin: 10/11/20 07:49 Dose: 10 meq Documented by: Sacubitril/Valsartan (Sacubitril-Valsartan 24-26 Mg Tab) 1 tab PO BID [facility] Stop: 11/04/20 08:59 Last Admin: 10/11/20 07:50 Dose: 1 tab Documented by: Tamsulosin HCl (Tamsulosin Hcl 0.4 Mg Cap) 0.4 mg PO HS [facility] Stop: 11/04/20 20:59 Last Admin: 10/10/20 20:58 Dose: 0.4 mg Documented by: Thiamine HCl (Thiamine Hcl 100 Mg Tab) 100 mg PO QAM [facility] Stop: 11/08/20 08:59 Last Admin: 10/11/20 07:48 Dose: 100 mg Documented by: Trazodone HCl (Trazodone Hcl 100 Mg Tab) 50 mg PO HS [facility] Stop: 11/04/20 20:59 Last Admin: 10/10/20 20:59 Dose: 50 mg Documented by: (1) CAD (coronary artery disease) Coronary Disease-Associated Artery/Lesion type: [place] artery [place] vs. transplanted heart: [place] heart Associated angina: unspecified whether angina present Qualified Code(s): I25.10 - Atherosclerotic heart disease of [place] coronary artery without angina pectoris (2) CHF (congestive heart failure) Heart failure chronicity: acute on chronic Heart failure type: combined systolic and diastolic Qualified Code(s): I50.43 - Acute on chronic combined systolic (congestive) and diastolic (congestive) heart failure (3) Aortic stenosis Cardiac valve disease etiology: nonrheumatic Qualified Code(s): I35.0 - Nonrheumatic aortic (valve) stenosis
[2020-10-11] MEDS: ADVANCED PROBIOTIC 1250 MG CAPSULE PO SCH (09:52)
[2020-10-11] MEDS: CYANOCOBALAMIN 500 MCG TABLET (VITAMIN B-12) PO SCH (09:52)
[2020-10-11] MEDS: FOLIC ACID 1 MG in SYRINGE 9.8 ML IV SCH (09:53)
[2020-10-11] MEDS: THIAMINE HCL 100 MG in SYRINGE 9 ML IV SCH (09:53)
[2020-10-11] MEDS: FUROSEMIDE 20 MG TAB PO SCH (09:53)
[2020-10-11] MEDS: oxyCODONE HCL IR 5 MG TAB (IMMEDIATE RELEASE) PO PRN (11:37)
[2020-10-11] MEDS: LIDOCAINE 5% 1 PATCH TD SCH (12:18)
--- NOTE | 2020-10-11 12:55 | Cardiology Progress Note ---
Date of Service October 11, 2020 Assessment & Plan (1) Elevated troponin I level: Suspect type II event, demand ischemia in the setting of hypoxemia, known/fixed coronary disease with diagonal branch vessel occlusion per prior catheterization, volume overload/CHF, and sedation. ECG without significant ST changes however, nondiagnostic due to left bundle branch block pattern. Echocardiogram without change Patient recovering from acute delirium. Plan: Continue increased dose of metoprolol succinate 25 mg in the morning 12.5 mg in p.m. We will reduce isosorbide mononitrate to 30 mg/day given relative hypotension. Note currently on reduced dose of Entresto in comparison to outpatient dosing (previously on 4951) would continue reduced dose Should not restart Requip (2) LBBB (left bundle branch block): Intermittent left bundle branch block documented on prior ECG. Specifically, ECG performed on September 12, 2019 at 21:42 is nearly identical to the ECG performed during this admission. Ejection fraction 40-45% per most recent echocardiogram in May. Repeat ECG performed 10/06/2020, 10/07/20 unchanged. (3) Acute heart failure with reduced ejection fraction and diastolic dysfunction: Volume status stable Will likely resume oral furosemide in a.m. (4) Aortic stenosis: Moderate per most recent echocardiogram 05/2020. (5) Nonsustained ventricular tachycardia: (6) CAD (coronary artery disease): Most recent cardiac catheterization performed 09/12/2019 due to elevated troponins and congestive heart failure. First diagonal branch occlusion visualized filling late via left to left collaterals, otherwise, no significant obstructive coronary disease. (7) Electrolyte and fluid disorder: Per nephrology. Normal electrolytes today per a.m. labs. Admission and Anticipated Discharge Date Admission Date: October 05, 2020 Subjective Patient was seen and examined, chart, medications, telemetry reviewed. No cardiac complaints with patient lucid. Does complain of loose stools x24 hours. No dizziness or lightheadedness no syncope or near syncope no further hallucinations by his own description. No sustained arrhythmias on telemetry with prior short salvos of nonsustained VT Review of Systems Review of Systems: All systems reviewed & are unremarkable except as noted in HPI & below Physical Exam Constitutional: WD/WN, vitals as above Eyes: PERRL, conjunctivae normal, anicteric sclerae ENMT: external ear and nose normal, oropharynx normal Neck: trachea midline, no thyromegaly Respiratory: normal respiratory effort, lungs clear to auscultation Cardiovascular: Rate/Rhythm: regular rate and regular rhythm Heart Sounds: normal S1, normal S2 and + murmur (Grade 2/6 systolic, no diastolic); no gallop Palpation: normal PMI Vessels: normal carotid upstroke and radial pulses present; no JVD and no carotid bruit Extremities: no edema Gastrointestinal (Abdomen): normal bowel sounds, soft, nontender, no hepatosplenomegaly Musculoskeletal: no cyanosis or clubbing, extremities motor strength 5/5 Skin: no rashes, warm and dry Neurologic: PERRL, EOMI, accommodation nl, no face palsy, no dysarthria Psychiatric: A+Ox3, euthymic affect Orientation: alert and oriented x 3 Affect: + flat affect Results & Data ([facility]) Vital Signs (Past 12 Hours) Vital Signs Temp Pulse Pulse Pulse Resp BP BP 10/11/20 11:05 36.4 C L 77 18 91/53 L 10/11/20 08:03 36.2 C L 80 18 122/72 10/11/20 08:00 73 10/11/20 07:28 76 16 10/11/20 03:14 36.2 C L 74 18 106/71 Pulse Ox 10/11/20 11:05 94 10/11/20 08:03 91 10/11/20 08:00 10/11/20 07:28 94 10/11/20 03:14 94 Laboratory Results Laboratory Results - last 24 hr 10/07/20 10/10/20 10/10/20 16:08 16:31 20:11 WBC RBC Hgb Hct MCV MCH MCHC RDW Std Deviation RDW Coeff of Deborah Plt Count MPV Sodium Potassium Chloride Carbon Dioxide Anion Gap BUN Creatinine Est Cr Clr Drug Dosing Est GFR ( Amer) Est GFR (Non-Af Amer) BUN/Creatinine Ratio Glucose POC Glucose 107 H 119 H Calcium Phosphorus Magnesium Fld Lyme DNA (PCR) Not detected Lyme Specimen Source CSF 10/11/20 10/11/20 10/11/20 07:22 07:22 07:30 WBC 5.32 RBC 4.35 L Hgb 13.1 L Hct 38.2 L MCV 87.8 MCH 30.1 MCHC 34.3 RDW Std Deviation 49.1 H RDW Coeff of Deborah 15.3 H Plt Count 227 MPV 9.7 Sodium 134 L Potassium 3.9 Chloride 102 Carbon Dioxide 27 Anion Gap 5.0 BUN 21 H Creatinine 0.84 Est Cr Clr Drug Dosing 76.7 Est GFR ( Amer) 97.2 Est GFR (Non-Af Amer) 83.9 BUN/Creatinine Ratio 24.4 H Glucose 99 POC Glucose 108 H Calcium 9.0 Phosphorus 3.4 Magnesium 2.0 Fld Lyme DNA (PCR) Lyme Specimen Source 10/11/20 11:45 WBC RBC Hgb Hct MCV MCH MCHC RDW Std Deviation RDW Coeff of Deborah Plt Count MPV Sodium Potassium Chloride Carbon Dioxide Anion Gap BUN Creatinine Est Cr Clr Drug Dosing Est GFR ( Amer) Est GFR (Non-Af Amer) BUN/Creatinine Ratio Glucose POC Glucose 125 H Calcium Phosphorus Magnesium Fld Lyme DNA (PCR) Lyme Specimen Source (1) Aortic stenosis Cardiac valve disease etiology: nonrheumatic Qualified Code(s): I35.0 - Nonrheumatic aortic (valve) stenosis (2) CAD (coronary artery disease) Coronary Disease-Associated Artery/Lesion type: [place] artery [place] vs. transplanted heart: [place] heart Associated angina: unspecified whether angina present Qualified Code(s): I25.10 - Atherosclerotic heart disease of [place] coronary artery without angina pectoris
[2020-10-11] MEDS ORDERED: CALCIUM CARBONATE 500 MG CHEWABLE TAB PO ONE (18:53)
[2020-10-11] MEDS: traZODone HCL 100 MG TAB PO SCH (21:17)
[2020-10-11] MEDS: DULoxetine HCL 30 MG CAP PO SCH (21:17)
[2020-10-11] MEDS: TAMSULOSIN HCL 0.4 MG CAP PO SCH (21:18)
[2020-10-11] MEDS: DULoxetine HCL 60 MG CAP PO SCH (21:18)
[2020-10-11] MEDS: ATORVASTATIN 40 MG TAB PO SCH (21:19)
[2020-10-12] MEDS ORDERED: LOPERAMIDE HCL 2 MG CAP PO STA (03:30)
[2020-10-12] MEDS: LIDOCAINE 5% 1 PATCH TD SCH (07:33)
[2020-10-12] MEDS: MULTIVITAMIN TAB PO SCH (07:33)
[2020-10-12] MEDS: DIVALPROEX EXTENDED RELEASE 250 MG TABCR PO SCH ×2 (07:34→21:31)
[2020-10-12] MEDS: CYANOCOBALAMIN 500 MCG TABLET (VITAMIN B-12) PO SCH (07:34)
[2020-10-12] MEDS: POTASSIUM CHLORIDE 10 MEQ TABCR PO SCH ×2 (07:34→21:32)
[2020-10-12] MEDS: FUROSEMIDE 20 MG TAB PO SCH (07:34)
[2020-10-12] MEDS: ISOSORBIDE MONO EXTENDED REL 30 MG TABCR PO SCH (07:34)
[2020-10-12] MEDS: FOLIC ACID 1 MG in SYRINGE 9.8 ML IV SCH (07:35)
[2020-10-12] MEDS: FINASTERIDE 5 MG TAB PO SCH (07:35)
[2020-10-12] MEDS: SACUBITRIL-VALSARTAN 24-26 MG TAB PO SCH ×2 (07:35→21:32)
[2020-10-12] MEDS: NICOTINE 14 MG/24 HR PATCH TD SCH (07:35)
[2020-10-12] MEDS: THIAMINE HCL 100 MG in SYRINGE 9 ML IV SCH (07:35)
[2020-10-12] MEDS: ADVANCED PROBIOTIC 1250 MG CAPSULE PO SCH (07:35)
[2020-10-12] MEDS: ASPIRIN 81 MG ECTAB PO SCH (07:35)
[2020-10-12] MEDS: METOPROLOL SUCC 25MG EXT REL TAB PO SCH ×2 (07:36→21:31)
[2020-10-12] MEDS: oxyCODONE HCL IR 5 MG TAB (IMMEDIATE RELEASE) PO PRN (07:41)
--- NOTE | 2020-10-12 08:20 | Hospitalist Progress Note ---
Date of Service October 12, 2020 Assessment & Plan (1) Visual hallucination: (2) Paranoid delusion: This is a 79-year-old male who has significant past medical history of chronic HFrEF, CAD, HTN, HLD, moderate aortic stenosis, T2DM, COPD, long-term tobacco abuse, RLS, LS as with neurogenic claudication, LOLA not on CPAP, depression with anxiety, GERD who presents to ED via 302 petition by police secondary to visual hallucinations x1 day. Patient is alert and oriented x3 but with strong visual hallucinations that occurred yesterday while at home. Patient felt he saw multiple people in his house, "spraying webs," and also saw a "skinny, unsure of gender, person dressed in blue jeans and a red shirt," in his room. He had 2 loaded guns at bedside prior to going to bed. He denied any suicidal or homicidal ideations but was very frightened of the unknown individuals in house; therefore he called police. Police were unable to find anybody in the home. He was brought to ED on 302 petition. Initially felt to be medically stable but upon further lab evaluation was found to have severe electrolyte derangements and therefore medical admission was warranted. No prior history of psychiatric illness. Does have diagnosis depression with anxiety on epic. 1:1 prn consulted psychiatry correct electrolyte abnormalities, ? playing a role checked vit [id number] 721 (wnl), RPR- negative, TSH - wnl CT head negative hold narcotics, pt denies elicit drug use, drug tox screen negative no s/sx of infection, blood cultx - negative consider neuro eval if sx persist AM 10/06/20 AM, patient agitated, julianne christine was called, patient was placed in restraints, given Zyprexa. Continues to be agitated however/possibly somewhat confused, mumbling. Psychiatry consulted again, Given prolonged QTC, worried about Zyprexa. Per psychiatry, started on 500 IV Depakote/valproic acid, TID and ativan. 10/07 overnight continues to be agitated, required Zyprexa again. inspector screen printing received Ativan, then became calm. However some hours later developed frequent apnea and desaturated to 70s percent. He was started on BiPAP and ICU was contacted. Patient was transferred to ICU for further care and treatment. Currently sedated on Precedex drip , plan for LP. 10/08 Pt is awake but somewhat confused but cooperative. Per ICU provider, ok to downgrade from ICU now. LP obtained on 10/07/20. Absence of WBCs in the CSF, not likely meningitis. Recommend to obtain MRI, order CT head CTA head and neck. Continue thiamine and folic acid. Neurology consulted, appreciate their input. Brain MRI ordered 10/09 Patient sitting up in the chair, in no acute distress, cooperative, answering questions appropriately. However he does insist on seeing people in his house. LP consistent with traumatic tap. CSF cultx - negative. CSF Viral panel- negative. MRI does not show any new stroke, possibly old stroke. Neurology consulted, not likely meningitis or encephalitis. Recommend to continue valproic acid/Depakote for mood stabilization. Likely secondary to frontotemporal dementia. Patient also seen by psychiatry, feel that patient had delirium. Follow-up with psychiatry and neurology. Recommendations for delirium interventions noted. 10/10 Patient is to be back to baseline as far as mental status. Reports he was having diarrhea prior to his incident of hallucination. He was taking several medications to help with diarrhea. He is wondering if that could be contributing. Stool cultures were ordered on admission however not obtained. Discussed with nursing staff. Patient continues to complain of loose stools. Currently breathing on room air, will likely restart p.o. furosemide at lower dose in the morning depending on blood pressure. Will recheck chest x-ray and proBNP. BP on the lower side. 10/11 Mental status seems to be at the baseline. Stool studies obtained. Per cardiology isosorbide dose decreased due to low BP. PT recommending rehab, patient not interested, will need to discuss further with the family and 10/12 Mental status at baseline. Pt answering questions appropriately. Stool studies obtained. C diff negative. Discussed w/ cardiology - given low BP - DC on lower dose of Entresto and lower dose of furosemide. Recommend to cont. monitor loose stools. If stool cultx - negative pt may need Gi referral. Stop Requip on DC Depakote 750 BID per discussion w/neurology. Pt will need follow up w/ neuro and psych after DC Plan to DC to [facility] Elevated troponin - demand ischemia in the setting of hypoxemia, mild CHF exacerbation, no significant ECG changes - pt denies any chest pain however was sedated previously Acute heart failure with reduced ejection fraction and diastolic dysfunction -CXR w/ pulm. congestion, proBNP elevated Last echo 05/2020-EF 40 to 45%, left ventricular hypokinesis, moderate aortic valve stenosis, mild AR -received daily IV lasix 20 since 10/07 -pt was NPO d/t confusion/ sedation , now PO meds restarted -repeat CXR much improved -Current echo shows no significant change from previous. LV systolic function mildly reduced. EF 40 to 45%. Moderate concentric LVH. Aortic valve is moderately calcified. Moderate valvular aortic stenosis. Mild aortic regurg. Mild to moderate mitral regurg. -Cardiology following, most p.o. meds restarted, likely will restart furosemide in the morning. BP on lower side. We will recheck proBNP and chest x-ray. Patient is currently breathing comfortably on room air. Discussed w/ cardiology - given low BP recommend to DC on lower dose of Entresto and lower dose of lasix Intermittent LBBB Discussed w/ cardiology, LBBB is not new (despite ECG read on admission) - noted on previous ECG as well in August 2019 NSVT - cardiology following, cont. beta-maximino Diarrhea pt reports diarrhea x 2 weeks prior to admission, no other abd sx or signs of infection stool culture, stool for cdiff -ordered on admission but not collected Discussed with nursing staff, as patient continues to complain of loose stools Stool studies obtained now, follow-up results c. diff negative likely culprit of hypomag/ electrolyte abnormalities Cont. to monitor loose stools. If stool cultx negative, pt may need GI follow up as outpt (3) Hypomagnesemia: mag, 0.9 Replace and monitor likely secondary to prolonged diarrhea (4) Hypocalcemia: Calcium 6.8, may be in setting of low mag Obtain vitamin D and PTH levels Received 1 g calcium gluconate in ED Replace and monitor (5) Hyponatremia: Sodium 130 Held Lasix on admission Serum osm 271, urine osm 127 (low) and urine sodium 30 Received 1 L of IVF in ED Denies any excessive thirst or drinking Repeat sodium improved, also further discussed with nephrology (6) CAD (coronary artery disease): (7) CHF (congestive heart failure): Given low BP recommend to DC on lower dose of Entresto and lower dose of lasix (8) Aortic stenosis: Chronic HFrEF now w/ mild exacerbation Last echo 05/2020-EF 40 to 45%, left ventricular hypokinesis, moderate aortic valve stenosis, mild AR Continue ASA, statin, Imdur, Entresto, metoprolol if pt ok to take PO Held Lasix initially in setting of hyponatremia Daily weights, strict I's and O's Heart healthy diet CXR showing pulm. congestion pt received IV lasix Cardiology following (9) COPD (chronic obstructive pulmonary disease): No acute exacerbation Continue nebs (10) Smoking: Tobacco abuse will nicotine supplementation as patient has prior history of hallucinations with Chantix (11) BPH (benign prostatic hyperplasia): Continue finasteride and Flomax (12) DVT prophylaxis: Lovenox Dispo: Med/ Tele consult case management given 302 petition and possible placement nee ded Plan to DC to [facility] Full code PCP: Dr. Junaid Gibbons Admission and Anticipated Discharge Date Admission Date: October 05, 2020 Subjective Patient seen in a follow-up of altered mental status Awake, cooperative, breathing on room air. He is sitting up in chair answering questions appropriately, however he still thinks that there were certainly people there in his house. No chest pain, shortness of breath, abdominal pain. Reports good appetite. Patient tells me that prior to his incident of hallucinations, he was having diarrhea for about 2 weeks, and he was taking multiple medications to stop diarrhea. He is wondering if that could be contributing to his altered mental status. Stool studies ordered. Patient continues to complain of having loose stools. PT/OT ordered - recommend rehab CM aware - plan for [facility]. Review of Systems Review of Systems: All systems reviewed & are unremarkable except as noted in HPI & below Constitutional: no fever and no chills Respiratory: no cough and no dyspnea Cardiovascular: no chest pain and no palpitations Gastrointestinal: + diarrhea/loose stools; no abdominal pain, no nausea and no vomiting Physical Exam Constitutional: WD/WN, vitals as above Eyes: PERRL, conjunctivae normal, anicteric sclerae ENMT: external ear and nose normal, oropharynx normal Neck: normal visual inspection Respiratory: normal respiratory effort, lungs clear to auscultation no respiratory distress and no labored breathing Auscultation: no wheezes Cardiovascular: Rate/Rhythm: regular rate Heart Sounds: + murmur (systolic) Chest (Breasts): Chest: normal inspection of chest Gastrointestinal (Abdomen): Inspection/Auscultation: abdomen normal to inspection Percussion/Palpation: abdomen soft; no guarding and abdomen not rigid Musculoskeletal: Head/Neck/Chest: normocephalic and head atraumatic Skin: + dry skin Neurologic: PERRL, EOMI, accommodation nl, no face palsy, no dysarthria moves all extremities Psychiatric: A+Ox3, euthymic affect (however insists that there were ppl in his house) Lymphatic: no lymphedema Results & Data Results & Data ([facility]) Vital Signs (Past 12 Hours) Vital Signs Temp Pulse Pulse Resp BP BP Pulse Ox 10/12/20 06:49 36.5 C 68 18 122/72 95 10/12/20 02:00 36.4 C L 80 18 112/61 95 10/12/20 00:23 79 10/11/20 22:00 36.6 C 78 16 121/51 L 96 Laboratory Results 10/12/20 10/11/20 10/11/20 Range/Units 07:33 20:44 16:34 Sodium (136-145) mmol/L Potassium (3.5-5.1) mmol/L Chloride (98-107) mmol/L Carbon Dioxide (21-32) mmol/L Anion Gap (3-11) BUN (7-18) mg/dl Creatinine (0.6-1.4) mg/dl Est Cr Clr Drug Dosing ml/min Est GFR ( Amer) Est GFR (Non-Af Amer) BUN/Creatinine Ratio (10-20) Glucose (70-99) mg/dl POC Glucose 108 H 101 H 117 H (70-99) mg/dl Calcium (8.5-10.1) mg/dl Phosphorus (2.5-4.9) mg/dl Magnesium (1.8-2.4) mg/dl Stl C. diff Tox B Gene (Neg) 10/11/20 10/11/20 10/11/20 Range/Units 16:30 11:45 07:22 Sodium 134 L (136-145) mmol/L Potassium 3.9 (3.5-5.1) mmol/L Chloride 102 (98-107) mmol/L Carbon Dioxide 27 (21-32) mmol/L Anion Gap 5.0 (3-11) BUN 21 H (7-18) mg/dl Creatinine 0.84 (0.6-1.4) mg/dl Est Cr Clr Drug Dosing 76.7 ml/min Est GFR ( Amer) 97.2 Est GFR (Non-Af Amer) 83.9 BUN/Creatinine Ratio 24.4 H (10-20) Glucose 99 (70-99) mg/dl POC Glucose 125 H (70-99) mg/dl Calcium 9.0 (8.5-10.1) mg/dl Phosphorus 3.4 (2.5-4.9) mg/dl Magnesium 2.0 (1.8-2.4) mg/dl Stl C. diff Tox B Gene Negative Cdiff Gene (Neg) Medications Administered Current Inpatient Medications Acetaminophen (Acetaminophen 325 Mg Tab) 650 mg PO Q4H PRN PRN Reason: Pain or Fever Stop: 11/04/20 12:26 Last Admin: 10/08/20 23:16 Dose: 650 mg Documented by: Al Hydrox/Mg Hydrox/Simethicone (Aluminum/Magnesium Susp 30 Ml Udc) 15 ml PO Q4H PRN PRN Reason: Dyspepsia Stop: 11/04/20 12:26 Last Admin: 10/11/20 18:49 Dose: 15 ml Documented by: Aspirin (Aspirin 81 Mg Ectab) 162 mg PO [facility] Stop: 11/04/20 08:59 Last Admin: 10/12/20 07:35 Dose: 162 mg Documented by: Atorvastatin Calcium (Atorvastatin 40 Mg Tab) 80 mg PO [facility] Stop: 11/04/20 20:59 Last Admin: 10/11/20 21:19 Dose: 80 mg Documented by: Cyanocobalamin (Cyanocobalamin 500 Mcg Tablet (Vitamin B-12)) [facility] Stop: 11/10/20 08:59 Last Admin: 10/12/20 07:34 Dose: 1,000 mcg Documented by: Divalproex Sodium (Divalproex Extended Release 250 Mg Tabcr) 750 mg PO BID [facility] Stop: 11/08/20 20:59 Last Admin: 10/12/20 07:34 Dose: 750 mg Documented by: Duloxetine HCl (Duloxetine Hcl 60 Mg Cap) 60 mg PO [facility] Stop: 11/04/20 20:59 Last Admin: 10/11/20 21:18 Dose: 60 mg Documented by: Duloxetine HCl (Duloxetine Hcl 30 Mg Cap) 30 mg PO HS [facility] Stop: 11/04/20 20:59 Last Admin: 10/11/20 21:17 Dose: 30 mg Documented by: Finasteride (Finasteride 5 Mg Tab) 5 mg PO QAM [facility] Stop: 11/04/20 08:59 Last Admin: 10/12/20 07:35 Dose: 5 mg Documented by: Folic Acid (Folic Acid 1 Mg Tab) [facility] Stop: 11/08/20 08:59 Last Admin: 10/11/20 07:50 Dose: 1 mg Documented by: Furosemide (Furosemide 20 Mg Tab) 20 [facility] Stop: 11/10/20 08:59 Last Admin: 10/12/20 07:34 Dose: 20 mg Documented by: Lorazepam (Ativan) 1 mg in 2 mls @ 2 mls/min IV Q4H PRN PRN Reason: Agitation Stop: 11/05/20 13:31 Last Admin: 10/07/20 07:47 Dose: 2 mls/min Documented by: Thiamine HCl 100 mg/ Syringe 10 mls @ 2 mls/[facility] [place] Stop: 11/10/20 08:59 Last Admin: 10/12/20 07:35 Dose: 2 mls/min Documented by: Folic Acid 1 mg/ Syringe 10 mls @ 5 mls/[facility] Stop: 11/10/20 08:59 Last Admin: 10/12/20 07:35 Dose: 5 mls/min Documented by: Isosorbide Mononitrate (Isosorbide [place] Extended Rel 30 Mg Tabcr) 30 mg PO [facility] Stop: 11/11/20 08:59 Last Admin: 10/12/20 07:34 Dose: 30 mg Documented by: Lactobacillus Acidoph/Casei/Rhamnos (Advanced Probiotic 1250 Mg Capsule) 2 cap PO DAILY [facility] Stop: 11/10/20 08:59 Last Admin: 10/12/20 07:35 Dose: 2 cap Documented by: Lidocaine (Lidocaine 5% 1 Patch) 1 patch TD [facility] Stop: 11/10/20 11:29 Last Admin: 10/12/20 07:33 Dose: 1 patch Documented by: Loratadine (Loratadine 10 Mg Tab) 10 mg PO DAILY PRN PRN Reason: Allergy Symptoms Stop: 11/04/20 07:31 Metoprolol Succinate (Metoprolol Succ 25mg Ext Rel Tab) 25 mg PO QAM [facility] Stop: 11/04/20 08:59 Last Admin: 10/12/20 07:36 Dose: 25 mg Documented by: Metoprolol Succinate (Metoprolol Succ 25mg Ext Rel Tab) 12.5 mg PO QPM [facility] Stop: 11/09/20 20:59 Last Admin: 10/11/20 21:18 Dose: 12.5 mg Documented by: Miscellaneous (Remove Lidoderm Patch) 1 ea N/A DAILY@2100 [facility] Stop: 11/10/20 20:59 Last Admin: 10/11/20 21:19 Dose: 1 ea Documented by: Multivitamins (Multivitamin Tab) 1 tab [facility] Stop: 11/04/20 08:59 Last Admin: 10/12/20 07:33 Dose: 1 tab Documented by: Nicotine (Nicotine 14 Mg/24 Hr Patch) 14 mg TD [facility] Stop: 11/05/20 05:34 Last Admin: 10/12/20 07:35 Dose: 14 mg Documented by: Nicotine Polacrilex (Nicotine Polacrilex 2 Mg Gum) 1 piece MT Q1H PRN PRN Reason: smoking urge Stop: 11/05/20 05:30 Last Admin: 10/08/20 21:39 Dose: 1 piece Documented by: Ondansetron HCl (Ondansetron Inj 2 Mg/Ml 2 Ml Vial) 4 mg IV Q6H PRN PRN Reason: Nausea Stop: 11/04/20 12:26 Oxycodone HCl (Oxycodone Hcl Ir 5 Mg Tab (Immediate Release)) 5 mg PO Q6H PRN PRN Reason: Pain Stop: 10/25/20 11:20 Last Admin: 10/12/20 07:41 Dose: 5 mg Documented by: Polyethylene Glycol (Polyethylene (Miralax) 17 Gm Pack) 17 gm PO DAILY PRN PRN Reason: Constipation Stop: 11/04/20 12:26 Potassium Chloride (Potassium Chloride 10 Meq Tabcr) 10 meq PO BID [facility] Stop: 11/04/20 08:59 Last Admin: 10/12/20 07:34 Dose: 10 meq Documented by: Sacubitril/Valsartan (Sacubitril-Valsartan 24-26 Mg Tab) 1 tab PO BID [facility] Stop: 11/04/20 08:59 Last Admin: 10/12/20 07:35 Dose: 1 tab Documented by: Tamsulosin HCl (Tamsulosin Hcl 0.4 Mg Cap) 0.4 mg PO [facility] Stop: 11/04/20 20:59 Last Admin: 10/11/20 21:18 Dose: 0.4 mg Documented by: Thiamine HCl (Thiamine Hcl 100 Mg Tab) 100 mg PO QAM [facility] Stop: 11/08/20 08:59 Last Admin: 10/11/20 07:48 Dose: 100 mg Documented by: Trazodone HCl (Trazodone Hcl 100 Mg Tab) 50 mg PO [facility] Stop: 11/04/20 20:59 Last Admin: 10/11/20 21:17 Dose: 50 mg Documented by: (1) CAD (coronary artery disease) Coronary Disease-Associated Artery/Lesion type: [place] artery [place] vs. transplanted heart: [place] heart Associated angina: unspecified whether angina present Qualified Code(s): I25.10 - Atherosclerotic heart disease of [place] coronary artery without angina pectoris (2) CHF (congestive heart failure) Heart failure chronicity: acute on chronic Heart failure type: combined systolic and diastolic Qualified Code(s): I50.43 - Acute on chronic combined systolic (congestive) and diastolic (congestive) heart failure (3) Aortic stenosis Cardiac valve disease etiology: nonrheumatic Qualified Code(s): I35.0 - Nonrheumatic aortic (valve) stenosis
[2020-10-12 08:53] LABS: Hematocrit (blood only) 38.4 % (42-52); Hemoglobin 13.3 g/dL (14.0-18.0); Mean Corpuscular Hemoglobin 30.4 pg (25-34); Mean Corpuscular Hgb Conc 34.6 g/dL (32-36); Mean Corpuscular Volume 87.9 fL (80-100); Mean Platelet Volume 9.7 fL (7.4-10.4); Platelet Count 247 K/uL (130-400); RDW Coefficient of Variation 15.2 % (11.5-14.5); RDW Standard Deviation 48.6 fL (36.4-46.3); Red Blood Count 4.37 M/uL (4.7-6.1)
[2020-10-12 09:33] LABS: BUN Creatinine Ratio 19.6 (10-20); Calcium 9.1 mg/dl (8.5-10.1); Est GFR (African American) 94.9; Est GFR (Non-African American) 81.9; Magnesium 1.9 mg/dl (1.8-2.4); Potassium 4.3 mmol/L (3.5-5.1)
[2020-10-12] MEDS: ATORVASTATIN 40 MG TAB PO SCH (21:31)
[2020-10-12] MEDS: DULoxetine HCL 60 MG CAP PO SCH (21:31)
[2020-10-12] MEDS: DULoxetine HCL 30 MG CAP PO SCH (21:31)
[2020-10-12] MEDS: TAMSULOSIN HCL 0.4 MG CAP PO SCH (21:33)
[2020-10-12] MEDS: traZODone HCL 100 MG TAB PO SCH (21:33)
[2020-10-13 06:19] LABS: Hematocrit (blood only) 39.7 % (42-52); Hemoglobin 13.5 g/dL (14.0-18.0); Mean Corpuscular Hemoglobin 30.1 pg (25-34); Mean Corpuscular Volume 88.4 fL (80-100); Mean Platelet Volume 10.3 fL (7.4-10.4); Platelet Count 268 K/uL (130-400); RDW Coefficient of Variation 15.3 % (11.5-14.5); RDW Standard Deviation 48.8 fL (36.4-46.3); Red Blood Count 4.49 M/uL (4.7-6.1); White Blood Count 6.73 K/uL (4.8-10.8)
[2020-10-13 06:42] LABS: BUN Creatinine Ratio 21.2 (10-20); Calcium 8.7 mg/dl (8.5-10.1); Creatinine Clr Calc Pharmacy 68.3 ml/min; Est GFR (African American) 88.5; Est GFR (Non-African American) 76.4; Magnesium 1.9 mg/dl (1.8-2.4); Potassium 4.5 mmol/L (3.5-5.1)
[2020-10-13] MEDS: NICOTINE 14 MG/24 HR PATCH TD SCH (08:27)
[2020-10-13] MEDS: LIDOCAINE 5% 1 PATCH TD SCH (08:27)
[2020-10-13] MEDS: MULTIVITAMIN TAB PO SCH (08:28)
[2020-10-13] MEDS: METOPROLOL SUCC 25MG EXT REL TAB PO SCH (08:28)
[2020-10-13] MEDS: SACUBITRIL-VALSARTAN 24-26 MG TAB PO SCH (08:28)
[2020-10-13] MEDS: ADVANCED PROBIOTIC 1250 MG CAPSULE PO SCH (08:28)
[2020-10-13] MEDS: THIAMINE HCL 100 MG in SYRINGE 9 ML IV SCH (08:28)
[2020-10-13] MEDS: ASPIRIN 81 MG ECTAB PO SCH (08:28)
[2020-10-13] MEDS: FUROSEMIDE 20 MG TAB PO SCH (08:28)
[2020-10-13] MEDS: FOLIC ACID 1 MG in SYRINGE 9.8 ML IV SCH (08:28)
[2020-10-13] MEDS: POTASSIUM CHLORIDE 10 MEQ TABCR PO SCH (08:28)
[2020-10-13] MEDS: FINASTERIDE 5 MG TAB PO SCH (08:28)
[2020-10-13] MEDS: ISOSORBIDE MONO EXTENDED REL 30 MG TABCR PO SCH (08:28)
[2020-10-13] MEDS: CYANOCOBALAMIN 500 MCG TABLET (VITAMIN B-12) PO SCH (08:29)
[2020-10-13] MEDS: DIVALPROEX EXTENDED RELEASE 250 MG TABCR PO SCH (08:29)
[2020-10-13] MEDS: oxyCODONE HCL IR 5 MG TAB (IMMEDIATE RELEASE) PO PRN (08:35)
--- NOTE | 2020-10-13 14:28 | Hospitalist Progress Note ---
Date of Service October 13, 2020 Assessment & Plan (1) Visual hallucination: (2) Paranoid delusion: This is a 79-year-old male who has significant past medical history of chronic HFrEF, CAD, HTN, HLD, moderate aortic stenosis, T2DM, COPD, long-term tobacco abuse, RLS, LS as with neurogenic claudication, LOLA not on CPAP, depression with anxiety, GERD who presents to ED via 302 petition by police secondary to visual hallucinations x1 day. Patient is alert and oriented x3 but with strong visual hallucinations that occurred yesterday while at home. Patient felt he saw multiple people in his house, "spraying webs," and also saw a "skinny, unsure of gender, person dressed in blue jeans and a red shirt," in his room. He had 2 loaded guns at bedside prior to going to bed. He denied any suicidal or homicidal ideations but was very frightened of the unknown individuals in house; therefore he called police. Police were unable to find anybody in the home. He was brought to ED on 302 petition. Initially felt to be medically stable but upon further lab evaluation was found to have severe electrolyte derangements and therefore medical admission was warranted. No prior history of psychiatric illness. Does have diagnosis depression with anxiety on epic. 1:1 prn consulted psychiatry correct electrolyte abnormalities, ? playing a role checked vit [id number] 721 (wnl), RPR- negative, TSH - wnl CT head negative hold narcotics, pt denies elicit drug use, drug tox screen negative no s/sx of infection, blood cultx - negative consider neuro eval if sx persist AM 10/06/20 AM, patient agitated, julianne christine was called, patient was placed in restraints, given Zyprexa. Continues to be agitated however/possibly somewhat confused, mumbling. Psychiatry consulted again, Given prolonged QTC, worried about Zyprexa. Per psychiatry, started on 500 IV Depakote/valproic acid, TID and ativan. 10/07 overnight continues to be agitated, required Zyprexa again. 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 However some hours later developed frequent apnea and desaturated to 70s percent. He was started on BiPAP and ICU was contacted. Patient was transferred to ICU for further care and treatment. Currently sedated on Precedex drip , plan for LP. 10/08 Pt is awake but somewhat confused but cooperative. Per ICU provider, ok to downgrade from ICU now. LP obtained on 10/07/20. Absence of WBCs in the CSF, not likely meningitis. Recommend to obtain MRI, order CT head CTA head and neck. Continue thiamine and folic acid. Neurology consulted, appreciate their input. Brain MRI ordered 10/09 Patient sitting up in the chair, in no acute distress, cooperative, answering questions appropriately. However he does insist on seeing people in his house. LP consistent with traumatic tap. CSF cultx - negative. CSF Viral panel- negative. MRI does not show any new stroke, possibly old stroke. Neurology consulted, not likely meningitis or encephalitis. Recommend to continue valproic acid/Depakote for mood stabilization. Likely secondary to frontotemporal dementia. Patient also seen by psychiatry, feel that patient had delirium. Follow-up with psychiatry and neurology. Recommendations for delirium interventions noted. 10/10 Patient is to be back to baseline as far as mental status. Reports he was having diarrhea prior to his incident of hallucination. He was taking several medications to help with diarrhea. He is wondering if that could be contributing. Stool cultures were ordered on admission however not obtained. Discussed with nursing staff. Patient continues to complain of loose stools. Currently breathing on room air, will likely restart p.o. furosemide at lower dose in the morning depending on blood pressure. Will recheck chest x-ray and proBNP. BP on the lower side. 10/11 Mental status seems to be at the baseline. Stool studies obtained. Per cardiology isosorbide dose decreased due to low BP. PT recommending rehab, patient not interested, will need to discuss further with the family and 10/12 Mental status at baseline. Pt answering questions appropriately. Stool studies obtained. C diff negative. Discussed w/ cardiology - given low BP - DC on lower dose of Entresto and lower dose of furosemide. Recommend to cont. monitor loose stools. If stool cultx - negative pt may need Gi referral. Stop Requip on DC Depakote 750 BID per discussion w/neurology. Pt will need follow up w/ neuro and psych after DC Plan to DC to [facility] Elevated troponin - demand ischemia in the setting of hypoxemia, mild CHF exacerbation, no significant ECG changes - pt denies any chest pain however was sedated previously Acute heart failure with reduced ejection fraction and diastolic dysfunction -CXR w/ pulm. congestion, proBNP elevated Last echo 05/2020-EF 40 to 45%, left ventricular hypokinesis, moderate aortic valve stenosis, mild AR -received daily IV lasix 20 since 10/07 -pt was NPO d/t confusion/ sedation , now PO meds restarted -repeat CXR much improved -Current echo shows no significant change from previous. LV systolic function mildly reduced. EF 40 to 45%. Moderate concentric LVH. Aortic valve is moderately calcified. Moderate valvular aortic stenosis. Mild aortic regurg. Mild to moderate mitral regurg. -Cardiology following, most p.o. meds restarted, likely will restart furosemide in the morning. BP on lower side. We will recheck proBNP and chest x-ray. Patient is currently breathing comfortably on room air. Discussed w/ cardiology - given low BP recommend to DC on lower dose of Entresto and lower dose of lasix Intermittent LBBB Discussed w/ cardiology, LBBB is not new (despite ECG read on admission) - noted on previous ECG as well in August 2019 NSVT - cardiology following, cont. beta-maximino Diarrhea pt reports diarrhea x 2 weeks prior to admission, no other abd sx or signs of infection stool culture, stool for cdiff -ordered on admission but not collected Discussed with nursing staff, as patient continues to complain of loose stools Stool studies obtained now, follow-up results c. diff negative likely culprit of hypomag/ electrolyte abnormalities Cont. to monitor loose stools. If stool cultx negative, pt may need GI follow up as outpt (3) Hypomagnesemia: mag, 0.9 Replace and monitor likely secondary to prolonged diarrhea (4) Hypocalcemia: Calcium 6.8, may be in setting of low mag Obtain vitamin D and PTH levels Received 1 g calcium gluconate in ED Replace and monitor (5) Hyponatremia: Sodium 130 Held Lasix on admission Serum osm 271, urine osm 127 (low) and urine sodium 30 Received 1 L of IVF in ED Denies any excessive thirst or drinking Repeat sodium improved, also further discussed with nephrology (6) CAD (coronary artery disease): (7) CHF (congestive heart failure): Given low BP recommend to DC on lower dose of Entresto and lower dose of lasix (8) Aortic stenosis: Chronic HFrEF now w/ mild exacerbation Last echo 05/2020-EF 40 to 45%, left ventricular hypokinesis, moderate aortic valve stenosis, mild AR Continue ASA, statin, Imdur, Entresto, metoprolol if pt ok to take PO Held Lasix initially in setting of hyponatremia Daily weights, strict I's and O's Heart healthy diet CXR showing pulm. congestion pt received IV lasix Cardiology following (9) COPD (chronic obstructive pulmonary disease): No acute exacerbation Continue nebs (10) Smoking: Tobacco abuse will nicotine supplementation as patient has prior history of hallucinations with Chantix (11) BPH (benign prostatic hyperplasia): Continue finasteride and Flomax (12) DVT prophylaxis: Lovenox Dispo: Med/ Tele consult case management given 302 petition and possible placement nee ded Plan to DC to [facility] Full code PCP: Dr. Junaid Gibbons Admission and Anticipated Discharge Date Admission Date: October 05, 2020 Subjective Patient seen in a follow-up of altered mental status Awake, cooperative, breathing on room air. He is sitting up in chair answering questions appropriately, however he still thinks that there were certainly people there in his house. No chest pain, shortness of breath, abdominal pain. Reports good appetite. Patient tells me that prior to his incident of hallucinations, he was having diarrhea for about 2 weeks, and he was taking multiple medications to stop diarrhea. He is wondering if that could be contributing to his altered mental status. Stool studies ordered. Patient continues to complain of having loose stools. PT/OT ordered - recommend rehab CM aware - plan for [facility]. Results & Data Results & Data ([facility]) Vital Signs (Past 12 Hours) Vital Signs Temp Pulse Resp BP Pulse Ox 10/13/20 07:58 37.0 C 71 16 92/59 L 98 10/13/20 03:47 36.4 C L 75 20 157/76 H 97 Laboratory Results Short CBC 10/13/20 Range/Units 05:31 WBC 6.73 (4.8-10.8) K/uL Hgb 13.5 L (14.0-18.0) g/dL Hct 39.7 L (42-52) % Plt Count 268 (130-400) K/uL BMP 10/13/20 05:31 Sodium 131 L Potassium 4.5 Chloride 100 Carbon Dioxide 27 BUN 20 H Creatinine 0.95 Glucose 91 Calcium 8.7 Medications Administered Current Inpatient Medications Acetaminophen (Acetaminophen 325 Mg Tab) 650 mg PO Q4H PRN PRN Reason: Pain or Fever Stop: 11/04/20 12:26 Last Admin: 10/08/20 23:16 Dose: 650 mg Documented by: Al Hydrox/Mg Hydrox/Simethicone (Aluminum/Magnesium Susp 30 Ml Udc) 15 ml PO Q4H PRN PRN Reason: Dyspepsia Stop: 11/04/20 12:26 Last Admin: 10/11/20 18:49 Dose: 15 ml Documented by: Aspirin (Aspirin 81 Mg Ectab) [address] [facility] Stop: 11/04/20 08:59 Last Admin: 10/13/20 08:28 Dose: 162 mg Documented by: Atorvastatin Calcium (Atorvastatin 40 Mg Tab) 80 mg PO [facility] Stop: 11/04/20 20:59 Last Admin: 10/12/20 21:31 Dose: 80 mg Documented by: Cyanocobalamin (Cyanocobalamin 500 Mcg Tablet (Vitamin B-12)) 1,[address] [facility] Stop: 11/10/20 08:59 Last Admin: 10/13/20 08:29 Dose: 1,000 mcg Documented by: Divalproex Sodium (Divalproex Extended Release 250 Mg Tabcr) 750 mg PO BID [facility] Stop: 11/08/20 20:59 Last Admin: 10/13/20 08:29 Dose: 750 mg Documented by: Duloxetine HCl (Duloxetine Hcl 60 Mg Cap) 60 mg PO [facility] Stop: 11/04/20 20:59 Last Admin: 10/12/20 21:31 Dose: 60 mg Documented by: Duloxetine HCl (Duloxetine Hcl 30 Mg Cap) 30 mg PO [facility] Stop: 11/04/20 20:59 Last Admin: 10/12/20 21:31 Dose: 30 mg Documented by: Finasteride (Finasteride 5 Mg Tab) [address] [facility] Stop: 11/04/20 08:59 Last Admin: 10/13/20 08:28 Dose: 5 mg Documented by: Folic Acid (Folic Acid 1 Mg Tab) [facility] Stop: 11/08/20 08:59 Last Admin: 10/11/20 07:50 Dose: 1 mg Documented by: Furosemide (Furosemide 20 Mg Tab) [address] [facility] Stop: 11/10/20 08:59 Last Admin: 10/13/20 08:28 Dose: 20 mg Documented by: Lorazepam (Ativan) 1 mg in 2 mls @ 2 mls/min IV Q4H PRN PRN Reason: Agitation Stop: 11/05/20 13:31 Last Admin: 10/07/20 07:47 Dose: 2 mls/min Documented by: Thiamine HCl 100 mg/ Syringe 10 mls @ 2 mls/min IV [facility] Stop: 11/10/20 08:59 Last Admin: 10/13/20 08:28 Dose: 2 mls/min Documented by: Folic Acid 1 mg/ Syringe 10 mls @ 5 mls/min IV [facility] Stop: 11/10/20 08:59 Last Admin: 10/13/20 08:28 Dose: 5 mls/min Documented by: Isosorbide Mononitrate (Isosorbide [place] Extended Rel 30 Mg Tabcr) [address] [facility] Stop: 11/11/20 08:59 Last Admin: 10/13/20 08:28 Dose: 30 mg Documented by: Lactobacillus Acidoph/Casei/Rhamnos (Advanced Probiotic 1250 Mg Capsule) 2 cap PO DAILY [facility] Stop: 11/10/20 08:59 Last Admin: 10/13/20 08:28 Dose: 2 cap Documented by: Lidocaine (Lidocaine 5% 1 Patch) [address] [facility] Stop: 11/10/20 11:29 Last Admin: 10/13/20 08:27 Dose: 1 patch Documented by: Loratadine (Loratadine 10 Mg Tab) 10 mg PO DAILY PRN PRN Reason: Allergy Symptoms Stop: 11/04/20 07:31 Metoprolol Succinate (Metoprolol Succ 25mg Ext Rel Tab) [facility] Stop: 11/04/20 08:59 Last Admin: 10/13/20 08:28 Dose: 25 mg Documented by: Metoprolol Succinate (Metoprolol Succ 25mg Ext Rel Tab) 12.5 mg PO QPM [facility] Stop: 11/09/20 20:59 Last Admin: 10/12/20 21:31 Dose: 12.5 mg Documented by: Miscellaneous (Remove Lidoderm Patch) 1 ea N/A DAILY@2100 [facility] Stop: 11/10/20 20:59 Last Admin: 10/12/20 21:33 Dose: 1 ea Documented by: Multivitamins (Multivitamin Tab) 1 tab PO QAM [facility] Stop: 11/04/20 08:59 Last Admin: 10/13/20 08:28 Dose: 1 tab Documented by: Nicotine (Nicotine 14 Mg/24 Hr Patch) 14 mg TD QAM [facility] Stop: 11/05/20 05:34 Last Admin: 10/13/20 08:27 Dose: 14 mg Documented by: Nicotine Polacrilex (Nicotine Polacrilex 2 Mg Gum) 1 piece MT Q1H PRN PRN Reason: smoking urge Stop: 11/05/20 05:30 Last Admin: 10/08/20 21:39 Dose: 1 piece Documented by: Ondansetron HCl (Ondansetron Inj 2 Mg/Ml 2 Ml Vial) 4 mg IV Q6H PRN PRN Reason: Nausea Stop: 11/04/20 12:26 Oxycodone HCl (Oxycodone Hcl Ir 5 Mg Tab (Immediate Release)) 5 mg PO Q6H PRN PRN Reason: Pain Stop: 10/25/20 11:20 Last Admin: 10/13/20 08:35 Dose: 5 mg Documented by: Polyethylene Glycol (Polyethylene (Miralax) 17 Gm Pack) 17 gm PO DAILY PRN PRN Reason: Constipation Stop: 11/04/20 12:26 Potassium Chloride (Potassium Chloride 10 Meq Tabcr) 10 meq PO BID [facility] Stop: 11/04/20 08:59 Last Admin: 10/13/20 08:28 Dose: 10 meq Documented by: Sacubitril/Valsartan (Sacubitril-Valsartan 24-26 Mg Tab) 1 tab PO BID [facility] Stop: 11/04/20 08:59 Last Admin: 10/13/20 08:28 Dose: 1 tab Documented by: Tamsulosin HCl (Tamsulosin Hcl 0.4 Mg Cap) 0.4 mg PO [facility] Stop: 11/04/20 20:59 Last Admin: 10/12/20 21:33 Dose: 0.4 mg Documented by: Thiamine HCl (Thiamine Hcl 100 Mg Tab) 100 mg PO QAM [facility] Stop: 11/08/20 08:59 Last Admin: 10/11/20 07:48 Dose: 100 mg Documented by: Trazodone HCl (Trazodone Hcl 100 Mg Tab) 50 mg PO [facility] Stop: 11/04/20 20:59 Last Admin: 10/12/20 21:33 Dose: 50 mg Documented by: (1) CAD (coronary artery disease) Coronary Disease-Associated Artery/Lesion type: [place] artery [place] vs. transplanted heart: [place] heart Associated angina: unspecified whether angina present Qualified Code(s): I25.10 - Atherosclerotic heart disease of [place] coronary artery without angina pectoris (2) CHF (congestive heart failure) Heart failure chronicity: acute on chronic Heart failure type: combined systolic and diastolic Qualified Code(s): I50.43 - Acute on chronic combined systolic (congestive) and diastolic (congestive) heart failure (3) Aortic stenosis Cardiac valve disease etiology: nonrheumatic Qualified Code(s): I35.0 - Nonrheumatic aortic (valve) stenosis
--- NOTE | 2020-10-13 16:46 | Discharge Summary ---
Date of Service October 13, 2020 Admission HPI Per Admitting Provider This is a 79-year-old male who has significant past medical history of chronic HFrEF, CAD, HTN, HLD, moderate aortic stenosis, T2DM, COPD, long-term tobacco abuse, RLS, LS as with neurogenic claudication, LOLA not on CPAP, depression with anxiety, GERD who presents to ED via 302 petition by police secondary to visual hallucinations x1 day. Patient lives on his own but recently granddaughter has been staying with him and checks on him frequently. He states he was in his normal state of health until yesterday when he noticed people in his house, "spraying webs." He thought people were associated with granddaughter but is really unsure who they were. He told his granddaughter what he was seeing. Later that night when he was going to bed he went to his room, shot and locked his door. He then got to guns out of bedside drawer, loaded 1 and tried to go to sleep. When he tried to go to sleep he noticed somebody come in his room who was, "very skinny, in jeans and a red short, and then they disappeared." Patient was extremely frightened by somebody in his room who he did not know and he called 911. When 911 arrived he states the very skinny individual in jeans and a red shirt disappeared, he thinks maybe they went under his TV stand because they were so skinny. His granddaughter was very frightened. Due to visual hallucinations and loaded weapons at bedside police obtain 302 petition and brought patient to ED. Patient continues to smoke 1 pack a day but denies alcohol use. He states 25 years ago he was a heavy alcohol user but quit at the request of his . He denies any illicit drug use including marijuana or cocaine. He does use prescription opiates and states he takes 4 a day. He denies taking extra medications. He admits to being compliant with his medications and he is able to tell me what he is taking. He feels this is all very, "silly and calling the police was a mistake." "What I am seeing is there and nobody leaves me." He denies any recent illness, fever, chills, sweats, lightheadedness, dizziness, chest pain, shortness breath, cough, nausea, vomiting, abdominal pain, melena, hematochezia. He has been having episodes of diarrhea for the past 2 weeks. He admits to 3-4 bowel movements daily. He stopped taking his oral magnesium and this did improve slightly. He also has been taking Imodium with improvement. Per chart patient does have history of depression with anxiety but he denies any perfecto mental illness or psychiatric hospitalizations. He does take Cymbalta but elicits this is secondary to chronic back pain with radiculopathy. He denies any suicidal or homicidal ideations and had no intentions to hurt anyone with his guns. He was afraid secondary to an unknown stranger in his room. In ED patient remained hemodynamically stable. He was alert and oriented and able to answer all questions appropriately. He did have significant electrolyte abnormalities including magnesium 1.9, calcium 6.8, sodium 130. Lab work otherwise unremarkable and urine drug tox screen negative. CT of head was negative. Admission Exam Per Admitting Provider Constitutional: Elderly, male, sitting up in wheelchair, WD/WN, vitals as above, NAD, sitting up in bed, pleasant, conversing easily but slightly difficult to understand secondary edentulous Head: Normocephalic, Atraumatic Eyes: PERRL, conjunctivae normal, anicteric sclerae ENMT: external ear and nose normal, oropharynx normal Neck: trachea midline, no thyromegaly normal visual inspection Respiratory: normal respiratory effort, lungs clear to auscultation, no wheeze, rales, rhonchi. Normal insp/exp effort, no accessory muscle use Cardiovascular: RRR, 2/6 harsh RON noted RUSB, bilateral nonpitting ankle and pedal edema, no erythema Vessels: no JVD or carotid bruit Chest: normal inspection of chest Abdomen: normal bowel sounds, soft, nontender, no hepatosplenomegaly Musculoskeletal: no cyanosis or clubbing, extremities motor strength 5/5 Skin: no rashes, warm and dry normal turgor Neurologic: PERRL, EOMI, accommodation nl, no face palsy, no dysarthria CN's II-XI intact bilaterally and moves all extremities Psychiatric: A+Ox3, euthymic affect Lymphatic: no cervical or axillary lymphadenopathy : deferred Principal Diagnosis Acute hypoxemic respiratory failure Acute heart failure with reduced ejection fraction and diastolic dysfunction Demand ischemia Electrolyte and fluid disorder Left bundle branch block Nonsustained ventricular tachycardia Aortic stenosis Paranoid delusion Discharge Exam CONSTITUTIONAL: WNWD, vitals as above, generally well-appearing EYES: normal conjunctivae, no scleral icterus ENT: external ear and nose normal, MMM RESPIRATORY: clear to auscultation bilaterally, no crackles, rales or wheezes, normal respiratory effort CARDIOVASCULAR: regular rate and rhythm, 3/6 RON heard throughout precordium, gallops or rubs, no JVD, no peripheral edema GASTROINTESTINAL: soft, nontender, nondistended, no guarding MUSCULOSKELETAL: strength 5/5 throughout, head is normocephalic and atraumatic SKIN: warm and dry NEUROLOGIC: CN 2-12 grossly intact, normal cognition, normal speech, no tremor, no gross focal deficits. PSYCHIATRIC: alert cooperative and oriented to person, place and time. Discharge Data Allergies Allergy/AdvReac Type Severity Reaction Status Date / Time cefaclor Allergy Intermediate swelling Verified 10/05/20 01:44 aspirin Allergy Mild bleeding Verified 10/05/20 01:44 ulcer (tolerates 81mg) Consultations 10/05/20 10:31 ED Decision to Admit Stat 10/05/20 10:36 Consult Psychiatry Routine 10/06/20 08:33 Consult Cardiology Routine 10/06/20 09:05 Consult Nephrology Routine 10/07/20 08:56 Consult Neurology Routine 10/07/20 11:14 Consult Cheese Pancake Roller Stat 10/07/20 14:11 Consult Radiology Stat Ordered Studies Laboratory Results WBC 6.73 K/uL (4.8-10.8) 10/13/20 05:31 RBC 4.49 M/uL (4.7-6.1) L 10/13/20 05:31 Hgb 13.5 g/dL (14.0-18.0) L 10/13/20 05:31 POC Hgb 12.6 g/dl (14.0-18.0) L 10/07/20 23:49 Hct 39.7 % (42-52) L 10/13/20 05:31 POC Hct 37 % (42-52) L 10/07/20 23:49 MCV 88.4 fL (80-100) 10/13/20 05:31 MCH 30.1 pg (25-34) 10/13/20 05:31 MCHC 34.0 g/dL (32-36) 10/13/20 05:31 RDW Std Deviation 48.8 fL (36.4-46.3) H 10/13/20 05:31 RDW Coeff of Deborah 15.3 % (11.5-14.5) H 10/13/20 05:31 Plt Count 268 K/uL (130-400) 10/13/20 05:31 MPV 10.3 fL (7.4-10.4) 10/13/20 05:31 Immature Gran % (Auto) 0.2 % 10/05/20 01:23 Neut % (Auto) 67.4 % 10/05/20 01:23 Lymph % (Auto) 23.2 % 10/05/20 01:23 Meagher % (Auto) 7.2 % 10/05/20 01:23 Eos % (Auto) 1.6 % 10/05/20 01:23 Baso % (Auto) 0.4 % 10/05/20 01:23 Neut # (Auto) 5.57 K/uL (1.4-6.5) 10/05/20 01:23 Lymph # (Auto) 1.91 K/uL (1.2-3.4) 10/05/20 01:23 Meagher # (Auto) 0.59 K/uL (0.11-0.59) 10/05/20 01:23 Eos # (Auto) 0.13 K/uL (0-0.5) 10/05/20 01:23 Baso # (Auto) 0.03 K/uL (0-0.2) 10/05/20 01:23 Immature Gran # (Auto) 0.02 K/uL (0.00-0.02) 10/05/20 01:23 PT 10.9 Seconds (9.0-12.0) 10/07/20 12:11 INR 1.1 (0.9-1.1) 10/07/20 12:11 APTT 25.0 Seconds (21.0-31.0) 10/07/20 12:11 PTT Ratio 1.0 10/07/20 12:11 POC pH 7.43 (7.35-7.45) 10/07/20 23:49 POC pCO2 40 mmHg (35-46) 10/07/20 23:49 POC pO2 114 mmHg (80-95) H 10/07/20 23:49 POC HCO3 26 tj/L (19-24) H 10/07/20 23:49 POC Total CO2 28 mmol/L (24-31) 10/07/20 23:49 POC Base Excess 2.0 tj/L (-9-1.8) H 10/07/20 23:49 ABG pH 7.45 (7.35-7.45) 10/06/20 17:38 ABG pCO2 33 mmHg (35-46) L 10/06/20 17:38 ABG pO2 60 mmHg (80-95) L 10/06/20 17:38 ABG HCO3 22 mmol/L (19-24) 10/06/20 17:38 POC ABG O2 Sat 99.0 % (90-95) H 10/07/20 23:49 ABG O2 Saturation 91.6 % (90-95) 10/06/20 17:38 ABG Base Excess -1.1 mEq/L (-9-1.8) 10/06/20 17:38 Suhail Test POS (Pos) 10/06/20 17:38 Barometric Pressure 729.1 mm/Hg 10/06/20 17:38 Oxygen Given ROOM AIR 10/06/20 17:38 POC Sodium 143 mmol/L (135-144) 10/07/20 23:49 Sodium 131 mmol/L (136-145) L 10/13/20 05:31 POC Potassium 3.9 mmol/L (3.3-5.0) 10/07/20 23:49 Potassium 4.5 mmol/L (3.5-5.1) 10/13/20 05:31 Chloride 100 mmol/L (98-107) 10/13/20 05:31 Carbon Dioxide 27 mmol/L (21-32) 10/13/20 05:31 Anion Gap 4.0 (3-11) 10/13/20 05:31 BUN 20 mg/dl (7-18) H 10/13/20 05:31 Creatinine 0.95 mg/dl (0.6-1.4) 10/13/20 05:31 Est Cr Clr Drug Dosing 68.3 ml/min 10/13/20 05:31 Est GFR ( Amer) 88.5 10/13/20 05:31 Est GFR (Non-Af Amer) 76.4 10/13/20 05:31 BUN/Creatinine Ratio 21.2 (10-20) H 10/13/20 05:31 Glucose 91 mg/dl (70-99) 10/13/20 05:31 POC Glucose 106 mg/dl (70-99) H 10/13/20 11:38 Osmolality 271 mOsm/kg (280-300) L 10/05/20 13:01 Calcium 8.7 mg/dl (8.5-10.1) 10/13/20 05:31 Phosphorus 3.4 mg/dl (2.5-4.9) 10/11/20 07:22 Magnesium 1.9 mg/dl (1.8-2.4) 10/13/20 05:31 Total Bilirubin 0.6 mg/dl (0.2-1) 10/08/20 04:19 AST 48 U/L (15-37) H 10/08/20 04:19 ALT 33 U/L (12-78) 10/08/20 04:19 Alkaline Phosphatase 74 U/L (45-117) 10/08/20 04:19 Ammonia 35.7 umol/L (11-32) H 10/07/20 12:11 Total Creatine Kinase 1323 U/L (39-308) H 10/07/20 12:11 Troponin I 1.520 ng/ml (0-0.045) H* 10/08/20 00:21 NT-Pro-B Natriuret Pep 3149 pg/ml (0-1800) H 10/10/20 06:51 Total Protein 7.2 gm/dl (6.4-8.2) 10/08/20 04:19 Albumin 3.1 gm/dl (3.4-5.0) L 10/08/20 04:19 Globulin 4.1 gm/dl (2.5-4.0) H 10/08/20 04:19 Albumin/Globulin Ratio 0.8 (0.9-2) L 10/08/20 04:19 Vitamin B12 721 pg/ml (193-986) 10/05/20 13:01 25-OH Vitamin D Total 32.6 ng/ml (30-100) 10/05/20 13:01 Procalcitonin < 0.05 ng/ml (0-0.5) 10/09/20 09:20 TSH 0.524 uIu/ml (0.300-4.500) 10/05/20 01:23 PTH Intact 78.0 pg/ml (18.4-80.1) 10/05/20 13:01 Urine Color Yellow 10/05/20 02:00 Urine Appearance Clear (Clear) 10/05/20 02:00 Urine pH 6.5 (4.5-7.5) 10/05/20 02:00 Ur Specific [place] 1.010 (1.000-1.030) 10/05/20 02:00 Urine Protein Trace (Negative) H 10/05/20 02:00 Urine Glucose (UA) Negative (Negative) 10/05/20 02:00 Urine Ketones Negative (Negative) 10/05/20 02:00 Urine Blood Negative (Negative) 10/05/20 02:00 Urine Nitrite Negative (Negative) 10/05/20 02:00 Urine Bilirubin Negative (Negative) 10/05/20 02:00 Urine Urobilinogen Negative (Negative) 10/05/20 02:00 Ur Leukocyte Esterase Negative (Negative) 10/05/20 02:00 Urine WBC (Auto) 1-5 /hpf (0-5) 10/05/20 02:00 Urine RBC (Auto) 5-10 /hpf (0-4) H 10/05/20 02:00 U Hyaline Cast (Auto) 0 /lpf (0-5) 10/05/20 02:00 U Epithel Cells (Auto) 10-20 /lpf (0-5) H 10/05/20 02:00 Urine Bacteria (Auto) Negative (Negative) 10/05/20 02:00 Urine Osmolality 127 mOsm/kg (500-800) L 10/05/20 16:40 Ur Random Sodium 30 mmol/L 10/05/20 16:40 Fld Lyme DNA (PCR) Not detected (Not Detected) 10/07/20 16:08 Fluid Comment 10/07/20 16:08 CSF Appearance Bloody 10/07/20 16:08 CSF Color Red 10/07/20 16:08 Xanthrochromic No xanthochromia 10/07/20 16:08 CSF WBC 0 /uL (0-5) 10/07/20 16:08 CSF RBC 7650 /uL (0-) 10/07/20 16:08 CSF Cell Count Tube # 3 10/07/20 16:08 CSF Chemistry Tube # 1 10/07/20 16:08 CSF Glucose 75 mg/dl (40-70) H 10/07/20 16:08 CSF Lactate 2.9 mmol/L (0.6-2.2) H 10/07/20 16:08 CSF Total Protein 407.6 mg/dl (15-45) H 10/07/20 16:08 CSF C.neoform/gat PCR Not Detected (NotDetected) 10/07/20 16:08 CSF CMV DNA (PCR) Not Detected (NotDetected) 10/07/20 16:08 CSF Enterovirus (PCR) Not Detected (NotDetected) 10/07/20 16:08 CSF E. coli K1 (PCR) Not Detected (NotDetected) 10/07/20 16:08 CSF H. influenzae (PCR) Not Detected (NotDetected) 10/07/20 16:08 CSF HSV I (PCR) Not Detected (NotDetected) 10/07/20 16:08 CSF HSV II (PCR) Not Detected (NotDetected) 10/07/20 16:08 CSF HHV 6 (PCR) Not Detected (NotDetected) 10/07/20 16:08 CSF L.monocytogenes PCR Not Detected (NotDetected) 10/07/20 16:08 CSF N. meningitidis PCR Not Detected (NotDetected) 10/07/20 16:08 CSF Parechovirus (PCR) Not Detected (NotDetected) 10/07/20 16:08 CSF S. agalactiae (PCR) Not Detected (NotDetected) 10/07/20 16:08 CSF S. pneumoniae (PCR) Not Detected (NotDetected) 10/07/20 16:08 CSF VZV DNA (PCR) Not Detected (NotDetected) 10/07/20 16:08 Nasal Screen MRSA (PCR) Negative (Negative) 10/07/20 11:55 Stl C. diff Tox B Gene Negative Cdiff Gene (Neg) 10/11/20 16:30 Salicylates 5.1 mg/dl (2.8-20) 10/05/20 01:23 Urine Opiates Screen Neg (Neg) 10/05/20 02:00 Ur Methadone, Qual Neg (Neg) 10/05/20 02:00 Acetaminophen < 2 ug/ml (10-30) L 10/05/20 01:23 Urine Barbiturates Neg (Neg) 10/05/20 02:00 Valproic Acid 34 mcg/ml (50-100) L 10/07/20 12:11 Ur Phencyclidine (PCP) Neg (Neg) 10/05/20 02:00 U Amphetamin/Meth Scrn Neg (Neg) 10/05/20 02:00 MDMA (Ecstasy) Screen Neg (Neg) 10/05/20 02:00 U Benzodiazepines Scrn Neg (Neg) 10/05/20 02:00 Ur Cocaine Metabolite Neg (Neg) 10/05/20 02:00 U Marijuana (THC) Screen Neg (Neg) 10/05/20 02:00 Ethyl Alcohol mg/dL < 3.0 mg/dl (0-3) 10/05/20 01:23 RPR Nonreactive (Nonreactive) 10/05/20 13:01 Lyme Specimen Source CSF 10/07/20 16:08 COVID-19 Eval Order CovFluRsv at [facility] 10/05/20 Unknown SARS-CoV-2 (PCR) NEGATIVE (Negative) 10/05/20 Unknown Influenza Type A (PCR) Negative (Neg) 10/05/20 Unknown Influenza Type B (PCR) Negative (Neg) 10/05/20 Unknown RSV (RT-PCR) Negative (Neg) 10/05/[address] 10/05/20 00:50 CT OF THE HEAD WITHOUT CONTRAST CLINICAL HISTORY: falls, psychosis COMPARISON STUDY: Head CT June 12, 2019. CT DOSE: 829.26 mGy.cm TECHNIQUE: Helical axial images of the head were obtained without IV contrast. Automated exposure control was utilized for the study. A dose lowering technique was utilized adhering to the principles of ALARA. FINDINGS: No acute intracranial hemorrhage, midline shift or mass effect is present. White matter hypodensities suggest small vessel disease. The ventricular system is unremarkable. The basal cisterns are patent. No extra- axial collections are present. There are no findings to suggest acute dural sinus thrombosis or acute territorial infarct. No significant calvarial abnormalities are present. There is mild ethmoid sinus mucosal thickening. IMPRESSION: No acute intracranial findings. ACT 112: Negative or not required by law. Electronically signed by: Lionel Sprague M.D. 10/05/2020 6:51 AM Lumbar Puncture Fluoroscopy 10/07/20 14:22 FLUOROSCOPICALLY GUIDED LUMBAR PUNCTURE CLINICAL HISTORY: AMS, decreased responsiveness, hallucinations FLUOROSCOPY TIME: 1 minute and 48 seconds. NUMBER OF FLUOROSCOPIC IMAGES: 6. PROCEDURE: Given patient's altered mental status, the procedure, risks and benefits were discussed with the patient's son including the risk of spinal headache, bleeding and infection. The patient's son agreed to the procedure and informed written consent was obtained. The procedure was performed by Dr. Sprague following a timeout. The right L4-L5 interlaminar space was targeted. Skin overlying the space was prepped and draped in sterile fashion and local anesthesia was achieved with 1% lidocaine. Under intermittent fluoroscopic guidance, a 5 inch, 22-gauge spinal needle was directed into the thecal sac. There was return of only a small amount of cerebrospinal fluid. Therefore, the right L3-L4 interlaminar space was targeted with a 20-gauge 5 inch needle. CSF was initially blood-tinged but quickly cleared. A total of 6.5 cc of CSF was collected in 4 vials and sent to the laboratory as ordered. The needle was removed. The patient tolerated the procedure well and no immediate complications were evident. IMPRESSION: Successful fluoroscopically guided lumbar puncture with collection of 6.5 cc of cerebrospinal fluid which was sent to the laboratory for analysis as ordered. CSF initially blood tinged but quickly cleared. ACT 112: Negative or not required by law. Electronically signed by: Lionel Sprague M.D. 10/07/2020 4:59 PM Brain MRI 10/08/20 10:04 Brain MRI WITHOUT CONTRAST HISTORY: Altered mental status. Visual hallucinations. TECHNIQUE: Multiplanar multisequence MRI of the brain was performed without the use of contrast. COMPARISON STUDY: Head CT 10/05/2020. FINDINGS: Significant motion artifact resulting in suboptimal evaluation of the brain. There is a 2 cm hypointense focus within the right anterior temporal lobe with associated encephalomalacia. This suggests old hemorrhage in the setting of prior trauma or an old infarct. Evidence for bilateral lens replacement. Small retention cyst within the left maxillary sinus. The mastoid air cells are clear. The major vascular flow voids at the skull base are well-maintained. The ventricles and sulci demonstrate mild age-related involutional changes. Periventricular white matter T2 hyperintensity is nonspecific but favors mild microvascular ischemic change. No definite mass, acute hematoma, midline shift. IMPRESSION: 1. Suboptimal study due to motion artifact. No definite acute intracranial abnormality. 2. A 2 cm focus of encephalomalacia with associated hypointense signal suggesting hemosiderin. This is likely due to an old infarct or old trauma. ACT 112: Negative or not required by law. Electronically signed by: Chandu Bone M.D. 10/08/2020 11:57 AM Chest X-Ray 10/10/20 09:19 XR chest 1V portable CLINICAL HISTORY: Shortness of breath, pneumonia, follow-up study COMPARISON STUDY: 10/08/2020 FINDINGS: The heart remains enlarged. There is resolving pulmonary vascular congestion. Left basilar opacities are likely atelectatic[ IMPRESSION: Cardiomegaly and resolving pulmonary vascular congestion. Left basilar atelectatic changes. ACT 112: Negative or not required by law. Electronically signed by: Frank Montoya M.D. 10/10/2020 10:56 AM Hospital Course (1) Acute hypoxemic respiratory failure: (2) Acute heart failure with reduced ejection fraction and diastolic dysfunction: (3) Demand ischemia: (4) Electrolyte and fluid disorder: (5) LBBB (left bundle branch block): (6) Nonsustained ventricular tachycardia: (7) Aortic stenosis: (8) Paranoid delusion: The patient is a 79-year-old man who was brought to the ER with paranoid delusions. He was brought in by police on a 302 petition secondary to visual hallucinations after contacting the police out of fear someone was in his home. He denied SI or HI. He was admitted to the hospital service for management of delusions and with electrolyte abnormalities including hyponatremia and hypomagnesemia. Psychiatry was consulted and felt the acute paranoid delusions were less likely directly related to a primary psychiatric condition and more likely associated with an organic etiology. Additionally it was considered highly unlikely the patient was developing a new onset thought disorder at his age. Possible narcolepsy or other sleep disorder was suggested in the differential. A CT head without contrast revealed no acute intracranial findings on 10/05. Later during the hospitalization and brain MRI revealed a suboptimal reading without any acute intracranial abnormality. A small focus of what was considered to be hemosiderin was seen. He did become delirious and was started on Depakote in an attempt to manage persistent agitation. He did require Ativan and Zyprexa during the hospitalization. On 10/07 he received Ativan, and several hours later developed frequent apnea with oxygen desaturation into the 70s percent. He was started on BiPAP and was transferred to the ICU for further care and treatment. The suspected primary precipitating factor for poor responsiveness and decreased respiratory drive was oversedation. Other contributing factors included dementia, hypercapnia, and volume overload. He was sedated on Precedex drip and a lumbar puncture was performed on 10/07/2020. CSF Lyme studies were pending at time of discharge. LP was negative for evidence of bacterial meningitis. HSV PCR was negative as well. All antibiotics were discontinued and he was transferred back up to the floor. During this hospitalization cardiology was also consulted for recommendations of an elevated troponin level which was suspected to be related to demand ischemia in the setting of hypoxemia with known fixed coronary disease, volume overload, and sedation. EKG was without significant changes however this was nondiagnostic due to left bundle branch block pattern. His echocardiogram this admission was without any changes. His beta-maximino was increased slightly with an additional 12.5 added in the evenings. For his acute heart failure with reduced ejection fraction and diastolic dysfunction (EF 40 to 45%) he did receive diuretic therapy this admission. He does have known aortic stenosis graded as moderate per most recent echocardiogram on May 2020. Nonsustained ventricular tachycardia was noted on telemetry and metoprolol therapy and electrolyte replacement was given. At time of discharge she was hemodynamically stable and afebrile and oxygenating well on room air. He was mentating at baseline and ambulating close to baseline and was tolerating p.o. He was discharged to rehab in stable condition as a transition back home. Close primary care follow-up is recommended. Additionally, close neurology follow-up was recommended given the new addition of Depakote to his regimen for further management as outpatient. CSF Lyme studies were pending at time of discharge instructed followed up with primary care provider. Total Time Total Time Spent Total Time Spent (In Minutes): 60 Total Time Includes: Examination of the Patient, Discharge Planning, Medication Reconciliation and Communication With Other Providers Discharge Plan Discharge Items Patient Disposition: Transfer Inpatient Rehab Fac Reason For Visit: CONFUSION,HYPOMAGNESEMIA,HYPONATREMIA,HYPOCALCEMIA Activity: As commented below Activity Comment: per receiving facility Non-emergency contact: Primary Care Provider Call non-emergency contact if: you have any medication questions, your symptoms worsen, your pain is not controlled and your pain is worsening Follow-up/Referrals: Salas Gibbons, [Primary Care Provider] - Diet: Carb Consistent or DM2 Diet Texture: Easy to Chew Addtl Attending Provider Instructions: Please take all medications as instructed on discharge list below. It is advised that you follow-up with your primary care physician within 1 week of discharge from the rehab facility. You are on several new medications that need to be monitored, and this follow-up appointment will be important to place any referrals needed for continued care in the outpatient setting. It is also advised that you follow-up with [facility] Neurology after discharge as you are now on a new medication that needs to be monitored called Depakote. Levels of this drug will need to be monitored periodically. Neurology is the specialist that will manage this. Psychiatric referral is also recommended as outpatient, which may be placed by your primary care provider. Per our conversation, there is a [facility] Audiology clinic in [place], [place] ([facility]) and they can likely direct you to more local [facility] Audiology services here in [place]. Their number is [phone]. You can also get a referral for a hearing test through your primary care provider. As we also discussed, please stick to a low lactose or dairy -free diet for at least two weeks to see if this improves your diarrhea symptoms. It was a pleasure taking care of you! Please call if you have any questions or problems. You can reach a [facility] hospitalist on duty at [facility] 24 hours a day by calling [phone]. Take care of yourself. Radha Shah, [facility] Hospitalist Pending Studies at Discharge: No Stand-Alone Forms: My [facility] Skilled Items Patient informed of condition?: Yes DNR: No Discharge Level of Care: Acute rehab Communicable Disease: No Discharge Prognosis: Stable Lines: None Urinary Catheter: No Medications and DC Order Prescriptions: New isosorbide mononitrate 30 mg Tablet Extended Release 24 Hr 30 mg PO QAM Qty: 30 RF: 0 metoprolol succinate 25 mg Tablet Extended Release 24 Hr 12.5 mg PO QPM Qty: 30 RF: 0 divalproex 250 mg Tablet Extended Release 24 Hr 750 mg PO BID Qty: 180 RF: 0 furosemide 20 mg Tablet 20 mg PO QAM Qty: 30 RF: 0 Continued multivitamin Tablet 1 tab PO QAM RF: 0 atorvastatin [Lipitor] 80 mg Tablet 80 mg PO HS RF: 0 tamsulosin [Flomax] 0.4 mg Capsule 0.4 mg PO HS RF: 0 trazodone 100 mg Tablet 50 mg PO HS RF: 0 nitroglycerin [Nitrostat] 0.4 mg Tablet, Sublingual 0.4 mg sublingual UD PRN (Reason: Chest Pain) RF: 0 fluticasone propionate [Flonase Allergy Relief] 50 mcg/actuation [place],Suspension 2 spray INTRANASAL DAILY RF: 0 finasteride [Proscar] 5 mg Tablet 5 mg PO QAM RF: 0 loratadine [Claritin] 10 mg Tablet 10 mg PO DAILY PRN (Reason: Allergy Symptoms) RF: 0 omeprazole 20 mg Tablet,Delayed Release (Dr/Ec) 20 mg PO BID RF: 0 hydrocortisone [Proctosol HC] 2.5 % cream with perineal applicator 1 applic [place] QPM PRN (Reason: Hemorrhoids) RF: 0 oxycodone-acetaminophen [Percocet] 5-325 mg tablet 1 tab PO Q6H PRN (Reason: Pain) RF: 0 ipratropium-albuterol 0.5 mg-3 mg(2.5 mg base)/3 mL solution for nebulization 3 ml INHALATION TID RF: 0 duloxetine 60 mg capsule,delayed release(DR/EC) 60 mg PO HS RF: 0 Entresto 24-26 mg Tablet 1 tab PO BID RF: 0 lidocaine 5 % adhesive patch,medicated 1 patch topical DAILY Qty: 15 RF: 0 potassium chloride 10 mEq capsule, extended release 10 meq PO BID Qty: 60 RF: 5 magnesium oxide 400 mg magnesium capsule 400 mg PO BID Qty: 60 RF: 5 aspirin [Ecotrin Low Strength] 81 mg tablet,delayed release (DR/EC) 162 mg PO QAM RF: 0 metoprolol succinate [Toprol XL] 25 mg tablet extended release 24 hr 25 mg PO QAM RF: 0 acetaminophen [Tylenol Extra Strength] 500 mg tablet 1,000 mg PO Q8 PRN (Reason: Pain) RF: 0 duloxetine 30 mg capsule,delayed release(DR/EC) 30 mg PO HS RF: 0 Discontinued ropinirole 0.5 mg Tablet 0.5 mg PO HS RF: 0 furosemide 40 mg Tablet 40 mg PO QAM Qty: 30 RF: 5 isosorbide mononitrate 60 mg Tablet Extended Release 24 Hr 60 mg PO QAM Qty: 30 RF: 5 Discharge Orders: Discharge Order (Routine); Ordered 10/13/20 Ordered By: Radha Shah Admission Data Admit Date/Time: 10/05/20 10:36 Attending Provider: Radha Shah Admit Provider: Tiffany Cesar Primary Care Provider: Salas Gibbons Other Providers: Tiffany Cesar ; Chadd [place] ; Larisa Omalley ; Cresencio [place] ; Johnson Lira ; Abraham Echevarria ; Lisa Pereyra ; Pierre Gandhi ; Lucero Melendez ; Mona Christina ; Lizbeth Bustos ; Jamel Hamilton I. ; Aline Nathan ; Trina Robison ; Eliane Bowers ; Devon Harrison ; Lissette Daniel ; Jenae Bean ; Harjit Arias ; Aleyda Menendez ; Debbie Carmona ; Lionel Sprague ; Brenda Pascal ; Talon Martel ; Devon Swanson ; Frank Montoya ; Chandu Bone ; Ree Lopes ; Sabiha Morgan ; Ronal Can ; Jennifer Sanchez ; Stevo Kumar ; Vlad Palencia ; Abdi Ratliff. ; [facility] Other Interventions: Discharge Summary Assessment (RN) Last Done: 10/13/20 16:59
[2020-10-15 00:16] LABS: Lyme IgG Band Pattern CSF DNR; Lyme IgG CSF NO BANDS DETECTED; Lyme IgM Band Pattern CSF DNR; Lyme IgM CSF NO BANDS DETECTED
== END 2020-10-13 17:05 | DRG 885 ==
LOC: ED 00:08 → 2N 10:36 → SUATTDRO 10:36 → 2N 12:05 → 2S 10-06 16:28 → 1E 10-07 11:29 → 2S 10-08 10:05 → 2N 10-11 08:20

== ENCOUNTER 2021-01-13 05:38 | Inpatient (IN) ==
[2021-01-13] MEDS ORDERED: ALBUT/IPRATROP 3MG/0.5MG NEB 3 ML VIAL NEB STA (05:57)
[2021-01-13 06:24] LABS: Basophils # (auto) 0.02 K/uL (0-0.2); Basophils % (auto) 0.2 %; Eosinophils # (auto) 0.07 K/uL (0-0.5); Eosinophils % (auto) 0.8 %; Hematocrit (blood only) 37.1 % (42-52); Hemoglobin 12.9 g/dL (14.0-18.0); Immature Granulocytes # (auto) 0.03 K/uL (0.00-0.02); Immature Granulocytes % (auto) 0.3 %; Lymphocytes # (auto) 1.78 K/uL (1.2-3.4); Lymphocytes % (auto) 19.5 %; Mean Corpuscular Hemoglobin 31.3 pg (25-34); Mean Corpuscular Hgb Conc 34.8 g/dL (32-36); Mean Platelet Volume 9.8 fL (7.4-10.4); Monocytes # (auto) 0.78 K/uL (0.11-0.59); Monocytes % (auto) 8.6 %; Neutrophils # (auto) 6.43 K/uL (1.4-6.5); Neutrophils % (auto) 70.6 %; Platelet Count 220 K/uL (130-400); RDW Coefficient of Variation 15.6 % (11.5-14.5); RDW Standard Deviation 51.6 fL (36.4-46.3); Red Blood Count 4.12 M/uL (4.7-6.1); White Blood Count 9.11 K/uL (4.8-10.8)
[2021-01-13 06:33] LABS: Partial Thromboplastin Ratio 1.1; Partial Thromboplastin Time 27.8 Seconds (21.0-31.0); Prothrombin Time 10.6 Seconds (9.0-12.0)
[2021-01-13 06:41] LABS: Alanine Aminotransferase 20 U/L (12-78); Albumin Level 3.7 gm/dl (3.4-5.0); Aspartate Aminotransferase 18 U/L (15-37); BUN Creatinine Ratio 18.4 (10-20); Blood Urea Nitrogen 14 mg/dl (7-18); Calcium 8.6 mg/dl (8.5-10.1); Carbon Dioxide 26 mmol/L (21-32); Chloride 95 mmol/L (98-107); Est GFR (African American) 101.1 ml/min; Est GFR (Non-African American) 87.2 ml/min; Glucose 107 mg/dl (70-99); Magnesium 1.5 mg/dl (1.8-2.4); Potassium 3.8 mmol/L (3.5-5.1); Sodium 128 mmol/L (136-145)
[2021-01-13 06:48] LABS: Alkaline Phosphatase 54 U/L (45-117); Bilirubin,Total 0.7 mg/dl (0.2-1); Globulin 3.7 gm/dl (2.5-4.0); NT Pro B Type Natriuretic Pept 8860 pg/ml (0-1800); Total Protein 7.4 gm/dl (6.4-8.2); Troponin I 0.239 ng/ml (0-0.045)
[2021-01-13] MEDS ORDERED: FUROSEMIDE 40 MG/4 ML VIAL IV STA (06:52)
[2021-01-13] MEDS ORDERED: ASPIRIN 81 MG CHEW PO STA (06:53)
[2021-01-13] MEDS ORDERED: POTASSIUM CHLORIDE PWD 20 MEQ PACK PO ONE (07:08)
--- NOTE | 2021-01-13 07:08 | XRay Report ---
XR chest 1V portable CLINICAL HISTORY: Shortness of breath COMPARISON STUDY: 10/10/2020 FINDINGS: The heart is enlarged. There is diffuse elevation of interstitium consistent with pulmonary edema. Small subpulmonic pleural effusions are suspected. There is no lobar consolidation.[ IMPRESSION: 1. Cardiomegaly, mild pulmonary edema, and suspected small pleural effusions. ACT 112: Negative or not required by law. Electronically signed by: Frank Montoya M.D. 01/13/2021 7:06 AM
--- NOTE | 2021-01-13 07:24 | Emergency Department Note ---
History of Present Illness General Chief complaint: Respiratory Problems Stated complaint: HARD TO BREATHE Time Seen by Provider: 01/13/21 06:18 History of Present Illness 80-year-old male presents to the ED with a chief complaint of some dyspnea on exertion as well as shortness of breath. His symptoms started yesterday. He also states that his orthopnea is worse. He also reported some mild upper chest pain yesterday morning. It lasted for about a minute and resolved after nitro. The patient received a nebulizer treatment here in the ED and states that his symptoms did seem to improve with that. He does report a history of COPD as well as congestive heart failure. Has an ejection fraction of 35 to 40%. The patient states that he has going on a trip to [place] in the near future to live with his son. He denies any additional complaints at this time. No fevers or cough. He is a smoker. Home Medications Medication Instructions Recorded Confirmed Type atorvastatin 80 mg tablet (Lipitor) 80 mg PO HS 05/01/19 10/05/20 History finasteride 5 mg tablet (Proscar) 5 mg PO QAM 05/01/19 10/05/20 History fluticasone propionate 50 2 spray INTRANASAL DAILY 05/01/19 10/05/20 History mcg/actuation nasal spray,suspension (Flonase Allergy Relief) loratadine 10 mg tablet (Claritin) 10 mg PO DAILY PRN 05/01/19 10/05/20 History multivitamin 1 tab PO QAM 05/01/19 10/05/20 History nitroglycerin 0.4 mg sublingual 0.4 mg SUBLINGUAL UD PRN 05/01/19 10/05/20 History tablet (Nitrostat) omeprazole 20 mg tablet,delayed 20 mg PO BID 05/01/19 10/05/20 History release tamsulosin 0.4 mg capsule (Flomax) 0.4 mg PO HS 05/01/19 10/05/20 History trazodone 100 mg tablet 50 mg PO HS 05/01/19 10/05/20 History hydrocortisone 2.5 % topical cream 1 applic IN QPM PRN 05/27/19 10/05/20 History with perineal applicator (Proctosol HC) oxycodone-acetaminophen 5 mg-325 1 tab PO Q6H PRN 06/02/19 10/05/20 History mg tablet (Percocet) acetaminophen 500 mg tablet 1,000 mg PO Q8 PRN 09/12/19 10/05/20 History (Tylenol Extra Strength) aspirin 81 mg tablet,delayed 162 mg PO QAM 09/12/19 10/05/20 History release (Ecotrin Low Strength) metoprolol succinate 25 mg 25 mg PO QAM 09/12/19 10/05/20 History tablet,extended release 24 hr (Toprol XL) duloxetine 60 mg capsule,delayed 60 mg PO HS 06/19/20 10/05/20 History release ipratropium 0.5 mg-albuterol 3 mg 3 ml INHALATION TID 06/19/20 10/05/20 History (2.5 mg base)/3 mL nebulization soln sacubitril 24 mg-valsartan 26 mg 1 tab PO BID 06/19/20 10/05/20 History tablet (Entresto) lidocaine 5 % topical patch 1 patch TOPICAL DAILY #15 ea 06/21/20 10/05/20 Rx magnesium oxide 400 mg PO BID #60 cap 06/21/20 10/05/20 Rx potassium chloride 10 mEq 10 meq PO BID #60 cap 06/21/20 10/05/20 Rx capsule,extended release duloxetine 30 mg capsule,delayed 30 mg PO HS 10/05/20 10/05/20 History release divalproex 250 mg tablet,extended 750 mg PO BID #180 tab 10/13/20 Rx release 24 hr furosemide 20 mg tablet 20 mg PO QAM #30 tab 10/13/20 Rx isosorbide mononitrate 30 mg 30 mg PO QAM #30 tab 10/13/20 Rx tablet,extended release 24 hr metoprolol succinate 25 mg 12.5 mg PO QPM #30 tab 10/13/20 Rx tablet,extended release 24 hr Allergies Allergy/AdvReac Type Severity Reaction Status Date / Time cefaclor Allergy Intermediate swelling Verified 10/05/20 01:44 aspirin Allergy Mild bleeding Verified 10/05/20 01:44 ulcer (tolerates 81mg) Past Med/Surg History Medical History Acute hypoxemic respiratory failure Anxiety Chest pain CHF (congestive heart failure) Depression Elevated troponin GERD (gastroesophageal reflux disease) controlled Heart attack History of GI bleed + gastric ulcer [place] (hard of hearing) Hyperlipidemia Hypomagnesemia Hypoxia Insomnia Irregular heartbeat Non-ST elevation [place] (NSTEMI) Obesity Osteoarthritis Paranoid delusion Poor historian Restless leg Sciatica Seasonal allergies Spinal stenosis Stomach ulcer Valvular heart disease mild aortic stenosis per 09/2018 cardiac cath Surgical History History of cardiac cath 09/2018 - [facility] - CP - NO STENTS 2010 - [facility] - NO STENTS 2007 - BALLOON ANGIOPLASTY LAD PER MEDICAL RECORD 2000 - [facility] - NO STENTS History of cataract surgery History of cholecystectomy History of colonoscopy History of esophagogastroduodenoscopy (EGD) History of right knee surgery x 2 History of tonsillectomy and adenoidectomy Status post total right knee replacement Family History Mother Heart disease Leukemia Father Lung cancer Brother Cancer Other Allergies Hypertension Denies family history of No family history of adverse response to anesthesia Stroke Social History Smoking Status: Current every day smoker Cigarettes Per Day: 20; Second Hand Exposure: Yes; Hx Alcohol Use: No Hx Substance Use: No Preferred Language: Arabic Communication Ability: Unable Machine 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: No Beliefs That Will Affect Care: None (raised [place] ) marital status: / Current Living Situation: Alone Current Living Situation Comment: Lives in apartment Feels Safe at Home: Yes Assistive Devices: Cane Review of Systems A total of 10 systems reviewed and were otherwise negative Physical Exam Vital Signs Vital Signs - 24 hr 01/13/21 05:42 01/13/21 06:05 01/13/21 06:08 Temperature 36.3 C L Temperature Source Temporal Artery Scan Pulse Rate 96 H 89 Pulse Rate [Right Finger] 90 Pulse Rate from SpO2 Sensor 88 Respiratory Rate 28 H 19 14 Respiratory Effort / Characteristics Non-Labored Spontaneous Blood Pressure 164/90 H 150/90 H Blood Pressure Mean 114 110 Pulse Oximetry 92 99 92 Oxygen Delivery Method Room Air Room Air Room Air Sepsis Recent Fever Within 48 Hours No Sepsis New/Unexplained Change in Mental Status No Sepsis Action Taken by Nursing No Action Required 01/13/21 06:11 01/13/21 06:14 01/13/21 06:30 Temperature Temperature Source Pulse Rate 87 Pulse Rate [Right Finger] Pulse Rate from SpO2 Sensor 86 Respiratory Rate 19 Respiratory Effort / Characteristics Spontaneous Spontaneous Blood Pressure 158/87 H Blood Pressure Mean 110 Pulse Oximetry 94 Oxygen Delivery Method Room Air Sepsis Recent Fever Within 48 Hours Sepsis New/Unexplained Change in Mental Status Sepsis Action Taken by Nursing 01/13/21 07:00 Temperature Temperature Source Pulse Rate 86 Pulse Rate [Right Finger] Pulse Rate from SpO2 Sensor 86 Respiratory Rate 22 Respiratory Effort / Characteristics Blood Pressure 152/73 H Blood Pressure Mean 99 Pulse Oximetry 91 Oxygen Delivery Method Sepsis Recent Fever Within 48 Hours Sepsis New/Unexplained Change in Mental Status Sepsis Action Taken by Nursing CONSTITUTIONAL/VITAL SIGNS: Reviewed / noted above. GENERAL: Non-toxic in appearance. INTEGUMENTARY: Warm, dry, and [place]. HEAD: Normocephalic. EYES: without scleral icterus or trauma. ENT/OROPHARYNX: clear and moist. LYMPHADENOPATHY/NECK: Is supple without lymphadenopathy or meningismus. RESPIRATORY: Crackles in the bases and decreased breath sounds. CARDIOVASCULAR: Regular rate and rhythm. GI/ABDOMEN: Soft and nontender. No organomegaly or pulsatile mass. EXTREMITIES: Warm and well perfused. Some mild pedal edema. BACK: No CVA tenderness. NEUROLOGICAL: Intact without focal deficits. PSYCHIATRIC: normal affect. MUSCULOSKELETAL: Normally developed with good muscle tone. TRIAGE NURSING DOCUMENTATION REVIEWED. Course Administered Medications Discontinued Medications Albuterol (Albut/Ipratrop 3mg/0.5mg Neb 3 Ml Vial) 3 ml NEB NOW STA Stop: 01/13/21 05:58 Last Admin: 01/13/21 06:08 Dose: 3 ml Documented by: [id number] Aspirin (Aspirin 81 Mg Chew) 324 mg PO NOW STA Stop: 01/13/21 06:54 Last Admin: 01/13/21 06:59 Dose: 324 mg Documented by: [id number] Furosemide (Furosemide 40 Mg/4 Ml Vial) 40 mg IV NOW STA Stop: 01/13/21 06:53 Last Admin: 01/13/21 06:59 Dose: 40 mg Documented by: [id number] Potassium Chloride (Potassium Chloride Pwd 20 Meq Pack) 40 meq PO ONE ONE Stop: 01/13/21 07:09 Last Admin: 01/13/21 07:23 Dose: 40 meq Documented by: [id number] Medical Decision Making Differential Diagnosis Incision shortness of breath Medical Records Attestation: I reviewed the patient's medical records. Home Medications Current Medication List: was personally reviewed by me Laboratory Data Attestation: I reviewed the patient's lab results. Result diagrams: 01/13/21 06:06 01/13/21 06:06 Lab Results 01/13/21 01/13/21 01/13/21 Range/Units 06:06 06:06 06:06 WBC 9.11 (4.8-10.8) K/uL RBC 4.12 L (4.7-6.1) M/uL Hgb 12.9 L (14.0-18.0) g/dL Hct 37.1 L (42-52) % MCV 90.0 (80-100) fL MCH 31.3 (25-34) pg MCHC 34.8 (32-36) g/dL RDW Std Deviation 51.6 H (36.4-46.3) fL RDW Coeff of Deborah 15.6 H (11.5-14.5) % Plt Count 220 (130-400) K/uL MPV 9.8 (7.4-10.4) fL Immature Gran % (Auto) 0.3 % Neut % (Auto) 70.6 % Lymph % (Auto) 19.5 % [place] % (Auto) 8.6 % Eos % (Auto) 0.8 % Baso % (Auto) 0.2 % Neut # (Auto) 6.43 (1.4-6.5) K/uL Lymph # (Auto) 1.78 (1.2-3.4) K/uL [place] # (Auto) 0.78 H (0.11-0.59) K/uL Eos # (Auto) 0.07 (0-0.5) K/uL Baso # (Auto) 0.02 (0-0.2) K/uL Immature Gran # (Auto) 0.03 H (0.00-0.02) K/uL PT 10.6 (9.0-12.0) Seconds INR 1.0 (0.9-1.1) APTT 27.8 (21.0-31.0) Seconds PTT Ratio 1.1 Sodium 128 L (136-145) mmol/L Potassium 3.8 (3.5-5.1) mmol/L Chloride 95 L (98-107) mmol/L Carbon Dioxide 26 (21-32) mmol/L Anion Gap 7.0 (3-11) BUN 14 (7-18) mg/dl Creatinine 0.75 (0.6-1.4) mg/dl Est Cr Clr Drug Dosing Not Reportable Est GFR ( Amer) 101.1 ml/min Est GFR (Non-Af Amer) 87.2 ml/min BUN/Creatinine Ratio 18.4 (10-20) Glucose 107 H (70-99) mg/dl Calcium 8.6 (8.5-10.1) mg/dl Magnesium 1.5 L (1.8-2.4) mg/dl Total Bilirubin 0.7 (0.2-1) mg/dl AST 18 (15-37) U/L ALT 20 (12-78) U/L Alkaline Phosphatase 54 (45-117) U/L Troponin I 0.239 H* (0-0.045) ng/ml NT-Pro-B Natriuret Pep 8860 H (0-1800) pg/ml Total Protein 7.4 (6.4-8.2) gm/dl Albumin 3.7 (3.4-5.0) gm/dl Globulin 3.7 (2.5-4.0) gm/dl Albumin/Globulin Ratio 1.0 (0.9-2) COVID-19 Eval Order 01/13/21 Range/Units 07:07 WBC (4.8-10.8) K/uL RBC (4.7-6.1) M/uL Hgb (14.0-18.0) g/dL Hct (42-52) % MCV (80-100) fL MCH (25-34) pg MCHC (32-36) g/dL RDW Std Deviation (36.4-46.3) fL RDW Coeff of Deborah (11.5-14.5) % Plt Count (130-400) K/uL MPV (7.4-10.4) fL Immature Gran % (Auto) % Neut % (Auto) % Lymph % (Auto) % [place] % (Auto) % Eos % (Auto) % Baso % (Auto) % Neut # (Auto) (1.4-6.5) K/uL Lymph # (Auto) (1.2-3.4) K/uL [place] # (Auto) (0.11-0.59) K/uL Eos # (Auto) (0-0.5) K/uL Baso # (Auto) (0-0.2) K/uL Immature Gran # (Auto) (0.00-0.02) K/uL PT (9.0-12.0) Seconds INR (0.9-1.1) APTT (21.0-31.0) Seconds PTT Ratio Sodium (136-145) mmol/L Potassium (3.5-5.1) mmol/L Chloride (98-107) mmol/L Carbon Dioxide (21-32) mmol/L Anion Gap (3-11) BUN (7-18) mg/dl Creatinine (0.6-1.4) mg/dl Est Cr Clr Drug Dosing Est GFR ( Amer) ml/min Est GFR (Non-Af Amer) ml/min BUN/Creatinine Ratio (10-20) Glucose (70-99) mg/dl Calcium (8.5-10.1) mg/dl Magnesium (1.8-2.4) mg/dl Total Bilirubin (0.2-1) mg/dl AST (15-37) U/L ALT (12-78) U/L Alkaline Phosphatase (45-117) U/L Troponin I (0-0.045) ng/ml NT-Pro-B Natriuret Pep (0-1800) pg/ml Total Protein (6.4-8.2) gm/dl Albumin (3.4-5.0) gm/dl Globulin (2.5-4.0) gm/dl Albumin/Globulin Ratio (0.9-2) COVID-19 Eval Order Covid19 at [facility] Imaging Data Radiologist's Impression: Chest X-Ray 01/13/21 05:52 XR chest 1V portable CLINICAL HISTORY: Shortness of breath COMPARISON STUDY: 10/10/2020 FINDINGS: The heart is enlarged. There is diffuse elevation of interstitium consistent with pulmonary edema. Small subpulmonic pleural effusions are suspected. There is no lobar consolidation.[ IMPRESSION: 1. Cardiomegaly, mild pulmonary edema, and suspected small pleural effusions. ACT 112: Negative or not required by law. Electronically signed by: Frank Montoya M.D. 01/13/2021 7:06 AM ECG Data Attestation: I personally reviewed and interpreted this ECG as follows: Additional Comments: Twelve-lead EKG: Per my interpretation there is a normal sinus rhythm at a rate of 95 with a left bundle branch block which is chronic. MDM Narrative Patient presents to the ED's with some increased shortness of breath and some chest pain yesterday as detailed above. His vital signs are stable. His saturations are 92% on room air. The patient's BNP and troponin are elevated. His troponin appears to be chronically elevated at least on previous recent visits. His CBC is unremarkable. His sodium is low and his magnesium is low. Chest x-ray suggest some congestive heart failure changes. The patient was given IV Lasix and aspirin p.o. here. He did not take his aspirin yet this morn ing. He will be seen by the hospitalist for further evaluation and care. Impression & Plan Congestive heart failure, Demand ischemia, Asthma exacerbation in COPD, Acute hyponatremia, Hypomagnesemia Discharge Plan Visit Data Chief Complaint: Respiratory Problems Stated Complaint: HARD TO BREATHE ED Provider: Satinder Rios ED Midlevel Provider: Trino Begum Discharge Problem: Congestive heart failure, Demand ischemia, Asthma exacerbation in COPD, Acute hyponatremia, Hypomagnesemia Patient Disposition: Being Evaluated by Hospitalist Forms Stand Alone Forms: [facility] Prescriptions Prescriptions: No Action multivitamin Tablet 1 tab PO QAM RF: 0 atorvastatin [Lipitor] 80 mg Tablet 80 mg PO HS RF: 0 tamsulosin [Flomax] 0.4 mg Capsule 0.4 mg PO HS RF: 0 trazodone 100 mg Tablet 50 mg PO HS RF: 0 nitroglycerin [Nitrostat] 0.4 mg Tablet, Sublingual 0.4 mg sublingual UD PRN (Reason: Chest Pain) RF: 0 fluticasone propionate [Flonase Allergy Relief] 50 mcg/actuation [place],Suspension 2 spray INTRANASAL DAILY RF: 0 finasteride [Proscar] 5 mg Tablet 5 mg PO QAM RF: 0 loratadine [Claritin] 10 mg Tablet 10 mg PO DAILY PRN (Reason: Allergy Symptoms) RF: 0 omeprazole 20 mg Tablet,Delayed Release (Dr/Ec) 20 mg PO BID RF: 0 hydrocortisone [Proctosol HC] 2.5 % cream with perineal applicator 1 applic IN QPM PRN (Reason: Hemorrhoids) RF: 0 oxycodone-acetaminophen [Percocet] 5-325 mg tablet 1 tab PO Q6H PRN (Reason: Pain) RF: 0 ipratropium-albuterol 0.5 mg-3 mg(2.5 mg base)/3 mL solution for nebulization 3 ml INHALATION TID RF: 0 duloxetine 60 mg capsule,delayed release(DR/EC) 60 mg PO HS RF: 0 Entresto 24-26 mg Tablet 1 tab PO BID RF: 0 lidocaine 5 % adhesive patch,medicated 1 patch topical DAILY Qty: 15 RF: 0 potassium chloride 10 mEq capsule, extended release 10 meq PO BID Qty: 60 RF: 5 magnesium oxide 400 mg magnesium capsule 400 mg PO BID Qty: 60 RF: 5 aspirin [Ecotrin Low Strength] 81 mg tablet,delayed release (DR/EC) 162 mg PO QAM RF: 0 metoprolol succinate [Toprol XL] 25 mg tablet extended release 24 hr 25 mg PO QAM RF: 0 acetaminophen [Tylenol Extra Strength] 500 mg tablet 1,000 mg PO Q8 PRN (Reason: Pain) RF: 0 duloxetine 30 mg capsule,delayed release(DR/EC) 30 mg PO HS RF: 0 isosorbide mononitrate 30 mg Tablet Extended Release 24 Hr 30 mg PO QAM Qty: 30 RF: 0 metoprolol succinate 25 mg Tablet Extended Release 24 Hr 12.5 mg PO QPM Qty: 30 RF: 0 divalproex 250 mg Tablet Extended Release 24 Hr 750 mg PO BID Qty: 180 RF: 0 furosemide 20 mg Tablet 20 mg PO QAM Qty: 30 RF: 0 Referrals Referrals: Salas Gibbons, [Primary Care Provider] -
[2021-01-13] MEDS: guaiFENesin 600 MG TABCR PO SCH ×2 (08:32→21:24)
--- NOTE | 2021-01-13 08:51 | History & Physical Report ---
Date of Service January 13, 2021 Assessment & Plan (1) SOB (shortness of breath): Plan: This is a 80 yo M with a PMH of chronic systolic heart failure, CAD (s/p PCI in 2007), hypertension, moderate aortic valve stenosis, COPD, tobacco use, CKD 3, diabetes and other medical problems listed below who presents with shortness of breath starting early yesterday morning. Likely multifactorial in setting of acute decompensated CHF and COPD exacerbation (2) Acute decompensated heart failure: Plan: EKG without acute ischemic change CXR with cardiomegaly, mild pulmonary edema, and suspected small pleural effusions BNP 8,860, troponin 0.239 (h/o chronic elevation) Given 40mg IV Lasix in ED Plan to continue IV Lasix 40mg BID, strict I&Os, low sodium diet Monitor on tele, trend troponin Most recent 2D echo from May 2020 with EF 40-45%, mild concentric LVH, mild global hypokinesis of left ventricle, moderate aortic valve stenosis and mild aortic regurgitation Routine cardiology consult (3) COPD exacerbation: Plan: Currently smoking 1 ppd, declined nicotine patch Much improved after breathing treatment in ED Continue Duonebs Q4H PRN, Doxycycline 100mg BID, prednisone 40mg daily Supplemental O2 as needed (4) Acute hyponatremia: Plan: Sodium 128 in setting of hypervolemia Serum and urine osm pending Expect improvement with diuresis Repeat BMP in AM (5) Elevated troponin: Plan: History of chronic troponin elevation in setting of demand ischemia, no chest pain Continue to trend (6) Hypertension: Plan: Continue Toprol (7) Hypomagnesemia: Plan: Replace Mag, continue oral supplement (8) Mood disorder: Plan: Stable. Continue duloxetine, divalproex (9) Sciatica: Plan: Chronic home oxycodone - continue PT/OT evaluation DVT Ppx: SQ heparin Code status: FULL PCP: Sarah Gibbons Dispo: Admit to PCU Patient seen in collaboration with Dr. Willingham. Please see addendum. History of Present Illness Chief Complaint: SOB Primary Care Provider: Salas Gibbons DO This is a 80 yo M with a PMH of chronic systolic heart failure, CAD (s/p PCI in 2007), hypertension, moderate aortic valve stenosis, COPD, tobacco use, CKD 3, mood disorder and other medical problems listed below who presents with shortness of breath starting early yesterday morning. Shortness of breath is associated with pleuritic chest pain, orthopnea and recent weight gain. Patient states he is not moving around much. Did take nitro yesterday without much improvement to pleuritic chest pain. Did receive a nebulizer treatment in the ER with improved symptoms. Denies any fever, chills, congestion or wheezing. No recent known sick contacts. Received second dose of Covid vaccine last week. Granddaughter manages medications for him - went over med [employer] on the phone with her. Follows with Dr. Pennington in cardiology clinic. Most recent 2D echo from May 2020 with EF 40-45%, mild concentric LVH, mild global hypokinesis of left ventricle, moderate aortic valve stenosis and mild aortic regurgitation. Most recent cardiac catheterization performed at [facility] in 2019 without significant change from previous, no intervention. Patient is hard of hearing. No lightheadedness, headache, nausea, vomiting, abd pain, dysuria or constipation. Chronic diarrhea - takes PRN loperamide and supplements magnesium. Allergies Allergy/AdvReac Type Severity Reaction Status Date / Time cefaclor Allergy Intermediate swelling Verified 01/13/21 08:36 aspirin Allergy Mild bleeding Verified 01/13/21 08:36 ulcer (tolerates 81mg) Home Medications Medication Instructions Recorded Confirmed Type atorvastatin 80 mg tablet (Lipitor) 80 mg PO HS 05/01/19 01/13/21 History finasteride 5 mg tablet (Proscar) 5 mg PO QAM 05/01/19 01/13/21 History fluticasone propionate 50 2 spray INTRANASAL DAILY 05/01/19 01/13/21 History mcg/actuation nasal spray,suspension (Flonase Allergy Relief) nitroglycerin 0.4 mg sublingual 0.4 mg SUBLINGUAL UD PRN 05/01/19 01/13/21 History tablet (Nitrostat) omeprazole 20 mg tablet,delayed 20 mg PO BID 05/01/19 01/13/21 History release tamsulosin 0.4 mg capsule (Flomax) 0.4 mg PO HS 05/01/19 01/13/21 History trazodone 100 mg tablet 50 mg PO HS 05/01/19 01/13/21 History oxycodone-acetaminophen 5 mg-325 1 tab PO Q6H PRN 06/02/19 01/13/21 History mg tablet (Percocet) acetaminophen 500 mg tablet 1,000 mg PO Q8 PRN 09/12/19 01/13/21 History (Tylenol Extra Strength) aspirin 81 mg tablet,delayed 81 mg PO BID 09/12/19 01/13/21 History release (Ecotrin Low Strength) metoprolol succinate 25 mg 25 mg PO QAM 09/12/19 01/13/21 History tablet,extended release 24 hr (Toprol XL) duloxetine 60 mg capsule,delayed 60 mg PO HS 06/19/20 01/13/21 History release lidocaine 5 % topical patch 1 patch TOPICAL DAILY #15 ea 06/21/20 01/13/21 Rx magnesium oxide 400 mg PO BID #60 cap 06/21/20 01/13/21 Rx potassium chloride 10 mEq 10 meq PO BID #60 cap 06/21/20 01/13/21 Rx capsule,extended release duloxetine 30 mg capsule,delayed 30 mg PO HS 10/05/20 01/13/21 History release divalproex 250 mg tablet,extended 750 mg PO BID #180 tab 10/13/20 01/13/21 Rx release 24 hr furosemide 20 mg tablet 20 mg PO QAM #30 tab 10/13/20 01/13/21 Rx isosorbide mononitrate 30 mg 30 mg PO QAM #30 tab 10/13/20 01/13/21 Rx tablet,extended release 24 hr metoprolol succinate 25 mg 12.5 mg PO QPM #30 tab 10/13/20 01/13/21 Rx tablet,extended release 24 hr cholecalciferol (vitamin D3) 50 50 mcg PO DAILY 01/13/21 01/13/21 History mcg (2,000 unit) tablet (Vitamin D3) loperamide 2 mg tablet 2 mg PO QID PRN 01/13/21 01/13/21 History loratadine 10 mg tablet 10 mg PO DAILY PRN 01/13/21 01/13/21 History sacubitril 24 mg-valsartan 26 mg 1 tab PO BID 01/13/21 01/13/21 History tablet (Entresto) Past Med/Surg History Medical History (Updated 01/13/21 @ 10:57 by Eleanor Garcia PA-C) Anxiety CHF (congestive heart failure) Depression Elevated troponin GERD (gastroesophageal reflux disease) controlled History of GI bleed + gastric ulcer [place] (hard of hearing) Hyperlipidemia Hypomagnesemia Hypoxia Insomnia Irregular heartbeat Mood disorder Non-ST elevation [place] (NSTEMI) Obesity Osteoarthritis Paranoid delusion Poor historian Restless leg Sciatica Seasonal allergies Spinal stenosis Stomach ulcer Valvular heart disease mild aortic stenosis per 09/2018 cardiac cath Surgical History History of cardiac cath 09/2018 - [facility] - CP - NO STENTS 2010 - [facility] - NO STENTS 2007 - BALLOON ANGIOPLASTY LAD PER MEDICAL RECORD 2000 - [facility] - NO STENTS History of cataract surgery History of cholecystectomy History of colonoscopy History of esophagogastroduodenoscopy (EGD) History of right knee surgery x 2 History of tonsillectomy and adenoidectomy Status post total right knee replacement Family History Mother Heart disease Leukemia Father Lung cancer Brother Cancer Other Allergies Hypertension Denies family history of No family history of adverse response to anesthesia Stroke Social History Smoking Status: Current every day smoker Cigarettes Per Day: 20; Second Hand Exposure: Yes; Do You Dip or Chew Tobacco: No; Tobacco Cessation Education Requested by Patient: No Hx Alcohol Use: No Hx Substance Use: No Preferred Language: Sami Communication Ability: Effective Gse Mechanic Required: No Beliefs That Will Affect Care: None marital status: / Current Living Situation: Alone Current Living Situation Comment: Lives in apartment Feels Safe at Home: Yes Safety Concerns: Feels Safe At This Time Assistive Devices: Cane Review of Systems Review of Systems: At least ten systems reviewed and negative except as noted in the HPI. Physical Exam Physical Exam: General Appearance: WD/WN, vitals as above, NAD, sitting up in bed, conversational dyspnea Head: normocephalic, atraumatic Eyes: normal inspection, PERRL, conjunctivae normal, anicteric sclerae ENT: hard of hearing, external ear and nose normal, oropharynx normal Neck: normal visual inspection, trachea midline, no thyromegaly Respiratory: normal respiratory effort, diminished lung sounds at bases, no wheeze, rales or rhonchi. No accessory muscle use Cardiovascular: regular rate, rhythm, +systolic murmur, normal peripheral pulses, no BLE edema. Vessels: difficult to assess JVD with habitus Chest: normal inspection of chest Abdomen/GI: normal bowel sounds, soft, nontender, no hepatosplenomegaly Extremities/Musculoskeletal: no cyanosis or clubbing, extremities motor strength 5/5 Neurologic: PERRL, EOMI, accommodation nl, no face palsy, no dysarthria, CN's II-XI intact bilaterally and moves all extremities Psychiatric: A+Ox3, euthymic affect Skin: no rashes, normal color, warm/dry Results & Data Results & Data ([facility]) Vital Signs (Past 12 Hours) Vital Signs Temp Pulse Pulse Resp BP Pulse Ox 01/13/21 07:30 83 23 168/91 H 93 01/13/21 07:00 86 22 152/73 H 91 01/13/21 06:30 87 19 158/87 H 94 01/13/21 06:08 90 14 92 01/13/21 06:05 89 19 150/90 H 99 01/13/21 05:42 36.3 C L 96 H 28 H 164/90 H 92 Laboratory Results Short CBC 01/13/21 01/13/21 Range/Units 06:06 06:06 WBC 9.11 (4.8-10.8) K/uL Hgb 12.9 L (14.0-18.0) g/dL Hct 37.1 L (42-52) % Plt Count 220 (130-400) K/uL Troponin I 0.239 H* (0-0.045) ng/ml BMP 01/13/21 06:06 Sodium 128 L Potassium 3.8 Chloride 95 L Carbon Dioxide 26 BUN 14 Creatinine 0.75 Glucose 107 H Calcium 8.6 Cardiac Enzymes 01/13/21 Range/Units 06:06 Troponin I 0.239 H* (0-0.045) ng/ml Liver Function 01/13/21 Range/Units 06:06 Total Bilirubin 0.7 (0.2-1) mg/dl AST 18 (15-37) U/L ALT 20 (12-78) U/L Alkaline Phosphatase 54 (45-117) U/L Albumin 3.7 (3.4-5.0) gm/dl Diagnostic Findings Chest X-Ray 01/13/21 05:52 XR chest 1V portable CLINICAL HISTORY: Shortness of breath COMPARISON STUDY: 10/10/2020 FINDINGS: The heart is enlarged. There is diffuse elevation of interstitium consistent with pulmonary edema. Small subpulmonic pleural effusions are suspected. There is no lobar consolidation.[ IMPRESSION: 1. Cardiomegaly, mild pulmonary edema, and suspected small pleural effusions. ACT 112: Negative or not required by law. Electronically signed by: Frank Montoya M.D. 01/13/2021 7:06 AM ECG Additional Comments: NSR, LAD, LVH with widening QRS and repolarization abnor mality Code Status & VTE Plan VTE Prophylaxis Plan VTE Prophylaxis will be ordered: Yes Supervising Physician Co-Signing Physician Notes Attending addendum The patient was seen and examined in emergency room He has been very noncompliant and does not want to stay in the hospital for more than 2 days in total Has been coming in with increasing shortness of breath for the last 2 days and some chest discomfort Noted to have acute on chronic CHF and may have COPD exacerbation On examination Sitting on a chair with some shortness of breath at rest Hemodynamically stable with blood pressure on the upper side Chest -decreased breath sound bilaterally with wheezing and bibasilar crackles Heart-S1-S2, 2/6 to 3/6 ESM over aortic area Abdomensoft, nontender, bowel sound present Extremities-1+ edema bilaterally. Chronic skin changes ASSOCIATE TEAM PHYSICIAN-alert, awake and oriented x3 His admission labs, EKG and imaging studies reviewed Has acute on chronic CHF complicated by aortic stenosis and COPD Started on intravenous Lasix and will continue twice daily for diuresis Echo will be checked and cardiology consultation has been requested Agree with assessment and plan as outlined above by MOON Funk Dr
--- NOTE | 2021-01-13 08:56 | Electrocardiogram Report ---
Test Reason : Blood Pressure : / mmHG Vent. Rate : 095 BPM Atrial Rate : 095 BPM P-R Int : 184 ms QRS Dur : 130 ms QT Int : 388 ms P-R-T Axes : 000 -51 102 degrees QTc Int : 487 ms Normal sinus rhythm Left axis deviation Left ventricular hypertrophy with QRS widening and repolarization abnormality Abnormal ECG When compared with ECG of 07-OCT-2020 13:08, [place] interval has decreased Minimal criteria for Septal infarct are no longer Present Confirmed by Manjinder Yip ([id number]) on 01/13/2021 8:55:55 AM Referred By: Confirmed By:Manjinder Yip
[2021-01-13] MEDS ORDERED: MAGNESIUM SULFATE / D5W 1 GM/100 ML BAG IV ONE (09:30)
[2021-01-13] MEDS ORDERED: DIVALPROEX EXTENDED RELEASE 250 MG TABCR PO ONE (13:30)
[2021-01-13] MEDS ORDERED: METOPROLOL SUCC 25MG EXT REL TAB PO ONE (13:30)
[2021-01-13] MEDS ORDERED: oxyCODONE HCL IR 5 MG TAB (IMMEDIATE RELEASE) PO ONE (13:30)
[2021-01-13] MEDS ORDERED: SACUBITRIL-VALSARTAN 24-26 MG TAB PO ONE (13:30)
[2021-01-13] MEDS ORDERED: POLYETHYLENE (MIRALAX) 17 GM PACK PO PRN (14:52)
[2021-01-13] MEDS ORDERED: ACETAMINOPHEN 325 MG TAB PO PRN (14:52)
[2021-01-13] MEDS ORDERED: LORATADINE 10 MG TAB PO PRN (14:52)
[2021-01-13] MEDS ORDERED: LOPERAMIDE HCL 2 MG CAP PO PRN (15:00)
--- NOTE | 2021-01-13 16:32 | Cardiology Consultation ---
Date of Consultation January 13, 2021 Assessment & Plan (1) Acute decompensated heart failure: Acute on chronic systolic heart failure. Mild troponin I elevation likely due to his underlying cardiomyopathy, myocardial strain. Hyponatremia 128 mmol/L noted. Need to trend this terms of response to IV furosemide. Perhaps has a superimposed bronchitis so I think it is reasonable to have him on doxycycline, and perhaps we can transition this to an oral form tomorrow to avoid extra IV fluid input. Continue remaining cardiac medications including metoprolol aspirin atorvastatin Entresto. History of Present Illness Attending Physician: Cooper Willingham MD History of Present Illness Eugene Hyman is a 80 year old male seen in cardiology consultation per the request of Eleanor Garcia PA-C for the evaluation of acute on chronic systolic hear failure. The patient's primary ramp supervisor is Dr Pennington of our practice. Patient presents with subacute worsening of shortness of breath, and a pleuritic chest pain. Per his description, this is already improved. Cardiology Problem List: 1. Atherosclerotic coronary disease status post balloon angioplasty of the left anterior descending November of 2007 2. Diagnostic cardiac catheterization 2010 with moderate nonobstructive coronary disease 3. Diagnostic cardiac catheterization for intermittent chest discomfort October 02, 2018, 40% left anterior descending with chronic total occlusion thin small diagonal branch Repeat cardiac catheterization in the setting of congestive heart failure multifactorial etiology without significant change September 15, 2019 4.. Chronic obstructive lung disease 5. Chronic tobacco use in cessation 6. Hyperlipidemia on therapy 7. Calcific non rheumatic aortic valve disease with moderate aortic stenosis, mild aortic insufficiency 8. Chronic back pain 9. Most recent echocardiogram May,, mild global left ventricular hypokinesis, mild concentric LVH, LVEF mildly reduced to 40-45%. 10. Intermittent left bundle branch block noted September,. Allergies Allergy/AdvReac Type Severity Reaction Status Date / Time cefaclor Allergy Intermediate swelling Verified 01/13/21 08:36 aspirin Allergy Mild bleeding Verified 01/13/21 08:36 ulcer (tolerates 81mg) Home Medications Medication Instructions Recorded Confirmed Type atorvastatin 80 mg tablet (Lipitor) 80 mg PO HS 05/01/19 01/13/21 History finasteride 5 mg tablet (Proscar) 5 mg PO QAM 05/01/19 01/13/21 History fluticasone propionate 50 2 spray INTRANASAL DAILY 05/01/19 01/13/21 History mcg/actuation nasal spray,suspension (Flonase Allergy Relief) nitroglycerin 0.4 mg sublingual 0.4 mg SUBLINGUAL UD PRN 05/01/19 01/13/21 History tablet (Nitrostat) omeprazole 20 mg tablet,delayed 20 mg PO BID 05/01/19 01/13/21 History release tamsulosin 0.4 mg capsule (Flomax) 0.4 mg PO HS 05/01/19 01/13/21 History trazodone 100 mg tablet 50 mg PO HS 05/01/19 01/13/21 History oxycodone-acetaminophen 5 mg-325 1 tab PO Q6H PRN 06/02/19 01/13/21 History mg tablet (Percocet) acetaminophen 500 mg tablet 1,000 mg PO Q8 PRN 09/12/19 01/13/21 History (Tylenol Extra Strength) aspirin 81 mg tablet,delayed 81 mg PO BID 09/12/19 01/13/21 History release (Ecotrin Low Strength) metoprolol succinate 25 mg 25 mg PO QAM 09/12/19 01/13/21 History tablet,extended release 24 hr (Toprol XL) duloxetine 60 mg capsule,delayed 60 mg PO HS 06/19/20 01/13/21 History release lidocaine 5 % topical patch 1 patch TOPICAL DAILY #15 ea 06/21/20 01/13/21 Rx magnesium oxide 400 mg PO BID #60 cap 06/21/20 01/13/21 Rx potassium chloride 10 mEq 10 meq PO BID #60 cap 06/21/20 01/13/21 Rx capsule,extended release duloxetine 30 mg capsule,delayed 30 mg PO HS 10/05/20 01/13/21 History release divalproex 250 mg tablet,extended 750 mg PO BID #180 tab 10/13/20 01/13/21 Rx release 24 hr furosemide 20 mg tablet 20 mg PO QAM #30 tab 10/13/20 01/13/21 Rx isosorbide mononitrate 30 mg 30 mg PO QAM #30 tab 10/13/20 01/13/21 Rx tablet,extended release 24 hr metoprolol succinate 25 mg 12.5 mg PO QPM #30 tab 10/13/20 01/13/21 Rx tablet,extended release 24 hr cholecalciferol (vitamin D3) 50 50 mcg PO DAILY 01/13/21 01/13/21 History mcg (2,000 unit) tablet (Vitamin D3) loperamide 2 mg tablet 2 mg PO QID PRN 01/13/21 01/13/21 History loratadine 10 mg tablet 10 mg PO DAILY PRN 01/13/21 01/13/21 History sacubitril 24 mg-valsartan 26 mg 1 tab PO BID 01/13/21 01/13/21 History tablet (Entresto) Patient History Medical History Anxiety CHF (congestive heart failure) Depression Elevated troponin GERD (gastroesophageal reflux disease) controlled History of GI bleed + gastric ulcer [place] (hard of hearing) Hyperlipidemia Hypomagnesemia Hypoxia Insomnia Irregular heartbeat Mood disorder Non-ST elevation [place] (NSTEMI) Obesity Osteoarthritis Paranoid delusion Poor historian Restless leg Sciatica Seasonal allergies Spinal stenosis Stomach ulcer Valvular heart disease mild aortic stenosis per 09/2018 cardiac cath Surgical History History of cardiac cath 09/2018 - [facility] - CP - NO STENTS 2010 - [facility] - NO STENTS 2007 - BALLOON ANGIOPLASTY LAD PER MEDICAL RECORD 2000 - [facility] - NO STENTS History of cataract surgery History of cholecystectomy History of colonoscopy History of esophagogastroduodenoscopy (EGD) History of right knee surgery x 2 History of tonsillectomy and adenoidectomy Status post total right knee replacement Family History Mother Heart disease Leukemia Father Lung cancer Brother Cancer Other Allergies Hypertension Denies family history of No family history of adverse response to anesthesia Stroke Social History Smoking Status: Current every day smoker Cigarettes Per Day: 20; Second Hand Exposure: Yes; Do You Dip or Chew Tobacco: No; Tobacco Cessation Education Requested by Patient: No Hx Alcohol Use: No Hx Substance Use: No Preferred Language: Niuean Communication Ability: Effective Single Wire Saw Operator Required: No Beliefs That Will Affect Care: None marital status: / Current Living Situation: Alone Current Living Situation Comment: Lives in apartment Feels Safe at Home: Yes Safety Concerns: Feels Safe At This Time Assistive Devices: Cane Review of Systems Review of Systems: All systems reviewed & are unremarkable except as noted in HPI & below Physical Exam Physical Exam: Temp Pulse Resp BP Pulse Ox 36.7 C 86 14 156/76 H 92 01/13/21 15:48 01/13/21 17:31 01/13/21 17:31 01/13/21 15:48 01/13/21 17:31 Constitutional: Chronically ill in appearance, no acute distress Respiratory: Unable to listen to lungs as patient was actively eating his evening meal. Results & Data ([facility]) Vital Signs (Past 12 Hours) Vital Signs Temp Pulse Pulse Resp BP BP Pulse Ox 01/13/21 15:48 36.7 C 83 20 156/76 H 93 01/13/21 14:16 88 17 151/70 H 95 01/13/21 10:30 90 18 141/80 H 95 01/13/21 09:15 88 23 168/84 H 93 01/13/21 07:30 83 23 168/91 H 93 01/13/21 07:00 86 22 152/73 H 91 01/13/21 06:30 87 19 158/87 H 94 01/13/21 06:08 90 14 92 01/13/21 06:05 89 19 150/90 H 99 01/13/21 05:42 36.3 C L 96 H 28 H 164/90 H 92 Laboratory Results Cardiac Enzymes 01/13/21 01/13/21 Range/Units 06:06 15:03 AST 18 (15-37) U/L Troponin I 0.239 H* 0.249 H* (0-0.045) ng/ml Coagulation 01/13/21 Range/Units 06:06 PT 10.6 (9.0-12.0) Seconds APTT 27.8 (21.0-31.0) Seconds CBC 01/13/21 Range/Units 06:06 WBC 9.11 (4.8-10.8) K/uL RBC 4.12 L (4.7-6.1) M/uL Hgb 12.9 L (14.0-18.0) g/dL Hct 37.1 L (42-52) % Plt Count 220 (130-400) K/uL Neut # (Auto) 6.43 (1.4-6.5) K/uL Lymph # (Auto) 1.78 (1.2-3.4) K/uL [place] # (Auto) 0.78 H (0.11-0.59) K/uL Eos # (Auto) 0.07 (0-0.5) K/uL Baso # (Auto) 0.02 (0-0.2) K/uL Comprehensive Metabolic Panel 01/13/21 Range/Units 06:06 Sodium 128 L (136-145) mmol/L Potassium 3.8 (3.5-5.1) mmol/L Chloride 95 L (98-107) mmol/L Carbon Dioxide 26 (21-32) mmol/L BUN 14 (7-18) mg/dl Creatinine 0.75 (0.6-1.4) mg/dl Glucose 107 H (70-99) mg/dl Calcium 8.6 (8.5-10.1) mg/dl AST 18 (15-37) U/L ALT 20 (12-78) U/L Alkaline Phosphatase 54 (45-117) U/L Total Protein 7.4 (6.4-8.2) gm/dl Albumin 3.7 (3.4-5.0) gm/dl Intake and Output 01/13/21 01/13/21 01/13/21 06:59 14:59 22:59 Intake Total 100 / 100 Output Total 1000 / 1000 Balance -900 / -900 Intake: IV 100 / 100 Magnesium Sulfate / D5w 1 gm In 100 / 100 100 ml @ 50 mls/hr IV 0930 ONE Rx#:[id number] Output: Urine 1000 / 1000 Other: Weight 98.8 kg Weight Measurement Method Standing Scale Patient Weight 01/14/21 06:59 Weight 98.8 kg Diagnostic Findings EKG performed today 01/13/2021 at 6 AM revealed normal sinus rhythm at 95 bpm, IVCD and LVH pattern. Unchanged compared to 10/07/2020. Left bundle branch block noted on 10/05/2020.
[2021-01-13] MEDS: HEPARIN SOD 5,000 UNIT/0.5 ML VIAL SQ SCH ×2 (16:45→21:25)
[2021-01-13] MEDS: DOXYCYCLINE HYCLATE 100 MG in DEXTROSE 5% 100 ML IV SCH (16:46)
[2021-01-13] MEDS: oxyCODONE/ACETAMINOPHEN 5mg/325mg TAB PO PRN (16:48)
[2021-01-13] MEDS: ALBUT/IPRATROP 3MG/0.5MG NEB 3 ML VIAL NEB PRN ×2 (17:25→22:52)
[2021-01-13] MEDS: FUROSEMIDE 40 MG in SYRINGE 0 ML IV SCH (18:30)
[2021-01-13] MEDS: DULoxetine HCL 60 MG CAP PO SCH (20:39)
[2021-01-13] MEDS: traZODone HCL 50 MG TAB PO SCH (20:39)
[2021-01-13] MEDS: ASPIRIN 81 MG ECTAB PO SCH (20:39)
[2021-01-13] MEDS: ATORVASTATIN 40 MG TAB PO SCH (20:39)
[2021-01-13] MEDS: DIVALPROEX EXTENDED RELEASE 250 MG TABCR PO SCH (20:40)
[2021-01-13] MEDS: DULoxetine HCL 30 MG CAP PO SCH (20:41)
[2021-01-13] MEDS: METOPROLOL SUCC 25MG EXT REL TAB PO SCH (20:41)
[2021-01-13] MEDS: PANTOprazole 40 MG TAB PO SCH (20:42)
[2021-01-13] MEDS: MAGNESIUM OXIDE 400 MG TAB PO SCH (20:42)
[2021-01-13] MEDS: SACUBITRIL-VALSARTAN 24-26 MG TAB PO SCH (20:43)
[2021-01-13] MEDS: POTASSIUM CHLORIDE 10 MEQ TABCR PO SCH (20:44)
[2021-01-13] MEDS: TAMSULOSIN HCL 0.4 MG CAP PO SCH (20:44)
[2021-01-14] MEDS: oxyCODONE/ACETAMINOPHEN 5mg/325mg TAB PO PRN (01:51)
[2021-01-14] MEDS: DOXYCYCLINE HYCLATE 100 MG in DEXTROSE 5% 100 ML IV SCH (03:02)
[2021-01-14] MEDS: HEPARIN SOD 5,000 UNIT/0.5 ML VIAL SQ SCH ×3 (05:01→21:29)
[2021-01-14 08:10] LABS: Hematocrit (blood only) 38.5 % (42-52); Hemoglobin 13.6 g/dL (14.0-18.0); Mean Corpuscular Hemoglobin 31.5 pg (25-34); Mean Corpuscular Hgb Conc 35.3 g/dL (32-36); Mean Corpuscular Volume 89.1 fL (80-100); Mean Platelet Volume 9.7 fL (7.4-10.4); Platelet Count 226 K/uL (130-400); RDW Coefficient of Variation 15.5 % (11.5-14.5); RDW Standard Deviation 51.1 fL (36.4-46.3); Red Blood Count 4.32 M/uL (4.7-6.1); White Blood Count 5.57 K/uL (4.8-10.8)
[2021-01-14 08:34] LABS: BUN Creatinine Ratio 16.8 (10-20); Calcium 8.7 mg/dl (8.5-10.1); Creatinine Clr Calc Pharmacy 70.4 ml/min; Est GFR (African American) 91.4 ml/min; Est GFR (Non-African American) 78.8 ml/min; Potassium 3.5 mmol/L (3.5-5.1)
[2021-01-14] MEDS: ASPIRIN 81 MG ECTAB PO SCH ×2 (08:43→21:26)
[2021-01-14] MEDS: FUROSEMIDE 40 MG in SYRINGE 0 ML IV SCH (08:43)
[2021-01-14] MEDS: CHOLECALCIFEROL 1,000 UNITS 25 MCG TAB PO SCH (08:43)
[2021-01-14] MEDS: POTASSIUM CHLORIDE 10 MEQ TABCR PO SCH ×2 (08:44→21:25)
[2021-01-14] MEDS: DIVALPROEX EXTENDED RELEASE 250 MG TABCR PO SCH ×2 (08:44→21:27)
[2021-01-14] MEDS: MAGNESIUM OXIDE 400 MG TAB PO SCH ×2 (08:44→21:26)
[2021-01-14] MEDS: FINASTERIDE 5 MG TAB PO SCH (08:44)
[2021-01-14] MEDS: ISOSORBIDE MONO EXTENDED REL 30 MG TABCR PO SCH (08:44)
[2021-01-14] MEDS: PANTOprazole 40 MG TAB PO SCH ×2 (08:44→21:28)
[2021-01-14] MEDS: guaiFENesin 600 MG TABCR PO SCH ×2 (08:44→21:29)
[2021-01-14] MEDS: METOPROLOL SUCC 25MG EXT REL TAB PO SCH ×2 (08:45→21:28)
[2021-01-14] MEDS: predniSONE 20 MG TAB PO SCH (08:45)
[2021-01-14] MEDS: FLUTICASONE PROPIONATE NA SPR 16 GM BTL NAE SCH (08:45)
[2021-01-14] MEDS: SACUBITRIL-VALSARTAN 24-26 MG TAB PO SCH ×2 (08:47→21:27)
[2021-01-14 08:48] LABS: Troponin I 0.22 ng/ml (0-0.045)
[2021-01-14] MEDS: LIDOCAINE 5% 1 PATCH TD SCH (10:29)
[2021-01-14] MEDS: SODIUM CHLORIDE 1 GM TABLET PO SCH ×2 (11:30→21:25)
--- NOTE | 2021-01-14 13:19 | Hospitalist Progress Note ---
Date of Service January 14, 2021 Assessment & Plan (1) SOB (shortness of breath): Plan: This is a 80 yo M with a PMH of chronic systolic heart failure, CAD (s/p PCI in 2007), hypertension, moderate aortic valve stenosis, COPD, tobacco use, CKD 3, diabetes and other medical problems listed below who presents with shortness of breath starting early yesterday morning. Likely multifactorial in setting of acute decompensated CHF and COPD exacerbation (2) Acute decompensated heart failure: Plan: EKG without acute ischemic change CXR with cardiomegaly, mild pulmonary edema, and suspected small pleural effusions BNP 8,860, troponin 0.239 (h/o chronic elevation) Given 40mg IV Lasix in ED Plan to continue IV Lasix 40mg BID, strict I&Os, low sodium diet Monitor on tele, trend troponin Most recent 2D echo from May 2020 with EF 40-45%, mild concentric LVH, mild global hypokinesis of left ventricle, moderate aortic valve stenosis and mild aortic regurgitation Appreciate cardiology input and recommendation He has been diuresing a lot Feels lot better and wants to go home today (3) COPD exacerbation: Plan: Currently smoking 1 ppd, declined nicotine patch Much improved after breathing treatment in ED Continue Duonebs Q4H PRN, Doxycycline 100mg BID, prednisone 40mg daily Supplemental O2 as needed Denies any shortness of breath at rest (4) Acute hyponatremia: Plan: Sodium 128 in setting of hypervolemia Serum and urine osm pending Expect improvement with diuresis Sodium level decreased to 127 We will give sodium tablet 1 g twice daily Monitor PRP while in the hospital (5) Elevated troponin: Plan: History of chronic troponin elevation in setting of demand ischemia, no chest pain Continue to trend (6) Hypertension: Plan: Continue Toprol (7) Hypomagnesemia: Plan: Replace Mag, continue oral supplement (8) Mood disorder: Plan: Stable. Continue duloxetine, divalproex No acute anxiety (9) Sciatica: Plan: Chronic home oxycodone - continue PT/OT evaluation DVT Ppx: SQ heparin Code status: FULL PCP: Sarah Gibbons Dispo: Admit to PCU Clinically improved and wants to go home We will plan to send him home tomorrow if remains stable Admission and Anticipated Discharge Date Admission Date: January 13, 2021 Subjective 01/14/2021 The patient was seen and examined in medical telemetry unit He has been complaining that he has been disturbed to much that he want to leave the hospital Apparently he has had a fall while going to the bathroom by himself He denies any symptoms today and his breathing is much improved Review of Systems Review of Systems: All systems reviewed and are unremarkable except as noted below Physical Exam Physical Exam: Lying in bed without any acute distress Constitutional: well developed, well nourished and + obese; not ill appearing Eyes: PERRL, conjunctivae normal, anicteric sclerae ENMT: external ear and nose normal, oropharynx normal Neck: trachea midline, no thyromegaly Respiratory: no respiratory distress Auscultation: + diminished lung sounds and + crackles (Minimal crackles at the bases) Cardiovascular: Rate/Rhythm: regular rate and regular rhythm Heart Sounds: normal S1, normal S2 and + murmur (2/6 ESM over precordium) Gastrointestinal (Abdomen): normal bowel sounds, soft, nontender, no hepatosplenomegaly Musculoskeletal: No acute arthritis in any joint Neurologic: moves all extremities; not confused Psychiatric: A+Ox3, euthymic affect Lymphatic: no cervical or axillary lymphadenopathy Results & Data Results & Data ([facility]) Vital Signs (Past 12 Hours) Vital Signs Temp Pulse Pulse Resp BP BP Pulse Ox 01/14/21 10:59 36.5 C 75 16 127/67 95 01/14/21 10:54 36.4 C L 67 18 112/72 95 01/14/21 08:05 36.4 C L 66 18 114/66 91 01/14/21 07:33 63 01/14/21 04:02 36.3 C L 70 18 128/65 93 Laboratory Results Short CBC 01/14/21 Range/Units 07:19 WBC 5.57 (4.8-10.8) K/uL Hgb 13.6 L (14.0-18.0) g/dL Hct 38.5 L (42-52) % Plt Count 226 (130-400) K/uL BMP 01/14/21 07:19 Sodium 127 L Potassium 3.5 Chloride 94 L Carbon Dioxide 28 BUN 15 Creatinine 0.92 Glucose 102 H Calcium 8.7 Cardiac Enzymes 01/13/21 01/13/21 01/14/21 Range/Units 15:03 20:44 07:19 Troponin I 0.249 H* 0.234 H* 0.220 H* (0-0.045) ng/ml Medications Administered Current Inpatient Medications Acetaminophen (Acetaminophen 325 Mg Tab) 650 mg PO Q4H PRN PRN Reason: Pain or Fever Stop: 02/12/21 14:51 Albuterol (Albut/Ipratrop 3mg/0.5mg Neb 3 Ml Vial) 3 ml NEB QIDR PRN PRN Reason: Shortness Of Breath Or Wheezing Stop: 02/12/21 14:51 Last Admin: 01/13/21 22:52 Dose: 3 ml Documented by: Aspirin (Aspirin 81 Mg Ectab) 81 mg PO BID KD Stop: 02/12/21 20:59 Last Admin: 01/14/21 08:43 Dose: 81 mg Documented by: Atorvastatin Calcium (Atorvastatin 40 Mg Tab) 80 mg PO HS [facility] Stop: 02/12/21 20:59 Last Admin: 01/13/21 20:39 Dose: 80 mg Documented by: Divalproex Sodium (Divalproex Extended Release 250 Mg Tabcr) 750 mg PO BID KD Stop: 02/12/21 20:59 Last Admin: 01/14/21 08:44 Dose: 750 mg Documented by: Duloxetine HCl (Duloxetine Hcl 60 Mg Cap) 60 mg PO HS KD Stop: 02/12/21 20:59 Last Admin: 01/13/21 20:39 Dose: 60 mg Documented by: Duloxetine HCl (Duloxetine Hcl 30 Mg Cap) 30 mg PO HS KD Stop: 02/12/21 20:59 Last Admin: 01/13/21 20:41 Dose: 30 mg Documented by: Finasteride (Finasteride 5 Mg Tab) 5 mg PO QAM KD Stop: 02/13/21 08:59 Last Admin: 01/14/21 08:44 Dose: 5 mg Documented by: Fluticasone Propionate (Fluticasone Propionate Na Spr 16 Gm Btl) 2 sprays [place] DAILY KD Stop: 02/13/21 08:59 Last Admin: 01/14/21 08:45 Dose: 2 sprays Documented by: Guaifenesin (Guaifenesin 600 Mg Tabcr) 600 mg PO Q12 KD Stop: 02/12/21 08:59 Last Admin: 01/14/21 08:44 Dose: 600 mg Documented by: Heparin Sodium (Porcine) (Heparin Sod 5,000 Unit/0.5 Ml Vial) 5,000 units SQ Q8 KD Stop: 02/12/21 14:51 Last Admin: 01/14/21 05:01 Dose: 5,000 units Documented by: Doxycycline Hyclate 100 mg/ (Dextrose) 110 mls @ 50 mls/hr IV Q12H KD Stop: 01/20/21 14:51 Last Infusion: 01/14/21 05:01 Dose: Infused Documented by: Furosemide 40 mg/ Syringe 4 mls @ 4 mls/min IV BID17 KD Stop: 02/12/21 17:59 Last Admin: 01/14/21 08:43 Dose: 4 mls/min Documented by: Isosorbide Mononitrate (Isosorbide [place] Extended Rel 30 Mg Tabcr) 30 mg PO QAM [facility] Stop: 02/13/21 08:59 Last Admin: 01/14/21 08:44 Dose: 30 mg Documented by: Lidocaine (Lidocaine 5% 1 Patch) 1 patch TD DAILY [facility] Stop: 02/13/21 08:59 Last Admin: 01/14/21 10:29 Dose: Not Given Documented by: Loperamide HCl (Loperamide Hcl 2 Mg Cap) 2 mg PO QID PRN PRN Reason: Diarrhea Stop: 02/12/21 14:59 Loratadine (Loratadine 10 Mg Tab) 10 mg PO DAILY PRN PRN Reason: allergy Stop: 02/12/21 14:51 Magnesium Oxide (Magnesium Oxide 400 Mg Tab) 400 mg PO BID [facility] Stop: 02/12/21 20:59 Last Admin: 01/14/21 08:44 Dose: 400 mg Documented by: Metoprolol Succinate (Metoprolol Succ 25mg Ext Rel Tab) 25 mg PO QAM [facility] Stop: 02/13/21 08:59 Last Admin: 01/14/21 08:45 Dose: 25 mg Documented by: Metoprolol Succinate (Metoprolol Succ 25mg Ext Rel Tab) 12.5 mg PO QPM [facility] Stop: 02/12/21 20:59 Last Admin: 01/13/21 20:41 Dose: 12.5 mg Documented by: Miscellaneous (Remove Lidoderm Patch) 1 ea N/A DAILY@2100 [facility] Stop: 02/12/21 20:59 Last Admin: 01/13/21 20:45 Dose: Not Given Documented by: Oxycodone/Acetaminophen (Oxycodone/Acetaminophen 5mg/325mg Tab) 1 tab PO Q6H PRN PRN Reason: Pain Stop: 01/27/21 14:51 Last Admin: 01/14/21 01:51 Dose: 1 tab Documented by: Pantoprazole Sodium (Pantoprazole 40 Mg Tab) 40 mg PO BID KD Stop: 02/12/21 20:59 Last Admin: 01/14/21 08:44 Dose: 40 mg Documented by: Polyethylene Glycol (Polyethylene (Miralax) 17 Gm Pack) 17 gm PO DAILY PRN PRN Reason: Constipation Stop: 02/12/21 14:51 Potassium Chloride (Potassium Chloride 10 Meq Tabcr) 10 meq PO BID KD Stop: 02/12/21 20:59 Last Admin: 01/14/21 08:44 Dose: 10 meq Documented by: Prednisone (Prednisone 20 Mg Tab) 40 mg PO DAILY [facility] Stop: 02/13/21 08:59 Last Admin: 01/14/21 08:45 Dose: 40 mg Documented by: Sacubitril/Valsartan (Sacubitril-Valsartan 24-26 Mg Tab) 1 tab PO BID KD Stop: 02/12/21 20:59 Last Admin: 01/14/21 08:47 Dose: 1 tab Documented by: Sodium Chloride (Sodium Chloride 1 Gm Tablet) 1 gm PO BID KD Stop: 02/13/21 11:29 Tamsulosin HCl (Tamsulosin Hcl 0.4 Mg Cap) 0.4 mg PO HS [facility] Stop: 02/12/21 20:59 Last Admin: 01/13/21 20:44 Dose: 0.4 mg Documented by: Trazodone HCl (Trazodone Hcl 50 Mg Tab) 50 mg PO HS [facility] Stop: 02/12/21 20:59 Last Admin: 01/13/21 20:39 Dose: 50 mg Documented by: Vitamin D (Cholecalciferol 1,000 Units 25 Mcg Tab) 2,000 units PO DAILY [facility] Stop: 02/13/21 08:59 Last Admin: 01/14/21 08:43 Dose: 2,000 units Documented by:
--- NOTE | 2021-01-14 17:11 | Cardiology Progress Note ---
Date of Service January 14, 2021 Assessment & Plan (1) Acute decompensated heart failure: Plan: Acute on chronic systolic heart failure. LVEF 40-45% on echo 05/2020. Mild troponin I elevation likely due to his underlying cardiomyopathy, myocardial strain. Hyponatremia 128 mmol/L noted which has trended down to 127 mmol/ l Hold further furosemide and check repeat BMP in am of 01/15. He is clinically improved. If sodium levels stable 01/15, likely discharge with plans of furosemide 40 mg / / and 20 Mg remaining days. Continue remaining cardiac medications including metoprolol aspirin atorvastatin Entresto. Continue SQ heparin for DVT prophylaxis. -Family at bedside. Daughter plans to take him home with her in [place]. Admission and Anticipated Discharge Date Admission Date: January 13, 2021 Subjective Mr Hyman is seen in cardiology follow-up today. He states he feels much better with resolution of his chest pain and improvement in his shortness of breath. He is eager for consideration of discharge. Telemetry reveals sinus rhythm in the range of the 80 to 90 bpm range. Physical Exam Physical Exam: Temp Pulse Resp BP Pulse Ox 36.6 C 82 18 122/71 93 01/14/21 15:06 01/14/21 15:57 01/14/21 15:06 01/14/21 15:06 01/14/21 15:06 Constitutional: WD/WN, vitals as above Respiratory: Auscultation: no crackles, no rales, no rhonchi and no wheezes Gastrointestinal (Abdomen): normal bowel sounds, soft, nontender, no hepatosplenomegaly Neurologic: PERRL, EOMI, accommodation nl, no face palsy, no dysarthria Results & Data ([facility]) Vital Signs (Past 12 Hours) Vital Signs Temp Pulse Pulse Resp BP Pulse Ox 01/14/21 15:57 82 01/14/21 15:06 36.6 C 78 18 122/71 93 01/14/21 10:59 36.5 C 75 16 127/67 95 01/14/21 10:54 36.4 C L 67 18 112/72 95 01/14/21 08:05 36.4 C L 66 18 114/66 91 01/14/21 07:33 63
[2021-01-14] MEDS: DULoxetine HCL 60 MG CAP PO SCH (21:26)
[2021-01-14] MEDS: DOXYCYCLINE HYCLATE 100 MG CAP PO SCH (21:26)
[2021-01-14] MEDS: TAMSULOSIN HCL 0.4 MG CAP PO SCH (21:26)
[2021-01-14] MEDS: traZODone HCL 50 MG TAB PO SCH (21:28)
[2021-01-14] MEDS: ATORVASTATIN 40 MG TAB PO SCH (21:28)
[2021-01-14] MEDS: DULoxetine HCL 30 MG CAP PO SCH (21:29)
[2021-01-15] MEDS: HEPARIN SOD 5,000 UNIT/0.5 ML VIAL SQ SCH (05:18)
[2021-01-15] MEDS: oxyCODONE/ACETAMINOPHEN 5mg/325mg TAB PO PRN (05:32)
[2021-01-15] MEDS: MAGNESIUM OXIDE 400 MG TAB PO SCH (05:32)
[2021-01-15] MEDS ORDERED: DOXYCYCLINE HYCLATE 100 MG CAP PO SCH (07:00)
[2021-01-15] MEDS: DOXYCYCLINE HYCLATE 100 MG CAP PO SCH (08:09)
[2021-01-15] MEDS: SACUBITRIL-VALSARTAN 24-26 MG TAB PO SCH (08:09)
[2021-01-15] MEDS: PANTOprazole 40 MG TAB PO SCH (08:10)
[2021-01-15] MEDS: METOPROLOL SUCC 25MG EXT REL TAB PO SCH (08:10)
[2021-01-15] MEDS: guaiFENesin 600 MG TABCR PO SCH (08:10)
[2021-01-15] MEDS: ASPIRIN 81 MG ECTAB PO SCH (08:10)
[2021-01-15] MEDS: FINASTERIDE 5 MG TAB PO SCH (08:11)
[2021-01-15] MEDS: FLUTICASONE PROPIONATE NA SPR 16 GM BTL NAE SCH (08:11)
[2021-01-15] MEDS: DIVALPROEX EXTENDED RELEASE 250 MG TABCR PO SCH (08:11)
[2021-01-15] MEDS: CHOLECALCIFEROL 1,000 UNITS 25 MCG TAB PO SCH (08:11)
[2021-01-15] MEDS: ISOSORBIDE MONO EXTENDED REL 30 MG TABCR PO SCH (08:11)
[2021-01-15] MEDS: SODIUM CHLORIDE 1 GM TABLET PO SCH (08:11)
[2021-01-15] MEDS: predniSONE 20 MG TAB PO SCH (08:11)
[2021-01-15] MEDS: LIDOCAINE 5% 1 PATCH TD SCH (08:12)
[2021-01-15] MEDS: POTASSIUM CHLORIDE 10 MEQ TABCR PO SCH (08:13)
[2021-01-15 09:34] LABS: Hemoglobin 13.4 g/dL (14.0-18.0); Mean Corpuscular Hemoglobin 31.5 pg (25-34); Mean Corpuscular Hgb Conc 35.3 g/dL (32-36); Mean Corpuscular Volume 89.2 fL (80-100); Mean Platelet Volume 9.4 fL (7.4-10.4); Platelet Count 218 K/uL (130-400); RDW Coefficient of Variation 15.6 % (11.5-14.5); RDW Standard Deviation 50.3 fL (36.4-46.3); Red Blood Count 4.26 M/uL (4.7-6.1); White Blood Count 7.38 K/uL (4.8-10.8)
[2021-01-15 09:55] LABS: BUN Creatinine Ratio 19.6 (10-20); Calcium 8.9 mg/dl (8.5-10.1); Creatinine Clr Calc Pharmacy 58.3 ml/min; Est GFR (African American) 72.8 ml/min; Est GFR (Non-African American) 62.8 ml/min; Potassium 3.7 mmol/L (3.5-5.1)
--- NOTE | 2021-01-15 11:51 | Hospitalist Progress Note ---
Date of Service January 15, 2021 Assessment & Plan (1) SOB (shortness of breath): Plan: This is a 80 yo M with a PMH of chronic systolic heart failure, CAD (s/p PCI in 2007), hypertension, moderate aortic valve stenosis, COPD, tobacco use, CKD 3, diabetes and other medical problems listed below who presents with shortness of breath starting early yesterday morning. Likely multifactorial in setting of acute decompensated CHF and COPD exacerbation Clinically much better with minimal wheezing at rest Passed 2 steps O2 saturation test Dementia Has been going through hospital delirium Quite manageable Will not give any medication to complicate the situation Daughter is aware about hospital delirium (2) Acute decompensated heart failure: Plan: EKG without acute ischemic change CXR with cardiomegaly, mild pulmonary edema, and suspected small pleural effusions BNP 8,860, troponin 0.239 (h/o chronic elevation) Given 40mg IV Lasix in ED Plan to continue IV Lasix 40mg BID, strict I&Os, low sodium diet Monitor on tele, trend troponin Most recent 2D echo from May 2020 with EF 40-45%, mild concentric LVH, mild global hypokinesis of left ventricle, moderate aortic valve stenosis and mild aortic regurgitation Appreciate cardiology input and recommendation He has been diuresing a lot Feels lot better and wants to go home today Did not receive any Lasix yesterday and will be sent home on 30 mg of Lasix daily (3) COPD exacerbation: Plan: Currently smoking 1 ppd, declined nicotine patch Much improved after breathing treatment in ED Continue Duonebs Q4H PRN, Doxycycline 100mg BID, prednisone 40mg daily Supplemental O2 as needed Denies any shortness of breath at rest We will continue with his usual medications for COPD at home (4) Acute hyponatremia: Plan: Sodium 128 in setting of hypervolemia Serum and urine osm pending Expect improvement with diuresis Sodium level decreased to 127 We will give sodium tablet 1 g twice daily Sodium level is little bit better at 129 today Discussed with the daughter and was advised to have a little extra salt in diet (5) Elevated troponin: Plan: History of chronic troponin elevation in setting of demand ischemia, no chest pain Continue to trend (6) Hypertension: Plan: Continue Toprol (7) Hypomagnesemia: Plan: Replace Mag, continue oral supplement (8) Mood disorder: Plan: Stable. Continue duloxetine, divalproex No acute anxiety (9) Sciatica: Plan: Chronic home oxycodone - continue PT/OT evaluation DVT Ppx: SQ heparin Code status: FULL PCP: Sarah Gibbons Dispo: Admit to PCU Clinically improved and wants to go home Will be discharged home this afternoon Admission and Anticipated Discharge Date Admission Date: January 13, 2021 Subjective 01/14/2021 The patient was seen and examined in medical telemetry unit He has been complaining that he has been disturbed to much that he want to leave the hospital Apparently he has had a fall while going to the bathroom by himself He denies any symptoms today and his breathing is much improved 01/15/2021 The patient was seen and examined in medical telemetry unit He was much better this morning but about half an hour ago he has been agitated and wants to leave He does have some wheezing but does not require any oxygen on 2 steps O2 saturation test Review of Systems Review of Systems: All systems reviewed and are unremarkable except as noted below Respiratory: no dyspnea Physical Exam Physical Exam: Lying in bed without any acute distress Constitutional: well developed, well nourished and + obese; not ill appearing Eyes: PERRL, conjunctivae normal, anicteric sclerae ENMT: external ear and nose normal, oropharynx normal Neck: trachea midline, no thyromegaly Respiratory: no respiratory distress Auscultation: + diminished lung sounds and + wheezes (Minimal wheezing bilaterally); no crackles (Minimal crackles at the bases) Cardiovascular: Rate/Rhythm: regular rate and regular rhythm Heart Sounds: normal S1, normal S2 and + murmur (2/6 ESM over precordium) Gastrointestinal (Abdomen): normal bowel sounds, soft, nontender, no hepatosplenomegaly Neurologic: moves all extremities; not confused Psychiatric: A+Ox3, euthymic affect Lymphatic: no cervical or axillary lymphadenopathy Results & Data Results & Data ([facility]) Vital Signs (Past 12 Hours) Vital Signs Temp Pulse Pulse Pulse Pulse Pulse Resp 01/15/21 11:22 76 72 70 01/15/21 07:39 36.8 C 73 18 01/15/21 07:37 74 01/15/21 03:31 36.7 C 82 20 01/14/21 23:55 37.0 C 83 20 Resp Resp Resp BP BP Pulse Ox Pulse Ox 01/15/21 11:22 18 18 18 94 07/24/21 07:39 111/67 95 01/15/21 07:37 01/15/21 03:31 125/73 92 01/14/21 23:55 146/76 H 93 Pulse Ox Pulse Ox 01/15/21 11:22 95 96 01/15/21 07:39 01/15/21 07:37 01/15/21 03:31 01/14/21 23:55 Laboratory Results Short CBC 01/15/21 Range/Units 09:12 WBC 7.38 (4.8-10.8) K/uL Hgb 13.4 L (14.0-18.0) g/dL Hct 38.0 L (42-52) % Plt Count 218 (130-400) K/uL BMP 01/15/21 09:12 Sodium 129 L Potassium 3.7 Chloride 95 L Carbon Dioxide 26 BUN 22 H Creatinine 1.11 Glucose 144 H Calcium 8.9 Medications Administered Current Inpatient Medications Acetaminophen (Acetaminophen 325 Mg Tab) 650 mg PO Q4H PRN PRN Reason: Pain or Fever Stop: 02/12/21 14:51 Albuterol (Albut/Ipratrop 3mg/0.5mg Neb 3 Ml Vial) 3 ml NEB QIDR PRN PRN Reason: Shortness Of Breath Or Wheezing Stop: 02/12/21 14:51 Last Admin: 01/13/21 22:52 Dose: 3 ml Documented by: Aspirin (Aspirin 81 Mg Ectab) 81 mg PO BID [facility] Stop: 02/12/21 20:59 Last Admin: 01/15/21 08:10 Dose: 81 mg Documented by: Atorvastatin Calcium (Atorvastatin 40 Mg Tab) 80 mg PO HS [facility] Stop: 02/12/21 20:59 Last Admin: 01/14/21 21:28 Dose: 80 mg Documented by: Divalproex Sodium (Divalproex Extended Release 250 Mg Tabcr) 750 mg PO BID [facility] Stop: 02/12/21 20:59 Last Admin: 01/15/21 08:11 Dose: 750 mg Documented by: Doxycycline Hyclate (Doxycycline Hyclate 100 Mg Cap) 100 mg PO BID [facility] Stop: 01/21/21 20:59 Last Admin: 01/15/21 08:09 Dose: 100 mg Documented by: Duloxetine HCl (Duloxetine Hcl 60 Mg Cap) 60 mg PO HS [facility] Stop: 02/12/21 20:59 Last Admin: 01/14/21 21:26 Dose: 60 mg Documented by: Duloxetine HCl (Duloxetine Hcl 30 Mg Cap) 30 mg PO HS [facility] Stop: 02/12/21 20:59 Last Admin: 01/14/21 21:29 Dose: 30 mg Documented by: Finasteride (Finasteride 5 Mg Tab) 5 mg PO QAM [facility] Stop: 02/13/21 08:59 Last Admin: 01/15/21 08:11 Dose: 5 mg Documented by: Fluticasone Propionate (Fluticasone Propionate Na Spr 16 Gm Btl) 2 sprays SIMONA DAILY [facility] Stop: 02/13/21 08:59 Last Admin: 01/15/21 08:11 Dose: 2 sprays Documented by: Guaifenesin (Guaifenesin 600 Mg Tabcr) 600 mg PO Q12 [facility] Stop: 02/12/21 08:59 Last Admin: 01/15/21 08:10 Dose: 600 mg Documented by: Heparin Sodium (Porcine) (Heparin Sod 5,000 Unit/0.5 Ml Vial) 5,000 units SQ Q8 [facility] Stop: 02/12/21 14:51 Last Admin: 01/15/21 05:18 Dose: Not Given Documented by: Isosorbide Mononitrate (Isosorbide [place] Extended Rel 30 Mg Tabcr) 30 mg PO QAM [facility] Stop: 02/13/21 08:59 Last Admin: 01/15/21 08:11 Dose: 30 mg Documented by: Lidocaine (Lidocaine 5% 1 Patch) 1 patch TD DAILY [facility] Stop: 02/13/21 08:59 Last Admin: 01/15/21 08:12 Dose: 1 patch Documented by: Loperamide HCl (Loperamide Hcl 2 Mg Cap) 2 mg PO QID PRN PRN Reason: Diarrhea Stop: 02/12/21 14:59 Loratadine (Loratadine 10 Mg Tab) 10 mg PO DAILY PRN PRN Reason: allergy Stop: 02/12/21 14:51 Last Admin: 01/15/21 08:11 Dose: 10 mg Documented by: Magnesium Oxide (Magnesium Oxide 400 Mg Tab) 400 mg PO Q12H [facility] Stop: 02/13/21 18:59 Last Admin: 01/15/21 05:32 Dose: 400 mg Documented by: Metoprolol Succinate (Metoprolol Succ 25mg Ext Rel Tab) 25 mg PO QAM [facility] Stop: 02/13/21 08:59 Last Admin: 01/15/21 08:10 Dose: 25 mg Documented by: Metoprolol Succinate (Metoprolol Succ 25mg Ext Rel Tab) 12.5 mg PO QPM [facility] Stop: 02/12/21 20:59 Last Admin: 01/14/21 21:28 Dose: 12.5 mg Documented by: Miscellaneous (Remove Lidoderm Patch) 1 ea N/A DAILY@2100 [facility] Stop: 02/12/21 20:59 Last Admin: 01/14/21 21:30 Dose: 1 ea Documented by: Oxycodone/Acetaminophen (Oxycodone/Acetaminophen 5mg/325mg Tab) 1 tab PO Q6H PRN PRN Reason: Pain Stop: 01/27/21 14:51 Last Admin: 01/15/21 05:32 Dose: 1 tab Documented by: Pantoprazole Sodium (Pantoprazole 40 Mg Tab) 40 mg PO BID [facility] Stop: 02/12/21 20:59 Last Admin: 01/15/21 08:10 Dose: 40 mg Documented by: Polyethylene Glycol (Polyethylene (Miralax) 17 Gm Pack) 17 gm PO DAILY PRN PRN Reason: Constipation Stop: 02/12/21 14:51 Potassium Chloride (Potassium Chloride 10 Meq Tabcr) 10 meq PO BID [facility] Stop: 02/12/21 20:59 Last Admin: 01/15/21 08:13 Dose: 10 meq Documented by: Prednisone (Prednisone 20 Mg Tab) 40 mg PO DAILY [facility] Stop: 02/13/21 08:59 Last Admin: 01/15/21 08:11 Dose: 40 mg Documented by: Sacubitril/Valsartan (Sacubitril-Valsartan 24-26 Mg Tab) 1 tab PO BID [facility] Stop: 02/12/21 20:59 Last Admin: 01/15/21 08:09 Dose: 1 tab Documented by: Sodium Chloride (Sodium Chloride 1 Gm Tablet) 1 gm PO BID [facility] Stop: 02/13/21 11:29 Last Admin: 01/15/21 08:11 Dose: 1 gm Documented by: Tamsulosin HCl (Tamsulosin Hcl 0.4 Mg Cap) 0.4 mg PO HS [facility] Stop: 02/12/21 20:59 Last Admin: 01/14/21 21:26 Dose: 0.4 mg Documented by: Trazodone HCl (Trazodone Hcl 50 Mg Tab) 50 mg PO [facility] Stop: 02/12/21 20:59 Last Admin: 01/14/21 21:28 Dose: 50 mg Documented by: Vitamin D (Cholecalciferol 1,000 Units 25 Mcg Tab) 2,000 units PO DAILY [facility] Stop: 02/13/21 08:59 Last Admin: 01/15/21 08:11 Dose: 2,000 units Documented by:
--- NOTE | 2021-01-16 07:32 | Discharge Summary ---
Date of Service January 16, 2021 Admission HPI Per Admitting Provider This is a 80 yo M with a PMH of chronic systolic heart failure, CAD (s/p PCI in 2007), hypertension, moderate aortic valve stenosis, COPD, tobacco use, CKD 3, mood disorder and other medical problems listed below who presents with shortness of breath starting early yesterday morning. Shortness of breath is associated with pleuritic chest pain, orthopnea and recent weight gain. Patient states he is not moving around much. Did take nitro yesterday without much improvement to pleuritic chest pain. Did receive a nebulizer treatment in the ER with improved symptoms. Denies any fever, chills, congestion or wheezing. No recent known sick contacts. Received second dose of Covid vaccine last week. Granddaughter manages medications for him - went over [employer] on the phone with her. Follows with Dr. Pennington in cardiology clinic. Most recent 2D echo from May 2020 with EF 40-45%, mild concentric LVH, mild global hypokinesis of left ventricle, moderate aortic valve stenosis and mild aortic regurgitation. Most recent cardiac catheterization performed at [facility] in 2019 without significant change from previous, no intervention. Patient is hard of hearing. No lightheadedness, headache, nausea, vomiting, abd pain, dysuria or constipation. Chronic diarrhea - takes PRN loperamide and supplements magnesium. Admission Exam Per Admitting Provider Physical Exam: General Appearance: WD/WN, vitals as above, NAD, sitting up in bed, conversational dyspnea Head: normocephalic, atraumatic Eyes: normal inspection, PERRL, conjunctivae normal, anicteric sclerae ENT: hard of hearing, external ear and nose normal, oropharynx normal Neck: normal visual inspection, trachea midline, no thyromegaly Respiratory: normal respiratory effort, diminished lung sounds at bases, no wheeze, rales or rhonchi. No accessory muscle use Cardiovascular: regular rate, rhythm, +systolic murmur, normal peripheral pulses, no BLE edema. 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, major depressive disorder Discharge Exam Constitutional well developed, well nourished and + obese; not ill appearing Eyes PERRL, conjunctivae normal, anicteric sclerae ENMT external ear and nose normal, oropharynx normal Neck trachea midline, no thyromegaly Respiratory no respiratory distress Auscultation: + diminished lung sounds and + wheezes (Minimal wheezing bilaterally); no crackles (Minimal crackles at the bases) Cardiovascular Rate/Rhythm: regular rate and regular rhythm Heart Sounds: normal S1, normal S2 and + murmur (2/6 ESM over precordium) Gastrointestinal (Abdomen) normal bowel sounds, soft, nontender, no hepatosplenomegaly Neurologic moves all extremities; not confused Psychiatric A+Ox3, euthymic affect Lymphatic no cervical or axillary lymphadenopathy Discharge Data Allergies Allergy/AdvReac Type Severity Reaction Status Date / Time cefaclor Allergy Intermediate swelling Verified 01/13/21 08:36 aspirin Allergy Mild bleeding Verified 01/13/21 08:36 ulcer (tolerates 81mg) Consultations 01/13/21 07:44 ED Decision to Admit Stat 01/13/21 14:52 Consult Cardiology Routine Hospital Course (1) SOB (shortness of breath): This is a 80 yo M with a PMH of chronic systolic heart failure, CAD (s/p PCI in 2007), hypertension, moderate aortic valve stenosis, COPD, tobacco use, CKD 3, diabetes and other medical problems listed below who presents with shortness of breath starting early yesterday morning. Likely multifactorial in setting of acute decompensated CHF and COPD exacerbation Clinically much better with minimal wheezing at rest Passed 2 steps O2 saturation test Dementia Has been going through hospital delirium Quite manageable Will not give any medication to complicate the situation Daughter is aware about hospital delirium (2) Acute decompensated heart failure: EKG without acute ischemic change CXR with cardiomegaly, mild pulmonary edema, and suspected small pleural ef fusions BNP 8,860, troponin 0.239 (h/o chronic elevation) Given 40mg IV Lasix in ED Plan to continue IV Lasix 40mg BID, strict I&Os, low sodium diet Monitor on tele, trend troponin Most recent 2D echo from May 2020 with EF 40-45%, mild concentric LVH, mild global hypokinesis of left ventricle, moderate aortic valve stenosis and mild aortic regurgitation Appreciate cardiology input and recommendation He has been diuresing a lot Feels lot better and wants to go home today Did not receive any Lasix yesterday and will be sent home on 30 mg of Lasix daily (3) COPD exacerbation: Currently smoking 1 ppd, declined nicotine patch Much improved after breathing treatment in ED Continue Duonebs Q4H PRN, Doxycycline 100mg BID, prednisone 40mg daily Supplemental O2 as needed Denies any shortness of breath at rest We will continue with his usual medications for COPD at home (4) Acute hyponatremia: Sodium 128 in setting of hypervolemia Serum and urine osm pending Expect improvement with diuresis Sodium level decreased to 127 We will give sodium tablet 1 g twice daily Sodium level is little bit better at 129 today Discussed with the daughter and was advised to have a little extra salt in diet (5) Elevated troponin: History of chronic troponin elevation in setting of demand ischemia, no chest pain Continue to trend (6) Hypertension: Continue Toprol (7) Hypomagnesemia: Replace Mag, continue oral supplement (8) Mood disorder: Stable. 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, major depressive disorder Condition on Discharge: Good Activity: Resume your previous activity Non-emergency contact: Primary Care Provider Call non-emergency contact if: you have any medication questions and your symptoms worsen Follow-up/Referrals: Salas Gibbons DO [Primary Care Provider] - (Date & Time 01/19/2021 11:00 AM Provider Salas Gibbons DO [facility] ) Diet: Heart Healthy Addtl Attending Provider Instructions: Please take precautions to avoid fall He can have little extra salt in diet Take your medications as advised Pending Studies at Discharge: No Stand-Alone Forms: My [facility], Smoking Cessation Medications and DC Order Prescriptions: New doxycycline hyclate 100 mg Capsule 100 mg PO BID 5 Days Qty: 10 RF: 0 prednisone 20 mg Tablet 40 mg PO DAILY 2 Days Qty: 4 RF: 0 albuterol sulfate 90 mcg/actuation HFA aerosol inhaler 1 inh inhalation Q6H PRN (Reason: shortness of breath or wheezing) Qty: 8.5 RF: 0 Continued atorvastatin [Lipitor] 80 mg Tablet 80 mg PO HS RF: 0 tamsulosin [Flomax] 0.4 mg Capsule 0.4 mg PO HS RF: 0 trazodone 100 mg Tablet 50 mg PO HS RF: 0 nitroglycerin [Nitrostat] 0.4 mg Tablet, Sublingual 0.4 mg sublingual UD PRN (Reason: Chest Pain) RF: 0 fluticasone propionate [Flonase Allergy Relief] 50 mcg/actuation [place],Suspension 2 spray INTRANASAL DAILY RF: 0 finasteride [Proscar] 5 mg Tablet 5 mg PO QAM RF: 0 omeprazole 20 mg Tablet,Delayed Release (Dr/Ec) 20 mg PO BID RF: 0 oxycodone-acetaminophen [Percocet] 5-325 mg tablet 1 tab PO Q6H PRN (Reason: Pain) RF: 0 duloxetine 60 mg capsule,delayed release(DR/EC) 60 mg PO HS RF: 0 lidocaine 5 % adhesive patch,medicated 1 patch topical DAILY Qty: 15 RF: 0 potassium chloride 10 mEq capsule, extended release 10 meq PO BID Qty: 60 RF: 5 magnesium oxide 400 mg magnesium capsule 400 mg PO BID Qty: 60 RF: 5 aspirin [Ecotrin Low Strength] 81 mg tablet,delayed release (DR/EC) 81 mg PO BID RF: 0 metoprolol succinate [Toprol XL] 25 mg tablet extended release 24 hr 25 mg PO QAM RF: 0 acetaminophen [Tylenol Extra Strength] 500 mg tablet 1,000 mg PO Q8 PRN (Reason: Pain) RF: 0 duloxetine 30 mg capsule,delayed release(DR/EC) 30 mg PO HS RF: 0 isosorbide mononitrate 30 mg Tablet Extended Release 24 Hr 30 mg PO QAM Qty: 30 RF: 0 metoprolol succinate 25 mg Tablet Extended Release 24 Hr 12.5 mg PO QPM Qty: 30 RF: 0 divalproex 250 mg Tablet Extended Release 24 Hr 750 mg PO BID Qty: 180 RF: 0 loperamide 2 mg Tablet 2 mg PO QID PRN (Reason: Diarrhea) RF: 0 loratadine 10 mg Tablet 10 mg PO DAILY PRN (Reason: allergy) RF: 0 cholecalciferol (vitamin D3) [Vitamin D3] 50 mcg (2,000 unit) Tablet 50 mcg PO DAILY RF: 0 Entresto 24-26 mg Tablet 1 tab PO BID RF: 0 Changed furosemide 20 mg Tablet 30 mg PO QAM Qty: 30 RF: 0 Discharge Orders: Discharge Order (Routine); Ordered 01/15/21 Ordered By: Cooper Willingham Admission Data Admit Date/Time: 01/13/21 08:50 Attending Provider: Cooper Willingham Admit Provider: Cooper Willingham Primary Care Provider: Salas Gibbons Other Providers: Cooper Willingham ; Rambo Cox Other Interventions: Discharge Summary Assessment (RN) Last Done: 01/15/21 12:07
== END 2021-01-15 12:52 | disposition home or self-care (01) | DRG 292 ==
LOC: ED 05:38 → 2N 08:50